=== PATIENT | female | born 1930 | race Caucasian/White ===

== ENCOUNTER → 2016-05-30 | Outpatient (CLI) | payer OTHER, BC ==
[~2016-05-30] MED LIST: ACET325T96 PO; ASCO250C17 PO; B-CO-25 PO; CALC-20 PO; CLOP1TAB5 PO; CZR50 PO; DOCU-94 PO; DONE1TAB11 PO; DONE1TAB26 PO; ENAL5TAB PO; EZET10TA47 PO; FINA1TAB36 PO; FLUT1INH7 INH; FRS/40 PO; FURO-85 PO; HYZ/50125 PO; IPRASOL4 INH; LOSA50TA6 PO; LVQ750 PO; METO25TA3 PO; MRLP17 PO; NIAC750T2 PO; OXGN; PLMINSR5 INH; POLY335019 PO; PRED10TA PO; RIVA4.6D TD; RMNER16 PO; SERT25TA PO; TPRSR25 PO; VITACAP37 PO; [UNRECOGNIZED DRUG - OTHER] PO
[2016-05-30 10:28] LABS: URINE APPEARANCE CLOUDY (CLEAR); URINE BILIRUBIN NEG (NEG); URINE COLOR YELLOW; URINE EPITHELIAL CELL AUTO >30 /lpf (0-5); URINE NITRITE NEG (NEG); URINE SPECIFIC GRAVITY 1.025 (1.000-1.030); UROBILINOGEN NEG (NEG)
[2016-05-30 10:30] LABS: MANUAL MICROSCOPIC REQUIRED? NO; REVIEW REQ? NO
== END ==
LOC: C.LABOUTLO 09:39
PROVIDERS: ATTEND Hospitalist
DX: N39.0 Urinary tract infection, site not specified (principal)

== ENCOUNTER 2016-07-13 09:38 | Inpatient (IN) | payer OTHER, BC ==
[~2016-07-13] VITALS: Ht 157.5 cm; Wt 109.9 kg
[~2016-07-13 09:38] MED LIST changes: -ACET325T96 PO; -CZR50 PO; -DOCU-94 PO; -DONE1TAB11 PO; -FLUT1INH7 INH; -FRS/40 PO; -FURO-85 PO; -HYZ/50125 PO; -IPRASOL4 INH; -LOSA50TA6 PO; -LVQ750 PO; -METO25TA3 PO; -MRLP17 PO; -OXGN; -PLMINSR5 INH; -POLY335019 PO; -PRED10TA PO; -SERT25TA PO; -TPRSR25 PO
--- NOTE | 2016-07-13 10:04 | EMERGENCY ROOM VISIT NOTE ---
History Report prepared by Radha: Kylie Wilson Under the Supervision of: Dr. Nabor العراقي D.O. First contact with patient: 09:49 Chief Complaint: SHORTNESS OF BREATH Stated Complaint: SOB, FEVER, HAS HISTORY OF CHF Nursing Triage Summary: Patient's daughter states [facility] called her to bring pt to ED for fever, cough, SOB for a few days, Tylenol not helping. Pt c/o cough, congestion, SOB. Tylenol 0830 History of Present Illness The patient is a 86 year old female who presents to the Emergency Room from [facility] to be evaluated for a persistent fever that began a couple days ago. Per patient's daughter, her temperature has been around 100. She was given Tylenol or Motrin about 1.5 hours ago although she cannot remember which. The patient also complains of shortness of breath and a nonproductive cough. Her daughter notes that she has some confusion at baseline. She wears oxygen at night. Past medical history includes congestive heart failure. Denies headaches , runny nose, chest pain, urinary symptoms, or other complaints. She had a flu shot in December 2015. Source of History: patient, family (daughter) Onset: a couple days ago Position: other (global) Symptom Intensity: temp of 100 Timing: other (persistent) Associated Symptoms: + SOB, + cough (nonproductive), No chest pain, No headache, No urinary symptoms Review of Systems See HPI for pertinent positives & negatives. A total of 10 systems reviewed and were otherwise negative. Past Medical & Surgical Medical Problems: (1) Alzheimers disease (2) High cholesterol (3) Hypertension (4) PNA (pneumonia) Family History Noncontributory secondary to age. Social History Smoking Status: Never Smoker Alcohol Use: none Drug Use: none Housing Status: lives alone Occupation Status: retired Current/Historical Medications Scheduled Budesonide (Pulmicort Respules 0.5MG/2ML), 2 ML INH BID Fluticasone Furoate-Vilanterol (Breo Ellipta 200-25 Mcg/INH), 1 PUFF INH DAILY Hctz/Losartan (Hyzaar 12.5MG/50MG), 1 TAB PO DAILY Scheduled PRN Acetaminophen Tab (Tylenol), 650 MG PO Q4 PRN for Mild Pain Docusate Sodium (Colace), 1 CAP PO BID PRN for Constipation Ipratropium-Albuterol (Duoneb), 1 TREATMENT INH Q6 PRN for SOB/Wheezing Oxygen (Oxygen), 2 LITERS NA HS PRN for Shortness of Breath Allergies Coded Allergies: No Known Allergies (Unverified , 02/19/13) Physical Exam Vital Signs Date Time Temp Pulse Resp B/P Pulse Ox O2 Delivery O2 Flow Rate FiO2 07/13/16 11:39 74 19 141/71 91 Room Air 07/13/16 11:34 Room Air 07/13/16 10:03 79 07/13/16 09:43 37.6 82 19 124/72 92 Room Air 07/13/16 09:43 92 Room Air Physical Exam GENERAL: Patient is awake, alert, and in no acute distress. Patient is mildly anxious but comfortable appearing. EYES: The conjunctivae are clear. The pupils are round and reactive. EARS, NOSE, MOUTH AND THROAT: The nose is without any evidence of any deformity. Mucous membranes are moist tongue is midline NECK: The neck is nontender and supple. RESPIRATORY: Normal respiratory effort is noted there is no evidence of wheezing rhonchi or rales CARDIOVASCULAR: Lung sounds are diminished throughout. Breath sounds were absent in the right base. Mild tachypnea with mild conversational dyspnea was appreciated. GASTROINTESTINAL: The abdomen is soft. Bowel sounds are present in all quadrants. Abdomen is nontender MUSCULOSKELETAL/EXTREMITIES: There is no evidence of gross deformity full range of motion is noted in the hips and shoulders SKIN: There was trace pedal edema bilaterally. NEUROLOGIC: Patient is awake alert and oriented x3 Medical Decision & Procedures ER Provider Diagnostic Interpretation: Radiology results as stated below per my review and radiologist interpretation: CHEST ONE VIEW PORTABLE CLINICAL HISTORY: Sepsis dyspnea COMPARISON STUDY: 08/09/2015 FINDINGS: Moderate stable cardiomegaly. Mild bibasilar infiltrative change. IMPRESSION: Mild bibasilar infiltrative change. Stable cardia megaly. Electronically signed by: Tommy Heart M.D. 07/13/2016 10:24 AM Dictated Date/Time: 07/13/2016 10:22 AM Laboratory Results 07/13/16 10:05 Red Blood Count 3.95, Mean Corpuscular Volume 96.7, Mean Corpuscular Hemoglobin 31.6, Mean Corpuscular Hemoglobin Concent 32.7, Mean Platelet Volume 10.2, Neutrophils (%) (Auto) 68.9, Lymphocytes (%) (Auto) 19.0, Monocytes (%) (Auto) 9.5, Eosinophils (%) (Auto) 1.2, Basophils (%) (Auto) 0.9, Neutrophils # (Auto) 4.05, Lymphocytes # (Auto) 1.12, Monocytes # (Auto) 0.56, Eosinophils # (Auto) 0.07, Basophils # (Auto) 0.05 07/13/16 10:05 Test 07/13/16 00:00 07/13/16 10:05 07/13/16 10:14 07/13/16 10:45 Influenza Type A Antigen Neg for Influ A (NEG) Influenza Type B Antigen Neg for Influ B (NEG) White Blood Count 5.88 K/uL (4.8-10.8) Red Blood Count 3.95 M/uL (4.2-5.4) Hemoglobin 12.5 g/dL (12.0-16.0) Hematocrit 38.2 % (37-47) Mean Corpuscular Volume 96.7 fL (80-100) Mean Corpuscular Hemoglobin 31.6 pg (25-34) Mean Corpuscular Hemoglobin Concent 32.7 g/dl (32-36) Platelet Count 152 K/uL (130-400) Mean Platelet Volume 10.2 fL (7.4-10.4) Neutrophils (%) (Auto) 68.9 % Lymphocytes (%) (Auto) 19.0 % Monocytes (%) (Auto) 9.5 % Eosinophils (%) (Auto) 1.2 % Basophils (%) (Auto) 0.9 % Neutrophils # (Auto) 4.05 K/uL (1.4-6.5) Lymphocytes # (Auto) 1.12 K/uL (1.2-3.4) Monocytes # (Auto) 0.56 K/uL (0.11-0.59) Eosinophils # (Auto) 0.07 K/uL (0-0.5) Basophils # (Auto) 0.05 K/uL (0-0.2) RDW Standard Deviation 52.1 fL (36.4-46.3) RDW Coefficient of Variation 14.6 % (11.5-14.5) Immature Granulocyte % (Auto) 0.5 % Immature Granulocyte # (Auto) 0.03 K/uL (0.00-0.02) Erythrocyte Sedimentation Rate 32 mm/hr (0-21) Prothrombin Time 11.4 SECONDS (9.0-12.0) Prothromb Time International Ratio 1.1 (0.9-1.1) Activated Partial Thromboplast Time 26.6 SECONDS (21.0-31.0) Partial Thromboplastin Ratio 1.0 Anion Gap 5.0 mmol/L (3-11) Estimated GFR () 92.2 Estimated GFR (Non- 79.6 BUN/Creatinine Ratio 28.6 (10-20) Calcium Level 8.6 mg/dl (8.5-10.1) Phosphorus Level 2.7 mg/dl (2.5-4.9) Magnesium Level 2.1 mg/dl (1.8-2.4) Total Bilirubin 0.6 mg/dl (0.2-1) Aspartate Amino Transf (AST/SGOT) 26 U/L (15-37) Alanine Aminotransferase (ALT/SGPT) 22 U/L (12-78) Alkaline Phosphatase 46 U/L (45-117) Total Creatine Kinase 250 U/L (26-192) Creatine Kinase MB 1.3 ng/ml (0.5-3.6) Creatine Kinase MB Ratio 0.5 (0-3.0) Troponin I < 0.015 ng/ml (0-0.045) C-Reactive Protein 2.42 mg/dl (0-0.29) Pro-B-Type Natriuretic Peptide 515 pg/ml (0-1800) Total Protein 6.4 gm/dl (6.4-8.2) Albumin 3.1 gm/dl (3.4-5.0) Globulin 3.3 gm/dl (2.5-4.0) Albumin/Globulin Ratio 0.9 (0.9-2) Bedside Lactic Acid Venous 1.63 mmol/L (0.90-1.70) Venous Blood pH 7.47 (7.36-7.41) Venous Blood Partial Pressure CO2 45 mmHg (38.0-50.0) Venous Blood Partial Pressure O2 55 mmHg Venous Blood HCO3 32 mmol/L Venous Blood Oxygen Saturation 88.7 % Venous Blood Base Excess 7.2 mmol/L Laboratory results per my review. Medications Administered Medications (Trade) Dose Ordered Sig/Bryon Route Start Time Stop Time Status Last Admin Dose Admin Levofloxacin 750 mg 750 mg NOW STAT IV 07/13/16 10:34 07/13/16 10:35 DC 07/13/16 11:40 750 MG Sodium Chloride (Nss 1000ml) 1,000 ml @ 999 mls/hr Q1H1M STAT IV 07/13/16 11:18 07/13/16 12:18 DC 07/13/16 11:40 999 MLS/HR ECG Indication: SOB/dyspnea Rate (beats per minute): 77 Rhythm: normal sinus Findings: no ectopy, other (no acute ST segment abnormality) ED Course 0957: The patient was evaluated in room B4. A complete history and physical examination were performed. 1034: Ordered Levofloxacin 750 mg IV, NSS 1000 ml @ 999 mls/hr IV. 1036: I reassessed the patient. 1120: Upon reevaluation, the patient is resting comfortably. I discussed results and treatment plan with the patient and her daughter. They verbalized agreement and understanding. 1127: I discussed the case with Dr. Lizbeth HARVEY Hospitalist. The patient will be evaluated for further management. Medical Decision Prior records/ancillary studies reviewed. Triage Nursing notes reviewed. Additional history obtained from the family. The patient's history was concerning for respiratory difficulties. Differential diagnosis: Etiologies such as infections, reactive airway disease, pneumonia, pneumothorax , COPD, CHF, cardiac ischemia, pulmonary embolism, musculoskeletal, gastrointestinal, as well as others were entertained. The patient is an 86-year-old female who presented to the emergency department for an evaluation of difficulty breathing. The patient had a low-grade fever noted at the custodial. The patient and a chest x-ray which did reveal signs of bilateral pneumonia. She was treated with IV fluids and IV antibiotics in emergency department. She was found have some degree of tachypnea. Given the patient's age and comorbidities as well as the findings on chest x-ray I felt she may be a candidate for inpatient management of this pneumonia. I discussed her case with the on-call [facility] hospitalist group. They've agreed to evaluate the patient in the emergency department for further management and disposition. Consults Time Called: [phone] Consulting Physician: Dr. Lizbeth HARVEY Hospitalist Returned Call: [phone] I discussed the case with him. The patient will be evaluated for further management. Impression Primary Impression: Bilateral pneumonia Scribe Attestation The scribe's documentation has been prepared under my direction and personally reviewed by me in its entirety. I confirm that the note above accurately reflects all work, treatment, procedures, and medical decision making performed by me. Departure Information Dispostion Being Evaluated By Hospitalist Referrals No Doctor, Assigned (PCP) Patient Instructions [facility] Problem Qualifiers Primary Impression: Bilateral pneumonia Pneumonia type: due to unspecified organism Lung location: lower lobe of lung Qualified Codes: J18.9 - Pneumonia, unspecified organism
[2016-07-13 10:22] LABS: BASO % 0.9 %; BASO ABS # 0.05 K/uL (0-0.2); COMPLETE YES; EOS % 1.2 %; HEMATOCRIT 38.2 % (37-47); IG% 0.5 %; LYMPH ABS # 1.12 K/uL (1.2-3.4); MEAN CELL VOLUME 96.7 fL (80-100); MEAN CORPUSCULAR HEMOGLOBIN 31.6 pg (25-34); MEAN CORPUSCULAR HGB CONC 32.7 g/dl (32-36); MEAN PLATELET VOLUME 10.2 fL (7.4-10.4); MONO % 9.5 %; NEUT % 68.9 %; PLATELET COUNT 152 K/uL (130-400); RED BLOOD COUNT 3.95 M/uL (4.2-5.4); WHITE BLOOD COUNT 5.88 K/uL (4.8-10.8)
--- NOTE | 2016-07-13 10:26 | DIAGNOSTIC IMAGING REPORT ---
CHEST ONE VIEW PORTABLE CLINICAL HISTORY: Sepsis dyspnea COMPARISON STUDY: 08/09/2015 FINDINGS: Moderate stable cardiomegaly. Mild bibasilar infiltrative change. IMPRESSION: Mild bibasilar infiltrative change. Stable cardia megaly. Electronically signed by: Tommy Heart M.D. 07/13/2016 10:24 AM Dictated Date/Time: 07/13/2016 10:22 AM
[2016-07-13] MEDS ORDERED: LEVAQUIN 750MG / 150ML D5W IV STA (10:34)
[2016-07-13] MEDS ORDERED: FLUT1INH7 INH (10:36)
[2016-07-13 10:42] LABS: ALT/SGPT 22 U/L (12-78); BLOOD UREA NITROGEN 20 mg/dl (7-18); BUN/CREATININE RATIO 28.6 (10-20); C-REACTIVE PROTEIN 2.42 mg/dl (0-0.29); CALCIUM 8.6 mg/dl (8.5-10.1); CARBON DIOXIDE 31 mmol/L (21-32); CHLORIDE 103 mmol/L (98-107); GLUCOSE 103 mg/dl (70-99); MAGNESIUM 2.1 mg/dl (1.8-2.4); POTASSIUM 3.4 mmol/L (3.5-5.1); SODIUM 139 mmol/L (136-145)
[2016-07-13] MEDS ORDERED: DOCU-94 PO (10:42)
[2016-07-13] MEDS ORDERED: ACET325T96 PO (10:42)
[2016-07-13] MEDS ORDERED: HYZ/50125 PO (10:42)
[2016-07-13] MEDS ORDERED: OXGN (10:42)
[2016-07-13] MEDS ORDERED: IPRASOL4 INH (10:42)
[2016-07-13] MEDS ORDERED: PLMINSR5 INH (10:42)
[2016-07-13 10:45] LABS: ALB/GLOB RATIO 0.9 (0.9-2); ALKALINE PHOSPHATASE 46 U/L (45-117); AST/SGOT 26 U/L (15-37); CKMB/CK RATIO 0.5 (0-3.0); PHOSPHORUS 2.7 mg/dl (2.5-4.9)
[2016-07-13 10:46] LABS: INR 1.1 (0.9-1.1); PROTHROMBIN TIME (PATIENT) 11.4 SECONDS (9.0-12.0)
[2016-07-13 10:59] LABS: VEN BLD GAS O2 SATURATION 88.7 %; VEN BLOOD GAS BASE EXCESS 7.2 mmol/L
[2016-07-13] MEDS ORDERED: SODIUM CHLORIDE 0.9% 1000ML 1,000 ML IV STA (11:18)
--- NOTE | 2016-07-13 12:43 | History and Physical ---
History & Physical Date & Time of Service: Jul 13, 2016 at 12:40 Chief Complaint: Sob, Fever, Has History Of Chf Primary Care Physician: Christina Lemos DO History of Present Illness Source: patient, family Attending: Dr. Major This is an 86-year-old female this admitted for shortness of breath and fever over last 3-4 days. She currently resides at [facility] and has been there since 2012 when she had a humeral fracture. She has a daughter, Debbi, that works in our GI lab. Debbi is available for my interview and physical examination and substantiates the history as given by her mother. The patient apparently had fever over last 3-4 days with productive sputum of yellow to wen color and thickening inconsistency of last two days. Patient did have increased shortness of breath last night and required multiple bronchodilator treatments with little effect. Patient is not hypoxic and currently has an SaO2 of 93% on room air. Chest x-ray was completed and shows probable left lower lobe infiltrate with some blunting of the right costophrenic angle. Patient is rhonchorous as well as with Rales bilaterally in the bases on exam. Patient is hemodynamically stable and denies any chest pain or tightness. She has no back pain or flank pain. She denies reproducible pain or pain with cough. She has no pleuritic pain or hemoptysis. Patient has no history of tobacco abuse or ethanol abuse and no vocational or environmental exposure concerning for pulmonary disease. She is on Breo-Ellipta and albuterol as an outpatient. She denies history of COPD or follow-up with pulmonology. Otherwise, past medical history is significant for dementia, hypertension, and CHF. Most recent documented echocardiogram is from 2011 and was a dobutamine stress echocardiogram. Patient had no myocardial ischemia at 85% of maximum predicted heart rate. There was no dobutamine-induced chest pain. No EKG changes. Baseline echocardiogram noted to have normal left ventricular systolic function and mild left ventricular hypertrophy. LVEF was estimated at 60%. The right ventricle demonstrated normal systolic function. While the patient is listed have dementia with questionable Alzheimer's, she is alert and oriented and able to give name, date of , place, and general history but looks to her daughter for confirmation on history and all questions. She has no other acute complaints. 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 Prior to that worked for the [employer] in [place]) Immunizations History of Influenza Vaccine: Yes Influenza Vaccine Date: Feb 21, 2013 History of Tetanus Vaccine?: Unknown History of Pneumococcal: Yes History of Hepatitis B Vaccine: Unknown Multi-Drug Resistant Organisms History of MDRO: No Allergies Coded Allergies: No Known Allergies (Unverified , 02/19/13) Home Medications Scheduled Budesonide (Pulmicort Respules 0.5MG/2ML), 2 ML INH BID Fluticasone Furoate-Vilanterol (Breo Ellipta 200-25 Mcg/INH), 1 PUFF INH DAILY Hctz/Losartan (Hyzaar 12.5MG/50MG), 1 TAB PO DAILY Scheduled PRN Acetaminophen Tab (Tylenol), 650 MG PO Q4 PRN for Mild Pain Docusate Sodium (Colace), 1 CAP PO BID PRN for Constipation Ipratropium-Albuterol (Duoneb), 1 TREATMENT INH Q6 PRN for SOB/Wheezing Oxygen (Oxygen), 2 LITERS NA HS PRN for Shortness of Breath Review of Systems A total of 12 systems was reviewed and is negative other than as listed above in the HPI Physical Exam Vital Signs Date Time Temp Pulse Resp B/P Pulse Ox O2 Delivery O2 Flow Rate FiO2 07/13/16 11:39 74 19 141/71 91 Room Air 07/13/16 11:34 Room Air 07/13/16 10:03 79 07/13/16 09:43 37.6 82 19 124/72 92 Room Air 07/13/16 09:43 92 Room Air GENERAL : No acute distress. Pleasant EYES: No icterus, gaze conjugate. Pupils equal and reactive to light area to nystagmus NOSE: No evidence of epistaxis. No septal breech MOUTH: No lesions or candidiasis. No significant dental caries. No dentures NECK: Supple. No appreciation of carotid bruits. No lymphadenopathy. LUNGS: Bilateral upper field rhonchi and bibasilar rales. No appreciation of bronchospasm HEART: Regular, rate controlled area no appreciation of ectopy ABDOMEN: Soft, NT, ND, BS Present. No guarding or tenderness to deep palpation EXTREMITIES: Bilateral +1 pitting of the lower extremities, pedal pulses intact and equal. NEURO: A&OX3. Needs redirected at times. Demonstrates good sense of humor that is appropriate. Deep tendon reflexes of brachioradialis, patellar tendons 2/4 bilaterally. No pronator drift. Cervical or function intact with finger to nose and rapid alternating movements. Gait and Romberg deferred. Toes unequivocal bilaterally Diagnostics Laboratory Results Results Past 24 Hours Test 07/13/16 10:05 07/13/16 10:14 07/13/16 10:45 Range/Units White Blood Count 5.88 4.8-10.8 K/uL Red Blood Count 3.95 4.2-5.4 M/uL Hemoglobin 12.5 12.0-16.0 g/dL Hematocrit 38.2 37-47 % Mean Corpuscular Volume 96.7 80-100 fL Mean Corpuscular Hemoglobin 31.6 25-34 pg Mean Corpuscular Hemoglobin Concent 32.7 32-36 g/dl Platelet Count 152 130-400 K/uL Mean Platelet Volume 10.2 7.4-10.4 fL Neutrophils (%) (Auto) 68.9 % Lymphocytes (%) (Auto) 19.0 % Monocytes (%) (Auto) 9.5 % Eosinophils (%) (Auto) 1.2 % Basophils (%) (Auto) 0.9 % Neutrophils # (Auto) 4.05 1.4-6.5 K/uL Lymphocytes # (Auto) 1.12 1.2-3.4 K/uL Monocytes # (Auto) 0.56 0.11-0.59 K/uL Eosinophils # (Auto) 0.07 0-0.5 K/uL Basophils # (Auto) 0.05 0-0.2 K/uL RDW Standard Deviation 52.1 36.4-46.3 fL RDW Coefficient of Variation 14.6 11.5-14.5 % Immature Granulocyte % (Auto) 0.5 % Immature Granulocyte # (Auto) 0.03 0.00-0.02 K/uL Erythrocyte Sedimentation Rate 32 0-21 mm/hr Prothrombin Time 11.4 9.0-12.0 SECONDS Prothromb Time International Ratio 1.1 0.9-1.1 Activated Partial Thromboplast Time 26.6 21.0-31.0 SECONDS Partial Thromboplastin Ratio 1.0 Sodium Level 139 136-145 mmol/L Potassium Level 3.4 3.5-5.1 mmol/L Chloride Level 103 98-107 mmol/L Carbon Dioxide Level 31 21-32 mmol/L Anion Gap 5.0 3-11 mmol/L Blood Urea Nitrogen 20 7-18 mg/dl Creatinine 0.70 0.60-1.20 mg/dl Estimated GFR () 92.2 Estimated GFR (Non- 79.6 BUN/Creatinine Ratio 28.6 10-20 Random Glucose 103 70-99 mg/dl Calcium Level 8.6 8.5-10.1 mg/dl Phosphorus Level 2.7 2.5-4.9 mg/dl Magnesium Level 2.1 1.8-2.4 mg/dl Total Bilirubin 0.6 0.2-1 mg/dl Aspartate Amino Transf (AST/SGOT) 26 15-37 U/L Alanine Aminotransferase (ALT/SGPT) 22 12-78 U/L Alkaline Phosphatase 46 45-117 U/L Total Creatine Kinase 250 26-192 U/L Creatine Kinase MB 1.3 0.5-3.6 ng/ml Creatine Kinase MB Ratio 0.5 0-3.0 Troponin I < 0.015 0-0.045 ng/ml C-Reactive Protein 2.42 0-0.29 mg/dl Pro-B-Type Natriuretic Peptide 515 0-1800 pg/ml Total Protein 6.4 6.4-8.2 gm/dl Albumin 3.1 3.4-5.0 gm/dl Globulin 3.3 2.5-4.0 gm/dl Albumin/Globulin Ratio 0.9 0.9-2 Bedside Lactic Acid Venous 1.63 0.90-1.70 mmol/L Venous Blood pH 7.47 7.36-7.41 Venous Blood Partial Pressure CO2 45 38.0-50.0 mmHg Venous Blood Partial Pressure O2 55 mmHg Venous Blood HCO3 32 mmol/L Venous Blood Oxygen Saturation 88.7 % Venous Blood Base Excess 7.2 mmol/L Microbiology Results 07/13/16 Blood Culture, Received Pending 07/13/16 Blood Culture, Received Pending Diagnostic Radiology CHEST ONE VIEW PORTABLE CLINICAL HISTORY: Sepsis dyspnea COMPARISON STUDY: 08/09/2015 FINDINGS: Moderate stable cardiomegaly. Mild bibasilar infiltrative change. IMPRESSION: Mild bibasilar infiltrative change. Stable cardia megaly. Electronically signed by: Tommy Heart M.D. 07/13/2016 10:24 AM Impression Assessment and Plan PNEUMONIA Patient with increased sputum over last 2-3 days with a MAXIMUM TEMPERATURE of 37.6 Celsius Sputum consistency been dark wen and thick No hemoptysis or chest pain. No pleuritic pain. Chest x-ray reveals bilateral development of infiltrate Start Levofloxacin 750 mg IV daily. First dose received in the emergency department. Pharmacy consultation for dosing secondary to age Check sputum culture Check blood cultures 2 No leukocytosis - WBC 5.88 Oxygenation adequate on room air Incentive spirometry Will admit to medical floor HISTORY OF ASTHMA No evidence of PFTs Currently on Breo-Ellipta and albuterol as an outpatient Continue bronchodilators No bronchospasm on examination Oxygenation adequate on room air Follow clinically HISTORY OF HYPERTENSION Systolic blood pressure 135 at the time of my exam Continue home medications Vital signs per protocol HISTORY OF CHF No evidence of fluid overload on chest x-ray Most recent echocardiogram with no mention of systolic or diastolic heart dysfunction If no improvement to shortness of breath consider repeat echocardiogram At this time patient will be AHA diet Received 1 L of fluid in the emergency department Saline lock but no maintenance fluids at this time Monitor clinically HYPERLIPIDEMIA Continue usual home meds GI No history of GERD No indication for GI prophylaxis at this time Continue to monitor clinically DVT PROPHYLAXIS No history of thromboembolic disease Teds/SCDs Subcutaneous heparin every 12 hours Thank you for including us in the care of this patient. Case and presentation discussed with Dr. Major prior to decision for admission. Please refer to Dr. Major's addendum for further recommendations Level of Care Med/Surg Advanced Directives Existing Advance Directive: No Existing Living Will: No Existing Power of Industrial Engineering Analyst: No Existing Health Care Proxy: No Resuscitation Status DO NOT RESUSCITATE (discussion with patient with daughter in room. No heroic measures should patient have cardiopulmonary arrest. However, if pneumonia worsens and patient would benefit from one or two days of mechanical ventilation for treatment of pneumonia this will be agreeable to the patient and the family.) VTE Prophylaxis VTE Risk Assessment Done? Y/N: Yes Risk Level: Moderate Given or contraindicated: Unfractionated heparin SQ, T.E.D. Stockings, SCD's Social Service Consult Lives in [facility] Note Attending Admission Note & Attestation: Pt seen/examined, chart reviewed, care plan d/w NURIA Anaya. I agree w/ the orozco components of his admission documentation. 86yo female with h/o Alzheimer's dementia & HTN presenting with several days of cough, sputum production and fever. Daughter also has noted worsening LE edema. She does not carry a formal dx of COPD or asthma, but apparently has been using inhalers for about 6 months due to respiratory issues. Daughter has not noted any dysphagia/swallowing difficulty. PMH, PSH, allergies, meds, sochx, famhx, ros - reviewed VSS afebrile gen - gets dyspneic with laying in the bed, o/w NAD neck - JVD present heart - RRR, s1, s2 lungs - decreased BS bases, scant rales bases, no increased WOB abd - soft, NT, ND, no HSM ext - left knee effusion vs bursal fluid but no pain; 1+ edema ankles b/l cxr - bibasilar infiltrates A/P: 1. suspected b/l community-aquired pneumonia 2. ?chronic lung disease with use of inhalers 3. ?acute/chronic diastolic CHF agree with IV abx lasix 20mg IV x 1 labs in AM pulmonary toilet no Rx on left knee given no symptoms Jorden Major MD
[2016-07-13] MEDS ORDERED: DOCUSATE SODIUM 100 MG CAP PO PRN (13:00)
[2016-07-13] MEDS ORDERED: ALBUT/IPRATROP 3MG/0.5MG NEB 3 ML VIAL INH PRN (13:00)
[2016-07-13] MEDS ORDERED: ACETAMINOPHEN 325 MG TAB PO PRN (13:00)
[2016-07-13] MEDS ORDERED: LEVOFLOXACIN CONSULT ACTIVE PRN (13:13)
[2016-07-13 13:52] LABS: URINE APPEARANCE CLEAR (CLEAR); URINE BILIRUBIN NEG (NEG); URINE COLOR YELLOW; URINE EPITHELIAL CELL AUTO 20-30 /lpf (0-5); URINE NITRITE NEG (NEG); URINE SPECIFIC GRAVITY 1.016 (1.000-1.030); UROBILINOGEN NEG (NEG); ZZUR CULT IF INDIC CLEAN CATCH NO
[2016-07-13] MEDS ORDERED: PATIENT'S HEIGHT AND/OR WEIGHT NEEDED SCH (14:00)
[2016-07-13 14:05] LABS: MANUAL MICROSCOPIC REQUIRED? NO; REVIEW REQ? NO
[2016-07-13 15:30] VITALS: BP 159/84; PULSE 75; TEMP 36.7; O2SAT 93
[2016-07-13 15:40] LABS: INFLUENZA A PCR Neg for Influ A (NEG); INFLUENZA B PCR Neg for Influ B (NEG)
[2016-07-13] MEDS ORDERED: POTASSIUM CHLORIDE 10 MEQ TABCR PO STA (15:50)
[2016-07-13] MEDS ORDERED: FUROSEMIDE INJ 20 MG in SYRINGE 0 ML IV SCH (16:00)
[2016-07-13 17:12] VITALS: BP 159/84; PULSE 75; TEMP 36.7; O2SAT 93; Ht 157.5 cm; Wt 109.9 kg
[2016-07-13 19:32] VITALS: PULSE 68; O2SAT 93
[2016-07-13] MEDS: BUDESONIDE 0.5 MG/2 ML VIAL (PULMICORT) INH SCH (19:32)
[2016-07-13] MEDS: HEPARIN SOD 5000 UNIT/0.5 ML CARP SQ SCH (21:30)
[2016-07-14] VITALS (9 sets, daily range): BP systolic 130–164; BP diastolic 80–83; PULSE 70–86; TEMP 36.5–37.2; O2SAT 91–96
[2016-07-14] MEDS ORDERED: NURSING DECISION MEDICATION ORDER SCH (01:30)
[2016-07-14] MEDS ORDERED: MICONAZOLE NITRATE POWDER 43 GM EXT PRN (02:00)
[2016-07-14] MEDS: BUDESONIDE 0.5 MG/2 ML VIAL (PULMICORT) INH SCH ×2 (07:22→19:37)
--- NOTE | 2016-07-14 08:14 | Clinical Documentation Query ---
QUERY 1 OF [address] ELLIS, In your clinical opinion does this patient have: ( ) Chronic kidney disease, stage 2 ( ) Other explanation of clinical findings (Please Explain) ( ) Unable to determine (Please Define) ( ) Need to Discuss ( x ) Not Agree - no CKD; CrCl >60 The medical record reflects the following clinical findings, treatment, and risk factors. Clinical Indicators: 86 yo female presenting with pneumonia and suspected acute on chronic diastolic CHF. Review of historical GFR showed range of 64.3-84.3 over the past 2 years Treatment: monitor PRP's/GFR Risk Factors: age, HTN, chronic diastolic CHF QUERY 2 OF 2 In your clinical opinion does this patient have: (x ) morbid obesity with BMI 45.1 ( ) Other explanation of clinical findings (Please Explain) ( ) Unable to determine (Please Define) ( ) Need to Discuss ( ) Not Agree A significantly high ( > 40) or low ( < 19) BMI will impact the severity of illness and risk of mortality of your patient. However, the physician must document a correlating diagnosis in the medical record. Please clarify and document your clinical opinion in the progress notes and discharge summary. Terms such as "probable", "suspected", "likely", "questionable", "possible", or "still to be ruled out" are acceptable. IF IN AGREEMENT, YOU MUST DOCUMENT ABOVE DIAGNOSTIC STATEMENT IN DAILY PROGRESS NOTES AND DISCHARGE SUMMARY. This document is not part of the patient's record. Thank You, Amber Hodges, RN [phone]
[2016-07-14] MEDS: LOSARTAN/HCTZ 50-12.5 EA TAB PO SCH (08:18)
[2016-07-14] MEDS: HEPARIN SOD 5000 UNIT/0.5 ML CARP SQ SCH ×2 (08:21→21:03)
[2016-07-14 08:34] LABS: BASO % 0.9 %; BASO ABS # 0.05 K/uL (0-0.2); COMPLETE YES; EOS % 1.6 %; HEMATOCRIT 37.2 % (37-47); IG% 0.4 %; LYMPH % 33.2 %; LYMPH ABS # 1.83 K/uL (1.2-3.4); MEAN CELL VOLUME 94.7 fL (80-100); MEAN CORPUSCULAR HEMOGLOBIN 31.6 pg (25-34); MEAN CORPUSCULAR HGB CONC 33.3 g/dl (32-36); NEUT % 53.9 %; PLATELET COUNT 144 K/uL (130-400); RED BLOOD COUNT 3.93 M/uL (4.2-5.4); WHITE BLOOD COUNT 5.51 K/uL (4.8-10.8)
[2016-07-14 09:04] LABS: BUN/CREATININE RATIO 24.9 (10-20); CALCIUM 8.1 mg/dl (8.5-10.1); CREATININE 0.61 mg/dl (0.60-1.20); POTASSIUM 3.7 mmol/L (3.5-5.1)
[2016-07-14] MEDS ORDERED: ALBUT/IPRATROP 3MG/0.5MG NEB 3 ML VIAL INH PRN (10:15)
[2016-07-14] MEDS: ALBUT/IPRATROP 3MG/0.5MG NEB 3 ML VIAL INH SCH ×3 (10:15→19:36)
[2016-07-14] MEDS ORDERED: POTASSIUM CHLORIDE 10 MEQ TABCR PO ONE ×2 (11:00→17:30)
[2016-07-14] MEDS ORDERED: FUROSEMIDE INJ 40 MG in SYRINGE 0 ML IV ONE (11:00)
--- NOTE | 2016-07-14 11:06 | DIAGNOSTIC IMAGING REPORT ---
CHEST 2 VIEWS ROUTINE CLINICAL HISTORY: Pneumonia. COMPARISON STUDY: Chest radiograph July 13, 2016. FINDINGS: Lung volumes are normal. There is no pneumothorax or pleural effusion. Moderate cardiomegaly is noted. There is no evidence of pulmonary edema. Bibasilar opacities persist. There is also mild right upper lung interstitial thickening with opacity. IMPRESSION: 1. Persistent bibasilar and right upper lung opacities suggestive of pneumonia. Radiographic follow-up to ensure resolution is recommended. 2. Stable cardiomegaly without evidence of pulmonary edema. Electronically signed by: Marco Ribeiro M.D. 07/14/2016 11:05 AM Dictated Date/Time: 07/14/2016 11:03 AM
[2016-07-14] MEDS ORDERED: LEVOFLOXACIN / D5W 750 MG in PREMIXED IN D5W 150 ML IV SCH (12:00)
[2016-07-14] MEDS ORDERED: FUROSEMIDE INJ 20 MG in SYRINGE 0 ML IV ONE (17:30)
[2016-07-15] VITALS (10 sets, daily range): BP systolic 137–188; BP diastolic 72–78; PULSE 75–84; TEMP 36.4–36.6; O2SAT 91–97
--- NOTE | 2016-07-15 06:08 | Progress Note ---
Subjective Date of Service: late entry for visit July 14, 2016. Subjective Pt evaluation today including: conversation w/ patient, physical exam, chart review, lab review, review of studies (cxr), review of inpatient medication list Pain: none voiced by patient PO Intake: good per staff I received a call this AM from staff that she was having hard time breathing and that lung sound revealed significant crackles She apparently was visibly dyspneic order for lasix 40mg IV x 1 given had 2 liter diuresis by the time of my assessment her lung exam and overall status were much improved staff report confusion throughout the day Problem List Medical Problems: (1) Bilateral pneumonia Status: Acute Review of Systems unable to obtain 2nd to altered MS Objective Vital Signs Date Time Temp Pulse Resp B/P Pulse Ox O2 Delivery O2 Flow Rate FiO2 07/15/16 00:00 Nasal Cannula 2.0 07/14/16 23:17 36.8 86 17 164/83 91 Nasal Cannula 2.0 07/14/16 19:37 78 16 93 Room Air 07/14/16 15:45 Nasal Cannula 2.0 07/14/16 15:27 36.5 78 18 130/80 96 Room Air 07/14/16 15:19 75 16 96 Nasal Cannula 2.0 07/14/16 10:16 70 16 96 Nasal Cannula 2.0 07/14/16 08:58 37.2 70 16 148/83 93 Nasal Cannula 2.0 07/14/16 08:00 Nasal Cannula 2.0 07/14/16 07:22 72 16 95 Nasal Cannula 5.0 Physical Exam General Appearance: no apparent distress ENT: pharynx normal Neck: + JVD Respiratory/Chest: no respiratory distress, no accessory muscle use, + crackles (both bases), + wheezing (b/l) Cardiovascular: regular rate, rhythm, no gallop Abdomen: normal bowel sounds, non tender, soft, no organomegaly Extremities: + pedal edema, + swelling Neurologic/Psychiatric: alert, + disoriented Laboratory Results Last 24 Hours Test 07/14/16 08:10 07/15/16 04:44 White Blood Count 5.51 K/uL Red Blood Count 3.93 M/uL Hemoglobin 12.4 g/dL Hematocrit 37.2 % Mean Corpuscular Volume 94.7 fL Mean Corpuscular Hemoglobin 31.6 pg Mean Corpuscular Hemoglobin Concent 33.3 g/dl Platelet Count 144 K/uL Mean Platelet Volume 10.0 fL Neutrophils (%) (Auto) 53.9 % Lymphocytes (%) (Auto) 33.2 % Monocytes (%) (Auto) 10.0 % Eosinophils (%) (Auto) 1.6 % Basophils (%) (Auto) 0.9 % Neutrophils # (Auto) 2.97 K/uL Lymphocytes # (Auto) 1.83 K/uL Monocytes # (Auto) 0.55 K/uL Eosinophils # (Auto) 0.09 K/uL Basophils # (Auto) 0.05 K/uL RDW Standard Deviation 50.2 fL RDW Coefficient of Variation 14.4 % Immature Granulocyte % (Auto) 0.4 % Immature Granulocyte # (Auto) 0.02 K/uL Sodium Level 141 mmol/L Potassium Level 3.7 mmol/L Chloride Level 105 mmol/L Carbon Dioxide Level 28 mmol/L Anion Gap 8.0 mmol/L Blood Urea Nitrogen 15 mg/dl Creatinine 0.61 mg/dl Est Creatinine Clear Calc Drug Dose 81.1 ml/min Estimated GFR () 96.5 Estimated GFR (Non- 83.2 BUN/Creatinine Ratio 24.9 Random Glucose 97 mg/dl Calcium Level 8.1 mg/dl Assessment and Plan 86yo female with: 1. acute respiratory distress 2nd to acute/chronic diastolic CHF - improved s/ p lasix. 2. community-acquired pneumonia, multi-lobar - day #2 of levaquin; change to PO tomorrow; complete 7 day course. 3. acute/chronic diastolic CHF - gave 40mg lasix this AM; give additional 20mg IV this evening. Follow UOP and daily BMP. 4. 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 Metabolic causes also could be contributing. Supportive care. 5. hypokalemia - resolved. 6. ? of chronic lung disease / reactive airway disease - defer on steroids but add scheduled nebs. 7. DVT proph - heparin. obtain PT, OT consults Continued [facility] stay due to: multiple IV medications needed Discharge planning: uncertain
[2016-07-15] MEDS: LOSARTAN/HCTZ 50-12.5 EA TAB PO SCH (07:44)
[2016-07-15] MEDS: HEPARIN SOD 5000 UNIT/0.5 ML CARP SQ SCH ×2 (07:45→19:28)
[2016-07-15] MEDS: BUDESONIDE 0.5 MG/2 ML VIAL (PULMICORT) INH SCH ×2 (07:45→18:52)
[2016-07-15] MEDS: ALBUT/IPRATROP 3MG/0.5MG NEB 3 ML VIAL INH SCH ×4 (07:45→18:52)
[2016-07-15 08:07] LABS: BASO % 0.7 %; BASO ABS # 0.04 K/uL (0-0.2); COMPLETE YES; EOS % 1.7 %; HEMATOCRIT 39.5 % (37-47); IG% 0.5 %; LYMPH % 31.9 %; MEAN CELL VOLUME 94.3 fL (80-100); MEAN CORPUSCULAR HEMOGLOBIN 30.8 pg (25-34); MEAN CORPUSCULAR HGB CONC 32.7 g/dl (32-36); MEAN PLATELET VOLUME 9.8 fL (7.4-10.4); MONO % 11.8 %; NEUT % 53.4 %; PLATELET COUNT 147 K/uL (130-400); RED BLOOD COUNT 4.19 M/uL (4.2-5.4); WHITE BLOOD COUNT 5.95 K/uL (4.8-10.8)
[2016-07-15 08:41] LABS: BUN/CREATININE RATIO 26.4 (10-20); CALCIUM 8.7 mg/dl (8.5-10.1); CREATININE 0.66 mg/dl (0.60-1.20); POTASSIUM 4.1 mmol/L (3.5-5.1)
[2016-07-15] MEDS: LEVOFLOXACIN 750 MG TAB PO SCH (12:41)
[2016-07-15] MEDS ORDERED: POTASSIUM CHLORIDE 10 MEQ TABCR PO ONE (15:15)
[2016-07-15] MEDS ORDERED: FUROSEMIDE INJ 40 MG in SYRINGE 0 ML IV ONE (15:15)
[2016-07-15] MEDS: METHYLPREDNISOLONE IV 40 MG in SYRINGE 0 ML IV SCH (20:56)
[2016-07-16] VITALS (11 sets, daily range): BP systolic 140–170; BP diastolic 81–95; PULSE 78–87; TEMP 36.3–36.6; O2SAT 91–95
[2016-07-16] MEDS: HEPARIN SOD 5000 UNIT/0.5 ML CARP SQ SCH ×4 (00:07→21:45)
--- NOTE | 2016-07-16 00:10 | Progress Note ---
Subjective Date of Service: Jul 15, 2016. Subjective Pt evaluation today including: conversation w/ patient, conversation w/ family (daughter by phone), physical exam, chart review, lab review Pain: denies PO Intake: good per staff no issues overnight mild confusion persists still coughing/wheezing worked with PT and walked 150 feet Problem List Medical Problems: (1) Bilateral pneumonia Status: Acute Review of Systems Constitutional: No fever Respiratory: + cough, + wheezing, No sputum Cardiac: No chest pain Abdomen: No pain Objective Vital Signs Date Time Temp Pulse Resp B/P Pulse Ox O2 Delivery O2 Flow Rate FiO2 07/15/16 20:00 92 Room Air 2.0 Nasal Cannula 07/15/16 18:52 84 16 92 Room Air 07/15/16 16:38 36.6 78 16 137/78 91 Room Air 07/15/16 16:00 96 Room Air 07/15/16 15:37 78 16 92 Room Air 07/15/16 11:10 77 16 96 Nasal Cannula 2.0 07/15/16 10:50 91 07/15/16 08:23 36.4 79 18 188/75 91 Nasal Cannula 2.0 07/15/16 08:00 97 Room Air 07/15/16 07:45 75 16 97 Nasal Cannula 2.0 07/15/16 00:00 Nasal Cannula 2.0 Physical Exam General Appearance: no apparent distress ENT: pharynx normal Neck: + JVD Respiratory/Chest: no respiratory distress, no accessory muscle use, + wheezing Cardiovascular: regular rate, rhythm, no gallop, no murmur Abdomen: normal bowel sounds, non tender, soft, no organomegaly Extremities: + pedal edema (1+ b/l ) Neurologic/Psychiatric: alert, + disoriented Laboratory Results Last 24 Hours Test 07/15/16 08:00 White Blood Count 5.95 K/uL Red Blood Count 4.19 M/uL Hemoglobin 12.9 g/dL Hematocrit 39.5 % Mean Corpuscular Volume 94.3 fL Mean Corpuscular Hemoglobin 30.8 pg Mean Corpuscular Hemoglobin Concent 32.7 g/dl Platelet Count 147 K/uL Mean Platelet Volume 9.8 fL Neutrophils (%) (Auto) 53.4 % Lymphocytes (%) (Auto) 31.9 % Monocytes (%) (Auto) 11.8 % Eosinophils (%) (Auto) 1.7 % Basophils (%) (Auto) 0.7 % Neutrophils # (Auto) 3.18 K/uL Lymphocytes # (Auto) 1.90 K/uL Monocytes # (Auto) 0.70 K/uL Eosinophils # (Auto) 0.10 K/uL Basophils # (Auto) 0.04 K/uL RDW Standard Deviation 50.2 fL RDW Coefficient of Variation 14.6 % Immature Granulocyte % (Auto) 0.5 % Immature Granulocyte # (Auto) 0.03 K/uL Sodium Level 139 mmol/L Potassium Level 4.1 mmol/L Chloride Level 103 mmol/L Carbon Dioxide Level 28 mmol/L Anion Gap 8.0 mmol/L Blood Urea Nitrogen 17 mg/dl Creatinine 0.66 mg/dl Est Creatinine Clear Calc Drug Dose 75.0 ml/min Estimated GFR () 94.0 Estimated GFR (Non- 81.1 BUN/Creatinine Ratio 26.4 Random Glucose 101 mg/dl Calcium Level 8.7 mg/dl Assessment and Plan 86yo female with: 1. acute respiratory distress 2nd to acute/chronic diastolic CHF - resolved. 2. community-acquired pneumonia, multi-lobar - day #3 of levaquin; change to PO today and complete 7 day course. 3. acute/chronic diastolic CHF - improving slowly. Give additional lasix 40mg IV x 1. 4. 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 5. hypokalemia - resolved. 6. wheezing with ? of chronic lung disease / reactive airway disease - add solumedrol 40mg IV q12h. Cont nebs. 7. DVT proph - heparin. PT, OT consults appreciated daughter updated by phone Continued [facility] stay due to: multiple IV medications needed Discharge planning: other (Kelsy Ramirez)
[2016-07-16] MEDS: ALBUT/IPRATROP 3MG/0.5MG NEB 3 ML VIAL INH SCH ×4 (07:30→18:58)
[2016-07-16] MEDS: BUDESONIDE 0.5 MG/2 ML VIAL (PULMICORT) INH SCH ×2 (07:31→18:58)
[2016-07-16 07:32] LABS: BASO % 0.4 %; BASO ABS # 0.02 K/uL (0-0.2); COMPLETE YES; HEMATOCRIT 39.6 % (37-47); IG% 0.7 %; LYMPH % 23.4 %; LYMPH ABS # 1.32 K/uL (1.2-3.4); MEAN CELL VOLUME 93.4 fL (80-100); MEAN CORPUSCULAR HEMOGLOBIN 31.4 pg (25-34); MEAN CORPUSCULAR HGB CONC 33.6 g/dl (32-36); MEAN PLATELET VOLUME 9.9 fL (7.4-10.4); MONO % 1.6 %; NEUT % 73.9 %; PLATELET COUNT 176 K/uL (130-400); RED BLOOD COUNT 4.24 M/uL (4.2-5.4); WHITE BLOOD COUNT 5.65 K/uL (4.8-10.8)
[2016-07-16 08:06] LABS: BUN/CREATININE RATIO 32.7 (10-20); CREATININE 0.66 mg/dl (0.60-1.20); POTASSIUM 4.3 mmol/L (3.5-5.1)
[2016-07-16] MEDS: LOSARTAN/HCTZ 50-12.5 EA TAB PO SCH (09:17)
[2016-07-16] MEDS: METHYLPREDNISOLONE IV 40 MG in SYRINGE 0 ML IV SCH ×2 (09:17→21:44)
[2016-07-16] MEDS: LEVOFLOXACIN 750 MG TAB PO SCH (09:17)
[2016-07-16] MEDS: DOCUSATE SODIUM 100 MG CAP PO SCH ×2 (11:29→20:18)
[2016-07-16] MEDS: POLYETHYLENE (MIRALAX) 17 GM PACK PO SCH (11:29)
[2016-07-16] MEDS: METOPROLOL SUCC 25MG EXT REL TAB PO SCH (11:29)
[2016-07-16] MEDS ORDERED: FUROSEMIDE INJ 40 MG in SYRINGE 0 ML IV ONE (12:00)
[2016-07-16] MEDS ORDERED: POTASSIUM CHLORIDE 10 MEQ TABCR PO ONE (12:00)
[2016-07-16] MEDS: GUAIFENESIN 600 MG TABCR PO SCH ×2 (14:31→20:35)
--- NOTE | 2016-07-16 20:26 | Progress Note ---
Subjective Date of Service: Jul 16, 2016. Subjective Pt evaluation today including: conversation w/ patient, physical exam, chart review, lab review Pain: none voiced PO Intake: good per staff Voiding: incontinence no events overnight confusion is improved; 1:1 observation was discontinued and she did fine without such still mild dyspnea and wheezing along with cough but overall improved Problem List Medical Problems: (1) Bilateral pneumonia Status: Acute Review of Systems Constitutional: No fever Respiratory: + cough, + wheezing Cardiac: No chest pain Abdomen: No pain Objective Vital Signs Date Time Temp Pulse Resp B/P Pulse Ox O2 Delivery O2 Flow Rate FiO2 07/16/16 18:58 82 16 94 Room Air 07/16/16 16:31 36.3 87 16 140/82 91 07/16/16 16:00 93 Room Air 07/16/16 15:33 78 16 94 Room Air 07/16/16 11:35 86 16 94 Room Air 07/16/16 08:08 36.4 86 20 170/95 95 Nasal Cannula 2.0 07/16/16 08:00 95 Room Air 07/16/16 07:31 81 16 95 Nasal Cannula 1.0 07/16/16 00:18 36.6 84 18 151/81 95 2.0 07/16/16 00:00 92 Room Air 2.0 Nasal Cannula Physical Exam General Appearance: no apparent distress, + obese ENT: pharynx normal Neck: + JVD (but improved) Respiratory/Chest: no respiratory distress, no accessory muscle use, + rales ( mild, bases), + wheezing Cardiovascular: regular rate, rhythm, no gallop Abdomen: normal bowel sounds, non tender, soft, no organomegaly Extremities: no pedal edema Neurologic/Psychiatric: alert Laboratory Results Last 24 Hours Test 07/16/16 07:08 White Blood Count 5.65 K/uL Red Blood Count 4.24 M/uL Hemoglobin 13.3 g/dL Hematocrit 39.6 % Mean Corpuscular Volume 93.4 fL Mean Corpuscular Hemoglobin 31.4 pg Mean Corpuscular Hemoglobin Concent 33.6 g/dl Platelet Count 176 K/uL Mean Platelet Volume 9.9 fL Neutrophils (%) (Auto) 73.9 % Lymphocytes (%) (Auto) 23.4 % Monocytes (%) (Auto) 1.6 % Eosinophils (%) (Auto) 0.0 % Basophils (%) (Auto) 0.4 % Neutrophils # (Auto) 4.18 K/uL Lymphocytes # (Auto) 1.32 K/uL Monocytes # (Auto) 0.09 K/uL Eosinophils # (Auto) 0.00 K/uL Basophils # (Auto) 0.02 K/uL RDW Standard Deviation 49.6 fL RDW Coefficient of Variation 14.5 % Immature Granulocyte % (Auto) 0.7 % Immature Granulocyte # (Auto) 0.04 K/uL Sodium Level 138 mmol/L Potassium Level 4.3 mmol/L Chloride Level 102 mmol/L Carbon Dioxide Level 27 mmol/L Anion Gap 9.0 mmol/L Blood Urea Nitrogen 22 mg/dl Creatinine 0.66 mg/dl Est Creatinine Clear Calc Drug Dose 73.7 ml/min Estimated GFR () 94.0 Estimated GFR (Non- 81.1 BUN/Creatinine Ratio 32.7 Random Glucose 146 mg/dl Calcium Level 9.0 mg/dl Assessment and Plan 86yo female with: 1. acute respiratory distress 2nd to acute/chronic diastolic CHF - resolved. 2. community-acquired pneumonia, multi-lobar - day #4 of levaquin; complete 7 day course. 3. acute/chronic diastolic CHF - improved. Give additional lasix 40mg IV x 1. Monitor output as best as possible. BMP am. last echo per outpatient records - 03/2015 - EF 50-55%, grade 2 diastolic dysfunction. Add beta marquise. d/c the HCTZ for now. continue ARB. consider repeat echo to reassess EF. 4. 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 5. hypokalemia - resolved. 6. wheezing with ? of chronic lung disease / reactive airway disease - continue solumedrol 40mg IV q12h. Cont nebs. Improved today. Continue outpatient inhalers. Add mucinex. (of note - daughter reports 6-12 months of respiratory issues and institution of multiple inhalers but no prior dx of asthma, COPD, etc) 7. DVT proph - heparin 5000 TID. 8. constipation - bowel regimen. 9. HTN - add beta marquise especially in light of diastolic dysfunction. Cont ARB. Hold HCTZ due to concomitant IV lasix use. 10. morbid obesity BMI 44 - noted PT, OT consults appreciated; likely can return to [place] at d/c daughter updated by phone 07/15/16 Continued [facility] stay due to: multiple IV medications needed Discharge planning: other (Kelsy Ramirez)
[2016-07-17] VITALS (9 sets, daily range): BP systolic 151–187; BP diastolic 83–96; PULSE 76–91; TEMP 36.4–36.6; O2SAT 91–96
[2016-07-17] MEDS: HEPARIN SOD 5000 UNIT/0.5 ML CARP SQ SCH ×3 (06:04→22:20)
[2016-07-17] MEDS: BUDESONIDE 0.5 MG/2 ML VIAL (PULMICORT) INH SCH ×2 (07:52→19:17)
[2016-07-17] MEDS: ALBUT/IPRATROP 3MG/0.5MG NEB 3 ML VIAL INH SCH ×4 (07:52→19:17)
[2016-07-17 07:55] LABS: BUN/CREATININE RATIO 39.5 (10-20); CREATININE 0.76 mg/dl (0.60-1.20); MAGNESIUM 2.6 mg/dl (1.8-2.4); POTASSIUM 4.8 mmol/L (3.5-5.1)
[2016-07-17] MEDS: METHYLPREDNISOLONE IV 40 MG in SYRINGE 0 ML IV SCH (08:04)
[2016-07-17] MEDS: DOCUSATE SODIUM 100 MG CAP PO SCH ×2 (08:04→20:07)
[2016-07-17] MEDS: METOPROLOL SUCC 25MG EXT REL TAB PO SCH (08:05)
[2016-07-17] MEDS: GUAIFENESIN 600 MG TABCR PO SCH ×2 (08:05→20:07)
[2016-07-17] MEDS: LOSARTAN POTASSIUM 50 MG TAB PO SCH (08:05)
[2016-07-17] MEDS: POLYETHYLENE (MIRALAX) 17 GM PACK PO SCH (08:05)
[2016-07-17] MEDS: LEVOFLOXACIN 750 MG TAB PO SCH (16:44)
--- NOTE | 2016-07-17 18:32 | Progress Note ---
Subjective Date of Service: Jul 17, 2016. Subjective Pt evaluation today including: conversation w/ patient, physical exam, chart review, lab review appears to be feeling better breathign room air coughing but not really brning much up no f/c/s dtr present, updated her as well Problem List Medical Problems: (1) Bilateral pneumonia Status: Acute Review of Systems ros otherwise negative except for as above Objective Vital Signs Date Time Temp Pulse Resp B/P Pulse Ox O2 Delivery O2 Flow Rate FiO2 07/17/16 16:35 36.4 91 18 187/96 91 Room Air 07/17/16 16:00 96 Room Air 07/17/16 15:36 85 16 96 Room Air 07/17/16 11:30 76 16 95 Room Air 07/17/16 08:00 93 Room Air 07/17/16 07:56 84 16 93 Room Air 07/17/16 07:49 36.6 82 20 151/83 93 Nasal Cannula 2.0 07/17/16 00:00 Room Air 2.0 Nasal Cannula 07/16/16 23:54 36.6 84 20 142/82 93 Room Air 07/16/16 20:00 Room Air 2.0 Nasal Cannula 07/16/16 18:58 82 16 94 Room Air Physical Exam General Appearance: no apparent distress Eyes: EOMI ENT: hearing grossly normal Neck: trachea midline Respiratory/Chest: lungs clear, normal breath sounds (faint rhonchi), no respiratory distress, no accessory muscle use Cardiovascular: regular rate, rhythm 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 acute respiratory distress 2nd to acute/chronic diastolic CHFand CAP - improved 2. community-acquired pneumonia, multi-lobar - day #5 of levaquin; complete 7 day course. 3. acute/chronic diastolic CHF - improved. -continue current meds, ongoing close f/u after discharge 4. 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 hopefully return to [facility] in 1-2 days 5. hypokalemia - resolved. 6. wheezing -appearing to be due to pneumonia -abx, nebs, steroids 7. DVT proph - heparin 5000 TID. 8. constipation - bowel regimen. 9. HTN - added beta marquise especially in light of diastolic dysfunction. Cont ARB. Holding HCTZ due to concomitant IV lasix use. will discharge on low dose of lasix instead 10. morbid obesity BMI 44 - noted PT, OT consults appreciated; likely can return to [facility] at d/c (hoepfully 1- 2 days) Continued [facility] stay due to: multiple IV medications needed Discharge planning: other (Kelsy Ramirez)
[2016-07-18 01:00] VITALS: BP 140/82; PULSE 86; TEMP 36.4; O2SAT 92
[2016-07-18 01:33] VITALS: O2SAT 94
[2016-07-18] MEDS: HEPARIN SOD 5000 UNIT/0.5 ML CARP SQ SCH ×2 (06:15→13:21)
[2016-07-18 06:56] VITALS: BP 143/81; PULSE 72; TEMP 36.5; O2SAT 95
[2016-07-18 07:08] VITALS: PULSE 75; O2SAT 97
[2016-07-18] MEDS: BUDESONIDE 0.5 MG/2 ML VIAL (PULMICORT) INH SCH (07:08)
[2016-07-18] MEDS: ALBUT/IPRATROP 3MG/0.5MG NEB 3 ML VIAL INH SCH ×2 (07:08→11:46)
[2016-07-18] MEDS: POLYETHYLENE (MIRALAX) 17 GM PACK PO SCH (07:32)
[2016-07-18] MEDS: GUAIFENESIN 600 MG TABCR PO SCH (07:33)
[2016-07-18] MEDS: LOSARTAN POTASSIUM 50 MG TAB PO SCH (07:33)
[2016-07-18] MEDS: DOCUSATE SODIUM 100 MG CAP PO SCH (07:33)
[2016-07-18] MEDS: METOPROLOL SUCC 25MG EXT REL TAB PO SCH (07:35)
[2016-07-18] MEDS ORDERED: CZR50 PO (10:18)
[2016-07-18] MEDS ORDERED: PRED10TA PO (10:18)
[2016-07-18] MEDS ORDERED: LVQ750 PO (10:18)
[2016-07-18] MEDS ORDERED: MRLP17 PO (10:18)
[2016-07-18] MEDS ORDERED: FURO-85 PO (10:18)
[2016-07-18] MEDS ORDERED: TPRSR25 PO (10:18)
--- NOTE | 2016-07-18 10:24 | Discharge Instructions ---
Discharge Instructions Date of Service Jul 18, 2016. Admission Reason for Admission: PNA Discharge Discharge Diagnosis / Problem: hypoxia from pneumonia and CHF Discharge Goals Goal(s): Diagnostic testing, Therapeutic intervention Activity Recommendations Activity Limitations: resume your previous activity . Instructions / Follow-Up Instructions / Follow-Up a) pneumonia -finish out a course of antibiotics with one more dose of levaquin tomorrow (to make for 7 days) -finish out the steroids with the prednisone taper as prescribed -resume your inhalers as you previously took them - HOWEVER - expect to use the duonebs four times a day every day for the next several days, then start to slowly back down to just as needed -have a repeat chest xray done in about a month b) congestive heart failure -an old echocardiogram (ultrasound of your heart) showed that your heart is a little stiff - this happens commonly as we age, but can allow for fluid overload to occur when we're sick with other things - it appears most likely that this is the set of circumstances that led to you having a "flare of congestive heart failure" -things are improving - but it appears that you'll probably do better with a little stronger diuretic -- we've switched from your hydrochlorothiazide to lasix (furosemide). this will require follow up, however, because everyone's body is a little different on how much diuretic is required - we'll want your family doc listening to your lungs a good deal in the near future (a follow up appointment in about a week, then a few weeks after that) to make sure your lungs continue to clear, and we'll want to get follow up labwork (BMP) by the end of the week, and then weekly for a few weeks, to make sure you're not getting "too dry," and to follow your potassium level (at a low dose of lasix like we have you on, not everyone needs a potassium supplement, but frequently people will - we'll want the labs followed to tell for sure with you) -follow as well as you can a low sodium diet - try to be less than 2000mg in a day, and less than about 400mg in any given meal. usually sodium will make your kidneys hold on to fluid which can then lead to fluid getting backed up into your lungs. Current Hospital Diet Patient's current hospital diet: AHA Diet (Heart Healthy) Discharge Diet Recommended Diet: Low Sodium Diet (2gm Na) Pending Studies Studies pending at discharge: no Medical Emergencies . Who to Call and When: Medical Emergencies: If at any time you feel your situation is an emergency, please call 911 immediately. . Non-Emergent Contact Non-Emergency issues call your: Primary Care Provider . . "Provider Documentation" section prepared by Jefferson Castro. VTE Core Measure Inpt VTE Proph given/why not?: Unfractionated heparin SQ, [place], SCD 's
[2016-07-18] MEDS: LEVOFLOXACIN 750 MG TAB PO SCH (10:29)
[2016-07-18 10:50] VITALS: BP 143/81; PULSE 75; TEMP 36.5; O2SAT 97
[2016-07-18 11:46] VITALS: PULSE 74; O2SAT 95
--- NOTE | 2016-07-18 18:43 | Discharge Summary ---
Discharge Summary Date of Service Jul 18, 2016. Discharge Summary Admission Date: Jul 13, 2016 at 12:58 Discharge Date: Jul 18, 2016 Discharge Disposition: Personal care Principal Diagnosis: hypoxia/respiratory distress due to CAP and acute diastolic CHF Immunizations: Have You Had Influenza Vaccine: Yes Influenza Vaccine Date: Feb 21, 2013 History of Tetanus Vaccine?: Unknown History of Pneumococcal: Yes History of Hepatitis B Vaccine: Unknown Procedures: CHEST ONE VIEW PORTABLE CLINICAL HISTORY: Sepsis dyspnea COMPARISON STUDY: 08/09/2015 FINDINGS: Moderate stable cardiomegaly. Mild bibasilar infiltrative change. IMPRESSION: Mild bibasilar infiltrative change. Stable cardia megaly. Electronically signed by: Tommy Heart M.D. 07/13/2016 10:24 AM Dictated Date/Time: 07/13/2016 10:22 AM CHEST 2 VIEWS ROUTINE CLINICAL HISTORY: Pneumonia. COMPARISON STUDY: Chest radiograph July 13, 2016. FINDINGS: Lung volumes are normal. There is no pneumothorax or pleural effusion. Moderate cardiomegaly is noted. There is no evidence of pulmonary edema. Bibasilar opacities persist. There is also mild right upper lung interstitial thickening with opacity. IMPRESSION: 1. Persistent bibasilar and right upper lung opacities suggestive of pneumonia. Radiographic follow-up to ensure resolution is recommended. 2. Stable cardiomegaly without evidence of pulmonary edema. Electronically signed by: Marco Ribeiro M.D. 07/14/2016 11:05 AM Dictated Date/Time: 07/14/2016 11:03 AM Last Resulted CBC 07/16/16 07:08 Red Blood Count 4.24, Mean Corpuscular Volume 93.4, Mean Corpuscular Hemoglobin 31.4, Mean Corpuscular Hemoglobin Concent 33.6, Mean Platelet Volume 9.9, Neutrophils (%) (Auto) 73.9, Lymphocytes (%) (Auto) 23.4, Monocytes (%) (Auto) 1.6, Eosinophils (%) (Auto) 0.0, Basophils (%) (Auto) 0.4, Neutrophils # (Auto) 4.18, Lymphocytes # (Auto) 1.32, Monocytes # (Auto) 0.09, Eosinophils # (Auto) 0.00, Basophils # (Auto) 0.02 Last Resulted BMP 07/17/16 06:59 Medication Reconciliation New Medications: Furosemide (Lasix) 20 Mg Tab 20 MG PO DAILY, #30 TAB Prednisone Tab (Prednisone) 10 Mg Tab 10 MG PO UD, #30 TAB 4 po x 2 days then 3 po x 2 days then 2 po x 2 days then 1 po x 2 days then stop Levofloxacin (Levofloxacin) 750 Mg Tab 750 MG PO DAILY@11, #1 TAB Losartan Potassium (Losartan Potassium) 50 Mg Tab 50 MG PO QAM, #30 TAB Metoprolol Succinate (Metoprolol Succinate ER) 25 Mg Tabcr 25 MG PO QAM, #30 TAB Polyethylene (Miralax) 17 Gm Pow 17 GM PO DAILY, #30 DOSE Continued Medications: Acetaminophen Tab (Tylenol) 325 Mg Tab 650 MG PO Q4 PRN for Mild Pain Budesonide (Pulmicort Respules 0.5MG/2ML) 0.5 Mg/2 Ml Nebu 2 ML INH BID Docusate Sodium (Colace) 100 Mg Cap 1 CAP PO BID PRN for Constipation Fluticasone Furoate-Vilanterol (Breo Ellipta 200-25 Mcg/INH) 1 Inh Inh 1 PUFF INH DAILY Ipratropium-Albuterol (Duoneb) 3 Ml Nebu 1 TREATMENT INH Q6 PRN for SOB/Wheezing Oxygen (Oxygen) Gas 2 LITERS NA HS PRN for Shortness of Breath Discontinued Medications: Hctz/Losartan (Hyzaar 12.5MG/50MG) 1 Ea Tab 1 TAB PO DAILY Discharge Exam Physical Exam: General Appearance: no apparent distress Eyes: EOMI ENT: hearing grossly normal Neck: trachea midline Respiratory/Chest: no respiratory distress, no accessory muscle use, + rales (faint scattered rales, probably R > L but difficult to totally tell) Cardiovascular: regular rate, rhythm Extremities: normal inspection Neurologic/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 acute respiratory distress 2nd to acute/chronic diastolic CHFand CAP - improved 2. community-acquired pneumonia, multi-lobar - day #6 of levaquin; complete 7 day course. 3. acute/chronic diastolic CHF - improved. -changed diuretic from HCTZ to lasix, meds otherwise as above. ongoing close follow up (clinically w breathing assessment and lung exams to r/o "wet" and periodic BMP to protect against "dry") 4. 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 stable for return to [facility] 5. hypokalemia - resolved. 6. wheezing -appearing to be due to pneumonia -improving. steroid taper, inhalers as above, finish abx 7. DVT proph - heparin 5000 TID. 8. constipation - bowel regimen. 9. HTN - added beta marquise especially in light of diastolic dysfunction. Cont ARB. Holding HCTZ due to concomitant lasix use. will discharge on low dose of lasix instead 10. morbid obesity BMI 44 - noted PT, OT consults appreciated; can return to [facility] Total Time Spent: Less than 30 minutes This includes examination of the patient, discharge planning, medication reconciliation, and communication with other providers. Discharge Instructions Please refer to the electronic Patient Visit Report (Discharge Instructions) for additional information.
== END 2016-07-18 14:34 | disposition home or self-care (01) | DRG 291 ==
LOC: ENRESERVDT → ENRESERVTM → C.EDB 09:41 → C.MS4W 12:58
PROVIDERS: ADMIT Internal Medicine; ATTEND Family Medicine
DX: I11.0 Hypertensive heart disease with heart failure (principal); J18.9 Pneumonia, unspecified organism; G93.40 Encephalopathy, unspecified; Z68.41 Body mass index [BMI] 40.0-44.9, adult; I50.32 Chronic diastolic (congestive) heart failure; J45.909 Unspecified asthma, uncomplicated; E78.00 Pure hypercholesterolemia, unspecified; G30.9 Alzheimer's disease, unspecified; E87.6 Hypokalemia; E66.01 Morbid (severe) obesity due to excess calories; F02.80 Dementia in other diseases classified elsewhere, unspecified severity, without behavioral disturbance, psychotic disturbance, mood disturbance, and anxiety; K59.00 Constipation, unspecified

== ENCOUNTER → 2016-08-03 | Outpatient (CLI) | payer OTHER, BC ==
[~2016-08-03] MED LIST changes: +ACET325T96 PO; -ASCO250C17 PO; -B-CO-25 PO; -CALC-20 PO; -CLOP1TAB5 PO; +CZR50 PO; +DOCU-94 PO; +DONE1TAB11 PO; -DONE1TAB26 PO; -ENAL5TAB PO; -EZET10TA47 PO; -FINA1TAB36 PO; +FLUT1INH7 INH; +FRS/40 PO; +FURO-85 PO; +IPRASOL4 INH; +LOSA50TA6 PO; +LVQ750 PO; +METO25TA3 PO; +MRLP17 PO; -NIAC750T2 PO; +OXGN; +PLMINSR5 INH; +POLY335019 PO; +PRED10TA PO; -RIVA4.6D TD; -RMNER16 PO; +SERT25TA PO; +TPRSR25 PO; -VITACAP37 PO; -[UNRECOGNIZED DRUG - OTHER] PO
--- NOTE | 2016-08-03 12:23 | DIAGNOSTIC IMAGING REPORT ---
CHEST 2 VIEWS ROUTINE CLINICAL HISTORY: SHORTNESS OF BREATH COMPARISON STUDY: 07/14/2016 FINDINGS: The heart remains mildly enlarged. There is a subtle nodular airspace opacity within the right upper lung zone. Increased interstitial markings are present the left lung base, similar to the prior study. There is been improvement of the right basilar opacities.. The findings are minimally improved when compared the preceding study.[ There are no pleural effusions IMPRESSION: Minimal improvement in the bilateral pulmonary airspace opacities. The findings could represent either a persistent inflammatory/infectious process, or persistent edema. Clinical and radiographic follow-up is recommended Electronically signed by: Shon Peres M.D. 08/03/2016 12:21 PM Dictated Date/Time: 08/03/2016 12:18 PM
[2016-08-03 14:15] LABS: CALCIUM 9.4 mg/dl (8.5-10.1)
[2016-08-03 14:18] LABS: ALT/SGPT 19 U/L (12-78); BLOOD UREA NITROGEN 14 mg/dl (7-18); BUN/CREATININE RATIO 22.5 (10-20); CARBON DIOXIDE 28 mmol/L (21-32); CHLORIDE 103 mmol/L (98-107); CHOLESTEROL 248 mg/dl (0-200); CREATININE 0.64 mg/dl (0.60-1.20); GLUCOSE 94 mg/dl (70-99); POTASSIUM 4.2 mmol/L (3.5-5.1); SODIUM 138 mmol/L (136-145); TRIGLYCERIDES 123 mg/dl (0-150); VERY LOW DENSITY LIPOPROT CALC 25 mg/dl
[2016-08-03 14:22] LABS: ALB/GLOB RATIO 0.9 (0.9-2); ALKALINE PHOSPHATASE 50 U/L (45-117); AST/SGOT 18 U/L (15-37); CHOLESTEROL/HDL RATIO 3.2; HDL CHOLESTEROL 78 mg/dl; LDL CHOLESTEROL CALCULATED 145 mg/dl
== END | disposition home or self-care (01) ==
LOC: C.RADBC 11:37
PROVIDERS: ATTEND Family Medicine
DX: I10 Essential (primary) hypertension (principal); E78.00 Pure hypercholesterolemia, unspecified; F03.90 Unspecified dementia, unspecified severity, without behavioral disturbance, psychotic disturbance, mood disturbance, and anxiety; J43.9 Emphysema, unspecified; R06.02 Shortness of breath

== ENCOUNTER → 2016-08-25 | Outpatient (CLI) | payer OTHER, BC ==
[2016-08-25 09:06] LABS: BLOOD UREA NITROGEN 16 mg/dl (7-18); BUN/CREATININE RATIO 31.4 (10-20); CARBON DIOXIDE 27 mmol/L (21-32); CHLORIDE 104 mmol/L (98-107); GLUCOSE 92 mg/dl (70-99); POTASSIUM 3.8 mmol/L (3.5-5.1); SODIUM 138 mmol/L (136-145)
[2016-08-25 10:05] LABS: CALCIUM 8.6 mg/dl (8.5-10.1)
== END | disposition home or self-care (01) ==
LOC: C.LABOUTLO 08:22
PROVIDERS: ATTEND Family Medicine
DX: R60.9 Edema, unspecified (principal)

== ENCOUNTER → 2016-09-07 | Outpatient (CLI) | payer OTHER, BC ==
--- NOTE | 2016-09-12 16:56 | PULMONARY FUNCTION TEST ---
CLINICAL DATA: An 86-year-old female with a height of 62 inches and a weight of [address] Mike for evaluation of congestive heart failure and dyspnea. Spirometry pre- and post-bronchodilator, lung volumes, and DLCO were performed. FINDINGS: Pre-bronchodilator spirometry demonstrates mild obstructive airways disease. FVC was 65% of predicted. FEV1 was 66% of predicted. [id number] was 44% of predicted. There was significant improvement after inhaled bronchodilator. FVC improved 14% to 74% of predicted. FEV1 improved 14% to 75% of predicted. [id number] improved 34% to 59% of predicted. Lung volumes showed reduction in expiratory reserve volume to 26% of predicted due to her weight. DLCO was mildly reduced at 67% of predicted with a normal DLCO/VA at 132% of predicted. IMPRESSION: Mild obstructive airways disease with improvement after inhaled bronchodilator. Reduction in expiratory reserve volume due to obesity. Mild reduction in diffusion capacity. There was significant improvement after inhaled bronchodilator. MTDD
== END | disposition home or self-care (01) ==
LOC: C.RC 13:19
PROVIDERS: ATTEND Internal Medicine Pulmonary Disease
DX: R06.00 Dyspnea, unspecified (principal)

== ENCOUNTER 2016-09-24 10:29 | Emergency (ER) | payer OTHER, BC ==
[~2016-09-24 10:29] MED LIST changes: -DONE1TAB11 PO; -FRS/40 PO; -LOSA50TA6 PO; -METO25TA3 PO; -POLY335019 PO; -SERT25TA PO
[2016-09-24 10:32] VITALS: TEMP 36.4; Ht 157.5 cm
--- NOTE | 2016-09-24 10:48 | EMERGENCY ROOM VISIT NOTE ---
History Report prepared by Radha: Jane Hansen Under the Supervision of: Dr. Angel Delatorre M.D. First contact with patient: 10:34 Chief Complaint: SHORTNESS OF BREATH Stated Complaint: SOB History of Present Illness The patient is an 86 year old female who presents to the Emergency Room with complaints of persistent shortness of breath for the past several months, but worsened today. The patient's daughter reports that the patient has a history of Alzheimer's and resides at [facility]. She reports that the patient has been short of breath, but notes that it has worsened today. The patient's daughter reports that the patient has had a cough. She states that the patient was evaluated in the hospital for pneumonia in June. The patient's daughter denies any documented fever or chills. She reports an increase in the patient' s swelling to her lower extremities. The patient's daughter states that the patient does take a diuretic at home. Source of History: patient, family (daughter) Onset: past several months Position: other (global) Quality: other (shortness of breath) Timing: worsening, other (persistent) Associated Symptoms: + cough, No fevers, No chills Note: Associated Symptoms: increased swelling to her lower extremities Review of Systems All systems have been listed, reviewed, and are negative other than those previously mentioned. Please see Additional Medical History Sheet. Past Medical & Surgical Medical Problems: (1) Alzheimers disease (2) Asthma (3) CHF (congestive heart failure) (4) Heart disease (5) High cholesterol (6) Hypertension (7) PNA (pneumonia) Surgical Problems: (1) H/O hernia repair Family History Heart disease Hypertension Social History Smoking Status: Never Smoker Alcohol Use: none Drug Use: none Marital Status: Housing Status: [facility] Occupation Status: retired Current/Historical Medications Scheduled Budesonide (Pulmicort Respules 0.5MG/2ML), 2 ML INH BID Donepezil Hydrochloride (Donepezil Hcl), 1 TAB PO HS Fluticasone Furoate-Vilanterol (Breo Ellipta 200-25 Mcg/INH), 1 PUFF INH DAILY Furosemide (Lasix), 40 MG PO DAILY Losartan Potassium (Losartan Potassium), 50 MG PO QAM Metoprolol Succinate (Metoprolol Succinate ER), 25 MG PO QAM Polyethylene (Miralax), 17 GM PO DAILY Sertraline (Zoloft), 25 MG PO DAILY Scheduled PRN Acetaminophen Tab (Tylenol), 650 MG PO Q4 PRN for Mild Pain Docusate Sodium (Colace), 1 CAP PO BID PRN for Constipation Ipratropium-Albuterol (Duoneb), 1 TREATMENT INH Q6 PRN for SOB/Wheezing Allergies Coded Allergies: No Known Allergies (Unverified , 02/19/13) Physical Exam Vital Signs Date Time Temp Pulse Resp B/P (MAP) Pulse Ox O2 Delivery O2 Flow Rate FiO2 09/24/16 13:28 75 20 175/86 95 09/24/16 12:35 73 20 198/84 94 Room Air 09/24/16 11:04 63 09/24/16 11:03 94 Room Air 09/24/16 10:57 94 Room Air 09/24/16 10:32 36.4 67 22 179/80 91 Room Air Physical Exam GENERAL: Patient appears slightly confused, consistent with her history of dementia. Patient does not appear toxic. Patient is adequately hydrated and well-nourished. SKIN: No erythema, pallor, cyanosis or rash HEENT: Normal head, pupils equal, reactive to light and accommodation. Oral cavity and posterior pharynx appear normal. Neck: Without adenopathy, no neck vein distention. LUNGS: Few inspiratory and expiratory wheezes. No rales, no rhonchi. HEART: No murmurs. No gallops. No rubs ABDOMEN: Obese, soft, nontender. EXTREMITIES: 3+ nonpitting pretibial edema, right greater than left. No signs of trauma. No calf or thigh tenderness. NEUROLOGIC: Cranial nerves II-XII within normal limits. No gross motor sensory function deficits. Medical Decision & Procedures ER Provider Diagnostic Interpretation: X ray results are stated below per my interpretation and the radiologist's interpretation. CHEST 2 VIEWS ROUTINE CLINICAL HISTORY: Shortness of breath COMPARISON STUDY: 08/03/2016 FINDINGS: The heart remains enlarged. There is no lobar consolidation. There is mild chronic interstitial thickening. There are no pleural effusions. There is no overt failure.[ IMPRESSION: Cardiomegaly and mild chronic interstitial thickening. No acute findings.. Electronically signed by: Shon Peres M.D. 09/24/2016 11:34 AM Dictated Date/Time: 09/24/2016 11:33 AM Laboratory Results 09/24/16 11:37 Red Blood Count 4.01, Mean Corpuscular Volume 95.5, Mean Corpuscular Hemoglobin 31.4, Mean Corpuscular Hemoglobin Concent 32.9, Mean Platelet Volume 10.0, Neutrophils (%) (Auto) 62.4, Lymphocytes (%) (Auto) 23.7, Monocytes (%) (Auto) 10.5, Eosinophils (%) (Auto) 2.3, Basophils (%) (Auto) 0.6, Neutrophils # (Auto ) 5.12, Lymphocytes # (Auto) 1.94, Monocytes # (Auto) 0.86, Eosinophils # (Auto ) 0.19, Basophils # (Auto) 0.05 09/24/16 11:37 Test 09/24/16 11:37 White Blood Count 8.20 K/uL (4.8-10.8) Red Blood Count 4.01 M/uL (4.2-5.4) Hemoglobin 12.6 g/dL (12.0-16.0) Hematocrit 38.3 % (37-47) Mean Corpuscular Volume 95.5 fL (80-100) Mean Corpuscular Hemoglobin 31.4 pg (25-34) Mean Corpuscular Hemoglobin Concent 32.9 g/dl (32-36) Platelet Count 197 K/uL (130-400) Mean Platelet Volume 10.0 fL (7.4-10.4) Neutrophils (%) (Auto) 62.4 % Lymphocytes (%) (Auto) 23.7 % Monocytes (%) (Auto) 10.5 % Eosinophils (%) (Auto) 2.3 % Basophils (%) (Auto) 0.6 % Neutrophils # (Auto) 5.12 K/uL (1.4-6.5) Lymphocytes # (Auto) 1.94 K/uL (1.2-3.4) Monocytes # (Auto) 0.86 K/uL (0.11-0.59) Eosinophils # (Auto) 0.19 K/uL (0-0.5) Basophils # (Auto) 0.05 K/uL (0-0.2) RDW Standard Deviation 48.5 fL (36.4-46.3) RDW Coefficient of Variation 13.7 % (11.5-14.5) Immature Granulocyte % (Auto) 0.5 % Immature Granulocyte # (Auto) 0.04 K/uL (0.00-0.02) Arterial Blood pH 7.46 (7.35-7.45) Arterial Blood Partial Pressure CO2 39 mmHg (35-46) Arterial Blood Partial Pressure O2 67 mm/Hg (80-95) Arterial Blood HCO3 27 mmol/L (19-24) Arterial Blood Oxygen Saturation 93.8 % (90-95) Arterial Blood Base Excess 3.0 mEq/L (-9-1.8) Arterial Blood Gas Delivery RA Tacho Test POS (POS) Anion Gap 9.0 mmol/L (3-11) Estimated GFR () 101.1 Estimated GFR (Non- 87.2 BUN/Creatinine Ratio 28.0 (10-20) Calcium Level 8.4 mg/dl (8.5-10.1) Total Bilirubin 0.5 mg/dl (0.2-1) Aspartate Amino Transf (AST/SGOT) 16 U/L (15-37) Alanine Aminotransferase (ALT/SGPT) 18 U/L (12-78) Alkaline Phosphatase 48 U/L (45-117) Troponin I < 0.015 ng/ml (0-0.045) Total Protein 6.6 gm/dl (6.4-8.2) Albumin 3.4 gm/dl (3.4-5.0) Globulin 3.2 gm/dl (2.5-4.0) Albumin/Globulin Ratio 1.1 (0.9-2) Laboratory results as stated above per my review. Medications Administered Medications (Trade) Dose Ordered Sig/Bryon Route Start Time Stop Time Status Last Admin Dose Admin Furosemide (Lasix Inj) 40 mg NOW STAT IV 09/24/16 12:24 09/24/16 12:26 DC 09/24/16 12:52 40 MG ECG Indication: SOB/dyspnea Rate (beats per minute): 67 Rhythm: sinus rhythm Findings: PAC, no acute ischemic change, other (normal axis) ED Course 1035: Past medical records reviewed. The patient was evaluated in room C4. A complete history and physical examination was performed. 1224: I reevaluated the patient and she is doing well with a pulse ox of 94% on room air. She had an echocardiogram 2 days ago, we are going to obtain the results for this test. Ordered Lasix Inj 40 mg IV. 1310: I reevaluated the patient and she continues to rest comfortably. I discussed all the exam findings with her and I discussed the treatment plan. She verbalized complete understanding and agreement. She is ready to go home. Medical Decision Nurses notes reviewed. Medical history sheet reviewed. Differential diagnosis includes but is not limited to: congestive heart failure, pneumonia, metabolic disorder, arrhythmia. Medication Reconciliation: I attest that I have personally reviewed the patient' s current medication list. 86-year-old female was some reported shortness of breath by daughter. Patient denies any complaints but she does have dementia. Multiple labs, EKG and imaging were obtained. Patient appears to have mild failure on x-ray and clinically. The patient was given IV Lasix. The patient does not appear to have pneumonia or active infection. She is not anemic. I believe that she can safely return home. The patient will require follow-up by her family physician/ crop and soil technician to determine whether she needs higher doses of diuretics. Blood Pressure Screening: Patient was found to have an elevated blood pressure and was referred to their primary doctor for recheck and further treatment. Impression Primary Impression: Congestive heart failure Scribe Attestation The scribe's documentation has been prepared under my direction and personally reviewed by me in its entirety. I confirm that the note above accurately reflects all work, treatment, procedures, and medical decision making performed by me. Departure Information Dispostion Home / Self-Care Referrals [facility] (PCP) Christina Lemos, DO Forms HOME CARE DOCUMENTATION FORM, IMPORTANT VISIT INFORMATION Patient Instructions My [facility] Additional Instructions Continue all of your current medications as prescribed. Follow-up with your family physician or crop and soil technician within the next 7-10 days.
[2016-09-24 10:57] VITALS: O2SAT 94
[2016-09-24] MEDS ORDERED: SERT25TA PO (11:03)
[2016-09-24] MEDS ORDERED: DONE1TAB11 PO (11:03)
[2016-09-24] MEDS ORDERED: FRS/40 PO (11:03)
--- NOTE | 2016-09-24 11:35 | DIAGNOSTIC IMAGING REPORT ---
CHEST 2 VIEWS ROUTINE CLINICAL HISTORY: Shortness of breath COMPARISON STUDY: 08/03/2016 FINDINGS: The heart remains enlarged. There is no lobar consolidation. There is mild chronic interstitial thickening. There are no pleural effusions. There is no overt failure.[ IMPRESSION: Cardiomegaly and mild chronic interstitial thickening. No acute findings.. Electronically signed by: Shon Peres M.D. 09/24/2016 11:34 AM Dictated Date/Time: 09/24/2016 11:33 AM
[2016-09-24 11:58] LABS: ARTERIAL BLD GAS O2 SATURATION 93.8 % (90-95); ARTERIAL BLOOD GAS HCO3 27 mmol/L (19-24); ARTERIAL BLOOD GAS PO2 67 mm/Hg (80-95); ARTERIAL BLOOD GAS pH 7.46 (7.35-7.45)
[2016-09-24 12:01] LABS: ALLEN TEST POS (POS); O2 ADMINISTRATION RA
[2016-09-24 12:06] LABS: BASO % 0.6 %; BASO ABS # 0.05 K/uL (0-0.2); COMPLETE YES; EOS % 2.3 %; HEMATOCRIT 38.3 % (37-47); IG% 0.5 %; LYMPH % 23.7 %; LYMPH ABS # 1.94 K/uL (1.2-3.4); MEAN CELL VOLUME 95.5 fL (80-100); MEAN CORPUSCULAR HEMOGLOBIN 31.4 pg (25-34); MEAN CORPUSCULAR HGB CONC 32.9 g/dl (32-36); MONO % 10.5 %; NEUT % 62.4 %; PLATELET COUNT 197 K/uL (130-400); RED BLOOD COUNT 4.01 M/uL (4.2-5.4)
[2016-09-24 12:21] LABS: ALT/SGPT 18 U/L (12-78); AST/SGOT 16 U/L (15-37); BLOOD UREA NITROGEN 15 mg/dl (7-18); CALCIUM 8.4 mg/dl (8.5-10.1); CARBON DIOXIDE 27 mmol/L (21-32); CHLORIDE 100 mmol/L (98-107); CREATININE 0.53 mg/dl (0.60-1.20); GLUCOSE 87 mg/dl (70-99); POTASSIUM 4.1 mmol/L (3.5-5.1); SODIUM 136 mmol/L (136-145)
[2016-09-24] MEDS ORDERED: FUROSEMIDE 40 MG/4 ML VIAL IV STA (12:24)
[2016-09-24 12:26] LABS: ALB/GLOB RATIO 1.1 (0.9-2); ALKALINE PHOSPHATASE 48 U/L (45-117)
[2016-09-24 13:28] VITALS: BP 175/86; PULSE 75; O2SAT 95
== END 2016-09-24 13:36 | disposition home or self-care (01) ==
LOC: C.EDB 10:32 → C.EDC 13:36
DX: I50.9 Heart failure, unspecified (principal); G30.9 Alzheimer's disease, unspecified; F02.80 Dementia in other diseases classified elsewhere, unspecified severity, without behavioral disturbance, psychotic disturbance, mood disturbance, and anxiety; J45.909 Unspecified asthma, uncomplicated; I51.9 Heart disease, unspecified; E78.00 Pure hypercholesterolemia, unspecified; I10 Essential (primary) hypertension; Z87.01 Personal history of pneumonia (recurrent); Z82.49 Family history of ischemic heart disease and other diseases of the circulatory system; Z79.899 Other long term (current) drug therapy

== ENCOUNTER → 2016-10-09 | Outpatient (CLI) | payer OTHER, BC ==
[~2016-10-09] MED LIST changes: +DONE1TAB11 PO; +FRS/40 PO; -FURO-85 PO; +LOSA50TA6 PO; -LVQ750 PO; +METO25TA3 PO; -OXGN; +POLY335019 PO; -PRED10TA PO; +SERT25TA PO
[2016-10-09 11:03] LABS: BLOOD UREA NITROGEN 20 mg/dl (7-18); CALCIUM 8.9 mg/dl (8.5-10.1); CARBON DIOXIDE 28 mmol/L (21-32); CHLORIDE 103 mmol/L (98-107); CREATININE 0.75 mg/dl (0.60-1.20); GLUCOSE 88 mg/dl (70-99); SODIUM 138 mmol/L (136-145)
--- NOTE | 2016-10-11 13:17 | CODING QUERY NO DIAGNOSIS ---
TREATMENT RENDERED WITHOUT A DIAGNOSIS To promote full compliance with coding requirements relating to patient care, physician participation is requested in all cases of vest front presser uncertainty. Please assist us with providing a diagnosis/symptom for the test(s) below: A diagnosis/symptom was not documented on your Order. A valid diagnosis/symptom is required to bill all insurances. Please remember that we are unable to code a diagnosis of rule out, probable, possible, questionable, or suspected. Tests that require a diagnosis: DOS 10/09 * PRP DIAGNOSIS: Provider Signature: Date: Thank you Marely Stover Health Information Management Once completed, please kindly fax back to [phone] For questions please call [phone]
== END | disposition home or self-care (01) ==
LOC: C.LABOUTLO 07:55
PROVIDERS: ATTEND Physician Assistant
DX: Z01.89 Encounter for other specified special examinations (principal)

== ENCOUNTER → 2016-10-26 | Outpatient (CLI) | payer OTHER, BC ==
--- NOTE | 2016-10-26 15:23 | MAMMOGRAPHY REPORT ---
BILATERAL DIGITAL SCREENING MAMMOGRAM WITH CAD: 10/26/2016 CLINICAL HISTORY: Routine screening. Patient has no complaints. TECHNIQUE: Current study was also evaluated with a Computer Aided Detection (CAD) system. Bilateral CC and MLO views were obtained. COMPARISON: Comparison is made to exams dated: 03/17/2015 mammogram, 08/25/2014 mammogram, 08/12/2014 m ammogram, and 07/23/2014 mammogram - [facility]. BREAST COMPOSITION: There are scattered areas of fibroglandular density in both breasts. FINDINGS: No suspicious masses, calcifications, or areas of architectural distortion are noted in ei ther breast. There has been no significant interval change compared to prior exams. Scattered bilate ral benign-appearing calcifications are not significantly changed. A biopsy marker clip is noted in the right breast. IMPRESSION: ACR BI-RADS CATEGORY 2: BENIGN There is no mammographic evidence of malignancy. A 1 year screening mammogram is recommended. The pa tient will receive written notification of the results. Approximately 10% of breast cancers are not detected with mammography. A negative mammographic report should not delay biopsy if a clinically suggestive mass is present. Quita Flores M.D. /:10/26/2016 14:47:55 Master Hearth Technician: Kate ZAPATA(Dieudonne)(Nereida)(BD), [facility] letter sent: Normal 1/2 BI-RADS Code: ACR BI-RADS Category 2: Benign
== END | disposition home or self-care (01) ==
LOC: C.MAMM 13:30
PROVIDERS: ATTEND Family Medicine
DX: Z12.31 Encounter for screening mammogram for malignant neoplasm of breast (principal)

== ENCOUNTER 2017-01-16 07:09 | Emergency (ER) | payer OTHER, BC ==
[~2017-01-16] VITALS: Ht 162.6 cm; Wt 118.1 kg
[~2017-01-16 07:09] MED LIST changes: -LOSA50TA6 PO; -METO25TA3 PO; -POLY335019 PO
[2017-01-16 07:19] VITALS: Ht 162.6 cm; Wt 118.1 kg
[2017-01-16] MEDS ORDERED: FLUT1INH7 INH (07:26)
[2017-01-16] MEDS ORDERED: POLY335019 PO (07:29)
[2017-01-16] MEDS ORDERED: LOSA50TA6 PO (07:29)
[2017-01-16] MEDS ORDERED: METO25TA3 PO (07:29)
[2017-01-16] MEDS ORDERED: FENTANYL CITRATE INJ 50 MCG/1 ML 2 ML VIAL IV STA (07:38)
--- NOTE | 2017-01-16 08:03 | EMERGENCY ROOM VISIT NOTE ---
History First contact with patient: 07:29 Chief Complaint: FALL Stated Complaint: FALL History of Present Illness The patient is a 86 year old female who presents to the Emergency Room with complaints of right facial swelling/bruising and right shoulder pain after a fall this morning at 6 AM. Patient was being assisted to get out of the shower when she slipped, falling onto her right side. Patient struck her right forehead and her right shoulder, she denies any other injuries. She denies loss of consciousness. Her daughter is here with her, who states she has mild dementia at baseline, but states she has been acting her normal self. She did not have any medication after the fall including her a.m. medications. She denies any headache, vision changes, neck pain, back pain, chest pain, shortness of breath, abdominal pain, nausea or vomiting, dysuria or hematuria. Review of Systems A complete 10 point review of systems was reviewed with the patient with pertinent positives and negatives as per history of present illness. All else were negative. Past Medical/Surgical History Medical Problems: (1) Alzheimers disease (2) Asthma (3) CHF (congestive heart failure) (4) Heart disease (5) High cholesterol (6) Hypertension (7) PNA (pneumonia) Surgical Problems: (1) H/O hernia repair Family History Heart disease Hypertension Social History Smoking Status: Never Smoker Alcohol Use: none Drug Use: none Marital Status: Housing Status: senior living Occupation Status: retired Current/Historical Medications Scheduled Budesonide (Pulmicort Respules 0.5MG/2ML), 2 ML INH BID Donepezil Hydrochloride (Donepezil Hcl), 5 MG PO HS Fluticasone Furoate-Vilanterol (Breo Ellipta 200-25 Mcg/INH), 1 PUFF INH DAILY Furosemide (Lasix), 40 MG PO BID Losartan Potassium (Cozaar), 50 MG PO QAM Metoprolol Succinate (Toprol Xl), 25 MG PO QAM Polyethylene Glycol 3350 (Miralax), 17 GM PO QAM Sertraline (Zoloft), 25 MG PO DAILY Scheduled PRN Acetaminophen Tab (Tylenol), 650 MG PO Q4 PRN for Mild Pain Docusate Sodium (Colace), 100 MG PO BID PRN for Constipation Ipratropium-Albuterol (Duoneb), 1 TREATMENT INH Q6 PRN for SOB/Wheezing Physical Exam Vital Signs Date Time Temp Pulse Resp B/P (MAP) Pulse Ox O2 Delivery O2 Flow Rate FiO2 01/16/17 10:58 64 18 144/77 96 Room Air 01/16/17 09:45 63 20 97 01/16/17 09:15 67 20 96 01/16/17 09:11 63 18 182/75 97 Room Air 01/16/17 09:09 Nasal Cannula 2.0 01/16/17 08:01 66 01/16/17 07:19 65 18 154/94 96 Room Air Physical Exam CONSTITUTIONAL: No acute distress. Well appearing and well nourished. Alert and oriented X 4 with pleasant affect. HEENT: Normocephalic. Moderate swelling and ecchymosis of the right forehead and periorbital area, mildly tender to palpation, no crepitus. There is also mild subconjunctival hemorrhage to the right sclera noted. Pupils equal, round and reactive to light, EOMI. TMs normal, no hemotympanum. Pharynx normal. NECK: Supple, full active range of motion without discomfort. No midline tenderness. RESPIRATORY: Clear to auscultation bilaterally with no wheezing, crackles, rhonchi or stridor. Equal expansion bilaterally. CARDIOVASCULAR: Regular rate and rhythm with no murmurs, rubs or gallops. Normal peripheral perfusion. No edema. GASTROINTESTINAL: Soft, nontender, nondistended, obese. Bowel sounds present in all quadrants. MUSCULOSKELETAL: Tenderness to the right upper arm, no abrasion, ecchymosis, or swelling noted. Decreased range of motion of the shoulder due to pain. Full range of motion of all other joints without discomfort. INTEGUMENTARY: No rash or other significant dermatologic conditions noted. NEUROLOGIC: Cranial nerves II-XII grossly intact. No focal neurologic deficits noted. Normal strength, normal sensation, normal speech. No pronator drift, no facial droop. Normal gait and balance. Medical Decision & Procedures ER Provider Diagnostic Interpretation: HEAD WITHOUT CONTRAST (CT) CLINICAL HISTORY: 86 years-old Female presenting with EVALUATE FOR TRAUMA/INJURY, fall, right-sided pain, swelling of the right orbit, history of dementia. TECHNIQUE: Multidetector CT imaging of the head was performed without the use of intravenous contrast. IV contrast: None. A dose lowering technique was used consistent with the principles of ALARA (as low as reasonably achievable). COMPARISON: 02/19/2013. CT DOSE (mGy.cm): The estimated cumulative dose is 1038.[address] cervical spine. FINDINGS: Care Coordinator topogram: Unremarkable. Proportional ventricular and sulcal prominence, likely age-related parenchymal volume loss. Periventricular and subcortical white matter hypoattenuation, nonspecific but likely indicative of chronic small vessel ischemic change. No mass effect or midline shift. No hemorrhage or acute territorial infarct. No extra-axial fluid collection. Paranasal sinuses and mastoid air cells clear. Calvarium intact. Right periorbital infiltration of the subcutaneous tissue with swelling. IMPRESSION: 1. No acute intracranial pathology. 2. Right periorbital subcutaneous contusion. ----- CERVICAL SPINE CT CT DOSE: 1038.81 mGy.cm HISTORY: EVALUATE FOR TRAUMA/INJURY TECHNIQUE: Multiaxial CT images of the cervical spine were performed and reformatted in the sagittal and coronal plane without the use of contrast. A dose lowering technique was utilized adhering to the principles of ALARA. COMPARISON: None. FINDINGS: There is 2 mm of anterolisthesis of C4 on C5 and C5 on C6. Mild to moderate disc space narrowing at C5-C6 and C6-C7. Prevertebral soft tissues and the C1-C2 interval are intact. No fractures identified within the cervical spine. Fusion of the bilateral C2-C3 facets. Moderate facet degenerative changes throughout the majority of the cervical spine. Mild interlobular septal thickening within the lung apices. IMPRESSION: No fractures within the cervical spine. Mild interlobular septal thickening within the lung apices. This could represent mild pulmonary edema or chronic change. ----- CHEST ONE VIEW PORTABLE CLINICAL HISTORY: 86 years-old Female presenting with EVALUATE FOR TRAUMA/INJURY. TECHNIQUE: Portable upright AP view of the chest was obtained. COMPARISON: 09/24/2016. FINDINGS: Atherosclerosis of aortic arch. Mild tortuosity of the descending thoracic aorta. Cardiac silhouette remains enlarged. Lungs and pleural spaces clear. Chronic deformity of the left humeral neck. Upper abdomen normal. IMPRESSION: 1. Cardiomegaly. No other evidence of acute cardiopulmonary disease. ----- R SHOULDER MIN 2 VIEWS ROUTINE, R HUMERUS MIN 2 VIEWS ROUTINE, R ELBOW MIN 3 VIEWS ROUTINE CLINICAL HISTORY: fall onto right side, right upper arm pain, eval fx COMPARISON STUDY: None. FINDINGS: No fracture or dislocation. Soft tissues are unremarkable. No radiopaque foreign bodies. No significant elbow effusion. IMPRESSION: No acute fracture or dislocation within the right shoulder, right humerus, or right elbow. Laboratory Results 01/16/17 10:11 Red Blood Count 3.98, Mean Corpuscular Volume 95.0, Mean Corpuscular Hemoglobin 31.2, Mean Corpuscular Hemoglobin Concent 32.8, Mean Platelet Volume 10.4, Neutrophils (%) (Auto) 67.0, Lymphocytes (%) (Auto) 21.3, Monocytes (%) (Auto) 9.0, Eosinophils (%) (Auto) 1.7, Basophils (%) (Auto) 0.5, Neutrophils # (Auto) 5.61, Lymphocytes # (Auto) 1.78, Monocytes # (Auto) 0.75, Eosinophils # (Auto) 0.14, Basophils # (Auto) 0.04 01/16/17 10:11 Test 01/16/17 00:00 01/16/17 08:03 01/16/17 10:11 Urine Color DK YELLOW Urine Appearance CLEAR (CLEAR) Urine pH 6.5 (4.5-7.5) Urine Specific [place] 1.023 (1.000-1.030) Urine Protein NEG (NEG) Urine Glucose (UA) NEG (NEG) Urine Ketones NEG (NEG) Urine Occult Blood NEG (NEG) Urine Nitrite NEG (NEG) Urine Bilirubin NEG (NEG) Urine Urobilinogen NEG (NEG) Urine Leukocyte Esterase NEG (NEG) Bedside Glucose 92 mg/dl (70-90) White Blood Count 8.36 K/uL (4.8-10.8) Red Blood Count 3.98 M/uL (4.2-5.4) Hemoglobin 12.4 g/dL (12.0-16.0) Hematocrit 37.8 % (37-47) Mean Corpuscular Volume 95.0 fL (80-100) Mean Corpuscular Hemoglobin 31.2 pg (25-34) Mean Corpuscular Hemoglobin Concent 32.8 g/dl (32-36) Platelet Count 169 K/uL (130-400) Mean Platelet Volume 10.4 fL (7.4-10.4) Neutrophils (%) (Auto) 67.0 % Lymphocytes (%) (Auto) 21.3 % Monocytes (%) (Auto) 9.0 % Eosinophils (%) (Auto) 1.7 % Basophils (%) (Auto) 0.5 % Neutrophils # (Auto) 5.61 K/uL (1.4-6.5) Lymphocytes # (Auto) 1.78 K/uL (1.2-3.4) Monocytes # (Auto) 0.75 K/uL (0.11-0.59) Eosinophils # (Auto) 0.14 K/uL (0-0.5) Basophils # (Auto) 0.04 K/uL (0-0.2) RDW Standard Deviation 51.7 fL (36.4-46.3) RDW Coefficient of Variation 14.9 % (11.5-14.5) Immature Granulocyte % (Auto) 0.5 % Immature Granulocyte # (Auto) 0.04 K/uL (0.00-0.02) Anion Gap 7.0 mmol/L (3-11) Est Creatinine Clear Calc Drug Dose 77.9 ml/min Estimated GFR () 93.1 Estimated GFR (Non- 80.3 BUN/Creatinine Ratio 21.5 (10-20) Calcium Level 9.0 mg/dl (8.5-10.1) Medications Administered Medications (Trade) Dose Ordered Sig/Bryon Route Start Time Stop Time Status Last Admin Dose Admin Fentanyl Citrate (Fentanyl Inj) 25 mcg NOW STAT IV 01/16/17 07:38 01/16/17 07:45 DC 01/16/17 07:38 25 MCG ECG Indication: other (fall) Rate (beats per minute): 64 Rhythm: normal sinus Findings: no acute ischemic change, no ectopy Change: no significant change (09/24/2016) Medical Decision CC: Patient presenting with complaint of fall Interpretation of Labs: No leukocytosis, no anemia, no significant electrolyte abnormalities, normal renal function, normal liver enzymes, UA negative. Differential Diagnosis: Includes, but not limited to facial contusion, abrasion , hematoma, skull fracture, orbital fracture, intracranial hemorrhage, other traumatic injury. Medication Reconciliation: I attest that I have personally reviewed the patient' s current medication list. Vital signs review: I reviewed the patient's vital signs and interpret them as follows: T: Afebrile; BP: Hypertensive; HR: Within normal limits; RR: Within normal limits; Pulse Ox: Within normal limits on room air. Blood pressure screening: The patient was found to have an elevated blood pressure and was referred to their primary doctor for recheck and further treatment. Summary: Patient was evaluated at bedside, history of physical exam performed. Patient is alert and in no acute distress, mental status at baseline per patient 's daughter, she is resting comfortably in the stretcher. Neurologic exam is completely intact with no focal deficits. Right facial contusion about the eye and right shoulder/upper arm tenderness with no obvious deformity. Orders were placed at bedside for labs, UA, EKG, CT imaging and x-rays to evaluate for traumatic injuries. Patient discussed with Dr. Bach, who agrees with my assessment and plan. Labs reviewed as above, no acute abnormalities. EKG shows NSR. Imaging reviewed, no acute injuries noted. Patient reassessed multiple times throughout ED stay, patient reports improved pain after small dose of fentanyl, she declines any more pain medication. She has been up at the bedside and ambulating with nursing staff, who reports she has a good balance and gait. I discussed all results with patient and her daughter and plan for discharge, daughter is comfortable with this plan. Patient is to follow closely with her PCP, and was given return precautions should her symptoms worsen, her daughter verbalized understanding. Patient discharged home in stable condition and ambulatory. Impression Primary Impression: Facial contusion Additional Impressions: Contusion of right shoulder Fall Departure Information Dispostion Home / Self-Care Condition GOOD Referrals [facility] (PCP) Patient Instructions ED Contusion Face, Falls Prevent Home, [facility] Additional Instructions You have been evaluated in the emergency department after fall. Lab results and imaging studies today are negative for any serious problems or injuries that would require hospital admission or surgery at this time. You may take Tylenol one extra strength tablet every 4-6 hours as needed for pain. Apply ice to the swollen area around her eye in your right shoulder to help reduce pain and swelling. Use caution when getting in and out of the shower to avoid future falls. Follow-up with your PCP in the next 2-3 days for recheck. Please return to the emergency department for any worsening symptoms including severe headache, severe dizziness or passing out, persistent nausea or vomiting , confusion or changes in mental status, or any other concerns. Problem Qualifiers Primary Impression: Facial contusion Encounter type: initial encounter Qualified Codes: S00.83XA - Contusion of other part of head, initial encounter Additional Impressions: Contusion of right shoulder Encounter type: initial encounter Qualified Codes: S40.011A - Contusion of right shoulder, initial encounter Fall Encounter type: initial encounter Qualified Codes: W19.XXXA - Unspecified fall, initial encounter
--- NOTE | 2017-01-16 08:42 | DIAGNOSTIC IMAGING REPORT ---
CHEST ONE VIEW PORTABLE CLINICAL HISTORY: 86 years-old Female presenting with EVALUATE FOR TRAUMA/INJURY. TECHNIQUE: Portable upright AP view of the chest was obtained. COMPARISON: 09/24/2016. FINDINGS: Atherosclerosis of aortic arch. Mild tortuosity of the descending thoracic aorta. Cardiac silhouette remains enlarged. Lungs and pleural spaces clear. Chronic deformity of the left humeral neck. Upper abdomen normal. IMPRESSION: 1. Cardiomegaly. No other evidence of acute cardiopulmonary disease. Electronically signed by: Eugene Peralta M.D. 01/16/2017 8:41 AM Dictated Date/Time: 01/16/2017 8:40 AM
--- NOTE | 2017-01-16 08:56 | DIAGNOSTIC IMAGING REPORT ---
HEAD WITHOUT CONTRAST (CT) CLINICAL HISTORY: 86 years-old Female presenting with EVALUATE FOR TRAUMA/INJURY, fall, right-sided pain, swelling of the right orbit, history of dementia. TECHNIQUE: Multidetector CT imaging of the head was performed without the use of intravenous contrast. IV contrast: None. A dose lowering technique was used consistent with the principles of ALARA (as low as reasonably achievable). COMPARISON: 02/19/2013. CT DOSE (mGy.cm): The estimated cumulative dose is 1038.[address] cervical spine. FINDINGS: Bar Useful Or Busser topogram: Unremarkable. Proportional ventricular and sulcal prominence, likely age-related parenchymal volume loss. Periventricular and subcortical white matter hypoattenuation, nonspecific but likely indicative of chronic small vessel ischemic change. No mass effect or midline shift. No hemorrhage or acute territorial infarct. No extra-axial fluid collection. Paranasal sinuses and mastoid air cells clear. Calvarium intact. Right periorbital infiltration of the subcutaneous tissue with swelling. IMPRESSION: 1. No acute intracranial pathology. 2. Right periorbital subcutaneous contusion. Electronically signed by: Eugene Peralta M.D. 01/16/2017 8:54 AM Dictated Date/Time: 01/16/2017 8:52 AM
--- NOTE | 2017-01-16 09:10 | DIAGNOSTIC IMAGING REPORT ---
CERVICAL SPINE CT CT DOSE: 1038.81 mGy.cm HISTORY: EVALUATE FOR TRAUMA/INJURY TECHNIQUE: Multiaxial CT images of the cervical spine were performed and reformatted in the sagittal and coronal plane without the use of contrast. A dose lowering technique was utilized adhering to the principles of ALARA. COMPARISON: None. FINDINGS: There is 2 mm of anterolisthesis of C4 on C5 and C5 on C6. Mild to moderate disc space narrowing at C5-C6 and C6-C7. Prevertebral soft tissues and the C1-C2 interval are intact. No fractures identified within the cervical spine. Fusion of the bilateral C2-C3 facets. Moderate facet degenerative changes throughout the majority of the cervical spine. Mild interlobular septal thickening within the lung apices. IMPRESSION: No fractures within the cervical spine. Mild interlobular septal thickening within the lung apices. This could represent mild pulmonary edema or chronic change. Electronically signed by: Jordon Espinal M.D. 01/16/2017 9:08 AM Dictated Date/Time: 01/16/2017 9:02 AM
--- NOTE | 2017-01-16 09:21 | DIAGNOSTIC IMAGING REPORT ---
R SHOULDER MIN 2 VIEWS ROUTINE, R HUMERUS MIN 2 VIEWS ROUTINE, R ELBOW MIN 3 VIEWS ROUTINE CLINICAL HISTORY: fall onto right side, right upper arm pain, eval fx COMPARISON STUDY: None. FINDINGS: No fracture or dislocation. Soft tissues are unremarkable. No radiopaque foreign bodies. No significant elbow effusion. IMPRESSION: No acute fracture or dislocation within the right shoulder, right humerus, or right elbow. Electronically signed by: Jordon Espinal M.D. 01/16/2017 9:19 AM Dictated Date/Time: 01/16/2017 9:15 AM
[2017-01-16 09:40] LABS: URINE APPEARANCE CLEAR (CLEAR); URINE BILIRUBIN NEG (NEG); URINE COLOR DK YELLOW; URINE NITRITE NEG (NEG); URINE PH 6.5 (4.5-7.5); URINE SPECIFIC GRAVITY 1.023 (1.000-1.030); UROBILINOGEN NEG (NEG)
[2017-01-16 09:49] LABS: MANUAL MICROSCOPIC REQUIRED? NO; REVIEW REQ? NO
[2017-01-16 10:26] LABS: BASO % 0.5 %; BASO ABS # 0.04 K/uL (0-0.2); COMPLETE YES; EOS % 1.7 %; HEMATOCRIT 37.8 % (37-47); IG% 0.5 %; LYMPH % 21.3 %; LYMPH ABS # 1.78 K/uL (1.2-3.4); MEAN CORPUSCULAR HEMOGLOBIN 31.2 pg (25-34); MEAN CORPUSCULAR HGB CONC 32.8 g/dl (32-36); MEAN PLATELET VOLUME 10.4 fL (7.4-10.4); PLATELET COUNT 169 K/uL (130-400); RED BLOOD COUNT 3.98 M/uL (4.2-5.4); WHITE BLOOD COUNT 8.36 K/uL (4.8-10.8)
[2017-01-16 10:43] LABS: BUN/CREATININE RATIO 21.5 (10-20); CREATININE 0.68 mg/dl (0.60-1.20); POTASSIUM 3.7 mmol/L (3.5-5.1)
[2017-01-16 10:58] VITALS: BP 144/77; PULSE 64; O2SAT 96
--- NOTE | 2017-01-16 11:13 | EMERGENCY ROOM VISIT NOTE ---
ED Visit Note First contact with patient: 07:29 Patient was seen by our PA/SERVER DEVELOPER. I was involved in the patient's care and did evaluate the patient myself. I was involved in the care throughout the ER stay. The patient presents for evaluation after a fall. Imaging and laboratory testing is basically unrevealing. She appears to have suffered some contusions from the fall. If she is able to ambulate in the ED, she can be discharged.
== END 2017-01-16 11:44 | disposition home or self-care (01) ==
LOC: EDBD 07:09 → C.EDA 07:10
DX: S00.83XA Contusion of other part of head, initial encounter (principal); W01.198A Fall on same level from slipping, tripping and stumbling with subsequent striking against other object, initial encounter; Y92.091 Bathroom in other non-institutional residence as the place of occurrence of the external cause; G30.9 Alzheimer's disease, unspecified; F02.80 Dementia in other diseases classified elsewhere, unspecified severity, without behavioral disturbance, psychotic disturbance, mood disturbance, and anxiety; J45.909 Unspecified asthma, uncomplicated; I51.9 Heart disease, unspecified; I10 Essential (primary) hypertension; Z79.899 Other long term (current) drug therapy

== ENCOUNTER 2017-05-28 19:37 | Inpatient (IN) | payer OTHER, BC ==
[~2017-05-28] VITALS: Ht 157.5 cm; Wt 118.2 kg
[~2017-05-28 19:37] MED LIST changes: +ACET-1693 PO; -ACET325T96 PO; -CZR50 PO; -DONE1TAB11 PO; +DONE5TAB26 PO; +LOSA50TA6 PO; +METO25TA4 PO; -MRLP17 PO; +POLY335019 PO; -TPRSR25 PO
[2017-05-28] MEDS ORDERED: ALBUTEROL 0.083% NEBU SOLN 3 ML VIAL INH STA (19:55)
--- NOTE | 2017-05-28 20:20 | DIAGNOSTIC IMAGING REPORT ---
CHEST ONE VIEW PORTABLE HISTORY: 87 years-old Female fever acute fever COMPARISON: Chest radiograph 01/16/2017 TECHNIQUE: Portable AP view of the chest FINDINGS: Cardiac silhouette is mildly enlarged. There is mild pulmonary vascular congestion without overt pulmonary edema. Atherosclerosis of the aorta. Patchy subsegmental left basilar opacities are again seen. No lobar airspace consolidation. Bones of the chest appear grossly intact. Remote healed fracture deformity of the left proximal humerus. IMPRESSION: 1. Cardiomegaly and mild pulmonary vascular congestion. 2. Unchanged patchy subsegmental left basilar opacities suggest atelectasis or scarring. The above report was generated using voice recognition software. It may contain grammatical, syntax or spelling errors. Electronically signed by: Kris Hahn M.D. 05/28/2017 8:18 PM Dictated Date/Time: 05/28/2017 8:17 PM
[2017-05-28 20:29] LABS: INFLUENZA B ANTIGEN Neg for Influ B (NEG)
[2017-05-28] MEDS ORDERED: LEVAQUIN 750MG / 150ML D5W IV STA (20:58)
[2017-05-28] MEDS ORDERED: METHYLPREDNISOLONE 125 MG VIAL IV STA (21:09)
[2017-05-28 21:24] LABS: ALBUMIN 3.3 gm/dl (3.4-5.0); BLOOD UREA NITROGEN 25 mg/dl (7-18); CALCIUM 8.5 mg/dl (8.5-10.1); CARBON DIOXIDE 24 mmol/L (21-32); GLUCOSE 149 mg/dl (70-99); POTASSIUM 3.4 mmol/L (3.5-5.1); SODIUM 132 mmol/L (136-145)
[2017-05-28 21:26] LABS: ALT/SGPT 18 U/L (12-78); AST/SGOT 22 U/L (15-37); CREATININE 0.98 mg/dl (0.60-1.20)
[2017-05-28 21:35] LABS: ALKALINE PHOSPHATASE 56 U/L (45-117); CKMB 0.8 ng/ml (0.5-3.6); TOTAL PROTEIN 7.2 gm/dl (6.4-8.2)
[2017-05-28 21:40] LABS: ISTAT CREATININE 0.8 mg/dl (0.6-1.3); ISTAT IONIZED CALCIUM 1.11 mmol/l (1.12-1.32); ISTAT POTASSIUM 3.7 mEq/L (3.3-5.0)
[2017-05-28] MEDS ORDERED: POLYETHYLENE (MIRALAX) 17 GM PACK PO PRN ×2 (22:00→22:45)
[2017-05-28] MEDS ORDERED: DOCUSATE SODIUM 100 MG CAP PO PRN (22:00)
[2017-05-28] MEDS ORDERED: FUROSEMIDE 40 MG/4 ML VIAL IV STA (22:02)
[2017-05-28 22:05] LABS: BASO % 0.6 %; BASO ABS # 0.05 K/uL (0-0.2); EOS % 0.3 %; EOS ABS # 0.03 K/uL (0-0.5); HEMATOCRIT 38.5 % (37-47); HEMOGLOBIN 12.9 g/dL (12.0-16.0); IG# 0.06 K/uL (0.00-0.02); LYMPH % 21.1 %; LYMPH ABS # 1.83 K/uL (1.2-3.4); MEAN CELL VOLUME 95.1 fL (80-100); MEAN CORPUSCULAR HEMOGLOBIN 31.9 pg (25-34); MEAN CORPUSCULAR HGB CONC 33.5 g/dl (32-36); MEAN PLATELET VOLUME 10.2 fL (7.4-10.4); MONO % 12.8 %; MONO ABS # 1.11 K/uL (0.11-0.59); NEUT % 64.5 %; PLATELET COUNT 148 K/uL (130-400); RED CELL DISTRIBUTION WIDTH CV 14.3 % (11.5-14.5); RED CELL DISTRIBUTION WIDTH SD 50.3 fL (36.4-46.3); WHITE BLOOD COUNT 8.68 K/uL (4.8-10.8)
--- NOTE | 2017-05-28 22:12 | History and Physical ---
History & Physical Date & Time of Service: May 28, 2017 at 22:09 Chief Complaint: SOB Primary Care Physician: No Doctor, Assigned History of Present Illness Source: patient, family, hospital records 87 y/o F Hx HTN, HPL, dementia, chronic diastolic CHF, COPD, morbid obesity. Pt presents with progressive SOB. She had a reported fever of 101 this AM. Her daughter also reports that she has gained 10lbs over the past few weeks. There was no reported CP, N/V, diarrhea or dysuria. She is maintaining an adequate oxygen saturation at the time of admission and was afebrile on arrival to the ER. Initial labs are notable for an elevated Lactic acid. A CT chest was obtained and is suggestive of both acute bronchitis and volume overload. The pt herself was not able to contribute reliably to the HPI due to dementia. Her daughter is present at bedside to provide the preceding information. Past Medical/Surgical History 1) Chronic diastolic CHF 2) COPD or asthma 3) Morbid obesity 4) Moderate dementia 5) HTN 6) Hyperlipidemia Surgical: 1) ACL repair 2) Hernia repair Family History Heart disease Hypertension Social History Smoking Status: Never Smoker Drug Use: none Marital Status: Housing status: assisted living Occupational Status: retired Immunizations History of Influenza Vaccine: Yes Influenza Vaccine Date: Feb 21, 2013 History of Tetanus Vaccine?: Unknown History of Pneumococcal: Yes History of Hepatitis B Vaccine: Unknown Multi-Drug Resistant Organisms History of MDRO: No Allergies Coded Allergies: No Known Allergies (Unverified , 02/19/13) Home Medications Scheduled Budesonide (Pulmicort Respules 0.5MG/2ML), 2 ML INH BID Donepezil Hydrochloride (Donepezil Hcl), 5 MG PO HS Fluticasone Furoate-Vilanterol (Breo Ellipta 200-25 Mcg/INH), 1 PUFF INH DAILY Furosemide (Lasix), 40 MG PO BID Losartan Potassium (Cozaar), 50 MG PO QAM Metoprolol Succinate (Toprol Xl), 25 MG PO QAM Sertraline (Zoloft), 25 MG PO DAILY Scheduled PRN Acetaminophen Tab (Tylenol), 650 MG PO Q4 PRN for Mild Pain Docusate Sodium (Colace), 100 MG PO BID PRN for Constipation Ipratropium-Albuterol (Duoneb), 1 TREATMENT INH Q6 PRN for SOB/Wheezing Polyethylene Glycol 3350 (Miralax), 17 GM PO QAM PRN for Constipation Review of Systems Constitutional: + fever (temp of 101 reported in AM), No chills, No sweats Eyes: No worsening of vision ENT: No hearing loss, No nasal symptoms Respiratory: + shortness of breath, No cough, No sputum, No wheezing Cardiovascular: No chest pain, No orthopnea, No PND Abdomen: No pain, No nausea Musculoskeletal: No joint pain Genitourinary - Female: No dysuria Neurologic: + memory loss (Chronic), No paralysis Psychiatric: + depression symptoms (Can exhibit agitation/sundowning) Endocrine: No fatigue Hematologic / Lymphatic: No abnormal bleeding/bruising Integumentary: No rash Allergic / Immunologic: No environmental allergies Physical Exam Vital Signs Date Time Temp Pulse Resp B/P (MAP) Pulse Ox O2 Delivery O2 Flow Rate FiO2 05/28/17 21:22 89 34 163/83 94 Room Air 05/28/17 20:54 91 05/28/17 19:54 99 Room Air 05/28/17 19:47 36.9 90 24 166/71 98 General Appearance: WD/WN, + pertinent finding (Obese, elderly female, appears slightly agitated and was laughing continuously during exam. ) Eyes: normal inspection, EOMI ENT: normal ENT inspection, pharynx normal Neck: supple, + pertinent finding (Exam limited by habitus) Respiratory/Chest: chest non-tender, + pertinent finding (Reduced air at bases - exam is limited by poor effort and habitus) Cardiovascular: regular rate, rhythm, no gallop Abdomen/GI: normal bowel sounds, non tender, soft Back: normal inspection, no CVA tenderness Extremities/Musculoskelatal: + pedal edema, + pertinent finding (BL LE edema - LLE exhibits mild warmth/erythema) Neurologic/Psych: team supervisor II-XII nml as tested, + pertinent finding (She is oriented x 2 - did not know month/year ) Skin: + pertinent finding (Mild erythema of LLE) Diagnostics Laboratory Results Results Past 24 Hours Test 05/28/17 20:00 05/28/17 20:54 05/28/17 21:19 05/28/17 21:24 Range/Units Influenza Type A Antigen Neg for Influ A NEG Influenza Type B Antigen Neg for Influ B NEG Sodium Level 132 136-145 mmol/L Potassium Level 3.4 3.5-5.1 mmol/L Chloride Level 97 98-107 mmol/L Carbon Dioxide Level 24 21-32 mmol/L Anion Gap 11.0 3-11 mmol/L Blood Urea Nitrogen 25 7-18 mg/dl Creatinine 0.98 0.60-1.20 mg/dl Est Creatinine Clear Calc Drug Dose 49.9 ml/min Estimated GFR () 61.0 Estimated GFR (Non- 52.6 BUN/Creatinine Ratio 25.8 10-20 Random Glucose 149 70-99 mg/dl Calcium Level 8.5 8.5-10.1 mg/dl Magnesium Level 2.2 1.8-2.4 mg/dl Total Bilirubin 0.4 0.2-1 mg/dl Direct Bilirubin 0.1 0-0.2 mg/dl Aspartate Amino Transf (AST/SGOT) 22 15-37 U/L Alanine Aminotransferase (ALT/SGPT) 18 12-78 U/L Alkaline Phosphatase 56 45-117 U/L Total Creatine Kinase 94 26-192 U/L Creatine Kinase MB 0.8 0.5-3.6 ng/ml Creatine Kinase MB Ratio 0.9 0-3.0 Troponin I < 0.015 0-0.045 ng/ml Pro-B-Type Natriuretic Peptide 997 0-1800 pg/ml Total Protein 7.2 6.4-8.2 gm/dl Albumin 3.3 3.4-5.0 gm/dl White Blood Count 8.68 4.8-10.8 K/uL Red Blood Count 4.05 4.2-5.4 M/uL Hemoglobin 12.9 12.0-16.0 g/dL Hematocrit 38.5 37-47 % Mean Corpuscular Volume 95.1 80-100 fL Mean Corpuscular Hemoglobin 31.9 25-34 pg Mean Corpuscular Hemoglobin Concent 33.5 32-36 g/dl Platelet Count 148 130-400 K/uL Mean Platelet Volume 10.2 7.4-10.4 fL Neutrophils (%) (Auto) 64.5 % Lymphocytes (%) (Auto) 21.1 % Monocytes (%) (Auto) 12.8 % Eosinophils (%) (Auto) 0.3 % Basophils (%) (Auto) 0.6 % Neutrophils # (Auto) 5.60 1.4-6.5 K/uL Lymphocytes # (Auto) 1.83 1.2-3.4 K/uL Monocytes # (Auto) 1.11 0.11-0.59 K/uL Eosinophils # (Auto) 0.03 0-0.5 K/uL Basophils # (Auto) 0.05 0-0.2 K/uL RDW Standard Deviation 50.3 36.4-46.3 fL RDW Coefficient of Variation 14.3 11.5-14.5 % Immature Granulocyte % (Auto) 0.7 % Immature Granulocyte # (Auto) 0.06 0.00-0.02 K/uL Bedside Lactic Acid Arterial 2.62 0.36-1.25 mmol/L Test 05/28/17 21:28 Range/Units Bedside Hemoglobin 13.3 12.0-16.0 g/dl Bedside Hematocrit 39 37-47 % Bedside Sodium 135 135-144 mEq/L Bedside Potassium 3.7 3.3-5.0 mEq/L Bedside Chloride 97 101-112 mEq/L Bedside Total CO2 26 24-31 mEq/l Anion Gap 17.0 16-25 mmol/L Bedside Blood Urea Nitrogen 30 7-18 mg/dl Bedside Creatinine 0.8 0.6-1.3 mg/dl Bedside Glucose (other) 170 70-99 mg/dl Bedside Ionized Calcium (Brianna) 1.11 1.12-1.32 mmol/l Microbiology Results 05/28/17 Blood Culture, Received Pending 05/28/17 Blood Culture, Received Pending Diagnostic Radiology CXR: 1. Cardiomegaly and mild pulmonary vascular congestion. 2. Unchanged patchy subsegmental left basilar opacities suggest atelectasis or scarring. CT chest: 1. Motion degraded exam with mild subsegmental bibasilar atelectasis. No lobar airspace consolidations to suggest pneumonia. 2. Cardiomegaly and pulmonary vascular congestion without overt pulmonary edema. 3. Bilateral bronchial wall thickening compatible with bronchitis with areas of mild mucous plugging within the lung bases. 4. Indeterminate lobulated circumscribed homogeneous soft tissue attenuating lesion of the anterior mediastinum measuring up to 2.4 cm suggests pathologically enlarged lymph node or possibly a thymic epithelial neoplasm. 5. Dilation of the main pulmonary artery suggests pulmonary arterial hypertension within the appropriate clinical setting. 6. Additional findings as above including cholelithiasis. EKG Irreg sinus rhythm - QTc 500 - No evidence of acute ischemia Impression Assessment and Plan 87 y/o F Hx HTN, HPL, dementia, chronic diastolic CHF, COPD, morbid obesity. Pt presents with progressive SOB. She had a reported fever of 101 this AM. Her daughter also reports that she has gained 10lbs over the past few weeks. There was no reported CP, N/V, diarrhea or dysuria. She is maintaining an adequate oxygen saturation at the time of admission and was afebrile on arrival to the ER. Initial labs are notable for an elevated Lactic acid. The pt herself was not able to contribute reliably to the HPI due to dementia. Her daughter is present at bedside to provide the preceding information. 1) SOB - reported temp AM, 10lb weight gain also reported. She has a history of both CHF and COPD or asthma. We cannot assess her volume status clinically and her CXR is equivocal. A CT chest was suggestive both of bronchitis and volume overload. While in the ER she has been treated for both COPD exacerbation and CHF. We will place her on antibiotics considering both bronchitis on CT and he COPD history. Initial rapid flu is negative. 2) COPD - Pt placed on Duonebs and PRN Albuterol. We will hold steroids at present - consider use if she does not improve with diuresis. 3) Diastolic CHF - cont BID Lasix. Cont Metoprolol. May need additional IV Lasix AM. 4) Dementia - she has a tendency to sundown and has required 1 to 1 obs in hospital per daughter. We can provide a mild sedative and low-dose antipsychotic if needed. Cont Donepezil. 5) QT prolongation on EKG - will repeat AM - She received Levaquin in the ER which we have changed to Doxy. She may require an antipsychotic due to sundowning - we will provide a low-dose if necessary and repeat an EKG AM. She is assigned to telemetry for monitoring. 6) HTN, HPL - cont ARB, Lasix, B marquise 7) A mediastinal mass is seen on CT. This can be followed up in the outpt setting. 8) Her LLE may be developing cellulitis - would reassess daily - she is receiving Doxycycline regardless which should provide adequate coverage. Full code - Heparin prophylaxis Total time for this admit including review of labs, meds, imaging, records, EKG - discussion with pt,daughter, ER attending - 35 min Level of Care Telemetry Resuscitation Status DO NOT RESUSCITATE VTE Prophylaxis Given or contraindicated: Unfractionated heparin SQ
--- NOTE | 2017-05-28 22:40 | EMERGENCY ROOM VISIT NOTE ---
History Report prepared by Radha: García Villatoro Under the Supervision of: Dr. Jefferson Lopez D.O. First contact with patient: 19:45 Stated Complaint: SOB History of Present Illness The patient is a 87 year old female who presents to the Emergency Room with complaints of persistent shortness of breath starting this morning. The patient' s daughter states that the patient was having a fever of 101 this morning, and she was wheezing. She has a history of asthma, CHF, HTN, COPD, and dementia. The daughter states that the patient has not had a new cough recently, and the patient has gained 10 pounds over the past couple of months. The patient is currently on Lasix. She has never been a smoker. Patient is mentally at her baseline per daughter. Source of History: patient, family Onset: this morning Position: other (global) Quality: other (shortness of breath) Timing: other (persistent) Associated Symptoms: + fevers, No cough Review of Systems See HPI for pertinent positives & negatives. A total of 10 systems reviewed and were otherwise negative. Past Medical & Surgical Medical Problems: (1) Alzheimers disease (2) Asthma (3) CHF (congestive heart failure) (4) Heart disease (5) High cholesterol (6) Hypertension (7) PNA (pneumonia) Surgical Problems: (1) H/O hernia repair Family History Heart disease Hypertension Social History Smoking Status: Unknown if Ever Smoked Alcohol Use: none Drug Use: none Marital Status: Housing Status: [facility] Occupation Status: retired Current/Historical Medications Scheduled Budesonide (Pulmicort Respules 0.5MG/2ML), 2 ML INH BID Donepezil Hydrochloride (Donepezil Hcl), 5 MG PO HS Fluticasone Furoate-Vilanterol (Breo Ellipta 200-25 Mcg/INH), 1 PUFF INH DAILY Furosemide (Lasix), 40 MG PO BID Losartan Potassium (Cozaar), 50 MG PO QAM Metoprolol Succinate (Toprol Xl), 25 MG PO QAM Sertraline (Zoloft), 25 MG PO DAILY Scheduled PRN Acetaminophen Tab (Tylenol), 650 MG PO Q4 PRN for Mild Pain Docusate Sodium (Colace), 100 MG PO BID PRN for Constipation Ipratropium-Albuterol (Duoneb), 1 TREATMENT INH Q6 PRN for SOB/Wheezing Polyethylene Glycol 3350 (Miralax), 17 GM PO QAM PRN for Constipation Allergies Coded Allergies: No Known Allergies (Unverified , 02/19/13) Physical Exam Vital Signs Date Time Temp Pulse Resp B/P (MAP) Pulse Ox O2 Delivery O2 Flow Rate FiO2 05/28/17 21:22 89 34 163/83 94 Room Air 05/28/17 20:54 91 05/28/17 19:54 99 Room Air 05/28/17 19:47 36.9 90 24 166/71 98 Physical Exam GENERAL: Sitting up in bed, anxious, dyspneic with conversation, moderate distress. EYE EXAM: normal conjunctiva. PERRL and EOM's grossly intact. OROPHARYNX: no exudate, no erythema, lips, buccal mucosa, and tongue normal and mucous membranes are moist NECK: supple, no nuchal rigidity, no adenopathy, non-tender, positive JVD LUNGS: Wheezing throughout bilateral lung byrd along with coarse sounds at the bases. Normal chest wall mechanics HEART: tachycardic, S1 normal and S2 normal ABDOMEN: abdomen soft, non-tender, normo-active bowel sounds, no masses, no rebound or guarding. BACK: Back is symmetrical on inspection and there is no deformity, no midline tenderness, no CVA tenderness. SKIN: no rashes and no bruising UPPER EXTREMITIES: upper extremities are grossly normal. LOWER EXTREMITIES: Pitting edema bilaterally. NEURO EXAM: Awake, alert, not oriented to year. Moving all extremities. Nonfocal exam. Medical Decision & Procedures ER Provider Diagnostic Interpretation: Radiology results as stated below per my review and the radiologist's interpretation: CHEST ONE VIEW PORTABLE HISTORY: 87 years-old Female fever acute fever COMPARISON: Chest radiograph 01/16/2017 TECHNIQUE: Portable AP view of the chest FINDINGS: Cardiac silhouette is mildly enlarged. There is mild pulmonary vascular congestion without overt pulmonary edema. Atherosclerosis of the aorta. Patchy subsegmental left basilar opacities are again seen. No lobar airspace consolidation. Bones of the chest appear grossly intact. Remote healed fracture deformity of the left proximal humerus. IMPRESSION: 1. Cardiomegaly and mild pulmonary vascular congestion. 2. Unchanged patchy subsegmental left basilar opacities suggest atelectasis or scarring. The above report was generated using voice recognition software. It may contain grammatical, syntax or spelling errors. Electronically signed by: Kris Hahn M.D. 05/28/2017 8:18 PM Dictated Date/Time: 05/28/2017 8:17 PM Laboratory Results 05/28/17 21:19 Red Blood Count 4.05, Mean Corpuscular Volume 95.1, Mean Corpuscular Hemoglobin 31.9, Mean Corpuscular Hemoglobin Concent 33.5, Mean Platelet Volume 10.2, Neutrophils (%) (Auto) 64.5, Lymphocytes (%) (Auto) 21.1, Monocytes (%) (Auto) 12.8, Eosinophils (%) (Auto) 0.3, Basophils (%) (Auto) 0.6, Neutrophils # (Auto ) 5.60, Lymphocytes # (Auto) 1.83, Monocytes # (Auto) 1.11, Eosinophils # (Auto ) 0.03, Basophils # (Auto) 0.05 05/28/17 20:54 Test 05/28/17 20:00 05/28/17 20:54 05/28/17 21:19 05/28/17 21:24 Influenza Type A Antigen Neg for Influ A (NEG) Influenza Type B Antigen Neg for Influ B (NEG) Est Creatinine Clear Calc Drug Dose 49.9 ml/min Estimated GFR () 61.0 Estimated GFR (Non- 52.6 BUN/Creatinine Ratio 25.8 (10-20) Calcium Level 8.5 mg/dl (8.5-10.1) Magnesium Level 2.2 mg/dl (1.8-2.4) Total Bilirubin 0.4 mg/dl (0.2-1) Direct Bilirubin 0.1 mg/dl (0-0.2) Aspartate Amino Transf (AST/SGOT) 22 U/L (15-37) Alanine Aminotransferase (ALT/SGPT) 18 U/L (12-78) Alkaline Phosphatase 56 U/L (45-117) Total Creatine Kinase 94 U/L (26-192) Creatine Kinase MB 0.8 ng/ml (0.5-3.6) Creatine Kinase MB Ratio 0.9 (0-3.0) Troponin I < 0.015 ng/ml (0-0.045) Pro-B-Type Natriuretic Peptide 997 pg/ml (0-1800) Total Protein 7.2 gm/dl (6.4-8.2) Albumin 3.3 gm/dl (3.4-5.0) White Blood Count 8.68 K/uL (4.8-10.8) Red Blood Count 4.05 M/uL (4.2-5.4) Hemoglobin 12.9 g/dL (12.0-16.0) Hematocrit 38.5 % (37-47) Mean Corpuscular Volume 95.1 fL (80-100) Mean Corpuscular Hemoglobin 31.9 pg (25-34) Mean Corpuscular Hemoglobin Concent 33.5 g/dl (32-36) Platelet Count 148 K/uL (130-400) Mean Platelet Volume 10.2 fL (7.4-10.4) Neutrophils (%) (Auto) 64.5 % Lymphocytes (%) (Auto) 21.1 % Monocytes (%) (Auto) 12.8 % Eosinophils (%) (Auto) 0.3 % Basophils (%) (Auto) 0.6 % Neutrophils # (Auto) 5.60 K/uL (1.4-6.5) Lymphocytes # (Auto) 1.83 K/uL (1.2-3.4) Monocytes # (Auto) 1.11 K/uL (0.11-0.59) Eosinophils # (Auto) 0.03 K/uL (0-0.5) Basophils # (Auto) 0.05 K/uL (0-0.2) RDW Standard Deviation 50.3 fL (36.4-46.3) RDW Coefficient of Variation 14.3 % (11.5-14.5) Immature Granulocyte % (Auto) 0.7 % Immature Granulocyte # (Auto) 0.06 K/uL (0.00-0.02) Bedside Lactic Acid Arterial 2.62 mmol/L (0.36-1.25) Test 05/28/17 21:28 Bedside Hemoglobin 13.3 g/dl (12.0-16.0) Bedside Hematocrit 39 % (37-47) Bedside Sodium 135 mEq/L (135-144) Bedside Potassium 3.7 mEq/L (3.3-5.0) Bedside Chloride 97 mEq/L (101-112) Bedside Total CO2 26 mEq/l (24-31) Anion Gap 17.0 mmol/L (16-25) Bedside Blood Urea Nitrogen 30 mg/dl (7-18) Bedside Creatinine 0.8 mg/dl (0.6-1.3) Bedside Glucose (other) 170 mg/dl (70-99) Bedside Ionized Calcium (Brianna) 1.11 mmol/l (1.12-1.32) Laboratory results per my review. Medications Administered Medications (Trade) Dose Ordered Sig/Bryon Route Start Time Stop Time Status Last Admin Dose Admin Albuterol Sulfate (Ventolin 0.083% 2.5MG/3ML Neb) 2.5 mg NOW STAT INH 05/28/17 19:55 05/28/17 19:56 DC 05/28/17 19:59 2.5 MG Levofloxacin (Levaquin / D5W) 750 mg NOW STAT IV 05/28/17 20:58 05/28/17 20:59 DC 05/28/17 21:09 750 MG Methylprednisolone Sodium Succinate (Solu-Medrol IV) 40 mg NOW STAT IV 05/28/17 21:09 05/28/17 21:11 DC 05/28/17 21:22 40 MG Furosemide (Lasix Inj) 40 mg NOW STAT IV 05/28/17 22:02 05/28/17 22:03 DC 05/28/17 22:15 40 MG ECG Indication: SOB/dyspnea Rate (beats per minute): 88 Rhythm: atrial fibrillation Findings: nonspecific-ST abn (Lateral), other (Normal axis) Change: Patient's electrocardiogram interpreted by me. ED Course ED COURSE: Vital signs were reviewed and showed tachycardia and hypertension The patients medical record was reviewed The above diagnostic studies were performed and reviewed. ED treatments and interventions as stated above. 1944: The patient was evaluated in room B4. A complete history and physical examination was performed. 1954: Albuterol Sulfate 2.5mg INH 2019: They were able to get an IV in the patient but no blood work. 2056: Upon reevaluation, the patient is stable.I discussed my findings with the patient and her family, and they understand and agree with the treatment plan. Based on the patients age, coexisting illnesses, exam and lab findings the decision to treat as an inpatient was made. The patient remained stable while under my care. The patient will be evaluated for further management. 2057: Levofloxacin 750mg IV 2108: Solu-Medrol 40mg IV 2147: I reviewed the patient's case with Dr. Ade HARVEY Hospitalist. He will evaluate the patient for further management. Medical Decision Differential diagnoses includes but is not limited to pneumonia, bronchitis, COPD/Asthma exacerbation, pneumothorax, pulmonary embolism, congestive heart failure, acute coronary syndrome. Patient is an 87-year-old female who presents to ER referred in by [facility] for shortness of breath. She is brought in by medics. On exam she is extremely dyspneic. She does have a history of asthma, COPD and CHF. Patient was given several neb treatments prior to arrival. I gave her several distal neb treatments with the wheezing. She did have some improvement of her symptoms. She had pitting edema as well. Chest x-ray shows no focal infiltrate. She was febrile. She was covered with IV Levaquin. CBC all BMP, LFTs, and troponin was unremarkable. EKG was not significant change from previous. Influenza was negative. Patient was also given some steroids as well. With her elevated lactate initially elect to give her Lasix but will hold at this point. Patient family were updated bedside. She'll be evaluated by internal medicine for asthma exacerbation in combination with CHF. Medication Reconcilliation Current Medication List: was personally reviewed by me Blood Pressure Screening Patient's blood pressure: Elevated blood pressure Monitored by the hospitalist. Consults Time Called: 2108 Consulting Physician: Dr. Ade HARVEY Hospitalist Returned Call: [phone] I reviewed the patient's case with Dr. Ade HARVEY Hospitalist. He will evaluate the patient for further management. Impression Primary Impression: Asthma exacerbation Additional Impression: CHF (congestive heart failure) Scribe Attestation The scribe's documentation has been prepared under my direction and personally reviewed by me in its entirety. I confirm that the note above accurately reflects all work, treatment, procedures, and medical decision making performed by me. Departure Information Dispostion Being Evaluated By Hospitalist Referrals No Doctor, Assigned (PCP) Problem Qualifiers Primary Impression: Asthma exacerbation Asthma severity: unspecified severity Asthma persistence: unspecified Qualified Codes: J45.901 - Unspecified asthma with (acute) exacerbation Additional Impression: CHF (congestive heart failure) Heart failure type: unspecified Heart failure chronicity: unspecified Qualified Codes: I50.9 - Heart failure, unspecified
[2017-05-28] MEDS ORDERED: MoRPHine SULFATE 2 MG/ML CARP IV PRN (22:45)
[2017-05-28] MEDS ORDERED: NITROGLYCERIN 0.4 MG SL PER TAB CHARGE SL PRN (22:45)
[2017-05-28] MEDS ORDERED: ALUMINUM/MAGNESIUM/SIMETH (MAALOX MAX) 30 ML UDC PO PRN (22:45)
[2017-05-28] MEDS ORDERED: ONDANSETRON INJ 2 MG/ML 2 ML VIAL IV PRN (22:45)
[2017-05-28] MEDS ORDERED: ACETAMINOPHEN 325 MG TAB PO PRN (22:45)
[2017-05-28] MEDS ORDERED: MAGNESIUM HYDROXIDE SUSP 30 ML UDC PO PRN (22:45)
[2017-05-28 23:20] VITALS: BP 137/80; PULSE 83; TEMP 37; O2SAT 92; Ht 157.5 cm; Wt 118.2 kg
[2017-05-28] MEDS ORDERED: LORAZEPAM 2 MG/ML 1 ML VIAL IV PRN (23:30)
[2017-05-28] MEDS ORDERED: OLANZAPINE ZYDIS 5 MG ORALLY DIS. TAB PO PRN (23:30)
--- NOTE | 2017-05-28 23:38 | DIAGNOSTIC IMAGING REPORT ---
(CHEST) THORAX WITHOUT CT DOSE: 950.26 mGy.cm CLINICAL HISTORY: 87 years-old Female with CHF vs PNM. Acute fever with left basilar opacities and cardiomegaly TECHNIQUE: Multiaxial CT images of the chest were performed without contrast. A dose lowering technique was utilized adhering to the principles of ALARA. COMPARISON: Chest radiograph of same day. FINDINGS: No dominant thyroid nodule identified. There is a lobulated circumscribed soft tissue attenuating lesion of the anterior mediastinum nicely seen on image 93 series 4 which measures 1.5 x 2.0 x 2.4 cm without invasion into adjacent mediastinal structures contain nicely within the anterior mediastinal fat. No calcifications or macroscopic fat components. No additional focal soft tissue abnormalities or adenopathy of the chest identified. Mildly prominent left paratracheal and subcarinal lymph nodes are seen measuring up to 8 mm in short axis. Mural fibrofatty changes involving the left ventricular apex compatible with prior myocardial infarction. Moderate multichamber cardiac enlargement. Coronary arterial disease is noted with moderate atherosclerosis of the thoracic aortic arch. Mitral annular calcifications noted. Dilation of the pulmonary artery, 3.3 cm suggests pulmonary arterial hypertension. There is no pneumothorax, or pleural effusion. Evaluation of the lungs is limited secondary to respiratory motion. There is mild pulmonary vascular congestion with bilateral bronchial wall thickening with mild mucous plugging. Bibasilar subsegmental reticular opacities suggest areas of atelectasis/scarring. No suspicious pulmonary nodules or masses identified within the lungs. No acute abnormality of the imaged upper abdomen. Cholelithiasis. Small sliding-type hiatal hernia. Soft tissues are unremarkable. Appear intact. IMPRESSION: 1. Motion degraded exam with mild subsegmental bibasilar atelectasis. No lobar airspace consolidations to suggest pneumonia. 2. Cardiomegaly and pulmonary vascular congestion without overt pulmonary edema. 3. Bilateral bronchial wall thickening compatible with bronchitis with areas of mild mucous plugging within the lung bases. 4. Indeterminate lobulated circumscribed homogeneous soft tissue attenuating lesion of the anterior mediastinum measuring up to 2.4 cm suggests pathologically enlarged lymph node or possibly a thymic epithelial neoplasm. Correlate with any prior CT imaging of the chest to determine stability. 5. Dilation of the main pulmonary artery suggests pulmonary arterial hypertension within the appropriate clinical setting. 6. Additional findings as above including cholelithiasis. Electronically signed by: Kris Hahn M.D. 05/28/2017 11:36 PM Dictated Date/Time: 05/28/2017 11:24 PM
[2017-05-28 23:46] LABS: INR 1.1 (0.9-1.1)
[2017-05-29] VITALS (9 sets, daily range): BP systolic 110–187; BP diastolic 61–98; PULSE 66–78; TEMP 36.5–37; O2SAT 93–98
[2017-05-29] MEDS ORDERED: POTASSIUM CHLORIDE PWD 20 MEQ PACK PO ONE (01:00)
[2017-05-29] MEDS: DOXYCYCLINE IV 100 MG in DEXTROSE 5% 100ML 100 ML IV SCH ×2 (01:11→13:39)
[2017-05-29] MEDS: NITROGLYCERIN 2% OINTMENT 30GM TUBE EXT SCH ×4 (01:13→18:00)
[2017-05-29 05:37] LABS: HEMATOCRIT 36.6 % (37-47); HEMOGLOBIN 12.2 g/dL (12.0-16.0); MEAN CELL VOLUME 96.1 fL (80-100); MEAN CORPUSCULAR HGB CONC 33.3 g/dl (32-36); MEAN PLATELET VOLUME 10.5 fL (7.4-10.4); PLATELET COUNT 149 K/uL (130-400); RED CELL DISTRIBUTION WIDTH CV 14.1 % (11.5-14.5); RED CELL DISTRIBUTION WIDTH SD 49.8 fL (36.4-46.3); WHITE BLOOD COUNT 6.32 K/uL (4.8-10.8)
[2017-05-29 06:05] LABS: CREATININE 0.97 mg/dl (0.60-1.20)
[2017-05-29 06:06] LABS: CALCIUM 8.3 mg/dl (8.5-10.1); POTASSIUM 4.1 mmol/L (3.5-5.1)
[2017-05-29] MEDS: HEPARIN SOD 5000 UNIT/0.5 ML CARP SQ SCH ×3 (06:25→21:27)
[2017-05-29] MEDS: BUDESONIDE 0.5 MG/2 ML VIAL (PULMICORT) INH SCH ×2 (07:37→20:08)
[2017-05-29] MEDS: POTASSIUM CHLORIDE 10 MEQ TABCR PO SCH ×2 (08:18→17:00)
[2017-05-29] MEDS: METOPROLOL SUCC 25MG EXT REL TAB PO SCH (08:19)
[2017-05-29] MEDS: LOSARTAN POTASSIUM 50 MG TAB PO SCH (08:19)
[2017-05-29] MEDS: SERTRALINE HCL 50 MG TAB PO SCH (08:19)
[2017-05-29] MEDS: FUROSEMIDE 40 MG TAB PO SCH ×2 (08:19→17:00)
--- NOTE | 2017-05-29 08:40 | Clinical Documentation Query ---
CLINICAL DOCUMENTATION QUERY 87 year old female who presents to the Emergency Room with complaints of persistent shortness of breath. H&P state CHF, unspecified. It is also important to note that new changes in requirements for documentation of patient clinical severity include the diagnosis of heart failure. The medical record documentation is now expected to include definitive and explicit description of the patient's heart failure; vague terms such as "heart failure," ventricular dysfunction," and "CHF" may not fully capture the physician's intended level of severity. In your clinical opinion is this patient being managed for: ( x) Acute on chronic diastolic CHF treated with IV Lasix ( ) Not Agree ( ) Other explanation of clinical findings (Please Explain) ( ) Unable to determine (Please Define) ( ) Need to Discuss The medical record reflects the following clinical findings, treatment, and risk factors. Clinical Indicators: SOB, A CT chest was obtained and is suggestive of both acute bronchitis and volume overload. Reported 10lb weight gain. ED exam noted patient sitting up in bed, anxious, dyspneic with conversation, moderate distress. Wheezing throughout bilateral lung byrd along with coarse sounds at the bases. Treatment: IV Lasix, telemetry, I/O's, daily weights, Risk Factors: Age, Hx of diastolic CHF, HTN, morbid obesity, Please clarify and document your clinical opinion in the progress notes and discharge summary. Terms such as "probable", "suspected", "likely", "questionable", "possible", or "still to be ruled out" are acceptable. IF IN AGREEMENT, YOU MUST DOCUMENT ABOVE DIAGNOSTIC STATEMENT IN DAILY PROGRESS NOTES AND DISCHARGE SUMMARY. This document is not part of the patient's record. Thank You, Clem Gan, RN [phone]
[2017-05-29] MEDS ORDERED: FUROSEMIDE 40 MG TAB PO SCH (09:00)
[2017-05-29] MEDS ORDERED: FUROSEMIDE INJ 40 MG in SYRINGE 0 ML IV ONE (11:30)
--- NOTE | 2017-05-29 14:08 | Cardiology Consultation ---
Cardiology Consultation Date of Consultation: May 29, 2017. Requesting Physician: Molly Reason for Consultation: CHF Pt evaluation today including: conversation w/ patient, physical exam, chart review, lab review, review of studies, review of inpatient medication list, conversation w/ attending History of Present Illness The patient is an 87-year-old woman with a history of dementia and presumed diastolic heart failure who presented to [facility] with worsening dyspnea. The patient is a resident at a local nursing facility. It seems that she had been complaining of more breathing difficulty was brought to the emergency room [facility]. On examination she is felt to have an element of both bronchitis and pulmonary vascular congestion. She was placed on antibiotic therapy and admitted to the hospital for diuresis. At the time of this interview the patient claims to be feeling well. She suffers from moderate dementia and her history may be unreliable. She states that her breathing is currently fine. She denies any current symptoms of pain. She cannot recall any palpitations. She did not have good insight into why she was in the hospital. She did not have a good understanding where she currently lives. Past Medical/Surgical History Dementia Hypertension COPD Asthma Past surgical history Eye surgery Family History Heart disease Hypertension Noncontributory given her advanced age Social History Smoking Status: Never Smoker History of Alcohol Use: No Currently a resident at [facility] Review of Systems Respiratory: + cough, + wheezing Review systems was obtained but may be unreliable given the patient's notable dementia All Other Systems: Reviewed and Negative Allergies Coded Allergies: No Known Allergies (Unverified , 02/19/13) Medications Current Inpatient Medications Medications (Trade) Dose Ordered Sig/Bryon Route Start Time Stop Time Status Last Admin Dose Admin Budesonide (Pulmicort Respules 0.5MG/ 2ML Neb Soln) 0.5 mg BIDR INH 05/29/17 08:00 06/28/17 07:59 05/29/17 07:37 0.5 MG Docusate Sodium (coLACE CAP) 100 mg BID PRN PO 05/28/17 22:00 06/27/17 21:59 Donepezil HCl (Aricept Tab) 5 mg HS PO 05/29/17 21:00 06/28/17 20:59 Albuterol/ Ipratropium (Duoneb) 1 ml Q6R PRN INH 05/28/17 22:00 06/27/17 21:59 Losartan Potassium (coZAAR TAB) 50 mg QAM PO 05/29/17 09:00 06/28/17 08:59 05/29/17 08:19 50 MG Metoprolol Succinate (Toprol Xl Tab) 25 mg QAM PO 05/29/17 09:00 06/28/17 08:59 05/29/17 08:19 25 MG Sertraline HCl (Zoloft Tab) 25 mg DAILY PO 05/29/17 09:00 06/28/17 08:59 05/29/17 08:19 25 MG Miscellaneous Information (Order Awaiting Action) 1 ea QS N/A 05/29/17 00:00 06/28/17 00:00 Heparin Sodium (Porcine) (Heparin Sq 5000 Unit/0.5ml) 5,000 unit Q8 SQ 05/29/17 06:00 06/28/17 05:59 05/29/17 06:25 5,000 UNIT Acetaminophen (Tylenol Tab) 650 mg Q4H PRN PO 05/28/17 22:45 06/27/17 22:44 Al Hydrox/Mg Hydrox/Simethicone (Maalox Max Susp) 15 ml Q4H PRN PO 05/28/17 22:45 06/27/17 22:44 Magnesium Hydroxide (Milk Of Magnesia Susp) 30 ml Q12H PRN PO 05/28/17 22:45 06/27/17 22:44 Ondansetron HCl (Zofran Inj) 4 mg Q6H PRN IV 05/28/17 22:45 06/27/17 22:44 Nitroglycerin (Nitrostat Tab) 0.4 mg UD PRN SL 05/28/17 22:45 06/27/17 22:44 Nitroglycerin (Nitroglycerin 2% Oint) 1 inch Q6 EXT 05/29/17 00:00 06/28/17 00:00 05/29/17 06:29 1 INCH Morphine Sulfate (MoRPHine SULFATE INJ) 2 mg Q30M PRN IV 05/28/17 22:45 06/11/17 22:44 05/29/17 00:31 2 MG Polyethylene (Miralax Powder Packet) 17 gm DAILY PRN PO 05/28/17 22:45 06/27/17 22:44 Lorazepam (Ativan Inj) 0.5 mg Q12H PRN IV 05/28/17 23:30 06/27/17 23:29 05/29/17 00:28 0.5 MG Olanzapine (Zyprexa Zydis Od Tab) 1.25 mg HS PRN PO 05/28/17 23:30 06/27/17 23:29 Doxycycline Hyclate 100 mg/ Dextrose 110 ml @ 50 mls/hr Q12H IV 05/29/17 01:00 06/05/17 00:59 05/29/17 01:11 50 MLS/HR Furosemide (Lasix Tab) 40 mg BID17 PO 05/29/17 09:00 06/28/17 08:59 05/29/17 08:19 40 MG Potassium Chloride (Klor-Con M10) 10 meq BID17 PO 05/29/17 09:00 06/28/17 08:59 05/29/17 08:18 10 MEQ Physical Exam Vital Signs Past 12 Hours Date Time Temp Pulse Resp B/P (MAP) Pulse Ox O2 Delivery O2 Flow Rate FiO2 05/29/17 12:00 Nasal Cannula 2.0 05/29/17 10:52 36.8 73 22 157/76 (103) 95 Nasal Cannula 2.0 05/29/17 08:00 Nasal Cannula 2.0 05/29/17 07:38 67 18 93 Nasal Cannula 2.0 05/29/17 07:31 36.5 68 24 187/68 (107) 98 Nasal Cannula 2.0 05/29/17 04:00 36.7 78 22 112/61 (78) 95 Nasal Cannula 2.0 05/29/17 04:00 95 Nasal Cannula 2.0 She is alert and oriented to person and place. Mood affect appear normal. She answered all questions but some of her answers are clearly incorrect. HEENT: Sclerae are anicteric. Pupils are equal and reactive to light and accommodation. Extraocular movements were intact. Neuro: Cranial nerves intact Neck: Examination of the submandibular region did not reveal any significant lymphadenopathy. Carotids are palpable bilaterally and free of bruits on auscultation. There was no evidence of jugular venous distention. The thyroid was not enlarged. Lungs: Lungs are clear to auscultation bilaterally. There are no rales or rhonchi. She has some expiratory wheezing. She has normal respiratory effort without use of accessory muscles. There is normal pulmonary excursion. Cardiac: The rhythm was regular. S1 and S2 were normal. There are no murmurs on examination. The PMI was not markedly displaced on palpation. Abdomen: The abdomen was soft and nontender. Extremities: Patient has bilateral radial pulses that are equal in intensity. There is no evidence cyanosis or clubbing. There was no evidence of significant peripheral edema bilaterally. Skin: There are no rashes noted on examination today. Data Laboratory Results: Last 24 Hours Test 05/28/17 20:00 05/28/17 20:54 05/28/17 21:19 05/28/17 21:24 Influenza Type A Antigen Neg for Influ A Influenza Type B Antigen Neg for Influ B Sodium Level 132 mmol/L Potassium Level 3.4 mmol/L Chloride Level 97 mmol/L Carbon Dioxide Level 24 mmol/L Anion Gap 11.0 mmol/L Blood Urea Nitrogen 25 mg/dl Creatinine 0.98 mg/dl Est Creatinine Clear Calc Drug Dose 49.9 ml/min Estimated GFR () 61.0 Estimated GFR (Non- 52.6 BUN/Creatinine Ratio 25.8 Random Glucose 149 mg/dl Calcium Level 8.5 mg/dl Magnesium Level 2.2 mg/dl Total Bilirubin 0.4 mg/dl Direct Bilirubin 0.1 mg/dl Aspartate Amino Transf (AST/SGOT) 22 U/L Alanine Aminotransferase (ALT/SGPT) 18 U/L Alkaline Phosphatase 56 U/L Total Creatine Kinase 94 U/L Creatine Kinase MB 0.8 ng/ml Creatine Kinase MB Ratio 0.9 Troponin I < 0.015 ng/ml Pro-B-Type Natriuretic Peptide 997 pg/ml Total Protein 7.2 gm/dl Albumin 3.3 gm/dl White Blood Count 8.68 K/uL Red Blood Count 4.05 M/uL Hemoglobin 12.9 g/dL Hematocrit 38.5 % Mean Corpuscular Volume 95.1 fL Mean Corpuscular Hemoglobin 31.9 pg Mean Corpuscular Hemoglobin Concent 33.5 g/dl Platelet Count 148 K/uL Mean Platelet Volume 10.2 fL Neutrophils (%) (Auto) 64.5 % Lymphocytes (%) (Auto) 21.1 % Monocytes (%) (Auto) 12.8 % Eosinophils (%) (Auto) 0.3 % Basophils (%) (Auto) 0.6 % Neutrophils # (Auto) 5.60 K/uL Lymphocytes # (Auto) 1.83 K/uL Monocytes # (Auto) 1.11 K/uL Eosinophils # (Auto) 0.03 K/uL Basophils # (Auto) 0.05 K/uL RDW Standard Deviation 50.3 fL RDW Coefficient of Variation 14.3 % Immature Granulocyte % (Auto) 0.7 % Immature Granulocyte # (Auto) 0.06 K/uL Prothrombin Time 11.1 SECONDS Prothromb Time International Ratio 1.1 Bedside Lactic Acid Arterial 2.62 mmol/L Test 05/28/17 21:28 05/29/17 02:00 05/29/17 05:28 Bedside Hemoglobin 13.3 g/dl Bedside Hematocrit 39 % Bedside Sodium 135 mEq/L Bedside Potassium 3.7 mEq/L Bedside Chloride 97 mEq/L Bedside Total CO2 26 mEq/l Anion Gap 17.0 mmol/L 9.0 mmol/L Bedside Blood Urea Nitrogen 30 mg/dl Bedside Creatinine 0.8 mg/dl Bedside Glucose (other) 170 mg/dl Bedside Ionized Calcium (Brianna) 1.11 mmol/l Urine Color YELLOW Urine Appearance CLEAR Urine pH 5.0 Urine Specific [place] 1.013 Urine Protein NEG Urine Glucose (UA) NEG Urine Ketones NEG Urine Occult Blood TRACE Urine Nitrite NEG Urine Bilirubin NEG Urine Urobilinogen NEG Urine Leukocyte Esterase NEG Urine WBC (Auto) 0 /hpf Urine RBC (Auto) 0-4 /hpf Urine Hyaline Casts (Auto) 1-5 /lpf Urine Epithelial Cells (Auto) 0-5 /lpf Urine Bacteria (Auto) NEG White Blood Count 6.32 K/uL Red Blood Count 3.81 M/uL Hemoglobin 12.2 g/dL Hematocrit 36.6 % Mean Corpuscular Volume 96.1 fL Mean Corpuscular Hemoglobin 32.0 pg Mean Corpuscular Hemoglobin Concent 33.3 g/dl RDW Standard Deviation 49.8 fL RDW Coefficient of Variation 14.1 % Platelet Count 149 K/uL Mean Platelet Volume 10.5 fL Sodium Level 133 mmol/L Potassium Level 4.1 mmol/L Chloride Level 100 mmol/L Carbon Dioxide Level 24 mmol/L Blood Urea Nitrogen 22 mg/dl Creatinine 0.97 mg/dl Est Creatinine Clear Calc Drug Dose 51.9 ml/min Estimated GFR () 61.7 Estimated GFR (Non- 53.3 BUN/Creatinine Ratio 22.9 Random Glucose 206 mg/dl Lactic Acid Level 3.4 mmol/L Calcium Level 8.3 mg/dl Magnesium Level 2.0 mg/dl Imaging: Chest x-ray and chest CT suggests an element of bronchitis and pulmonary vascular congestion. EKG: Normal sinus rhythm with frequent atrial ectopy. Telemetry reviewed: No significant arrhythmia, just frequent atrial ectopy Echocardiograms performed as an outpatient on September 22, 2016. Preserved LV systolic function with some mild LVH. No significant valvular disease. Assessment & Plan 1. Shortness of breath: Patient may have an element of bronchitis as well as broncho spasm. Her imaging studies would suggest an element of pulmonary vascular congestion. She has been maintained on a dose of diuretic as an outpatient. While she is reported to have had a 10 lb weight gain her weight today is only mildly up from that measured in the outpatient setting in February of the 2016. She did receive 1 dose of intravenous furosemide. I think restarting her outpatient regimen is also appropriate. She is being treated for bronchitis as well. I think these measures would likely result in improvement in her symptoms. We can see how well the furosemide has work and determine if she requires any additional intravenous therapy. I do not think she requires any additional cardiac evaluation the absence of decompensation or lack of improvement.
[2017-05-29] MEDS: ALBUT/IPRATROP 3MG/0.5MG NEB 3 ML VIAL INH PRN (20:54)
[2017-05-29] MEDS: DONEPEZIL HCL 5 MG TAB PO SCH (21:24)
[2017-05-30] VITALS (12 sets, daily range): BP systolic 102–165; BP diastolic 43–81; PULSE 61–130; TEMP 36.5–37; O2SAT 92–97
[2017-05-30] MEDS: NITROGLYCERIN 2% OINTMENT 30GM TUBE EXT SCH ×5 (00:13→23:58)
[2017-05-30] MEDS: DOXYCYCLINE IV 100 MG in DEXTROSE 5% 100ML 100 ML IV SCH ×3 (00:13→23:41)
[2017-05-30] MEDS: HEPARIN SOD 5000 UNIT/0.5 ML CARP SQ SCH ×3 (05:57→20:50)
[2017-05-30] MEDS: BUDESONIDE 0.5 MG/2 ML VIAL (PULMICORT) INH SCH ×2 (06:52→19:23)
[2017-05-30] MEDS: POTASSIUM CHLORIDE 10 MEQ TABCR PO SCH ×2 (07:34→17:03)
[2017-05-30] MEDS: FUROSEMIDE 40 MG TAB PO SCH ×2 (07:35→17:03)
[2017-05-30] MEDS: LOSARTAN POTASSIUM 50 MG TAB PO SCH (07:35)
[2017-05-30] MEDS: METOPROLOL SUCC 25MG EXT REL TAB PO SCH (07:36)
[2017-05-30] MEDS: SERTRALINE HCL 50 MG TAB PO SCH (07:36)
--- NOTE | 2017-05-30 08:39 | Progress Note ---
Subjective Date of Service: May 29, 2017. Subjective Pt evaluation today including: conversation w/ patient Desire is a pleasant 87 yo female who has moderate to severe dementia. She understands she is in the hospital, but thinks it is 2014 and the president is Marcelo. Patient does not provide adequate history and states she feels fine. Reviewing HPI, patient was short of breath at admission Problem List Medical Problems: (1) Asthma exacerbation Status: Acute (2) Bilateral pneumonia Status: Acute (3) CHF (congestive heart failure) Status: Acute (4) Congestive heart failure Status: Acute (5) Contusion of right shoulder Status: Acute (6) Facial contusion Status: Acute (7) Fall Status: Acute Review of Systems All Other Systems: Reviewed and Negative Medications Current Inpatient Medications Medications (Trade) Dose Ordered Sig/Bryon Route Start Time Stop Time Status Last Admin Dose Admin Budesonide (Pulmicort Respules 0.5MG/ 2ML Neb Soln) 0.5 mg BIDR INH 05/29/17 08:00 06/28/17 07:59 05/30/17 06:52 0.5 MG Docusate Sodium (coLACE CAP) 100 mg BID PRN PO 05/28/17 22:00 06/27/17 21:59 Donepezil HCl (Aricept Tab) 5 mg HS PO 05/29/17 21:00 06/28/17 20:59 05/29/17 21:24 5 MG Albuterol/ Ipratropium (Duoneb) 1 ml Q6R PRN INH 05/28/17 22:00 06/27/17 21:59 05/29/17 20:54 1 ML Losartan Potassium (coZAAR TAB) 50 mg QAM PO 05/29/17 09:00 06/28/17 08:59 05/30/17 07:35 50 MG Metoprolol Succinate (Toprol Xl Tab) 25 mg QAM PO 05/29/17 09:00 06/28/17 08:59 05/30/17 07:36 25 MG Sertraline HCl (Zoloft Tab) 25 mg DAILY PO 05/29/17 09:00 06/28/17 08:59 05/30/17 07:36 25 MG Miscellaneous Information (Order Awaiting Action) 1 ea QS N/A 05/29/17 00:00 06/28/17 00:00 Heparin Sodium (Porcine) (Heparin Sq 5000 Unit/0.5ml) 5,000 unit Q8 SQ 05/29/17 06:00 06/28/17 05:59 05/30/17 05:57 5,000 UNIT Acetaminophen (Tylenol Tab) 650 mg Q4H PRN PO 05/28/17 22:45 06/27/17 22:44 Al Hydrox/Mg Hydrox/Simethicone (Maalox Max Susp) 15 ml Q4H PRN PO 05/28/17 22:45 06/27/17 22:44 Magnesium Hydroxide (Milk Of Magnesia Susp) 30 ml Q12H PRN PO 05/28/17 22:45 06/27/17 22:44 Ondansetron HCl (Zofran Inj) 4 mg Q6H PRN IV 05/28/17 22:45 06/27/17 22:44 Nitroglycerin (Nitrostat Tab) 0.4 mg UD PRN SL 05/28/17 22:45 06/27/17 22:44 Nitroglycerin (Nitroglycerin 2% Oint) 1 inch Q6 EXT 05/29/17 00:00 06/28/17 00:00 05/30/17 05:56 1 INCH Morphine Sulfate (MoRPHine SULFATE INJ) 2 mg Q30M PRN IV 05/28/17 22:45 06/11/17 22:44 05/29/17 00:31 2 MG Polyethylene (Miralax Powder Packet) 17 gm DAILY PRN PO 05/28/17 22:45 06/27/17 22:44 Lorazepam (Ativan Inj) 0.5 mg Q12H PRN IV 05/28/17 23:30 06/27/17 23:29 05/29/17 00:28 0.5 MG Olanzapine (Zyprexa Zydis Od Tab) 1.25 mg HS PRN PO 05/28/17 23:30 06/27/17 23:29 Doxycycline Hyclate 100 mg/ Dextrose 110 ml @ 50 mls/hr Q12H IV 05/29/17 01:00 06/05/17 00:59 05/30/17 00:13 50 MLS/HR Furosemide (Lasix Tab) 40 mg BID17 PO 05/29/17 09:00 3/15/18 08:59 05/30/17 07:35 40 MG Potassium Chloride (Klor-Con M10) 10 meq BID17 PO 05/29/17 09:00 06/28/17 08:59 05/30/17 07:34 10 MEQ Objective Vital Signs Date Time Temp Pulse Resp B/P (MAP) Pulse Ox O2 Delivery O2 Flow Rate FiO2 05/30/17 07:18 36.9 66 20 165/75 (105) 94 Nasal Cannula 2.0 05/30/17 06:52 71 22 95 Nasal Cannula 2.0 05/30/17 04:30 Nasal Cannula 2.0 05/30/17 03:30 36.8 73 21 130/43 (72) 96 Nasal Cannula 2.0 05/30/17 00:13 37.0 66 21 136/75 (95) 96 Nasal Cannula 2.0 05/30/17 00:13 Nasal Cannula 2.0 05/29/17 23:41 37.0 66 21 136/75 (95) 96 Nasal Cannula 2.0 05/29/17 21:27 Nasal Cannula 2.0 05/29/17 20:56 72 24 95 Nasal Cannula 2.0 05/29/17 20:10 76 22 94 Nasal Cannula 2.0 05/29/17 19:14 36.9 72 18 110/66 (81) 95 Nasal Cannula 2.0 05/29/17 16:00 Nasal Cannula 2.0 05/29/17 14:59 36.8 68 24 174/98 (123) 95 Nasal Cannula 2.0 05/29/17 12:00 Nasal Cannula 2.0 05/29/17 10:52 36.8 73 22 157/76 (103) 95 Nasal Cannula 2.0 Physical Exam General Appearance: WD/WN, no apparent distress Eyes: normal inspection ENT: normal ENT inspection Neck: supple, no adenopathy Respiratory/Chest: chest non-tender, lungs clear (with some expiratory wheeze) Cardiovascular: regular rate, rhythm, no edema Abdomen: normal bowel sounds, non tender, soft Extremities: normal range of motion Neurologic/Psychiatric: alert (oriented x2 to person and place) Skin: normal color Lymphatic: no adenopathy Assessment and Plan 87 y/o F Hx HTN, HPL, dementia, chronic diastolic CHF, COPD, morbid obesity. Pt presents with progressive SOB. She had a reported fever of 101 this AM. Her daughter also reports that she has gained 10lbs over the past few weeks. There was no reported CP, N/V, diarrhea or dysuria. She is maintaining an adequate oxygen saturation at the time of admission and was afebrile on arrival to the ER. Initial labs are notable for an elevated Lactic acid. The pt herself was not able to contribute reliably to the HPI due to dementia. Her daughter is present at bedside to provide the preceding information. 1) SOB likely from Bronchitis with some possible component of Diastolic HF - patient has been afebrile during hospital stay -C-x-ray shows some vascular congestion -Ct scan did show some evidenct of bronchitis and congestion -Patient is on antibiotics and diuresis. -Cardio has been consulted as well 2) COPD - Pt placed on Duonebs and PRN Albuterol. We will continue to hold steroids for now.. 3) Diastolic CHF - cont BID Lasix. Cont Metoprolol. May need additional IV Lasix AM. 4) Dementia -Thankfully, she has not required a 1 to 1. - she does has a tendency to sundown and has required 1 to 1 obs in hospital per daughter. -We can provide a mild sedative and low-dose antipsychotic if needed. Cont Donepezil. 5) QT prolongation on EKG - QT was prolonged. -will monitor - She received Levaquin in the ER which we have changed to Doxy. 6) HTN, HPL - cont ARB, Lasix, B marquise 7) A mediastinal mass is seen on CT. This can be followed up in the outpt setting. 8) Her LLE may be developing cellulitis - would reassess daily - she is receiving Doxycycline regardless which should provide adequate coverage.
[2017-05-30 10:10] LABS: CALCIUM 8.2 mg/dl (8.5-10.1); CREATININE 0.67 mg/dl (0.60-1.20); POTASSIUM 3.8 mmol/L (3.5-5.1)
[2017-05-30] MEDS ORDERED: FUROSEMIDE INJ 20 MG in SYRINGE 0 ML IV ONE (16:30)
[2017-05-30] MEDS ORDERED: DILTIAZEM BOLUS / DRIP IV STA (20:19)
[2017-05-30] MEDS ORDERED: DILTIAZEM BOLUS FROM BAG IV ONE (20:30)
[2017-05-30] MEDS: DILTIAZEM HCL INJ 125 MG in DEXTROSE 5% 100ML IV PRN (20:49)
[2017-05-30] MEDS: DONEPEZIL HCL 5 MG TAB PO SCH (20:50)
[2017-05-31] VITALS (11 sets, daily range): BP systolic 95–129; BP diastolic 59–72; PULSE 55–101; TEMP 36.4–36.9; O2SAT 92–99
[2017-05-31] MEDS: DILTIAZEM HCL INJ 125 MG in DEXTROSE 5% 100ML IV PRN (03:17)
[2017-05-31] MEDS: HEPARIN SOD 5000 UNIT/0.5 ML CARP SQ SCH ×3 (05:34→22:04)
[2017-05-31] MEDS: NITROGLYCERIN 2% OINTMENT 30GM TUBE EXT SCH ×3 (05:34→18:00)
[2017-05-31] MEDS: POTASSIUM CHLORIDE 10 MEQ TABCR PO SCH ×2 (07:40→16:26)
[2017-05-31] MEDS: FUROSEMIDE 40 MG TAB PO SCH ×2 (07:41→16:28)
[2017-05-31] MEDS: LOSARTAN POTASSIUM 50 MG TAB PO SCH (07:41)
[2017-05-31] MEDS: METOPROLOL SUCC 25MG EXT REL TAB PO SCH (07:41)
[2017-05-31] MEDS: SERTRALINE HCL 50 MG TAB PO SCH (07:41)
[2017-05-31] MEDS: BUDESONIDE 0.5 MG/2 ML VIAL (PULMICORT) INH SCH (08:00)
--- NOTE | 2017-05-31 09:03 | Progress Note ---
Subjective Date of Service: May 30, 2017. Subjective Pt evaluation today including: conversation w/ patient, physical exam Patient seen on May 30, Patient has severe dementia, and she is unable to provide significant history. Patient reports feeling well and would like to be discharged. As noted above, patient is a poor historian. Problem List Medical Problems: (1) Asthma exacerbation Status: Acute (2) Bilateral pneumonia Status: Acute (3) CHF (congestive heart failure) Status: Acute (4) Congestive heart failure Status: Acute (5) Contusion of right shoulder Status: Acute (6) Facial contusion Status: Acute (7) Fall Status: Acute Review of Systems All Other Systems: Reviewed and Negative Medications Current Inpatient Medications Medications (Trade) Dose Ordered Sig/Bryon Route Start Time Stop Time Status Last Admin Dose Admin Budesonide (Pulmicort Respules 0.5MG/ 2ML Neb Soln) 0.5 mg BIDR INH 05/29/17 08:00 06/28/17 07:59 05/30/17 19:23 0.5 MG Docusate Sodium (coLACE CAP) 100 mg BID PRN PO 05/28/17 22:00 06/27/17 21:59 Donepezil HCl (Aricept Tab) 5 mg HS PO 05/29/17 21:00 06/28/17 20:59 05/30/17 20:50 5 MG Albuterol/ Ipratropium (Duoneb) 1 ml Q6R PRN INH 05/28/17 22:00 06/27/17 21:59 05/29/17 20:54 1 ML Losartan Potassium (coZAAR TAB) 50 mg QAM PO 05/29/17 09:00 06/28/17 08:59 05/31/17 07:41 50 MG Metoprolol Succinate (Toprol Xl Tab) 25 mg QAM PO 05/29/17 09:00 06/28/17 08:59 05/31/17 07:41 25 MG Sertraline HCl (Zoloft Tab) 25 mg DAILY PO 05/29/17 09:00 06/28/17 08:59 05/31/17 07:41 25 MG Miscellaneous Information (Order Awaiting Action) 1 ea QS N/A 05/29/17 00:00 06/28/17 00:00 Heparin Sodium (Porcine) (Heparin Sq 5000 Unit/0.5ml) 5,000 unit Q8 SQ 05/29/17 06:00 06/28/17 05:59 05/31/17 05:34 5,000 UNIT Acetaminophen (Tylenol Tab) 650 mg Q4H PRN PO 05/28/17 22:45 06/27/17 22:44 Al Hydrox/Mg Hydrox/Simethicone (Maalox Max Susp) 15 ml Q4H PRN PO 05/28/17 22:45 06/27/17 22:44 Magnesium Hydroxide (Milk Of Magnesia Susp) 30 ml Q12H PRN PO 05/28/17 22:45 06/27/17 22:44 Ondansetron HCl (Zofran Inj) 4 mg Q6H PRN IV 05/28/17 22:45 06/27/17 22:44 Nitroglycerin (Nitrostat Tab) 0.4 mg UD PRN SL 05/28/17 22:45 06/27/17 22:44 Nitroglycerin (Nitroglycerin 2% Oint) 1 inch Q6 EXT 05/29/17 00:00 06/28/17 00:00 05/31/17 05:34 1 INCH Morphine Sulfate (MoRPHine SULFATE INJ) 2 mg Q30M PRN IV 05/28/17 22:45 06/11/17 22:44 05/29/17 00:31 2 MG Polyethylene (Miralax Powder Packet) 17 gm DAILY PRN PO 05/28/17 22:45 06/27/17 22:44 Lorazepam (Ativan Inj) 0.5 mg Q12H PRN IV 05/28/17 23:30 06/27/17 23:29 05/29/17 00:28 0.5 MG Olanzapine (Zyprexa Zydis Od Tab) 1.25 mg HS PRN PO 05/28/17 23:30 06/27/17 23:29 Doxycycline Hyclate 100 mg/ Dextrose 110 ml @ 50 mls/hr Q12H IV 05/29/17 01:00 06/05/17 00:59 05/30/17 23:41 50 MLS/HR Furosemide (Lasix Tab) 40 mg BID17 PO 05/29/17 09:00 06/28/17 08:59 05/31/17 07:41 40 MG Potassium Chloride (Klor-Con M10) 10 meq BID17 PO 05/29/17 09:00 06/28/17 08:59 05/31/17 07:40 10 MEQ Diltiazem HCl 125 mg/Dextrose 125 ml @ 0 mls/hr Q0M PRN IV 05/30/17 20:30 06/29/17 20:29 05/31/17 03:17 15 MLS/HR Budesonide (Pulmicort Inhaler) 2 puffs BID INH 05/31/17 09:00 06/30/17 08:59 Objective Vital Signs Date Time Temp Pulse Resp B/P (MAP) Pulse Ox O2 Delivery O2 Flow Rate FiO2 05/31/17 07:17 36.9 93 18 115/67 (83) 95 2.0 05/31/17 04:15 Nasal Cannula 3.0 05/31/17 04:07 36.5 101 20 129/72 (91) 92 Nasal Cannula 2.0 05/31/17 00:01 Nasal Cannula 3.0 05/30/17 22:51 36.5 99 19 102/70 (81) 94 Nasal Cannula 2.0 05/30/17 20:50 130 121/80 (94) 05/30/17 20:10 Room Air 05/30/17 19:24 74 20 94 Nasal Cannula 2.0 05/30/17 19:00 36.8 125 24 141/69 (93) 94 Nasal Cannula 3.0 05/30/17 16:15 Room Air 05/30/17 14:54 36.7 64 20 137/81 (99) 97 Nasal Cannula 3.0 05/30/17 12:00 Nasal Cannula 2.0 05/30/17 10:53 36.6 61 20 137/76 (96) 95 Nasal Cannula 3.0 05/30/17 10:23 69 94 05/30/17 09:02 36.7 65 18 127/61 (83) 92 05/30/17 08:53 Nasal Cannula 2.0 Physical Exam Comments: General Appearance: WD/WN, no apparent distress Eyes: normal inspection ENT: normal ENT inspection Neck: supple, no adenopathy Respiratory/Chest: chest non-tender, Expiratory wheeze. Cardiovascular: regular rate, rhythm, no edema Abdomen: normal bowel sounds, non tender, soft Extremities: normal range of motion Neurologic/Psychiatric: alert (oriented x2 to person and place) Skin: normal color Lymphatic: no adenopathy Laboratory Results Last 24 Hours Test 05/30/17 09:17 Sodium Level 135 mmol/L Potassium Level 3.8 mmol/L Chloride Level 100 mmol/L Carbon Dioxide Level 29 mmol/L Anion Gap 6.0 mmol/L Blood Urea Nitrogen 22 mg/dl Creatinine 0.67 mg/dl Est Creatinine Clear Calc Drug Dose 75.2 ml/min Estimated GFR () 92.9 Estimated GFR (Non- 80.2 BUN/Creatinine Ratio 33.0 Random Glucose 91 mg/dl Lactic Acid Level 1.5 mmol/L Calcium Level 8.2 mg/dl Assessment and Plan 87 y/o F Hx HTN, HPL, dementia, chronic diastolic CHF, COPD, morbid obesity. Pt presents with progressive SOB. She had a reported fever of 101 this AM. Her daughter also reports that she has gained 10lbs over the past few weeks. There was no reported CP, N/V, diarrhea or dysuria. She is maintaining an adequate oxygen saturation at the time of admission and was afebrile on arrival to the ER. Initial labs are notable for an elevated Lactic acid. The pt herself was not able to contribute reliably to the HPI due to dementia. Her daughter is present at bedside to provide the preceding information. 1) SOB likely from Bronchitis with some possible component of Diastolic HF Possible Acute on chronic diastolic CHF treated with lasix. - patient has been afebrile during hospital stay -C-x-ray shows some vascular congestion -Ct scan did show some evidence of bronchitis and congestion -Patient is on antibiotics and diuresis. will continue with doxycycline. -Cardio has been consulted as well, agree with above treatment 2) COPD - Pt placed on Duonebs and PRN Albuterol. We will continue to hold steroids for now.. 3) Diastolic CHF - cont BID Lasix. Cont Metoprolol. May need additional IV Lasix AM. 4) Dementia Has requiredd a 1 to 1 as she has become more agitated since last evening. As noted in previous notes, she does have a tendency to sundown. -We can provide a mild sedative and low-dose antipsychotic if needed. Cont Donepezil. 5) QT prolongation on EKG - QT was prolonged. -will monitor - She received Levaquin in the ER which we have changed to Doxy. 6) HTN, HPL - cont ARB, Lasix, B marquise 7) A mediastinal mass is seen on CT. This can be followed up in the outpt setting. 8) Her LLE may be developing cellulitis - would reassess daily - she is receiving Doxycycline regardless which should provide adequate coverage. If patient continues to improve, may consider a discharge tomorrow. Tried contacting daughter with no avail.
[2017-05-31] MEDS: BUDESONIDE 90 MCG INH INH SCH ×2 (11:11→21:59)
--- NOTE | 2017-05-31 11:29 | Cardiology Follow-Up ---
Subjective Date of Service: May 31, 2017. Pt evaluation today including: conversation w/ patient, physical exam, chart review, lab review, review of studies, review of inpatient medication list, conversation w/ attending History of Present Illness this morning the patient was quite confused. She was pleasant but could not answer questions accurately. She was quite forgetful. She cannot remember which she had for breakfast. She cannot recall why she is in the hospital. She often look to the NANOSCIENCE TECHNICIAN for answers. She denied pain. She denies any breathing difficulty. Social History Smoking Status: Never Smoker History of Alcohol Use: No Review of Systems Respiratory: + cough, + wheezing Review systems was obtained but may be unreliable given the patient's notable dementia Objective Vital Signs Past 12 Hours Date Time Temp Pulse Resp B/P (MAP) Pulse Ox O2 Delivery O2 Flow Rate FiO2 05/31/17 10:40 36.4 89 18 96/62 (73) 93 Room Air 05/31/17 08:00 Nasal Cannula 3.0 05/31/17 07:17 36.9 93 18 115/67 (83) 95 2.0 05/31/17 04:15 Nasal Cannula 3.0 05/31/17 04:07 36.5 101 20 129/72 (91) 92 Nasal Cannula 2.0 05/31/17 00:01 Nasal Cannula 3.0 Last Recorded Weight-Kilograms: 118.700 Physical Exam She is alert and oriented to person and place. Mood affect appear normal. She answered all questions but some of her answers are clearly incorrect and she is quite forgetful. HEENT: Sclerae are anicteric. Pupils are equal and reactive to light and accommodation. Extraocular movements were intact. Neuro: Cranial nerves intact Neck: Examination of the submandibular region did not reveal any significant lymphadenopathy. Carotids are palpable bilaterally and free of bruits on auscultation. There was no evidence of jugular venous distention. The thyroid was not enlarged. Lungs: She has upper airway congestion. She has some expiratory wheezing. She has normal respiratory effort without use of accessory muscles. There is normal pulmonary excursion. Cardiac: The rhythm was irregular. S1 and S2 were normal. There are no murmurs on examination. The PMI was not markedly displaced on palpation. Abdomen: The abdomen was soft and nontender. Extremities: Patient has bilateral radial pulses that are equal in intensity. There is no evidence cyanosis or clubbing. There was no evidence of significant peripheral edema bilaterally. Skin: There are no rashes noted on examination today. Data Telemetry reviewed: Atrial fibrillation currently with controlled rate Assessment and Plan 1. Shortness of breath: She has no complaints today but clearly has an element of upper airway congestion. I think most her symptoms are likely related more to bronchitis and pulmonary edema. Her renal function appears to be stable. It would seem reasonable continue on her current dose of oral diuretics. 2. Atrial fibrillation: Patient did develop atrial fibrillation yesterday evening. She does not have any overt symptoms. Her rates appear to be well controlled on a diltiazem infusion. She is on daily metoprolol. It would seem reasonable to add diltiazem to her oral regimen and see if we can obtain adequate control. It is very possible she will cycle between atrial fibrillation and sinus rhythm. Based on her risk factors for stroke, she would be advised to start systemic anticoagulation. I think this can be accomplished with an oral regimen of Xarelto 20 milligrams daily. Alternatively Eliquis 5 milligrams twice daily. Her renal function appears to be normal.
[2017-05-31] MEDS: DILTIAZEM HCL 30 MG TAB PO SCH ×2 (12:44→18:23)
[2017-05-31] MEDS: DOXYCYCLINE HYCLATE 100 MG CAP PO SCH ×2 (13:05→22:00)
[2017-05-31] MEDS: ALBUT/IPRATROP 3MG/0.5MG NEB 3 ML VIAL INH PRN (15:50)
[2017-05-31] MEDS ORDERED: NURSING VERBAL MED ORDER ONE (18:15)
[2017-05-31] MEDS ORDERED: BUDESONIDE 90 MCG INH INH SCH (21:00)
[2017-05-31] MEDS: DONEPEZIL HCL 5 MG TAB PO SCH (22:00)
[2017-06-01] VITALS (8 sets, daily range): BP systolic 118–144; BP diastolic 57–75; PULSE 63–67; TEMP 36.4–36.8; O2SAT 92–99
[2017-06-01] MEDS: DILTIAZEM HCL 30 MG TAB PO SCH ×4 (00:07→17:30)
[2017-06-01] MEDS: HEPARIN SOD 5000 UNIT/0.5 ML CARP SQ SCH (05:45)
--- NOTE | 2017-06-01 07:11 | Progress Note ---
Subjective Date of Service: May 31, 2017. Subjective Pt evaluation today including: conversation w/ patient Patient seen on 05-31-17 Patient reports feeling well. She denies any palpitations, nausea, vomiting, diarrhea. Patient overnight went into atrial fibrillation and was placed on cardizem drip. Problem List Medical Problems: (1) Asthma exacerbation Status: Acute (2) Bilateral pneumonia Status: Acute (3) CHF (congestive heart failure) Status: Acute (4) Congestive heart failure Status: Acute (5) Contusion of right shoulder Status: Acute (6) Facial contusion Status: Acute (7) Fall Status: Acute Review of Systems Constitutional: No fever, No chills ENT: No hearing loss Cardiac: No chest pain Abdomen: No pain Musculoskeletal: No joint pain Neurologic: No memory loss Psychiatric: No depression symptoms Heme: No abnormal bleeding/bruising Endo: No fatigue Skin: No rash All Other Systems: Reviewed and Negative Medications Current Inpatient Medications Medications (Trade) Dose Ordered Sig/Bryon Route Start Time Stop Time Status Last Admin Dose Admin Docusate Sodium (coLACE CAP) 100 mg BID PRN PO 05/28/17 22:00 06/27/17 21:59 Donepezil HCl (Aricept Tab) 5 mg HS PO 05/29/17 21:00 06/28/17 20:59 05/31/17 22:00 5 MG Albuterol/ Ipratropium (Duoneb) 1 ml Q6R PRN INH 05/28/17 22:00 06/27/17 21:59 05/31/17 15:50 1 ML Losartan Potassium (coZAAR TAB) 50 mg QAM PO 05/29/17 09:00 06/28/17 08:59 06/01/17 08:07 50 MG Metoprolol Succinate (Toprol Xl Tab) 25 mg QAM PO 05/29/17 09:00 06/28/17 08:59 06/01/17 08:08 25 MG Sertraline HCl (Zoloft Tab) 25 mg DAILY PO 05/29/17 09:00 06/28/17 08:59 06/01/17 08:07 25 MG Miscellaneous Information (Order Awaiting Action) 1 ea QS N/A 05/29/17 00:00 06/28/17 00:00 Acetaminophen (Tylenol Tab) 650 mg Q4H PRN PO 05/28/17 22:45 06/27/17 22:44 Al Hydrox/Mg Hydrox/Simethicone (Maalox Max Susp) 15 ml Q4H PRN PO 05/28/17 22:45 06/27/17 22:44 Magnesium Hydroxide (Milk Of Magnesia Susp) 30 ml Q12H PRN PO 05/28/17 22:45 06/27/17 22:44 Ondansetron HCl (Zofran Inj) 4 mg Q6H PRN IV 05/28/17 22:45 06/27/17 22:44 Nitroglycerin (Nitrostat Tab) 0.4 mg UD PRN SL 05/28/17 22:45 06/27/17 22:44 Morphine Sulfate (MoRPHine SULFATE INJ) 2 mg Q30M PRN IV 05/28/17 22:45 06/11/17 22:44 05/29/17 00:31 2 MG Polyethylene (Miralax Powder Packet) 17 gm DAILY PRN PO 05/28/17 22:45 06/27/17 22:44 Lorazepam (Ativan Inj) 0.5 mg Q12H PRN IV 05/28/17 23:30 06/27/17 23:29 05/29/17 00:28 0.5 MG Olanzapine (Zyprexa Zydis Od Tab) 1.25 mg HS PRN PO 05/28/17 23:30 06/27/17 23:29 Furosemide (Lasix Tab) 40 mg BID17 PO 05/29/17 09:00 06/28/17 08:59 06/01/17 08:08 40 MG Potassium Chloride (Klor-Con M10) 10 meq BID17 PO 05/29/17 09:00 06/28/17 08:59 06/01/17 08:08 10 MEQ Budesonide (Pulmicort Inhaler) 2 puffs BID INH 05/31/17 09:00 06/30/17 08:59 06/01/17 08:08 2 PUFFS Diltiazem HCl (Cardizem Tab) 30 mg Q6 PO 05/31/17 12:00 06/30/17 11:59 06/01/17 12:28 30 MG Doxycycline Hyclate (Vibramycin Cap) 100 mg BID PO 05/31/17 12:40 06/05/17 12:39 06/01/17 08:07 100 MG Rivaroxaban (Xarelto Tab) 20 mg QDD PO 06/01/17 17:00 07/01/17 16:59 Objective Vital Signs Date Time Temp Pulse Resp B/P (MAP) Pulse Ox O2 Delivery O2 Flow Rate FiO2 06/01/17 05:16 36.4 63 20 144/75 (98) 92 Nasal Cannula 2.0 135/72 (93) 06/01/17 04:00 Nasal Cannula 2.0 06/01/17 00:06 67 118/73 (88) 06/01/17 00:00 Nasal Cannula 2.0 05/31/17 22:59 36.9 63 20 98/64 (75) 95 Nasal Cannula 2.0 05/31/17 20:39 36.8 56 20 99 2.0 05/31/17 19:51 36.8 56 20 100/59 (73) 99 Nasal Cannula 2.0 05/31/17 18:17 60 107/69 (82) 96 Nasal Cannula 2.0 05/31/17 16:15 Nasal Cannula 2.0 05/31/17 16:00 94 Nasal Cannula 2.0 05/31/17 15:52 78 20 94 Nasal Cannula 2.0 05/31/17 15:27 36.8 55 20 95/61 (72) 95 Nasal Cannula 2.0 05/31/17 13:50 Nasal Cannula 3.0 05/31/17 12:00 Nasal Cannula 3.0 05/31/17 11:53 36.7 95 20 110/63 (79) 94 Room Air 05/31/17 10:40 36.4 89 18 96/62 (73) 93 Room Air 05/31/17 08:00 Nasal Cannula 3.0 05/31/17 07:17 36.9 93 18 115/67 (83) 95 2.0 Physical Exam Comments: General Appearance: WD/WN, no apparent distress Eyes: normal inspection ENT: normal ENT inspection Neck: supple, no adenopathy Respiratory/Chest: chest non-tender, clear. Cardiovascular: irregulalary irregular, rhythm, no edema Abdomen: normal bowel sounds, non tender, soft Extremities: normal range of motion Neurologic/Psychiatric: alert (oriented x2 to person and place) Skin: normal color Lymphatic: no adenopathy Assessment and Plan 87 y/o F Hx HTN, HPL, dementia, chronic diastolic CHF, COPD, morbid obesity. Pt presents with progressive SOB. She had a reported fever of 101 this AM. Her daughter also reports that she has gained 10lbs over the past few weeks. There was no reported CP, N/V, diarrhea or dysuria. She is maintaining an adequate oxygen saturation at the time of admission and was afebrile on arrival to the ER. Initial labs are notable for an elevated Lactic acid. The pt herself was not able to contribute reliably to the HPI due to dementia. Her daughter is present at bedside to provide the preceding information. 1) SOB likely from Bronchitis with some possible component of Diastolic HF Possible Acute on chronic diastolic CHF treated with lasix. - patient has been afebrile during hospital stay -C-x-ray shows some vascular congestion -Ct scan did show some evidence of bronchitis and congestion -Patient is on antibiotics and diuresis. will continue with doxycycline. -Cardio has been consulted as well, agree with above treatment 2) New onset a. fib Likely paroxysmal. Patient was placed on cardizem, and will be converted to PO cardizem 30mg PO Q6H 3) COPD - Pt placed on Duonebs and PRN Albuterol. We will continue to hold steroids for now.. 4) Diastolic CHF - cont BID Lasix. Cont Metoprolol. May need additional IV Lasix AM. 5) Dementia Has intermittently required a 1 to 1. As noted in previous notes, she does have a tendency to sundown. -We can provide a mild sedative and low-dose antipsychotic if needed. Cont Donepezil. 6) QT prolongation on EKG - QT was prolonged. -will monitor - She received Levaquin in the ER which we have changed to Doxy. 7) HTN, HPL - cont ARB, Lasix, B marquise 8) A mediastinal mass is seen on CT. This can be followed up in the outpt setting. 9) Her LLE may be developing cellulitis - appears to be improving. will monitor . Continued [facility] stay due to: other (minotor response to diltiazem before discharging)
[2017-06-01] MEDS: SERTRALINE HCL 50 MG TAB PO SCH (08:07)
[2017-06-01] MEDS: DOXYCYCLINE HYCLATE 100 MG CAP PO SCH (08:07)
[2017-06-01] MEDS: LOSARTAN POTASSIUM 50 MG TAB PO SCH (08:07)
[2017-06-01] MEDS: FUROSEMIDE 40 MG TAB PO SCH ×2 (08:08→17:31)
[2017-06-01] MEDS: METOPROLOL SUCC 25MG EXT REL TAB PO SCH (08:08)
[2017-06-01] MEDS: BUDESONIDE 90 MCG INH INH SCH (08:08)
[2017-06-01] MEDS: POTASSIUM CHLORIDE 10 MEQ TABCR PO SCH ×2 (08:08→17:31)
[2017-06-01] MEDS ORDERED: XRL20 PO (15:43)
[2017-06-01] MEDS ORDERED: CRD30 PO (15:43)
[2017-06-01] MEDS ORDERED: POTA10CA28 PO (15:43)
[2017-06-01] MEDS ORDERED: DXY100 PO (15:43)
--- NOTE | 2017-06-01 15:47 | Discharge Instructions ---
Discharge Instructions Date of Service Jun 01, 2017. Admission Reason for Admission: Chf Exacerbation, Fever Discharge Discharge Diagnosis / Problem: Congestive heart failure exacerbation with atrial fibrillation Discharge Goals Goal(s): Decrease discomfort, Improve function Activity Recommendations Activity Limitations: as noted below Lifting Limitations: gradually increase as tolerated . Instructions / Follow-Up Instructions / Follow-Up Followup with PCP in 1-2 weeks Current Hospital Diet Patient's current hospital diet: AHA Diet (Heart Healthy) Discharge Diet Recommended Diet: AHA Diet (Heart Healthy) Pending Studies Studies pending at discharge: no Medical Emergencies . Who to Call and When: Medical Emergencies: If at any time you feel your situation is an emergency, please call 911 immediately. . Non-Emergent Contact Non-Emergency issues call your: Primary Care Provider Call Non-Emergent contact if: you have any medication questions . . "Provider Documentation" section prepared by Jason Barnes. . VTE Core Measure Inpt VTE Proph given/why not?: Unfractionated heparin SQ
[2017-06-01] MEDS ORDERED: RIVAROXABAN 20 MG TAB PO SCH (17:00)
--- NOTE | 2017-06-10 23:02 | Discharge Summary ---
Discharge Summary Date of Service Jun 01, 2017. Discharge Summary Admission Date: May 28, 2017 at 22:49 Discharge Date: Jun 01, 2017 Discharge Disposition: Personal care Principal Diagnosis: SOB secondary to bronchitis and CHF. Problems/Secondary Diagnoses: as noted in hospital course Immunizations: Have You Had Influenza Vaccine: Yes Influenza Vaccine Date: Feb 21, 2013 History of Tetanus Vaccine?: Unknown History of Pneumococcal: Yes History of Hepatitis B Vaccine: Unknown Consultations: Cardio Medication Reconciliation New Medications: Diltiazem HCl (Diltiazem HCl) 30 Mg Tab 30 MG PO Q6 for 30 Days, #120 TAB Doxycycline Hyclate (Doxycycline Hyclate) 100 Mg Cap 100 MG PO BID for 5 Days, #10 CAP 0 Refills Take 1 capsule PO BID Potassium Chloride (Micro-K Ext Rel) 10 Meq Capcr 10 MEQ PO DAILY for 30 Days, #60 TAB 1 Refill Rivaroxaban (Xarelto) 20 Mg Tab 20 MG PO QDD for 30 Days, #30 TAB 1 Refill Continued Medications: Acetaminophen Tab (Tylenol) 325 Mg Tab 650 MG PO Q4 PRN for Mild Pain MAX 3GM APAP/24HR Budesonide (Pulmicort Respules 0.5MG/2ML) 0.5 Mg/2 Ml Nebu 2 ML INH BID Docusate Sodium (Colace) 100 Mg Cap 100 MG PO BID PRN for Constipation Donepezil Hydrochloride (Donepezil Hcl) 5 Mg Tab 5 MG PO HS, TAB Fluticasone Furoate-Vilanterol (Breo Ellipta 200-25 Mcg/INH) 1 Inh Inh 1 PUFF INH DAILY Furosemide (Lasix) 40 Mg Tab 40 MG PO BID for EDEMA, TAB Ipratropium-Albuterol (Duoneb) 3 Ml Nebu 1 TREATMENT INH Q6 PRN for SOB/Wheezing Losartan Potassium (Cozaar) 50 Mg Tab 50 MG PO QAM, TAB Metoprolol Succinate (Toprol Xl) 25 Mg Tabcr 25 MG PO QAM, TAB Polyethylene Glycol 3350 (Miralax) 1 Pow Pow 17 GM PO QAM PRN for Constipation, GM Sertraline (Zoloft) 25 Mg Tab 25 MG PO DAILY, TAB Discharge Exam Review of Systems Constitutional: No fever, No chills ENT: No hearing loss Cardiac: No chest pain Abdomen: No pain Musculoskeletal: No joint pain Neurologic: No memory loss Psychiatric: No depression symptoms Heme: No abnormal bleeding/bruising Endo: No fatigue Skin: No rash All Other Systems: Reviewed and Negative Physical Exam Comments: General Appearance: WD/WN, no apparent distress Eyes: normal inspection ENT: normal ENT inspection Neck: supple, no adenopathy Respiratory/Chest: chest non-tender, clear. Cardiovascular: irregulalary irregular, rhythm, no edema Abdomen: normal bowel sounds, non tender, soft Extremities: normal range of motion Neurologic/Psychiatric: alert (oriented x2 to person and place) Skin: normal color Lymphatic: no adenopathy Hospital Course 87 y/o F Hx HTN, HPL, dementia, chronic diastolic CHF, COPD, morbid obesity. Pt presents with progressive SOB. She had a reported fever of 101 this AM. Her daughter also reports that she has gained 10lbs over the past few weeks. There was no reported CP, N/V, diarrhea or dysuria. She is maintaining an adequate oxygen saturation at the time of admission and was afebrile on arrival to the ER. Initial labs are notable for an elevated Lactic acid. The pt herself was not able to contribute reliably to the HPI due to dementia. Her daughter is present at bedside to provide the preceding information. 1) SOB likely from Bronchitis with some possible component of Diastolic HF Possible Acute on chronic diastolic CHF treated with lasix. - patient has been afebrile during hospital stay -C-x-ray shows some vascular congestion -Ct scan did show some evidence of bronchitis and congestion -Patient is on antibiotics and diuresis. will continue with doxycycline. -Cardio has been consulted as well, agree with above treatment 2) New onset a. fib Likely paroxysmal. Patient was placed on cardizem, and will be converted to PO cardizem 30mg PO Q6H. due to elevated risk of stroke, will be placed on xarelto Patient's daughter was updated. 3) COPD - Pt placed on Duonebs and PRN Albuterol. We will continue to hold steroids for now.. 4) Diastolic CHF - cont BID Lasix. Cont Metoprolol. M 5) Dementia Has intermittently required a 1 to 1. As noted in previous notes, she does have a tendency to sundown. -We can provide a mild sedative and low-dose antipsychotic if needed. Cont Donepezil. 6) QT prolongation on EKG - QT was prolonged. -will monitor - She received Levaquin in the ER which we have changed to Doxy. 7) HTN, HPL - cont ARB, Lasix, B marquise 8) A mediastinal mass is seen on CT. This can be followed up in the outpt setting. 9) Her LLE may be developing cellulitis - appears to be improving. will monitor . Total Time Spent: Greater than 30 minutes This includes examination of the patient, discharge planning, medication reconciliation, and communication with other providers. Discharge Instructions Please refer to the electronic Patient Visit Report (Discharge Instructions) for additional information. Follow-Up as noted in discharge instructions
== END 2017-06-01 19:43 | disposition home or self-care (01) | DRG 292 ==
LOC: EDBD 19:37 → C.EDB 19:39 → C.2T 22:49 → ENRESERV 22:59 → C.MED 05-31 21:42
PROVIDERS: ADMIT Internal Medicine; ATTEND Internal Medicine Sports Medicine
DX: I50.33 Acute on chronic diastolic (congestive) heart failure (principal); J45.901 Unspecified asthma with (acute) exacerbation; Z68.42 Body mass index [BMI] 45.0-49.9, adult; G30.9 Alzheimer's disease, unspecified; J44.9 Chronic obstructive pulmonary disease, unspecified; I11.0 Hypertensive heart disease with heart failure; F02.80 Dementia in other diseases classified elsewhere, unspecified severity, without behavioral disturbance, psychotic disturbance, mood disturbance, and anxiety; E66.01 Morbid (severe) obesity due to excess calories; I45.81 Long QT syndrome; Z66 Do not resuscitate; I48.0 Paroxysmal atrial fibrillation; Z87.01 Personal history of pneumonia (recurrent)

== ENCOUNTER → 2017-06-19 | Outpatient (CLI) | payer OTHER, BC ==
[~2017-06-19] MED LIST changes: +AMOX875T PO; +CRD30 PO; +DXY100 PO; +FURO80TA63 PO; +POTA10CA28 PO; +PRED20TA PO; +TRAM-10 PO; +XRL20 PO
--- NOTE | 2017-06-19 13:22 | DIAGNOSTIC IMAGING REPORT ---
TWO VIEW CHEST CLINICAL HISTORY: Congestive heart failure. FINDINGS: PA and lateral chest radiographs are compared to chest x-ray and chest CT dated 05/28/2017. The PA view is degraded by patient rotation. The cardiomediastinal heart is enlarged and there is atherosclerotic calcification of the thoracic aorta. There is pulmonary vascular congestion. Chronic interstitial thickening is similar to previous. There is no airspace consolidation or large pleural effusion. There is no pneumothorax. The skeletal structures are osteopenic. A moderate compression deformity is noted in the upper lumbar spine. Degenerative change and hyperkyphosis are seen in the thoracic spine. IMPRESSION: 1. Cardiomegaly with evidence of mild congestive failure. 2. No airspace consolidation or pleural effusion is identified. Electronically signed by: Arie Greenberg M.D. 06/19/2017 1:20 PM Dictated Date/Time: 06/19/2017 1:19 PM
[2017-06-19 14:54] LABS: BASO % 0.5 %; BASO ABS # 0.04 K/uL (0-0.2); EOS % 2.2 %; EOS ABS # 0.18 K/uL (0-0.5); HEMOGLOBIN 13.5 g/dL (12.0-16.0); IG# 0.05 K/uL (0.00-0.02); LYMPH % 20.5 %; LYMPH ABS # 1.69 K/uL (1.2-3.4); MEAN CELL VOLUME 98.4 fL (80-100); MEAN CORPUSCULAR HEMOGLOBIN 31.6 pg (25-34); MEAN CORPUSCULAR HGB CONC 32.1 g/dl (32-36); MEAN PLATELET VOLUME 10.6 fL (7.4-10.4); MONO % 10.9 %; NEUT % 65.3 %; NEUT ABS # 5.39 K/uL (1.4-6.5); PLATELET COUNT 193 K/uL (130-400); RED CELL DISTRIBUTION WIDTH CV 14.4 % (11.5-14.5); RED CELL DISTRIBUTION WIDTH SD 51.4 fL (36.4-46.3); WHITE BLOOD COUNT 8.25 K/uL (4.8-10.8)
[2017-06-19 15:11] LABS: BLOOD UREA NITROGEN 11 mg/dl (7-18); CALCIUM 9.1 mg/dl (8.5-10.1); CARBON DIOXIDE 27 mmol/L (21-32); CREATININE 0.74 mg/dl (0.60-1.20); GLUCOSE 81 mg/dl (70-99); POTASSIUM 4.1 mmol/L (3.5-5.1); SODIUM 135 mmol/L (136-145)
== END | disposition home or self-care (01) ==
LOC: C.RAD 12:00
PROVIDERS: ATTEND Family Medicine
DX: I50.30 Unspecified diastolic (congestive) heart failure (principal)

== ENCOUNTER 2017-06-21 07:45 | Emergency (ER) | payer OTHER, BC ==
[~2017-06-21] VITALS: Ht 167.6 cm; Wt 129.4 kg
[~2017-06-21 07:45] MED LIST changes: -AMOX875T PO; -FURO80TA63 PO; -PRED20TA PO; -TRAM-10 PO
[2017-06-21 07:52] VITALS: TEMP 37; Ht 167.6 cm; Wt 129.4 kg
[2017-06-21] MEDS ORDERED: XYLOCAINE 1%/SOD BICARB 20 ML VIAL INFIL STA (07:54)
--- NOTE | 2017-06-21 07:57 | EMERGENCY ROOM VISIT NOTE ---
History Report prepared by Radha: Jordy Rayo Under the Supervision of: Dr. Travis Bruno M.D. First contact with patient: 07:51 Chief Complaint: FACIAL PAIN/INJURY Stated Complaint: FALL/ FACIAL INJURY, LAC History of Present Illness The patient is an 87 year old female with a history of dementia who presents to the Emergency Room via EMS from [facility] with complaints of a sudden mechanical fall that occurred prior to arrival this morning. Per EMS, the patient was found on the floor by the staff at [facility], and the patient has a resulting forehead laceration and laceration on her nose. The patient also cut her left lip, and she has been complaining of left knee pain. The patient does know where she is currently. She states that she fell coming out of the shower. History limited secondary to patient's dementia. Source of History: patient History Limited By: dementia Onset: [employer] this morning Position: other (global) Symptom Intensity: found on ground by skilled nursing staff Quality: other (mechanical fall) Timing: other (sudden) Note: Associated symptoms: Left knee pain. Laceration to forehead and nose. Review of Systems ROS limited secondary to patient's dementia. Past Medical & Surgical Medical Problems: (1) Alzheimers disease (2) Asthma (3) CHF (congestive heart failure) (4) CHF exacerbation (5) Fever (6) Heart disease (7) High cholesterol (8) Hypertension (9) PNA (pneumonia) Surgical Problems: (1) H/O hernia repair Family History Heart disease Hypertension Social History Smoking Status: Never Smoker Alcohol Use: none Drug Use: none Marital Status: Housing Status: skilled nursing Occupation Status: retired Current/Historical Medications Scheduled Amoxicillin & Pot Clavulanate (Augmentin 875-125 mg), 1 TAB PO BID Budesonide (Pulmicort Respules 0.5MG/2ML), 2 ML INH BID Diltiazem HCl (Diltiazem HCl), 30 MG PO Q6 Donepezil Hydrochloride (Donepezil Hcl), 5 MG PO HS Fluticasone Furoate-Vilanterol (Breo Ellipta 200-25 Mcg/INH), 1 PUFF INH DAILY Furosemide (Lasix), 40 MG PO QPM Furosemide (Lasix), 80 MG PO QAM Losartan Potassium (Cozaar), 50 MG PO QAM Metoprolol Succinate (Toprol Xl), 25 MG PO QAM Potassium Chloride (Micro-K Ext Rel), 10 MEQ PO DAILY Prednisone (Prednisone), 40 MG PO DIRECTED Rivaroxaban (Xarelto), 20 MG PO QDD Sertraline (Zoloft), 25 MG PO DAILY Scheduled PRN Acetaminophen Tab (Tylenol), 650 MG PO Q4 PRN for Mild Pain Docusate Sodium (Colace), 100 MG PO BID PRN for Constipation Ipratropium-Albuterol (Duoneb), 1 TREATMENT INH Q6 PRN for SOB/Wheezing Polyethylene Glycol 3350 (Miralax), 17 GM PO QAM PRN for Constipation Tramadol (Ultram), 1-2 TABS PO Q6 PRN for Pain Allergies Coded Allergies: No Known Allergies (Unverified , 06/21/17) Physical Exam Vital Signs Date Time Temp Pulse Resp B/P (MAP) Pulse Ox O2 Delivery O2 Flow Rate FiO2 06/21/17 10:22 90 20 96/70 98 06/21/17 09:42 78 20 96/70 94 Room Air 06/21/17 07:52 37.0 22 107/65 96 Room Air Physical Exam GENERAL: Awake, alert, well-appearing, in no acute distress HENT: 2, 2.6 cm lacerations to the forehead and bridge of nose. Oropharynx unremarkable. EYES: Normal conjunctiva. Sclera non-icteric. NECK: Supple. No nuchal rigidity. FROM. No JVD. RESPIRATORY: Clear to auscultation. CARDIAC: Regular rate, normal rhythm. Extremities warm and well perfused. Pulses equal. ABDOMEN: Soft, non-distended. No tenderness to palpation. No rebound or guarding. No masses. RECTAL: Deferred. MUSCULOSKELETAL: Chest examination reveals no tenderness. The back is symmetrical on inspection without obvious abnormality. There is no CVA tenderness to palpation. No joint edema. LOWER EXTREMITIES: Calves are equal size bilaterally and non-tender. No edema. No discoloration. NEURO: Normal sensorium. No sensory or motor deficits noted. SKIN: No rash or jaundice noted. Medical Decision & Procedures ER Provider Diagnostic Interpretation: Radiology results as stated below per my review and radiologist interpretation: FACIAL BONES-MXILLOFAC WITHOUT CT DOSE: HISTORY: Trauma. Pain. Pt c/o fall TECHNIQUE: Multiaxial CT images of the maxillofacial region were performed and reformatted in the coronal plane without the use of contrast. A dose lowering technique was utilized adhering to the principles of ALARA. COMPARISON: None. FINDINGS: Fracture nasal bones. All remaining osseous structures appear intact. Maxillary spine is intact. Major sinuses are grossly clear. There is moderate hypertrophic change of the nasal turbinates. Orbital margins are intact. Globes are symmetric. IMPRESSION: Fracture nasal bones. Edematous change in nasal turbinates. The above report was generated using voice recognition software. It may contain grammatical, syntax or spelling errors. Electronically signed by: Tommy Heart M.D. 06/21/2017 8:53 AM Dictated Date/Time: 06/21/2017 8:[address] CT DOSE: 855.20 mGy.cm HISTORY: Head injury. Pt c/o fall TECHNIQUE: Multiaxial CT images of the head were performed without the use of intravenous contrast. Automated exposure control was utilized for this study. A dose lowering technique was utilized adhering to the principles of ALARA. Comparison: Head CT 01/16/2017. Findings: Displaced nasal bone fractures. The paranasal sinuses and mastoid air cells are clear. Nasal soft tissue swelling. The calvarium and skull base are intact. There is no mass, hematoma, midline shift, acute infarct. White matter hypodensity is nonspecific but suggestive of microvascular ischemic change. The ventricles and sulci demonstrate mild age-related involutional changes. Impression: No acute intracranial abnormality. Atrophy and microvascular ischemic changes. Displaced nasal bone fractures. Electronically signed by: Jordon Espinal M.D. 06/21/2017 8:50 AM Dictated Date/Time: 06/21/2017 8:44 AM PELVIS 1 OR 2 VIEW ROUTINE CLINICAL HISTORY: Pt c/o left knee pain. Pelvic pain status post fall. COMPARISON STUDY: None. FINDINGS: No fracture or dislocation within the pelvis or hips. The sacrum appears intact. Chronic calcifications adjacent to the greater trochanters. IMPRESSION: No fracture or dislocation within the pelvis or hips. Electronically signed by: Jordon Espinal M.D. 06/21/2017 9:33 AM Dictated Date/Time: 06/21/2017 9:16 AM L KNEE 1 OR 2 VIEWS ROUTINE CLINICAL HISTORY: Pt c/o left knee pain pain COMPARISON: None. DISCUSSION: Moderate degenerative change medial joint compartment. No significant joint effusion. No evidence for fracture. Prepatellar soft tissue edema. IMPRESSION: Prepatellar soft tissue edema. Degenerative change. No acute bony abnormality. The above report was generated using voice recognition software. It may contain grammatical, syntax or spelling errors. Electronically signed by: Tommy Heart M.D. 06/21/2017 9:16 AM Dictated Date/Time: 06/21/2017 9:16 AM L FEMUR 2 VIEWS ROUTINE CLINICAL HISTORY: Pt c/o left knee pain pain COMPARISON: None. DISCUSSION: The bones and joint spaces appear intact. There is no evidence of fracture, dislocation or bony disease. There is no evidence for soft tissue swelling. IMPRESSION: Negative study. The above report was generated using voice recognition software. It may contain grammatical, syntax or spelling errors. Electronically signed by: Tommy Heart M.D. 06/21/2017 9:15 AM Dictated Date/Time: 06/21/2017 9:14 AM Medications Administered Medications (Trade) Dose Ordered Sig/Bryon Route Start Time Stop Time Status Last Admin Dose Admin Lidocaine HCl (Buffered Lidocaine 1% Inj) 20 ml ONE STAT INFIL 06/21/17 07:54 06/21/17 07:56 DC 06/21/17 08:07 20 ML Amoxicillin/ Clavulanate Potassium (Augmentin Tab) 875 mg ONE ONCE PO 06/21/17 09:00 06/21/17 09:01 DC 06/21/17 09:40 875 MG Ondansetron HCl (Zofran Odt) 4 mg ONE STAT PO 06/21/17 08:59 06/21/17 09:00 DC 06/21/17 09:40 4 MG Tramadol HCl (Ultram Tab) 50 mg NOW STAT PO 06/21/17 10:04 06/21/17 10:05 DC 06/21/17 10:14 50 MG Procedure Location: Forehead. Total length: 2.6 cm Complexity: Simple Verbal consent was obtained after the risks and benefits were explained, including but not limited to bleeding, scarring, infection, pain, and bone/joint /nerve damage. At this time, the risks of the procedure are less than the risks of NOT performing the procedure. A time out was taken and the correct patient and site identified. The skin was prepped with betadine. The target area was anesthetized with 500 cc's normal saline. Copious irrigation was performed using normal saline. The skin was re-prepped with betadine and a sterile field set. The wound was explored for foreign bodies and none found. Examination revealed no injury to deep structures such as tendons, bone, or significant blood vessels. Debridement was not performed. The wound edges were approximated using 5, 5-0 simple interrupted nylon sutures. Hemostasis and excellent approximation was achieved. Antibacterial ointment and a sterile dressing applied. Detailed wound care instructions and signs and symptoms of infection reviewed with the patient and daughter. No complications and the patient tolerated the procedure well. Location: Bridge of nose. Total length: 2.6 cm Complexity: Simple Verbal consent was obtained after the risks and benefits were explained, including but not limited to bleeding, scarring, infection, pain, and bone/joint /nerve damage. At this time, the risks of the procedure are less than the risks of NOT performing the procedure. A time out was taken and the correct patient and site identified. The skin was prepped with betadine. The target area was anesthetized with 500 cc's normal saline. Copious irrigation was performed using normal saline. The skin was re-prepped with betadine and a sterile field set. The wound was explored for foreign bodies and none found. Examination revealed no injury to deep structures such as tendons, bone, or significant blood vessels. Debridement was not performed. The wound edges were approximated using 5, 5-0 simple interrupted nylon sutures. Hemostasis and excellent approximation was achieved. Antibacterial ointment and a sterile dressing applied. Detailed wound care instructions and signs and symptoms of infection reviewed with the patient and daughter. No complications and the patient tolerated the procedure well. ED Course 0753: Past medical records reviewed. The patient was evaluated in room B11B. A limited history and physical examination was performed. 0754: Buffered Lidocaine 1% Inj 20 ml INFIL. 0859: Zofran Odt 4 mg PO. 0900: Augmentin Tab 875 mg PO. 0903: I reevaluated the patient and updated her daughter. 1000: Upon reexamination the patient is feeling better. I discussed results and treatment plan with the patient and her daughter. They verbalize agreement and understanding. The patient is ready for discharge. 1004: Ultram Tab 50 mg PO. Medical Decision Differential diagnosis: Etiologies such as fracture, dislocation, intra-abdominal, pneumothorax, intrathoracic , intracranial, neurologic, as well as other traumatic pathologies were entertained. This is an 87-year-old female who presents emergency department complaining of 2 lacerations to her face. These were repaired as above. Patient was sent for a CAT scan of her head and face. I will note that she has 2 nasal bone fractures and for this reason will be placed on Augmentin. I recommended that the patient follow-up with orthopedics as she has no bone fractures. Sutures were removed in 7-10 days. In addition I also recommend the patient follow-up with ear nose and throat. Patient was in agreement with the treatment plan. Medication Reconcilliation Current Medication List: was personally reviewed by me Blood Pressure Screening Patient's blood pressure: Normal blood pressure Impression Primary Impression: Facial laceration Additional Impressions: Knee pain, left Fall Scribe Attestation The scribe's documentation has been prepared under my direction and personally reviewed by me in its entirety. I confirm that the note above accurately reflects all work, treatment, procedures, and medical decision making performed by me. Departure Information Dispostion Home / Self-Care Prescriptions Amoxicillin & Pot Clavulanate (Augmentin 875-125 mg) 1 Tab Tab 1 TAB PO BID for 10 Days, #20 TAB Prov: Travis Bruno MD 06/21/17 Tramadol (Ultram) 50 Mg Tab 1-2 TABS PO Q6 Y for Pain, #14 TAB Prov: Travis Bruno MD 06/21/17 Referrals Kiara Lewis MD (PCP) Geoffrey Alcantara M.D. Martin, James S., M.D. Patient Instructions ED Fx Nasal Conf W X Ray, ED Laceration Facial Sutr Tape, Knee Pain, My [facility] Additional Instructions Follow up with Dr Alcantara's office for nose Sutures out in 7-10 days Follow up with DR Ramos's office for knee You have been examined and treated today on an emergency basis only. This is not a substitute for, or an effort to provide, complete comprehensive medical care. It is impossible to recognize and treat all injuries or illnesses in a single emergency department visit. It is therefore important that you follow up closely with Dr Lewis. Call as soon as possible for an appointment. Thank you for your time and consideration. I look forward to speaking with you again soon. Please don't hesitate to call us if you have any questions. Problem Qualifiers Primary Impression: Facial laceration Encounter type: initial encounter Qualified Codes: S01.81XA - Laceration without foreign body of other part of head, initial encounter Additional Impressions: Knee pain, left Chronicity: acute Qualified Codes: M25.562 - Pain in left knee Fall Encounter type: initial encounter Qualified Codes: W19.XXXA - Unspecified fall, initial encounter
[2017-06-21] MEDS ORDERED: FURO80TA63 PO (08:44)
[2017-06-21] MEDS ORDERED: PRED20TA PO (08:50)
--- NOTE | 2017-06-21 08:52 | DIAGNOSTIC IMAGING REPORT ---
HEAD CT NONCONTRAST CT DOSE: 855.20 mGy.cm HISTORY: Head injury. Pt c/o fall TECHNIQUE: Multiaxial CT images of the head were performed without the use of intravenous contrast. Automated exposure control was utilized for this study. A dose lowering technique was utilized adhering to the principles of ALARA. Comparison: Head CT 01/16/2017. Findings: Displaced nasal bone fractures. The paranasal sinuses and mastoid air cells are clear. Nasal soft tissue swelling. The calvarium and skull base are intact. There is no mass, hematoma, midline shift, acute infarct. White matter hypodensity is nonspecific but suggestive of microvascular ischemic change. The ventricles and sulci demonstrate mild age-related involutional changes. Impression: No acute intracranial abnormality. Atrophy and microvascular ischemic changes. Displaced nasal bone fractures. Electronically signed by: Jordon Espinal M.D. 06/21/2017 8:50 AM Dictated Date/Time: 06/21/2017 8:44 AM
--- NOTE | 2017-06-21 08:54 | DIAGNOSTIC IMAGING REPORT ---
FACIAL BONES-MXILLOFAC WITHOUT CT DOSE: HISTORY: Trauma. Pain. Pt c/o fall TECHNIQUE: Multiaxial CT images of the maxillofacial region were performed and reformatted in the coronal plane without the use of contrast. A dose lowering technique was utilized adhering to the principles of ALARA. COMPARISON: None. FINDINGS: Fracture nasal bones. All remaining osseous structures appear intact. Maxillary spine is intact. Major sinuses are grossly clear. There is moderate hypertrophic change of the nasal turbinates. Orbital margins are intact. Globes are symmetric. IMPRESSION: Fracture nasal bones. Edematous change in nasal turbinates. The above report was generated using voice recognition software. It may contain grammatical, syntax or spelling errors. Electronically signed by: Tommy Heart M.D. 06/21/2017 8:53 AM Dictated Date/Time: 06/21/2017 8:47 AM
[2017-06-21] MEDS ORDERED: ONDANSETRON 4MG OD TAB PO STA (08:59)
[2017-06-21] MEDS ORDERED: AMOXICILLIN/CLAVULANATE TAB 875 MG TAB PO ONE (09:00)
--- NOTE | 2017-06-21 09:16 | DIAGNOSTIC IMAGING REPORT ---
L FEMUR 2 VIEWS ROUTINE CLINICAL HISTORY: Pt c/o left knee pain pain COMPARISON: None. DISCUSSION: The bones and joint spaces appear intact. There is no evidence of fracture, dislocation or bony disease. There is no evidence for soft tissue swelling. IMPRESSION: Negative study. The above report was generated using voice recognition software. It may contain grammatical, syntax or spelling errors. Electronically signed by: Tommy Heart M.D. 06/21/2017 9:15 AM Dictated Date/Time: 06/21/2017 9:14 AM
--- NOTE | 2017-06-21 09:18 | DIAGNOSTIC IMAGING REPORT ---
L KNEE 1 OR 2 VIEWS ROUTINE CLINICAL HISTORY: Pt c/o left knee pain pain COMPARISON: None. DISCUSSION: Moderate degenerative change medial joint compartment. No significant joint effusion. No evidence for fracture. Prepatellar soft tissue edema. IMPRESSION: Prepatellar soft tissue edema. Degenerative change. No acute bony abnormality. The above report was generated using voice recognition software. It may contain grammatical, syntax or spelling errors. Electronically signed by: Tommy Heart M.D. 06/21/2017 9:16 AM Dictated Date/Time: 06/21/2017 9:16 AM
--- NOTE | 2017-06-21 09:34 | DIAGNOSTIC IMAGING REPORT ---
PELVIS 1 OR 2 VIEW ROUTINE CLINICAL HISTORY: Pt c/o left knee pain. Pelvic pain status post fall. COMPARISON STUDY: None. FINDINGS: No fracture or dislocation within the pelvis or hips. The sacrum appears intact. Chronic calcifications adjacent to the greater trochanters. IMPRESSION: No fracture or dislocation within the pelvis or hips. Electronically signed by: Jordon Espinal M.D. 06/21/2017 9:33 AM Dictated Date/Time: 06/21/2017 9:16 AM
[2017-06-21] MEDS ORDERED: TRAMADOL HCL 50 MG TAB PO STA (10:04)
[2017-06-21] MEDS ORDERED: TRAM-10 PO (10:09)
[2017-06-21] MEDS ORDERED: AMOX875T PO (10:11)
[2017-06-21 10:22] VITALS: BP 96/70; PULSE 90; O2SAT 98
== END 2017-06-21 10:23 | disposition home or self-care (01) ==
LOC: EDBD 07:45 → C.EDB 07:47
DX: S01.81XA Laceration without foreign body of other part of head, initial encounter (principal); S01.21XA Laceration without foreign body of nose, initial encounter; M25.562 Pain in left knee; W19.XXXA Unspecified fall, initial encounter; G30.9 Alzheimer's disease, unspecified; F02.80 Dementia in other diseases classified elsewhere, unspecified severity, without behavioral disturbance, psychotic disturbance, mood disturbance, and anxiety; J45.909 Unspecified asthma, uncomplicated; I11.0 Hypertensive heart disease with heart failure; I50.9 Heart failure, unspecified; E78.00 Pure hypercholesterolemia, unspecified; Z79.01 Long term (current) use of anticoagulants; Z82.49 Family history of ischemic heart disease and other diseases of the circulatory system

== ENCOUNTER → 2017-06-26 | Outpatient (CLI) | payer OTHER, BC ==
[~2017-06-26] MED LIST changes: +AMOX875T PO; -DXY100 PO; +FURO80TA63 PO; +PRED20TA PO; +TRAM-10 PO
[2017-06-26 08:12] LABS: BLOOD UREA NITROGEN 20 mg/dl (7-18); CALCIUM 8.3 mg/dl (8.5-10.1); CARBON DIOXIDE 31 mmol/L (21-32); GLUCOSE 89 mg/dl (70-99); POTASSIUM 3.2 mmol/L (3.5-5.1); SODIUM 136 mmol/L (136-145)
== END | disposition home or self-care (01) ==
LOC: C.LABOUTLO 07:54
PROVIDERS: ATTEND Physician Assistant
DX: I10 Essential (primary) hypertension (principal)

== ENCOUNTER → 2017-06-28 | Outpatient (CLI) | payer OTHER, BC ==
--- NOTE | 2017-06-28 13:54 | DIAGNOSTIC IMAGING REPORT ---
L VENOUS DOPP LOWER EXT UNILAT CLINICAL HISTORY: 87 years-old Female presenting with R60.0,S80.12XA. TECHNIQUE: Real-time grayscale and color and spectral Doppler ultrasound imaging of the veins of the left lower extremity was performed. Compression and augmentation were also utilized. COMPARISON: None. FINDINGS: Left: Common femoral vein: Patent. Greater saphenous vein: Patent. Deep femoral vein: Patent. Femoral vein: Patent. Popliteal vein: Patent. Calf veins: Limited visualization. Other: Hypoechoic 8.6 x 2.7 x 6.8 cm avascular collection immediately deep to the subcutaneous fat. No peripheral hyperemia. This collection is at the level of the left knee. IMPRESSION: 1. No evidence of deep venous thrombosis. 2. 8.6 cm collection at the level of the left knee most consistent with hematoma. Electronically signed by: Eugene Peralta M.D. 06/28/2017 1:53 PM Dictated Date/Time: 06/28/2017 1:51 PM
== END | disposition home or self-care (01) ==
LOC: C.ULTRBC 12:59
PROVIDERS: ATTEND Nurse Practitioner Family
DX: S80.12XA Contusion of left lower leg, initial encounter (principal); X58.XXXA Exposure to other specified factors, initial encounter

== ENCOUNTER → 2017-07-03 | Outpatient (CLI) | payer OTHER, BC ==
[~2017-07-03] MED LIST changes: +BUME2TAB3 PO; +DILT120C68 PO; +DOXY1TAB6 PO; +POTA20TA16 PO; +RIVA1TAB4 PO; +SULF800T23 PO; +ULT/50 PO
[2017-07-03 09:20] LABS: BLOOD UREA NITROGEN 19 mg/dl (7-18); CALCIUM 8.4 mg/dl (8.5-10.1); CARBON DIOXIDE 29 mmol/L (21-32); CREATININE 0.65 mg/dl (0.60-1.20); GLUCOSE 95 mg/dl (70-99); POTASSIUM 3.3 mmol/L (3.5-5.1); SODIUM 138 mmol/L (136-145)
== END ==
LOC: C.LABOUTLO 08:56
PROVIDERS: ATTEND Family Medicine
DX: I10 Essential (primary) hypertension (principal)

== ENCOUNTER → 2017-07-05 | Outpatient (CLI) | payer OTHER, BC ==
[~2017-07-05] MED LIST changes: -DOXY1TAB6 PO
[2017-07-05 09:55] LABS: BLOOD UREA NITROGEN 16 mg/dl (7-18); CALCIUM 8.2 mg/dl (8.5-10.1); CARBON DIOXIDE 29 mmol/L (21-32); CREATININE 0.62 mg/dl (0.60-1.20); GLUCOSE 98 mg/dl (70-99); POTASSIUM 3.5 mmol/L (3.5-5.1); SODIUM 137 mmol/L (136-145)
== END | disposition home or self-care (01) ==
LOC: C.LABOUTLO 09:08
PROVIDERS: ATTEND Physician Assistant
DX: I50.9 Heart failure, unspecified (principal)

== ENCOUNTER → 2017-07-10 | Outpatient (CLI) | payer OTHER, BC ==
[~2017-07-10] MED LIST changes: +DOXY1TAB6 PO
[2017-07-10 08:59] LABS: ALBUMIN 2.9 gm/dl (3.4-5.0); ALT/SGPT 17 U/L (12-78); AST/SGOT 20 U/L (15-37); BLOOD UREA NITROGEN 22 mg/dl (7-18); CALCIUM 8.5 mg/dl (8.5-10.1); CARBON DIOXIDE 27 mmol/L (21-32); CREATININE 0.81 mg/dl (0.60-1.20); GLUCOSE 99 mg/dl (70-99); POTASSIUM 3.7 mmol/L (3.5-5.1); SODIUM 143 mmol/L (136-145)
[2017-07-10 09:01] LABS: ALKALINE PHOSPHATASE 49 U/L (45-117); TOTAL PROTEIN 6.5 gm/dl (6.4-8.2)
== END | disposition home or self-care (01) ==
LOC: C.LABOUTLO 08:19
PROVIDERS: ATTEND Nurse Practitioner Family
DX: L03.116 Cellulitis of left lower limb (principal)

== ENCOUNTER 2017-07-12 14:58 | Inpatient (IN) | payer OTHER, BC ==
[~2017-07-12] VITALS: Ht 154.9 cm; Wt 120.6 kg
[~2017-07-12 14:58] MED LIST changes: -AMOX875T PO; -BUME2TAB3 PO; -DILT120C68 PO; -DOXY1TAB6 PO; -POTA20TA16 PO; -RIVA1TAB4 PO; -SULF800T23 PO; -ULT/50 PO
--- NOTE | 2017-07-12 15:26 | EMERGENCY ROOM VISIT NOTE ---
History First contact with patient: 15:06 Chief Complaint: CARDIAC ASSESSMENT Stated Complaint: AFIB, CELLULITIS OF LEGS, REFERRED Nursing Triage Summary: triage note: pt daughter reports pt had appt with pcp and sent to ed for further eval of a-fib. pt also has bilat leg cellulitis per daughter. History of Present Illness The patient is a 87 year old female who presents to the Emergency Room sent from her PCP for atrial fibrillation with RVR and worsening cellulitis. History primarily obtained from the patient's daughter who is an RN in the Endoscopy suite. She was diagnosed with atrial fibrillation with RVR in May and has been anticoagulated with Xarelto and rate controlled with Lopressor. She recently was in the ED within the last month after a fall causing facial injuries and was placed on Augmentin. She also started to develop cellulitis in the left leg at that time. She completed a course of Augmentin then a course of Keflex x 10 days, and was started on Bactrim 6 days ago. The cellulitis in the left leg continued to remain and now has spread to the Right leg over the last 4 days. She does not have any discharge from the legs. She denies any fevers or chills. She lives at [facility]. She reports she usually ambulates with a walker. Her code status is DNR per her daughter. Review of Systems See HPI for pertinent positives & negatives. A total of 10 systems reviewed and were otherwise negative. Past Medical/Surgical History Medical Problems: (1) A-fib (2) Alzheimers disease (3) Asthma (4) Cellulitis (5) CHF (congestive heart failure) (6) CHF exacerbation (7) Fever (8) Heart disease (9) High cholesterol (10) Hypertension (11) PNA (pneumonia) Surgical Problems: (1) H/O hernia repair Family History Heart disease Hypertension Social History Smoking Status: Never Smoker Alcohol Use: none Drug Use: none Marital Status: Housing Status: [facility] Occupation Status: retired Current/Historical Medications Scheduled Amoxicillin & Pot Clavulanate (Augmentin 875-125 mg), 1 TAB PO BID Budesonide (Pulmicort Respules 0.5MG/2ML), 2 ML INH BID Bumetanide (Bumex), 2 MG PO DAILY Diltiazem Hcl Ext Rel (Tiazac), 120 MG PO DAILY Donepezil Hydrochloride (Donepezil Hcl), 5 MG PO HS Fluticasone Furoate-Vilanterol (Breo Ellipta 200-25 Mcg/INH), 1 PUFF INH DAILY Furosemide (Lasix), 80 MG PO BID Losartan Potassium (Cozaar), 50 MG PO QAM Metoprolol Succinate (Toprol Xl), 25 MG PO QAM Potassium Ext Rel (Klor-Con), 20 MEQ PO TID Prednisone (Prednisone), 40 MG PO DIRECTED Rivaroxaban (Xarelto), 20 MG PO QDD Sertraline (Zoloft), 25 MG PO DAILY Sulfa/Trimethoprim (Bactrim Ds 800MG/160MG), 1 TAB PO BID Scheduled PRN Acetaminophen Tab (Tylenol), 650 MG PO Q4 PRN for Mild Pain Docusate Sodium (Colace), 100 MG PO BID PRN for Constipation Ipratropium-Albuterol (Duoneb), 1 TREATMENT INH Q6 PRN for SOB/Wheezing Polyethylene Glycol 3350 (Miralax), 17 GM PO QAM PRN for Constipation Tramadol Hcl (Ultram), 1-2 TABS PO Q6H PRN for Pain Allergies NKDA Physical Exam Vital Signs Date Time Temp Pulse Resp B/P (MAP) Pulse Ox O2 Delivery O2 Flow Rate FiO2 07/12/17 16:53 68 15 155/124 97 Room Air 07/12/17 15:47 96 Room Air 07/12/17 15:15 66 07/12/17 15:02 36.9 63 22 120/56 98 Physical Exam GENERAL: Awake, alert, well-appearing, in no acute distress HENT: Normocephalic, atraumatic. Oropharynx unremarkable. EYES: Normal conjunctiva. Sclera non-icteric. NECK: Supple. No nuchal rigidity. FROM. No JVD. RESPIRATORY: Clear to auscultation. CARDIAC: Regular rate, normal rhythm. Extremities warm and well perfused. Pulses equal. ABDOMEN: Soft, non-distended. No tenderness to palpation. No rebound or guarding. No masses. RECTAL: Deferred. MUSCULOSKELETAL: Chest examination reveals no tenderness. The back is symmetrical on inspection without obvious abnormality. There is no CVA tenderness to palpation. No joint edema. LOWER EXTREMITIES: Calves are bilaterally edematous. On left leg, there is erythema from knee to ankle with an eschar on lateral leg. No discharge or induration. Nontender. On right leg, mild erythema over R calf circumferentially. Dorsalis pedis intact. NEURO: Normal sensorium. No sensory or motor deficits noted. SKIN: No rash or jaundice noted. Medical Decision & Procedures ER Provider Diagnostic Interpretation: CXR IMPRESSION: 1. Cardiomegaly with volume overload. No branden pulmonary edema. 2. Bibasilar atelectasis may be present. Laboratory Results Test 07/12/17 16:10 07/12/17 16:16 Pro-B-Type Natriuretic Peptide 863 pg/ml (0-1800) Procalcitonin < 0.05 ng/ml (0-0.5) Prothrombin Time 14.7 SECONDS (9.0-12.0) Prothromb Time International Ratio 1.4 (0.9-1.1) Activated Partial Thromboplast Time 34.5 SECONDS (21.0-31.0) Partial Thromboplastin Ratio 1.3 Total Bilirubin 0.4 mg/dl (0.2-1) Aspartate Amino Transf (AST/SGOT) 19 U/L (15-37) Alanine Aminotransferase (ALT/SGPT) 16 U/L (12-78) Alkaline Phosphatase 56 U/L (45-117) Troponin I < 0.015 ng/ml (0-0.045) Total Protein 6.6 gm/dl (6.4-8.2) Albumin 3.0 gm/dl (3.4-5.0) Globulin 3.6 gm/dl (2.5-4.0) Albumin/Globulin Ratio 0.8 (0.9-2) Thyroid Stimulating Hormone (TSH) 2.710 uIu/ml (0.300-4.500) Medications Administered Medications (Trade) Dose Ordered Sig/Bryon Route Start Time Stop Time Status Last Admin Dose Admin Cefepime HCl 1000 mg/Dextrose 111 ml @ 200 mls/hr ONE STAT IV 07/12/17 15:31 07/12/17 16:04 DC 07/12/17 16:53 200 MLS/HR Vancomycin HCl 1500 mg/Sodium Chloride 530 ml @ 200 mls/hr TODAY@1545 ONCE IV 07/12/17 15:45 07/12/17 18:23 DC 07/12/17 17:14 200 MLS/HR ED Course 1510: The patient was evaluated in room B2. A complete history and physical exam was performed. 1531: Ordered Cefepime HCl 1000 mg/Dextrose 111 mL @ 200 mL/hr IV. 1533: Ordered Vancomycin HCl 1500 mg/Sodium Chloride 280 ml @ 125 mls/hr IV. 1630: [facility] Medical Decision 87 yo F who presents with persistent cellulitis - differential includes: sepsis , infection, diabetic foot, atrial fibrillation, abscess, necrotic foot. She was also recently here for a fall resulting in a facial laceration on 06/21/17. The patient had an IV placed and labs drawn. She was apparently in A fib in her PCP's office but was in NSR upon arrival. Her daughter reports the cellulitis has been persistent despite multiple courses of oral antibiotics. We provided IV antibiotics, including Cefepime and Vancomycin, after discussing w/the ED Pharmacist. She will be admitted for continuation of the antibiotics [facility]. Impression Primary Impression: Atrial fibrillation Additional Impression: Bilateral lower leg cellulitis Departure Information Dispostion Being Evaluated By Hospitalist Referrals Eljest (PCP) Patient Instructions My [facility] Problem Qualifiers
[2017-07-12] MEDS ORDERED: CEFEPIME IV 1,000 MG in DEXTROSE 5% 100ML 100 ML IV STA (15:31)
[2017-07-12] MEDS ORDERED: VANCOMYCIN IV 1,500 MG in SODIUM CHLORIDE 0.9% 250ML 250 ML IV STA (15:33)
[2017-07-12] MEDS ORDERED: VANCOMYCIN CONSULT ACTIVE PRN ×2 (15:45→18:15)
[2017-07-12] MEDS ORDERED: VANCOMYCIN IV 1,500 MG in SODIUM CHLORIDE 0.9% 500ML 500 ML IV ONE (15:45)
--- NOTE | 2017-07-12 15:56 | DIAGNOSTIC IMAGING REPORT ---
CHEST ONE VIEW PORTABLE CLINICAL HISTORY: 87 years-old Female presenting with a fib w/rvr . TECHNIQUE: Portable upright AP view of the chest was obtained. COMPARISON: 06/19/2017 and 05/28/2017. FINDINGS: Atherosclerosis of aortic arch. Cardiac silhouette enlarged. Pulmonary vascular prominence. Mildly decreased aeration of the lung bases. Trace left effusion not excluded. No large pneumothorax. Chronic deformity of the left humerus. Upper abdomen normal. IMPRESSION: 1. Cardiomegaly with volume overload. No branden pulmonary edema. 2. Bibasilar atelectasis may be present. Electronically signed by: Eugene Peralta M.D. 07/12/2017 3:54 PM Dictated Date/Time: 07/12/2017 3:52 PM
[2017-07-12 16:27] LABS: BASO % 0.6 %; BASO ABS # 0.05 K/uL (0-0.2); EOS ABS # 0.55 K/uL (0-0.5); HEMATOCRIT 32.7 % (37-47); HEMOGLOBIN 10.4 g/dL (12.0-16.0); IG# 0.03 K/uL (0.00-0.02); LYMPH % 17.8 %; MEAN CELL VOLUME 98.2 fL (80-100); MEAN CORPUSCULAR HEMOGLOBIN 31.2 pg (25-34); MEAN CORPUSCULAR HGB CONC 31.8 g/dl (32-36); MEAN PLATELET VOLUME 9.5 fL (7.4-10.4); MONO ABS # 0.71 K/uL (0.11-0.59); NEUT % 65.2 %; NEUT ABS # 5.13 K/uL (1.4-6.5); PLATELET COUNT 247 K/uL (130-400); RED CELL DISTRIBUTION WIDTH CV 14.9 % (11.5-14.5); RED CELL DISTRIBUTION WIDTH SD 53.6 fL (36.4-46.3); WHITE BLOOD COUNT 7.87 K/uL (4.8-10.8)
[2017-07-12 16:39] LABS: INR 1.4 (0.9-1.1); PTT PATIENT 34.5 SECONDS (21.0-31.0)
[2017-07-12 16:57] LABS: ALT/SGPT 16 U/L (12-78); BLOOD UREA NITROGEN 25 mg/dl (7-18); CALCIUM 8.5 mg/dl (8.5-10.1); CARBON DIOXIDE 29 mmol/L (21-32); CREATININE 1.01 mg/dl (0.60-1.20); GLUCOSE 101 mg/dl (70-99); POTASSIUM 4.5 mmol/L (3.5-5.1); SODIUM 140 mmol/L (136-145)
[2017-07-12 17:08] LABS: ALKALINE PHOSPHATASE 56 U/L (45-117); AST/SGOT 19 U/L (15-37); TOTAL PROTEIN 6.6 gm/dl (6.4-8.2)
[2017-07-12] MEDS ORDERED: DILT120C68 PO (17:26)
[2017-07-12] MEDS ORDERED: RIVA1TAB4 PO (17:26)
[2017-07-12] MEDS ORDERED: FURO80TA63 PO (17:26)
[2017-07-12] MEDS ORDERED: BUME2TAB3 PO (17:26)
[2017-07-12] MEDS ORDERED: SULF800T23 PO (17:26)
[2017-07-12] MEDS ORDERED: ULT/50 PO (17:26)
[2017-07-12] MEDS ORDERED: POTA20TA16 PO (17:26)
[2017-07-12] MEDS ORDERED: AMOX875T PO (17:28)
--- NOTE | 2017-07-12 17:41 | EMERGENCY ROOM VISIT NOTE ---
History Report prepared by Radha: Ceferino Mcdermott Under the Supervision of: Dr. Diogo Davalos M.D. First contact with patient: 15:05 Chief Complaint: CARDIAC ASSESSMENT Stated Complaint: AFIB, CELLULITIS OF LEGS, REFERRED Nursing Triage Summary: triage note: pt daughter reports pt had appt with pcp and sent to ed for further eval of a-fib. pt also has bilat leg cellulitis per daughter. History of Present Illness The patient is a 87 year old female who presents to the Emergency Room with complaints of worsening bilateral leg infections beginning about a month ago. She is a resident at [facility]. Her infection began on the left side, but moved to the right three days ago. The patient has been on Augmentin, followed by Keflex, and finally Bactrim for her infections, but nothing has improved her symptoms. She denies chest pain, SOB, vomiting,or fevers. She was seen at her PCP's office for her symptoms and was found to be in A-fib with RVR. The patient was diagnosed with A-fib about a month ago, and was started on Xarelto. The A-fib has been intermittent and rate controlled since it was first diagnosed. Source of History: patient Onset: About a month ago Position: leg (bilateral) Quality: other (infections) Timing: worsening Modifying Factors (Relieving): other (none) Associated Symptoms: No fevers, No chest pain, No SOB, No vomiting Review of Systems See HPI for pertinent positives & negatives. A total of 10 systems reviewed and were otherwise negative. Past Medical & Surgical Medical Problems: (1) A-fib (2) Alzheimers disease (3) Asthma (4) CHF (congestive heart failure) (5) CHF exacerbation (6) Fever (7) Heart disease (8) High cholesterol (9) Hypertension (10) PNA (pneumonia) Surgical Problems: (1) H/O hernia repair Family History Heart disease Hypertension Social History Smoking Status: Never Smoker Alcohol Use: none Drug Use: none Marital Status: Housing Status: care home Occupation Status: retired Current/Historical Medications Scheduled Amoxicillin & Pot Clavulanate (Augmentin 875-125 mg), 1 TAB PO BID Budesonide (Pulmicort Respules 0.5MG/2ML), 2 ML INH BID Bumetanide (Bumex), 2 MG PO DAILY Diltiazem Hcl Ext Rel (Tiazac), 120 MG PO DAILY Donepezil Hydrochloride (Donepezil Hcl), 5 MG PO HS Fluticasone Furoate-Vilanterol (Breo Ellipta 200-25 Mcg/INH), 1 PUFF INH DAILY Furosemide (Lasix), 80 MG PO QAM Furosemide (Lasix), 80 MG PO BID Losartan Potassium (Cozaar), 50 MG PO QAM Metoprolol Succinate (Toprol Xl), 25 MG PO QAM Potassium Chloride (Micro-K Ext Rel), 10 MEQ PO DAILY Potassium Ext Rel (Klor-Con), 20 MEQ PO BID Prednisone (Prednisone), 40 MG PO DIRECTED Rivaroxaban (Xarelto), 20 MG PO QDD Sertraline (Zoloft), 25 MG PO DAILY Sulfa/Trimethoprim (Bactrim Ds 800MG/160MG), 1 TAB PO BID Scheduled PRN Acetaminophen Tab (Tylenol), 650 MG PO Q4 PRN for Mild Pain Docusate Sodium (Colace), 100 MG PO BID PRN for Constipation Ipratropium-Albuterol (Duoneb), 1 TREATMENT INH Q6 PRN for SOB/Wheezing Polyethylene Glycol 3350 (Miralax), 17 GM PO QAM PRN for Constipation Tramadol Hcl (Ultram), 1-2 TABS PO Q6H PRN for Pain Allergies Coded Allergies: No Known Allergies (Unverified , 07/12/17) Physical Exam Vital Signs Date Time Temp Pulse Resp B/P (MAP) Pulse Ox O2 Delivery O2 Flow Rate FiO2 07/12/17 16:53 68 15 155/124 97 Room Air 07/12/17 15:47 96 Room Air 07/12/17 15:15 66 07/12/17 15:02 36.9 63 22 120/56 98 Physical Exam Constitutional: Vital signs reviewed. Eyes: Pupils are equal round reactive to light. Conjunctiva are noninjected. ENT: Pharynx is clear without erythema or exudate. Mucous membranes are moist. Neck supple without meningeal signs. Respiratory: Clear to auscultation bilaterally. Breath sounds are equal bilaterally. Cardiovascular: Regular rate and rhythm. No rubs or gallops. GI: Soft, nondistended and nontender. Bowel sounds are present. Musculoskeletal: Left knee with 2 cm black eschar with cellulitis extending down to the ankle. Increased warmth and tenderness. Right leg has lower leg erythema without significant increase in warmth or tenderness. Integumentary: No cyanosis. Neurological: The patient is awake and alert. No focal deficits. Psychiatric: Normal affect. Medical Decision & Procedures ER Provider Diagnostic Interpretation: Radiology results as stated below per my review and the radiologist's interpretation: CHEST ONE VIEW PORTABLE FINDINGS: Atherosclerosis of aortic arch. Cardiac silhouette enlarged. Pulmonary vascular prominence. Mildly decreased aeration of the lung bases. Trace left effusion not excluded. No large pneumothorax. Chronic deformity of the left humerus. Upper abdomen normal. IMPRESSION: 1. Cardiomegaly with volume overload. No branden pulmonary edema. 2. Bibasilar atelectasis may be present. Electronically signed by: Eugene Peralta M.D. 07/12/2017 3:54 PM Laboratory Results 07/12/17 16:16 Red Blood Count 3.33, Mean Corpuscular Volume 98.2, Mean Corpuscular Hemoglobin 31.2, Mean Corpuscular Hemoglobin Concent 31.8, Mean Platelet Volume 9.5, Neutrophils (%) (Auto) 65.2, Lymphocytes (%) (Auto) 17.8, Monocytes (%) (Auto) 9.0, Eosinophils (%) (Auto) 7.0, Basophils (%) (Auto) 0.6, Neutrophils # (Auto) 5.13, Lymphocytes # (Auto) 1.40, Monocytes # (Auto) 0.71, Eosinophils # (Auto) 0.55, Basophils # (Auto) 0.05 07/12/17 16:16 Test 07/12/17 16:16 White Blood Count 7.87 K/uL (4.8-10.8) Red Blood Count 3.33 M/uL (4.2-5.4) Hemoglobin 10.4 g/dL (12.0-16.0) Hematocrit 32.7 % (37-47) Mean Corpuscular Volume 98.2 fL (80-100) Mean Corpuscular Hemoglobin 31.2 pg (25-34) Mean Corpuscular Hemoglobin Concent 31.8 g/dl (32-36) Platelet Count 247 K/uL (130-400) Mean Platelet Volume 9.5 fL (7.4-10.4) Neutrophils (%) (Auto) 65.2 % Lymphocytes (%) (Auto) 17.8 % Monocytes (%) (Auto) 9.0 % Eosinophils (%) (Auto) 7.0 % Basophils (%) (Auto) 0.6 % Neutrophils # (Auto) 5.13 K/uL (1.4-6.5) Lymphocytes # (Auto) 1.40 K/uL (1.2-3.4) Monocytes # (Auto) 0.71 K/uL (0.11-0.59) Eosinophils # (Auto) 0.55 K/uL (0-0.5) Basophils # (Auto) 0.05 K/uL (0-0.2) RDW Standard Deviation 53.6 fL (36.4-46.3) RDW Coefficient of Variation 14.9 % (11.5-14.5) Immature Granulocyte % (Auto) 0.4 % Immature Granulocyte # (Auto) 0.03 K/uL (0.00-0.02) Prothrombin Time 14.7 SECONDS (9.0-12.0) Prothromb Time International Ratio 1.4 (0.9-1.1) Activated Partial Thromboplast Time 34.5 SECONDS (21.0-31.0) Partial Thromboplastin Ratio 1.3 Anion Gap 4.0 mmol/L (3-11) Est Creatinine Clear Calc Drug Dose 52.3 ml/min Estimated GFR () 58.8 Estimated GFR (Non- 50.7 BUN/Creatinine Ratio 24.6 (10-20) Calcium Level 8.5 mg/dl (8.5-10.1) Total Bilirubin 0.4 mg/dl (0.2-1) Aspartate Amino Transf (AST/SGOT) 19 U/L (15-37) Alanine Aminotransferase (ALT/SGPT) 16 U/L (12-78) Alkaline Phosphatase 56 U/L (45-117) Troponin I < 0.015 ng/ml (0-0.045) Total Protein 6.6 gm/dl (6.4-8.2) Albumin 3.0 gm/dl (3.4-5.0) Globulin 3.6 gm/dl (2.5-4.0) Albumin/Globulin Ratio 0.8 (0.9-2) Thyroid Stimulating Hormone (TSH) 2.710 uIu/ml (0.300-4.500) Laboratory results as reviewed by me. Medications Administered Medications (Trade) Dose Ordered Sig/Bryon Route Start Time Stop Time Status Last Admin Dose Admin Cefepime HCl 1000 mg/Dextrose 111 ml @ 200 mls/hr ONE STAT IV 07/12/17 15:31 07/12/17 16:04 DC 07/12/17 16:53 200 MLS/HR Vancomycin HCl 1500 mg/Sodium Chloride 530 ml @ 200 mls/hr TODAY@1545 ONCE IV 07/12/17 15:45 07/12/17 18:23 07/12/17 17:14 200 MLS/HR ECG Per My Interpretation Indication: tachycardia Rate (beats per minute): 67 Rhythm: normal sinus Findings: other (No PVCs. No ST elevations. ) ED Course 1510: The patient was evaluated in room B2. A complete history and physical exam was performed. 1531: Ordered Cefepime HCl 1000 mg/Dextrose 111 mL @ 200 mL/hr IV. 1533: Ordered Vancomycin HCl 1500 mg/Sodium Chloride 280 ml @ 125 mls/hr IV. Medical Decision Resident Physician Supervision Note: I did evaluate and examine this patient myself. I did guide management for the patient. I agree with the resident's Dr. Pamela Law assessment as discussed. Please see the resident's dictation for further details. This is an 87-year-old female presents with tachycardia and leg swelling and redness. Differential diagnosis includes cellulitis, abscess, MRSA, dysrhythmia , atrial fibrillation. I did perform a limited focused review of portions of the patient's old chart on the electronic medical record. The patient was seen here for facial laceration and fall on June 21. I did evaluate the patient as noted above. The patient apparently had A. fib with RVR at her doctor's office. Currently she has sinus rhythm. She does not feel palpitations when her heart rate goes up. She has no chest pain or shortness of breath. She does have cellulitis to her left leg as well as on the right leg. She has had it for months and failed outpatient treatment with Keflex, Augmentin and Bactrim. We did recommend hospitalization for IV antibiotics. IV access was established. We did treat her with IV cefepime and vancomycin. The patient was placed on a continuous bus monitor. I did order and personally review the patient's 12-lead EKG and chest x-ray as described above. I did order and review the patient's blood work as noted in the electronic medical record. I did discuss the case with the hospitalist service and senior case manager. She was admitted for further evaluation. Medication Reconcilliation Current Medication List: was personally reviewed by me Blood Pressure Screening Patient's blood pressure: Normal blood pressure Blood pressure disposition: Did not require urgent referral Consults Time Called: 1610 Consulting Physician: [facility] Returned Call: 1615 I spoke with Arie Anaya PA-C of [facility]. We discussed the patient and her results. The patient will be further evaluated by [facility]. Impression Primary Impression: Left leg cellulitis Additional Impressions: Cellulitis of right leg Paroxysmal A-fib Failure of outpatient treatment Scribe Attestation The scribe's documentation has been prepared under my direct and personally reviewed by me in its entirety. I confirm that the note above accurately reflects all work, treatment, procedures, and medical decision making performed by me. Departure Information Dispostion Being Evaluated By Hospitalist Referrals [place] (PCP) Patient Instructions My [facility] Problem Qualifiers
[2017-07-12] MEDS ORDERED: ACETAMINOPHEN 325 MG TAB PO PRN (18:30)
[2017-07-12] MEDS ORDERED: TRAMADOL HCL 50 MG TAB PO PRN (18:30)
[2017-07-12] MEDS ORDERED: ALBUT/IPRATROP 3MG/0.5MG NEB 3 ML VIAL INH PRN (18:30)
[2017-07-12] MEDS ORDERED: POLYETHYLENE (MIRALAX) 17 GM PACK PO PRN (18:30)
[2017-07-12] MEDS ORDERED: DOCUSATE SODIUM 100 MG CAP PO PRN (18:30)
--- NOTE | 2017-07-12 18:33 | HISTORY & PHYSICAL EXAMINATION ---
DATE OF ADMISSION: 07/12/2017 HOSPITALIST ADMISSION HISTORY AND PHYSICAL ADMITTING DIAGNOSES: 1. Bilateral leg dermatitis/cellulitis. 2. Paroxysmal atrial fibrillation. HISTORY OF PRESENT ILLNESS: Mrs. Stover is a very pleasant 87-year-old white female with a history of chronic diastolic CHF, LV diastolic dysfunction, longstanding hypertension, chronic leg edema, asthma/emphysema, cerebrovascular disease, dementia, dyslipidemia, and a prior history of pneumonia who presented to her primary care physician's office today for followup of lower extremity cellulitis. The patient had fallen a few weeks ago sustaining an abrasion and a collection of fluid on her left knee. She then developed progressive erythema and warmth of left lower extremity, and had increasing edema. She was placed on Augmentin as an outpatient, followed by a course of Keflex, and last Lenny she was started on Bactrim. Her leg edema and erythema has progressively worsened, now she has erythema of her right lower extremity. The patient denies any fevers, chills, night sweats. Apparently while at her PCP's office, she went into a symptomatic atrial fibrillation. She has been back in a normal sinus rhythm since being in the Emergency Room. The patient is completely asymptomatic with her atrial fibrillation and she is chronically anticoagulated. The patient is currently a resident at [facility]. She does not weigh herself daily, but is supposedly on a low sodium diet. The patient denies any shortness of breath, unusual dyspnea on exertion, orthopnea or PND. She denies any chest pain, heaviness, tightness, pressure, or discomfort. No palpitations or tachypalpitations, syncope, or near syncope. MEDICATIONS: 1. Pulmicort Respules 2 mL inhaled b.i.d. 2. Bumex 2 mg daily. 3. Diltiazem CD 120 mg daily. 4. Augmentin 875 b.i.d. 5. Donepezil hydrochloride 5 mg p.o. at bedtime. 6. Breo Ellipta 200/25 mcg per inhalation 1 puff daily. 7. Losartan 50 mg daily. 8. Toprol-XL 25 mg daily. 9. KCl 20 mEq b.i.d. 10. Xarelto 20 mg daily. 11. Sertraline 25 mg daily. 12. Bactrim-DS 1 tablet p.o. b.i.d. 13. Tylenol p.r.n. 14. Colace p.r.n. 15. DuoNeb nebulizers q. 6 hours p.r.n. 16. MiraLax p.r.n. 17. Tramadol 1-2 tablets every 6 hours as needed for pain. ALLERGIES: NKDA. PAST MEDICAL HISTORY: 1. History of chronic diastolic CHF. 2. Hypertension. 3. Chronic lower extremity edema. 4. LV diastolic dysfunction. 5. Asthma/emphysema. 6. History of cerebral vascular disease. 7. Paroxysmal atrial fibrillation (asymptomatic and chronically anticoagulated). 8. Alzheimer dementia. 9. Hypercholesterolemia. 10. History of pneumonia. 11. History of hernia repair. SOCIAL HISTORY: The patient is a resident at [facility]. She does not use tobacco or tobacco products. FAMILY HISTORY: Noncontributory. PHYSICAL EXAMINATION: VITAL SIGNS: Temperature is 36.9 degrees Celsius, pulse 60 and regular, respiratory rate is 14 and unlabored, blood pressure is 120/60. SPO2 is 97% on room air. GENERAL: The patient is in no acute distress. Lying comfortably flat in the hospital litter. HEENT: Facies symmetric. Some periorbital resolving ecchymosis noted. Otherwise, symmetric. No perioral cyanosis. Mucous membranes moist. NECK: Without thyromegaly, adenopathy or obvious JVD. Jugular venous pressure is difficult to assess due to body habitus. CHEST AND LUNGS: Clear to auscultation throughout all lung byrd, no wheezes, rales or rhonchi. CARDIOVASCULAR: S1 and S2 are regular without obvious murmur, gallop or rub. PMI is nonpalpable. No lifts, heaves, or thrills. No abdominal, aortic or renal bruits. ABDOMEN: Bowel sounds present. No masses, organomegaly or tenderness. EXTREMITIES: Marked erythema of the left lower extremity to the distal thigh. There is a fluctuant collection of the fluid in the anterior knee as well as an abrasion over patella. Legs are nontender, +2 to +3 pitting edema. Right lower extremity is erythematous with +2 pitting edema to the mid tibia. No other open areas noted. Intact radial and dorsalis pedis pulses bilaterally. NEUROLOGIC: The patient is awake, alert, and interactive. Talkative. Speech is clear. Follows commands. Normal movement, bilateral upper and lower extremities. Gait pattern not assessed. DATA: Telemetry monitoring since being in the ER shows a normal sinus rhythm to sinus bradycardia. LABORATORIES: White blood cell count 7.87, hemoglobin 10.4 g/dl, hematocrit 32.7%, and platelet count 247,000. 0.03 immature granulocyte. INR 1.4. Sodium is 140, potassium is 4.5 mmol/L, potassium 25 mg/dL, creatinine 1.01 mg/dL. Random glucose 101 mg/dL. Troponin I is less than 0.015 ng/mL. TSH is normal at 2.710 uiu/mL Blood cultures pending. IMAGING DATA: Chest x-ray shows cardiomegaly with mild pulmonary vascular prominence, no obvious pulmonary edema. Bibasilar atelectasis may be present. ASSESSMENT: 1. Chronic leg edema now with cellulitis/stasis dermatitis. 2. Recent fall with a left anterior knee contusion is likely a prepatellar hematoma. 3. Paroxysmal atrial fibrillation status post conversion to normal sinus rhythm. On chronic anticoagulation. 4. Left ventricular diastolic dysfunction with chronic diastolic congestive heart failure. 5. No overt signs or symptoms of sepsis at this time. PLAN: 1. We will admit this patient to medical floor for more intensive IV antibiotic therapy for cellulitis. IV Ancef and IV Vancomycin ordered. 2. Convert temporarily to IV diuretics in an effort to minimize her edema. 3. Would recommend compression wraps for her legs. 4. Aspiration and culture of fluid collection at the front of the left knee. 5. Continue usual outpatient cardiac regimen. 6. Monitor daily her I&O's, body weights. 7. Check proBNP. Monitor daily labs. 8. Check procalcitonin level. 9. The patient will be admitted to Dr. Rodriguez's service. [facility]
[2017-07-12 19:00] VITALS: Ht 154.9 cm; Wt 120.6 kg
--- NOTE | 2017-07-12 19:12 | Hospitalist Progress Note ---
Hospitalist Progress Note Date of Service Jul 12, 2017. Objective Vital Signs Date Time Temp Pulse Resp B/P (MAP) Pulse Ox O2 Delivery O2 Flow Rate FiO2 07/12/17 18:37 76 24 140/51 95 Room Air 07/12/17 16:53 68 15 155/124 97 Room Air 07/12/17 15:47 96 Room Air 07/12/17 15:15 66 07/12/17 15:02 36.9 63 22 120/56 98 Laboratory Results Last 24 Hours Test 07/12/17 16:16 07/12/17 18:46 White Blood Count 7.87 K/uL Red Blood Count 3.33 M/uL Hemoglobin 10.4 g/dL Hematocrit 32.7 % Mean Corpuscular Volume 98.2 fL Mean Corpuscular Hemoglobin 31.2 pg Mean Corpuscular Hemoglobin Concent 31.8 g/dl Platelet Count 247 K/uL Mean Platelet Volume 9.5 fL Neutrophils (%) (Auto) 65.2 % Lymphocytes (%) (Auto) 17.8 % Monocytes (%) (Auto) 9.0 % Eosinophils (%) (Auto) 7.0 % Basophils (%) (Auto) 0.6 % Neutrophils # (Auto) 5.13 K/uL Lymphocytes # (Auto) 1.40 K/uL Monocytes # (Auto) 0.71 K/uL Eosinophils # (Auto) 0.55 K/uL Basophils # (Auto) 0.05 K/uL RDW Standard Deviation 53.6 fL RDW Coefficient of Variation 14.9 % Immature Granulocyte % (Auto) 0.4 % Immature Granulocyte # (Auto) 0.03 K/uL Prothrombin Time 14.7 SECONDS Prothromb Time International Ratio 1.4 Activated Partial Thromboplast Time 34.5 SECONDS Partial Thromboplastin Ratio 1.3 Sodium Level 140 mmol/L Potassium Level 4.5 mmol/L Chloride Level 108 mmol/L Carbon Dioxide Level 29 mmol/L Anion Gap 4.0 mmol/L Blood Urea Nitrogen 25 mg/dl Creatinine 1.01 mg/dl Est Creatinine Clear Calc Drug Dose 52.3 ml/min Estimated GFR () 58.8 Estimated GFR (Non- 50.7 BUN/Creatinine Ratio 24.6 Random Glucose 101 mg/dl Calcium Level 8.5 mg/dl Total Bilirubin 0.4 mg/dl Aspartate Amino Transf (AST/SGOT) 19 U/L Alanine Aminotransferase (ALT/SGPT) 16 U/L Alkaline Phosphatase 56 U/L Troponin I < 0.015 ng/ml Total Protein 6.6 gm/dl Albumin 3.0 gm/dl Globulin 3.6 gm/dl Albumin/Globulin Ratio 0.8 Thyroid Stimulating Hormone (TSH) 2.710 uIu/ml Assessment and Plan ATTENDING PHYSICIAN ATTESTATION Addendum to H&P authored by Flako Negron PA-C on [place]illo 87/F admitted for observation for cellulitis. In the past she rec'd a course of Augmentin followed by Keflex and finally Bactrim. She will continue IV Abx therapy with Ancef and vancomycin. and continue her diuresis. She is VS are wnl,hemodynamically stable and afebrile. Upon further questioning, she did sustain a mechanical fall several weeks ago. On physical examination, there is a very large hematoma on left knee. - IV ABx - IV diuresis - PT/OT
[2017-07-12 19:31] VITALS: BP 112/70; PULSE 67; TEMP 36.4; O2SAT 94
[2017-07-12] MEDS: FUROSEMIDE INJ 80 MG in SYRINGE 0 ML IV SCH (21:14)
[2017-07-12] MEDS: POTASSIUM CHLORIDE 20 MEQ TABCR PO SCH (21:20)
[2017-07-12] MEDS: DONEPEZIL HCL 5 MG TAB PO SCH (21:20)
[2017-07-12] MEDS: BUDESONIDE 90 MCG INH INH SCH (22:56)
[2017-07-12] MEDS: FLUTICASONE/SALMETEROL 250/50 (ADVAIR) 14 PUFF/1 INHALER INH SCH (22:56)
[2017-07-12 23:05] VITALS: BP 119/78; PULSE 64; TEMP 36.4; O2SAT 98
[2017-07-12] MEDS: VANCOMYCIN IV 1,500 MG in SODIUM CHLORIDE 0.9% 500ML 500 ML IV SCH (23:40)
[2017-07-12] MEDS: CEFAZOLIN IV 1,000 MG in SYRINGE 0 ML IV SCH (23:40)
[2017-07-13 07:33] VITALS: BP 122/67; PULSE 67; TEMP 36.8; O2SAT 95
[2017-07-13] MEDS: CEFAZOLIN IV 1,000 MG in SYRINGE 0 ML IV SCH ×3 (08:00→23:37)
[2017-07-13 08:18] LABS: BASO % 0.6 %; BASO ABS # 0.04 K/uL (0-0.2); EOS % 7.3 %; EOS ABS # 0.47 K/uL (0-0.5); HEMOGLOBIN 10.5 g/dL (12.0-16.0); IG# 0.02 K/uL (0.00-0.02); LYMPH % 19.7 %; LYMPH ABS # 1.26 K/uL (1.2-3.4); MEAN CELL VOLUME 98.3 fL (80-100); MEAN CORPUSCULAR HEMOGLOBIN 30.3 pg (25-34); MEAN CORPUSCULAR HGB CONC 30.9 g/dl (32-36); MONO % 8.9 %; MONO ABS # 0.57 K/uL (0.11-0.59); NEUT % 63.2 %; NEUT ABS # 4.05 K/uL (1.4-6.5); PLATELET COUNT 251 K/uL (130-400); RED CELL DISTRIBUTION WIDTH CV 14.9 % (11.5-14.5); RED CELL DISTRIBUTION WIDTH SD 52.9 fL (36.4-46.3); WHITE BLOOD COUNT 6.41 K/uL (4.8-10.8)
--- NOTE | 2017-07-13 08:20 | Pharmacy Progress Note ---
Pharmacy Abx Initial Consult Date of Service Jul 13, 2017. Pharmacy Dosing Scope Date of Consult: 07/12/17 Consultation requested by: Flako Negron (MAX) Pharmacy is consulted to initiate Vancomycin IV dosing therapy, order appropriate labs and adjust drug dose/frequency. Subjective The patient is a 87 year old female admitted on Jul 12, 2017 at 18:21. Objective Height (Feet): 5 Height (Inches): 1.00 Weight (Kilograms): 123.700 Vital Signs (Past 12Hrs) Vital Signs Past 12 Hours Date Time Temp Pulse Resp B/P (MAP) Pulse Ox O2 Delivery O2 Flow Rate FiO2 07/13/17 07:33 36.8 67 20 122/67 (85) 95 2.0 07/13/17 00:00 Nasal Cannula 2.0 07/12/17 23:05 36.4 64 18 119/78 (92) 98 Nasal Cannula 2.0 Lab Results (24Hrs) Laboratory Tests (24 Hours) Test 07/12/17 16:10 07/12/17 16:16 07/13/17 07:21 Procalcitonin < 0.05 ng/ml (0-0.5) White Blood Count 7.87 K/uL (4.8-10.8) Red Blood Count 3.33 M/uL (4.2-5.4) L Hemoglobin 10.4 g/dL (12.0-16.0) L Hematocrit 32.7 % (37-47) L Mean Corpuscular Volume 98.2 fL (80-100) Mean Corpuscular Hemoglobin 31.2 pg (25-34) Mean Corpuscular Hemoglobin Concent 31.8 g/dl (32-36) L Platelet Count 247 K/uL (130-400) Mean Platelet Volume 9.5 fL (7.4-10.4) Neutrophils (%) (Auto) 65.2 % Lymphocytes (%) (Auto) 17.8 % Monocytes (%) (Auto) 9.0 % Eosinophils (%) (Auto) 7.0 % Basophils (%) (Auto) 0.6 % Neutrophils # (Auto) 5.13 K/uL (1.4-6.5) Lymphocytes # (Auto) 1.40 K/uL (1.2-3.4) Monocytes # (Auto) 0.71 K/uL (0.11-0.59) H Eosinophils # (Auto) 0.55 K/uL (0-0.5) H Basophils # (Auto) 0.05 K/uL (0-0.2) Micro Results Date/Time Source Procedure Growth Status 07/12/17 16:11 Blood Blood Culture Pending Received 07/12/17 16:10 Blood Blood Culture Pending Received 07/12/17 18:30 Joint Fluid/Space (Synovial) Knee Left Gram Stain Pending Ordered 07/12/17 18:30 Joint Fluid/Space (Synovial) Knee Left Bacterial Culture Pending Ordered Risk Factors for Resistance * Resident in a [facility] or extended-care facility - [facility] * Hospitalization for 48 hours or more within the past 90 days - 05/28-06/01 ( asthma exacerbation) * Antimicrobial use within the last 90 days - outpatient Augmentin, Keflex, Bactrim Assessment & Plan Assessment 87 year old female on IV Vancomycin and Ancef (not a consult) for BL dermatitis/ cellulitis. Multiple recent courses of antibiotics * Renal function appears at baseline. Most recent sCr = 0.87 mg/dL with estimated CrCl ~58 mL/min. Estimated pharmacokinetic parameters: * Ke ~0.05/hr, T1/2 ~14 hrs * Patient received Vancomycin 1500mg (~12mg/kg) IV x 1 in the ED as a loading dose on 07/12/17... this is lower than usual recommended loading dose. Therefore , maintenance regimen was started ~7 hours after loading dose to account for this. Please note that the plan below was devised last evening, but [employer] Worker is in agreement with plan. Plan Vancomycin IV * Maintenance dose: 1500 mg IV (12 mg/kg) every 18 hours * Goal trough level for cellulitis : 10 to 15 mcg/mL * Trough level ordered for 07/14 @ 1130 (only prior to 3rd dose and therefore not reflective of steady state, but would like to assess dosing regimen earlier due to patient's age and obesity) * A less than traditional dose and/or extended dosing interval has/have been selected due to likelihood of drug accumulation in obese patient/patient with h/ o CKD. Pharmacy will continue to follow and will adjust dose/frequency as necessary. Thank you.
[2017-07-13] MEDS: FLUTICASONE/SALMETEROL 250/50 (ADVAIR) 14 PUFF/1 INHALER INH SCH ×2 (08:29→20:19)
[2017-07-13] MEDS: DILTIAZEM HCL 120 MG CAPCR PO SCH (08:30)
[2017-07-13] MEDS: SERTRALINE HCL 50 MG TAB PO SCH (08:30)
[2017-07-13] MEDS: LOSARTAN POTASSIUM 50 MG TAB PO SCH (08:30)
[2017-07-13] MEDS: POTASSIUM CHLORIDE 20 MEQ TABCR PO SCH ×2 (08:30→20:21)
[2017-07-13] MEDS: METOPROLOL SUCC 25MG EXT REL TAB PO SCH (08:30)
[2017-07-13] MEDS: FUROSEMIDE INJ 80 MG in SYRINGE 0 ML IV SCH ×2 (08:31→20:20)
[2017-07-13] MEDS: BUDESONIDE 90 MCG INH INH SCH ×2 (08:31→20:20)
[2017-07-13] MEDS: RIVAROXABAN 20 MG TAB PO SCH (08:32)
[2017-07-13 08:57] LABS: CALCIUM 8.3 mg/dl (8.5-10.1); CREATININE 0.87 mg/dl (0.60-1.20)
[2017-07-13 08:58] LABS: POTASSIUM 3.7 mmol/L (3.5-5.1)
--- NOTE | 2017-07-13 11:28 | Progress Note ---
Progress Note Date of Service Jul 13, 2017. Progress Note ID Consult Dictated #[id number] A/P: 1. LLE Cellulitis -Continue emperic abx, follow cultures -Thank you
--- NOTE | 2017-07-13 11:41 | INFECT. DISEASE CONSULTATION ---
DATE OF CONSULTATION: 07/13/2017 HISTORY OF PRESENT ILLNESS: This is an 87-year-old female who was admitted to the hospital from her primary care office for lower extremity cellulitis. She did have a fall and suffered a wound on her left knee. She did have some drainage from that, but she states that has resolved. She was placed on Augmentin and then Keflex and most recently Bactrim, which she has been on for the past week. She did not have significant improvement. She has had worsening erythema and edema and subsequently was sent to the hospital for admission and IV antibiotics. She was placed on Ancef and vancomycin in the ER and she is tolerating these well. A wound culture was obtained and is pending, blood cultures are also pending. She has been afebrile since admission. Her white blood cell count is normal. Her creatinine is normal as well. She denies any pain in the left knee. Overall, she states she feels it is improving. She denies any cough, shortness of breath, chest pain, nausea, vomiting, diarrhea or abdominal pain. She did tolerate her outpatient antibiotics without difficulty. Her remaining review of systems is unremarkable. PAST MEDICAL HISTORY: Significant for congestive heart failure, hypertension, chronic lower extremity edema, asthma, COPD, history of CVA, aFib, dementia, and high cholesterol. PAST SURGICAL HISTORY: Significant for hernia repair. ALLERGIES: She has no known drug allergies. FAMILY HISTORY: Noncontributory. SOCIAL HISTORY: Negative for tobacco use, alcohol use or drug use. CURRENT MEDICATIONS: Include Cardizem, Toprol-XL, Cozaar, Xarelto, Zoloft, Ancef, vancomycin, Aricept, Lasix, potassium, Pulmicort, Advair, DuoNeb, Tylenol, MiraLax, Colace, and Ultram. PHYSICAL EXAMINATION: VITAL SIGNS: She is afebrile, pulse 67, respiratory rate is 20, blood pressure is 122/67, and oxygen saturation is 95% on 2 liters. GENERAL: She is awake, alert and oriented x3. She is out of bed to chair on my examination. HEENT: Mucous membranes are dry. Extraocular muscles are intact. LUNGS: I do not auscultate a murmur. Lungs are clear bilaterally with decreased breath sounds at the bases. ABDOMEN: Soft and nondistended. LOWER EXTREMITIES: There is significant lower extremity edema bilaterally. She does have a gauze pad over her left knee but there is no open wound. There is an old scab on the lateral aspect of her left knee, this is not tender or warm to palpation. LABORATORY STUDIES: CBC today reveals a white blood cell count of 6.4, hemoglobin 10.5, platelets are 251. Chemistry panel reveals a sodium of 141, potassium 3.7, chloride 107, bicarbonate 30, BUN 20, creatinine 0.8, and glucose is 105. LFTs are within normal limits. Wound culture is pending. Blood cultures are pending. IMAGING DATA: A chest x-ray done in the Emergency Room on the shows volume overload. IMPRESSION AND PLAN: Lower extremity cellulitis: She will be continued on empiric antibiotics pending the results of her blood and wound culture. We will follow along with you. Thank you for this consultation.
[2017-07-13] MEDS: VANCOMYCIN IV 1,500 MG in SODIUM CHLORIDE 0.9% 500ML 500 ML IV SCH (18:27)
[2017-07-13 19:05] VITALS: BP 122/80; PULSE 102; TEMP 36.6; O2SAT 92
[2017-07-13] MEDS: DONEPEZIL HCL 5 MG TAB PO SCH (20:21)
--- NOTE | 2017-07-13 22:17 | Progress Note ---
Subjective Date of Service: Jul 13, 2017. Subjective Pt evaluation today including: conversation w/ patient Pleasant 32 yo female who presents to the hospital with cellulitis of her lower extremities. Patient reports feeling better this AM. Patient reports less pain in her lower extremities. Patient denies fever, chills, cough. Problem List Medical Problems: (1) Asthma exacerbation Status: Acute (2) Atrial fibrillation Status: Acute (3) Bilateral lower leg cellulitis Status: Acute (4) Bilateral pneumonia Status: Acute (5) Cellulitis of right leg Status: Acute (6) CHF (congestive heart failure) Status: Acute (7) Congestive heart failure Status: Acute (8) Contusion of right shoulder Status: Acute (9) Facial contusion Status: Acute (10) Facial laceration Status: Acute (11) Failure of outpatient treatment Status: Acute (12) Fall Status: Acute (13) Fall Status: Acute (14) Knee pain, left Status: Acute (15) Left leg cellulitis Status: Acute (16) Paroxysmal A-fib Status: Acute Objective Vital Signs Date Time Temp Pulse Resp B/P (MAP) Pulse Ox O2 Delivery O2 Flow Rate FiO2 07/13/17 19:05 36.6 102 16 122/80 (94) 92 Nasal Cannula 2.0 07/13/17 16:00 Nasal Cannula 2.0 07/13/17 08:00 Nasal Cannula 2.0 07/13/17 07:33 36.8 67 20 122/67 (85) 95 2.0 07/13/17 00:00 Nasal Cannula 2.0 07/12/17 23:05 36.4 64 18 119/78 (92) 98 Nasal Cannula 2.0 Physical Exam Comments: GENERAL: The patient is in no acute distress. Siting comfortably in chair HEENT: Facies symmetric. Mucous membranes moist. NECK: Without thyromegaly, adenopathy or obvious JVD. Jugular venous pressure is difficult to assess due to body habitus. CHEST AND LUNGS: Clear to auscultation throughout all lung byrd, no wheezes, rales or rhonchi. CARDIOVASCULAR: S1 and S2 are regular without obvious murmur, gallop or rub. PMI is nonpalpable. No lifts, heaves, or thrills. No abdominal, aortic or renal bruits. ABDOMEN: Bowel sounds present. No masses, organomegaly or tenderness. EXTREMITIES: Decreased erythema on left lower extremity. No fluctuant collection noted on anterior knee. Scab is noted lateral to the patella. Legs are nontender, +2 to +3 pitting edema. Right lower extremity is erythematous with +2 pitting edema to the mid tibia. No other open areas noted. Intact radial and dorsalis pedis pulses bilaterally. NEUROLOGIC: The patient is awake, alert, and interactive. Talkative. Speech is clear. Follows commands. Normal movement, bilateral upper and lower extremities. Gait pattern not assessed Laboratory Results Last 24 Hours Test 07/13/17 07:21 White Blood Count 6.41 K/uL Red Blood Count 3.46 M/uL Hemoglobin 10.5 g/dL Hematocrit 34.0 % Mean Corpuscular Volume 98.3 fL Mean Corpuscular Hemoglobin 30.3 pg Mean Corpuscular Hemoglobin Concent 30.9 g/dl Platelet Count 251 K/uL Mean Platelet Volume 10.0 fL Neutrophils (%) (Auto) 63.2 % Lymphocytes (%) (Auto) 19.7 % Monocytes (%) (Auto) 8.9 % Eosinophils (%) (Auto) 7.3 % Basophils (%) (Auto) 0.6 % Neutrophils # (Auto) 4.05 K/uL Lymphocytes # (Auto) 1.26 K/uL Monocytes # (Auto) 0.57 K/uL Eosinophils # (Auto) 0.47 K/uL Basophils # (Auto) 0.04 K/uL RDW Standard Deviation 52.9 fL RDW Coefficient of Variation 14.9 % Immature Granulocyte % (Auto) 0.3 % Immature Granulocyte # (Auto) 0.02 K/uL Sodium Level 141 mmol/L Potassium Level 3.7 mmol/L Chloride Level 107 mmol/L Carbon Dioxide Level 30 mmol/L Anion Gap 4.0 mmol/L Blood Urea Nitrogen 20 mg/dl Creatinine 0.87 mg/dl Est Creatinine Clear Calc Drug Dose 58.3 ml/min Estimated GFR () 70.4 Estimated GFR (Non- 60.7 BUN/Creatinine Ratio 22.9 Random Glucose 105 mg/dl Calcium Level 8.3 mg/dl Magnesium Level 2.6 mg/dl Chemistry Specimen Hemolysis Assessment and Plan Cellulitis of lower extremity (left) 1. Admitted patient to medical floor for more intensive IV antibiotic therapy for cellulitis. will continue Vanco and ancef Appreciate ID recommendation Patient cellulitis appears to be resolving. Continue diuretics to decrease swelling will hold off compression stocking today 2. Recent fall with a left anterior knee contusion is likely a prepatellar hematoma. Appears to be resolving. will monitor Awaiting fluid culture 3. Paroxysmal atrial fibrillation status post conversion to normal sinus rhythm. On chronic anticoagulation. will continue 4. Left ventricular diastolic dysfunction with chronic diastolic congestive heart failure. cont. diltiazem and metoprolol cont. losartan 5. Continue usual outpatient cardiac regimen. 6. Monitor daily her I&O's, body weights. 7. Check proBNP. Monitor daily labs. 8. Check procalcitonin level. Continued [facility] stay due to: other Discharge planning: uncertain
[2017-07-13 23:22] VITALS: BP 104/70; PULSE 117; TEMP 36.8; O2SAT 95
[2017-07-14 06:35] LABS: BASO % 0.6 %; BASO ABS # 0.04 K/uL (0-0.2); EOS % 7.9 %; HEMATOCRIT 32.8 % (37-47); HEMOGLOBIN 10.5 g/dL (12.0-16.0); IG# 0.02 K/uL (0.00-0.02); LYMPH % 23.3 %; LYMPH ABS # 1.48 K/uL (1.2-3.4); MEAN CORPUSCULAR HEMOGLOBIN 31.1 pg (25-34); MEAN PLATELET VOLUME 9.7 fL (7.4-10.4); MONO % 10.2 %; MONO ABS # 0.65 K/uL (0.11-0.59); NEUT % 57.7 %; NEUT ABS # 3.67 K/uL (1.4-6.5); PLATELET COUNT 235 K/uL (130-400); RED CELL DISTRIBUTION WIDTH CV 14.6 % (11.5-14.5); RED CELL DISTRIBUTION WIDTH SD 51.9 fL (36.4-46.3); WHITE BLOOD COUNT 6.36 K/uL (4.8-10.8)
[2017-07-14 07:03] VITALS: BP 99/64; PULSE 70; TEMP 36.5; O2SAT 99
[2017-07-14 07:13] LABS: CREATININE 0.71 mg/dl (0.60-1.20); POTASSIUM 3.7 mmol/L (3.5-5.1)
[2017-07-14] MEDS: LOSARTAN POTASSIUM 50 MG TAB PO SCH (07:54)
[2017-07-14] MEDS: METOPROLOL SUCC 25MG EXT REL TAB PO SCH (07:54)
[2017-07-14] MEDS: SERTRALINE HCL 50 MG TAB PO SCH (07:54)
[2017-07-14] MEDS: FLUTICASONE/SALMETEROL 250/50 (ADVAIR) 14 PUFF/1 INHALER INH SCH ×2 (07:55→19:29)
[2017-07-14] MEDS: POTASSIUM CHLORIDE 20 MEQ TABCR PO SCH ×2 (07:55→19:30)
[2017-07-14] MEDS: FUROSEMIDE INJ 80 MG in SYRINGE 0 ML IV SCH ×2 (07:55→19:28)
[2017-07-14] MEDS: RIVAROXABAN 20 MG TAB PO SCH (07:55)
[2017-07-14] MEDS: DILTIAZEM HCL 120 MG CAPCR PO SCH (07:55)
[2017-07-14] MEDS: BUDESONIDE 90 MCG INH INH SCH ×2 (07:56→19:30)
[2017-07-14] MEDS: CEFAZOLIN IV 1,000 MG in SYRINGE 0 ML IV SCH ×3 (07:58→23:48)
[2017-07-14] MEDS ORDERED: VANCOMYCIN TROUGH ONE (11:30)
[2017-07-14] MEDS: VANCOMYCIN IV 1,500 MG in SODIUM CHLORIDE 0.9% 500ML 500 ML IV SCH (11:31)
[2017-07-14 12:07] VITALS: BP 112/73; PULSE 69; TEMP 36.7; O2SAT 97
--- NOTE | 2017-07-14 13:15 | Pharmacy Progress Note ---
Pharmacy Antibiotic Prog Note Date of Service Jul 14, 2017. Subjective The patient is currently receiving VANCOMYCIN 1500mg IV every 18 hours. The patient is currently on day # 3 of VANCOMYCIN/ANCEF IV therapy. Objective Height (Feet): 5 Height (Inches): 1.00 Weight (Kilograms): 120.500 Levels: Item Value Date Time Vancomycin Level Trough 11.2 mcg/ml 07/14/17 1119 Lab Results (24hrs): Test 07/14/17 05:44 07/14/17 11:19 White Blood Count 6.36 K/uL (4.8-10.8) Red Blood Count 3.38 M/uL (4.2-5.4) Hemoglobin 10.5 g/dL (12.0-16.0) Hematocrit 32.8 % (37-47) Mean Corpuscular Volume 97.0 fL (80-100) Mean Corpuscular Hemoglobin 31.1 pg (25-34) Mean Corpuscular Hemoglobin Concent 32.0 g/dl (32-36) Platelet Count 235 K/uL (130-400) Mean Platelet Volume 9.7 fL (7.4-10.4) Neutrophils (%) (Auto) 57.7 % Lymphocytes (%) (Auto) 23.3 % Monocytes (%) (Auto) 10.2 % Eosinophils (%) (Auto) 7.9 % Basophils (%) (Auto) 0.6 % Neutrophils # (Auto) 3.67 K/uL (1.4-6.5) Lymphocytes # (Auto) 1.48 K/uL (1.2-3.4) Monocytes # (Auto) 0.65 K/uL (0.11-0.59) Eosinophils # (Auto) 0.50 K/uL (0-0.5) Basophils # (Auto) 0.04 K/uL (0-0.2) RDW Standard Deviation 51.9 fL (36.4-46.3) RDW Coefficient of Variation 14.6 % (11.5-14.5) Immature Granulocyte % (Auto) 0.3 % Immature Granulocyte # (Auto) 0.02 K/uL (0.00-0.02) Sodium Level 139 mmol/L (136-145) Potassium Level 3.7 mmol/L (3.5-5.1) Chloride Level 104 mmol/L (98-107) Carbon Dioxide Level 30 mmol/L (21-32) Anion Gap 5.0 mmol/L (3-11) Blood Urea Nitrogen 17 mg/dl (7-18) Creatinine 0.71 mg/dl (0.60-1.20) Est Creatinine Clear Calc Drug Dose 70.3 ml/min Estimated GFR () 90.0 Estimated GFR (Non- 77.7 BUN/Creatinine Ratio 23.4 (10-20) Random Glucose 95 mg/dl (70-99) Calcium Level 8.0 mg/dl (8.5-10.1) Magnesium Level 2.5 mg/dl (1.8-2.4) Vancomycin Level Trough 11.2 mcg/ml (SEE COMMENT) Micro Results: * 07/12/17 - Blood Cx x 2 -- NGTD Recent Pertinent Medications * Ancef 1gm IV q8h Assessment & Plan 87yo female receiving VANCOMYCIN and ANCEF for LE cellulitis. Blood cultures currently with no growth. Renal function has improved since admission (SCr 1.0 --> 0.71). VANCOMYCIN: * Patient has been receiving VANCOMYCIN 1500mg (~12.5mg/kg) IV q18h. * Trough level drawn prior to 1200 dose today = 11.2 mcg/mL. * This drug level is Subtherapeutic. * Will change dose to VANCOMYCIN 1750mg (14.5mg/kg) IV every 16 hours. * Goal trough level estimate: between 15 - 20 mcg/mL. * Will recheck another trough level prior to the 1200 dose on 07/16/17. Pharmacy will continue to follow and will adjust dose/frequency as necessary. Thank you
[2017-07-14 14:48] VITALS: O2SAT 98
[2017-07-14 15:16] VITALS: BP 107/68; PULSE 66; TEMP 36.6; O2SAT 96
--- NOTE | 2017-07-14 16:21 | Progress Note ---
Subjective Date of Service: Jul 14, 2017. Subjective Pt evaluation today including: conversation w/ patient, physical exam, chart review, lab review, review of inpatient medication list Voiding: no voiding problems, no incontinence Patient is seen and examined by me. Patient denies chest pain, shortness of breath, dizziness, palpitation or loss of consciousness. Patient does have a left knee pain swelling, erythema and tenderness. Patient denies fever, chills , rigors and sweats. Patient denies abdominal pain, nausea, vomiting and diarrhea. Patient is tolerating antibiotics very well. No acute events were reported by the nurse. Problem List Medical Problems: (1) Asthma exacerbation Status: Acute (2) Atrial fibrillation Status: Acute (3) Bilateral lower leg cellulitis Status: Acute (4) Bilateral pneumonia Status: Acute (5) Cellulitis of right leg Status: Acute (6) CHF (congestive heart failure) Status: Acute (7) Congestive heart failure Status: Acute (8) Contusion of right shoulder Status: Acute (9) Facial contusion Status: Acute (10) Facial laceration Status: Acute (11) Failure of outpatient treatment Status: Acute (12) Fall Status: Acute (13) Fall Status: Acute (14) Knee pain, left Status: Acute (15) Left leg cellulitis Status: Acute (16) Paroxysmal A-fib Status: Acute Review of Systems Musculoskeletal: + joint pain, + swelling (Left knee pain) All Other Systems: Reviewed and Negative Objective Vital Signs Date Time Temp Pulse Resp B/P (MAP) Pulse Ox O2 Delivery O2 Flow Rate FiO2 07/14/17 15:16 36.6 66 20 107/68 (81) 96 Room Air 07/14/17 14:48 98 07/14/17 12:07 36.7 69 18 112/73 (86) 97 Room Air 07/14/17 08:00 Nasal Cannula 2.0 07/14/17 07:03 36.5 70 18 99/64 (76) 99 Nasal Cannula 2.0 07/14/17 00:00 Nasal Cannula 2.0 07/13/17 23:22 36.8 117 20 104/70 (81) 95 Nasal Cannula 2.0 07/13/17 19:05 36.6 102 16 122/80 (94) 92 Nasal Cannula 2.0 Laboratory Results Last 24 Hours Test 07/14/17 05:44 07/14/17 11:19 White Blood Count 6.36 K/uL Red Blood Count 3.38 M/uL Hemoglobin 10.5 g/dL Hematocrit 32.8 % Mean Corpuscular Volume 97.0 fL Mean Corpuscular Hemoglobin 31.1 pg Mean Corpuscular Hemoglobin Concent 32.0 g/dl Platelet Count 235 K/uL Mean Platelet Volume 9.7 fL Neutrophils (%) (Auto) 57.7 % Lymphocytes (%) (Auto) 23.3 % Monocytes (%) (Auto) 10.2 % Eosinophils (%) (Auto) 7.9 % Basophils (%) (Auto) 0.6 % Neutrophils # (Auto) 3.67 K/uL Lymphocytes # (Auto) 1.48 K/uL Monocytes # (Auto) 0.65 K/uL Eosinophils # (Auto) 0.50 K/uL Basophils # (Auto) 0.04 K/uL RDW Standard Deviation 51.9 fL RDW Coefficient of Variation 14.6 % Immature Granulocyte % (Auto) 0.3 % Immature Granulocyte # (Auto) 0.02 K/uL Sodium Level 139 mmol/L Potassium Level 3.7 mmol/L Chloride Level 104 mmol/L Carbon Dioxide Level 30 mmol/L Anion Gap 5.0 mmol/L Blood Urea Nitrogen 17 mg/dl Creatinine 0.71 mg/dl Est Creatinine Clear Calc Drug Dose 70.3 ml/min Estimated GFR () 90.0 Estimated GFR (Non- 77.7 BUN/Creatinine Ratio 23.4 Random Glucose 95 mg/dl Calcium Level 8.0 mg/dl Magnesium Level 2.5 mg/dl Vancomycin Level Trough 11.2 mcg/ml Assessment and Plan Cellulitis of lower extremity (left) improving -- continue Vanco and ancef -- Appreciate ID recommendation --Continue diuretics to decrease swelling Recent fall with a left anterior knee contusion is likely a prepatellar hematoma. -Patient left knee tend to be more swollen, and tender, somehow patient joint aspiration did not make it to the laboratory. -At this time we will get left knee 4 view x-ray. -We will also consult orthopedic for formal evaluation. History of paroxysmal atrial fibrillation -Status post cardioversion -Continue anticoagulation Left ventricular diastolic dysfunction with chronic diastolic congestive heart failure. -Continue diltiazem, Lopressor and losartan. Continued [facility] stay due to: Left knee pain Discharge planning: uncertain Continued [facility] stay due to: multiple IV medications needed, other Discharge planning: uncertain
--- NOTE | 2017-07-14 18:23 | DIAGNOSTIC IMAGING REPORT ---
LEFT KNEE 4 VIEWS CLINICAL HISTORY: Left knee swelling and erythema. FINDINGS: AP, crosstable lateral, internal rotated, and externally rotated views of the left knee are compared to study dated 06/21/2017. The skeletal structures are osteopenic. No fracture is identified. There is mild to moderate tricompartmental degenerative joint space narrowing. Patellar enthesophytes and tiny medial marginal osteophytes are observed. There is no significant joint effusion. Marked prepatellar soft tissue edema is identified. IMPRESSION: 1. Soft tissue edema with no radiographic evidence of left knee fracture. 2. Osteopenia and degenerative change as above. Electronically signed by: Arie Greenberg M.D. 07/14/2017 6:21 PM Dictated Date/Time: 07/14/2017 6:19 PM
[2017-07-14 18:44] VITALS: BP 135/69; PULSE 74; TEMP 36.4; O2SAT 99
[2017-07-14] MEDS: DONEPEZIL HCL 5 MG TAB PO SCH (19:28)
[2017-07-15 00:11] VITALS: BP 110/73; PULSE 109; TEMP 36.6; O2SAT 95
[2017-07-15] MEDS: VANCOMYCIN IV 1,750 MG in SODIUM CHLORIDE 0.9% 500ML 500 ML IV SCH ×2 (04:13→20:39)
[2017-07-15 07:47] VITALS: BP 111/70; PULSE 84; TEMP 36.4; O2SAT 94
[2017-07-15 08:00] VITALS: O2SAT 94
[2017-07-15] MEDS: METOPROLOL SUCC 25MG EXT REL TAB PO SCH (09:36)
[2017-07-15] MEDS: FLUTICASONE/SALMETEROL 250/50 (ADVAIR) 14 PUFF/1 INHALER INH SCH ×2 (09:36→20:37)
[2017-07-15] MEDS: LOSARTAN POTASSIUM 50 MG TAB PO SCH (09:36)
[2017-07-15] MEDS: SERTRALINE HCL 50 MG TAB PO SCH (09:36)
[2017-07-15] MEDS: POTASSIUM CHLORIDE 20 MEQ TABCR PO SCH ×2 (09:37→20:39)
[2017-07-15] MEDS: BUDESONIDE 90 MCG INH INH SCH ×2 (09:37→20:38)
[2017-07-15] MEDS: RIVAROXABAN 20 MG TAB PO SCH (09:37)
[2017-07-15] MEDS: DILTIAZEM HCL 120 MG CAPCR PO SCH (09:38)
[2017-07-15] MEDS: FUROSEMIDE INJ 80 MG in SYRINGE 0 ML IV SCH ×2 (09:38→20:39)
[2017-07-15] MEDS: CEFAZOLIN IV 1,000 MG in SYRINGE 0 ML IV SCH ×2 (09:53→16:24)
[2017-07-15 11:14] VITALS: BP 94/61; PULSE 73; TEMP 36.4; O2SAT 96
--- NOTE | 2017-07-15 11:53 | Progress Note ---
Subjective Date of Service: Jul 15, 2017. Subjective Pt evaluation today including: conversation w/ patient, conversation w/ family , physical exam, chart review, lab review, review of studies Pain: no pain Voiding: no voiding problems, no incontinence Patient still has left knee erythema and swelling, not tender to touch. Pt denies fever, chills, rigors and sweat. x-ray knee shows tissue edema and swelling, ortho was consulted.Pt denies cp,sob, dizziness, palpitation and loss of consciousness. Problem List Medical Problems: (1) Asthma exacerbation Status: Acute (2) Atrial fibrillation Status: Acute (3) Bilateral lower leg cellulitis Status: Acute (4) Bilateral pneumonia Status: Acute (5) Cellulitis of right leg Status: Acute (6) CHF (congestive heart failure) Status: Acute (7) Congestive heart failure Status: Acute (8) Contusion of right shoulder Status: Acute (9) Facial contusion Status: Acute (10) Facial laceration Status: Acute (11) Failure of outpatient treatment Status: Acute (12) Fall Status: Acute (13) Fall Status: Acute (14) Knee pain, left Status: Acute (15) Left leg cellulitis Status: Acute (16) Paroxysmal A-fib Status: Acute Review of Systems All Other Systems: Reviewed and Negative Medications Medications (Trade) Dose Ordered Sig/Bryon Route Start Time Stop Time Status Last Admin Dose Admin Vancomycin HCl 1750 mg/Sodium Chloride 535 ml @ 200 mls/hr Q16H IV 07/15/17 04:00 07/25/17 03:59 07/15/17 04:13 200 MLS/HR Objective Vital Signs Date Time Temp Pulse Resp B/P (MAP) Pulse Ox O2 Delivery O2 Flow Rate FiO2 07/15/17 11:14 36.4 73 20 94/61 (72) 96 Room Air 07/15/17 07:47 36.4 84 20 111/70 (84) 94 Room Air 07/15/17 00:11 36.6 109 20 110/73 (85) 95 2.0 07/15/17 00:00 Nasal Cannula 2.0 07/14/17 20:00 Nasal Cannula 2.0 07/14/17 18:44 36.4 74 20 135/69 (91) 99 Room Air 07/14/17 16:00 Nasal Cannula 2.0 07/14/17 15:16 36.6 66 20 107/68 (81) 96 Room Air 07/14/17 14:48 98 07/14/17 12:07 36.7 69 18 112/73 (86) 97 Room Air Physical Exam General Appearance: no apparent distress, + obese Eyes: EOMI Neck: supple Respiratory/Chest: lungs clear, normal breath sounds, no respiratory distress Cardiovascular: regular rate, rhythm, no murmur, + pertinent finding (erythema on left lower extremity. No fluctuant collection noted on anterior knee.) Extremities: non-tender, no calf tenderness, + pedal edema, + pertinent finding Neurologic/Psychiatric: alert, normal mood/affect Skin: no rash Assessment and Plan Cellulitis of lower extremity (left) improving -- continue Vanco and ancef -- Appreciate ID recommendation --Continue diuretics to decrease swelling Recent fall with a left anterior knee contusion is likely a prepatellar hematoma. -Patient left knee tend to be more swollen, and tender, somehow patient joint aspiration did not make it to the laboratory. -left knee 4 view x-ray. Soft tissue edema with no radiographic evidence of left knee fracture. Osteopenia and degenerative change as above. -orthopedic consult pending History of paroxysmal atrial fibrillation -Status post cardioversion -Continue anticoagulation Left ventricular diastolic dysfunction with chronic diastolic congestive heart failure. -Continue diltiazem, Lopressor and losartan. Continued [facility] stay due to: Left knee pain Discharge planning: uncertain Continued [facility] stay due to: multiple IV medications needed, other Discharge planning: uncertain
--- NOTE | 2017-07-15 12:45 | ORTHOPEDIC CONSULTATION ---
DATE OF CONSULTATION: 07/15/2017 CHIEF COMPLAINT: Bilateral lower extremity cellulitis status post a fall on her left knee. HISTORY OF PRESENT ILLNESS: A 87-year-old white female with multiple medical comorbidities including congestive heart failure, hypertension, chronic lower extremity edema, COPD, cerebrovascular disease, AFib and dementia who was admitted to the hospital with bilateral lower extremity cellulitis. She apparently did have a fall in her left knee a week or so ago. She does not recall that on questioning her today. She was treated for some cellulitis as an outpatient with Augmentin and Keflex and then Bactrim and it did not seem to get better. She was admitted to the hospital for IV antibiotics. We are consulted for evaluation of her left leg, specifically. She denies any leg pain or knee pain. She does not recall the fall. No other complaints. PAST MEDICAL HISTORY: Significant for: 1. Congestive heart failure. 2. Hypertension. 3. Chronic lower extremity edema. 4. Asthma. 5. COPD. 6. History of cerebrovascular disease. 7. AFib on Coumadin. 8. Dementia. 9. Elevated cholesterol. The remainder of the past medical history is per the admission H&P. PHYSICAL EXAMINATION: VITAL SIGNS: Reveal temperature of 36.4. Vital signs stable. GENERAL: Shows a pleasant elderly female. She was sitting up in her bedside chair, looks completely comfortable. EXTREMITIES: Examination of both lower extremities reveals some chronic lower extremity edema and induration, which looks to be chronic. The left side is a bit worse than the right. She does have a scab on the anterior aspect of her left knee. She does appear to have some fluid accumulation or some swelling of the soft tissues anterior to the knee. She moves both knees quite well without any pain. The range of motion is 0-110 limited by her soft tissues. She has no significant knee effusion. Good straight leg raise. X-RAYS: X-rays of the left knee from yesterday were reviewed. It shows that she is a skeletally immature patient. She does have some mild arthritic changes. There looks to be quite a bit of soft tissue swelling in the front of her knee. There is no apparent knee effusion. LABORATORY STUDIES: Her white cell count is normal at 6.38. Her sed rate is elevated at 22 slightly, C-reactive protein elevated 2.23. INR is 1.4. ASSESSMENT: An 87-year-old white female admitted with bilateral lower extremity cellulitis. She did have a fall and has a healing scab on the left knee with some apparent swelling. I did attempt to aspirate this today, but was not able to get any fluid. There are no clinical signs of sepsis in her knee joint or her prepatellar bursa, but she probably has some degree of hematoma and/or prepatellar bursa. It does not look to be actively infected clinically and I could not aspirate any fluid to suggest the need for a surgical debridement. PLAN: I would recommend continued medical management including IV antibiotics and edema control. I do not think she needs any surgical intervention. If she continues to have swelling in the front of the knee, we could attempt to do re-aspiration in a couple days and see if this hematoma liquifies. It is likely just some clotted blood from the fall and the fact that she is on Coumadin. Any orthopedic questions can be directed at [phone]. Just call if she needs reevaluation. There is no surgical indication at this time. Procedure Note; The left knee was cleaned with alcohol and I attempted to aspirate the prepatella bursa with a 16G needle. I was unable to obtain any fluid for analysis. The patient tolerated the procedure well. VALENCIA
[2017-07-15 15:16] VITALS: BP 92/55; PULSE 68; TEMP 36.6; O2SAT 99
[2017-07-15] MEDS: DONEPEZIL HCL 5 MG TAB PO SCH (20:39)
[2017-07-16 00:03] VITALS: BP 138/84; PULSE 74; TEMP 36.4; O2SAT 91
[2017-07-16 07:35] LABS: CREATININE 1.01 mg/dl (0.60-1.20)
[2017-07-16 07:54] VITALS: O2SAT 94
[2017-07-16 08:11] VITALS: BP 135/83; PULSE 71; TEMP 36.3; O2SAT 95
[2017-07-16] MEDS: BUDESONIDE 90 MCG INH INH SCH ×2 (08:20→21:17)
[2017-07-16] MEDS: POTASSIUM CHLORIDE 20 MEQ TABCR PO SCH ×2 (08:20→21:19)
[2017-07-16] MEDS: FLUTICASONE/SALMETEROL 250/50 (ADVAIR) 14 PUFF/1 INHALER INH SCH ×2 (08:20→21:17)
[2017-07-16] MEDS: FUROSEMIDE INJ 80 MG in SYRINGE 0 ML IV SCH ×2 (08:20→21:18)
[2017-07-16] MEDS: METOPROLOL SUCC 25MG EXT REL TAB PO SCH (08:21)
[2017-07-16] MEDS: DILTIAZEM HCL 120 MG CAPCR PO SCH (08:21)
[2017-07-16] MEDS: RIVAROXABAN 20 MG TAB PO SCH (08:21)
[2017-07-16] MEDS: SERTRALINE HCL 50 MG TAB PO SCH (08:21)
[2017-07-16] MEDS: LOSARTAN POTASSIUM 50 MG TAB PO SCH (08:22)
[2017-07-16 09:58] LABS: HEMATOCRIT 32.6 % (37-47); HEMOGLOBIN 10.3 g/dL (12.0-16.0); MEAN CELL VOLUME 98.8 fL (80-100); MEAN CORPUSCULAR HEMOGLOBIN 31.2 pg (25-34); MEAN CORPUSCULAR HGB CONC 31.6 g/dl (32-36); MEAN PLATELET VOLUME 10.1 fL (7.4-10.4); PLATELET COUNT 233 K/uL (130-400)
--- NOTE | 2017-07-16 10:46 | Progress Note ---
Subjective Date of Service: Jul 16, 2017. Subjective oob to chair, resting. still with erythema left leg. ortho eval over weekend, attempted aspiration, unable to obtain fluid. remains on vanco. tolerating well. afebrile. suspected hematoma. no complaints. Problem List Medical Problems: (1) Asthma exacerbation Status: Acute (2) Atrial fibrillation Status: Acute (3) Bilateral lower leg cellulitis Status: Acute (4) Bilateral pneumonia Status: Acute (5) Cellulitis of right leg Status: Acute (6) CHF (congestive heart failure) Status: Acute (7) Congestive heart failure Status: Acute (8) Contusion of right shoulder Status: Acute (9) Facial contusion Status: Acute (10) Facial laceration Status: Acute (11) Failure of outpatient treatment Status: Acute (12) Fall Status: Acute (13) Fall Status: Acute (14) Knee pain, left Status: Acute (15) Left leg cellulitis Status: Acute (16) Paroxysmal A-fib Status: Acute Objective Vital Signs Date Time Temp Pulse Resp B/P (MAP) Pulse Ox O2 Delivery O2 Flow Rate FiO2 07/16/17 08:11 36.3 71 18 135/83 (100) 95 Room Air 07/16/17 07:54 94 Room Air 07/16/17 00:03 36.4 74 18 138/84 (102) 91 Room Air 07/16/17 00:00 Room Air 07/15/17 16:00 Room Air 07/15/17 15:16 36.6 68 20 92/55 (67) 99 Room Air 07/15/17 11:14 36.4 73 20 94/61 (72) 96 Room Air Physical Exam General Appearance: WD/WN Eyes: normal inspection Neck: supple Respiratory/Chest: normal breath sounds Abdomen: soft Extremities: + inflammation, + swelling Neurologic/Psychiatric: alert Skin: normal color Laboratory Results Item Value Date Time Blood Culture - Preliminary Resulted 07/12/17 1611 Blood NO GROWTH TO DATE. Blood Culture - Preliminary Resulted 07/12/17 1610 Blood NO GROWTH TO DATE. Last 24 Hours Test 07/16/17 06:10 07/16/17 06:11 White Blood Count 6.70 K/uL Red Blood Count 3.30 M/uL Hemoglobin 10.3 g/dL Hematocrit 32.6 % Mean Corpuscular Volume 98.8 fL Mean Corpuscular Hemoglobin 31.2 pg Mean Corpuscular Hemoglobin Concent 31.6 g/dl RDW Standard Deviation 54.0 fL RDW Coefficient of Variation 15.0 % Platelet Count 233 K/uL Mean Platelet Volume 10.1 fL Creatinine 1.01 mg/dl Est Creatinine Clear Calc Drug Dose 49.4 ml/min Estimated GFR () 58.8 Estimated GFR (Non- 50.7 Assessment and Plan (1) Cellulitis Assessment & Plan: continue IV abx for now, ? hematoma at knee Continued [facility] stay due to: multiple IV medications needed, other Discharge planning: uncertain
[2017-07-16] MEDS ORDERED: VANCOMYCIN TROUGH ONE (11:30)
[2017-07-16] MEDS: VANCOMYCIN IV 1,750 MG in SODIUM CHLORIDE 0.9% 500ML 500 ML IV SCH (12:08)
--- NOTE | 2017-07-16 13:45 | Pharmacy Progress Note ---
Pharmacy Abx Dose Short Note Date of Service Jul 16, 2017. Assessment & Plan Ms. Stover's trough at [facility] came back supratherapeutic, 24.6 mcg/mL. BC x2 are both NGTD. Will decrease vancomycin dose and increase dosing interval. Pt's habitus strongly indicative of vanco accumulation. Further, renal fxn decreased. Current pt population p'kinetics: t1/2=15hrs, ke=0.0451, Vd=0.6. * Change to Vanco 1500mg (12mg/kg) q18 * Trough ordered for 07/19/17 @1130, this will be at [facility] * Goal trough for cellulitis 12-15mcg/mL Pharmacy will continue to follow and will adjust dose/frequency as necessary. Thank you.
--- NOTE | 2017-07-16 15:53 | Hospitalist Progress Note ---
Hospitalist Progress Note Date of Service Jul 16, 2017. Subjective Pt evaluation today including: conversation w/ patient, physical exam, chart review, lab review, review of inpatient medication list Pain: None PO Intake: Tolerating PO diet Voiding: no voiding problems Patient pleasantly confused, denies any complaints currently. She denies any pain in her legs or left knee and has full range of motion. She is very forgetful and does not remember why she is here. The patient denies fevers, chills, sweats, chest pain, palpitations, claudication, cough, wheezing, shortness of breath, nausea, vomiting, abdominal pain, dysuria, hematuria, urinary retention, paralysis, weakness, numbness and tingling. Additional Comments: See HPI for pertinent positives and negatives. All other systems reviewed and negative. Objective Vital Signs Date Time Temp Pulse Resp B/P (MAP) Pulse Ox O2 Delivery O2 Flow Rate FiO2 07/16/17 08:11 36.3 71 18 135/83 (100) 95 Room Air 07/16/17 07:54 94 Room Air 07/16/17 00:03 36.4 74 18 138/84 (102) 91 Room Air 07/16/17 00:00 Room Air 07/15/17 16:00 Room Air Physical Exam Notes: General appearance: +Morbidly obese. Well-developed, well-nourished, no apparent distress Head: Normocephalic, atraumatic Eyes: Normal inspection, PERRL, EOMI ENT: Normal ENT inspection, hearing grossly normal, pharynx normal Neck: Supple, no JVD, trachea midline Respiratory/Chest: Lungs clear to auscultation, normal breath sounds, no respiratory distress Cardiovascular: Regular rate & rhythm, no gallop, no murmur Abdomen/GI: Normal bowel sounds, non-tender, soft Extremities/Musculoskeletal: +Fluctuance medial aspect of left knee. Small scab over left knee. 1-2+ pitting edema lower extremities bilaterally. Chronic venous stasis changes. No calf tenderness Neurological/Psych: +Pleasantly confused, very forgetful. Disoriented to time. Alert, normal mood/affect, oriented x 2 Skin: Normal color, warm/dry, no rash Laboratory Results Last 24 Hours Test 07/16/17 06:10 07/16/17 06:11 07/16/17 11:32 White Blood Count 6.70 K/uL Red Blood Count 3.30 M/uL Hemoglobin 10.3 g/dL Hematocrit 32.6 % Mean Corpuscular Volume 98.8 fL Mean Corpuscular Hemoglobin 31.2 pg Mean Corpuscular Hemoglobin Concent 31.6 g/dl RDW Standard Deviation 54.0 fL RDW Coefficient of Variation 15.0 % Platelet Count 233 K/uL Mean Platelet Volume 10.1 fL Creatinine 1.01 mg/dl Est Creatinine Clear Calc Drug Dose 49.4 ml/min Estimated GFR () 58.8 Estimated GFR (Non- 50.7 Vancomycin Level Trough 24.6 mcg/ml Assessment and Plan 87 y/o female with a history of HTN, HLD, paroxysmal a-fib, chronic diastolic CHF, asthma/COPD, depression and dementia who presents from [facility] with lower extremity edema/cellulitis with a recent fall. Cellulitis of lower extremities--improving - Ancef d/c'd - Continue vanc - Continue Lasix 80 mg IV BID - Monitor I's & O's - Infectious disease consulted, appreciate recs: Spoke to Dr. Thomas. Can continue vanc for now, then transition to doxy x 14 days. Recent fall, possible left knee hematoma--stable -Left knee x-ray with soft tissue edema, no fracture. -Attempted aspiration 07/14 -Orthopedics consulted, appreciate recs: Continue medical management with IV abx and edema control. No surgical intervention at this time. Could not aspirate fluid. If continues to have swelling, could attempt re-aspiration in a few days to see if hematoma liquifies. HTN, HLD -Continue Toprol XL 25 mg PO qd, diltiazem 120 mg PO qd, losartan 50 mg PO qd PAF--stable -Continue beta marquise, Xarelto Chronic diastolic CHF--stable -Continue beta marquise, losartan, Lasix as above Asthma/emphysema--stable, no acute exacerbation -Continue Pulmicort BID -Breo converted to Advair BID Depression, dementia -Continue Zoloft 25 mg PO qd, donepezil 5 mg PO hs Dispo -From [facility]
[2017-07-16 16:04] VITALS: BP 167/93; PULSE 92; TEMP 36.3; O2SAT 96
[2017-07-16] MEDS: DONEPEZIL HCL 5 MG TAB PO SCH (21:19)
[2017-07-17 00:39] VITALS: BP 115/72; PULSE 139; TEMP 36.4; O2SAT 95
[2017-07-17] MEDS ORDERED: VANCOMYCIN IV 1,500 MG in SODIUM CHLORIDE 0.9% 500ML 500 ML IV SCH (06:00)
[2017-07-17 06:46] LABS: CALCIUM 8.5 mg/dl (8.5-10.1); CREATININE 1.08 mg/dl (0.60-1.20); POTASSIUM 3.9 mmol/L (3.5-5.1)
[2017-07-17 06:47] LABS: HEMATOCRIT 34.4 % (37-47); HEMOGLOBIN 11.2 g/dL (12.0-16.0); MEAN CELL VOLUME 97.5 fL (80-100); MEAN CORPUSCULAR HEMOGLOBIN 31.7 pg (25-34); MEAN CORPUSCULAR HGB CONC 32.6 g/dl (32-36); MEAN PLATELET VOLUME 10.2 fL (7.4-10.4); PLATELET COUNT 287 K/uL (130-400); RED CELL DISTRIBUTION WIDTH CV 15.1 % (11.5-14.5); RED CELL DISTRIBUTION WIDTH SD 53.2 fL (36.4-46.3); WHITE BLOOD COUNT 8.12 K/uL (4.8-10.8)
[2017-07-17 07:25] VITALS: BP 107/78; PULSE 83; TEMP 36.6; O2SAT 96
[2017-07-17] MEDS: FLUTICASONE/SALMETEROL 250/50 (ADVAIR) 14 PUFF/1 INHALER INH SCH (09:30)
[2017-07-17] MEDS: FUROSEMIDE INJ 80 MG in SYRINGE 0 ML IV SCH (09:30)
[2017-07-17] MEDS: BUDESONIDE 90 MCG INH INH SCH (09:30)
[2017-07-17] MEDS: SERTRALINE HCL 50 MG TAB PO SCH (09:31)
[2017-07-17] MEDS: RIVAROXABAN 20 MG TAB PO SCH (09:31)
[2017-07-17] MEDS: METOPROLOL SUCC 25MG EXT REL TAB PO SCH (09:31)
[2017-07-17] MEDS: LOSARTAN POTASSIUM 50 MG TAB PO SCH (09:31)
[2017-07-17] MEDS: POTASSIUM CHLORIDE 20 MEQ TABCR PO SCH (09:31)
[2017-07-17] MEDS: DILTIAZEM HCL 120 MG CAPCR PO SCH (09:32)
[2017-07-17 10:32] VITALS: O2SAT 94
[2017-07-17] MEDS ORDERED: DOXY1TAB6 PO (13:35)
--- NOTE | 2017-07-17 13:50 | Discharge Instructions ---
Discharge Instructions Date of Service Jul 17, 2017. Admission Reason for Admission: Cellulitis Of Right Leg, Left Leg Cellulitis, Discharge Discharge Diagnosis / Problem: Bilateral lower leg cellulitis Discharge Goals Goal(s): Decrease discomfort, Improve function, Diagnostic testing, Therapeutic intervention Activity Recommendations Activity Level: Assistance Required Therapies: Physical Therapy, Occupational Therapy . Additional Information Patient informed of condition: Yes Advance Directives: Yes DNR: Yes Level of Care: Other (personal shelter) Communicable Disease: No Prognosis: Stable Instructions / Follow-Up Instructions / Follow-Up The patient was admitted to the hospital with cellulitis in the right and left lower legs. She was initially treated with IV antibiotics as well as IV diuretics to help reduce swelling. There is what appears to be a hematoma near the left knee. Orthopedics attempted to aspirate this, but no fluid came out. This will need to be monitored. The patient is otherwise medically stable to return to her personal shelter. Medications: *Please take doxycycline 100 mg twice a day for 14 days. *STOP Augmentin and Bactrim. *Continue other home medications as prescribed. Follow up: *Please follow up with primary care provider within 1 week of hospital discharge. *Recommend patient returns to personal shelter with home health physical therapy and occupational therapy services. Please seek medical attention if patient experiences fevers, chills, sweats, dizziness/lightheadedness, loss of consciousness, chest pain, shortness of breath, nausea, vomiting, numbness or tingling. Current Hospital Diet Patient's current hospital diet: Low Sodium Diet (2gm Na) Discharge Diet Recommended Diet: AHA Diet (Heart Healthy), Low Sodium Diet (2gm Na) Pending Studies Studies pending at discharge: no Physician Orders On Transfer Special Precautions: Fall precautions Medical Emergencies . Who to Call and When: Medical Emergencies: If at any time you feel your situation is an emergency, please call 911 immediately. . Non-Emergent Contact Non-Emergency issues call your: Primary Care Provider Call Non-Emergent contact if: you have a fever, wound has increased drainage, wound has increased redness, wound has increased pain, you have any medication questions . Past History Medical & Surgical History: (1) Cellulitis . "Provider Documentation" section prepared by Ariadne Briones. . Core Measure Problem Core Measures: None
--- NOTE | 2017-07-17 13:54 | Discharge Summary ---
Discharge Summary Date of Service Jul 17, 2017. Discharge Summary Admission Date: Jul 12, 2017 at 18:21 Discharge Date: Jul 17, 2017 Discharge Disposition: Personal care Principal Diagnosis: Cellulitis Problems/Secondary Diagnoses: HTN, HLD, paroxysmal a-fib, chronic diastolic CHF, asthma/COPD, depression, dementia Immunizations: Have You Had Influenza Vaccine: Yes Influenza Vaccine Date: Feb 21, 2013 History of Tetanus Vaccine?: Unknown History of Pneumococcal: Yes History of Hepatitis B Vaccine: Unknown Consultations: Infectious disease Orthopedics Medication Reconciliation New Medications: Doxycycline Hyclate (Doxycycline Hyclate) 100 Mg Tab 1 TAB PO BID for 14 Days, #28 TAB Continued Medications: Acetaminophen Tab (Tylenol) 325 Mg Tab 650 MG PO Q4 PRN for Mild Pain MAX 3GM APAP/24HR Budesonide (Pulmicort Respules 0.5MG/2ML) 0.5 Mg/2 Ml Nebu 2 ML INH BID Bumetanide (Bumex) 2 Mg Tab 2 MG PO DAILY Diltiazem Hcl Ext Rel (Tiazac) 120 Mg Capcr 120 MG PO DAILY Docusate Sodium (Colace) 100 Mg Cap 100 MG PO BID PRN for Constipation Donepezil Hydrochloride (Donepezil Hcl) 5 Mg Tab 5 MG PO HS Fluticasone Furoate-Vilanterol (Breo Ellipta 200-25 Mcg/INH) 1 Inh Inh 1 PUFF INH DAILY Furosemide (Lasix) 80 Mg Tab 80 MG PO BID Ipratropium-Albuterol (Duoneb) 3 Ml Nebu 1 TREATMENT INH Q6 PRN for SOB/Wheezing Losartan Potassium (Cozaar) 50 Mg Tab 50 MG PO QAM Metoprolol Succinate (Toprol Xl) 25 Mg Tabcr 25 MG PO QAM Polyethylene Glycol 3350 (Miralax) 1 Pow Pow 17 GM PO QAM PRN for Constipation Potassium Ext Rel (Klor-Con) 20 Meq Tabcr 20 MEQ PO TID Prednisone (Prednisone) 20 Mg Tab 40 MG PO DIRECTED Rivaroxaban (Xarelto) 20 Mg Tab 20 MG PO QDD Sertraline (Zoloft) 25 Mg Tab 25 MG PO DAILY Tramadol Hcl (Ultram) 50 Mg Tab 1-2 TABS PO Q6H PRN for Pain PRN PAIN Discontinued Medications: Amoxicillin & Pot Clavulanate (Augmentin 875-125 mg) 1 Tab Tab 1 TAB PO BID Sulfa/Trimethoprim (Bactrim Ds 800MG/160MG) Tab 1 TAB PO BID Discharge Exam The patient reports feeling well, remains pleasantly confused. She denies any pain in her lower legs or left knee and maintains full ROM. The patient denies fevers, chills, sweats, chest pain, palpitations, claudication, cough, wheezing , shortness of breath, nausea, vomiting, abdominal pain, dysuria, hematuria, urinary retention, paralysis, weakness, numbness and tingling. Constitutional: No fever, No chills, No sweats Eyes: No worsening of vision, No eye pain, No diplopia ENT: No hearing loss, No nasal symptoms, No trouble swallowing Respiratory: No cough, No wheezing, No shortness of breath Cardiovascular: No chest pain, No claudication, No palpitations Abdomen: No pain, No nausea, No vomiting Musculoskeletal: No joint pain, No muscle pain, No swelling Genitourinary - Female: No dysuria, No urinary retention, No hematuria Neurologic: No paralysis, No weakness, No numbness/tingling Integumentary: No rash, No itch, No color change General appearance: +Morbidly obese. Well-developed, well-nourished, no apparent distress Head: Normocephalic, atraumatic Eyes: Normal inspection, PERRL, EOMI ENT: Normal ENT inspection, hearing grossly normal, pharynx normal Neck: Supple, no JVD, trachea midline Respiratory/Chest: Lungs clear to auscultation, normal breath sounds, no respiratory distress Cardiovascular: Regular rate & rhythm, no gallop, no murmur Abdomen/GI: Normal bowel sounds, non-tender, soft Extremities/Musculoskeletal: +Fluctuance medial aspect of left knee. Small scab over left knee. 1-2+ pitting edema lower extremities bilaterally. Chronic venous stasis changes. No calf tenderness Neurological/Psych: +Pleasantly confused, very forgetful. Disoriented to time and place. Alert, normal mood/affect, oriented x1 Skin: Normal color, warm/dry, no rash Hospital Course 87 y/o female with a history of HTN, HLD, paroxysmal a-fib, chronic diastolic CHF, asthma/COPD, depression and dementia who presents from [facility] with lower extremity edema/cellulitis with a recent fall. Cellulitis of lower extremities--improving - Ancef d/c'd - Continue vanc - Continue Lasix 80 mg IV BID, can resume home oral dose at discharge - Monitor I's & O's - Infectious disease consulted, appreciate recs: Doxycycline x 14 days Recent fall, possible left knee hematoma--stable -Left knee x-ray with soft tissue edema, no fracture. -Attempted aspiration 07/14 -Orthopedics consulted, appreciate recs: Continue medical management with IV abx and edema control. No surgical intervention at this time. Could not aspirate fluid. If continues to have swelling, could attempt re-aspiration in a few days to see if hematoma liquifies. HTN, HLD -Continue Toprol XL 25 mg PO qd, diltiazem 120 mg PO qd, losartan 50 mg PO qd PAF--stable -Continue beta marquise, Xarelto Chronic diastolic CHF--stable -Continue beta marquise, losartan, Lasix 80 mg PO BID, Bumex 2 mg PO qd Asthma/emphysema--stable, no acute exacerbation -Continue Pulmicort BID -Breo converted to Advair BID while inpatient Depression, dementia -Continue Zoloft 25 mg PO qd, donepezil 5 mg PO hs Code Status -Level V, DO NOT RESUSCITATE Dispo -From [facility], ri to return as medically stable Total Time Spent: Greater than 30 minutes This includes examination of the patient, discharge planning, medication reconciliation, and communication with other providers. Discharge Instructions Please refer to the electronic Patient Visit Report (Discharge Instructions) for additional information. Additional Copies To [facility]
[2017-07-17 15:09] VITALS: BP 107/58; PULSE 67; TEMP 36.2; O2SAT 96
[2017-07-19] MEDS ORDERED: VANCOMYCIN TROUGH ONE (11:30)
== END 2017-07-17 16:05 | disposition home or self-care (01) | DRG 603 ==
LOC: C.EDB 14:59 → C.MS4W 18:21 → ENRESERV 18:28
PROVIDERS: ADMIT Internal Medicine; ATTEND Internal Medicine
DX: L03.116 Cellulitis of left lower limb (principal); I50.32 Chronic diastolic (congestive) heart failure; Z68.43 Body mass index [BMI] 50.0-59.9, adult; L03.115 Cellulitis of right lower limb; S80.02XA Contusion of left knee, initial encounter; I48.0 Paroxysmal atrial fibrillation; I87.2 Venous insufficiency (chronic) (peripheral); I11.0 Hypertensive heart disease with heart failure; G30.9 Alzheimer's disease, unspecified; F02.80 Dementia in other diseases classified elsewhere, unspecified severity, without behavioral disturbance, psychotic disturbance, mood disturbance, and anxiety; J44.9 Chronic obstructive pulmonary disease, unspecified; J45.909 Unspecified asthma, uncomplicated; F32.9 Major depressive disorder, single episode, unspecified; E66.3 Overweight; Z79.899 Other long term (current) drug therapy; Z79.01 Long term (current) use of anticoagulants; Z87.01 Personal history of pneumonia (recurrent); Z82.49 Family history of ischemic heart disease and other diseases of the circulatory system; W19.XXXA Unspecified fall, initial encounter

== ENCOUNTER 2017-08-03 13:38 | Emergency (ER) | payer OTHER, BC ==
[~2017-08-03 13:38] MED LIST changes: +BUME2TAB3 PO; -CRD30 PO; +DILT120C68 PO; -FRS/40 PO; +POTA-639 PO; -POTA10CA28 PO; +RIVA1TAB4 PO; -TRAM-10 PO; +ULT/50 PO; -XRL20 PO
[2017-08-03 13:47] VITALS: TEMP 36.9
[2017-08-03] MEDS ORDERED: DILT120C51 PO (14:09)
[2017-08-03] MEDS ORDERED: DIPH1TAB87 PO (14:19)
--- NOTE | 2017-08-03 14:29 | EMERGENCY ROOM VISIT NOTE ---
History Report prepared by Radha: García Villatoro Under the Supervision of: Dr. Nabor العراقي D.O. First contact with patient: 14:12 Chief Complaint: SWELLING TO EXTREMITY Stated Complaint: LEG PAIN History of Present Illness The patient is an 87 year old female who presents to the Emergency Room with complaints of worsening left leg swelling for the past couple of days. Per the patient's daughter, the patient was diagnosed with cellulitis a week and a half ago, and she was on antibiotics, though she is no longer on them. She denies any leg pain, chest pain, and fever. The patient was seen yesterday at cardiology, and she was in A-fib which is chronic. She is currently on Xarelto, and she takes it daily. Source of History: patient, family Onset: the past few days Position: leg (left) Quality: other (swelling) Timing: worsening Associated Symptoms: No fevers, No chest pain Review of Systems See HPI for pertinent positives & negatives. A total of 10 systems reviewed and were otherwise negative. Past Medical & Surgical Medical Problems: (1) A-fib (2) Alzheimers disease (3) Asthma (4) Cellulitis (5) CHF (congestive heart failure) (6) CHF exacerbation (7) Fever (8) Heart disease (9) High cholesterol (10) Hypertension (11) PNA (pneumonia) Surgical Problems: (1) H/O hernia repair Family History Heart disease Hypertension Social History Smoking Status: Never Smoker Alcohol Use: none Drug Use: none Marital Status: Housing Status: intermediate Occupation Status: retired Current/Historical Medications Scheduled Budesonide (Pulmicort Respules 0.5MG/2ML), 2 ML INH BID Diltiazem Hcl Coated Beads (Cardizem Cd), 1 CAP PO QAM Donepezil Hydrochloride (Donepezil Hcl), 5 MG PO HS Fluticasone Furoate-Vilanterol (Breo Ellipta 200-25 Mcg/INH), 1 PUFF INH QAM Furosemide (Lasix), 80 MG PO BID Losartan Potassium (Cozaar), 50 MG PO QAM Metoprolol Succinate (Toprol Xl), 25 MG PO QAM Potassium Ext Rel (Klor-Con), 20 MEQ PO TID Rivaroxaban (Xarelto), 20 MG PO QAM Sertraline (Zoloft), 25 MG PO QAM Scheduled PRN Acetaminophen Tab (Tylenol), 650 MG PO Q4 PRN for Mild Pain Diphenhydramine Hcl (Benadryl Allergy), 2 MG PO DAILY PRN for Allergic Reaction Docusate Sodium (Colace), 100 MG PO BID PRN for Constipation Polyethylene Glycol 3350 (Miralax), 17 GM PO QAM PRN for Constipation Tramadol Hcl (Ultram), 1-2 TABS PO Q6H PRN for Pain Allergies Coded Allergies: No Known Allergies (Unverified , 07/12/17) Physical Exam Vital Signs Date Time Temp Pulse Resp B/P (MAP) Pulse Ox O2 Delivery O2 Flow Rate FiO2 08/03/17 16:35 75 123/54 93 08/03/17 16:20 75 123/54 93 Room Air 08/03/17 14:33 146 104/32 96 Room Air 08/03/17 13:47 36.9 72 151/70 97 Physical Exam GENERAL: Patient is awake, alert, pleasant appearing and non-anxious EYES: The conjunctivae are clear. The pupils are round and reactive. EARS, NOSE, MOUTH AND THROAT: The nose is without any evidence of any deformity. Mucous membranes are moist tongue is midline NECK: The neck is nontender and supple. RESPIRATORY: Normal respiratory effort is noted there is no evidence of wheezing rhonchi or rales CARDIOVASCULAR: Regular rate and rhythm noted there no murmurs rubs or gallops normal S1 normal S2 GASTROINTESTINAL: The abdomen is soft. Bowel sounds are present in all quadrants. Abdomen is nontender MUSCULOSKELETAL/EXTREMITIES: There is no evidence of gross deformity full range of motion is noted in the hips and shoulders SKIN: There is pedal edema bilaterally. Venous stasis changes noted left greater than right. NEUROLOGIC: Patient is at baseline according to her daughter. Medical Decision & Procedures ER Provider Diagnostic Interpretation: Radiology results as stated below per my review and radiologist interpretation: VENOUS DOPPLER LWR EXT BILA HISTORY: Pain. Edema. sent by PCP for poss DVT COMPARISON STUDY: None. FINDINGS: There is normal compressibility, flow, and augmentation within the bilateral lower extremity deep venous systems. IMPRESSION: No DVT within the right or left lower extremity. The above report was generated using voice recognition software. It may contain grammatical, syntax or spelling errors. Electronically signed by: Tommy Heart M.D. 08/03/2017 4:09 PM Dictated Date/Time: 08/03/2017 4:09 PM Medications Administered Medications (Trade) Dose Ordered Sig/Bryon Route Start Time Stop Time Status Last Admin Dose Admin Diphenhydramine HCl (Benadryl Cap) 25 mg NOW ONCE PO 08/03/17 16:30 08/03/17 16:31 DC 08/03/17 16:30 25 MG ED Course 1412: The patient was evaluated in room A9. A complete history and physical examination were performed. 1625: Upon reevaluation, the patient is doing well. I discussed the results and treatment plan with her and her family. They verbalized agreement of the treatment plan. She was discharged home. 1630: Benadryl cap 25mg PO Medical Decision Prior records reviewed and summarized above. Triage Nursing notes reviewed. Additional history obtained from the family. The patient's history was concerning for swelling and pain in the leg. Differential diagnosis: Etiologies such as DVT, musculoskeletal, infection, joint effusion, trauma, lymphedema, idiopathic, CHF, as well as others were entertained.. The patient is an 87-year-old female who presented to the emergency department from her personal [facility] for leg swelling. They attempted to obtain an outpatient ultrasound to rule out DVT but were unable to. For this reason the patient was sent to the emergency department. The patient's Doppler was negative. She was recently treated for cellulitis. Her daughter states that the symptoms are not worsened. The patient was on a full course of doxycycline for cellulitis. I discussed patient's radiographic studies with her and her daughter. She was given a prescription for Keflex to start in 48 hours if symptoms do not improve. Otherwise she was encouraged to follow-up with her primary care physician for further evaluation. Medication Reconcilliation Current Medication List: was personally reviewed by me Blood Pressure Screening Patient's blood pressure: Normal blood pressure Impression Primary Impression: Lower extremity edema Scribe Attestation The scribe's documentation has been prepared under my direction and personally reviewed by me in its entirety. I confirm that the note above accurately reflects all work, treatment, procedures, and medical decision making performed by me. Departure Information Dispostion Home / Self-Care Referrals [facility] (PCP) Forms HOME CARE DOCUMENTATION FORM, IMPORTANT VISIT INFORMATION, WORK / SCHOOL INSTRUCTIONS Patient Instructions ED Leg Swelling Bilateral, My [facility] Additional Instructions Follow-up with your family doctor this week for reevaluation. Continue all medications as prescribed.
--- NOTE | 2017-08-03 16:11 | DIAGNOSTIC IMAGING REPORT ---
VENOUS DOPPLER LWR EXT BILA HISTORY: Pain. Edema. sent by PCP for poss DVT COMPARISON STUDY: None. FINDINGS: There is normal compressibility, flow, and augmentation within the bilateral lower extremity deep venous systems. IMPRESSION: No DVT within the right or left lower extremity. The above report was generated using voice recognition software. It may contain grammatical, syntax or spelling errors. Electronically signed by: Tommy Heart M.D. 08/03/2017 4:09 PM Dictated Date/Time: 08/03/2017 4:09 PM
[2017-08-03 16:35] VITALS: BP 123/54; PULSE 75; O2SAT 93
== END 2017-08-03 16:38 | disposition home or self-care (01) ==
LOC: EDBD 13:38 → C.EDA 13:40
DX: R60.0 Localized edema (principal); I48.91 Unspecified atrial fibrillation; G30.9 Alzheimer's disease, unspecified; F02.80 Dementia in other diseases classified elsewhere, unspecified severity, without behavioral disturbance, psychotic disturbance, mood disturbance, and anxiety; J45.909 Unspecified asthma, uncomplicated; I50.9 Heart failure, unspecified; I51.9 Heart disease, unspecified; I10 Essential (primary) hypertension

== ENCOUNTER → 2017-08-20 | Outpatient (CLI) | payer OTHER, BC ==
[~2017-08-20] MED LIST changes: -BUME2TAB3 PO; +DILT120C51 PO; -DILT120C68 PO; +DIPH1TAB87 PO; -IPRASOL4 INH; -PRED20TA PO
== END | disposition home or self-care (01) ==
LOC: C.LAB 18:51
PROVIDERS: ATTEND Family Medicine
DX: R39.9 Unspecified symptoms and signs involving the genitourinary system (principal)

== ENCOUNTER 2017-08-28 21:34 | Inpatient (IN) | payer OTHER, BC ==
[~2017-08-28] VITALS: Ht 157.5 cm; Wt 123.1 kg
--- NOTE | 2017-08-28 22:15 | EMERGENCY ROOM VISIT NOTE ---
History Report prepared by Radha: Timbo Khanna Under the Supervision of: Dr. Miller Lou M.D. First contact with patient: 21:52 Chief Complaint: CONFUSION Stated Complaint: CELLULITIS IN L LEG AND CONFUSION History of Present Illness The patient is a 87 year old female who presents to the Emergency Room with complaints of worsening confusion that began a week ago. The patient is accompanied by her daughter who states that the patient fell 6-8 weeks ago. She reports the patient came to the ED after and had a negative CT scan. Her daughter states the patient has not had any falls since then. The patient's daughter states the patient is typically confused due to dementia. She reports that within the last week the patient has been more confused. She states the patient has been confused as to where she is, which is not normal. Her daughter states the patient has also been repeating things. Her daughter states that [facility], where the patient resides, called her today and reported the patient' s confusion worsened this evening. They told her the patient was saying she was at [employer] and tried to get into a car. They also noted the patient kept trying to leave. She states the patient started to take Bactrim three days ago for a UTI. Her daughter states that the patient's UTI has not decreased in severity. She states the patient also has cellulitis on both legs bilaterally. Her daughter reports the patient's cellulitis looks worse than when she was being treated in the past. She reports the patient also seems more short of breath than usual. The patient's daughter denies any nausea, vomiting, diarrhea, abdominal pain, and gaining weight. She states the patient typically wears oxygen at night. She states that the patient has a history of CHF and atrial fibrillation, which she takes Xarelto for. Source of History: patient, family Onset: a week ago Position: other (global) Quality: other (confusion) Timing: worsening Associated Symptoms: + SOB, No nausea, No vomiting, No abdominal pain, No diarrhea Review of Systems See HPI for pertinent positives and negatives. A total of ten systems were reviewed and were otherwise negative. Past Medical & Surgical Medical Problems: (1) A-fib (2) Alzheimers disease (3) Asthma (4) Cellulitis (5) CHF (congestive heart failure) (6) CHF exacerbation (7) Fever (8) Heart disease (9) High cholesterol (10) Hypertension (11) PNA (pneumonia) Surgical Problems: (1) H/O hernia repair Family History Heart disease Hypertension Social History Smoking Status: Never Smoker Alcohol Use: none Drug Use: none Marital Status: Housing Status: assisted Occupation Status: retired Current/Historical Medications Scheduled Budesonide (Pulmicort Respules 0.5MG/2ML), 2 ML INH BID Calcium Carbonate-Cholecalcife (Oyster Shell Calcium+D 500-200 mg-Unit), 1 TAB PO QAM Diltiazem Hcl Coated Beads (Cardizem Cd), 1 CAP PO QAM Donepezil Hydrochloride (Donepezil Hcl), 5 MG PO HS Fluticasone Furoate-Vilanterol (Breo Ellipta 200-25 Mcg/INH), 1 PUFF INH QAM Furosemide (Lasix), 80 MG PO BID17 Metoprolol Succinate (Toprol Xl), 50 MG PO QAM Potassium Chloride (Klor-Con Sprinkle), 10 MEQ PO TID Rivaroxaban (Xarelto), 20 MG PO QAM Sertraline (Zoloft), 25 MG PO QAM Sulfa/Trimethoprim (Bactrim Ds 800MG/160MG), 1 TAB PO BID Scheduled PRN Acetaminophen Tab (Tylenol), 650 MG PO Q4 PRN for Mild Pain Diphenhydramine Hcl (Benadryl Allergy), 25 MG PO Q6H PRN for ITCHING/RASH Home O2 Therapy (Oxygen), 2 LITERS NA PRN PRN for Shortness of Breath Ipratropium-Albuterol (Duoneb), 1 TREATMENT INH Q6H PRN for SOB/Wheezing Lorazepam (Ativan), 0.5 MG PO DIRECTED PRN for Anxiety/Agitation Nystatin (Topical) (Nystatin), 1 APPLN TD TID PRN for AFFECTED AREAS Polyethylene Glycol 3350 (Miralax), 17 GM PO QAM PRN for Constipation Tramadol Hcl (Ultram), 1-2 TABS PO Q6H PRN for Pain Allergies Coded Allergies: No Known Allergies (Unverified , 08/28/17) Physical Exam Vital Signs Date Time Temp Pulse Resp B/P (MAP) Pulse Ox O2 Delivery O2 Flow Rate FiO2 08/29/17 02:57 62 22 162/62 97 Room Air 08/29/17 02:08 65 08/29/17 01:14 66 23 161/72 97 Nasal Cannula 2.0 08/29/17 00:06 36.7 64 24 161/72 94 Nasal Cannula 2.0 08/28/17 22:54 68 24 142/74 97 Nasal Cannula 2.0 08/28/17 22:53 63 08/28/17 22:00 94 Nasal Cannula 2.0 08/28/17 22:00 94 Nasal Cannula 2.0 08/28/17 21:39 36.7 74 18 150/59 93 Room Air Physical Exam GENERAL: Awake, alert, pleasantly demented, chronically ill appearing, mildly dyspneic in no distress HENT: Normocephalic, atraumatic. Dry mucous membranes. Oropharynx otherwise unremarkable. EYES: Normal conjunctiva. Sclera non-icteric. NECK: Supple. No nuchal rigidity. FROM. No JVD. RESPIRATORY: Diminished breath sounds throughout CARDIAC: Regular rate, normal rhythm. Extremities warm and well perfused. Pulses equal. ABDOMEN: Obese. Soft, non-distended. No tenderness to palpation. No rebound or guarding. No masses. RECTAL: Deferred. MUSCULOSKELETAL: Chest examination reveals no tenderness. The back is symmetrical on inspection without obvious abnormality. There is no CVA tenderness to palpation. No joint edema. LOWER EXTREMITIES: Calves are equal size bilaterally and non-tender. 3+ bilateral edema. Weeping. mild erythema/warmth. NEURO: Normal sensorium. No sensory or motor deficits noted. SKIN: No rash or jaundice noted. Medical Decision & Procedures ER Provider Diagnostic Interpretation: Radiology results as stated below per my review and radiologist interpretation: CT HEAD: No acute intracranial process. Atrophy and small vessel disease. Radiologist: Khris Messer M.D. CHEST ONE VIEW PORTABLE HISTORY: 87 years-old Female Evaluate Fever/Sepsis acute fever COMPARISON: Chest radiograph 07/12/2017 TECHNIQUE: Portable AP view of the chest FINDINGS: Cardiac silhouette is enlarged. There is mild interstitial coarsening and pulmonary vascular congestion. No pneumothorax or pleural effusion. No overt pulmonary edema. Subsegmental bibasilar opacities. Degenerative changes of the shoulders and spine. Cortical thickening about the left proximal femur suggests healed remote fracture. IMPRESSION: 1. Cardiomegaly with suggested mild pulmonary edema. 2. Subsegmental bibasilar opacities favor atelectasis. The above report was generated using voice recognition software. It may contain grammatical, syntax or spelling errors. Electronically signed by: Kris Hahn M.D. 08/28/2017 10:35 PM Dictated Date/Time: 08/28/2017 10:33 PM Laboratory Results Test 08/28/17 22:07 08/28/17 22:16 08/28/17 22:28 08/28/17 22:45 RDW Standard Deviation 50.6 fL (36.4-46.3) RDW Coefficient of Variation 14.7 % (11.5-14.5) White Blood Count 8.58 K/uL (4.8-10.8) Red Blood Count 3.51 M/uL (4.2-5.4) Hemoglobin 10.7 g/dL (12.0-16.0) Hematocrit 32.8 % (37-47) Mean Corpuscular Volume 93.4 fL (80-100) Mean Corpuscular Hemoglobin 30.5 pg (25-34) Mean Corpuscular Hemoglobin Concent 32.6 g/dl (32-36) Platelet Count 198 K/uL (130-400) Mean Platelet Volume 9.8 fL (7.4-10.4) Neutrophils (%) (Auto) 65.2 % Lymphocytes (%) (Auto) 18.2 % Monocytes (%) (Auto) 10.4 % Eosinophils (%) (Auto) 5.1 % Basophils (%) (Auto) 0.6 % Neutrophils # (Auto) 5.60 K/uL (1.4-6.5) Lymphocytes # (Auto) 1.56 K/uL (1.2-3.4) Monocytes # (Auto) 0.89 K/uL (0.11-0.59) Eosinophils # (Auto) 0.44 K/uL (0-0.5) Basophils # (Auto) 0.05 K/uL (0-0.2) Immature Granulocyte % (Auto) 0.5 % Immature Granulocyte # (Auto) 0.04 K/uL (0.00-0.02) Total Bilirubin 0.3 mg/dl (0.2-1) Direct Bilirubin 0.1 mg/dl (0-0.2) Aspartate Amino Transf (AST/SGOT) 22 U/L (15-37) Alanine Aminotransferase (ALT/SGPT) 17 U/L (12-78) Alkaline Phosphatase 55 U/L (45-117) Troponin I < 0.015 ng/ml (0-0.045) Pro-B-Type Natriuretic Peptide 562 pg/ml (0-1800) Total Protein 7.2 gm/dl (6.4-8.2) Albumin 3.2 gm/dl (3.4-5.0) Lipase 149 U/L (73-393) Bedside Lactic Acid Venous 2.28 mmol/L (0.90-1.70) Venous Blood pH 7.43 (7.36-7.41) Venous Blood Partial Pressure CO2 42 mmHg (38.0-50.0) Venous Blood Partial Pressure O2 67 mmHg Venous Blood HCO3 28 mmol/L Venous Blood Oxygen Saturation 90.6 % Venous Blood Base Excess 3.1 mEq/L Urine Color YELLOW Urine Appearance CLEAR (CLEAR) Urine pH 5.0 (4.5-7.5) Urine Specific [place] 1.017 (1.000-1.030) Urine Protein NEG (NEG) Urine Glucose (UA) NEG (NEG) Urine Ketones NEG (NEG) Urine Occult Blood TRACE (NEG) Urine Nitrite NEG (NEG) Urine Bilirubin NEG (NEG) Urine Urobilinogen NEG (NEG) Urine Leukocyte Esterase NEG (NEG) Urine WBC (Auto) 0 /hpf (0-5) Urine RBC (Auto) 0-4 /hpf (0-4) Urine Hyaline Casts (Auto) 1-5 /lpf (0-5) Urine Epithelial Cells (Auto) 0-5 /lpf (0-5) Urine Bacteria (Auto) NEG (NEG) Laboratory results reviewed by me Medications Administered Medications (Trade) Dose Ordered Sig/Bryon Route Start Time Stop Time Status Last Admin Dose Admin Sodium Chloride 500 ml @ 999 mls/hr Q31M STAT IV 08/29/17 00:00 08/29/17 00:30 DC 08/29/17 00:00 999 MLS/HR Furosemide (Lasix Inj) 80 mg NOW STAT IV 08/29/17 01:02 08/29/17 01:05 DC 08/29/17 01:54 80 MG Vancomycin HCl 2000 mg/Sodium Chloride 540 ml @ 200 mls/hr ONE STAT IV 08/29/17 01:02 08/29/17 03:43 DC 08/29/17 01:30 200 MLS/HR ECG Per My Interpretation Indication: altered mental status Rate (beats per minute): 66 Rhythm: normal sinus Findings: no acute ischemic change, other (normal axis) ED Course 2201: The patient was evaluated in room C08. A complete history and physical exam was performed. 0058: I reevaluated the patient and updated her on her results. I discussed the treatment plan, which she agrees to. The patient will be further evaluated. 0126: I discussed the patients case with Dr. Gomez, [facility] Hospitalist. She understands the patients condition and agrees to accept the patient. Medical Decision I reviewed the patient's past medical history, medications, and the nursing notes as described above. Differential Diagnosis: metabolic, infection, hypoglycemia, electrolyte abnormalities, cardiac sources, intracerebral event, toxicologic, neurologic, as well as others were entertained. The patient is an 87-year-old woman with a past medical history of dementia, CHF , afib on Xarelto, prior history of lower extremity cellulitis who presents emergency department with increasing confusion attempting to leave her assisted per hpi. On arrival the patient is pleasantly confused mildly dyspneic but no acute distress, afebrile with stable vital signs. The patient's daughter at the bedside reports that normally she is only short of breath with exertion however she appears short of breath at rest now despite being on nasal cannula while awake which normally she only uses when sleeping. On exam the patient has 3+ bilateral lower extremity edema which the daughter reports his slightly worse than recent and redness and weeping also is new as of the past couple of days. EKG unremarkable. CT head unremarkable. WBC within normal limits. [id number] lactate elevated 2.28 is nonspecific given the patient is afebrile with WBC within normal limits. Chest x-ray demonstrates cardiomegaly with possible mild pulmonary edema. Given the patient's increased lower extremity edema in the setting of her dyspnea but also with lactate elevation likely will require combination of hydration and diuresis. Additionally will treat with vancomycin for the patient's lower extremity cellulitis. Case was discussed with Dr. Gomez, [facility] admitting resident, who will evaluate the patient for admission. Medication Reconcilliation Current Medication List: was personally reviewed by me Blood Pressure Screening Patient's blood pressure: Elevated blood pressure Referred to Hospitalist Consults Time Called: 010 Consulting Physician: Dr. Gomez, [facility] Hospitalist Returned Call: [phone] I discussed the patients case with Dr. Gomez [facility] Hospitalist. She understands the patients condition and agrees to accept the patient. Impression Primary Impression: Cellulitis Additional Impression: Dyspnea due to congestive heart failure Scribe Attestation The scribe's documentation has been prepared under my direction and personally reviewed by me in its entirety. I confirm that the note above accurately reflects all work, treatment, procedures, and medical decision making performed by me. Departure Information Dispostion Being Evaluated By Hospitalist Referrals [facility] (PCP) Patient Instructions My [facility] Problem Qualifiers
[2017-08-28 22:27] LABS: BASO % 0.6 %; BASO ABS # 0.05 K/uL (0-0.2); EOS % 5.1 %; EOS ABS # 0.44 K/uL (0-0.5); HEMATOCRIT 32.8 % (37-47); HEMOGLOBIN 10.7 g/dL (12.0-16.0); IG# 0.04 K/uL (0.00-0.02); LYMPH % 18.2 %; LYMPH ABS # 1.56 K/uL (1.2-3.4); MEAN CELL VOLUME 93.4 fL (80-100); MEAN CORPUSCULAR HEMOGLOBIN 30.5 pg (25-34); MEAN CORPUSCULAR HGB CONC 32.6 g/dl (32-36); MEAN PLATELET VOLUME 9.8 fL (7.4-10.4); MONO % 10.4 %; MONO ABS # 0.89 K/uL (0.11-0.59); NEUT % 65.2 %; PLATELET COUNT 198 K/uL (130-400); RED CELL DISTRIBUTION WIDTH CV 14.7 % (11.5-14.5); RED CELL DISTRIBUTION WIDTH SD 50.6 fL (36.4-46.3); WHITE BLOOD COUNT 8.58 K/uL (4.8-10.8)
--- NOTE | 2017-08-28 22:37 | DIAGNOSTIC IMAGING REPORT ---
CHEST ONE VIEW PORTABLE HISTORY: 87 years-old Female Evaluate Fever/Sepsis acute fever COMPARISON: Chest radiograph 07/12/2017 TECHNIQUE: Portable AP view of the chest FINDINGS: Cardiac silhouette is enlarged. There is mild interstitial coarsening and pulmonary vascular congestion. No pneumothorax or pleural effusion. No overt pulmonary edema. Subsegmental bibasilar opacities. Degenerative changes of the shoulders and spine. Cortical thickening about the left proximal femur suggests healed remote fracture. IMPRESSION: 1. Cardiomegaly with suggested mild pulmonary edema. 2. Subsegmental bibasilar opacities favor atelectasis. The above report was generated using voice recognition software. It may contain grammatical, syntax or spelling errors. Electronically signed by: Kris Hahn M.D. 08/28/2017 10:35 PM Dictated Date/Time: 08/28/2017 10:33 PM
[2017-08-28 22:44] LABS: ALBUMIN 3.2 gm/dl (3.4-5.0); ALT/SGPT 17 U/L (12-78); AST/SGOT 22 U/L (15-37); BLOOD UREA NITROGEN 17 mg/dl (7-18); CALCIUM 8.6 mg/dl (8.5-10.1); CARBON DIOXIDE 27 mmol/L (21-32); GLUCOSE 126 mg/dl (70-99); LIPASE 149 U/L (73-393); POTASSIUM 3.7 mmol/L (3.5-5.1); SODIUM 136 mmol/L (136-145)
[2017-08-28 22:49] LABS: ALKALINE PHOSPHATASE 55 U/L (45-117); TOTAL PROTEIN 7.2 gm/dl (6.4-8.2)
[2017-08-29] VITALS (14 sets, daily range): BP systolic 120–164; BP diastolic 66–84; PULSE 60–120; TEMP 36.6–36.8; O2SAT 92–100; Ht 157.5 cm; Wt 123.1 kg
[2017-08-29] MEDS ORDERED: SODIUM CHLORIDE 0.9% 500ML 500 ML IV STA
[2017-08-29] MEDS ORDERED: LORA-741 PO
[2017-08-29] MEDS ORDERED: SULF800T23 PO
[2017-08-29] MEDS ORDERED: POTA1CAP53 PO
[2017-08-29] MEDS ORDERED: CALC-492 PO
[2017-08-29] MEDS ORDERED: IPRASOL4 INH
[2017-08-29] MEDS ORDERED: NYST100033 TD
[2017-08-29] MEDS ORDERED: OXGN
[2017-08-29] MEDS ORDERED: METO-217 PO
[2017-08-29] MEDS ORDERED: FUROSEMIDE 40 MG/4 ML VIAL IV STA (01:02)
[2017-08-29] MEDS ORDERED: VANCOMYCIN IV 2,000 MG in SODIUM CHLORIDE 0.9% 500ML 500 ML IV STA (01:02)
[2017-08-29] MEDS ORDERED: VANCOMYCIN CONSULT ACTIVE PRN ×2 (01:15→03:00)
--- NOTE | 2017-08-29 02:23 | History and Physical ---
History & Physical Date & Time of Service: August 29, 2017 at 02:20 Chief Complaint: Cellulitis In L Leg And Confusion Primary Care Physician: Carringtonanila History of Present Illness Source: patient, family 87 y/o F with pMHx chronic diastolic CHF, COPD, HTN, HLD, dementia, morbid obesity presents to ED from [facility] with a 1 week history of worsening confusion. Patient is poor historian and history obtained from daughter. For the last week, there has been an acute change in patient's mentation. Along with confusion, she is more agitated and occasionally verbally aggressive. A UA was checked and patient was started on Bactrim for UTI - she has completed 7 of the 10 doses at present. Patient was never symptomatic with urinary symptoms. Despite the antibiotics, patient's confusion has not improved. In addition to this, patient had noted increased dyspnea at rest (patient previously on dyspneic on exertion, and only wears O2 at night) as well as worsening swelling of her lower extremities, including mini bullous formations noted on her left leg. Additionally, there is worsening redness of the right lower leg. Patient has been compliant with medication and low salt diet. The patient ambulates with walker at baseline, and had a fall ~ 2 months ago, but she otherwise denies fevers/chills, headaches, CP, palpitations, abdominal pain. She does have excoriations on her abdomen and left knee and patient says sometimes she is itchy. She is tolerating diet without nausea or vomiting, and voiding and stooling appropriately. ROS is unremarkable except as noted above. Past Medical/Surgical History Medical: 1) Chronic diastolic CHF 2) COPD or asthma 3) Morbid obesity 4) Moderate dementia 5) HTN 6) Hyperlipidemia Surgical: 1) ACL repair 2) Hernia repair Family History Heart disease Hypertension Non contributory Social History Smoking Status: Never Smoker Smokeless Tobacco Use: No Alcohol Use: none Drug Use: none Marital Status: Housing status: assisted living Occupational Status: retired Immunizations History of Influenza Vaccine: Yes Influenza Vaccine Date: Feb 21, 2013 History of Tetanus Vaccine?: Unknown History of Pneumococcal: Yes History of Hepatitis B Vaccine: Unknown Allergies Coded Allergies: No Known Allergies (Unverified , 08/28/17) Home Medications Scheduled Budesonide (Pulmicort Respules 0.5MG/2ML), 2 ML INH BID Calcium Carbonate-Cholecalcife (Oyster Shell Calcium+D 500-200 mg-Unit), 1 TAB PO QAM Diltiazem Hcl Coated Beads (Cardizem Cd), 1 CAP PO QAM Donepezil Hydrochloride (Donepezil Hcl), 5 MG PO HS Fluticasone Furoate-Vilanterol (Breo Ellipta 200-25 Mcg/INH), 1 PUFF INH QAM Furosemide (Lasix), 80 MG PO BID17 Metoprolol Succinate (Toprol Xl), 50 MG PO QAM Potassium Chloride (Klor-Con Sprinkle), 10 MEQ PO TID Rivaroxaban (Xarelto), 20 MG PO QAM Sertraline (Zoloft), 25 MG PO QAM Sulfa/Trimethoprim (Bactrim Ds 800MG/160MG), 1 TAB PO BID Scheduled PRN Acetaminophen Tab (Tylenol), 650 MG PO Q4 PRN for Mild Pain Diphenhydramine Hcl (Benadryl Allergy), 25 MG PO Q6H PRN for ITCHING/RASH Home O2 Therapy (Oxygen), 2 LITERS NA PRN PRN for Shortness of Breath Ipratropium-Albuterol (Duoneb), 1 TREATMENT INH Q6H PRN for SOB/Wheezing Lorazepam (Ativan), 0.5 MG PO DIRECTED PRN for Anxiety/Agitation Nystatin (Topical) (Nystatin), 1 APPLN TD TID PRN for AFFECTED AREAS Polyethylene Glycol 3350 (Miralax), 17 GM PO QAM PRN for Constipation Tramadol Hcl (Ultram), 1-2 TABS PO Q6H PRN for Pain Physical Exam Vital Signs Date Time Temp Pulse Resp B/P (MAP) Pulse Ox O2 Delivery O2 Flow Rate FiO2 08/29/17 02:08 65 08/29/17 01:14 66 23 161/72 97 Nasal Cannula 2.0 08/29/17 00:06 36.7 64 24 161/72 94 Nasal Cannula 2.0 08/28/17 22:54 68 24 142/74 97 Nasal Cannula 2.0 08/28/17 22:53 63 08/28/17 22:00 94 Nasal Cannula 2.0 08/28/17 22:00 94 Nasal Cannula 2.0 08/28/17 21:39 36.7 74 18 150/59 93 Room Air General Appearance: WD/WN, no apparent distress Head: normocephalic, atraumatic Eyes: sclerae normal ENT: hearing grossly normal, pharynx normal, + pertinent finding (moist mucous membranes) Neck: supple, + pertinent finding (unable to assess JVD due to large neck) Respiratory/Chest: no respiratory distress, no accessory muscle use, + decreased breath sounds (bibasilar) Cardiovascular: regular rate, rhythm, normal peripheral pulses Abdomen/GI: normal bowel sounds, non tender, soft Back: normal inspection Extremities/Musculoskelatal: no calf tenderness, + pedal edema, + swelling Neurologic/Psych: alert, normal mood/affect, + disoriented Skin: + pertinent finding (Evidence of chronic venostasis on lower extremities , left leg slightly redder and warmer compared to right. Multiple little bullous present on medial side of left leg) Diagnostics Laboratory Results Results Past 24 Hours Test 08/28/17 22:07 08/28/17 22:16 08/28/17 22:28 08/28/17 22:45 Range/Units White Blood Count 8.58 4.8-10.8 K/uL Red Blood Count 3.51 4.2-5.4 M/uL Hemoglobin 10.7 12.0-16.0 g/dL Hematocrit 32.8 37-47 % Mean Corpuscular Volume 93.4 80-100 fL Mean Corpuscular Hemoglobin 30.5 25-34 pg Mean Corpuscular Hemoglobin Concent 32.6 32-36 g/dl Platelet Count 198 130-400 K/uL Mean Platelet Volume 9.8 7.4-10.4 fL Neutrophils (%) (Auto) 65.2 % Lymphocytes (%) (Auto) 18.2 % Monocytes (%) (Auto) 10.4 % Eosinophils (%) (Auto) 5.1 % Basophils (%) (Auto) 0.6 % Neutrophils # (Auto) 5.60 1.4-6.5 K/uL Lymphocytes # (Auto) 1.56 1.2-3.4 K/uL Monocytes # (Auto) 0.89 0.11-0.59 K/uL Eosinophils # (Auto) 0.44 0-0.5 K/uL Basophils # (Auto) 0.05 0-0.2 K/uL RDW Standard Deviation 50.6 36.4-46.3 fL RDW Coefficient of Variation 14.7 11.5-14.5 % Immature Granulocyte % (Auto) 0.5 % Immature Granulocyte # (Auto) 0.04 0.00-0.02 K/uL Sodium Level 136 136-145 mmol/L Potassium Level 3.7 3.5-5.1 mmol/L Chloride Level 101 98-107 mmol/L Carbon Dioxide Level 27 21-32 mmol/L Anion Gap 8.0 3-11 mmol/L Blood Urea Nitrogen 17 7-18 mg/dl Creatinine 1.10 0.60-1.20 mg/dl Estimated GFR () 53.0 Estimated GFR (Non- 45.7 BUN/Creatinine Ratio 15.8 10-20 Random Glucose 126 70-99 mg/dl Calcium Level 8.6 8.5-10.1 mg/dl Total Bilirubin 0.3 0.2-1 mg/dl Direct Bilirubin 0.1 0-0.2 mg/dl Aspartate Amino Transf (AST/SGOT) 22 15-37 U/L Alanine Aminotransferase (ALT/SGPT) 17 12-78 U/L Alkaline Phosphatase 55 45-117 U/L Troponin I < 0.015 0-0.045 ng/ml Pro-B-Type Natriuretic Peptide 562 0-1800 pg/ml Total Protein 7.2 6.4-8.2 gm/dl Albumin 3.2 3.4-5.0 gm/dl Lipase 149 73-393 U/L Bedside Lactic Acid Venous 2.28 0.90-1.70 mmol/L Venous Blood pH 7.43 7.36-7.41 Venous Blood Partial Pressure CO2 42 38.0-50.0 mmHg Venous Blood Partial Pressure O2 67 mmHg Venous Blood HCO3 28 mmol/L Venous Blood Oxygen Saturation 90.6 % Venous Blood Base Excess 3.1 mEq/L Urine Color YELLOW Urine Appearance CLEAR CLEAR Urine pH 5.0 4.5-7.5 Urine Specific [place] 1.017 1.000-1.030 Urine Protein NEG NEG Urine Glucose (UA) NEG NEG Urine Ketones NEG NEG Urine Occult Blood TRACE NEG Urine Nitrite NEG NEG Urine Bilirubin NEG NEG Urine Urobilinogen NEG NEG Urine Leukocyte Esterase NEG NEG Urine WBC (Auto) 0 0-5 /hpf Urine RBC (Auto) 0-4 0-4 /hpf Urine Hyaline Casts (Auto) 1-5 0-5 /lpf Urine Epithelial Cells (Auto) 0-5 0-5 /lpf Urine Bacteria (Auto) NEG NEG Microbiology Results 08/28/17 Blood Culture, Received Pending 08/28/17 Blood Culture, Received Pending Diagnostic Radiology CHEST ONE VIEW PORTABLE HISTORY: 87 years-old Female Evaluate Fever/Sepsis acute fever COMPARISON: Chest radiograph 07/12/2017 TECHNIQUE: Portable AP view of the chest FINDINGS: Cardiac silhouette is enlarged. There is mild interstitial coarsening and pulmonary vascular congestion. No pneumothorax or pleural effusion. No overt pulmonary edema. Subsegmental bibasilar opacities. Degenerative changes of the shoulders and spine. Cortical thickening about the left proximal femur suggests healed remote fracture. IMPRESSION: 1. Cardiomegaly with suggested mild pulmonary edema. 2. Subsegmental bibasilar opacities favor atelectasis. CT head STAT RAD: No acute intracranial process. Atrophy and small vessel disease. Impression Assessment and Plan 87 y/o F with pMHx chronic diastolic CHF, COPD, HTN, HLD, dementia, morbid obesity presents to ED from [facility] with CHF exacerbation and cellulitis of left leg. Altered mental status - CT head negative. Not likely hypoxic (blood gas ok), metabolic (labs in acceptable range) or infectious (UA negative, BCx pending) - Likely progression in her dementia (see below) Acute exacerbation of diastolic CHF /HTN / HLD / Paroxysmal a.fib - CXR: Cardiomegaly with suggested mild pulmonary edema. - Last echo in 2016: - Started IV furosemide 40mg BID + KCl 20mEq BID - Continue metoprolol, diltiazem, and chronic anticoagulation with Xarelto - Daily weight, strict I/Os, law salt diet, trend BMP Chronic leg edema now with cellulitis/stasis dermatitis - Empiric treatment with doxycycline and vancomycin (from health care setting) - Wound consulted - Recommend Jeannine boots, as patient unable to tolerate KERRI - May benefit from outpatient lymphedema clinic follow up Weakness/fall - OT/PT ordered COPD - stable - Supplemental O2 overnight - Continue home inhalers: DuoNeb, budesonide - Ordered incentive spirometry as CXR reports: subsegmental bibasilar opacities favor atelectasis Dementia - Cont Donepezil. - Per daughter, she has a tendency to sundown and has required 1 to 1 obs in hospital previously - Can consider mild sedative and low-dose antipsychotic if needed VTE ppx - SCDs - Xarelto, as above Full code Attending addendum: I have physically seen this patient, have supervised the medical residents activities, and agree with the H&P unless as otherwise noted. Assessment and Plan: Altered mental status/history dementia aggravated by underlying cellulitis and CHF. Continue donepezil. Treat underlying processes Acute on chronic diastolic CHF/hypertension/PAF-- The patient will be admitted to telemetry for serial cardiac enzymes, serial EKG's, cardiac rhythm monitoring and a 2-D echocardiogram with Dopplers. Lasix 40 mg IV twice daily + KCl 20 mEq p.o. twice daily. Continue metoprolol, and diltiazem with hold parameters. Continue anticoagulation with Xarelto. Serial BMP and magnesium levels. Serial chest x-rays. Chronic venous insufficiency/acute retention with vacuoles/left lower extremity cellulitis-- Antibiotics as above vancomycin IV and doxycycline. Wound care consult. Unna boots Other treatments as above. Advanced Directives Existing Power of Dairy Management Specialist: Yes Resuscitation Status FULL VTE Prophylaxis Will order VTE Prophylaxis: Yes Resident Tracking Resident Involvement: Resident Care Provided Care Provided: Adult Hospital Medicine
[2017-08-29] MEDS ORDERED: NYSTATIN POWDER 15GM BTL EXT PRN (02:30)
[2017-08-29] MEDS ORDERED: TRAMADOL HCL 50 MG TAB PO PRN (02:30)
[2017-08-29] MEDS ORDERED: NITROGLYCERIN 0.4 MG SL PER TAB CHARGE SL PRN (02:30)
[2017-08-29] MEDS ORDERED: POLYETHYLENE (MIRALAX) 17 GM PACK PO PRN (02:30)
[2017-08-29] MEDS ORDERED: MAGNESIUM HYDROXIDE SUSP 30 ML UDC PO PRN (02:30)
[2017-08-29] MEDS ORDERED: ALUMINUM/MAGNESIUM/SIMETH (MAALOX MAX) 30 ML UDC PO PRN (02:30)
[2017-08-29] MEDS ORDERED: ONDANSETRON INJ 2 MG/ML 2 ML VIAL IV PRN (02:30)
[2017-08-29] MEDS ORDERED: ACETAMINOPHEN 325 MG TAB PO PRN (02:30)
[2017-08-29] MEDS ORDERED: PATIENT'S HEIGHT AND/OR WEIGHT NEEDED SCH (03:30)
[2017-08-29] MEDS ORDERED: IV FLUIDS COMPLETED PRN (05:45)
[2017-08-29 06:52] LABS: HEMATOCRIT 32.9 % (37-47); HEMOGLOBIN 10.8 g/dL (12.0-16.0); MEAN CELL VOLUME 92.9 fL (80-100); MEAN CORPUSCULAR HEMOGLOBIN 30.5 pg (25-34); MEAN CORPUSCULAR HGB CONC 32.8 g/dl (32-36); PLATELET COUNT 193 K/uL (130-400); RED CELL DISTRIBUTION WIDTH CV 14.5 % (11.5-14.5); RED CELL DISTRIBUTION WIDTH SD 49.8 fL (36.4-46.3); WHITE BLOOD COUNT 8.07 K/uL (4.8-10.8)
[2017-08-29] MEDS: ALBUT/IPRATROP 3MG/0.5MG NEB 3 ML VIAL INH SCH ×4 (07:01→20:01)
[2017-08-29] MEDS: BUDESONIDE 0.5 MG/2 ML VIAL (PULMICORT) INH SCH ×2 (07:02→20:01)
--- NOTE | 2017-08-29 07:10 | DIAGNOSTIC IMAGING REPORT ---
HEAD WITHOUT CONTRAST (CT) CLINICAL HISTORY: 87 years-old Female presenting with ams. TECHNIQUE: Multidetector CT imaging of the head was performed without the use of intravenous contrast. IV contrast: None. A dose lowering technique was used consistent with the principles of ALARA (as low as reasonably achievable). COMPARISON: 06/21/2017. CT DOSE (mGy.cm): The estimated cumulative dose is 767.83 mGy.cm. FINDINGS: Benzol Operator topogram: Unremarkable. Proportional ventricular and sulcal prominence, likely age-related parenchymal volume loss. Periventricular and subcortical white matter hypoattenuation, nonspecific but likely indicative of chronic small vessel ischemic change. No mass effect or midline shift. No hemorrhage or acute territorial infarct. No extra-axial fluid collection. Paranasal sinuses and mastoid air cells clear. Calvarium intact. Old displaced nasal bone fractures partially visualized. IMPRESSION: 1. Chronic small vessel ischemic change. No acute intracranial abnormality. Electronically signed by: Eugene Peralta M.D. 08/29/2017 7:09 AM Dictated Date/Time: 08/29/2017 6:53 AM
[2017-08-29 07:38] LABS: CALCIUM 8.2 mg/dl (8.5-10.1); CREATININE 0.88 mg/dl (0.60-1.20); POTASSIUM 3.3 mmol/L (3.5-5.1)
[2017-08-29] MEDS: FUROSEMIDE INJ 40 MG in SYRINGE 0 ML IV SCH ×2 (08:35→16:31)
[2017-08-29] MEDS: POTASSIUM CHLORIDE 20 MEQ TABCR PO SCH ×2 (08:35→20:31)
[2017-08-29] MEDS: SERTRALINE HCL 50 MG TAB PO SCH (08:35)
[2017-08-29] MEDS: RIVAROXABAN 10 MG TAB PO SCH (08:36)
[2017-08-29] MEDS: DILTIAZEM HCL 120 MG CAPCR PO SCH (08:36)
[2017-08-29] MEDS: DOXYCYCLINE HYCLATE 100 MG CAP PO SCH ×2 (08:36→20:33)
[2017-08-29] MEDS ORDERED: HEPARIN SOD 5000 UNIT/0.5 ML CARP SQ SCH (09:00)
[2017-08-29] MEDS ORDERED: METOPROLOL SUCC 50MG EXT REL TAB PO SCH (09:00)
[2017-08-29] MEDS ORDERED: VANCOMYCIN IV 1,000 MG in SODIUM CHLORIDE 0.9% 250ML 250 ML IV SCH (09:00)
--- NOTE | 2017-08-29 09:02 | Pharmacy Progress Note ---
Pharmacy Abx Initial Consult Date of Service August 29, 2017. Pharmacy Dosing Scope Date of Consult: 08/29/17 Consultation requested by: Dr. Gomez Pharmacy is consulted to initiate Vancomycin IV dosing therapy, order appropriate labs and adjust drug dose/frequency. Subjective The patient is a 87 year old female admitted on August 29, 2017 at 03:08. Objective Height (Feet): 5 Height (Inches): 2.00 Weight (Kilograms): 118.500 (BMI 47.8) Vital Signs (Past 12Hrs) Vital Signs Past 12 Hours Date Time Temp Pulse Resp B/P (MAP) Pulse Ox O2 Delivery O2 Flow Rate FiO2 08/29/17 07:02 77 18 94 Room Air 08/29/17 07:01 36.6 61 22 164/82 (109) 100 Nebulizer 08/29/17 04:12 36.7 60 16 141/74 (96) 96 Nasal Cannula 2.0 08/29/17 03:30 36.7 60 16 141/74 97 Nasal Cannula 2.0 08/29/17 02:57 62 22 162/62 97 Room Air 08/29/17 02:08 65 08/29/17 01:14 66 23 161/72 97 Nasal Cannula 2.0 08/29/17 00:06 36.7 64 24 161/72 94 Nasal Cannula 2.0 08/28/17 22:54 68 24 142/74 97 Nasal Cannula 2.0 08/28/17 22:53 63 08/28/17 22:00 94 Nasal Cannula 2.0 08/28/17 22:00 94 Nasal Cannula 2.0 08/28/17 21:39 36.7 74 18 150/59 93 Room Air Lab Results (24Hrs) Laboratory Tests (24 Hours) Test 08/28/17 22:07 08/29/17 06:30 White Blood Count 8.58 K/uL (4.8-10.8) 8.07 K/uL (4.8-10.8) Red Blood Count 3.51 M/uL (4.2-5.4) L Hemoglobin 10.7 g/dL (12.0-16.0) L Hematocrit 32.8 % (37-47) L Mean Corpuscular Volume 93.4 fL (80-100) Mean Corpuscular Hemoglobin 30.5 pg (25-34) Mean Corpuscular Hemoglobin Concent 32.6 g/dl (32-36) Platelet Count 198 K/uL (130-400) Mean Platelet Volume 9.8 fL (7.4-10.4) Neutrophils (%) (Auto) 65.2 % Lymphocytes (%) (Auto) 18.2 % Monocytes (%) (Auto) 10.4 % Eosinophils (%) (Auto) 5.1 % Basophils (%) (Auto) 0.6 % Neutrophils # (Auto) 5.60 K/uL (1.4-6.5) Lymphocytes # (Auto) 1.56 K/uL (1.2-3.4) Monocytes # (Auto) 0.89 K/uL (0.11-0.59) H Eosinophils # (Auto) 0.44 K/uL (0-0.5) Basophils # (Auto) 0.05 K/uL (0-0.2) Micro Results Date/Time Source Procedure Growth Status 08/28/17 22:07 Blood Blood Culture Pending Received 08/28/17 22:01 Blood Blood Culture Pending Received Risk Factors for Resistance * Resident in a retirement or extended-care facility * Antimicrobial use within the last 90 days Bactrim for treatment of UTI. Was on prior to admission Assessment & Plan Assessment 87 year old female admitted for bilateral cellulitis. Patient has swelling of bilateral lower extremities including mini bullous formations on the left leg. Worsening redness on right lower leg. Prior to admission was being treated for UTI with Bactrim Plan Vancomycin for treatment of bilateral cellulitis Vancomycin IV * Est. PK parameters: VD 0.54 L/kg; Osei ~0.052 hr-1; T1/2 ~13.3; CrCl 57.2 * Loading dose: 2000 mg (16.7 mg/kg) * Maintenance dose: 1500 mg IV (12.6 mg/kg) every 18 hours * Goal trough level for cellulitis : 15 to 20 mcg/mL * Trough level ordered for 08/31/17 @ 0730. Checking trough level prior to true steady state. * A less than traditional dose and/or extended dosing interval has/have been selected due to likelihood of drug accumulation in obese patient. Pharmacy will continue to follow and will adjust dose/frequency as necessary. Thank you.
[2017-08-29] MEDS ORDERED: DILTIAZEM HCL 5 MG/ML 5 ML VIAL IV STA ×3 (12:02→12:53)
[2017-08-29] MEDS ORDERED: DILTIAZEM HCL 5 MG/ML 5 ML VIAL ONE (12:04)
[2017-08-29] MEDS ORDERED: METOPROLOL TARTRATE 1 MG/ML VIAL IV STA (12:53)
[2017-08-29] MEDS: METOPROLOL TARTRATE 1 MG/ML VIAL IV SCH ×2 (13:17→13:38)
[2017-08-29] MEDS ORDERED: HALOPERIDOL 5 MG TAB PO PRN (14:30)
[2017-08-29] MEDS ORDERED: METOPROLOL TARTRATE 25 MG TAB PO ONE (15:00)
--- NOTE | 2017-08-29 16:23 | Progress Note ---
Subjective Date of Service: August 29, 2017. Subjective Pt evaluation today including: conversation w/ patient, physical exam, chart review, lab review, review of inpatient medication list feels OK no significant complaint HPI and ROS VERY limited by dementia, but pleasant Problem List Medical Problems: (1) Asthma exacerbation Status: Acute (2) Atrial fibrillation Status: Acute (3) Bilateral lower leg cellulitis Status: Acute (4) Bilateral pneumonia Status: Acute (5) Cellulitis of right leg Status: Acute (6) CHF (congestive heart failure) Status: Acute (7) Congestive heart failure Status: Acute (8) Contusion of right shoulder Status: Acute (9) Dyspnea due to congestive heart failure Status: Acute (10) Facial contusion Status: Acute (11) Facial laceration Status: Acute (12) Failure of outpatient treatment Status: Acute (13) Fall Status: Acute (14) Fall Status: Acute (15) Knee pain, left Status: Acute (16) Left leg cellulitis Status: Acute (17) Lower extremity edema Status: Acute (18) Paroxysmal A-fib Status: Acute Review of Systems ROS otherwise unobtainable except for as above Objective Vital Signs Date Time Temp Pulse Resp B/P (MAP) Pulse Ox O2 Delivery O2 Flow Rate FiO2 08/29/17 16:00 94 Nasal Cannula 2.0 08/29/17 15:13 74 20 93 Nasal Cannula 2.0 08/29/17 15:01 36.8 107 18 156/84 (108) 94 Nasal Cannula 2.0 08/29/17 13:38 97 128/76 08/29/17 13:17 96 148/75 08/29/17 13:07 110 125/67 08/29/17 12:09 120 22 120/77 (91) 92 Nasal Cannula 2.0 08/29/17 12:00 Nasal Cannula 2.0 08/29/17 11:21 79 18 94 Room Air 08/29/17 11:20 36.7 62 22 151/66 (94) 94 Room Air 08/29/17 08:00 Room Air 08/29/17 07:02 77 18 94 Room Air 08/29/17 07:01 36.6 61 22 164/82 (109) 100 Nebulizer 08/29/17 04:12 36.7 60 16 141/74 (96) 96 Nasal Cannula 2.0 08/29/17 03:30 36.7 60 16 141/74 97 Nasal Cannula 2.0 08/29/17 02:57 62 22 162/62 97 Room Air 08/29/17 02:08 65 08/29/17 01:14 66 23 161/72 97 Nasal Cannula 2.0 08/29/17 00:06 36.7 64 24 161/72 94 Nasal Cannula 2.0 08/28/17 22:54 68 24 142/74 97 Nasal Cannula 2.0 08/28/17 22:53 63 08/28/17 22:00 94 Nasal Cannula 2.0 08/28/17 22:00 94 Nasal Cannula 2.0 08/28/17 21:39 36.7 74 18 150/59 93 Room Air Physical Exam General Appearance: no apparent distress Eyes: EOMI ENT: hearing grossly normal Neck: trachea midline Respiratory/Chest: no respiratory distress, no accessory muscle use, + rales ( faint bibasilar) Cardiovascular: + irregularly irregular Neurologic/Psychiatric: tankroom tender II-XII nml as tested, alert Skin: normal color, warm/dry Laboratory Results Last 24 Hours Test 08/28/17 22:07 08/28/17 22:16 08/28/17 22:28 08/28/17 22:45 White Blood Count 8.58 K/uL Red Blood Count 3.51 M/uL Hemoglobin 10.7 g/dL Hematocrit 32.8 % Mean Corpuscular Volume 93.4 fL Mean Corpuscular Hemoglobin 30.5 pg Mean Corpuscular Hemoglobin Concent 32.6 g/dl Platelet Count 198 K/uL Mean Platelet Volume 9.8 fL Neutrophils (%) (Auto) 65.2 % Lymphocytes (%) (Auto) 18.2 % Monocytes (%) (Auto) 10.4 % Eosinophils (%) (Auto) 5.1 % Basophils (%) (Auto) 0.6 % Neutrophils # (Auto) 5.60 K/uL Lymphocytes # (Auto) 1.56 K/uL Monocytes # (Auto) 0.89 K/uL Eosinophils # (Auto) 0.44 K/uL Basophils # (Auto) 0.05 K/uL RDW Standard Deviation 50.6 fL RDW Coefficient of Variation 14.7 % Immature Granulocyte % (Auto) 0.5 % Immature Granulocyte # (Auto) 0.04 K/uL Sodium Level 136 mmol/L Potassium Level 3.7 mmol/L Chloride Level 101 mmol/L Carbon Dioxide Level 27 mmol/L Anion Gap 8.0 mmol/L Blood Urea Nitrogen 17 mg/dl Creatinine 1.10 mg/dl Estimated GFR () 53.0 Estimated GFR (Non- 45.7 BUN/Creatinine Ratio 15.8 Random Glucose 126 mg/dl Calcium Level 8.6 mg/dl Total Bilirubin 0.3 mg/dl Direct Bilirubin 0.1 mg/dl Aspartate Amino Transf (AST/SGOT) 22 U/L Alanine Aminotransferase (ALT/SGPT) 17 U/L Alkaline Phosphatase 55 U/L Troponin I < 0.015 ng/ml Pro-B-Type Natriuretic Peptide 562 pg/ml Total Protein 7.2 gm/dl Albumin 3.2 gm/dl Lipase 149 U/L Bedside Lactic Acid Venous 2.28 mmol/L Venous Blood pH 7.43 Venous Blood Partial Pressure CO2 42 mmHg Venous Blood Partial Pressure O2 67 mmHg Venous Blood HCO3 28 mmol/L Venous Blood Oxygen Saturation 90.6 % Venous Blood Base Excess 3.1 mEq/L Urine Color YELLOW Urine Appearance CLEAR Urine pH 5.0 Urine Specific [place] 1.017 Urine Protein NEG Urine Glucose (UA) NEG Urine Ketones NEG Urine Occult Blood TRACE Urine Nitrite NEG Urine Bilirubin NEG Urine Urobilinogen NEG Urine Leukocyte Esterase NEG Urine WBC (Auto) 0 /hpf Urine RBC (Auto) 0-4 /hpf Urine Hyaline Casts (Auto) 1-5 /lpf Urine Epithelial Cells (Auto) 0-5 /lpf Urine Bacteria (Auto) NEG Test 08/29/17 06:30 White Blood Count 8.07 K/uL Red Blood Count 3.54 M/uL Hemoglobin 10.8 g/dL Hematocrit 32.9 % Mean Corpuscular Volume 92.9 fL Mean Corpuscular Hemoglobin 30.5 pg Mean Corpuscular Hemoglobin Concent 32.8 g/dl RDW Standard Deviation 49.8 fL RDW Coefficient of Variation 14.5 % Platelet Count 193 K/uL Mean Platelet Volume 10.0 fL Sodium Level 138 mmol/L Potassium Level 3.3 mmol/L Chloride Level 102 mmol/L Carbon Dioxide Level 29 mmol/L Anion Gap 7.0 mmol/L Blood Urea Nitrogen 14 mg/dl Creatinine 0.88 mg/dl Est Creatinine Clear Calc Drug Dose 57.2 ml/min Estimated GFR () 69.4 Estimated GFR (Non- 59.9 BUN/Creatinine Ratio 15.8 Random Glucose 97 mg/dl Calcium Level 8.2 mg/dl Assessment and Plan Altered mental status - suspect multifactorial delirium / encephalopathy afib RVR -rate control improving - was given IV dilt, IV metoprolol - will increase PO metoprolol and continue to monitor -given lack of other clear exacerbating factors for CHF - suspect it was rate related -is anticoagulated Acute exacerbation of diastolic CHF /HTN - continue rate control for afib, continue diuresis - echo pending - continue to follow, supportive care Chronic leg edema now with cellulitis/stasis dermatitis - Empiric treatment with doxycycline - Wound consulted - Recommend Jeannine boots, as patient unable to tolerate KERRI - May benefit from outpatient lymphedema clinic follow up Weakness/fall - OT/PT ordered COPD - stable - Supplemental O2 overnight - Continue home inhalers: DuoNeb, budesonide Dementia - Cont Donepezil. - Per daughter, she has a tendency to sundown and has required 1 to 1 obs in hospital previously - Can consider mild sedative and low-dose antipsychotic if needed only for severe agitation VTE ppx - SCDs - Xarelto, as above Full code
[2017-08-29] MEDS: LORAZEPAM 0.5 MG TAB PO PRN (17:32)
[2017-08-29] MEDS ORDERED: VANCOMYCIN IV 1,500 MG in SODIUM CHLORIDE 0.9% 500ML 500 ML IV SCH (20:00)
[2017-08-29] MEDS: DONEPEZIL HCL 5 MG TAB PO SCH (20:31)
[2017-08-29] MEDS: METOPROLOL SUCC 50MG EXT REL TAB PO SCH (20:32)
[2017-08-30] VITALS (11 sets, daily range): BP systolic 128–165; BP diastolic 64–89; PULSE 60–116; TEMP 36.5–37; O2SAT 93–98
[2017-08-30] MEDS: LORAZEPAM 0.5 MG TAB PO PRN ×2 (04:11→14:26)
[2017-08-30] MEDS: ALBUT/IPRATROP 3MG/0.5MG NEB 3 ML VIAL INH SCH (06:59)
[2017-08-30] MEDS: BUDESONIDE 0.5 MG/2 ML VIAL (PULMICORT) INH SCH ×2 (06:59→19:14)
[2017-08-30] MEDS: FUROSEMIDE INJ 40 MG in SYRINGE 0 ML IV SCH ×2 (08:14→16:07)
[2017-08-30] MEDS: DILTIAZEM HCL 120 MG CAPCR PO SCH (08:15)
[2017-08-30] MEDS: RIVAROXABAN 10 MG TAB PO SCH (08:15)
[2017-08-30] MEDS: DOXYCYCLINE HYCLATE 100 MG CAP PO SCH ×2 (08:15→20:52)
[2017-08-30] MEDS: METOPROLOL SUCC 50MG EXT REL TAB PO SCH (08:15)
[2017-08-30] MEDS: POTASSIUM CHLORIDE 20 MEQ TABCR PO SCH ×2 (08:16→20:52)
[2017-08-30] MEDS: SERTRALINE HCL 50 MG TAB PO SCH (08:16)
[2017-08-30 08:17] LABS: CALCIUM 8.4 mg/dl (8.5-10.1); CREATININE 0.82 mg/dl (0.60-1.20); POTASSIUM 3.9 mmol/L (3.5-5.1)
--- NOTE | 2017-08-30 10:00 | Cardiology Consultation ---
Cardiology Consultation Date of Consultation: August 30, 2017. Requesting Physician: Gloria Reason for Consultation: AF Pt evaluation today including: conversation w/ patient, physical exam, chart review, lab review, review of studies, review of inpatient medication list, conversation w/ attending History of Present Illness The patient is an 87-year-old woman with a history of paroxysmal atrial fibrillation and presumed diastolic heart failure was admitted to [facility] with mental status changes. She is felt to have an infectious process and also had some symptoms of dyspnea. She is felt to have an element of congestive heart failure and underwent diuresis as well as initiation of antibiotic therapy for presumed cellulitis. Patient did have some elevated heart rates and evidence of atrial fibrillation. This was punctuated by conversion pauses of up to the 6.9 seconds in duration. The patient suffers from significant dementia. She is not appear to report symptoms associated with the above problems. During these episodes of sinus pauses she was not noted to have symptoms. However, she has been in bed for the majority of her hospitalization. On an outpatient basis she is ambulatory. She generally uses a walker. She lives at an assisted living facility. She does have some difficulty with lower extremity edema and has been on a fairly aggressive diuretic regimen. Past Medical/Surgical History Asthma Cellulitis of lower extremities Depression Congestive heart failure, presumed diastolic Lower extremity edema Dementia Paroxysmal atrial fibrillation COPD Obesity Past surgical history: Eye surgery Family History Heart disease Hypertension Noncontributory given her advanced age Social History Smoking Status: Never Smoker History of Alcohol Use: No Currently a resident at [facility] Review of Systems Respiratory: + cough, + wheezing The patient denies any symptoms of pain, chest pain, dizziness, palpitations or dyspnea. However, she has significant cognitive issues and this may be unreliable. All Other Systems: Reviewed and Negative Allergies Coded Allergies: No Known Allergies (Unverified , 08/28/17) Medications Current Inpatient Medications Medications (Trade) Dose Ordered Sig/Bryon Route Start Time Stop Time Status Last Admin Dose Admin Acetaminophen (Tylenol Tab) 650 mg Q4H PRN PO 08/29/17 02:30 09/28/17 02:29 Al Hydrox/Mg Hydrox/Simethicone (Maalox Max Susp) 15 ml Q4H PRN PO 08/29/17 02:30 09/28/17 02:29 Magnesium Hydroxide (Milk Of Magnesia Susp) 30 ml Q12H PRN PO 08/29/17 02:30 09/28/17 02:29 Ondansetron HCl (Zofran Inj) 4 mg Q6H PRN IV 08/29/17 02:30 09/28/17 02:29 Nitroglycerin (Nitrostat Tab) 0.4 mg UD PRN SL 08/29/17 02:30 09/28/17 02:29 Polyethylene (Miralax Powder Packet) 17 gm DAILY PRN PO 08/29/17 02:30 09/28/17 02:29 Budesonide (Pulmicort Respules 0.5MG/ 2ML Neb Soln) 1 mg BIDR INH 08/29/17 08:00 09/28/17 07:59 08/30/17 06:59 1 MG Diltiazem HCl (Cardizem Cd Cap) 120 mg QAM PO 08/29/17 09:00 09/28/17 08:59 08/30/17 08:15 120 MG Donepezil HCl (Aricept Tab) 5 mg HS PO 08/29/17 21:00 09/28/17 20:59 08/29/17 20:31 5 MG Nystatin (Mycostatin Powder) 1 appln TID PRN EXT 08/29/17 02:30 09/28/17 02:29 Rivaroxaban (Xarelto Tab) 20 mg QAM PO 08/29/17 09:00 09/28/17 08:59 08/30/17 08:15 20 MG Sertraline HCl (Zoloft Tab) 25 mg QAM PO 08/29/17 09:00 09/28/17 08:59 08/30/17 08:16 25 MG Tramadol HCl (Ultram Tab) 50 mg Q6H PRN PO 08/29/17 02:30 09/28/17 02:29 Miscellaneous Information (Order Awaiting Action) 1 ea QS N/A 08/29/17 08:00 09/28/17 07:59 Albuterol/ Ipratropium (Duoneb) 3 ml QIDR INH 08/29/17 08:00 09/28/17 07:59 08/30/17 06:59 3 ML Furosemide 40 mg/ Syringe 4 ml @ 4 mls/min BID17 IV 08/29/17 09:00 09/28/17 08:59 08/30/17 08:14 4 MLS/MIN Potassium Chloride (Klor-Con Tab) 20 meq BID PO 08/29/17 09:00 09/28/17 08:59 08/30/17 08:16 20 MEQ Doxycycline Hyclate (Vibramycin Cap) 100 mg BID PO 08/29/17 09:00 09/08/17 08:59 08/30/17 08:15 100 MG Miscellaneous (Iv Fluids Completed) 1 ea PRN PRN N/A 08/29/17 05:45 08/29/18 05:44 Metoprolol Succinate (Toprol Xl Tab) 50 mg BID PO 08/29/17 21:00 09/28/17 20:59 08/30/17 08:15 50 MG Lorazepam (Ativan Tab) 0.5 mg Q6H PRN PO 08/29/17 17:00 09/28/17 16:59 08/30/17 04:11 0.5 MG Haloperidol (Haldol Tab) 1 mg Q12H PRN PO 08/30/17 08:30 09/29/17 08:29 Physical Exam Vital Signs Past 12 Hours Date Time Temp Pulse Resp B/P (MAP) Pulse Ox O2 Delivery O2 Flow Rate FiO2 08/30/17 08:00 Room Air 08/30/17 07:20 36.7 110 22 149/80 (103) 98 Nasal Cannula 3.0 08/30/17 06:59 93 18 93 Nasal Cannula 2.0 08/30/17 05:08 94 129/79 (96) 08/30/17 04:00 95 Nasal Cannula 2.0 08/30/17 03:24 37.0 101 18 165/89 (114) 95 Nasal Cannula 2.0 08/30/17 00:04 97 Nasal Cannula 2.0 08/29/17 22:57 36.7 117 18 143/84 (103) 95 Nasal Cannula 2.0 She is alert and oriented to person. Mood affect appear normal. She answered all questions appropriately, but it is unclear if her answers were reliable given her known cognitive dysfunction. Obese HEENT: Sclerae are anicteric. Pupils are equal and reactive to light and accommodation. Extraocular movements were intact. Neuro: Cranial nerves intact Neck: Examination of the submandibular region did not reveal any significant lymphadenopathy. Carotids are palpable bilaterally and free of bruits on auscultation. There was no evidence of jugular venous distention. The thyroid was not enlarged. Lungs: Lungs are clear to auscultation bilaterally. There are no rales wheezes or rhonchi. She has normal respiratory effort without use of accessory muscles. There is normal pulmonary excursion. Cardiac: The rhythm was irregular. S1 and S2 were normal. There are no murmurs on examination. The PMI was not markedly displaced on palpation. Abdomen: The abdomen was soft and nontender. Extremities: She has some chronic trophic changes in both lower extremities. She has an abrasion on the left knee. There was some erythema on both legs. Minimal edema. Skin: There are no rashes noted on examination today except the legs as noted above. Data Laboratory Results: Last 24 Hours Test 08/30/17 07:06 Sodium Level 139 mmol/L Potassium Level 3.9 mmol/L Chloride Level 104 mmol/L Carbon Dioxide Level 30 mmol/L Anion Gap 5.0 mmol/L Blood Urea Nitrogen 14 mg/dl Creatinine 0.82 mg/dl Est Creatinine Clear Calc Drug Dose 61.7 ml/min Estimated GFR () 75.6 Estimated GFR (Non- 65.3 BUN/Creatinine Ratio 17.0 Random Glucose 100 mg/dl Calcium Level 8.4 mg/dl Magnesium Level 2.2 mg/dl Imaging: CT scan of the head revealed chronic changes. Chest x-ray demonstrated cardiomegaly and mild pulmonary vascular congestion EKG: Atrial fibrillation and rapid ventricular response Telemetry reviewed: Atrial fibrillation with conversion pauses Echocardiogram performed September 2016 revealed preserved LV systolic function with mild LVH. There is some chamber enlargement involving the atria and right ventricle. No significant valvular disease. Assessment & Plan 1. Congestive heart failure: Presumed diastolic. Patient has some chronic dyspnea. There was some evidence of pulmonary vascular congestion on x-ray the time of admission. However, her BNP was normal. She did undergo an aggressive diuresis with intravenous Lasix. I think she can be safely return to her usual outpatient regimen of diuretic. Her lung examination is benign currently I do not think she has any residual pulmonary edema. 2. Atrial fibrillation: This is paroxysmal. Patient is often in sinus rhythm in the outpatient setting. She has no discernible symptoms better cognitive dysfunction makes assessment difficult. Her rate control appears suboptimal although she is currently ill. Her beta-marquise was increased in the outpatient setting recently. Given her significant conversion pauses in her likely need for permanent pacing I think temporary option is reduction in her beta-marquise dose to 50 milligrams of succinate daily. Once the patient undergoes pacemaker implantation we can be more aggressive with her rate control. There is no significant concern about slightly higher heart rates for few days. She has been maintained on Xarelto which seems appropriate given her renal function. 3. Conversion pauses: No symptoms although she has been bed-bound and her cognitive dysfunction may preclude an accurate assessment. I think the real risk to her is syncope and falling if this were to occur outside the hospital setting. 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 I think a permanent pacemaker would be appropriate. However, her comorbidities are significant. I think I would have to have a discussion with her daughter in order to determine if this is an appropriate treatment for her. Unfortunately, the timing of implantation will be dictated by the course of her infection as well as her current use of anticoagulants. I do not think we can accomplish this tomorrow. I think this should be performed on Sunday provided her hospital course progresses as anticipated.
[2017-08-30] MEDS ORDERED: ALBUT/IPRATROP 3MG/0.5MG NEB 3 ML VIAL INH PRN (11:00)
--- NOTE | 2017-08-30 17:10 | Family Medicine Progress Note ---
Progress Note Date of Service August 30, 2017. Subjective Pt evaluation today including: conversation w/ patient, physical exam, chart review, lab review, review of studies Pain: No pain reported this morning Voiding: no voiding problems, no incontinence Patient is resting comfortably in bed this morning with no acute complains. The patient has been having frequent pauses on telemetry but denies any symptoms of palpitations, shortness of breath, chest pain, or lightheadedness. The patient denies any pain in her legs at this time. States her shortness of breath has improved from admission. Constitutional: No fever, No chills, No sweats, No fatigue Respiratory: No cough, No sputum, No wheezing, No shortness of breath Cardiovascular: No chest pain, No palpitations Abdomen: No pain, No nausea, No vomiting, No diarrhea Musculoskeletal: No joint pain, No muscle pain, No calf pain Endo: No fatigue Medications Current Inpatient Medications Medications (Trade) Dose Ordered Sig/Bryon Route Start Time Stop Time Status Last Admin Dose Admin Acetaminophen (Tylenol Tab) 650 mg Q4H PRN PO 08/29/17 02:30 09/28/17 02:29 Al Hydrox/Mg Hydrox/Simethicone (Maalox Max Susp) 15 ml Q4H PRN PO 08/29/17 02:30 09/28/17 02:29 Magnesium Hydroxide (Milk Of Magnesia Susp) 30 ml Q12H PRN PO 08/29/17 02:30 09/28/17 02:29 Ondansetron HCl (Zofran Inj) 4 mg Q6H PRN IV 08/29/17 02:30 09/28/17 02:29 Nitroglycerin (Nitrostat Tab) 0.4 mg UD PRN SL 08/29/17 02:30 09/28/17 02:29 Polyethylene (Miralax Powder Packet) 17 gm DAILY PRN PO 08/29/17 02:30 09/28/17 02:29 Budesonide (Pulmicort Respules 0.5MG/ 2ML Neb Soln) 1 mg BIDR INH 08/29/17 08:00 09/28/17 07:59 08/30/17 06:59 1 MG Diltiazem HCl (Cardizem Cd Cap) 120 mg QAM PO 08/29/17 09:00 09/28/17 08:59 08/30/17 08:15 120 MG Donepezil HCl (Aricept Tab) 5 mg HS PO 08/29/17 21:00 09/28/17 20:59 08/29/17 20:31 5 MG Nystatin (Mycostatin Powder) 1 appln TID PRN EXT 08/29/17 02:30 09/28/17 02:29 Rivaroxaban (Xarelto Tab) 20 mg QAM PO 08/29/17 09:00 09/28/17 08:59 08/30/17 08:15 20 MG Sertraline HCl (Zoloft Tab) 25 mg QAM PO 08/29/17 09:00 09/28/17 08:59 08/30/17 08:16 25 MG Tramadol HCl (Ultram Tab) 50 mg Q6H PRN PO 08/29/17 02:30 09/28/17 02:29 Miscellaneous Information (Order Awaiting Action) 1 ea QS N/A 08/29/17 08:00 09/28/17 07:59 Furosemide 40 mg/ Syringe 4 ml @ 4 mls/min BID17 IV 08/29/17 09:00 09/28/17 08:59 08/30/17 16:07 4 MLS/MIN Potassium Chloride (Klor-Con Tab) 20 meq BID PO 08/29/17 09:00 09/28/17 08:59 08/30/17 08:16 20 MEQ Doxycycline Hyclate (Vibramycin Cap) 100 mg BID PO 08/29/17 09:00 09/08/17 08:59 08/30/17 08:15 100 MG Miscellaneous (Iv Fluids Completed) 1 ea PRN PRN N/A 08/29/17 05:45 08/29/18 05:44 Lorazepam (Ativan Tab) 0.5 mg Q6H PRN PO 08/29/17 17:00 09/28/17 16:59 08/30/17 14:26 0.5 MG Haloperidol (Haldol Tab) 1 mg Q12H PRN PO 08/30/17 08:30 09/29/17 08:29 Metoprolol Succinate (Toprol Xl Tab) 50 mg QAM PO 08/31/17 09:00 09/30/17 08:59 Objective Vital Signs Date Time Temp Pulse Resp B/P (MAP) Pulse Ox O2 Delivery O2 Flow Rate FiO2 08/30/17 16:08 36.5 60 18 131/64 (86) 96 Nasal Cannula 2.0 08/30/17 16:00 Nasal Cannula 2.0 08/30/17 12:00 Nasal Cannula 2.0 08/30/17 12:00 36.7 116 16 129/82 (98) 97 Nasal Cannula 2.0 08/30/17 10:02 36.7 105 15 128/75 (92) 97 Nasal Cannula 2.0 08/30/17 08:00 Room Air 08/30/17 07:20 36.7 110 22 149/80 (103) 98 Nasal Cannula 3.0 08/30/17 06:59 93 18 93 Nasal Cannula 2.0 08/30/17 05:08 94 129/79 (96) 08/30/17 04:00 95 Nasal Cannula 2.0 08/30/17 03:24 37.0 101 18 165/89 (114) 95 Nasal Cannula 2.0 08/30/17 00:04 97 Nasal Cannula 2.0 08/29/17 22:57 36.7 117 18 143/84 (103) 95 Nasal Cannula 2.0 08/29/17 20:01 104 18 97 Nasal Cannula 2.0 08/29/17 20:00 94 Nasal Cannula 2.0 08/29/17 19:05 36.8 109 20 126/84 (98) 94 Nasal Cannula 2.0 Physical Exam General Appearance: WD/WN, no apparent distress Eyes: normal inspection, sclerae normal Neck: supple, no carotid bruits Respiratory/Chest: chest non-tender, + decreased breath sounds, + crackles ( bases) Cardiovascular: no murmur, + irregularly irregular Abdomen: normal bowel sounds, non tender, soft Extremities: no calf tenderness, + pertinent finding (Erythema of left lower extremity) Neurologic/Psychiatric: + disoriented Laboratory Results Results Past 24 Hours Test 08/30/17 07:06 Range/Units Sodium Level 139 136-145 mmol/L Potassium Level 3.9 3.5-5.1 mmol/L Chloride Level 104 98-107 mmol/L Carbon Dioxide Level 30 21-32 mmol/L Anion Gap 5.0 3-11 mmol/L Blood Urea Nitrogen 14 7-18 mg/dl Creatinine 0.82 0.60-1.20 mg/dl Est Creatinine Clear Calc Drug Dose 61.7 ml/min Estimated GFR () 75.6 Estimated GFR (Non- 65.3 BUN/Creatinine Ratio 17.0 10-20 Random Glucose 100 70-99 mg/dl Calcium Level 8.4 8.5-10.1 mg/dl Magnesium Level 2.2 1.8-2.4 mg/dl Assessment and Plan Patient is an 87 year old female with a past medical history of chronic diastolic CHF, COPD, HTN, HLD, dementia, and morbid obesity that presents with AMS, Afib, and Lower Extremity Cellulitis Altered mental status - Suspect multifactorial delirium / encephalopathy Afib RVR - Current HR between 80-110 on PO Metoprolol and Diltiazem - Experiencing frequent pauses on Telemetry - Late this afternoon flipped back into NSR - Given lack of other clear exacerbating factors for CHF - suspect it was rate related - Holding Xarelto for anticipated Pacemaker placement on Sunday Acute exacerbation of diastolic CHF /HTN - continue rate control for afib, continue diuresis - continue to follow, supportive care Chronic leg edema now with cellulitis/stasis dermatitis - Improving - Doxycycline Day 2 - Wound consulted - Recommend Jeannine boots, as patient unable to tolerate KERRI - May benefit from outpatient lymphedema clinic follow up Weakness/fall - OT/PT ordered COPD - stable - Supplemental O2 overnight - Continue home inhalers: DuoNeb, budesonide Dementia - Cont Donepezil. - Per daughter, she has a tendency to and has required 1 to 1 obs in hospital previously - Given Haldol 5mg PO yesterday for agitation - Can consider mild sedative and low-dose antipsychotic if needed only for severe agitation VTE ppx - SCDs - Holding Xarelto Full code Resident Physician Supervision Note: I interviewed and examined the patient. Discussed with Dr. Brooks and agree with findings and plan as documented in the note. Any exceptions or clarifications are listed here: None Documented By: Jefferson Castro no meaingful HPI or ROS obtainable pt appearing comfortable eating lunch has had pauses without sx vitals noted nad breathing unlabored no pallor or icterus - predominantly afib on monitor with pauses, then mid afternoon converts to NSR afib/sick sinus syndrome -for pacer -extensive d/w dtr who asked good questions/expressed understanding and noted that mom's quality of life is good despite the dementia and agrees pacer would be favorable venous stasis -explained in depth to dtr acute on chronic diastolic CHF -anneliese afib/rate related - now improved otherwise as above Resident Tracking Resident Involvement: Resident Care Provided Care Provided: Adult Hospital Medicine
[2017-08-30] MEDS: DONEPEZIL HCL 5 MG TAB PO SCH (20:52)
[2017-08-31] VITALS (8 sets, daily range): BP systolic 132–169; BP diastolic 73–85; PULSE 61–93; TEMP 36.6–37; O2SAT 92–98
[2017-08-31] MEDS: LORAZEPAM 0.5 MG TAB PO PRN ×3 (02:14→23:51)
[2017-08-31] MEDS: BUDESONIDE 0.5 MG/2 ML VIAL (PULMICORT) INH SCH ×2 (07:11→19:53)
[2017-08-31 07:15] LABS: CREATININE 0.87 mg/dl (0.60-1.20)
[2017-08-31 07:45] LABS: HEMATOCRIT 35.5 % (37-47); HEMOGLOBIN 11.6 g/dL (12.0-16.0); MEAN CELL VOLUME 95.2 fL (80-100); MEAN CORPUSCULAR HEMOGLOBIN 31.1 pg (25-34); MEAN CORPUSCULAR HGB CONC 32.7 g/dl (32-36); PLATELET COUNT 206 K/uL (130-400); RED CELL DISTRIBUTION WIDTH CV 14.6 % (11.5-14.5); RED CELL DISTRIBUTION WIDTH SD 50.6 fL (36.4-46.3); WHITE BLOOD COUNT 7.69 K/uL (4.8-10.8)
[2017-08-31 08:26] LABS: CALCIUM 8.6 mg/dl (8.5-10.1); CREATININE 0.91 mg/dl (0.60-1.20); POTASSIUM 4.1 mmol/L (3.5-5.1)
[2017-08-31] MEDS: SERTRALINE HCL 50 MG TAB PO SCH (08:35)
[2017-08-31] MEDS: METOPROLOL SUCC 50MG EXT REL TAB PO SCH (08:35)
[2017-08-31] MEDS: FUROSEMIDE INJ 40 MG in SYRINGE 0 ML IV SCH ×2 (08:35→15:54)
[2017-08-31] MEDS: DILTIAZEM HCL 120 MG CAPCR PO SCH (08:36)
[2017-08-31] MEDS: POTASSIUM CHLORIDE 20 MEQ TABCR PO SCH ×2 (08:37→20:32)
[2017-08-31] MEDS: DOXYCYCLINE HYCLATE 100 MG CAP PO SCH ×2 (08:37→20:32)
[2017-08-31] MEDS: RIVAROXABAN 10 MG TAB PO SCH (08:37)
--- NOTE | 2017-08-31 10:32 | Family Medicine Progress Note ---
Progress Note Date of Service August 31, 2017. Subjective Pt evaluation today including: conversation w/ patient, physical exam, chart review, lab review, conversation w/ senior application security consultant Pain: None Voiding: newell catheter in place No issues Notes she is comfortable No interval issues overnight; does have WASTE SPECIALIST sitting with patient because of intermittent agitation yesterday No nursing concerns Discussed with Dr. Cannon; plan for pacemaker on Sunday No pauses on monitor overnight. Additional Comments: A 10 point review of systems was negative unless stated above. Medications Current Inpatient Medications Medications (Trade) Dose Ordered Sig/Bryon Route Start Time Stop Time Status Last Admin Dose Admin Acetaminophen (Tylenol Tab) 650 mg Q4H PRN PO 08/29/17 02:30 09/28/17 02:29 Al Hydrox/Mg Hydrox/Simethicone (Maalox Max Susp) 15 ml Q4H PRN PO 08/29/17 02:30 09/28/17 02:29 Magnesium Hydroxide (Milk Of Magnesia Susp) 30 ml Q12H PRN PO 08/29/17 02:30 09/28/17 02:29 Ondansetron HCl (Zofran Inj) 4 mg Q6H PRN IV 08/29/17 02:30 09/28/17 02:29 Nitroglycerin (Nitrostat Tab) 0.4 mg UD PRN SL 08/29/17 02:30 09/28/17 02:29 Polyethylene (Miralax Powder Packet) 17 gm DAILY PRN PO 08/29/17 02:30 09/28/17 02:29 Budesonide (Pulmicort Respules 0.5MG/ 2ML Neb Soln) 1 mg BIDR INH 08/29/17 08:00 09/28/17 07:59 08/31/17 07:11 1 MG Diltiazem HCl (Cardizem Cd Cap) 120 mg QAM PO 08/29/17 09:00 09/28/17 08:59 08/31/17 08:36 120 MG Donepezil HCl (Aricept Tab) 5 mg HS PO 08/29/17 21:00 09/28/17 20:59 08/30/17 20:52 5 MG Nystatin (Mycostatin Powder) 1 appln TID PRN EXT 08/29/17 02:30 09/28/17 02:29 Rivaroxaban (Xarelto Tab) 20 mg QAM PO 08/29/17 09:00 09/28/17 08:59 08/31/17 08:37 20 MG Sertraline HCl (Zoloft Tab) 25 mg QAM PO 08/29/17 09:00 09/28/17 08:59 08/31/17 08:35 25 MG Tramadol HCl (Ultram Tab) 50 mg Q6H PRN PO 08/29/17 02:30 09/28/17 02:29 Miscellaneous Information (Order Awaiting Action) 1 ea QS N/A 08/29/17 08:00 09/28/17 07:59 Furosemide 40 mg/ Syringe 4 ml @ 4 mls/min BID17 IV 08/29/17 09:00 09/28/17 08:59 08/31/17 08:35 4 MLS/MIN Potassium Chloride (Klor-Con Tab) 20 meq BID PO 08/29/17 09:00 09/28/17 08:59 08/31/17 08:37 20 MEQ Doxycycline Hyclate (Vibramycin Cap) 100 mg BID PO 08/29/17 09:00 09/08/17 08:59 08/31/17 08:37 100 MG Miscellaneous (Iv Fluids Completed) 1 ea PRN PRN N/A 08/29/17 05:45 08/29/18 05:44 Lorazepam (Ativan Tab) 0.5 mg Q6H PRN PO 08/29/17 17:00 09/28/17 16:59 08/31/17 02:14 0.5 MG Haloperidol (Haldol Tab) 1 mg Q12H PRN PO 08/30/17 08:30 09/29/17 08:29 Metoprolol Succinate (Toprol Xl Tab) 50 mg QAM PO 08/31/17 09:00 09/30/17 08:59 08/31/17 08:35 50 MG Objective Vital Signs Date Time Temp Pulse Resp B/P (MAP) Pulse Ox O2 Delivery O2 Flow Rate FiO2 08/31/17 07:12 67 18 96 Nasal Cannula 2.0 08/31/17 06:49 36.8 69 24 132/73 (92) 92 Nasal Cannula 2.0 08/31/17 04:00 Nasal Cannula 2.0 08/31/17 03:41 36.9 65 18 138/77 (97) 98 Nasal Cannula 2.0 08/31/17 00:00 Nasal Cannula 2.0 08/30/17 20:00 Nasal Cannula 2.0 08/30/17 19:52 36.8 64 18 141/74 (96) 95 Nasal Cannula 2.0 08/30/17 19:14 63 18 97 Nasal Cannula 2.0 08/30/17 16:08 36.5 60 18 131/64 (86) 96 Nasal Cannula 2.0 08/30/17 16:00 Nasal Cannula 2.0 08/30/17 12:00 Nasal Cannula 2.0 08/30/17 12:00 36.7 116 16 129/82 (98) 97 Nasal Cannula 2.0 Physical Exam General Appearance: WD/WN, no apparent distress, + obese Eyes: normal inspection, PERRL, EOMI ENT: hearing grossly normal, pharynx normal Neck: supple, no adenopathy, no JVD Respiratory/Chest: lungs clear, no respiratory distress Cardiovascular: regular rate, rhythm, no gallop, no murmur Abdomen: normal bowel sounds, non tender, soft Extremities: + pertinent finding (erythema and chronic venous stasis changes on left lower extremity; no pain to palpation) Neurologic/Psychiatric: alert Skin: normal color, warm/dry, no rash Lymphatic: no adenopathy Laboratory Results Last 24 Hours Test 08/31/17 06:09 08/31/17 07:56 White Blood Count 7.69 K/uL Red Blood Count 3.73 M/uL Hemoglobin 11.6 g/dL Hematocrit 35.5 % Mean Corpuscular Volume 95.2 fL Mean Corpuscular Hemoglobin 31.1 pg Mean Corpuscular Hemoglobin Concent 32.7 g/dl RDW Standard Deviation 50.6 fL RDW Coefficient of Variation 14.6 % Platelet Count 206 K/uL Mean Platelet Volume 10.0 fL Creatinine 0.87 mg/dl 0.91 mg/dl Est Creatinine Clear Calc Drug Dose 58.1 ml/min 55.6 ml/min Estimated GFR () 70.4 66.7 Estimated GFR (Non- 60.7 57.5 Sodium Level 137 mmol/L Potassium Level 4.1 mmol/L Chloride Level 103 mmol/L Carbon Dioxide Level 30 mmol/L Anion Gap 4.0 mmol/L Blood Urea Nitrogen 22 mg/dl BUN/Creatinine Ratio 24.5 Random Glucose 138 mg/dl Calcium Level 8.6 mg/dl Magnesium Level 2.2 mg/dl Assessment and Plan Patient is an 87 year old female with a past medical history of chronic diastolic CHF, COPD, HTN, HLD, dementia, and morbid obesity that presents with AMS, Afib, and Lower Extremity Cellulitis - Paroxysmal Atrial Fibrillation: Patient is currently in sinus rhythm. Hemodynamically stable. Asymptomatic when in Afib. Toprol dose cut to 50 mg daily. Continue Diltazem 120 mg daily. Continue Xarelto. Will hold Xarelto starting 09/02 for pacemaker placement on 09/03; no need to bridge. Cardiology recommendations appreciated - Pauses: Only occur when patient is trying to convert from afib to sinus. Currently in sinus so risk of pauses for now seems low unless she goes back in to Afib. Continue to follow in telemetry. Asymptomatic with pauses and duration usually 5-6 seconds. None overnight. Continue to follow. - Chronic leg edema now with cellulitis/stasis dermatitis: Continue Doxycycline day 7. Would continue for 10 day course. TALHA boot. Wound care nurse. - Altered mental status: Dementia with possible superimposed component of left lower extremity cellulitis - Acute exacerbation of diastolic CHF: resolved, currently euvolemic. Follow daily I/O and weights/ - COPD: No evidence of exacerbation at this time. DuoNeb, Budesonide. Nasal cannula O2 overnight as needed. - Dementia with and Agitation: Continue Donepezil. Haldol and Lorazepam PRN for agitation - DVT Prophylaxis: SCD and Xarelto/ - Code Status: Level I Full Code - Disposition: Telemetry for the . Pacemaker planned for Sunday Resident Physician Supervision Note: I interviewed and examined the patient. Discussed with Dr. Martell and agree with findings and plan as documented in the note. Any exceptions or clarifications are listed here: None Documented By: Jefferson Castro no meaningful HPI or ROS for pacer as soon as can be feasibly placed chacha noted nad breathing unlabored no pallor or icterus sick sinus syndrome - continue on monitor w pacer pads on, continue supportive care, for pacer once possible Continued [facility] stay due to: abnormal vital signs Discharge planning: uncertain
--- NOTE | 2017-08-31 14:42 | Cardiology Follow-Up ---
Subjective Date of Service: August 31, 2017. Pt evaluation today including: conversation w/ patient, physical exam, chart review, lab review, review of studies, review of inpatient medication list, conversation w/ attending History of Present Illness This morning the patient claims to be feeling well. She did not verbalize any complaints. She did not endorse any symptoms of pain or breathing difficulty. Apparently she ate a good breakfast. Social History Smoking Status: Never Smoker History of Alcohol Use: No Review of Systems Respiratory: No cough, No sputum, No wheezing, No shortness of breath Cardiac: No chest pain, No palpitations The patient denies any symptoms of pain, chest pain, dizziness, palpitations or dyspnea. However, she has significant cognitive issues and this may be unreliable. Objective Vital Signs Past 12 Hours Date Time Temp Pulse Resp B/P (MAP) Pulse Ox O2 Delivery O2 Flow Rate FiO2 08/31/17 12:17 Nasal Cannula 2.0 08/31/17 12:00 Nasal Cannula 2.0 08/31/17 10:33 37.0 69 17 158/85 (109) 97 Nasal Cannula 2.0 08/31/17 08:00 Nasal Cannula 2.0 08/31/17 07:12 67 18 96 Nasal Cannula 2.0 08/31/17 06:49 36.8 69 24 132/73 (92) 92 Nasal Cannula 2.0 08/31/17 04:00 Nasal Cannula 2.0 08/31/17 03:41 36.9 65 18 138/77 (97) 98 Nasal Cannula 2.0 Last Recorded Weight-Kilograms: 119.600 Intake & Output 8-Hour Column 08/31/17 08/31/17 09/01/17 15:59 23:59 07:59 Intake Total 540 ml Output Total 900 ml Balance -360 ml 24-Hour Column 09/01/17 07:59 Intake Total 540 ml Output Total 900 ml Balance -360 ml Physical Exam She is alert and oriented to person. Mood affect appear normal. She answered all questions appropriately, but it is unclear if her answers were reliable given her known cognitive dysfunction. Obese HEENT: Sclerae are anicteric. Pupils are equal and reactive to light and accommodation. Extraocular movements were intact. Neuro: Cranial nerves intact Neck: Examination of the submandibular region did not reveal any significant lymphadenopathy. Carotids are palpable bilaterally and free of bruits on auscultation. There was no evidence of jugular venous distention. The thyroid was not enlarged. Lungs: Lungs are clear to auscultation bilaterally. There are no rales wheezes or rhonchi. She has normal respiratory effort without use of accessory muscles. There is normal pulmonary excursion. Cardiac: The rhythm was irregular. S1 and S2 were normal. There are no murmurs on examination. The PMI was not markedly displaced on palpation. Abdomen: The abdomen was soft and nontender. Extremities: She has some chronic trophic changes in both lower extremities. She has an abrasion on the left knee. There was some erythema on both legs. Minimal edema. Skin: There are no rashes noted on examination today except the legs as noted above. Data Laboratory Results: Last 24 Hours Test 08/31/17 06:09 08/31/17 07:56 White Blood Count 7.69 K/uL Red Blood Count 3.73 M/uL Hemoglobin 11.6 g/dL Hematocrit 35.5 % Mean Corpuscular Volume 95.2 fL Mean Corpuscular Hemoglobin 31.1 pg Mean Corpuscular Hemoglobin Concent 32.7 g/dl RDW Standard Deviation 50.6 fL RDW Coefficient of Variation 14.6 % Platelet Count 206 K/uL Mean Platelet Volume 10.0 fL Creatinine 0.87 mg/dl 0.91 mg/dl Est Creatinine Clear Calc Drug Dose 58.1 ml/min 55.6 ml/min Estimated GFR () 70.4 66.7 Estimated GFR (Non- 60.7 57.5 Sodium Level 137 mmol/L Potassium Level 4.1 mmol/L Chloride Level 103 mmol/L Carbon Dioxide Level 30 mmol/L Anion Gap 4.0 mmol/L Blood Urea Nitrogen 22 mg/dl BUN/Creatinine Ratio 24.5 Random Glucose 138 mg/dl Calcium Level 8.6 mg/dl Magnesium Level 2.2 mg/dl Imaging: EKG: Telemetry reviewed: Assessment and Plan 1. Congestive heart failure: Presumed diastolic. Well compensated currently. Return to her usual outpatient diuretic regimen. 2. Atrial fibrillation: She converted to sinus rhythm yesterday afternoon. She has been maintaining sinus rhythm currently. She has been maintained on Xarelto chronically. 3. Conversion pauses: 1 conversion pause yesterday afternoon. This all she maintained sinus rhythm or potentially maintains atrial fibrillation she is not likely to have any difficulties. I did stop her evening dose of metoprolol yesterday in the hopes of reducing the duration of her conversion pauses should she continue to cycle in and out of atrial fibrillation. I do think she meets criteria for permanent pacemaker based on what we have seen. I did discuss this with her daughter yesterday. Due to some issues with her anticoagulation we delayed implantation until Sunday. She should not have Xarelto on Sunday or Sunday. Will plan for implant on Sunday pending other issues.
[2017-08-31] MEDS ORDERED: VANCOMYCIN TROUGH ONE (17:30)
[2017-08-31] MEDS: DONEPEZIL HCL 5 MG TAB PO SCH (20:32)
[2017-09-01] VITALS (8 sets, daily range): BP systolic 114–156; BP diastolic 68–98; PULSE 65–122; TEMP 36.4–37; O2SAT 94–96
[2017-09-01] MEDS: HALOPERIDOL 1 MG TAB PO PRN ×2 (04:15→15:21)
[2017-09-01] MEDS: BUDESONIDE 0.5 MG/2 ML VIAL (PULMICORT) INH SCH ×2 (07:10→19:14)
[2017-09-01 07:23] LABS: HEMATOCRIT 34.9 % (37-47); HEMOGLOBIN 11.4 g/dL (12.0-16.0); MEAN CELL VOLUME 94.1 fL (80-100); MEAN CORPUSCULAR HEMOGLOBIN 30.7 pg (25-34); MEAN CORPUSCULAR HGB CONC 32.7 g/dl (32-36); MEAN PLATELET VOLUME 10.1 fL (7.4-10.4); PLATELET COUNT 213 K/uL (130-400); RED CELL DISTRIBUTION WIDTH CV 14.2 % (11.5-14.5); RED CELL DISTRIBUTION WIDTH SD 49.4 fL (36.4-46.3); WHITE BLOOD COUNT 8.13 K/uL (4.8-10.8)
[2017-09-01] MEDS: POTASSIUM CHLORIDE 20 MEQ TABCR PO SCH ×2 (07:28→20:27)
[2017-09-01] MEDS: RIVAROXABAN 10 MG TAB PO SCH (07:28)
[2017-09-01] MEDS: DOXYCYCLINE HYCLATE 100 MG CAP PO SCH ×2 (07:28→20:27)
[2017-09-01] MEDS: METOPROLOL SUCC 50MG EXT REL TAB PO SCH (07:28)
[2017-09-01] MEDS: DILTIAZEM HCL 120 MG CAPCR PO SCH (07:28)
[2017-09-01] MEDS: SERTRALINE HCL 50 MG TAB PO SCH (07:29)
[2017-09-01 07:48] LABS: CALCIUM 8.5 mg/dl (8.5-10.1); CREATININE 0.63 mg/dl (0.60-1.20); POTASSIUM 3.7 mmol/L (3.5-5.1)
[2017-09-01] MEDS: FUROSEMIDE INJ 40 MG in SYRINGE 0 ML IV SCH ×2 (08:13→16:30)
[2017-09-01] MEDS: LORAZEPAM 0.5 MG TAB PO PRN ×3 (11:39→23:40)
--- NOTE | 2017-09-01 13:42 | Family Medicine Progress Note ---
Progress Note Date of Service September 01, 2017. Subjective Pt evaluation today including: conversation w/ patient Voiding: no voiding problems asymptomatic, back in afib, had some pauses overnight. had a 9 sec pause this morning no concerns Constitutional: No fever, No chills Respiratory: No cough, No sputum, No shortness of breath, No dyspnea on exertion Cardiovascular: No chest pain Abdomen: No pain, No nausea, No vomiting, No diarrhea Female : No dysuria, No urinary frequency Objective Vital Signs Date Time Temp Pulse Resp B/P (MAP) Pulse Ox O2 Delivery O2 Flow Rate FiO2 09/01/17 15:04 36.4 104 18 132/70 (90) 96 Nasal Cannula 2.0 09/01/17 12:00 Nasal Cannula 2.0 09/01/17 11:45 37.0 100 18 132/68 (89) 95 2.0 09/01/17 08:00 Nasal Cannula 2.0 09/01/17 07:11 106 18 94 Nasal Cannula 2.0 09/01/17 07:10 36.7 106 20 129/83 (98) 94 Nasal Cannula 2.0 09/01/17 04:32 36.7 65 20 156/72 (100) 95 Nasal Cannula 09/01/17 04:00 Nasal Cannula 2.0 09/01/17 00:00 Nasal Cannula 2.0 08/31/17 23:26 37.0 67 22 169/83 (111) 93 Nasal Cannula 2.0 08/31/17 20:00 Nasal Cannula 2.0 08/31/17 19:53 85 18 96 Nasal Cannula 2.0 08/31/17 19:37 36.7 93 20 150/81 (104) 95 Nasal Cannula 2.0 Physical Exam General Appearance: no apparent distress Eyes: PERRL, EOMI ENT: hearing grossly normal Neck: no adenopathy, no JVD Respiratory/Chest: lungs clear, normal breath sounds, no respiratory distress, no accessory muscle use Cardiovascular: + irregularly irregular Abdomen: normal bowel sounds, non tender, soft Extremities: non-tender Neurologic/Psychiatric: alert, normal mood/affect Laboratory Results Last 24 Hours Test 09/01/17 06:33 White Blood Count 8.13 K/uL Red Blood Count 3.71 M/uL Hemoglobin 11.4 g/dL Hematocrit 34.9 % Mean Corpuscular Volume 94.1 fL Mean Corpuscular Hemoglobin 30.7 pg Mean Corpuscular Hemoglobin Concent 32.7 g/dl RDW Standard Deviation 49.4 fL RDW Coefficient of Variation 14.2 % Platelet Count 213 K/uL Mean Platelet Volume 10.1 fL Sodium Level 138 mmol/L Potassium Level 3.7 mmol/L Chloride Level 102 mmol/L Carbon Dioxide Level 31 mmol/L Anion Gap 5.0 mmol/L Blood Urea Nitrogen 20 mg/dl Creatinine 0.63 mg/dl Est Creatinine Clear Calc Drug Dose 79.7 ml/min Estimated GFR () 94.8 Estimated GFR (Non- 81.8 BUN/Creatinine Ratio 31.0 Random Glucose 89 mg/dl Calcium Level 8.5 mg/dl Assessment and Plan Patient is an 87 year old female with a past medical history of chronic diastolic CHF, COPD, HTN, HLD, dementia, and morbid obesity that presents with AMS, Afib, and Lower Extremity Cellulitis - Paroxysmal Atrial Fibrillation/ SIck Sinus: Patient is currently in Afib. Did have a 9 sec pause today, asymptomatic. Hemodynamically stable. Toprol 50 mg daily. Continue Diltazem 120 mg daily. Continue Xarelto. hold Xarelto starting 09/02 for pacemaker placement on 09/03; no need to bridge. Cardiology recommendations appreciated. Continue to follow in telemetry. Asymptomatic with pauses and duration usually 5-6 seconds. None overnight. Continue to follow. Pacer pads - Chronic leg edema now with cellulitis/stasis dermatitis: Continue Doxycycline day 7. Would continue for 10 day course. TALHA boot. Wound care nurse. - Altered mental status: Dementia with possible superimposed component of left lower extremity cellulitis - Acute exacerbation of diastolic CHF: resolved, currently euvolemic. Follow daily I/O and weights/ - COPD: No evidence of exacerbation at this time. DuoNeb, Budesonide. Nasal cannula O2 overnight as needed. - Dementia with and Agitation: Continue Donepezil. Haldol and Lorazepam PRN for agitation - DVT Prophylaxis: SCD and Xarelto/ - Code Status: Level I Full Code - Disposition: Telemetry for the . Pacemaker planned for Sunday Resident Physician Supervision Note: I interviewed and examined the patient. Discussed with Dr. Christianson and agree with findings and plan as documented in the note. Any exceptions or clarifications are listed here: None Documented By: Jefferson Castro no HPI or ROS obtainable no complaints nursing notes no problems - had about an 8 second pause, no symptoms vitals noted nad breathig unlabored no pallor or icterus, lungs clear sick sinus -asymptomatic but very concerning rhythms, for pacer -with slow and pauses currently being more of a problem than tachycardia - will reduce dilt to 90mg for now acute on chronic diastolic CHF in the setting of afib and inappropriate bradyarrhythmias - now euvolemic
[2017-09-01] MEDS: DONEPEZIL HCL 5 MG TAB PO SCH (20:27)
[2017-09-02] VITALS (7 sets, daily range): BP systolic 112–163; BP diastolic 61–90; PULSE 67–135; TEMP 36.6–37.2; O2SAT 93–97
[2017-09-02] MEDS: BUDESONIDE 0.5 MG/2 ML VIAL (PULMICORT) INH SCH ×2 (06:48→19:04)
[2017-09-02 07:02] LABS: HEMATOCRIT 42.2 % (37-47); HEMOGLOBIN 13.7 g/dL (12.0-16.0); MEAN CELL VOLUME 94.2 fL (80-100); MEAN CORPUSCULAR HEMOGLOBIN 30.6 pg (25-34); MEAN CORPUSCULAR HGB CONC 32.5 g/dl (32-36); PLATELET COUNT 241 K/uL (130-400); RED CELL DISTRIBUTION WIDTH SD 48.6 fL (36.4-46.3); WHITE BLOOD COUNT 8.58 K/uL (4.8-10.8)
[2017-09-02 07:36] LABS: CALCIUM 9.1 mg/dl (8.5-10.1); CREATININE 0.78 mg/dl (0.60-1.20)
[2017-09-02] MEDS: DILTIAZEM SR 60 MG CAP PO SCH (07:54)
[2017-09-02] MEDS: LORAZEPAM 0.5 MG TAB PO PRN ×2 (07:54→18:23)
[2017-09-02] MEDS: DOXYCYCLINE HYCLATE 100 MG CAP PO SCH ×2 (07:54→20:51)
[2017-09-02] MEDS: FUROSEMIDE INJ 40 MG in SYRINGE 0 ML IV SCH ×2 (07:54→16:09)
[2017-09-02] MEDS: METOPROLOL SUCC 50MG EXT REL TAB PO SCH (07:55)
[2017-09-02] MEDS: POTASSIUM CHLORIDE 20 MEQ TABCR PO SCH ×2 (07:55→20:51)
[2017-09-02] MEDS: SERTRALINE HCL 50 MG TAB PO SCH (07:55)
[2017-09-02] MEDS: HALOPERIDOL 1 MG TAB PO PRN (10:44)
--- NOTE | 2017-09-02 10:58 | Family Medicine Progress Note ---
Progress Note Date of Service September 02, 2017. Subjective no concerns, No acute /overnight events Constitutional: No fever, No chills ENT: No hearing loss Respiratory: No cough, No sputum, No shortness of breath, No dyspnea on exertion Cardiovascular: No chest pain Abdomen: No pain, No nausea Female : No dysuria, No urinary frequency Medications Medications (Trade) Dose Ordered Sig/Bryon Route Start Time Stop Time Status Last Admin Dose Admin Diltiazem HCl (Cardizem Sr) 60 mg QAM PO 09/02/17 09:00 09/28/17 08:59 09/02/17 07:54 60 MG Objective Vital Signs Date Time Temp Pulse Resp B/P (MAP) Pulse Ox O2 Delivery O2 Flow Rate FiO2 09/02/17 08:00 Nasal Cannula 2.0 09/02/17 06:51 108 16 97 Nasal Cannula 2.0 09/02/17 04:15 36.6 71 21 145/89 (107) 97 Nasal Cannula 2.0 09/02/17 04:00 Nasal Cannula 2.0 09/01/17 23:59 Nasal Cannula 2.0 09/01/17 23:42 36.7 122 22 152/98 (116) 96 Nasal Cannula 2.0 09/01/17 20:11 Room Air 09/01/17 19:20 36.9 108 20 114/74 (87) 94 Room Air 09/01/17 19:14 104 16 94 Nasal Cannula 2.0 09/01/17 16:00 Nasal Cannula 2.0 09/01/17 15:04 36.4 104 18 132/70 (90) 96 Nasal Cannula 2.0 09/01/17 12:00 Nasal Cannula 2.0 09/01/17 11:45 37.0 100 18 132/68 (89) 95 2.0 Physical Exam General Appearance: no apparent distress Eyes: PERRL, EOMI ENT: hearing grossly normal Neck: no adenopathy, no JVD Respiratory/Chest: lungs clear, normal breath sounds, no respiratory distress, no accessory muscle use Cardiovascular: + irregularly irregular Abdomen: normal bowel sounds, non tender, soft Extremities: non-tender, no calf tenderness, + pedal edema (trace) Neurologic/Psychiatric: alert Laboratory Results Last 24 Hours Test 09/02/17 06:23 White Blood Count 8.58 K/uL Red Blood Count 4.48 M/uL Hemoglobin 13.7 g/dL Hematocrit 42.2 % Mean Corpuscular Volume 94.2 fL Mean Corpuscular Hemoglobin 30.6 pg Mean Corpuscular Hemoglobin Concent 32.5 g/dl RDW Standard Deviation 48.6 fL RDW Coefficient of Variation 14.0 % Platelet Count 241 K/uL Mean Platelet Volume 10.0 fL Sodium Level 137 mmol/L Potassium Level 4.0 mmol/L Chloride Level 100 mmol/L Carbon Dioxide Level 31 mmol/L Anion Gap 6.0 mmol/L Blood Urea Nitrogen 18 mg/dl Creatinine 0.78 mg/dl Est Creatinine Clear Calc Drug Dose 64.2 ml/min Estimated GFR () 80.3 Estimated GFR (Non- 69.3 BUN/Creatinine Ratio 22.7 Random Glucose 100 mg/dl Calcium Level 9.1 mg/dl Assessment and Plan Patient is an 87 year old female with a past medical history of chronic diastolic CHF, COPD, HTN, HLD, dementia, and morbid obesity that presents with AMS, Afib, and Lower Extremity Cellulitis - Paroxysmal Atrial Fibrillation/ Sick Sinus: Patient is currently in Afib. Overnight had 3 second pauses. Hemodynamically stable, asymptomatic. Toprol 50 mg daily. Continue Diltazem 120 mg daily. hold Xarelto starting 09/02 for pacemaker placement on 09/03; no need to bridge. Cardiology recommendations appreciated. Continue to follow in telemetry. Continue to follow. Pacer pads - Chronic leg edema now with cellulitis/stasis dermatitis: Continue Doxycycline day 9/. TALHA boot. Wound care nurse. - Altered mental status: resolved - Acute exacerbation of diastolic CHF: resolved, currently euvolemic. Follow daily I/O and weights/ - COPD: No evidence of exacerbation at this time. DuoNeb, Budesonide. Nasal cannula O2 overnight as needed. - Dementia with Sundowning and Agitation: Continue Donepezil. Haldol and Lorazepam PRN for agitation - DVT Prophylaxis: SCD and Xarelto/ - Code Status: Level I Full Code - Disposition: Telemetry. Pacemaker planned for tomorrow AM Resident Physician Supervision Note: I interviewed and examined the patient. Discussed with Dr. Christianson and agree with findings and plan as documented in the note. Any exceptions or clarifications are listed here: None Documented By: Jefferson Castro no complaints. repeats asking what's going on and why she's here and if dtr knows. answered all questions several times vitals noted nad breathing unlabored no pallor or icterus sick sinus -asymptomatic but very concerning rhythms and long pauses, for pacer tomorrow -continue to follow acute on chronic diastolic CHF in the setting of afib and inappropriate bradyarrhythmias - now euvolemic no problems
[2017-09-02] MEDS: DONEPEZIL HCL 5 MG TAB PO SCH (20:51)
[2017-09-03] VITALS (12 sets, daily range): BP systolic 110–138; BP diastolic 56–78; PULSE 60–88; TEMP 36.5–37; O2SAT 92–98
[2017-09-03] MEDS: LORAZEPAM 0.5 MG TAB PO PRN ×2 (04:27→16:09)
[2017-09-03] MEDS ORDERED: CEFAZOLIN SOD 1000MG/7.5 ML IV PUSH IV SCH (06:00)
[2017-09-03] MEDS ORDERED: CEFAZOLIN 2000MG IV PUSH 15 ML IV SCH (06:00)
[2017-09-03 06:27] LABS: HEMATOCRIT 35.8 % (37-47); HEMOGLOBIN 11.9 g/dL (12.0-16.0); MEAN CELL VOLUME 94.2 fL (80-100); MEAN CORPUSCULAR HEMOGLOBIN 31.3 pg (25-34); MEAN CORPUSCULAR HGB CONC 33.2 g/dl (32-36); PLATELET COUNT 206 K/uL (130-400); RED CELL DISTRIBUTION WIDTH CV 14.1 % (11.5-14.5); RED CELL DISTRIBUTION WIDTH SD 48.6 fL (36.4-46.3); WHITE BLOOD COUNT 7.91 K/uL (4.8-10.8)
[2017-09-03] MEDS: BUDESONIDE 0.5 MG/2 ML VIAL (PULMICORT) INH SCH ×2 (06:47→19:21)
[2017-09-03 06:55] LABS: CALCIUM 8.7 mg/dl (8.5-10.1); CREATININE 0.71 mg/dl (0.60-1.20); POTASSIUM 3.7 mmol/L (3.5-5.1)
[2017-09-03] MEDS: POTASSIUM CHLORIDE 20 MEQ TABCR PO SCH ×2 (08:39→19:44)
[2017-09-03] MEDS: SERTRALINE HCL 50 MG TAB PO SCH (08:39)
[2017-09-03] MEDS: DILTIAZEM SR 60 MG CAP PO SCH (08:39)
[2017-09-03] MEDS: METOPROLOL SUCC 50MG EXT REL TAB PO SCH ×2 (08:39→19:45)
[2017-09-03] MEDS: DOXYCYCLINE HYCLATE 100 MG CAP PO SCH ×2 (08:40→19:44)
[2017-09-03] MEDS: HALOPERIDOL 1 MG TAB PO PRN ×2 (08:40→20:44)
[2017-09-03] MEDS: FUROSEMIDE INJ 40 MG in SYRINGE 0 ML IV SCH ×2 (09:28→17:09)
--- NOTE | 2017-09-03 09:49 | Family Medicine Progress Note ---
Progress Note Date of Service September 03, 2017. Subjective Pt evaluation today including: conversation w/ patient, physical exam, chart review, lab review, review of studies, review of inpatient medication list Pain: denies PO Intake: adequate Voiding: no voiding problems Per nursing, patient became agitated and screamed for approximatel an hr. She was subsequently given Haldol. Upon entering room patient was somnolent but awoke to voice. She denied any complaints at the time. She denied palpitation , chest pain, dizziness, sob, Constitutional: No fever, No chills Respiratory: No cough, No shortness of breath Cardiovascular: No chest pain, No edema, No palpitations Abdomen: No pain, No nausea, No vomiting, No diarrhea Female : No dysuria, No urinary frequency Skin: No rash, No itch Medications Current Inpatient Medications Medications (Trade) Dose Ordered Sig/Bryon Route Start Time Stop Time Status Last Admin Dose Admin Acetaminophen (Tylenol Tab) 650 mg Q4H PRN PO 08/29/17 02:30 09/28/17 02:29 Al Hydrox/Mg Hydrox/Simethicone (Maalox Max Susp) 15 ml Q4H PRN PO 08/29/17 02:30 09/28/17 02:29 Magnesium Hydroxide (Milk Of Magnesia Susp) 30 ml Q12H PRN PO 08/29/17 02:30 09/28/17 02:29 Ondansetron HCl (Zofran Inj) 4 mg Q6H PRN IV 08/29/17 02:30 09/28/17 02:29 Nitroglycerin (Nitrostat Tab) 0.4 mg UD PRN SL 08/29/17 02:30 09/28/17 02:29 Polyethylene (Miralax Powder Packet) 17 gm DAILY PRN PO 08/29/17 02:30 09/28/17 02:29 Budesonide (Pulmicort Respules 0.5MG/ 2ML Neb Soln) 1 mg BIDR INH 08/29/17 08:00 09/28/17 07:59 09/03/17 19:21 1 MG Donepezil HCl (Aricept Tab) 5 mg HS PO 08/29/17 21:00 09/28/17 20:59 09/03/17 19:45 5 MG Nystatin (Mycostatin Powder) 1 appln TID PRN EXT 08/29/17 02:30 09/28/17 02:29 Rivaroxaban (Xarelto Tab) 20 mg QAM PO 08/29/17 09:00 09/28/17 08:59 Future Hold 09/01/17 07:28 20 MG Sertraline HCl (Zoloft Tab) 25 mg QAM PO 08/29/17 09:00 09/28/17 08:59 09/03/17 08:39 25 MG Tramadol HCl (Ultram Tab) 50 mg Q6H PRN PO 08/29/17 02:30 09/28/17 02:29 Miscellaneous Information (Order Awaiting Action) 1 ea QS N/A 08/29/17 08:00 09/28/17 07:59 09/01/17 20:29 1 EA Furosemide 40 mg/ Syringe 4 ml @ 4 mls/min BID17 IV 08/29/17 09:00 09/28/17 08:59 09/03/17 17:09 4 MLS/MIN Potassium Chloride (Klor-Con Tab) 20 meq BID PO 08/29/17 09:00 09/28/17 08:59 09/03/17 19:44 20 MEQ Doxycycline Hyclate (Vibramycin Cap) 100 mg BID PO 08/29/17 09:00 09/08/17 08:59 09/03/17 19:44 100 MG Miscellaneous (Iv Fluids Completed) 1 ea PRN PRN N/A 08/29/17 05:45 08/29/18 05:44 Lorazepam (Ativan Tab) 0.5 mg Q6H PRN PO 08/29/17 17:00 09/28/17 16:59 09/03/17 16:09 0.5 MG Haloperidol (Haldol Tab) 1 mg Q12H PRN PO 08/30/17 08:30 09/29/17 08:29 09/03/17 20:44 1 MG Diltiazem HCl (Cardizem Sr) 60 mg QAM PO 09/02/17 09:00 09/28/17 08:59 09/03/17 08:39 60 MG Diphenhydramine HCl (Benadryl Cap) 25 mg HS PO 09/02/17 23:30 10/02/17 23:29 09/03/17 19:42 25 MG Cefazolin Sodium 2000 mg/Syringe 15 ml @ 3.75 mls/ min Q8H IV 09/03/17 20:00 09/04/17 04:03 09/03/17 19:42 3.75 MLS/MIN Metoprolol Succinate (Toprol Xl Tab) 50 mg BID PO 09/03/17 21:00 09/30/17 08:59 09/03/17 19:45 50 MG Objective Vital Signs Date Time Temp Pulse Resp B/P (MAP) Pulse Ox O2 Delivery O2 Flow Rate FiO2 09/04/17 00:00 Nasal Cannula 2.0 09/03/17 23:23 36.9 65 20 138/72 (94) 98 Nasal Cannula 2.0 09/03/17 20:00 Nasal Cannula 2.0 09/03/17 19:21 88 24 96 Room Air 09/03/17 19:16 36.6 63 22 126/73 (90) 92 Room Air 09/03/17 15:54 36.5 60 22 112/75 (87) 96 Room Air 09/03/17 15:00 60 119/74 (89) 95 Room Air 09/03/17 14:30 60 121/56 (77) 94 Room Air 09/03/17 14:00 60 120/73 (89) 95 Room Air 09/03/17 13:30 36.7 60 20 132/78 (96) 92 Room Air 09/03/17 13:20 57 16 125/65 (85) 98 Room Air 09/03/17 13:05 58 16 128/66 (86) 98 Room Air 09/03/17 11:01 37.0 74 16 131/69 (89) 95 09/03/17 07:13 37.0 66 18 110/63 (79) 98 2.0 09/03/17 06:48 69 20 98 Room Air 09/03/17 04:32 36.5 65 24 127/68 (87) 95 Nasal Cannula 2.0 09/03/17 04:00 Nasal Cannula 2.0 Physical Exam Notes: GENERAL: somnolent , no distress, EYE EXAM: normal conjunctiva, PERRL and EOM's grossly intact OROPHARYNX: no exudate, no erythema, lips, buccal mucosa, and tongue normal and mucous membranes are moist NECK: supple, no nuchal rigidity, no adenopathy, non-tender LUNGS: Clear to auscultation. Normal chest wall mechanics HEART: no murmurs, S1 normal and S2 normal ABDOMEN: abdomen soft, non-tender, normo-active bowel sounds, no masses, no rebound or guarding. BACK: Back is symmetrical on inspection and there is no deformity SKIN: no rashes and no bruising UPPER EXTREMITIES: upper extremities are grossly normal. LOWER EXTREMITIES: No pitting edema. NEURO EXAM: AOx1 , cranial nerves II-XII grossly intact, normal speech Laboratory Results Current Inpatient Medications Medications (Trade) Dose Ordered Sig/Bryon Route Start Time Stop Time Status Last Admin Dose Admin Acetaminophen (Tylenol Tab) 650 mg Q4H PRN PO 08/29/17 02:30 09/28/17 02:29 Al Hydrox/Mg Hydrox/Simethicone (Maalox Max Susp) 15 ml Q4H PRN PO 08/29/17 02:30 09/28/17 02:29 Magnesium Hydroxide (Milk Of Magnesia Susp) 30 ml Q12H PRN PO 08/29/17 02:30 09/28/17 02:29 Ondansetron HCl (Zofran Inj) 4 mg Q6H PRN IV 08/29/17 02:30 09/28/17 02:29 Nitroglycerin (Nitrostat Tab) 0.4 mg UD PRN SL 08/29/17 02:30 09/28/17 02:29 Polyethylene (Miralax Powder Packet) 17 gm DAILY PRN PO 08/29/17 02:30 09/28/17 02:29 Budesonide (Pulmicort Respules 0.5MG/ 2ML Neb Soln) 1 mg BIDR INH 08/29/17 08:00 09/28/17 07:59 09/03/17 19:21 1 MG Donepezil HCl (Aricept Tab) 5 mg HS PO 08/29/17 21:00 09/28/17 20:59 09/03/17 19:45 5 MG Nystatin (Mycostatin Powder) 1 appln TID PRN EXT 08/29/17 02:30 09/28/17 02:29 Rivaroxaban (Xarelto Tab) 20 mg QAM PO 08/29/17 09:00 09/28/17 08:59 Future Hold 09/01/17 07:28 20 MG Sertraline HCl (Zoloft Tab) 25 mg QAM PO 08/29/17 09:00 09/28/17 08:59 09/03/17 08:39 25 MG Tramadol HCl (Ultram Tab) 50 mg Q6H PRN PO 08/29/17 02:30 09/28/17 02:29 Miscellaneous Information (Order Awaiting Action) 1 ea QS N/A 08/29/17 08:00 09/28/17 07:59 09/01/17 20:29 1 EA Furosemide 40 mg/ Syringe 4 ml @ 4 mls/min BID17 IV 08/29/17 09:00 09/28/17 08:59 09/03/17 17:09 4 MLS/MIN Potassium Chloride (Klor-Con Tab) 20 meq BID PO 08/29/17 09:00 09/28/17 08:59 09/03/17 19:44 20 MEQ Doxycycline Hyclate (Vibramycin Cap) 100 mg BID PO 08/29/17 09:00 09/08/17 08:59 09/03/17 19:44 100 MG Miscellaneous (Iv Fluids Completed) 1 ea PRN PRN N/A 08/29/17 05:45 08/29/18 05:44 Lorazepam (Ativan Tab) 0.5 mg Q6H PRN PO 08/29/17 17:00 09/28/17 16:59 09/03/17 16:09 0.5 MG Haloperidol (Haldol Tab) 1 mg Q12H PRN PO 08/30/17 08:30 09/29/17 08:29 09/03/17 20:44 1 MG Diltiazem HCl (Cardizem Sr) 60 mg QAM PO 09/02/17 09:00 09/28/17 08:59 09/03/17 08:39 60 MG Diphenhydramine HCl (Benadryl Cap) 25 mg HS PO 09/02/17 23:30 10/02/17 23:29 09/03/17 19:42 25 MG Cefazolin Sodium 2000 mg/Syringe 15 ml @ 3.75 mls/ min Q8H IV 09/03/17 20:00 09/04/17 04:03 09/03/17 19:42 3.75 MLS/MIN Metoprolol Succinate (Toprol Xl Tab) 50 mg BID PO 09/03/17 21:00 09/30/17 08:59 09/03/17 19:45 50 MG Assessment and Plan 87 yo F with a PMHx of chronic diastolic CHF, COPD, HTN, HLD, dementia, and morbid obesity that presents with AMS, Afib, and Lower Extremity Cellulitis Paroxysmal Atrial Fibrillation/ Sick Sinus: - asx Hemodynamically stable, asymptomatic. - s/p pacemaker placement 09/03 - Toprol 50 mg daily. Continue Diltazem 120 mg daily. - Consider restarting Xarelto tomorrow, F/u Cardiology recommendation - Cardiology recommendations appreciated. Continue to follow in telemetry. Continue to follow. Pacer pads Chronic leg edema now with cellulitis/stasis dermatitis: - Continue Doxycycline day 01/23. Altered mental status: - acutely worse s/p Haldol administration - reassess in the am Acute exacerbation of diastolic CHF: - resolved, currently euvolemic - Follow daily I/O and weights COPD: - DuoNeb, Budesonide. Nasal cannula O2 overnight as needed. - stable Dementia with Sundowning and Agitation: -Continue Donepezil. Haldol and Lorazepam PRN for agitation DVT Prophylaxis: -CD and Xarelto/ - Code Status: Level I Full Code - Disposition: Telemetry. Pacemaker planned for tomorrow AM Continued [facility] stay due to: multiple IV medications needed Discharge planning: home, halfway facility Assessment/Plan Resident Physician Supervision Note: I was present with Dr. Robison during the history and exam. I discussed the case with the resident and agree with the findings and plan as documented in the note. Any exceptions or clarifications are listed here. Pt seen and examined s/p pacemaker placement - somewhat somnolent but still answering questions appropriately and oriented to self and place, if not time. Some discomfort at procedure site but no real complaints at present. Agree w/ optimal management of atrial fibrillation with pacemaker support. Completing doxycycline course for cellulitis today. Fluid balance is neutral today and down several liters from admission with improvement in presenting symptoms. Resident Tracking Resident Involvement: Resident Care Provided Care Provided: Adult Hospital Medicine
[2017-09-03] MEDS ORDERED: FENTANYL CITRATE INJ 50 MCG/1 ML 2 ML VIAL ONE (11:36)
[2017-09-03] MEDS ORDERED: MIDAZOLAM HCL 5 MG/ML 1 ML VIAL ONE (11:36)
[2017-09-03] MEDS ORDERED: BACITRACIN 50000 UNIT VIAL ONE (11:37)
[2017-09-03] MEDS ORDERED: LIDOCAINE HCL 1% 20 ML VIAL ONE (11:37)
[2017-09-03] MEDS ORDERED: BUPIVACAINE 0.5 % 5 MG/1 ML MPF 30ML VIAL ONE (11:37)
[2017-09-03] MEDS ORDERED: CEFAZOLIN SOD 1 GM VIAL ONE (12:10)
--- NOTE | 2017-09-03 13:10 | [facility] Operative Report ---
Operative Report Date of Service September 03, 2017. Operative Report Procedure performed: Implantation of dual-chamber permanent pacemaker Staff piano and organ refinisher: Aaron Cannon MD Indication: Procedure in detail: The patient was informed of the risks benefits and alternatives to the intended procedure and she wished to proceed. She was taken to the electrophysiology suite in a fasting state. A preoperative antibiotic had been administered. The patient was monitored electrocardiographically throughout today's procedure and conscious sedation was administered per protocol. The left upper pectoral area is prepped and draped in usual sterile fashion. This area was anesthetized using subcutaneous menstruation of a xylocaine solution. An incision was made at this site and carried down to the prepectoralis fascia using sharp dissection. Electrocautery was also employed for dissection as well as for hemostasis. A device pocket was fashioned tissues above the pectoralis muscle. Subsequent to this maneuver the left axillary vein was accessed using modified Seldinger technique. Sheaths were placed over guidewires at this site and used to facilitate passage of the pacing leads to the respective chambers under fluoroscopic guidance. This included right atrial and right ventricular leads. Adequate sensing and threshold parameters were obtained prior to Active fixation of the leads to the endocardial surface. The proximal portion leads were then sutured the prepectoral fascia using nonabsorbable suture. The device pocket was irrigated with antibiotic solution. The leads were then attached to the device. The device and leads were then placed in the pocket and pocket was closed in 3 layers of absorbable suture. Steri-Strips and sterile dressing were applied. The device was tested noninvasively prior to conclusion the procedure. The patient tolerated procedure well there no immediate complications. Equipment used: New pulse generator: [employer]. Model number:[id number] serial number are [id number] Right atrial lead: [employer]. Model number: [id number] serial number [id number] Right ventricular lead: [employer]. Model number: [id number] serial number [id number] Measured data: Right atrial lead: P-waves measured 2.5 mV pacing threshold was 0.7 volt at 0.4 milliseconds with a pacing impedance of 690 Ohms Right ventricular lead: R-waves measured 7.4 mV. Pacing threshold 0.3 volts at 0.4 milliseconds with a pacing impedance of 825 Ohms Impression: Successful implantation of dual-chamber permanent pacemaker I attest to the content of the Intraoperative Record and any orders documented therein. Any exceptions are noted below.
[2017-09-03] MEDS: CEFAZOLIN IV 2,000 MG in SYRINGE 0 ML IV SCH (19:42)
[2017-09-03] MEDS: DONEPEZIL HCL 5 MG TAB PO SCH (19:45)
[2017-09-04] VITALS (11 sets, daily range): BP systolic 105–134; BP diastolic 61–85; PULSE 85–112; TEMP 36.4–37.1; O2SAT 93–97
[2017-09-04] MEDS: CEFAZOLIN IV 2,000 MG in SYRINGE 0 ML IV SCH (03:13)
[2017-09-04] MEDS: LORAZEPAM 0.5 MG TAB PO PRN ×2 (03:13→10:54)
[2017-09-04] MEDS ORDERED: HALOPERIDOL 1 MG TAB PO PRN (03:30)
[2017-09-04] MEDS: BUDESONIDE 0.5 MG/2 ML VIAL (PULMICORT) INH SCH ×2 (07:07→19:11)
--- NOTE | 2017-09-04 07:50 | DIAGNOSTIC IMAGING REPORT ---
CHEST 2 VIEWS ROUTINE HISTORY: EXACT TIME ORDERED Evaluate for pneumothorax and lead placement COMPARISON: Chest 08/28/2017. FINDINGS: Interval placement left-sided dual-chamber pacemaker. The leads appear intact and are in good position. No pneumothorax. The heart is mildly enlarged. There is mild central pulmonary vascular congestion without overt edema. This has improved. Stable blunting of the left lateral costophrenic sulcus. Old posttraumatic deformities within the proximal left humerus. IMPRESSION: 1. Interval placement left-sided dual-chamber pacemaker. No pneumothorax. 2. Cardiomegaly and the pulmonary vascular congestion have improved. Electronically signed by: Jordon Espinal M.D. 09/04/2017 7:48 AM Dictated Date/Time: 09/04/2017 7:46 AM
[2017-09-04] MEDS: SERTRALINE HCL 50 MG TAB PO SCH (08:07)
[2017-09-04] MEDS: FUROSEMIDE INJ 40 MG in SYRINGE 0 ML IV SCH ×2 (08:07→17:01)
[2017-09-04] MEDS: DOXYCYCLINE HYCLATE 100 MG CAP PO SCH ×2 (08:08→20:22)
[2017-09-04] MEDS: METOPROLOL SUCC 50MG EXT REL TAB PO SCH ×2 (08:08→20:22)
[2017-09-04] MEDS: POTASSIUM CHLORIDE 20 MEQ TABCR PO SCH ×2 (08:08→20:22)
[2017-09-04] MEDS: DILTIAZEM SR 60 MG CAP PO SCH (08:08)
[2017-09-04 08:10] LABS: BASO % 0.6 %; BASO ABS # 0.05 K/uL (0-0.2); EOS % 2.8 %; EOS ABS # 0.24 K/uL (0-0.5); IG# 0.04 K/uL (0.00-0.02); LYMPH % 17.9 %; LYMPH ABS # 1.55 K/uL (1.2-3.4); MEAN CELL VOLUME 93.5 fL (80-100); MEAN CORPUSCULAR HEMOGLOBIN 30.4 pg (25-34); MEAN CORPUSCULAR HGB CONC 32.5 g/dl (32-36); MEAN PLATELET VOLUME 9.6 fL (7.4-10.4); MONO % 9.4 %; MONO ABS # 0.81 K/uL (0.11-0.59); NEUT % 68.8 %; NEUT ABS # 5.95 K/uL (1.4-6.5); PLATELET COUNT 213 K/uL (130-400); RED CELL DISTRIBUTION WIDTH CV 14.2 % (11.5-14.5); RED CELL DISTRIBUTION WIDTH SD 48.3 fL (36.4-46.3); WHITE BLOOD COUNT 8.64 K/uL (4.8-10.8)
[2017-09-04 08:34] LABS: CALCIUM 8.6 mg/dl (8.5-10.1); CREATININE 0.9 mg/dl (0.60-1.20); POTASSIUM 3.8 mmol/L (3.5-5.1)
--- NOTE | 2017-09-04 10:37 | Cardiology Follow-Up ---
Subjective Date of Service: September 04, 2017. Pt evaluation today including: conversation w/ patient, physical exam, chart review, lab review, review of studies, review of inpatient medication list, conversation w/ attending History of Present Illness This morning the patient was sleepy. She thought it was nighttime was daytime. She reports some mild discomfort at the implant site. Social History Smoking Status: Never Smoker History of Alcohol Use: No Review of Systems Respiratory: No cough, No shortness of breath Cardiac: No chest pain, No edema, No palpitations The patient denies any symptoms of pain, chest pain, dizziness, palpitations or dyspnea. However, she has significant cognitive issues and this may be unreliable. Objective Vital Signs Past 12 Hours Date Time Temp Pulse Resp B/P (MAP) Pulse Ox O2 Delivery O2 Flow Rate FiO2 09/04/17 07:45 37.0 102 16 126/78 (94) 94 09/04/17 07:08 102 20 95 Room Air 09/04/17 04:00 Nasal Cannula 2.0 09/04/17 03:15 36.4 107 20 127/85 (99) 97 Nasal Cannula 2.0 09/04/17 00:00 Nasal Cannula 2.0 09/03/17 23:23 36.9 65 20 138/72 (94) 98 Nasal Cannula 2.0 Last Recorded Weight-Kilograms: 116.300 Physical Exam She was easily arousable. She did answer questions but not appropriately. Chest: Well-healed pacemaker implant site. No significant hematoma or erythema. Data Laboratory Results: Last 24 Hours Test 09/04/17 07:56 White Blood Count 8.64 K/uL Red Blood Count 4.28 M/uL Hemoglobin 13.0 g/dL Hematocrit 40.0 % Mean Corpuscular Volume 93.5 fL Mean Corpuscular Hemoglobin 30.4 pg Mean Corpuscular Hemoglobin Concent 32.5 g/dl Platelet Count 213 K/uL Mean Platelet Volume 9.6 fL Neutrophils (%) (Auto) 68.8 % Lymphocytes (%) (Auto) 17.9 % Monocytes (%) (Auto) 9.4 % Eosinophils (%) (Auto) 2.8 % Basophils (%) (Auto) 0.6 % Neutrophils # (Auto) 5.95 K/uL Lymphocytes # (Auto) 1.55 K/uL Monocytes # (Auto) 0.81 K/uL Eosinophils # (Auto) 0.24 K/uL Basophils # (Auto) 0.05 K/uL RDW Standard Deviation 48.3 fL RDW Coefficient of Variation 14.2 % Immature Granulocyte % (Auto) 0.5 % Immature Granulocyte # (Auto) 0.04 K/uL Sodium Level 136 mmol/L Potassium Level 3.8 mmol/L Chloride Level 102 mmol/L Carbon Dioxide Level 28 mmol/L Anion Gap 7.0 mmol/L Blood Urea Nitrogen 21 mg/dl Creatinine 0.90 mg/dl Est Creatinine Clear Calc Drug Dose 55.3 ml/min Estimated GFR () 67.6 Estimated GFR (Non- 58.3 BUN/Creatinine Ratio 23.6 Random Glucose 166 mg/dl Calcium Level 8.6 mg/dl Imaging: Chest x-ray demonstrated stable lead position without evidence of pneumothorax Telemetry reviewed: Paced atrial rhythm with transition to atrial fibrillation around 1 a.m.. I performed a complete device interrogation which revealed normal sensing on both leads. Threshold could not be performed in the atrial lead due to atrial fibrillation. Ventricular threshold was normal. Normal device function. Assessment and Plan 1. Congestive heart failure: Presumed diastolic. Well compensated currently. Return to her usual outpatient diuretic regimen. 2. Atrial fibrillation: Back in atrial fibrillation this morning. I increased her metoprolol to her outpatient dose yesterday. Will not likely see the full effect of this change for few days. I think she still stable for discharge. Her Xarelto should be held for 2 day and tomorrow but could be resumed on . 3. Conversion pauses: Status post dual-chamber pacemaker implantation yesterday. Normal device function without evidence of complication. She will follow-up in our clinic for wound check in 1 week. She should keep the wound dry and Steri-Strips intact for 1 week until follow-up. She should refrain from lifting left arm above her shoulder or behind her neck for 6 weeks.
[2017-09-04] MEDS: HALOPERIDOL 1 MG TAB PO PRN (13:04)
--- NOTE | 2017-09-04 13:17 | Family Medicine Progress Note ---
Progress Note Date of Service September 04, 2017. Subjective Pt evaluation today including: conversation w/ patient, physical exam, chart review, lab review, review of studies, conversation w/ creative consultant, review of inpatient medication list Pain: denies PO Intake: adequate Voiding: newell catheter in place Overnight, patient converted back into Afib, HR in the low 100;s Additionally, due to increased agitation, patient received Haldol. Constitutional: No fever, No chills Respiratory: No shortness of breath Cardiovascular: No chest pain, No edema, No palpitations Abdomen: No nausea, No vomiting, No diarrhea Musculoskeletal: No muscle pain Medications Current Inpatient Medications Medications (Trade) Dose Ordered Sig/Bryon Route Start Time Stop Time Status Last Admin Dose Admin Acetaminophen (Tylenol Tab) 650 mg Q4H PRN PO 08/29/17 02:30 09/28/17 02:29 Al Hydrox/Mg Hydrox/Simethicone (Maalox Max Susp) 15 ml Q4H PRN PO 08/29/17 02:30 09/28/17 02:29 Magnesium Hydroxide (Milk Of Magnesia Susp) 30 ml Q12H PRN PO 08/29/17 02:30 09/28/17 02:29 Ondansetron HCl (Zofran Inj) 4 mg Q6H PRN IV 08/29/17 02:30 09/28/17 02:29 Nitroglycerin (Nitrostat Tab) 0.4 mg UD PRN SL 08/29/17 02:30 09/28/17 02:29 Polyethylene (Miralax Powder Packet) 17 gm DAILY PRN PO 08/29/17 02:30 09/28/17 02:29 Budesonide (Pulmicort Respules 0.5MG/ 2ML Neb Soln) 1 mg BIDR INH 08/29/17 08:00 09/28/17 07:59 09/04/17 19:11 1 MG Donepezil HCl (Aricept Tab) 5 mg HS PO 08/29/17 21:00 09/28/17 20:59 09/04/17 20:21 5 MG Nystatin (Mycostatin Powder) 1 appln TID PRN EXT 08/29/17 02:30 09/28/17 02:29 Rivaroxaban (Xarelto Tab) 20 mg QAM PO 08/29/17 09:00 09/28/17 08:59 Future Hold 09/01/17 07:28 20 MG Sertraline HCl (Zoloft Tab) 25 mg QAM PO 08/29/17 09:00 09/28/17 08:59 09/04/17 08:07 25 MG Tramadol HCl (Ultram Tab) 50 mg Q6H PRN PO 08/29/17 02:30 09/28/17 02:29 Miscellaneous Information (Order Awaiting Action) 1 ea QS N/A 08/29/17 08:00 09/28/17 07:59 09/01/17 20:29 1 EA Furosemide 40 mg/ Syringe 4 ml @ 4 mls/min BID17 IV 08/29/17 09:00 09/28/17 08:59 09/04/17 17:01 4 MLS/MIN Potassium Chloride (Klor-Con Tab) 20 meq BID PO 08/29/17 09:00 09/28/17 08:59 09/04/17 20:22 20 MEQ Doxycycline Hyclate (Vibramycin Cap) 100 mg BID PO 08/29/17 09:00 09/08/17 08:59 09/04/17 20:22 100 MG Miscellaneous (Iv Fluids Completed) 1 ea PRN PRN N/A 08/29/17 05:45 08/29/18 05:44 Haloperidol (Haldol Tab) 1 mg Q12H PRN PO 08/30/17 08:30 09/29/17 08:29 09/04/17 13:04 1 MG Diltiazem HCl (Cardizem Sr) 60 mg QAM PO 09/02/17 09:00 09/28/17 08:59 09/04/17 08:08 60 MG Diphenhydramine HCl (Benadryl Cap) 25 mg HS PO 09/02/17 23:30 10/02/17 23:29 09/04/17 20:25 25 MG Metoprolol Succinate (Toprol Xl Tab) 50 mg BID PO 09/03/17 21:00 09/30/17 08:59 09/04/17 20:22 50 MG Haloperidol (Haldol Tab) 1 mg ONE PRN PO 09/04/17 03:30 10/04/17 03:29 09/04/17 03:57 1 MG Objective Vital Signs Date Time Temp Pulse Resp B/P (MAP) Pulse Ox O2 Delivery O2 Flow Rate FiO2 09/04/17 20:00 93 Room Air 09/04/17 19:42 36.6 101 22 123/61 (81) 93 Room Air 09/04/17 19:11 104 20 95 Room Air 09/04/17 16:00 96 Room Air 09/04/17 15:54 36.8 85 20 105/70 (82) 96 09/04/17 15:45 112 93 09/04/17 12:06 36.8 108 18 132/73 (92) 96 09/04/17 12:00 Room Air 09/04/17 08:00 Room Air 09/04/17 07:45 37.0 102 16 126/78 (94) 94 09/04/17 07:08 102 20 95 Room Air 09/04/17 04:00 Nasal Cannula 2.0 09/04/17 03:15 36.4 107 20 127/85 (99) 97 Nasal Cannula 2.0 09/04/17 00:00 Nasal Cannula 2.0 09/03/17 23:23 36.9 65 20 138/72 (94) 98 Nasal Cannula 2.0 Physical Exam Notes: GENERAL: alert, no distress, obese EYE EXAM: normal conjunctiva, PERRL and EOM's grossly intact OROPHARYNX: no exudate, no erythema, lips, buccal mucosa, and tongue normal and mucous membranes are moist NECK: supple, no nuchal rigidity, no adenopathy, non-tender LUNGS: Clear to auscultation. Normal chest wall mechanics HEART: irregularly irregular rhythm ABDOMEN: abdomen soft, non-tender, normo-active bowel sounds, no masses, no rebound or guarding. BACK: Back is symmetrical on inspection and there is no deformity, no midline tenderness, no CVA tenderness. UPPER EXTREMITIES: upper extremities are grossly normal. LOWER EXTREMITIES: No pitting edema. NEURO EXAM: AOx2, cranial nerves II-XII grossly intact, normal speech, Laboratory Results Results Past 24 Hours Test 09/04/17 07:56 Range/Units White Blood Count 8.64 4.8-10.8 K/uL Red Blood Count 4.28 4.2-5.4 M/uL Hemoglobin 13.0 12.0-16.0 g/dL Hematocrit 40.0 37-47 % Mean Corpuscular Volume 93.5 80-100 fL Mean Corpuscular Hemoglobin 30.4 25-34 pg Mean Corpuscular Hemoglobin Concent 32.5 32-36 g/dl Platelet Count 213 130-400 K/uL Mean Platelet Volume 9.6 7.4-10.4 fL Neutrophils (%) (Auto) 68.8 % Lymphocytes (%) (Auto) 17.9 % Monocytes (%) (Auto) 9.4 % Eosinophils (%) (Auto) 2.8 % Basophils (%) (Auto) 0.6 % Neutrophils # (Auto) 5.95 1.4-6.5 K/uL Lymphocytes # (Auto) 1.55 1.2-3.4 K/uL Monocytes # (Auto) 0.81 0.11-0.59 K/uL Eosinophils # (Auto) 0.24 0-0.5 K/uL Basophils # (Auto) 0.05 0-0.2 K/uL RDW Standard Deviation 48.3 36.4-46.3 fL RDW Coefficient of Variation 14.2 11.5-14.5 % Immature Granulocyte % (Auto) 0.5 % Immature Granulocyte # (Auto) 0.04 0.00-0.02 K/uL Sodium Level 136 136-145 mmol/L Potassium Level 3.8 3.5-5.1 mmol/L Chloride Level 102 98-107 mmol/L Carbon Dioxide Level 28 21-32 mmol/L Anion Gap 7.0 3-11 mmol/L Blood Urea Nitrogen 21 7-18 mg/dl Creatinine 0.90 0.60-1.20 mg/dl Est Creatinine Clear Calc Drug Dose 55.3 ml/min Estimated GFR () 67.6 Estimated GFR (Non- 58.3 BUN/Creatinine Ratio 23.6 10-20 Random Glucose 166 70-99 mg/dl Calcium Level 8.6 8.5-10.1 mg/dl Assessment and Plan 87 yo F with a PMHx of chronic diastolic CHF, COPD, HTN, HLD, dementia, and morbid obesity that presents with AMS, Afib, and Lower Extremity Cellulitis Paroxysmal Atrial Fibrillation/ Sick Sinus: - converted back to Afib , currently asx Hemodynamically stable - s/p pacemaker placement 09/03 - Metoprol increased to 50 mg BID from 50 mg daily. - Continue Diltazem 120 mg daily. - Per Cardiology recommendation , Xarelto to be restarted 09/06 Chronic leg edema now with cellulitis/stasis dermatitis: -resolved - s/p Doxycycline (10 day course) Altered mental status: - acutely worse s/p Haldol administration - D/C Ativan orders - 1:1 if needed Acute exacerbation of diastolic CHF: - resolved, currently euvolemic - Follow daily I/O and weights COPD: - DuoNeb, Budesonide. Nasal cannula O2 overnight as needed. - stable Dementia with Sundowning and Agitation: -Continue Donepezil. Haldol and Lorazepam PRN for agitation DVT Prophylaxis: -SCD -Xarelto remains held Code Status: Level I Full Code Disposition: PT recommends inpatient rehab Continued [facility] stay due to: home environment unsafe for pt Discharge planning: rehab hospital Assessment/Plan Resident Physician Supervision Note: I was present with Dr. Robison during the history and exam. I discussed the case with the resident and agree with the findings and plan as documented in the note. Any exceptions or clarifications are listed here. Pt seen and examined at bedside. Oriented to self, place and month (but not time ). Denies any pain at present, and tolerating AF in the low 100's without complaint. Episodic disorientation likely 2/2 owning erin @ night - counseled nursing to reorient frequently and avoid sedating medications where possible. Per physical therapy, would benefit from rehab services, case mgmt and Debbi aware. Resident Tracking Resident Involvement: Resident Care Provided Care Provided: Adult Hospital Medicine
[2017-09-04] MEDS: DONEPEZIL HCL 5 MG TAB PO SCH (20:21)
[2017-09-05 03:52] VITALS: BP 140/82; PULSE 69; TEMP 36.7; O2SAT 92
[2017-09-05 07:03] VITALS: BP 132/76; PULSE 64; TEMP 36.4; O2SAT 97
[2017-09-05 07:09] VITALS: PULSE 99; O2SAT 95
[2017-09-05] MEDS: BUDESONIDE 0.5 MG/2 ML VIAL (PULMICORT) INH SCH (07:09)
[2017-09-05 07:30] LABS: BASO % 0.6 %; BASO ABS # 0.05 K/uL (0-0.2); EOS % 3.5 %; HEMATOCRIT 38.2 % (37-47); HEMOGLOBIN 12.4 g/dL (12.0-16.0); IG# 0.06 K/uL (0.00-0.02); LYMPH % 18.3 %; LYMPH ABS # 1.56 K/uL (1.2-3.4); MEAN CELL VOLUME 94.6 fL (80-100); MEAN CORPUSCULAR HEMOGLOBIN 30.7 pg (25-34); MEAN CORPUSCULAR HGB CONC 32.5 g/dl (32-36); MONO % 13.5 %; MONO ABS # 1.15 K/uL (0.11-0.59); NEUT % 63.4 %; PLATELET COUNT 192 K/uL (130-400); RED CELL DISTRIBUTION WIDTH CV 14.2 % (11.5-14.5); RED CELL DISTRIBUTION WIDTH SD 49.1 fL (36.4-46.3); WHITE BLOOD COUNT 8.52 K/uL (4.8-10.8)
[2017-09-05 07:57] LABS: CALCIUM 8.6 mg/dl (8.5-10.1); CREATININE 0.86 mg/dl (0.60-1.20)
[2017-09-05] MEDS: FUROSEMIDE INJ 40 MG in SYRINGE 0 ML IV SCH (08:35)
[2017-09-05] MEDS: DILTIAZEM SR 60 MG CAP PO SCH (08:35)
[2017-09-05] MEDS: POTASSIUM CHLORIDE 20 MEQ TABCR PO SCH (08:35)
[2017-09-05] MEDS: METOPROLOL SUCC 50MG EXT REL TAB PO SCH (08:35)
[2017-09-05] MEDS: DOXYCYCLINE HYCLATE 100 MG CAP PO SCH (08:35)
[2017-09-05] MEDS: SERTRALINE HCL 50 MG TAB PO SCH (08:36)
[2017-09-05 11:46] VITALS: BP 125/61; PULSE 62; TEMP 36.4; O2SAT 95
[2017-09-05] MEDS ORDERED: METO-479 PO ×4 (13:18→16:09)
--- NOTE | 2017-09-05 13:28 | Discharge Instructions ---
Discharge Instructions Date of Service September 05, 2017. Admission Reason for Admission: Cellulitis, Chf Exacerbation Discharge Discharge Diagnosis / Problem: Atrial Fibrillation with Pausea / Tacchycardia- Bradycardia Syndrome Discharge Goals Goal(s): Improve function, Diagnostic testing, Therapeutic intervention Activity Recommendations Activity Limitations: resume your previous activity Lifting Limitations: gradually increase as tolerated Exercise/Sports Limitations: gradually increase as tolerated Shower/Bathe: no limitations . Instructions / Follow-Up Instructions / Follow-Up 87 year old female with hx of PAF, CHF, HTN and severe dementia admitted for atrial fibrillation. Also incidentally had left lower extremity cellulitis. When converting to sinus rhythm, experience pauses as long as 9 seconds. Symptoms consistent with sick sinus / Tachy-Alan syndrome. Cardiology consulted for recommendations also treat. Decision made for pacemaker placement so that patient could tolerate further uptitration of Metoprolol: Her hospital course was remarkable for the following: - S/P Pacemaker placement on 09/05 - Metoprolol titrated up to Lopressor 50 mg BID; at discharged, will switch over to Toprol XL 100 mg daily - Xarelto on hold at discharge due to recent procedure; may re-start Xarelto on 09/06 - No changes to other cardiac medications - PCP at [facility] to arrange for cardiology follow-up in 2 weeks. - She was treated with course of Doxycycline PO during admission for left lower extremity cellulitis. No antibiotics required at discharge. She will be discharged back to [facility]. She was stable on day of discharge. It was a pleasure to be involved in her care. Current Hospital Diet Patient's current hospital diet: AHA Diet (Heart Healthy), Low Sodium Diet (2gm Na) Discharge Diet Recommended Diet: AHA Diet (Heart Healthy) Procedures Procedures Performed: Procedure performed: Implantation of dual-chamber permanent pacemaker Staff farm laborer: Aaron Cannon MD Indication: Procedure in detail: The patient was informed of the risks benefits and alternatives to the intended procedure and she wished to proceed. She was taken to the electrophysiology suite in a fasting state. A preoperative antibiotic had been administered. The patient was monitored electrocardiographically throughout today's procedure and conscious sedation was administered per protocol. The left upper pectoral area is prepped and draped in usual sterile fashion. This area was anesthetized using subcutaneous menstruation of a xylocaine solution. An incision was made at this site and carried down to the prepectoralis fascia using sharp dissection. Electrocautery was also employed for dissection as well as for hemostasis. A device pocket was fashioned tissues above the pectoralis muscle. Subsequent to this maneuver the left axillary vein was accessed using modified Seldinger technique. Sheaths were placed over guidewires at this site and used to facilitate passage of the pacing leads to the respective chambers under fluoroscopic guidance. This included right atrial and right ventricular leads. Adequate sensing and threshold parameters were obtained prior to Active fixation of the leads to the endocardial surface. The proximal portion leads were then sutured the prepectoral fascia using nonabsorbable suture. The device pocket was irrigated with antibiotic solution. The leads were then attached to the device. The device and leads were then placed in the pocket and pocket was closed in 3 layers of absorbable suture. Steri-Strips and sterile dressing were applied. The device was tested noninvasively prior to conclusion the procedure. The patient tolerated procedure well there no immediate complications. Equipment used: New pulse generator: [employer] Model number:[id number] serial number are [id number] Right atrial lead: Plan Nurse [employer]. Model number: [id number] serial number [id number] Right ventricular lead: Plan Nurse [employer]. Model number: 5076 serial number [id number] Measured data: Right atrial lead: P-waves measured 2.5 mV pacing threshold was 0.7 volt at 0.4 milliseconds with a pacing impedance of 690 Ohms Right ventricular lead: R-waves measured 7.4 mV. Pacing threshold 0.3 volts at 0.4 milliseconds with a pacing impedance of 825 Ohms Impression: Successful implantation of dual-chamber permanent pacemaker I attest to the content of the Intraoperative Record and any orders documented therein. Any exceptions are noted below. Pending Studies Studies pending at discharge: no Medical Emergencies . Who to Call and When: Medical Emergencies: If at any time you feel your situation is an emergency, please call 911 immediately. . Non-Emergent Contact Non-Emergency issues call your: Primary Care Provider, Information Technology Teacher Call Non-Emergent contact if: you have a fever, your pain is concerning you, you have any medication questions . . "Provider Documentation" section prepared by Mukund Martell. .
[2017-09-05 13:31] VITALS: BP 125/61; PULSE 62; TEMP 36.4; O2SAT 95
--- NOTE | 2017-09-05 16:50 | Discharge Summary ---
Discharge Summary Date of Service September 05, 2017. Discharge Summary Admission Date: August 29, 2017 at 03:08 Discharge Date: September 05, 2017 Immunizations: Have You Had Influenza Vaccine: Yes Influenza Vaccine Date: Feb 21, 2013 History of Tetanus Vaccine?: Unknown History of Pneumococcal: Yes History of Hepatitis B Vaccine: Unknown Hospital Course This includes examination of the patient, discharge planning, medication reconciliation, and communication with other providers. Discharge Instructions Please refer to the electronic Patient Visit Report (Discharge Instructions) for additional information. Assessment/Plan Resident Physician Supervision Note: I was present with Dr. Robison during the history and exam. I discussed the case with the resident and agree with the findings and plan as documented in the note. Any exceptions or clarifications are listed here. Pt seen and examined at bedside. Oriented to self only today, and behavior is at baseline per [facility] rep. Denies any pain, palpitations, lightheadedness or fatigue. For AF - will need progressive adjustment of beta blockade as outpatient with pacer in place to prevent symptomatic bradycardia, but tolerating well at present. Cellulitis has resolved and completed course of doxycycline inpatient. Presently euvolemic and should maintain diuretic therapy with daily weights as outpatient.
== END 2017-09-05 14:08 | disposition home or self-care (01) | DRG 242 ==
LOC: C.EDB 21:36 → ENRESERV 08-29 02:52 → C.2T 08-29 03:08 → EDBEDREQ 08-29 03:15 → C.2T 09-02 11:20
PROVIDERS: ADMIT Student in an Organized Health Care Education/Training Program; ATTEND Family Medicine
PROC: 0JH606Z Insertion of Pacemaker, Dual Chamber into Chest Subcutaneous Tissue and Fascia, Open Approach (ICD-10-PCS; principal; 2017-09-03 12:00)
PROC: 02HK3JZ Insertion of Pacemaker Lead into Right Ventricle, Percutaneous Approach (ICD-10-PCS; principal; 2017-09-03 12:00)
PROC: 02H63JZ Insertion of Pacemaker Lead into Right Atrium, Percutaneous Approach (ICD-10-PCS; principal; 2017-09-03 12:00)
DX: I49.5 Sick sinus syndrome (principal); I50.33 Acute on chronic diastolic (congestive) heart failure; G93.40 Encephalopathy, unspecified; L03.116 Cellulitis of left lower limb; Z68.42 Body mass index [BMI] 45.0-49.9, adult; F02.81 Dementia in other diseases classified elsewhere, unspecified severity, with behavioral disturbance; I48.0 Paroxysmal atrial fibrillation; I11.0 Hypertensive heart disease with heart failure; I45.5 Other specified heart block; I87.2 Venous insufficiency (chronic) (peripheral); G30.9 Alzheimer's disease, unspecified; J45.909 Unspecified asthma, uncomplicated; J44.9 Chronic obstructive pulmonary disease, unspecified; F32.9 Major depressive disorder, single episode, unspecified; E66.01 Morbid (severe) obesity due to excess calories; Z51.81 Encounter for therapeutic drug level monitoring; Z79.899 Other long term (current) drug therapy; Z79.01 Long term (current) use of anticoagulants; Z91.81 History of falling; Z87.440 Personal history of urinary (tract) infections; Z82.49 Family history of ischemic heart disease and other diseases of the circulatory system

== ENCOUNTER 2018-06-20 19:42 | Inpatient (IN) ==
--- NOTE | 2018-06-20 20:43 | Emergency Department Note ---
Entered by Carmelita Cortés acting as a scribe for History of Present Illness General Chief complaint: Abnormal Labs/Diagnostic Testing Stated complaint: POTASSIUM 2.4 Source: patient and family (daughter) Limitations: altered mental status History of Present Illness Provider complaint: abnormal labs Associated symptoms: + denies other symptoms (flu-like symptoms) and + other (+leg swelling); no cough The patient is a 88 year old female who presents to the Emergency Room with complaints of abnormal lab results. Per daughter, the patient's potassium levels are low and states that the patient is on Bumex. The patient states that she has leg swelling but denies any cough or flu-like symptoms. Per daughter, the patient's leg swelling has improved. The patient states that she lives at [facility]. The patient's HPI is limited secondary to dementia. Home Medications Home Medications Medication Instructions Recorded Confirmed Type acetaminophen [Tylenol Extra 500 mg PO Q4 PRN 06/20/18 06/20/18 History Strength] budesonide [Pulmicort] 1 vial INHALATION BID 06/20/18 06/20/18 History calcium carbonate-vitamin D3 1 tab PO DAILY 06/20/18 06/20/18 History [Oyster Shell Calcium-Vit D3] diltiazem HCl [Cardizem CD] 120 mg PO DAILY 06/20/18 06/20/18 History diphenhydramine HCl [Banophen] 25 mg PO Q6 PRN 06/20/18 06/20/18 History donepezil [Aricept] 10 mg PO HS 06/20/18 06/20/18 History fluticasone-vilanterol [Breo 1 puff INHALATION DAILY 06/20/18 06/20/18 History Ellipta] furosemide [Lasix] 80 mg PO BID 06/20/18 06/20/18 History ipratropium-albuterol 3 ml INHALATION Q6 PRN 06/20/18 06/20/18 History loperamide 2 mg PO UD PRN 06/20/18 06/20/18 History lorazepam 0.5 mg PO UD PRN 06/20/18 06/20/18 History memantine [Namenda] 5 mg PO DAILY 06/20/18 06/20/18 History metolazone 5 mg PO 3XWK 06/20/18 06/20/18 History metoprolol succinate [Toprol XL] 100 mg PO DAILY 06/20/18 06/20/18 History nystatin 1 applic TOPICAL TID PRN 06/20/18 06/20/18 History polyethylene glycol 3350 [Miralax] 17 g PO DAILY PRN 06/20/18 06/20/18 History potassium chloride [Klor-Con M20] 20 meq PO DAILY 06/20/18 06/20/18 History rivaroxaban [Xarelto] 20 mg PO DAILY 06/20/18 06/20/18 History sertraline [Zoloft] 50 mg PO DAILY 06/20/18 06/20/18 History Allergies Allergy/AdvReac Type Severity Reaction Status Date / Time No Known Allergies Allergy Verified 06/20/18 21:23 Past Med/Surg History Social History Preferred Language: [place] Feels Safe at Home: Yes Smoking Status: Never smoker Review of Systems The ROS is limited due to the patient's dementia. Physical Exam Vital Signs Vital Signs - 24 hr 06/20/18 19:44 06/20/18 20:17 06/20/18 20:20 Temperature 36.3 C L Temperature Source Oral Sepsis Recent Fever Within 48 Hours No Sepsis New/Unexplained Change in Mental Status No Sepsis Action Taken by Nursing No Action Required Pulse Rate 74 63 65 Pulse Rate from SpO2 Sensor Pulse Rhythm Regular Pulse Strength Normal Respiratory Rate 22 20 18 Respiratory Effort / Characteristics Non-Labored Spontaneous Respiratory Depth Normal Respiratory Pattern Regular Blood Pressure 174/79 H Blood Pressure Mean 110 Blood Pressure Position Sitting Pulse Oximetry 93 Oxygen Delivery Method Room Air 06/20/18 20:30 06/20/18 20:40 06/20/18 20:50 Temperature Temperature Source Sepsis Recent Fever Within 48 Hours Sepsis New/Unexplained Change in Mental Status Sepsis Action Taken by Nursing Pulse Rate 65 64 66 Pulse Rate from SpO2 Sensor Pulse Rhythm Pulse Strength Respiratory Rate 17 22 13 Respiratory Effort / Characteristics Respiratory Depth Respiratory Pattern Blood Pressure Blood Pressure Mean Blood Pressure Position Pulse Oximetry Oxygen Delivery Method 06/20/18 21:00 06/20/18 21:10 06/20/18 21:20 Temperature Temperature Source Sepsis Recent Fever Within 48 Hours Sepsis New/Unexplained Change in Mental Status Sepsis Action Taken by Nursing Pulse Rate 71 100 H 107 H Pulse Rate from SpO2 Sensor Pulse Rhythm Pulse Strength Respiratory Rate 18 19 22 Respiratory Effort / Characteristics Respiratory Depth Respiratory Pattern Blood Pressure Blood Pressure Mean Blood Pressure Position Pulse Oximetry Oxygen Delivery Method 06/20/18 21:24 06/20/18 21:25 06/20/18 21:30 Temperature Temperature Source Sepsis Recent Fever Within 48 Hours Sepsis New/Unexplained Change in Mental Status Sepsis Action Taken by Nursing Pulse Rate 82 89 66 Pulse Rate from SpO2 Sensor 71 73 66 Pulse Rhythm Pulse Strength Respiratory Rate 18 16 16 Respiratory Effort / Characteristics Respiratory Depth Respiratory Pattern Blood Pressure 116/55 L Blood Pressure Mean 75 Blood Pressure Position Pulse Oximetry 95 91 90 Oxygen Delivery Method 06/20/18 21:40 06/20/18 21:50 06/20/18 22:00 Temperature Temperature Source Sepsis Recent Fever Within 48 Hours Sepsis New/Unexplained Change in Mental Status Sepsis Action Taken by Nursing Pulse Rate 66 70 65 Pulse Rate from SpO2 Sensor 66 66 Pulse Rhythm Pulse Strength Respiratory Rate 20 15 18 Respiratory Effort / Characteristics Respiratory Depth Respiratory Pattern Blood Pressure Blood Pressure Mean Blood Pressure Position Pulse Oximetry 91 91 Oxygen Delivery Method 06/20/18 22:06 06/20/18 22:10 06/20/18 22:20 Temperature Temperature Source Sepsis Recent Fever Within 48 Hours Sepsis New/Unexplained Change in Mental Status Sepsis Action Taken by Nursing Pulse Rate 65 65 64 Pulse Rate from SpO2 Sensor 65 65 64 Pulse Rhythm Pulse Strength Respiratory Rate 19 18 17 Respiratory Effort / Characteristics Respiratory Depth Respiratory Pattern Blood Pressure 115/56 L Blood Pressure Mean 75 Blood Pressure Position Pulse Oximetry 96 93 94 Oxygen Delivery Method 06/20/18 22:30 06/20/18 22:40 Temperature Temperature Source Sepsis Recent Fever Within 48 Hours Sepsis New/Unexplained Change in Mental Status Sepsis Action Taken by Nursing Pulse Rate 66 73 Pulse Rate from SpO2 Sensor Pulse Rhythm Pulse Strength Respiratory Rate 20 21 Respiratory Effort / Characteristics Respiratory Depth Respiratory Pattern Blood Pressure Blood Pressure Mean Blood Pressure Position Pulse Oximetry Oxygen Delivery Method GENERAL: Awake, alert to person, well-appearing, in no distress. HENT: Normocephalic, atraumatic. EYES: Normal conjunctiva. Sclera non-icteric. NECK: Supple. No nuchal rigidity. RESPIRATORY: Diminished bases.Normal respiratory effort. CARDIAC: Normal rate. Normal rhythm. Extremities warm and well perfused. GI: Soft, non-distended. No tenderness to palpation. No rebound or guarding. MUSCULOSKELETAL: Atraumatic. Chest examination reveals no tenderness, pacemaker present. There is no CVA tenderness to palpation. LOWER EXTREMITIES: Calves are equal size bilaterally and non-tender. Chronic statasis changes with tracce edema bilaterally NEURO: No sensory or motor deficits noted. No facial droop. Unaware of events. Pleasant. SKIN: Warm and dry. No rash or jaundice noted. Course 1948: Past medical records reviewed. The patient was evaluated in room A10, and a complete history and physical examination were performed. 2118: I checked on the patient and updated her on her results. 2150: I [facility] the [facility] will [facility] the patient for further hospitalization. I updated the patient on her admission. Consultations Consultation #1: Dr. Bach [facility] Hospitalist Time: 21:51 Administered Medications Discontinued Medications Potassium Chloride (K Ricardo / Wtr) 10 meq in 100 mls @ 100 mls/hr IV ONE ONE Stop: 06/20/18 22:46 Last Admin: 06/20/18 22:00 Dose: 100 mls/hr Documented by: [id number] Sodium Chloride (Nss 1000ml) 250 mls @ 999 mls/hr IV .Q16M ONE Stop: 06/20/18 22:02 Last Admin: 06/20/18 22:01 Dose: 999 mls/hr Documented by: [id number] Medical Decision Making Differential Diagnosis Differential diagnosis includes etiologies such as premature contractions, electrolyte abnormality, cardiac dysrhythmia, thyroid dysfunction, pulmonary embolism, infection, gastrointestinal, as well as others were entertained. Medical Records Attestation: I reviewed the patient's medical records. Home Medications Current Medication List: was personally reviewed by me Laboratory Data Attestation: I reviewed the patient's lab results. Result diagrams: 06/20/18 21:06 06/20/18 21:06 Lab Results 06/20/18 06/20/18 Range/Units 21:06 21:06 WBC 11.00 H (4.8-10.8) K/uL RBC 4.58 (4.2-5.4) M/uL Hgb 14.4 (12.0-16.0) g/dL Hct 45.3 (37-47) % MCV 98.9 (80-100) fL MCH 31.4 (25-34) pg MCHC 31.8 L (32-36) g/dL RDW Std Deviation 53.3 H (36.4-46.3) fL RDW Coeff of Kerry 14.6 H (11.5-14.5) % Plt Count 165 (130-400) K/uL MPV 11.0 H (7.4-10.4) fL Immature Gran % (Auto) 0.5 % Neut % (Auto) 67.2 % Lymph % (Auto) 20.7 % Holt % (Auto) 9.5 % Eos % (Auto) 1.6 % Baso % (Auto) 0.5 % Immature Gran # (Auto) 0.05 H (0.00-0.02) K/uL Neut # (Auto) 7.39 H (1.4-6.5) K/uL Lymph # (Auto) 2.28 (1.2-3.4) K/uL Holt # (Auto) 1.05 H (0.11-0.59) K/uL Eos # (Auto) 0.18 (0-0.5) K/uL Baso # (Auto) 0.05 (0-0.2) K/uL Sodium 140 (136-145) mmol/L Potassium 2.5 L* (3.5-5.1) mmol/L Chloride 94 L (98-107) mmol/L Carbon Dioxide 38 H (21-32) mmol/L Anion Gap 9.0 (3-11) BUN 50 H (7-18) mg/dl Creatinine 1.81 H D (0.6-1.2) mg/dl Est Cr Clr Drug Dosing 28.2 ml/min Est GFR ( Amer) 28.8 Est GFR (Non-Af Amer) 24.9 BUN/Creatinine Ratio 27.5 H (10-20) Glucose 122 H (70-99) mg/dl Calcium 9.7 (8.5-10.1) mg/dl Magnesium 2.4 (1.8-2.4) mg/dl Total Bilirubin 0.4 (0.2-1) mg/dl AST 21 (15-37) U/L ALT 19 (12-78) U/L Alkaline Phosphatase 67 (45-117) U/L Troponin I < 0.015 (0-0.045) ng/ml Total Protein 7.5 (6.4-8.2) gm/dl Albumin 3.2 L (3.4-5.0) gm/dl Globulin 4.3 H (2.5-4.0) gm/dl Albumin/Globulin Ratio 0.8 L (0.9-2) TSH 3.350 (0.300-4.500) uIu/ml Specimen Hemolysis Imaging Data Radiologist's Impression: Radiology results as stated below per my review and the radiologist's interpretation: XR chest 1V portable HISTORY: Congestive heart failure. Shortness of breath. COMPARISON: Chest 05/24/2018. FINDINGS: No pneumothorax. No pleural effusions. The heart remains mildly enlarged. Left-sided dual-chamber pacemaker. Perihilar interstitial and vascular thickening persists. This suggest mild pulmonary vascular congestion without overt edema. There are low lung volumes. Old, healed left humeral fracture. IMPRESSION: No change in the mild cardiomegaly and mild pulmonary vascular congestion. Electronically signed by: Jordon Espinal M.D. 06/20/2018 9:01 PM ECG Data Attestation: I personally reviewed and interpreted this ECG as follows: Rate (beats per minute): 66 Rhythm: normal sinus Findings: + other (prolonged QTC, mild specific T wave changes); no PVC and no ST elevation Blood Pressure Blood Pressure Findings: Low blood pressure Blood Pressure Disposition: elevated BP felt to be situational MDM Narrative 88-year-old female with a history of CHF, COPD, A. fib, all times, asthma and pacemaker presenting today referred from her facility for laboratory abnormal really had issues with increase fluid retention CHF and increased Lasix. Laboratory results today showed signs of significant hypokalemia along with an elevated kidney function. Patient is pleasantly demented here without significant plane. Discussed with the patient's daughter states that they have diurese the patient with Bumex over the weekend and her edema is improving but again laboratory abnormalities were found today.EKG does show some slight QT prolongation no evidence of acute ischemia. Chest x-ray with slight pulmonary congestion but again the patient does not clinically agree that overloaded at this point. Significant hypokalemia headache and acute kidney injury is noted on laboratory studies here. Did start some potassium IV supplementation here and discussed with the hospitalist for admission. Impression & Plan Acute hypokalemia, AMBER (acute kidney injury) Discharge Plan Visit Data Chief Complaint: Abnormal Labs/Diagnostic Testing Stated Complaint: POTASSIUM 2.4 ED Provider: [facility] [facility] Discharge Problem: Acute hypokalemia, AMBER (acute kidney injury) Patient Disposition: Being Evaluated by Hospitalist Condition: Good Forms Stand Alone Forms: [facility] Prescriptions Prescriptions: No Action ipratropium-albuterol 0.5 mg-3 mg(2.5 mg base)/3 mL Solution For Nebulization 3 ml INHALATION Q6 PRN (Reason: Shortness Of Breath Or Wheezing) RF: 0 loperamide 2 mg Capsule 2 mg PO UD PRN (Reason: Diarrhea) RF: 0 polyethylene glycol 3350 [Miralax] 17 gram Powder In Packet 17 g PO DAILY PRN (Reason: Constipation) RF: 0 donepezil [Aricept] 10 mg tablet 10 mg PO HS RF: 0 metoprolol succinate [Toprol XL] 100 mg tablet extended release 24 hr 100 mg PO DAILY RF: 0 metolazone 5 mg tablet 5 mg PO 3XWK RF: 0 acetaminophen [Tylenol Extra Strength] 500 mg Tablet 500 mg PO Q4 PRN (Reason: Fever Or Pain) RF: 0 potassium chloride [Klor-Con M20] 20 mEq tablet,ER particles/crystals 20 meq PO DAILY RF: 0 lorazepam 0.5 mg Tablet 0.5 mg PO UD PRN (Reason: prior to transport) RF: 0 furosemide [Lasix] 80 mg tablet 80 mg PO BID RF: 0 diphenhydramine HCl [Banophen] 25 mg Tablet 25 mg PO Q6 PRN (Reason: itch/rash) RF: 0 budesonide [Pulmicort] 0.5 mg/2 mL suspension for nebulization 1 vial Inhalation BID RF: 0 diltiazem HCl [Cardizem CD] 120 mg capsule,extended release 24hr 120 mg PO DAILY RF: 0 nystatin 100,000 unit/gram Powder 1 applic TOPICAL TID PRN (Reason: Unknown) RF: 0 sertraline [Zoloft] 50 mg tablet 50 mg PO DAILY RF: 0 memantine [Namenda] 5 mg tablet 5 mg PO DAILY RF: 0 Xarelto 20 mg tablet 20 mg PO DAILY RF: 0 Breo Ellipta 200-25 mcg/dose blister with device 1 puff Inhalation DAILY RF: 0 Oyster Shell Calcium-Vit D3 500 mg(1,250mg) -200 unit Powder In Packet 1 tab PO DAILY RF: 0 Referrals Referrals: Kiara Lewis MD [Primary Care Provider] - The scribe's documentation has been prepared under my direction and personally reviewed by me in its entirety. I confirm that the note above accurately reflects all work, treatment, procedures, and medical decision making performed by me.
--- NOTE | 2018-06-20 21:03 | XRay Report ---
XR chest 1V portable HISTORY: Congestive heart failure. Shortness of breath. COMPARISON: Chest 05/24/2018. FINDINGS: No pneumothorax. No pleural effusions. The heart remains mildly enlarged. Left-sided dual-c hamber pacemaker. Perihilar interstitial and vascular thickening persists. This suggest mild pulmonar y vascular congestion without overt edema. There are low lung volumes. Old, healed left humeral fract ure. IMPRESSION: No change in the mild cardiomegaly and mild pulmonary vascular congestion. Electronically signed by: Jordon Espinal M.D. 06/20/2018 9:01 PM
[2018-06-20 21:13] LABS: Basophils # (auto) 0.05 K/uL (0-0.2); Basophils % (auto) 0.5 %; Eosinophils # (auto) 0.18 K/uL (0-0.5); Eosinophils % (auto) 1.6 %; Hematocrit (blood only) 45.3 % (37-47); Hemoglobin 14.4 g/dL (12.0-16.0); Immature Granulocytes # (auto) 0.05 K/uL (0.00-0.02); Immature Granulocytes % (auto) 0.5 %; Lymphocytes # (auto) 2.28 K/uL (1.2-3.4); Lymphocytes % (auto) 20.7 %; Mean Corpuscular Hgb Conc 31.8 g/dL (32-36); Mean Corpuscular Volume 98.9 fL (80-100); Monocytes # (auto) 1.05 K/uL (0.11-0.59); Monocytes % (auto) 9.5 %; Neutrophils # (auto) 7.39 K/uL (1.4-6.5); Neutrophils % (auto) 67.2 %; Platelet Count 165 K/uL (130-400); RDW Coefficient of Variation 14.6 % (11.5-14.5); RDW Standard Deviation 53.3 fL (36.4-46.3); Red Blood Count 4.58 M/uL (4.2-5.4)
[2018-06-20 21:46] LABS: Alanine Aminotransferase 19 U/L (12-78); Albumin Globulin Ratio 0.8 (0.9-2); Albumin Level 3.2 gm/dl (3.4-5.0); Alkaline Phosphatase 67 U/L (45-117); Aspartate Aminotransferase 21 U/L (15-37); BUN Creatinine Ratio 27.5 (10-20); Bilirubin,Total 0.4 mg/dl (0.2-1); Blood Urea Nitrogen 50 mg/dl (7-18); Calcium 9.7 mg/dl (8.5-10.1); Carbon Dioxide 38 mmol/L (21-32); Chloride 94 mmol/L (98-107); Creatinine Clr Calc Pharmacy 28.2 ml/min; Est GFR (African American) 28.8; Est GFR (Non-African American) 24.9; Globulin 4.3 gm/dl (2.5-4.0); Glucose 122 mg/dl (70-99); Magnesium 2.4 mg/dl (1.8-2.4); Potassium 2.5 mmol/L (3.5-5.1); Sodium 140 mmol/L (136-145); Total Protein 7.5 gm/dl (6.4-8.2); Troponin I < 0.015 ng/ml (0-0.045)
[2018-06-20] MEDS ORDERED: SODIUM CHLORIDE 0.9% 1000ML 250 ML IV ONE (21:47)
[2018-06-20] MEDS ORDERED: POTASSIUM CHLORIDE / WTR 10 MEQ/100 ML PLCT IV ONE (21:47)
--- NOTE | 2018-06-20 22:53 | History & Physical Report ---
Date of Service June 20, 2018 Assessment & Plan (1) Acute hypokalemia: Ms. Stover is an 88-year-old female with a history of chronic diastolic heart failure, hypertension, chronic leg edema, dementia, hyperlipidemia, COPD, and atrial fibrillation who presents to the emergency department, due to a potassium level of 2.5. ED course: 10 M EQ of potassium chloride, 250 mL bolus of normal saline -Admit to telemetry -Patient's potassium on admission is 2.5, significant drop from when it was checked a month ago and was 4.1 -Likely related to recent addition of metolazone to patient's diuretic regimen -Will administer 40 mEq of potassium chloride PO x2 and 10 mEq of potassium chloride x1 -recheck BMP tomorrow -Patient takes 20 mEq of potassium chloride 3 times a day, this will need to be increased on discharge -Recommend a reduction in metolazone +/- addition of Spironolactone to diuretic regimen -Hold home Lasix tonight, can restart tomorrow depending on potassium levels -Patient scheduled to get metolazone Sunday, Sunday and Sunday - will hold for now pending reassessment tomorrow Acute Kidney Injury -Creatinine is worse from baseline, likely related to aggressive diuresis -Creatinine 1.81 today, recheck tomorrow Congestive heart failure -Holding home Lasix and metolazone, as above -Strict I's and O's, daily weights, low-salt diet -Patient has reportedly lost 12 pounds, with the addition of metolazone to her diuretic regimen -Patient currently 276 pounds, dry weight upon review of outpatient heart failure clinic records appears to be 260 pounds -Continue 2 L of oxygen at night Hypertension -Continue home metoprolol and diltiazem Atrial fibrillation -Patient has a pacemaker that was placed in 08/2017 due to significant pauses that occurred when converting from atrial fibrillation to sinus rhythm -Continue home metoprolol, diltiazem and rivaroxaban Alzheimer's disease -Continue home memantine and donepezil COPD -Continue home Pulmicort, Breo, PRN DuoNebs Depression -Continue home sertraline CODE STATUS: DNR, per discussion with patient and daughter Disposition: Admit to telemetry. Patient resides at [facility] DVT prophylaxis: Xarelto F/E/N: Low-sodium diet. Electrolyte abnormalities addressed above. No IVF (2) AMBER (acute kidney injury): (3) Hypertension: (4) A-fib: (5) Alzheimers disease: (6) Congestive heart failure: (7) COPD (chronic obstructive pulmonary disease): History of Present Illness Primary Care Provider: Kiara Lewis MD Ms. Stover is an 88-year-old female with a history of chronic diastolic heart failure, hypertension, chronic leg edema, dementia, hyperlipidemia, COPD, atrial fibrillation presents to the emergency department, due to a potassium level of 2.3. She denies any complaints today, and states that she does not have chest pain, palpitations, shortness of breath. She was started on metolazone by her PCP on June 14, 2018 due to persistent shortness of breath, weight gain and lower extremity swelling. She had a follow-up BMP drawn this morning, which showed a potassium level of 2.4, and she was referred to the emergency depa rtment for further evaluation. The patient and her daughter state that Ms. Stover's legs appear much better, after starting the metolazone. They have no other complaints at this time. Of note, Ms. Stover resides at [facility]. Allergies Allergy/AdvReac Type Severity Reaction Status Date / Time No Known Allergies Allergy Verified 06/20/18 21:23 Home Medications Home Medications Medication Instructions Recorded Confirmed Type acetaminophen [Tylenol Extra 500 mg PO Q4 PRN 06/20/18 06/20/18 History Strength] budesonide [Pulmicort] 1 vial INHALATION BID 06/20/18 06/20/18 History calcium carbonate-vitamin D3 1 tab PO DAILY 06/20/18 06/20/18 History [Oyster Shell Calcium-Vit D3] diltiazem HCl [Cardizem CD] 120 mg PO DAILY 06/20/18 06/20/18 History diphenhydramine HCl [Banophen] 25 mg PO Q6 PRN 06/20/18 06/20/18 History donepezil [Aricept] 10 mg PO HS 06/20/18 06/20/18 History fluticasone-vilanterol [Breo 1 puff INHALATION DAILY 06/20/18 06/20/18 History Ellipta] furosemide [Lasix] 80 mg PO BID 06/20/18 06/20/18 History ipratropium-albuterol 3 ml INHALATION Q6 PRN 06/20/18 06/20/18 History loperamide 2 mg PO UD PRN 06/20/18 06/20/18 History lorazepam 0.5 mg PO UD PRN 06/20/18 06/20/18 History memantine [Namenda] 5 mg PO DAILY 06/20/18 06/20/18 History metolazone 5 mg PO 3XWK 06/20/18 06/20/18 History metoprolol succinate [Toprol XL] 100 mg PO DAILY 06/20/18 06/20/18 History nystatin 1 applic TOPICAL TID PRN 06/20/18 06/20/18 History polyethylene glycol 3350 [Miralax] 17 g PO DAILY PRN 06/20/18 06/20/18 History potassium chloride [Klor-Con M20] 20 meq PO DAILY 06/20/18 06/20/18 History rivaroxaban [Xarelto] 20 mg PO DAILY 06/20/18 06/20/18 History sertraline [Zoloft] 50 mg PO DAILY 06/20/18 06/20/18 History Past Med/Surg History Social History Communication Ability: Impaired Beliefs That Will Affect Care: None Current Living Situation: Personal Care Facility Current Living Situation Comment: [facility] Other Information That Helps Us Care for You: No Feels Safe at Home: Yes Safety Concerns: Feels Safe At This Time Smoking Status: Never smoker Hx Alcohol Use: No Hx Substance Use: No Review of Systems Constitutional: no fever and no chills Respiratory: no cough, no dyspnea and no wheezing Cardiovascular: + edema; no chest pain, no palpitations and no calf pain Gastrointestinal: no abdominal pain, no nausea, no vomiting and no change in bowel habits Genitourinary (Female): + urinary frequency (secondary to lasix and metolazone); no dysuria and no urinary hesitancy Integumentary: no rash and no lesions Physical Exam Vital Signs (Past 24 Hours): Last Vital Signs Temp 36.3 C L 06/20/18 19:44 Pulse 73 06/20/18 22:40 Resp 21 06/20/18 22:40 BP 115/56 L 06/20/18 22:06 Pulse Ox 94 06/20/18 22:20 Constitutional: well developed, well nourished, + morbidly obese, cooperative and comfortable Eyes: PERRL, conjunctivae normal, anicteric sclerae Respiratory: normal respiratory effort and able to speak in complete sentences; no cough Auscultation: + diminished lung sounds; no crackles and no wheezes Cardiovascular: Rate/Rhythm: regular rate; + abnormal rhythm Vessels: radial pulses present Extremities: + edema (1+ bilaterally); no calf tenderness Gastrointestinal (Abdomen): Percussion/Palpation: abdomen soft; abdomen nontender, no guarding and abdomen not rigid Skin: chronic venous stasis changes on b/l legs - mildly erythematous, but not tender or warm to touch Results & Data Laboratory Results Laboratory Results - last 24 hr 06/20/18 06/20/18 21:06 21:06 WBC 11.00 H RBC 4.58 Hgb 14.4 Hct 45.3 MCV 98.9 MCH 31.4 MCHC 31.8 L RDW Std Deviation 53.3 H RDW Coeff of Kerry 14.6 H Plt Count 165 MPV 11.0 H Immature Gran % (Auto) 0.5 Neut % (Auto) 67.2 Lymph % (Auto) 20.7 Simpson % (Auto) 9.5 Eos % (Auto) 1.6 Baso % (Auto) 0.5 Immature Gran # (Auto) 0.05 H Neut # (Auto) 7.39 H Lymph # (Auto) 2.28 Simpson # (Auto) 1.05 H Eos # (Auto) 0.18 Baso # (Auto) 0.05 Sodium 140 Potassium 2.5 L* Chloride 94 L Carbon Dioxide 38 H Anion Gap 9.0 BUN 50 H Creatinine 1.81 H D Est Cr Clr Drug Dosing 28.2 Est GFR ( Amer) 28.8 Est GFR (Non-Af Amer) 24.9 BUN/Creatinine Ratio 27.5 H Glucose 122 H Calcium 9.7 Magnesium 2.4 Total Bilirubin 0.4 AST 21 ALT 19 Alkaline Phosphatase 67 Troponin I < 0.015 Total Protein 7.5 Albumin 3.2 L Globulin 4.3 H Albumin/Globulin Ratio 0.8 L TSH 3.350 Specimen Hemolysis Supervising Physician Co-Signing Physician Notes Attending addendum: I have physically seen this patient, have supervised the medical residents activities, and agree with the H&P unless as otherwise noted. Assessment and Plan: Acute kidney injury/hypokalemia-- Potassium 2.5, creatinine 1.81. Give Klor-Con 40 mEq p.o. x2, and 10 mEq IV x1. Hold Lasix and metolazone tonight. Place on normal saline at 60 mils per hour. Repeat BMP and magnesium level in the a.m. CHF/hypertension/atrial fibrillation-- For tonight, hold Lasix and metolazone. Will readdress in the morning after laboratories completed. Continue metoprolol, diltiazem and Xarelto with hold parameters. Remaining orders and notations as noted. Resident Activity Tracking Resident Involvement: Resident Care Provided Care Provided: Adult Hospital Medicine
[2018-06-20 23:43] LABS: INR 1.1 (0.9-1.1); Partial Thromboplastin Ratio 0.9; Partial Thromboplastin Time 23.9 Seconds (21.0-31.0); Prothrombin Time 11.3 Seconds (9.0-12.0)
[2018-06-20] MEDS ORDERED: ACETAMINOPHEN 325 MG TAB PO PRN (23:43)
[2018-06-20] MEDS ORDERED: POLYETHYLENE (MIRALAX) 17 GM PACK PO PRN (23:43)
[2018-06-21] MEDS ORDERED: POTASSIUM CHLORIDE / WTR 10 MEQ/100 ML PLCT IV ONE
[2018-06-21] MEDS ORDERED: POTASSIUM CHLORIDE 20 MEQ TABCR PO ONE
[2018-06-21 06:05] LABS: Basophils # (auto) 0.04 K/uL (0-0.2); Basophils % (auto) 0.4 %; Eosinophils # (auto) 0.17 K/uL (0-0.5); Eosinophils % (auto) 1.7 %; Hematocrit (blood only) 43.2 % (37-47); Hemoglobin 14.1 g/dL (12.0-16.0); Immature Granulocytes # (auto) 0.04 K/uL (0.00-0.02); Immature Granulocytes % (auto) 0.4 %; Lymphocytes # (auto) 2.13 K/uL (1.2-3.4); Mean Corpuscular Hgb Conc 32.6 g/dL (32-36); Mean Corpuscular Volume 96.9 fL (80-100); Mean Platelet Volume 10.9 fL (7.4-10.4); Monocytes % (auto) 8.9 %; Neutrophils # (auto) 6.86 K/uL (1.4-6.5); Neutrophils % (auto) 67.6 %; Platelet Count 180 K/uL (130-400); RDW Coefficient of Variation 14.5 % (11.5-14.5); RDW Standard Deviation 51.2 fL (36.4-46.3); Red Blood Count 4.46 M/uL (4.2-5.4); White Blood Count 10.14 K/uL (4.8-10.8)
[2018-06-21 06:39] LABS: BUN Creatinine Ratio 32.4 (10-20); Calcium 8.9 mg/dl (8.5-10.1); Creatinine Clr Calc Pharmacy 34.4 ml/min; Est GFR (African American) 37.4; Est GFR (Non-African American) 32.3
[2018-06-21] MEDS: BUDESONIDE 0.5 MG/2 ML VIAL (PULMICORT) INH SCH ×2 (07:09→19:26)
[2018-06-21] MEDS ORDERED: POTASSIUM CHLORIDE 20 MEQ TABCR PO STA ×2 (08:41→16:41)
[2018-06-21] MEDS: POTASSIUM CHLORIDE / WTR 10 MEQ/100 ML PLCT IV SCH ×6 (09:12→18:20)
[2018-06-21] MEDS: METOPROLOL SUCC 50MG EXT REL TAB PO SCH (09:13)
[2018-06-21] MEDS: MEMANTINE HCL 5 MG TAB PO SCH (09:13)
[2018-06-21] MEDS: dilTIAZem HCL 120 MG CAPCR PO SCH (09:13)
[2018-06-21] MEDS: SERTRALINE HCL 50 MG TABLET PO SCH (09:13)
[2018-06-21] MEDS: CALCIUM 600MG + VIT D 400 IU TAB PO SCH (09:13)
--- NOTE | 2018-06-21 10:41 | Hospitalist Progress Note ---
Date of Service June 21, 2018 Assessment & Plan (1) Acute hypokalemia: Improved today to 3.0 from 2.4 on admission. Is secondary to metalozone daily since 06/14/18 -dc Metolazone -holding lasix as well for now -follow BMP at 1700 today and in AM-repeat potassium 3.3- -replace today with KCl 40meq IV and KCl 40 meq po in the morning, and now will give another 20 mEq IV and [address] with some [address] depressions anterolat leads--> repeat ECG again with anterolateral ST depression likely related to hypokalemia and tachycardia (2) A-fib: With RVR with rates into the 140s at times this morning Normally rate controlled on usual regimen but may be exacerbated by hypokalemia and dehydration -continue home Toprol XL 100mg daily and dilt 120mg CD daily -give one time dose of dilt 30mg po now and can give more later if needed -follow on tele -continue Xarelto but changed to renal dosing of 15 mg daily -consult Cardiology-discussed the case with cardiology PA who is in agreement with my plan -consider interrogation of pacer-last was 03/2018 and was with less Afib burden as per Cardio outpt notes (3) Congestive heart failure: With presumed chronic diastolic CHF as per previous cardiology notes. Last echocardiogram was many years ago. With chronic lower extremity edema and weight gain of 20 pounds in the last 7 months as per review of the outpatient record. Thought to be volume overloaded as an outpatient and was given metolazone starting 06/14. Now with euvolemia and hypokalemia with acute kidney injury -Daily weights, strict I's and O's -Holding all diuretics at this time (4) AMBER (acute kidney injury): Creatinine 1.8 on admission and now down to 1.46 likely secondary to metolazone and loop diuretic -Continue to hold diuresis at this time -Follow BMP (5) Hypertension: Blood pressures are fairly well-controlled -Continue diltiazem 120 mg daily -Continue Toprol XL 100 mg daily -Holding diuretics as above (6) Alzheimers disease: With known moderate-severe dementia -No behavioral disturbance noted -Continue donepezil 10 mg at bedtime, Namenda 5 mg daily -Supportive care (7) Chronic respiratory failure with hypoxia: Is on 2 and half liters nasal cannula nightly - will order for here (8) COPD (chronic obstructive pulmonary disease): Stable -Continue budesonide nebulizer twice daily to substitute for home Pulmicort, albuterol nebulizer as needed (9) Obesity: BMI 49 (10) DVT prophylaxis: Xarelto Disposition-remain on telemetry Subjective Patient has no complaints. She denies shortness of breath or chest pain. She is pleasantly confused and asked where she is. She does however recall me when I reminded her that I have known her since I was a child. Telemetry currently with atrial fibrillation in the 120s-150s, earlier today she was in the normal sinus rhythm. Review of Systems All systems reviewed & are unremarkable except as noted in HPI & below Physical Exam Vital Signs (Past 24 Hours): Last Vital Signs Temp 36.5 C 06/21/18 08:00 Pulse 88 06/21/18 08:00 Resp 18 06/21/18 08:00 BP 111/76 06/21/18 08:00 Pulse Ox 93 06/21/18 08:00 Constitutional: WD/WN, vitals as above Eyes: PERRL, conjunctivae normal, anicteric sclerae ENMT: external ear and nose normal, oropharynx normal Neck: trachea midline, no thyromegaly Respiratory: normal respiratory effort, lungs clear to auscultation Cardiovascular: Rate/Rhythm: + tachycardic; + abnormal rhythm (Irregularly irregular) Heart Sounds: no murmur Extremities: + edema (1+ pitting edema with chronic venous stasis changes in the legs bilaterally) Gastrointestinal (Abdomen): normal bowel sounds, soft, nontender, no hepatosplenomegaly Musculoskeletal: Extremities: extremities normal to inspection; no cyanosis and no clubbing Skin: no rashes, warm and dry Neurologic: moves all extremities and awake; no focal motor deficits Psychiatric: Orientation: alert, oriented to person and cooperative; + not oriented to place and + not oriented to time Results & Data Laboratory Results 06/21/18 06/21/18 06/21/18 Range/Units 16:00 05:35 05:35 WBC (4.8-10.8) K/uL RBC (4.2-5.4) M/uL Hgb (12.0-16.0) g/dL Hct (37-47) % MCV (80-100) fL MCH (25-34) pg MCHC (32-36) g/dL RDW Std Deviation (36.4-46.3) fL RDW Coeff of [place] (11.5-14.5) % Plt Count (130-400) K/uL MPV (7.4-10.4) fL Immature Gran % (Auto) % Neut % (Auto) % Lymph % (Auto) % [place] % (Auto) % Eos % (Auto) % Baso % (Auto) % Immature Gran # (Auto) (0.00-0.02) K/uL Neut # (Auto) (1.4-6.5) K/uL Lymph # (Auto) (1.2-3.4) K/uL [place] # (Auto) (0.11-0.59) K/uL Eos # (Auto) (0-0.5) K/uL Baso # (Auto) (0-0.2) K/uL PT (9.0-12.0) Seconds INR (0.9-1.1) APTT (21.0-31.0) Seconds PTT Ratio Sodium 142 142 (136-145) mmol/L Potassium 3.3 L 3.0 L D (3.5-5.1) mmol/L Chloride 101 98 (98-107) mmol/L Carbon Dioxide 36 H 37 H (21-32) mmol/L Anion Gap 5.0 7.0 (3-11) BUN 45 H 47 H (7-18) mg/dl Creatinine 1.21 H 1.46 H D (0.6-1.2) mg/dl Est Cr Clr Drug Dosing 41.5 34.4 ml/min Est GFR ( Amer) 46.9 37.4 Est GFR (Non-Af Amer) 40.5 32.3 BUN/Creatinine Ratio 36.9 H 32.4 H (10-20) Glucose 136 H 122 H (70-99) mg/dl Calcium 9.2 8.9 (8.5-10.1) mg/dl Magnesium (1.8-2.4) mg/dl Total Bilirubin (0.2-1) mg/dl AST (15-37) U/L ALT (12-78) U/L Alkaline Phosphatase (45-117) U/L Troponin I < 0.015 < 0.015 (0-0.045) ng/ml Total Protein (6.4-8.2) gm/dl Albumin (3.4-5.0) gm/dl Globulin (2.5-4.0) gm/dl Albumin/Globulin Ratio (0.9-2) TSH (0.300-4.500) uIu/ml Specimen Hemolysis 06/21/18 06/20/18 06/20/18 Range/Units 05:35 23:17 21:06 WBC 10.14 (4.8-10.8) K/uL RBC 4.46 (4.2-5.4) M/uL Hgb 14.1 (12.0-16.0) g/dL Hct 43.2 (37-47) % MCV 96.9 (80-100) fL MCH 31.6 (25-34) pg MCHC 32.6 (32-36) g/dL RDW Std Deviation 51.2 H (36.4-46.3) fL RDW Coeff of [place] 14.5 (11.5-14.5) % Plt Count 180 (130-400) K/uL MPV 10.9 H (7.4-10.4) fL Immature Gran % (Auto) 0.4 % Neut % (Auto) 67.6 % Lymph % (Auto) 21.0 % [place] % (Auto) 8.9 % Eos % (Auto) 1.7 % Baso % (Auto) 0.4 % Immature Gran # (Auto) 0.04 H (0.00-0.02) K/uL Neut # (Auto) 6.86 H (1.4-6.5) K/uL Lymph # (Auto) 2.13 (1.2-3.4) K/uL [place] # (Auto) 0.90 H (0.11-0.59) K/uL Eos # (Auto) 0.17 (0-0.5) K/uL Baso # (Auto) 0.04 (0-0.2) K/uL PT 11.3 (9.0-12.0) Seconds INR 1.1 (0.9-1.1) APTT 23.9 (21.0-31.0) Seconds PTT Ratio 0.9 Sodium 140 (136-145) mmol/L Potassium 2.5 L* (3.5-5.1) mmol/L Chloride 94 L (98-107) mmol/L Carbon Dioxide 38 H (21-32) mmol/L Anion Gap 9.0 (3-11) BUN 50 H (7-18) mg/dl Creatinine 1.81 H D (0.6-1.2) mg/dl Est Cr Clr Drug Dosing 28.2 ml/min Est GFR ( Amer) 28.8 Est GFR (Non-Af Amer) 24.9 BUN/Creatinine Ratio 27.5 H (10-20) Glucose 122 H (70-99) mg/dl Calcium 9.7 (8.5-10.1) mg/dl Magnesium 2.4 (1.8-2.4) mg/dl Total Bilirubin 0.4 (0.2-1) mg/dl AST 21 (15-37) U/L ALT 19 (12-78) U/L Alkaline Phosphatase 67 (45-117) U/L Troponin I < 0.015 (0-0.045) ng/ml Total Protein 7.5 (6.4-8.2) gm/dl Albumin 3.2 L (3.4-5.0) gm/dl Globulin 4.3 H (2.5-4.0) gm/dl Albumin/Globulin Ratio 0.8 L (0.9-2) TSH 3.350 (0.300-4.500) uIu/ml Specimen Hemolysis 06/20/18 Range/Units 21:06 WBC 11.00 H (4.8-10.8) K/uL RBC 4.58 (4.2-5.4) M/uL Hgb 14.4 (12.0-16.0) g/dL Hct 45.3 (37-47) % MCV 98.9 (80-100) fL MCH 31.4 (25-34) pg MCHC 31.8 L (32-36) g/dL RDW Std Deviation 53.3 H (36.4-46.3) fL RDW Coeff of [place] 14.6 H (11.5-14.5) % Plt Count 165 (130-400) K/uL MPV 11.0 H (7.4-10.4) fL Immature Gran % (Auto) 0.5 % Neut % (Auto) 67.2 % Lymph % (Auto) 20.7 % [place] % (Auto) 9.5 % Eos % (Auto) 1.6 % Baso % (Auto) 0.5 % Immature Gran # (Auto) 0.05 H (0.00-0.02) K/uL Neut # (Auto) 7.39 H (1.4-6.5) K/uL Lymph # (Auto) 2.28 (1.2-3.4) K/uL [place] # (Auto) 1.05 H (0.11-0.59) K/uL Eos # (Auto) 0.18 (0-0.5) K/uL Baso # (Auto) 0.05 (0-0.2) K/uL PT (9.0-12.0) Seconds INR (0.9-1.1) APTT (21.0-31.0) Seconds PTT Ratio Sodium (136-145) mmol/L Potassium (3.5-5.1) mmol/L Chloride (98-107) mmol/L Carbon Dioxide (21-32) mmol/L Anion Gap (3-11) BUN (7-18) mg/dl Creatinine (0.6-1.2) mg/dl Est Cr Clr Drug Dosing ml/min Est GFR ( Amer) Est GFR (Non-Af Amer) BUN/Creatinine Ratio (10-20) Glucose (70-99) mg/dl Calcium (8.5-10.1) mg/dl Magnesium (1.8-2.4) mg/dl Total Bilirubin (0.2-1) mg/dl AST (15-37) U/L ALT (12-78) U/L Alkaline Phosphatase (45-117) U/L Troponin I (0-0.045) ng/ml Total Protein (6.4-8.2) gm/dl Albumin (3.4-5.0) gm/dl Globulin (2.5-4.0) gm/dl Albumin/Globulin Ratio (0.9-2) TSH (0.300-4.500) uIu/ml Specimen Hemolysis (1) Congestive heart failure Heart failure type: diastolic Heart failure chronicity: chronic Qualified Code(s): I50.32 - Chronic diastolic (congestive) heart failure (2) A-fib Atrial fibrillation type: paroxysmal Qualified Code(s): I48.0 - Paroxysmal atrial fibrillation (3) Hypertension Hypertension type: essential hypertension Qualified Code(s): I10 - Essential (primary) hypertension
[2018-06-21] MEDS ORDERED: dilTIAZem HCL 30 MG TAB PO STA (10:49)
--- NOTE | 2018-06-21 12:01 | Cardiology Consultation ---
Date of Consultation June 21, 2018 Assessment & Plan (1) A-fib: 2. Chronic diastolic CHF 3. Hypokalemia 4. Acute renal insufficiency 5. Dementia 6. Dual chamber pacemaker Patient has a history of paroxysmal atrial fibrillation with significant pauses when converting to sinus rhythm post dual chamber pacemaker. She recently was started on metolazone in addition to her Lasix for hypervolemia. She then developed acute renal insufficiency and hypokalemia. She is in atrial fibrillation with RVR. She is asymptomatic. Her significant hypokalemia is likely contributing to her uncontrolled ventricular rate. Agree with potassium replacement. She was just given an extra dose of diltiazem 30 mg. If rate remains uncontrolled consider increasing her long acting diltiazem. She has a pacemaker so we do not need to worry about bradycardia. Continue anticoagulation for stroke risk reduction. On exam she appears well perfused without significant vascular congestion. Her diuretics are on hold given her hypokalemia and renal insufficiency. Would try to avoid the use of IV fluids if possible. History of Present Illness Reason for Consultation: Afib with RVR Attending Physician: Madonna Sloan MD History of Present Illness Mrs. Stover is an 88-year-old female with a medical history significant for paroxysmal atrial fibrillation with RVR, history of significant pauses status post dual chamber pacemaker implantation, chronic diastolic CHF, hypertension, obesity, cerebrovascular disease and dementia. She is followed in the Cardiology office by Dr. Cannon. Patient has dementia and resides at [facility]. She is unable to provide a history and no family was present at the time of my visit. She was admitted on 06/20/18 with significant hypokalemia (initial K 2.4) and acute renal insufficiency. Patient saw her PCP on 06/14/18 and was started on metolazone 5 mg daily in addition to her Lasix 80 mg twice daily due to weight gain, increased edema and shortness of breath. Today she has been in atrial fibrillation with RVR. She is asymptomatic without palpitations. She also denies chest pain, shortness of breath, orthopnea, PND, lightheadedness, near syncope or syncope. Her last pacemaker interrogation in March 2018 demonstrated she was in atrial fibrillation 18% of the time with controlled ventricular response. As an outpatient she takes diltiazem 120 mg daily and metoprolol succinate 100 mg daily for rate control. She is chronically anticoagulated with Xarelto. Allergies Allergy/AdvReac Type Severity Reaction Status Date / Time No Known Allergies Allergy Verified 06/20/18 21:23 Home Medications Home Medications Medication Instructions Recorded Confirmed Type Breo Ellipta 1 puff INHALATION DAILY 06/20/18 06/20/18 History Oyster Shell Calcium-Vit D3 1 tab PO DAILY 06/20/18 06/20/18 History Xarelto 20 mg PO DAILY 06/20/18 06/20/18 History acetaminophen [Tylenol Extra 500 mg PO Q4 PRN 06/20/18 06/20/18 History Strength] budesonide [Pulmicort] 1 vial INHALATION BID 06/20/18 06/20/18 History diltiazem HCl [Cardizem CD] 120 mg PO DAILY 06/20/18 06/20/18 History diphenhydramine HCl [Banophen] 25 mg PO Q6 PRN 06/20/18 06/20/18 History donepezil [Aricept] 10 mg PO HS 06/20/18 06/20/18 History ipratropium-albuterol 3 ml INHALATION Q6 PRN 06/20/18 06/20/18 History loperamide 2 mg PO UD PRN 06/20/18 06/20/18 History memantine [Namenda] 5 mg PO DAILY 06/20/18 06/20/18 History metoprolol succinate [Toprol XL] 100 mg PO DAILY 06/20/18 06/20/18 History nystatin 1 applic TOPICAL TID PRN 06/20/18 06/20/18 History polyethylene glycol 3350 [Miralax] 17 g PO DAILY PRN 06/20/18 06/20/18 History sertraline [Zoloft] 50 mg PO DAILY 06/20/18 06/20/18 History lorazepam 0.5 mg PO UD PRN #15 tab 06/24/18 06/20/18 Rx potassium chloride [Klor-Con M20] 20 meq PO BID #60 tab 06/24/18 06/20/18 Rx torsemide 20 mg PO BID #60 tab 06/24/18 Rx Patient History Social History Preferred Language: Bulgarian Beliefs That Will Affect Care: None Current Living Situation: Personal Care Facility Current Living Situation Comment: [facility] Feels Safe at Home: Yes Smoking Status: Never smoker Hx Alcohol Use: No Hx Substance Use: No Physical Exam Vital Signs (Past 24 Hours): Last Vital Signs Temp 36.6 C 06/21/18 10:43 Pulse 105 H 06/21/18 10:43 Resp 18 06/21/18 10:43 BP 130/82 06/21/18 10:43 Pulse Ox 93 06/21/18 10:43 Physical Exam: General: No acute distress, comfortable. HEENT: Head is normal. PERRLA. EOMI. Sclerae anicteric. Ears, nose and throat unremarkable. Mucous membranes moist. Neck: Normal carotid upstrokes, no bruits. JVD difficult to assess given body habitus Lungs: Clear to auscultation bilaterally without rales, rhonchi or wheezes. Cardiac: Irregularly irregular. Tachycardic. S1-S2 normal. No appreciable murmur, gallop or rub. Abdomen: Soft and nontender. Bowel sounds normal. No mass or organomegaly. No abdominal bruit. Extremities/vascular: Well perfused. No significant lower extremity edema. Radial, DP and PT pulses intact bilaterally Skin: No rash or abnormal lesions. Normal turgor. Neurologic: Nonfocal. Confused Results & Data Laboratory Results Laboratory Results - last 24 hr 06/20/18 06/20/18 06/20/18 21:06 21:06 23:17 WBC 11.00 H RBC 4.58 Hgb 14.4 Hct 45.3 MCV 98.9 MCH 31.4 MCHC 31.8 L RDW Std Deviation 53.3 H RDW Coeff of [place] 14.6 H Plt Count 165 MPV 11.0 H Immature Gran % (Auto) 0.5 Neut % (Auto) 67.2 Lymph % (Auto) 20.7 [place] % (Auto) 9.5 Eos % (Auto) 1.6 Baso % (Auto) 0.5 Immature Gran # (Auto) 0.05 H Neut # (Auto) 7.39 H Lymph # (Auto) 2.28 [place] # (Auto) 1.05 H Eos # (Auto) 0.18 Baso # (Auto) 0.05 PT 11.3 INR 1.1 APTT 23.9 PTT Ratio 0.9 Sodium 140 Potassium 2.5 L* Chloride 94 L Carbon Dioxide 38 H Anion Gap 9.0 BUN 50 H Creatinine 1.81 H D Est Cr Clr Drug Dosing 28.2 Est GFR ( Amer) 28.8 Est GFR (Non-Af Amer) 24.9 BUN/Creatinine Ratio 27.5 H Glucose 122 H Calcium 9.7 Magnesium 2.4 Total Bilirubin 0.4 AST 21 ALT 19 Alkaline Phosphatase 67 Troponin I < 0.015 Total Protein 7.5 Albumin 3.2 L Globulin 4.3 H Albumin/Globulin Ratio 0.8 L TSH 3.350 Specimen Hemolysis 06/21/18 06/21/18 06/21/18 05:35 05:35 05:35 WBC 10.14 RBC 4.46 Hgb 14.1 Hct 43.2 MCV 96.9 MCH 31.6 MCHC 32.6 RDW Std Deviation 51.2 H RDW Coeff of [place] 14.5 Plt Count 180 MPV 10.9 H Immature Gran % (Auto) 0.4 Neut % (Auto) 67.6 Lymph % (Auto) 21.0 [place] % (Auto) 8.9 Eos % (Auto) 1.7 Baso % (Auto) 0.4 Immature Gran # (Auto) 0.04 H Neut # (Auto) 6.86 H Lymph # (Auto) 2.13 [place] # (Auto) 0.90 H Eos # (Auto) 0.17 Baso # (Auto) 0.04 PT INR APTT PTT Ratio Sodium 142 Potassium 3.0 L D Chloride 98 Carbon Dioxide 37 H Anion Gap 7.0 BUN 47 H Creatinine 1.46 H D Est Cr Clr Drug Dosing 34.4 Est GFR ( Amer) 37.4 Est GFR (Non-Af Amer) 32.3 BUN/Creatinine Ratio 32.4 H Glucose 122 H Calcium 8.9 Magnesium Total Bilirubin AST ALT Alkaline Phosphatase Troponin I < 0.015 Total Protein Albumin Globulin Albumin/Globulin Ratio TSH Specimen Hemolysis (1) A-fib Atrial fibrillation type: paroxysmal Qualified Code(s): I48.0 - Paroxysmal atrial fibrillation
[2018-06-21] MEDS ORDERED: RIVAROXABAN 15 MG TAB PO SCH (16:30)
[2018-06-21] MEDS ORDERED: RIVAROXABAN 20 MG TAB PO SCH (16:30)
[2018-06-21 16:31] LABS: BUN Creatinine Ratio 36.9 (10-20); Blood Urea Nitrogen 45 mg/dl (7-18); Calcium 9.2 mg/dl (8.5-10.1); Carbon Dioxide 36 mmol/L (21-32); Chloride 101 mmol/L (98-107); Creatinine Clr Calc Pharmacy 41.5 ml/min; Est GFR (African American) 46.9; Est GFR (Non-African American) 40.5; Glucose 136 mg/dl (70-99); Potassium 3.3 mmol/L (3.5-5.1); Sodium 142 mmol/L (136-145)
[2018-06-21 16:36] LABS: Troponin I < 0.015 ng/ml (0-0.045)
[2018-06-21] MEDS: DONEPEZIL HCL 10 MG TAB PO SCH (20:48)
[2018-06-21 20:56] LABS: Appearance Urine Clear (Clear); Bilirubin Urine Negative (Negative); Blood Urine Negative (Negative); Color Urine Yellow; Glucose Urine UA Negative (Negative); Ketones Urine Negative (Negative); Leukocyte Esterase Urine Negative (Negative); Nitrite Urine Negative (Negative); Protein Urine Negative (Negative); Urobilinogen Urine Negative (Negative)
[2018-06-22 06:12] LABS: BUN Creatinine Ratio 39.6 (10-20); Calcium 8.7 mg/dl (8.5-10.1); Creatinine Clr Calc Pharmacy 54.6 ml/min; Est GFR (African American) 65.3; Est GFR (Non-African American) 56.4; Magnesium 2.6 mg/dl (1.8-2.4); Potassium 3.2 mmol/L (3.5-5.1)
[2018-06-22] MEDS: ALBUT/IPRATROP 3MG/0.5MG NEB 3 ML VIAL INH PRN (07:14)
[2018-06-22] MEDS: BUDESONIDE 0.5 MG/2 ML VIAL (PULMICORT) INH SCH ×2 (07:15→19:49)
[2018-06-22] MEDS: METOPROLOL SUCC 50MG EXT REL TAB PO SCH (08:25)
[2018-06-22] MEDS: CALCIUM 600MG + VIT D 400 IU TAB PO SCH (08:25)
[2018-06-22] MEDS: dilTIAZem HCL 120 MG CAPCR PO SCH (08:25)
[2018-06-22] MEDS: MEMANTINE HCL 5 MG TAB PO SCH (08:25)
[2018-06-22] MEDS: SERTRALINE HCL 50 MG TABLET PO SCH (08:25)
[2018-06-22] MEDS ORDERED: POTASSIUM CHLORIDE 20 MEQ TABCR PO STA (09:12)
[2018-06-22] MEDS: POTASSIUM CHLORIDE / WTR 10 MEQ/100 ML PLCT IV SCH ×4 (10:03→14:45)
--- NOTE | 2018-06-22 14:11 | Hospitalist Progress Note ---
Date of Service June 22, 2018 Assessment & Plan (1) Acute hypokalemia: Improved today to 3.2 from 2.4 on admission. Is secondary to metalozone but was started daily since 06/14/18 -dc Metolazone permanently -holding lasix and would consider torsemide for better oral absorption and bioavailability-does not need this today as she is not considerably hypervolemic -follow BMP again at 1800 today and in AM -replace today with KCl 40meq IV and KCl 40 meq po -With some ST depressions anterolat leads--> repeat ECG again with anterolateral ST depression likely related to hypokalemia and tachycardia on admission -Home oral potassium chloride dosing regimen can be worked out based on choice of diuretic upon discharge (2) AMBER (acute kidney injury): Creatinine 1.8 on admission and now down to 0.92-AMBER is resolved and was likely secondary to metolazone and loop diuretic combination -Continue to hold diuresis at this time as above -Follow BMP (3) Hypertension: Blood pressures are fairly well-controlled -Continue diltiazem 120 mg daily -Continue Toprol XL 100 mg daily -Holding diuretics as above (4) A-fib: With RVR with rates into the 140s after admission-now rate controlled after one only one extra dose of short acting diltiazem 30 mg on 06/21 Normally rate controlled on usual regimen but tachycardia was likely exacerbated by hypokalemia and dehydration -continue home Toprol XL 100mg daily and dilt 120mg CD daily -follow on tele -continue Xarelto and increase back to usual dose of 20 mg as renal function has improved-creatinine clearance is greater than 50 -consult Cardiology-appreciate consultation (5) Alzheimers disease: With known moderate-severe dementia -No behavioral disturbance noted -Continue donepezil 10 mg at bedtime, Namenda 5 mg daily -Supportive care (6) Congestive heart failure: With presumed chronic diastolic CHF as per previous cardiology notes. Last echocardiogram was many years ago. With chronic lower extremity edema and weight gain of 20 pounds in the last 7 months as per review of the outpatient record. Daughter reports she has essentially stopped responding to p.o. Lasix 80 mg twice daily -It is likely that she has got edema Currently after receiving metolazone, she is improved clinically -Continue to hold diuretics for now we will try and replace potassium -Would recommend starting her on torsemide 20 mg once daily for improved bioavailability with the p.o. route-possibly tomorrow if potassium improved -Daily weights, strict I's and O's, low-sodium diet (7) COPD (chronic obstructive pulmonary disease): Stable -Continue budesonide nebulizer twice daily to substitute for home Pulmicort, albuterol nebulizer as needed (8) Obesity: BMI 49 (9) Chronic respiratory failure with hypoxia: Is on 2 and half liters nasal cannula nightly -Is ordered for here (10) DVT prophylaxis: Xarelto Disposition-remain on telemetry, likely back to personal care in the next 1-2 days PT/OT consults placed Subjective Patient has no complaints today. She denies chest pain or shortness of breath. She is pleasantly confused. Her daughter is at the bedside reports that the patient's legs look the least swollen she seen them in a very long time. Telemetry much improved today with mostly paced rhythm in the 60s-70s, no further rapid atrial fibrillation Review of Systems All systems reviewed & are unremarkable except as noted in HPI & below Physical Exam Vital Signs (Past 24 Hours): Last Vital Signs Temp 36.5 C 06/22/18 10:54 Pulse 65 06/22/18 10:54 Resp 20 06/22/18 10:54 BP 138/83 06/22/18 10:54 Pulse Ox 97 06/22/18 10:54 Constitutional: WD/WN, vitals as above + morbidly obese Eyes: PERRL, conjunctivae normal, anicteric sclerae ENMT: external ear and nose normal, oropharynx normal Neck: trachea midline, no thyromegaly Respiratory: normal respiratory effort, lungs clear to auscultation Cardiovascular: Rate/Rhythm: regular rate and regular rhythm (Paced and regular) Heart Sounds: no murmur Extremities: + edema (Only trace pitting edema with chronic venous stasis changes in the legs bilaterally) Gastrointestinal (Abdomen): normal bowel sounds, soft, nontender, no hepatosplenomegaly Musculoskeletal: Extremities: extremities normal to inspection; no cyanosis and no clubbing Skin: no rashes, warm and dry Neurologic: moves all extremities and awake; no focal motor deficits Psychiatric: Orientation: alert, oriented to person and cooperative; + not oriented to place and + not oriented to time Results & Data Laboratory Results 0306/21/18 06/21/18 Range/Units 05:24 20:25 16:00 Sodium 143 142 (136-145) mmol/L Potassium 3.2 L 3.3 L (3.5-5.1) mmol/L Chloride 103 101 (98-107) mmol/L Carbon Dioxide 35 H 36 H (21-32) mmol/L Anion Gap 5.0 5.0 (3-11) BUN 37 H 45 H (7-18) mg/dl Creatinine 0.92 1.21 H (0.6-1.2) mg/dl Est Cr Clr Drug Dosing 54.6 41.5 ml/min Est GFR ( Amer) 65.3 46.9 Est GFR (Non-Af Amer) 56.4 40.5 BUN/Creatinine Ratio 39.6 H 36.9 H (10-20) Glucose 122 H 136 H (70-99) mg/dl Calcium 8.7 9.2 (8.5-10.1) mg/dl Magnesium 2.6 H (1.8-2.4) mg/dl Troponin I < 0.015 (0-0.045) ng/ml Urine Color Yellow Urine Appearance Clear (Clear) Urine pH 7.0 (4.5-7.5) Ur Specific [place] 1.020 (1.000-1.030) Urine Protein Negative (Negative) Urine Glucose (UA) Negative (Negative) Urine Ketones Negative (Negative) Urine Blood Negative (Negative) Urine Nitrite Negative (Negative) Urine Bilirubin Negative (Negative) Urine Urobilinogen Negative (Negative) Ur Leukocyte Esterase Negative (Negative) (1) Congestive heart failure Heart failure chronicity: chronic Heart failure type: diastolic Qualified Code(s): I50.32 - Chronic diastolic (congestive) heart failure (2) A-fib Atrial fibrillation type: paroxysmal Qualified Code(s): I48.0 - Paroxysmal atrial fibrillation (3) Hypertension Hypertension type: essential hypertension Qualified Code(s): I10 - Essential (primary) hypertension
[2018-06-22] MEDS: RIVAROXABAN 20 MG TAB PO SCH (16:18)
[2018-06-22 18:33] LABS: BUN Creatinine Ratio 29.8 (10-20); Calcium 8.5 mg/dl (8.5-10.1); Creatinine Clr Calc Pharmacy 47.1 ml/min; Est GFR (African American) 54.4
[2018-06-22 18:34] LABS: Potassium 3.9 mmol/L (3.5-5.1)
[2018-06-22] MEDS ORDERED: POTASSIUM CHLORIDE 10 MEQ TABCR PO STA (19:08)
[2018-06-22] MEDS: DONEPEZIL HCL 10 MG TAB PO SCH (21:23)
[2018-06-23 07:07] LABS: BUN Creatinine Ratio 39.5 (10-20); Calcium 8.5 mg/dl (8.5-10.1); Creatinine Clr Calc Pharmacy 67.1 ml/min; Est GFR (African American) 83.7; Est GFR (Non-African American) 72.2; Magnesium 2.7 mg/dl (1.8-2.4); Potassium 3.5 mmol/L (3.5-5.1)
[2018-06-23] MEDS: BUDESONIDE 0.5 MG/2 ML VIAL (PULMICORT) INH SCH ×2 (07:07→19:46)
[2018-06-23] MEDS: TORSEMIDE 20 MG TAB PO SCH (08:40)
[2018-06-23] MEDS: SERTRALINE HCL 50 MG TABLET PO SCH (08:40)
[2018-06-23] MEDS: METOPROLOL SUCC 50MG EXT REL TAB PO SCH (08:40)
[2018-06-23] MEDS: CALCIUM 600MG + VIT D 400 IU TAB PO SCH (08:40)
[2018-06-23] MEDS: MEMANTINE HCL 5 MG TAB PO SCH (08:40)
[2018-06-23] MEDS: POTASSIUM CHLORIDE 20 MEQ TABCR PO SCH (08:40)
[2018-06-23] MEDS: dilTIAZem HCL 120 MG CAPCR PO SCH (08:40)
[2018-06-23] MEDS: POLYETHYLENE (MIRALAX) 17 GM PACK PO SCH (08:40)
[2018-06-23] MEDS: SENNA 8.6 MG TAB PO SCH (09:21)
[2018-06-23] MEDS: RIVAROXABAN 20 MG TAB PO SCH (17:23)
--- NOTE | 2018-06-23 18:25 | Hospitalist Progress Note ---
Date of Service June 23, 2018 Assessment & Plan (1) Acute hypokalemia: resolved 2nd to recent diuretic usage at home bmp in am for stability (2) Chronic diastolic (congestive) heart failure: compensated resumed on oral diuretic therapy (torsemide) today (3) Status cardiac pacemaker: no issues (4) Morbid obesity: BMI 49 (5) Alzheimers disease: will have to check with family to see if patient is at baseline (6) Hypertension: controlled (7) COPD (chronic obstructive pulmonary disease): no exacerbation at this time (8) AMBER (acute kidney injury): resolved BMP in am for stability (9) DVT prophylaxis: xarelto daily PT,OT recommending 06/11 care will update family Subjective no issues per staff pleasantly confused tele stable overnight patient asks the same questions over and over unable to obtain accurate ROS due to dementia Review of Systems Unobtainable due to cognitive status Physical Exam Vital Signs (Past 24 Hours): Last Vital Signs Temp 36.4 C L 06/23/18 15:39 Pulse 60 06/23/18 15:39 Resp 23 06/23/18 15:39 BP 139/78 06/23/18 15:39 Pulse Ox 92 06/23/18 15:39 Constitutional: + morbidly obese and + altered mental status (baseline? from dementia...); no acute distress and not ill appearing ENMT: external ear and nose normal, oropharynx normal Respiratory: normal respiratory effort, lungs clear to auscultation Cardiovascular: Rate/Rhythm: regular rate; + abnormal rhythm (irregular) Heart Sounds: normal S1 and normal S2; no murmur Vessels: posterior tibial pulses present and dorsalis pedis pulses present; no JVD Extremities: + edema (trace b/l) Gastrointestinal (Abdomen): normal bowel sounds, soft, nontender, no hepatosplenomegaly Skin: venous stasis changes b/l legs Psychiatric: Orientation: alert; + not oriented x 3 (oriented only to person) Results & Data Laboratory Results Laboratory Results - last 24 hr 06/22/18 06/23/18 06/23/18 17:58 05:40 16:24 Sodium 140 141 Potassium 3.9 D 3.5 Chloride 103 104 Carbon Dioxide 34 H 33 H Anion Gap 3.0 4.0 BUN 32 H 30 H Creatinine 1.07 0.75 D Est Cr Clr Drug Dosing 47.1 67.1 Est GFR ( Amer) 54.4 83.7 Est GFR (Non-Af Amer) 47.0 72.2 BUN/Creatinine Ratio 29.8 H 39.5 H Glucose 106 H 116 H POC Glucose 122 H Calcium 8.5 8.5 Magnesium 2.7 H (1) Hypertension Hypertension type: essential hypertension Qualified Code(s): I10 - Essential (primary) hypertension
[2018-06-23] MEDS: DONEPEZIL HCL 10 MG TAB PO SCH (20:45)
[2018-06-24] MEDS: ALBUT/IPRATROP 3MG/0.5MG NEB 3 ML VIAL INH PRN (07:04)
[2018-06-24] MEDS: BUDESONIDE 0.5 MG/2 ML VIAL (PULMICORT) INH SCH (07:04)
[2018-06-24 07:44] LABS: Calcium 8.7 mg/dl (8.5-10.1); Creatinine Clr Calc Pharmacy 56.5 ml/min; Est GFR (Non-African American) 58.7; Potassium 3.3 mmol/L (3.5-5.1)
[2018-06-24] MEDS ORDERED: POTASSIUM CHLORIDE 10 MEQ TABCR PO STA (08:11)
[2018-06-24] MEDS: POLYETHYLENE (MIRALAX) 17 GM PACK PO SCH (08:50)
[2018-06-24] MEDS: METOPROLOL SUCC 50MG EXT REL TAB PO SCH (08:50)
[2018-06-24] MEDS: MEMANTINE HCL 5 MG TAB PO SCH (08:50)
[2018-06-24] MEDS: CALCIUM 600MG + VIT D 400 IU TAB PO SCH (08:50)
[2018-06-24] MEDS: SENNA 8.6 MG TAB PO SCH (08:50)
[2018-06-24] MEDS: POTASSIUM CHLORIDE 20 MEQ TABCR PO SCH (08:51)
[2018-06-24] MEDS: dilTIAZem HCL 120 MG CAPCR PO SCH (08:51)
[2018-06-24] MEDS: TORSEMIDE 20 MG TAB PO SCH ×2 (08:51→16:43)
[2018-06-24] MEDS: SERTRALINE HCL 50 MG TABLET PO SCH (08:51)
[2018-06-24] MEDS: RIVAROXABAN 20 MG TAB PO SCH (15:52)
--- NOTE | 2018-07-01 07:50 | Discharge Summary ---
Date of Service date of admission - June 20, 2018 date of discharge - June 24, 2018 Admission HPI Per Admitting Provider Ms. Stover is an 88-year-old female with a history of chronic diastolic heart failure, hypertension, chronic leg edema, dementia, hyperlipidemia, COPD, and atrial fibrillation who presents to the emergency department due to a potassium level of 2.3. She denies any complaints today, and states that she does not have chest pain, palpitations, shortness of breath. She was started on metolazone by her PCP on June 14, 2018 due to persistent shortness of breath, weight gain and lower extremity swelling. She had a follow-up BMP drawn this morning which showed a potassium level of 2.4; she was then referred to the emergency department for further evaluation. The patient and her daughter state that Ms. Stover's legs appear much better after starting the metolazone. They have no other complaints at this time. Of note, Ms. Stover resides at [facility]. Principal Diagnosis hypokalemia Discharge Exam Constitutional + morbidly obese and + altered mental status (2nd to dementia); no acute distress and not ill appearing ENMT external ear and nose normal, oropharynx normal Respiratory normal respiratory effort, lungs clear to auscultation Cardiovascular Rate/Rhythm: regular rate; + abnormal rhythm (irregular) Heart Sounds: normal S1 and normal S2; no murmur Vessels: posterior tibial pulses present and dorsalis pedis pulses present; no JVD Extremities: + edema (trace b/l) Gastrointestinal (Abdomen) normal bowel sounds, soft, nontender, no hepatosplenomegaly Psychiatric Orientation: alert; + not oriented x 3 (oriented only to person) Discharge Data Allergies Allergy/AdvReac Type Severity Reaction Status Date / Time No Known Allergies Allergy Verified 06/20/18 21:23 Consultations [facility] PT, OT Hospital Course (1) Acute hypokalemia: potassium level at discharge was 3.3. the severe hypokalemia was 2nd to recent diuretic usage at home - namely metazolone. her potassium supplement at discharge was 20meq BID. she will need a repeat potassium level in 3-4 days post-discharge to ensure stability. (2) Chronic diastolic (congestive) heart failure: She remained compensated from a CHF standpoint the entire stay. Her diuretic was held initially (she may have been mildly volume contracted early on in her stay) but it was resumed on day of discharge. (3) Status cardiac pacemaker: no issues while here (4) Morbid obesity: BMI 49 (5) Alzheimers disease: mental status appeared to be at baseline while hospitalized. (6) Hypertension: controlled during the stay. (7) COPD (chronic obstructive pulmonary disease): no exacerbation while here. (8) AMBER (acute kidney injury): creatinine at admission was 1.8, improving to 0.89 at discharge. likely due to overdiuresis prior to admission. (9) A-fib: remains on xarelto for anticoagulation and metoprolol xl with cardizem for chronic rate control. no issues while hospitalized. (10) Physical deconditioning: seen by PT, OT. there was some concern she may have needed SNF placement after discharge. discussions were held with [facility] and they felt they could continue to adequately address her needs. the patient returned to [facility] at discharge. Total Time Total Time Spent Total Time Spent (In Minutes): 45 Total Time Includes: Examination of the Patient, Discharge Planning and Medication Reconciliation Discharge Plan Discharge Items Patient Disposition: Personal Skilled Nursing Reason For Visit: HYPOKALEMIA Discharge Diagnosis: Hypokalemia (low potassium) Condition: Good Discharge Goals: Diagnostic testing and Therapeutic intervention Activity: Resume your previous activity Non-emergency contact: Primary Care Provider and Chief Nurse Call non-emergency contact if: you have any medication questions and your temperature is above 100.5 Follow-up/Referrals: Kiara Lewis MD [Primary Care Provider] - 06/27/18 10:20 am (Please, follow up with Dr. Lewis on June 27 at 10:20 am. *If you need to changet this appointment, call the office at [phone].) Minna Shah PA-C [Physician [facility]] - 07/01/18 4:00 pm (Please, follow up at [facility] Office with Minna Shah PA-C on SundayJuly 01 at 4:00 pm. *This office is located in [address] of [facility] - big building next to this [facility]. If you need to change this appointment, call the office at [phone].) Diet: Heart Healthy Fluids: 1800ml (7 cups) Addtl Provider Instructions: From Jorden Major -Hospitalist: Congestive Heart Failure instructions: Call your Primary Care doctor or shake out worker if any of the following symptoms or problems start or get worse: * Shortness of breath or difficulty breathing * Wake up at night short of breath * Chest pain * Cough * Swelling of your hands, feet, or legs * More fatigued or tired with your normal activity * Palpitations - sudden fast heart beats WEIGHT * Weigh yourself every morning after using the bathroom. * Use the same scale. * Wear the same amount of clothing. * Write your weight down on a chart. * Call your Primary Care doctor or Cardiologst if you gain more than 2-3 pounds in 1-2 days. MEDICATIONS * Use this discharge instruction sheet for medication instructions. * Take your medications at the time your doctor ordered. * Do not skip a dose of your medicines. * If you miss a dose of medicine, take it as soon as possible, but DO NOT DOUBLE A DOSE. * Read your medicine information when you get home. * Know all of the side effects of your medicine. If in doubt, ask your pharmacist * Call your Primary Care doctor's office if you have any side effects. * Be sure all of your doctors know what medicine and herbs you take (including cold, flu, and herbal medicine). Take the following with you to your follow-up doctor appointments: * Weight Chart * Medication List * List of questions Do not drink excessive alcohol, beer or wine. FOLLOW UP WITH [facility] WITHIN 7 DAYS. [phone]. BRING DAILY WEIGHT LOG AND MEDICATIONS TO APPT. Other instructions - 1. check daily weights every morning on same standing scale. 2. please notify shake out worker or primary care doctor of any weight gain of more than 3 pounds in 1-2 days. 3. recheck BMP (basic metabolic panel) on 06/27/18 (morning, please). Results to her family doctor and shake out worker. 4. stop lasix 5. stop metazolone 6. new diuretic -- torsemide 20mg twice a day 7. potassium supplement twice a day Return to [facility] [place] if - * severe shortness of breath * chest pain * fever over 100.5 degrees * any other concerns Prescriptions: New torsemide 20 mg Tablet 20 mg PO BID Qty: 60 RF: 1 Continued ipratropium-albuterol 0.5 mg-3 mg(2.5 mg base)/3 mL Solution For Nebulization 3 ml INHALATION Q6 PRN (Reason: Shortness Of Breath Or Wheezing) RF: 0 loperamide 2 mg Capsule 2 mg PO UD PRN (Reason: Diarrhea) RF: 0 polyethylene glycol 3350 [Miralax] 17 gram Powder In Packet 17 g PO DAILY PRN (Reason: Constipation) RF: 0 donepezil [Aricept] 10 mg tablet 10 mg PO HS RF: 0 metoprolol succinate [Toprol XL] 100 mg tablet extended release 24 hr 100 mg PO DAILY RF: 0 acetaminophen [Tylenol Extra Strength] 500 mg Tablet 500 mg PO Q4 PRN (Reason: Fever Or Pain) RF: 0 diphenhydramine HCl [Banophen] 25 mg Tablet 25 mg PO Q6 PRN (Reason: itch/rash) RF: 0 budesonide [Pulmicort] 0.5 mg/2 mL suspension for nebulization 1 vial Inhalation BID RF: 0 diltiazem HCl [Cardizem CD] 120 mg capsule,extended release 24hr 120 mg PO DAILY RF: 0 nystatin 100,000 unit/gram Powder 1 applic TOPICAL TID PRN (Reason: Unknown) RF: 0 sertraline [Zoloft] 50 mg tablet 50 mg PO DAILY RF: 0 memantine [Namenda] 5 mg tablet 5 mg PO DAILY RF: 0 Xarelto 20 mg tablet 20 mg PO DAILY RF: 0 Breo Ellipta 200-25 mcg/dose blister with device 1 puff Inhalation DAILY RF: 0 Oyster Shell Calcium-Vit D3 500 mg(1,250mg) -200 unit Powder In Packet 1 tab PO DAILY RF: 0 lorazepam 0.5 mg Tablet 0.5 mg PO UD PRN (Reason: prior to transport) Qty: 15 RF: 0 Changed potassium chloride [Klor-Con M20] 20 mEq tablet,ER particles/crystals 20 meq PO BID Qty: 60 RF: 1 Discontinued metolazone 5 mg tablet 5 mg PO 3XWK RF: 0 furosemide [Lasix] 80 mg tablet 80 mg PO BID RF: 0 Stand-Alone Forms: [facility], Work/School Release (Inpt) Discharge Orders: Discharge Order (Routine); Ordered 06/24/18 Ordered By: Jorden Major Admission Data Admit Date/Time: 06/21/18 10:31 Attending Provider: Jorden Major Admit Provider: Helena Priest Primary Care Provider: Kiara Lewis Other Providers: Nabor Jaramillo Service: Telemetry Other Interventions: Discharge Summary Assessment (RN) Last Done: 06/24/18 16:27 Pending Studies at Discharge: No DC Date/Time DO NOT enter until pt leaves facility: 06/24/18 17:13
== END 2018-06-24 17:13 | disposition home or self-care (01) | DRG 641 ==
LOC: 2S 19:42 → ED 19:42 → SUATTDRO 22:51 → 2S 23:29 → SUATTDRO 06-21 10:31 → 2S 06-22 20:25
DX: I48.91 Unspecified atrial fibrillation; Z99.81 Dependence on supplemental oxygen; E66.01 Morbid (severe) obesity due to excess calories; J44.9 Chronic obstructive pulmonary disease, unspecified; Z79.51 Long term (current) use of inhaled steroids; N17.9 Acute kidney failure, unspecified; F32.9 Major depressive disorder, single episode, unspecified; I11.0 Hypertensive heart disease with heart failure; E87.6 Hypokalemia; J96.11 Chronic respiratory failure with hypoxia; Z95.0 Presence of cardiac pacemaker; G30.9 Alzheimer's disease, unspecified; Z68.42 Body mass index [BMI] 45.0-49.9, adult; T50.2X5A Adverse effect of carbonic-anhydrase inhibitors, benzothiadiazides and other diuretics, initial encounter; I50.32 Chronic diastolic (congestive) heart failure; Z79.899 Other long term (current) drug therapy; F02.80 Dementia in other diseases classified elsewhere, unspecified severity, without behavioral disturbance, psychotic disturbance, mood disturbance, and anxiety; R60.0 Localized edema; Z79.01 Long term (current) use of anticoagulants

== ENCOUNTER 2018-11-10 11:48 | Inpatient (IN) ==
[2018-11-10] MEDS ORDERED: LORazepam 0.5 MG/1 ML VIAL IV STA (12:19)
[2018-11-10] MEDS ORDERED: ALBUT/IPRATROP 3MG/0.5MG NEB 3 ML VIAL NEB STA (12:19)
--- NOTE | 2018-11-10 12:38 | Emergency Department Note ---
Entered by Tori Rey acting as a scribe for Arie Bach MD History of Present Illness General Chief complaint: Altered Mental Status Time Seen by Provider: 11/10/18 12:11 Source: other (Nurse) Mode of arrival: EMS History of Present Illness Onset (ago): day(s) (a few days ago) Location: head (Altered mental status) Pain Consistency: + other (Worsening) Quality: + other (Altered mental status) Exacerbated By: + movement Associated symptoms: + confusion, + shortness of breath and + other (Anxious, worsening dementia); no chest pain Treatments prior to arrival: other (2L supplemental oxygen via nasal cannula) The patient is an 88 year old female presenting to the Emergency Department via EMS complaining of worsening Altered Mental Status staring a few days ago. The nurse reports that the patient has dementia and that it has worsened over the last few days. She states that the patient is short of breath and that this worsens upon exertion. She explains that the patient becomes very anxious when aroused. She notes that the patient does not usually use supplemental oxygen but received 2L via nasal cannula DIRECTOR OF NEUROLOGY from EMS. She adds that the patient is a resident at [facility]. The nurse reports that the patient regularly takes Xarelto. She states that DIRECTOR OF NEUROLOGY the patient denied chest pain. She adds that the patient has a DNR. The HPI and ROS are limited secondary to dementia. Home Medications Home Medications Medication Instructions Recorded Confirmed Type Star Stokes 1 puff INHALATION DAILY 06/20/18 11/10/18 History Oyster Shell Calcium-Vit D3 1 tab PO DAILY 06/20/18 11/10/18 History Xarelto 20 mg PO DAILY 06/20/18 11/10/18 History acetaminophen [Tylenol Extra 500 mg PO Q4 PRN 06/20/18 11/10/18 History Strength] budesonide [Pulmicort] 1 vial INHALATION BID 06/20/18 11/10/18 History diltiazem HCl [Cardizem CD] 120 mg PO DAILY 06/20/18 11/10/18 History diphenhydramine HCl [Banophen] 25 mg PO Q6 PRN 06/20/18 11/10/18 History donepezil [Aricept] 10 mg PO HS 06/20/18 11/10/18 History ipratropium-albuterol 3 ml INHALATION Q6 PRN 06/20/18 11/10/18 History loperamide 2 mg PO UD PRN 06/20/18 11/10/18 History memantine [Namenda] 5 mg PO DAILY 06/20/18 11/10/18 History metoprolol succinate [Toprol XL] 150 mg PO DAILY 06/20/18 11/10/18 History nystatin 1 applic TOPICAL TID PRN 06/20/18 11/10/18 History polyethylene glycol 3350 [Miralax] 17 g PO DAILY PRN 06/20/18 11/10/18 History sertraline [Zoloft] 50 mg PO DAILY 06/20/18 11/10/18 History lorazepam 0.5 mg PO UD PRN #15 tab 06/24/18 11/10/18 Rx potassium chloride [Klor-Con M20] 20 meq PO BID #60 tab 06/24/18 11/10/18 Rx inhalational spacing device #1 ea 10/24/18 11/10/18 History spironolactone 25 mg tablet 25 mg PO .Take 1 tablet daily #90 10/24/18 11/10/18 History tab wheelchair #1 ea 11/07/18 11/10/18 Rx metolazone 2.5 mg PO DAILY PRN 11/10/18 11/10/18 History torsemide 60 mg PO BID 11/10/18 11/10/18 History Allergies Allergy/AdvReac Type Severity Reaction Status Date / Time No Known Allergies Allergy Verified 11/10/18 13:04 Past Med/Surg History Medical History Urinary incontinence Tachycardia Symptomatic bradycardia Situational anxiety Pulmonary emphysema Mental status change resolved 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 Hypokalemia Edema Diastolic dysfunction Diastolic congestive heart failure Depression Dementia, in, senility Cardiac pacemaker AF (paroxysmal atrial fibrillation) Apnea, sleep Hypertension A-fib High cholesterol Alzheimers disease Asthma Heart disease Surgical History History of eye surgery Social History Preferred Language: Tamazight Communication Ability: Impaired Squirrel Man Required: No Beliefs That Will Affect Care: None Current Living Situation: [facility] Current Living Situation Comment: [facility] Other Information That Helps Us Care for You: No Feels Safe at Home: Yes Safety Concerns: Feels Safe At This Time Smoking Status: Smoker, status unknown Hx Alcohol Use: No Hx Substance Use: No Review of Systems The HPI and ROS are limited secondary to dementia. Physical Exam Vital Signs Vital Signs - 24 hr 11/10/18 11:39 11/10/18 12:05 11/10/18 12:15 Temperature 37.2 C Temperature Source Oral Sepsis Recent Fever Within 48 Hours Yes Sepsis New/Unexplained Change in Mental Status No Sepsis Action Taken by Nursing Physician Notified Oxygen Flow Rate - Titration 2 Pulse Oximetry Post Tiitration 99 Pulse Rate 67 64 65 Pulse Rate [Apical] Pulse Rate from SpO2 Sensor 64 63 Pulse Rhythm Regular Pulse Strength Normal Respiratory Rate 26 H 23 27 H Respiratory Effort / Characteristics Spontaneous SOB on Exertion Respiratory Depth Shallow Respiratory Pattern Tachypnea Blood Pressure 141/71 H 128/74 Blood Pressure Mean 94 92 Blood Pressure Position Lying Pulse Oximetry 88 L 100 100 Oxygen Delivery Method Oxymask Nasal Cannula Nasal Cannula Oxygen Flow Rate 0 2 2 11/10/18 12:19 11/10/18 12:20 11/10/18 12:30 Temperature Temperature Source Sepsis Recent Fever Within 48 Hours Sepsis New/Unexplained Change in Mental Status Sepsis Action Taken by Nursing Oxygen Flow Rate - Titration 2 Pulse Oximetry Post Tiitration 99 Pulse Rate 64 65 Pulse Rate [Apical] Pulse Rate from SpO2 Sensor 65 65 Pulse Rhythm Pulse Strength Respiratory Rate 24 27 H Respiratory Effort / Characteristics Respiratory Depth Respiratory Pattern Blood Pressure Blood Pressure Mean Blood Pressure Position Pulse Oximetry 98 100 99 Oxygen Delivery Method Room Air Nasal Cannula Nasal Cannula Oxygen Flow Rate 2 2 11/10/18 12:40 11/10/18 12:42 11/10/18 12:50 Temperature Temperature Source Sepsis Recent Fever Within 48 Hours Sepsis New/Unexplained Change in Mental Status Sepsis Action Taken by Nursing Oxygen Flow Rate - Titration Pulse Oximetry Post Tiitration Pulse Rate 68 74 Pulse Rate [Apical] 69 Pulse Rate from SpO2 Sensor 67 63 Pulse Rhythm Pulse Strength Respiratory Rate 33 H 22 24 Respiratory Effort / Characteristics Spontaneous Respiratory Depth Respiratory Pattern Blood Pressure Blood Pressure Mean Blood Pressure Position Pulse Oximetry 99 96 95 Oxygen Delivery Method Nasal Cannula Oxymask Nasal Cannula Oxygen Flow Rate 2 2 2 11/10/18 13:00 11/10/18 13:10 11/10/18 13:20 Temperature Temperature Source Sepsis Recent Fever Within 48 Hours Sepsis New/Unexplained Change in Mental Status Sepsis Action Taken by Nursing Oxygen Flow Rate - Titration Pulse Oximetry Post Tiitration Pulse Rate 73 88 73 Pulse Rate [Apical] Pulse Rate from SpO2 Sensor 75 76 72 Pulse Rhythm Pulse Strength Respiratory Rate 40 H 31 H 29 H Respiratory Effort / Characteristics Respiratory Depth Respiratory Pattern Blood Pressure Blood Pressure Mean Blood Pressure Position Pulse Oximetry 92 95 98 Oxygen Delivery Method Nasal Cannula Nasal Cannula Nasal Cannula Oxygen Flow Rate 2 2 2 11/10/18 13:30 11/10/18 13:40 11/10/18 13:50 Temperature Temperature Source Sepsis Recent Fever Within 48 Hours Sepsis New/Unexplained Change in Mental Status Sepsis Action Taken by Nursing Oxygen Flow Rate - Titration Pulse Oximetry Post Tiitration Pulse Rate 73 76 70 Pulse Rate [Apical] Pulse Rate from SpO2 Sensor 71 70 69 Pulse Rhythm Pulse Strength Respiratory Rate 32 H 39 H 40 H Respiratory Effort / Characteristics Respiratory Depth Respiratory Pattern Blood Pressure Blood Pressure Mean Blood Pressure Position Pulse Oximetry 93 91 95 Oxygen Delivery Method Nasal Cannula Nasal Cannula Oxygen Flow Rate 2 2 2 11/10/18 14:00 11/10/18 14:33 11/10/18 14:57 Temperature Temperature Source Sepsis Recent Fever Within 48 Hours Sepsis New/Unexplained Change in Mental Status Sepsis Action Taken by Nursing Oxygen Flow Rate - Titration Pulse Oximetry Post Tiitration Pulse Rate 99 H 71 73 Pulse Rate [Apical] Pulse Rate from SpO2 Sensor 71 75 Pulse Rhythm Pulse Strength Respiratory Rate 31 H 21 31 H Respiratory Effort / Characteristics Respiratory Depth Respiratory Pattern Blood Pressure 169/136 H Blood Pressure Mean 147 Blood Pressure Position Pulse Oximetry 94 96 Oxygen Delivery Method Nasal Cannula Nasal Cannula Oxygen Flow Rate 2 2 2 11/10/18 15:00 11/10/18 15:01 11/10/18 15:30 Temperature Temperature Source Sepsis Recent Fever Within 48 Hours Sepsis New/Unexplained Change in Mental Status Sepsis Action Taken by Nursing Oxygen Flow Rate - Titration Pulse Oximetry Post Tiitration Pulse Rate 75 74 71 Pulse Rate [Apical] Pulse Rate from SpO2 Sensor 76 71 Pulse Rhythm Pulse Strength Respiratory Rate 30 H 32 H 31 H Respiratory Effort / Characteristics Respiratory Depth Respiratory Pattern Blood Pressure 113/58 L Blood Pressure Mean 76 Blood Pressure Position Pulse Oximetry 93 96 Oxygen Delivery Method Nasal Cannula Nasal Cannula Oxygen Flow Rate 2 2 2 11/10/18 15:31 11/10/18 16:00 11/10/18 16:01 Temperature Temperature Source Sepsis Recent Fever Within 48 Hours Sepsis New/Unexplained Change in Mental Status Sepsis Action Taken by Nursing Oxygen Flow Rate - Titration Pulse Oximetry Post Tiitration Pulse Rate 72 69 71 Pulse Rate [Apical] Pulse Rate from SpO2 Sensor 72 70 70 Pulse Rhythm Pulse Strength Respiratory Rate 30 H 32 H 30 H Respiratory Effort / Characteristics Respiratory Depth Respiratory Pattern Blood Pressure 102/77 Blood Pressure Mean 76 85 Blood Pressure Position Pulse Oximetry 97 97 96 Oxygen Delivery Method Nasal Cannula Nasal Cannula Nasal Cannula Oxygen Flow Rate 2 2 2 11/10/18 16:30 Temperature Temperature Source Sepsis Recent Fever Within 48 Hours Sepsis New/Unexplained Change in Mental Status Sepsis Action Taken by Nursing Oxygen Flow Rate - Titration Pulse Oximetry Post Tiitration Pulse Rate 70 Pulse Rate [Apical] Pulse Rate from SpO2 Sensor 69 Pulse Rhythm Pulse Strength Respiratory Rate 31 H Respiratory Effort / Characteristics Respiratory Depth Respiratory Pattern Blood Pressure 112/64 Blood Pressure Mean 80 Blood Pressure Position Pulse Oximetry 95 Oxygen Delivery Method Nasal Cannula Oxygen Flow Rate 2 GENERAL: Patient is in mild distress, seems anxious. HEENT: No acute trauma, normocephalic atraumatic, mucous membranes moist, no nasal congestion, no scleral icterus. NECK: No stridor, no adenopathy, no meningismus, trachea is midline. LUNGS: Clear to auscultation bilaterally, no wheeze, no rhonchi, breath sounds equal. HEART: Without murmurs gallops or rubs, regular rate and rhythm. ABDOMEN: Soft, nontender, bowel sounds positive, no hernias, no peritonitis. EXTREMITIES: No cyanosis. Full range of motion of all the joints without pain or difficulty, no signs for acute trauma. Mild bilateral pedal edema. NEUROLOGIC: Some confusion noted. Moving all extremities. Answers simple questions yes or no. No speech slur. SKIN: No rash, no jaundice, no diaphoresis. Course 1213: The patient was evaluated in room B4B, and a complete history and physical examination were performed. 1534: I updated the patient and her daughter at this time. 1555: I discussed the patients case with Dr. Nathalia HARVEY hospitalist. She will evaluate the patient for further management. Consultations Consultation #1: I discussed the patients case with Dr. Nathalia HARVEY hospitalist. She will evaluate the patient for further management. Time: 15:55 Administered Medications Discontinued Medications Albuterol (Duoneb) 3 ml NEB NOW STA Stop: 11/10/18 12:20 Last Admin: 11/10/18 12:37 Dose: 3 ml Documented by: [id number] Furosemide (Lasix) Confirm Administered Dose 80 mg IV .STK-MED ONE Stop: 11/10/18 14:36 Last Admin: 11/10/18 15:04 Dose: Not Given Documented by: [id number] Lorazepam (Ativan) 0.5 mg in 1 mls @ 1 mls/min IV NOW STA Stop: 11/10/18 12:20 Last Admin: 11/10/18 12:45 Dose: 1 mls/min Documented by: [id number] Furosemide 60 mg/ Syringe 6 mls @ 4 mls/min IV NOW STA Stop: 11/10/18 13:07 Last Admin: 11/10/18 14:55 Dose: 4 mls/min Documented by: [id number] Medical Decision Making Differential Diagnosis Differential diagnoses include dehydration, hypoxia, CHF, electrolyte imbalance anemia, UTI, stroke, intracranial bleeding, medication reaction, renal or liver failure amongst others. Medical Records Attestation: I reviewed the patient's medical records. Home Medications Current Medication List: was personally reviewed by me Laboratory Data Attestation: I reviewed the patient's lab results. Result diagrams: 11/10/18 13:29 11/10/18 13:29 Lab Results 11/10/18 11/10/18 11/10/18 Range/Units 13:29 13:29 13:29 WBC 10.08 (4.8-10.8) K/uL RBC 3.97 L (4.2-5.4) M/uL Hgb 12.5 (12.0-16.0) g/dL Hct 39.6 (37-47) % MCV 99.7 (80-100) fL MCH 31.5 (25-34) pg MCHC 31.6 L (32-36) g/dL RDW Std Deviation 53.7 H (36.4-46.3) fL RDW Coeff of Kerry 14.6 H (11.5-14.5) % Plt Count 179 (130-400) K/uL MPV 10.6 H (7.4-10.4) fL Immature Gran % (Auto) 0.8 % Neut % (Auto) 72.8 % Lymph % (Auto) 14.1 % Spencer % (Auto) 10.2 % Eos % (Auto) 1.7 % Baso % (Auto) 0.4 % Immature Gran # (Auto) 0.08 H (0.00-0.02) K/uL Neut # (Auto) 7.34 H (1.4-6.5) K/uL Lymph # (Auto) 1.42 (1.2-3.4) K/uL Spencer # (Auto) 1.03 H (0.11-0.59) K/uL Eos # (Auto) 0.17 (0-0.5) K/uL Baso # (Auto) 0.04 (0-0.2) K/uL PT 14.7 H (9.0-12.0) Seconds INR 1.5 H (0.9-1.1) APTT 34.5 H (21.0-31.0) Seconds PTT Ratio 1.3 ABG pH (7.35-7.45) ABG pCO2 (35-46) mmHg ABG pO2 (80-95) mm/Hg ABG HCO3 (19-24) mmol/L ABG O2 Saturation (90-95) % ABG Base Excess (-9-1.8) mEq/L [place] Test (Pos) Barometric Pressure mm/Hg Oxygen Given Sodium 142 (136-145) mmol/L Potassium 4.4 (3.5-5.1) mmol/L Chloride 102 (98-107) mmol/L Carbon Dioxide 37 H (21-32) mmol/L Anion Gap 3.0 (3-11) BUN 21 H (7-18) mg/dl Creatinine 1.15 (0.6-1.2) mg/dl Est Cr Clr Drug Dosing 45.9 ml/min Est GFR ( Amer) 49.9 Est GFR (Non-Af Amer) 43.0 BUN/Creatinine Ratio 17.9 (10-20) Glucose 102 H (70-99) mg/dl Lactate (0.4-2.0) mmol/L Calcium 9.1 (8.5-10.1) mg/dl Magnesium 2.7 H (1.8-2.4) mg/dl Total Bilirubin 0.6 (0.2-1) mg/dl AST 23 (15-37) U/L ALT 18 (12-78) U/L Alkaline Phosphatase 66 (45-117) U/L Troponin I < 0.015 (0-0.045) ng/ml NT-Pro-B Natriuret Pep 784 (0-1800) pg/ml Total Protein 7.7 (6.4-8.2) gm/dl Albumin 3.1 L (3.4-5.0) gm/dl Globulin 4.6 H (2.5-4.0) gm/dl Albumin/Globulin Ratio 0.7 L (0.9-2) TSH 2.790 (0.300-4.500) uIu/ml Urine Color Urine Appearance (Clear) Urine pH (4.5-7.5) Ur Specific [place] (1.000-1.030) Urine Protein (Negative) Urine Glucose (UA) (Negative) Urine Ketones (Negative) Urine Blood (Negative) Urine Nitrite (Negative) Urine Bilirubin (Negative) Urine Urobilinogen (Negative) Ur Leukocyte Esterase (Negative) Urine WBC (Auto) (0-5) /hpf Urine RBC (Auto) (0-4) /hpf U Hyaline Cast (Auto) (0-5) /lpf U Epithel Cells (Auto) (0-5) /lpf Urine Bacteria (Auto) (Negative) 11/10/18 11/10/18 11/10/18 Range/Units 13:29 14:05 14:50 WBC (4.8-10.8) K/uL RBC (4.2-5.4) M/uL Hgb (12.0-16.0) g/dL Hct (37-47) % MCV (80-100) fL MCH (25-34) pg MCHC (32-36) g/dL RDW Std Deviation (36.4-46.3) fL RDW Coeff of Kerry (11.5-14.5) % Plt Count (130-400) K/uL MPV (7.4-10.4) fL Immature Gran % (Auto) % Neut % (Auto) % Lymph % (Auto) % Spencer % (Auto) % Eos % (Auto) % Baso % (Auto) % Immature Gran # (Auto) (0.00-0.02) K/uL Neut # (Auto) (1.4-6.5) K/uL Lymph # (Auto) (1.2-3.4) K/uL Spencer # (Auto) (0.11-0.59) K/uL Eos # (Auto) (0-0.5) K/uL Baso # (Auto) (0-0.2) K/uL PT (9.0-12.0) Seconds INR (0.9-1.1) APTT (21.0-31.0) Seconds PTT Ratio ABG pH 7.51 H* (7.35-7.45) ABG pCO2 38 (35-46) mmHg ABG pO2 166 H (80-95) mm/Hg ABG HCO3 29 H (19-24) mmol/L ABG O2 Saturation 99.4 H (90-95) % ABG Base Excess 6.1 H (-9-1.8) mEq/L [place] Test Pos (Pos) Barometric Pressure 734.5 mm/Hg Oxygen Given 2L Sodium (136-145) mmol/L Potassium (3.5-5.1) mmol/L Chloride (98-107) mmol/L Carbon Dioxide (21-32) mmol/L Anion Gap (3-11) BUN (7-18) mg/dl Creatinine (0.6-1.2) mg/dl Est Cr Clr Drug Dosing ml/min Est GFR ( Amer) Est GFR (Non-Af Amer) BUN/Creatinine Ratio (10-20) Glucose (70-99) mg/dl Lactate 1.3 (0.4-2.0) mmol/L Calcium (8.5-10.1) mg/dl Magnesium (1.8-2.4) mg/dl Total Bilirubin (0.2-1) mg/dl AST (15-37) U/L ALT (12-78) U/L Alkaline Phosphatase (45-117) U/L Troponin I (0-0.045) ng/ml NT-Pro-B Natriuret Pep (0-1800) pg/ml Total Protein (6.4-8.2) gm/dl Albumin (3.4-5.0) gm/dl Globulin (2.5-4.0) gm/dl Albumin/Globulin Ratio (0.9-2) TSH (0.300-4.500) uIu/ml Urine Color Yellow Urine Appearance Clear (Clear) Urine pH 8.0 H (4.5-7.5) Ur Specific [place] 1.014 (1.000-1.030) Urine Protein Negative (Negative) Urine Glucose (UA) Negative (Negative) Urine Ketones Negative (Negative) Urine Blood Trace H (Negative) Urine Nitrite Negative (Negative) Urine Bilirubin Negative (Negative) Urine Urobilinogen Negative (Negative) Ur Leukocyte Esterase Negative (Negative) Urine WBC (Auto) 0 (0-5) /hpf Urine RBC (Auto) 5-10 H (0-4) /hpf U Hyaline Cast (Auto) 0 (0-5) /lpf U Epithel Cells (Auto) 10-20 H (0-5) /lpf Urine Bacteria (Auto) Negative (Negative) Imaging Data Radiologist's Impression: Radiology results as stated below per my review and the radiologist's interpretation: CT SCAN OF THE BRAIN WITHOUT IV CONTRAST CLINICAL HISTORY: Change in mental status. COMPARISON STUDY: CT of the brain dated 06/25/2018. TECHNIQUE: Unenhanced axial CT scan of the brain is performed from the vertex to the skull base. A dose lowering technique was utilized adhering to the principles of ALARA. CT DOSE: 537.48 mGy.cm FINDINGS: Brain parenchyma: There are age-related involutional changes noting moderate to advanced subcortical and periventricular microangiopathic change. 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 There is no hemorrhage, mass effect, or evidence of acute territorial ischemia by CT criteria. Clarke-white matter differentiation is preserved. No extra-axial fluid collection is seen. Ventricles, sulci, cisterns: Prominent secondary to involutional change. Intracranial vasculature: There is atherosclerotic calcification of the cavernous carotid and vertebral arteries. Calvarium: Unremarkable. Sinuses and mastoids: The visualized paranasal sinuses are clear. The mastoid air cells are well pneumatized. Orbits: The bony orbits are grossly intact. There is a right ocular lens implant. IMPRESSION: Senescent changes as above with no hemorrhage, mass effect, or evidence of acute territorial ischemia by CT criteria. Electronically signed by: Arie Greenberg M.D. 11/10/2018 2:50 PM SINGLE VIEW CHEST CLINICAL HISTORY: Generalized weakness. FINDINGS: An AP, portable, upright chest radiograph is compared to study dated 06/20/2018 and correlated with chest CT dated 05/28/2017. The examination is degraded by portable technique, large body habitus, and patient rotation. A 2- lead cardiac pacemaker is unchanged in position. The heart is enlarged and there is atherosclerotic calcification of the thoracic aorta. There is pulmonary vascular congestion. Hazy bilateral airspace opacities likely represent interstitial edema. Trace pleural effusions are suspected. Bibasilar atelectasis is noted. No pneumothorax is seen. The skeletal structures are osteopenic. Posttraumatic deformity is partially visualized in the left proximal humerus. IMPRESSION: 1. Cardiomegaly and cardiac pacemaker with evidence of congestive failure. 2. Bilateral airspace opacities likely represent interstitial edema. Correlate clinically for evidence of superimposed pneumonia. 3. Suspect trace pleural effusions. Electronically signed by: Arie Greenberg M.D. 11/10/2018 12:59 PM ECG Data Attestation: I personally reviewed and interpreted this ECG as follows: Indication: altered mental status and SOB/dyspnea Rate (beats per minute): 65 Rhythm: normal sinus Findings: no PVC and no ST elevation Additional Comments: Repeat EKG per my interpretation: Atrial paced maker, occasional [place] beats. [address] elevation. 1 PVC present. Blood Pressure Blood Pressure Findings: Normal blood pressure Blood Pressure Disposition: further management by hospitalist [facility] Narrative There is no leukocytosis or concerning anemia. The patient has a normal platelet count. INR is somewhat elevated at 1.5, this is likely from her Xarelto use. ABG shows an alkalosis with a pH of 7.51. No CO2 retention, the PO2 was adequate. Renal panel testing does not show renal failure or significant electrolyte abnormality. The patient had a normal lactate value, this makes sepsis less likely. BNP was not significantly elevated. EKG initial ly showed a sinus rhythm and then a separate EKG showed a functioning atrial pacemaker. Cardiac enzyme testing x1 is not consistent with acute cardiac injury. The patient appeared to be in a euthyroid state. Urinalysis did not show infection. Chest film showed heart failure, no pneumonia. Brain CT showed no acute bleed or mass-effect. On exam, the patient seemed short of breath. She was not toxic or febrile. She did seem anxious. The patient received IV Lasix, 60 mg. She was given a DuoNeb. She received IV Ativan for anxiety. A [place] catheter was placed to monitor her urine output. The patient presents with a change in mental status, confusion, weakness and shortness of breath. She is in heart failure and certainly, the confusion may be from hypoxia. She is doing well now on supplemental oxygen. I did speak to the patient and case management, I talked with the patient's kirsty vizcarra. Hospitalization is warranted. The on-call hospitalist was consulted. Impression & Plan Change in mental status, CHF (congestive heart failure), Shortness of breath Discharge Plan Visit Data *Final* Discharge Date/Time: 11/10/18 17:37 Chief Complaint: Altered Mental Status ED Provider: Arie Bach Discharge Problem: Change in mental status, CHF (congestive heart failure), Shortness of breath Patient Disposition: Admitted As Inpatient Discharge Instructions Interventions: ED Discharge Assessment Last Done: 11/10/18 17:37 Discharge Problem: Change in mental status Qualifiers: Altered mental status type: unspecified Qualified Code(s): R41.82 - Altered mental status, unspecified CHF (congestive heart failure) Qualifiers: Heart failure type: unspecified Heart failure chronicity: acute on chronic Qualified Code(s): I50.9 - Heart failure, unspecified The cheribe's documentation has been prepared under my direction and personally reviewed by me in its entirety. I confirm that the note above accurately reflects all work, treatment, procedures, and medical decision making performed by me.
--- NOTE | 2018-11-10 13:00 | XRay Report ---
SINGLE VIEW CHEST CLINICAL HISTORY: Generalized weakness. FINDINGS: An AP, portable, upright chest radiograph is compared to study dated 06/20/2018 and correlate d with chest CT dated 05/28/2017. The examination is degraded by portable technique, large body habitu s, and patient rotation. A 2-lead cardiac pacemaker is unchanged in position. The heart is enlarged a nd there is atherosclerotic calcification of the thoracic aorta. There is pulmonary vascular congesti on. Hazy bilateral airspace opacities likely represent interstitial edema. Trace pleural effusions ar e suspected. Bibasilar atelectasis is noted. No pneumothorax is seen. The skeletal structures are ost eopenic. Posttraumatic deformity is partially visualized in the left proximal humerus. IMPRESSION: 1. Cardiomegaly and cardiac pacemaker with evidence of congestive failure. 2. Bilateral airspace opacities likely represent interstitial edema. Correlate clinically for evidenc e of superimposed pneumonia. 3. Suspect trace pleural effusions. Electronically signed by: Arie Greenberg M.D. 11/10/2018 12:59 PM
[2018-11-10] MEDS ORDERED: FUROSEMIDE 60 MG in SYRINGE 0 ML IV STA (13:06)
[2018-11-10 13:46] LABS: Basophils # (auto) 0.04 K/uL (0-0.2); Basophils % (auto) 0.4 %; Eosinophils # (auto) 0.17 K/uL (0-0.5); Eosinophils % (auto) 1.7 %; Hematocrit (blood only) 39.6 % (37-47); Hemoglobin 12.5 g/dL (12.0-16.0); Immature Granulocytes # (auto) 0.08 K/uL (0.00-0.02); Immature Granulocytes % (auto) 0.8 %; Lymphocytes # (auto) 1.42 K/uL (1.2-3.4); Lymphocytes % (auto) 14.1 %; Mean Corpuscular Hgb Conc 31.6 g/dL (32-36); Mean Corpuscular Volume 99.7 fL (80-100); Mean Platelet Volume 10.6 fL (7.4-10.4); Monocytes # (auto) 1.03 K/uL (0.11-0.59); Monocytes % (auto) 10.2 %; Neutrophils # (auto) 7.34 K/uL (1.4-6.5); Neutrophils % (auto) 72.8 %; Platelet Count 179 K/uL (130-400); RDW Coefficient of Variation 14.6 % (11.5-14.5); RDW Standard Deviation 53.7 fL (36.4-46.3); Red Blood Count 3.97 M/uL (4.2-5.4); White Blood Count 10.08 K/uL (4.8-10.8)
[2018-11-10 14:02] LABS: Alanine Aminotransferase 18 U/L (12-78); Albumin Level 3.1 gm/dl (3.4-5.0); Aspartate Aminotransferase 23 U/L (15-37); BUN Creatinine Ratio 17.9 (10-20); Blood Urea Nitrogen 21 mg/dl (7-18); Calcium 9.1 mg/dl (8.5-10.1); Carbon Dioxide 37 mmol/L (21-32); Chloride 102 mmol/L (98-107); Creatinine Clr Calc Pharmacy 45.9 ml/min; Est GFR (African American) 49.9; Glucose 102 mg/dl (70-99); Magnesium 2.7 mg/dl (1.8-2.4); Potassium 4.4 mmol/L (3.5-5.1); Sodium 142 mmol/L (136-145)
[2018-11-10 14:08] LABS: INR 1.5 (0.9-1.1); Partial Thromboplastin Ratio 1.3; Partial Thromboplastin Time 34.5 Seconds (21.0-31.0); Prothrombin Time 14.7 Seconds (9.0-12.0)
[2018-11-10 14:13] LABS: Albumin Globulin Ratio 0.7 (0.9-2); Alkaline Phosphatase 66 U/L (45-117); Bilirubin,Total 0.6 mg/dl (0.2-1); Globulin 4.6 gm/dl (2.5-4.0); NT Pro B Type Natriuretic Pept 784 pg/ml (0-1800); Total Protein 7.7 gm/dl (6.4-8.2); Troponin I < 0.015 ng/ml (0-0.045)
[2018-11-10 14:15] LABS: Base Excess ABG 6.1 mEq/L (-9-1.8); HCO3 ABG 29 mmol/L (19-24); Oxygen Saturation ABG 99.4 % (90-95); PCO2 ABG 38 mmHg (35-46); PO2 ABG 166 mm/Hg (80-95)
[2018-11-10 14:17] LABS: Allen Test Pos (Pos)
[2018-11-10 14:19] LABS: pH ABG 7.51 (7.35-7.45)
[2018-11-10] MEDS ORDERED: FUROSEMIDE 40 MG/4 ML VIAL IV ONE (14:35)
--- NOTE | 2018-11-10 14:51 | CT Scan Report ---
CT SCAN OF THE BRAIN WITHOUT IV CONTRAST CLINICAL HISTORY: Change in mental status. COMPARISON STUDY: CT of the brain dated 06/25/2018. TECHNIQUE: Unenhanced axial CT scan of the brain is performed from the vertex to the skull base. A do se lowering technique was utilized adhering to the principles of ALARA. CT DOSE: 537.48 mGy.cm FINDINGS: Brain parenchyma: There are age-related involutional changes noting moderate to advanced subcortical and periventricular microangiopathic change. A chronic lacunar infarct is noted in the right cerebel lar hemisphere. There is no hemorrhage, mass effect, or evidence of acute territorial ischemia by CT criteria. Clarke-white matter differentiation is preserved. No extra-axial fluid collection is seen. Ventricles, sulci, cisterns: Prominent secondary to involutional change. Intracranial vasculature: There is atherosclerotic calcification of the cavernous carotid and vertebr al arteries. Calvarium: Unremarkable. Sinuses and mastoids: The visualized paranasal sinuses are clear. The mastoid air cells are well pneu matized. Orbits: The bony orbits are grossly intact. There is a right ocular lens implant. IMPRESSION: Senescent changes as above with no hemorrhage, mass effect, or evidence of acute territor ial ischemia by CT criteria. Electronically signed by: Arie Greenberg M.D. 11/10/2018 2:50 PM
[2018-11-10 15:37] LABS: Appearance Urine Clear (Clear); Bacteria Urine Automated Negative (Negative); Bilirubin Urine Negative (Negative); Blood Urine Trace (Negative); Cast Urine Automated 0 /lpf (0-5); Color Urine Yellow; Glucose Urine UA Negative (Negative); Ketones Urine Negative (Negative); Leukocyte Esterase Urine Negative (Negative); Nitrite Urine Negative (Negative); Protein Urine Negative (Negative); Specific Gravity Urine 1.014 (1.000-1.030); Urobilinogen Urine Negative (Negative); WBC Urine Automated 0 /hpf (0-5)
--- NOTE | 2018-11-10 16:53 | History & Physical Report ---
Date of Service November 10, 2018 Assessment & Plan (1) Diastolic congestive heart failure: Presents with acute on chronic diastolic CHF Presented with tachypnea, hypoxia, evidence of pulmonary edema on chest x-ray, and weight is elevated in the ER compared to previous. She has been getting daily weights and PRN metolazone at the personal halfway, but daughter does report that the patient will be fed ham and processed cheese crackers at times. Her weight has steadily gone up over the past several months. Troponin negative upon admission, proBNP is within normal limits at 784 although it is elevated from previous Chest x-ray findings could be consistent with infectious pneumonitis as per radiology but she does not have any other signs or symptoms of pneumonia at this time and therefore does not need antibiotics -Admit to telemetry unit -Continue Lasix 60 mg IV every 12 hours -Strict I's and O's, low-sodium diet, daily weights -Consult cardiology as she is followed in the CHF clinic -Follow BMP and replace potassium as needed -Hold home torsemide for now and will continue home Spironolactone -Continue good blood pressure control and rate control with metoprolol (2) AF (paroxysmal atrial fibrillation): Currently in normal sinus rhythm upon admission Has pacemaker in place for tachybradycardia syndrome -Continue Toprol-XL 150 mg p.o. once daily, continue diltiazem 120 mill grams once daily -Continue Xarelto but will renally dose at 15 mg once daily -Follow on telemetry (3) Apnea, sleep: Continue CPAP nightly (4) Asthma: Daughter reports wheezing noted at home. No wheezing currently but was given a bronchodilator nebulizer treatment before I saw her -Continue scheduled albuterol nebs while here but no steroids necessary -Continue budesonide neb twice daily (5) Cardiac pacemaker: Placed for tachybradycardia syndrome -Followed by cardiology (6) Dementia, in, senility: Stable, does eat her meals but is not able to carry on simple conversations. She does recognize her family members -Continue supportive care -Continue donepezil 10 mg daily and memantine 5 mg daily (7) Depression: Stable -Continue sertraline 50 mill grams daily (8) High cholesterol: It does not appear that she is currently on any medication for this (9) Hypertension: Controlled -Continue Toprol, diltiazem, diuretics as above (10) Obesity: BMI 42.7 is noted (11) Acute metabolic encephalopathy: Mild alteration in mental status as per daughter could be related to the mild hypoxia Again, no infectious source noted for now, will watch for fevers but chest x-ray findings likely consistent with pulmonary edema rather than pneumonia. -Treat CHF and hypoxia as above (12) DVT prophylaxis: Xarelto Disposition-admit to telemetry unit DNR/DNI as discussed with her daughter, Debbi, at the bedside who is her [facility] power of state attorney History of Present Illness Chief Complaint: Shortness of breath Primary Care Provider: Chantell This patient is an 88-year-old female with a history of chronic diastolic CHF, HTN, PAF, tachybradycardia syndrome status post pacemaker, HILARIO on CPAP, moderate-severe dementia, asthma, morbid obesity, depression, glaucoma, and hyperlipidemia who was brought in by EMS from her personal halfway for progressively worsening shortness of breath over the last 2 days. Her daughter is a nurse and noticed 2 days prior that she was having wheezing and shortness of breath but did not notice a cough and she had no fever. She was given an extra dose of diuretics last week and had some improvement. The daughter reports her breathing was improved by yesterday, but then she was contacted by the personal halfway today stating that the patient was having worsening shortness of breath again and the daughter recommended she be transported to the ER. The daughter thinks that perhaps the patient is just slightly more confused than her baseline. The patient is not able to give any history at all due to her dementia. Daughter reports that the patient has gained weight over the last few months and knows that she is only been given the metolazone 2 times in the last month which is her PRN for weight gain. In the ER, she was noted to be hypoxic and requiring 2 L nasal cannula, tachypneic, afebrile, and was normotensive. Her chest x-ray showed pulmonary edema and trace bilateral pleural effusions consistent with CHF. An ABG showed evidence of respiratory alkalosis due to her tachypnea. She was in a normal sinus rhythm, and had a negative CT noncontrast of the head. A [place] catheter was placed and she was given 1 dose of IV Lasix 60 mg and already had 600 mL's out by the time I saw her. She will be admitted for an acute on chronic diastolic CHF exacerbation Allergies Allergy/AdvReac Type Severity Reaction Status Date / Time No Known Allergies Allergy Verified 11/10/18 13:04 Home Medications Home Medications Medication Instructions Recorded Confirmed Type [place] 1 puff INHALATION DAILY 06/20/18 11/10/18 History Oyster Shell Calcium-Vit D3 1 tab PO DAILY 06/20/18 11/10/18 History Xarelto 20 mg PO DAILY 06/20/18 11/10/18 History acetaminophen [Tylenol Extra 500 mg PO Q4 PRN 06/20/18 11/10/18 History Strength] budesonide [Pulmicort] 1 vial INHALATION BID 06/20/18 11/10/18 History diltiazem HCl [Cardizem CD] 120 mg PO DAILY 06/20/18 11/10/18 History diphenhydramine HCl [Banophen] 25 mg PO Q6 PRN 06/20/18 11/10/18 History donepezil [Aricept] 10 mg PO HS 06/20/18 11/10/18 History ipratropium-albuterol 3 ml INHALATION Q6 PRN 06/20/18 11/10/18 History loperamide 2 mg PO UD PRN 06/20/18 11/10/18 History memantine [Namenda] 5 mg PO DAILY 06/20/18 11/10/18 History metoprolol succinate [Toprol XL] 150 mg PO DAILY 06/20/18 11/10/18 History nystatin 1 applic TOPICAL TID PRN 06/20/18 11/10/18 History polyethylene glycol 3350 [Miralax] 17 g PO DAILY PRN 06/20/18 11/10/18 History sertraline [Zoloft] 50 mg PO DAILY 06/20/18 11/10/18 History lorazepam 0.5 mg PO UD PRN #15 tab 06/24/18 11/10/18 Rx potassium chloride [Klor-Con M20] 20 meq PO BID #60 tab 06/24/18 11/10/18 Rx inhalational spacing device #1 ea 10/24/18 11/10/18 History spironolactone 25 mg tablet 25 mg PO .Take 1 tablet daily #90 10/24/18 11/10/18 History tab wheelchair #1 ea 11/07/18 11/10/18 Rx metolazone 2.5 mg PO DAILY PRN 11/10/18 11/10/18 History torsemide 60 mg PO BID 11/10/18 11/10/18 History Past Med/Surg History Medical History Urinary incontinence Tachycardia Symptomatic bradycardia Situational anxiety Pulmonary emphysema 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 Hypokalemia Edema Diastolic dysfunction Diastolic congestive heart failure Depression Dementia, in, senility Cardiac pacemaker AF (paroxysmal atrial fibrillation) Apnea, sleep Hypertension High cholesterol Alzheimers disease Asthma Heart disease Glaucoma Obesity Surgical History History of arthroscopic knee surgery History of permanent cardiac pacemaker placement History of umbilical hernia repair History of eye surgery Social History Preferred Language: Venezuelan Communication Ability: Impaired Scientist Propagator Required: No Beliefs That Will Affect Care: None Current Living Situation: Personal Care Facility Current Living Situation Comment: [facility] Other Information That Helps Us Care for You: No Feels Safe at Home: Yes Safety Concerns: Feels Safe At This Time Smoking Status: Never smoker Hx Alcohol Use: No Hx Substance Use: No Review of Systems Review of Systems: Unobtainable due to cognitive status (But negative otherwise as per daughter) Physical Exam Constitutional: + acute distress (With mild tachypnea, occasionally moans) and + morbidly obese Eyes: PERRL, conjunctivae normal, anicteric sclerae ENMT: Mouth: + oral mucosal abnormality (Tongue and buccal mucosa appear dry) Neck: trachea midline, no thyromegaly Respiratory: + labored breathing Auscultation: + diminished lung sounds (Throughout due to obese body habitus) and + crackles (At the bases bilaterally); no wheezes Cardiovascular: Rate/Rhythm: regular rate and regular rhythm Heart Sounds: no murmur Extremities: + edema (1+ pitting edema of the right leg to the knee and trace pitting edema of the left leg to the knee) Gastrointestinal (Abdomen): normal bowel sounds, soft, nontender, no hepatosplenomegaly Musculoskeletal: Extremities: extremities normal to inspection; no cyanosis and no clubbing Skin: + erythema (Mild chronic appearing erythema of the legs bilaterally); no rashes Neurologic: moves all extremities and awake; no focal motor deficits Psychiatric: Orientation: alert; + not oriented x 3 Genitourinary: no vaginal lesions, no adnexal mass ([place] catheter in place) Results & Data Vital Signs (Past 12 Hours) Vital Signs Temp Pulse Pulse Resp BP Pulse Ox 11/10/18 13:50 70 40 H 95 11/10/18 13:40 76 39 H 91 11/10/18 13:30 73 32 H 93 11/10/18 13:20 73 29 H 98 11/10/18 13:10 88 31 H 95 11/10/18 13:00 73 40 H 92 11/10/18 12:50 74 24 95 11/10/18 12:42 69 22 96 11/10/18 12:40 68 33 H 99 11/10/18 12:30 65 27 H 99 11/10/18 12:20 64 24 100 11/10/18 12:19 98 11/10/18 12:15 65 27 H 100 11/10/18 12:05 64 23 128/74 100 11/10/18 11:39 37.2 C 67 26 H 141/71 H 88 L Laboratory Results 11/10/18 11/10/18 11/10/18 Range/Units 18:45 14:50 14:05 WBC (4.8-10.8) K/uL RBC (4.2-5.4) M/uL Hgb (12.0-16.0) g/dL Hct (37-47) % MCV (80-100) fL MCH (25-34) pg MCHC (32-36) g/dL RDW Std Deviation (36.4-46.3) fL RDW Coeff of Kerry (11.5-14.5) % Plt Count (130-400) K/uL MPV (7.4-10.4) fL Immature Gran % (Auto) % Neut % (Auto) % Lymph % (Auto) % [place] % (Auto) % Eos % (Auto) % Baso % (Auto) % Immature Gran # (Auto) (0.00-0.02) K/uL Neut # (Auto) (1.4-6.5) K/uL Lymph # (Auto) (1.2-3.4) K/uL [place] # (Auto) (0.11-0.59) K/uL Eos # (Auto) (0-0.5) K/uL Baso # (Auto) (0-0.2) K/uL PT (9.0-12.0) Seconds INR (0.9-1.1) APTT (21.0-31.0) Seconds PTT Ratio ABG pH 7.51 H* (7.35-7.45) ABG pCO2 38 (35-46) mmHg ABG pO2 166 H (80-95) mm/Hg ABG HCO3 29 H (19-24) mmol/L ABG O2 Saturation 99.4 H (90-95) % ABG Base Excess 6.1 H (-9-1.8) mEq/L Tacho Test Pos (Pos) Barometric Pressure 734.5 mm/Hg Oxygen Given 2L Sodium (136-145) mmol/L Potassium (3.5-5.1) mmol/L Chloride (98-107) mmol/L Carbon Dioxide (21-32) mmol/L Anion Gap (3-11) BUN (7-18) mg/dl Creatinine (0.6-1.2) mg/dl Est Cr Clr Drug Dosing ml/min Est GFR ( Amer) Est GFR (Non-Af Amer) BUN/Creatinine Ratio (10-20) Glucose (70-99) mg/dl Lactate (0.4-2.0) mmol/L Calcium (8.5-10.1) mg/dl Magnesium (1.8-2.4) mg/dl Total Bilirubin (0.2-1) mg/dl AST (15-37) U/L ALT (12-78) U/L Alkaline Phosphatase (45-117) U/L Troponin I (0-0.045) ng/ml NT-Pro-B Natriuret Pep (0-1800) pg/ml Total Protein (6.4-8.2) gm/dl Albumin (3.4-5.0) gm/dl Globulin (2.5-4.0) gm/dl Albumin/Globulin Ratio (0.9-2) TSH (0.300-4.500) uIu/ml Urine Color Yellow Urine Appearance Clear (Clear) Urine pH 8.0 H (4.5-7.5) Ur Specific [place] 1.014 (1.000-1.030) Urine Protein Negative (Negative) Urine Glucose (UA) Negative (Negative) Urine Ketones Negative (Negative) Urine Blood Trace H (Negative) Urine Nitrite Negative (Negative) Urine Bilirubin Negative (Negative) Urine Urobilinogen Negative (Negative) Ur Leukocyte Esterase Negative (Negative) Urine WBC (Auto) 0 (0-5) /hpf Urine RBC (Auto) 5-10 H (0-4) /hpf U Hyaline Cast (Auto) 0 (0-5) /lpf U Epithel Cells (Auto) 10-20 H (0-5) /lpf Urine Bacteria (Auto) Negative (Negative) Nasal Screen MRSA (PCR) Pending 11/10/18 11/10/18 11/10/18 Range/Units 13:29 13:29 13:29 WBC (4.8-10.8) K/uL RBC (4.2-5.4) M/uL Hgb (12.0-16.0) g/dL Hct (37-47) % MCV (80-100) fL MCH (25-34) pg MCHC (32-36) g/dL RDW Std Deviation (36.4-46.3) fL RDW Coeff of Kerry (11.5-14.5) % Plt Count (130-400) K/uL MPV (7.4-10.4) fL Immature Gran % (Auto) % Neut % (Auto) % Lymph % (Auto) % [place] % (Auto) % Eos % (Auto) % Baso % (Auto) % Immature Gran # (Auto) (0.00-0.02) K/uL Neut # (Auto) (1.4-6.5) K/uL Lymph # (Auto) (1.2-3.4) K/uL [place] # (Auto) (0.11-0.59) K/uL Eos # (Auto) (0-0.5) K/uL Baso # (Auto) (0-0.2) K/uL PT 14.7 H (9.0-12.0) Seconds INR 1.5 H (0.9-1.1) APTT 34.5 H (21.0-31.0) Seconds PTT Ratio 1.3 ABG pH (7.35-7.45) ABG pCO2 (35-46) mmHg ABG pO2 (80-95) mm/Hg ABG HCO3 (19-24) mmol/L ABG O2 Saturation (90-95) % ABG Base Excess (-9-1.8) mEq/L Tacho Test (Pos) Barometric Pressure mm/Hg Oxygen Given Sodium 142 (136-145) mmol/L Potassium 4.4 (3.5-5.1) mmol/L Chloride 102 (98-107) mmol/L Carbon Dioxide 37 H (21-32) mmol/L Anion Gap 3.0 (3-11) BUN 21 H (7-18) mg/dl Creatinine 1.15 (0.6-1.2) mg/dl Est Cr Clr Drug Dosing 45.9 ml/min Est GFR ( Amer) 49.9 Est GFR (Non-Af Amer) 43.0 BUN/Creatinine Ratio 17.9 (10-20) Glucose 102 H (70-99) mg/dl Lactate 1.3 (0.4-2.0) mmol/L Calcium 9.1 (8.5-10.1) mg/dl Magnesium 2.7 H (1.8-2.4) mg/dl Total Bilirubin 0.6 (0.2-1) mg/dl AST 23 (15-37) U/L ALT 18 (12-78) U/L Alkaline Phosphatase 66 (45-117) U/L Troponin I < 0.015 (0-0.045) ng/ml NT-Pro-B Natriuret Pep 784 (0-1800) pg/ml Total Protein 7.7 (6.4-8.2) gm/dl Albumin 3.1 L (3.4-5.0) gm/dl Globulin 4.6 H (2.5-4.0) gm/dl Albumin/Globulin Ratio 0.7 L (0.9-2) TSH 2.790 (0.300-4.500) uIu/ml Urine Color Urine Appearance (Clear) Urine pH (4.5-7.5) Ur Specific [place] (1.000-1.030) Urine Protein (Negative) Urine Glucose (UA) (Negative) Urine Ketones (Negative) Urine Blood (Negative) Urine Nitrite (Negative) Urine Bilirubin (Negative) Urine Urobilinogen (Negative) Ur Leukocyte Esterase (Negative) Urine WBC (Auto) (0-5) /hpf Urine RBC (Auto) (0-4) /hpf U Hyaline Cast (Auto) (0-5) /lpf U Epithel Cells (Auto) (0-5) /lpf Urine Bacteria (Auto) (Negative) Nasal Screen MRSA (PCR) 11/10/18 Range/Units 13:29 WBC 10.08 (4.8-10.8) K/uL RBC 3.97 L (4.2-5.4) M/uL Hgb 12.5 (12.0-16.0) g/dL Hct 39.6 (37-47) % MCV 99.7 (80-100) fL MCH 31.5 (25-34) pg MCHC 31.6 L (32-36) g/dL RDW Std Deviation 53.7 H (36.4-46.3) fL RDW Coeff of Kerry 14.6 H (11.5-14.5) % Plt Count 179 (130-400) K/uL MPV 10.6 H (7.4-10.4) fL Immature Gran % (Auto) 0.8 % Neut % (Auto) 72.8 % Lymph % (Auto) 14.1 % [place] % (Auto) 10.2 % Eos % (Auto) 1.7 % Baso % (Auto) 0.4 % Immature Gran # (Auto) 0.08 H (0.00-0.02) K/uL Neut # (Auto) 7.34 H (1.4-6.5) K/uL Lymph # (Auto) 1.42 (1.2-3.4) K/uL [place] # (Auto) 1.03 H (0.11-0.59) K/uL Eos # (Auto) 0.17 (0-0.5) K/uL Baso # (Auto) 0.04 (0-0.2) K/uL PT (9.0-12.0) Seconds INR (0.9-1.1) APTT (21.0-31.0) Seconds PTT Ratio ABG pH (7.35-7.45) ABG pCO2 (35-46) mmHg ABG pO2 (80-95) mm/Hg ABG HCO3 (19-24) mmol/L ABG O2 Saturation (90-95) % ABG Base Excess (-9-1.8) mEq/L Tacho Test (Pos) Barometric Pressure mm/Hg Oxygen Given Sodium (136-145) mmol/L Potassium (3.5-5.1) mmol/L Chloride (98-107) mmol/L Carbon Dioxide (21-32) mmol/L Anion Gap (3-11) BUN (7-18) mg/dl Creatinine (0.6-1.2) mg/dl Est Cr Clr Drug Dosing ml/min Est GFR ( Amer) Est GFR (Non-Af Amer) BUN/Creatinine Ratio (10-20) Glucose (70-99) mg/dl Lactate (0.4-2.0) mmol/L Calcium (8.5-10.1) mg/dl Magnesium (1.8-2.4) mg/dl Total Bilirubin (0.2-1) mg/dl AST (15-37) U/L ALT (12-78) U/L Alkaline Phosphatase (45-117) U/L Troponin I (0-0.045) ng/ml NT-Pro-B Natriuret Pep (0-1800) pg/ml Total Protein (6.4-8.2) gm/dl Albumin (3.4-5.0) gm/dl Globulin (2.5-4.0) gm/dl Albumin/Globulin Ratio (0.9-2) TSH (0.300-4.500) uIu/ml Urine Color Urine Appearance (Clear) Urine pH (4.5-7.5) Ur Specific [place] (1.000-1.030) Urine Protein (Negative) Urine Glucose (UA) (Negative) Urine Ketones (Negative) Urine Blood (Negative) Urine Nitrite (Negative) Urine Bilirubin (Negative) Urine Urobilinogen (Negative) Ur Leukocyte Esterase (Negative) Urine WBC (Auto) (0-5) /hpf Urine RBC (Auto) (0-4) /hpf U Hyaline Cast (Auto) (0-5) /lpf U Epithel Cells (Auto) (0-5) /lpf Urine Bacteria (Auto) (Negative) Nasal Screen MRSA (PCR) Diagnostic Findings Chest x-ray image personally reviewed by me and agree with the following report: SINGLE VIEW CHEST CLINICAL HISTORY: Generalized weakness. FINDINGS: An AP, portable, upright chest radiograph is compared to study dated 06/20/2018 and correlated with chest CT dated 05/28/2017. The examination is degraded by portable technique, large body habitus, and patient rotation. A 2- lead cardiac pacemaker is unchanged in position. The heart is enlarged and there is atherosclerotic calcification of the thoracic aorta. There is pulmonary vascular congestion. Hazy bilateral airspace opacities likely represent interstitial edema. Trace pleural effusions are suspected. Bibasilar atelectasis is noted. No pneumothorax is seen. The skeletal structures are osteopenic. Posttraumatic deformity is partially visualized in the left proximal humerus. IMPRESSION: 1. Cardiomegaly and cardiac pacemaker with evidence of congestive failure. 2. Bilateral airspace opacities likely represent interstitial edema. Correlate clinically for evidence of superimposed pneumonia. 3. Suspect trace pleural effusions. CT SCAN OF THE BRAIN WITHOUT IV CONTRAST CLINICAL HISTORY: Change in mental status. COMPARISON STUDY: CT of the brain dated 06/25/2018. TECHNIQUE: Unenhanced axial CT scan of the brain is performed from the vertex to the skull base. A dose lowering technique was utilized adhering to the principles of ALARA. CT DOSE: 537.48 mGy.cm FINDINGS: Brain parenchyma: There are age-related involutional changes noting moderate to advanced subcortical and periventricular microangiopathic change. A chronic lacunar infarct is noted in the right cerebellar hemisphere. There is no hemorrhage, mass effect, or evidence of acute territorial ischemia by CT criteria. Clarke-white matter differentiation is preserved. No extra-axial fluid collection is seen. Ventricles, sulci, cisterns: Prominent secondary to involutional change. Intracranial vasculature: There is atherosclerotic calcification of the cavernous carotid and vertebral arteries. Calvarium: Unremarkable. Sinuses and mastoids: The visualized paranasal sinuses are clear. The mastoid air cells are well pneumatized. Orbits: The bony orbits are grossly intact. There is a right ocular lens implant. IMPRESSION: Senescent changes as above with no hemorrhage, mass effect, or evidence of acute territorial ischemia by CT criteria. ECG Additional Comments: ECG #1 normal sinus rhythm ECG #2 sinus rhythm with PACs and probably blocked PACs as well as atrial demand pacing, no ischemic changes Code Status & VTE Plan Code Status DNR/DNI VTE Prophylaxis Plan VTE Prophylaxis will be ordered: Yes PG Care Time/CCT Total # of Minutes Spent Total Time Spent with Patient: Total time spent is greater than 50% in coordination of care (as documented) at patient's floor/unit and/or counseling patient: (1) Diastolic congestive heart failure Heart failure chronicity: acute on chronic Qualified Code(s): I50.33 - Acute on chronic diastolic (congestive) heart failure (2) Hypertension Hypertension type: essential hypertension Qualified Code(s): I10 - Essential (primary) hypertension
[2018-11-10] MEDS ORDERED: ACETAMINOPHEN 500 MG TAB PO PRN (18:16)
[2018-11-10] MEDS ORDERED: POLYETHYLENE (MIRALAX) 17 GM PACK PO PRN (18:16)
[2018-11-10] MEDS ORDERED: ONDANSETRON INJ 2 MG/ML 2 ML VIAL IV PRN (18:16)
[2018-11-10] MEDS: ALBUT/IPRATROP 3MG/0.5MG NEB 3 ML VIAL INH SCH (19:17)
[2018-11-10] MEDS: BUDESONIDE 0.5 MG/2 ML VIAL (PULMICORT) INH SCH (19:17)
[2018-11-10] MEDS: POTASSIUM CHLORIDE 20 MEQ TABCR PO SCH (20:31)
[2018-11-10] MEDS: FUROSEMIDE 60 MG in SYRINGE 0 ML IV SCH (20:31)
[2018-11-10] MEDS: DONEPEZIL HCL 10 MG TAB PO SCH (20:31)
[2018-11-11] MEDS: ALBUT/IPRATROP 3MG/0.5MG NEB 3 ML VIAL INH SCH ×4 (01:49→19:30)
[2018-11-11 06:58] LABS: Basophils # (auto) 0.06 K/uL (0-0.2); Basophils % (auto) 0.7 %; Eosinophils # (auto) 0.11 K/uL (0-0.5); Eosinophils % (auto) 1.2 %; Hematocrit (blood only) 38.8 % (37-47); Hemoglobin 12.1 g/dL (12.0-16.0); Immature Granulocytes # (auto) 0.07 K/uL (0.00-0.02); Immature Granulocytes % (auto) 0.8 %; Lymphocytes # (auto) 1.53 K/uL (1.2-3.4); Lymphocytes % (auto) 17.1 %; Mean Corpuscular Hgb Conc 31.2 g/dL (32-36); Mean Corpuscular Volume 100.8 fL (80-100); Mean Platelet Volume 10.3 fL (7.4-10.4); Monocytes # (auto) 1.01 K/uL (0.11-0.59); Monocytes % (auto) 11.3 %; Neutrophils # (auto) 6.19 K/uL (1.4-6.5); Neutrophils % (auto) 68.9 %; Platelet Count 173 K/uL (130-400); RDW Coefficient of Variation 14.8 % (11.5-14.5); RDW Standard Deviation 54.7 fL (36.4-46.3); Red Blood Count 3.85 M/uL (4.2-5.4); White Blood Count 8.97 K/uL (4.8-10.8)
[2018-11-11] MEDS: BUDESONIDE 0.5 MG/2 ML VIAL (PULMICORT) INH SCH ×2 (06:59→19:16)
[2018-11-11 07:29] LABS: Calcium 8.9 mg/dl (8.5-10.1); Creatinine Clr Calc Pharmacy 47.2 ml/min; Est GFR (African American) 53.2; Est GFR (Non-African American) 45.9; Magnesium 2.9 mg/dl (1.8-2.4); Potassium 3.9 mmol/L (3.5-5.1)
[2018-11-11] MEDS: POTASSIUM CHLORIDE 20 MEQ TABCR PO SCH ×2 (07:37→19:36)
[2018-11-11] MEDS: FUROSEMIDE 60 MG in SYRINGE 0 ML IV SCH (07:37)
[2018-11-11] MEDS: MEMANTINE HCL 5 MG TAB PO SCH (07:38)
[2018-11-11] MEDS: dilTIAZem HCL 120 MG CAPCR PO SCH (07:38)
[2018-11-11] MEDS: SPIRONOLACTONE 25 MG TAB PO SCH (07:38)
[2018-11-11] MEDS: SERTRALINE HCL 50 MG TABLET PO SCH (07:39)
[2018-11-11] MEDS ORDERED: VANCOMYCIN CONSULT ACTIVE PRN (08:56)
[2018-11-11] MEDS ORDERED: METOPROLOL SUCC 50MG EXT REL TAB PO SCH (09:00)
[2018-11-11] MEDS ORDERED: NON-FORMULARY MEDICATION (Fluticasone Furoate-Vilanterol [Breo Ellipta] 1 PUFFS) INH SCH (09:00)
[2018-11-11] MEDS ORDERED: VANCOMYCIN HCL 1,000 MG in SODIUM CHLORIDE 0.9% 250 ML IV SCH (09:00)
[2018-11-11] MEDS ORDERED: RIVAROXABAN 15 MG TAB PO SCH (09:00)
[2018-11-11] MEDS ORDERED: VANCOMYCIN HCL 2,750 MG in SODIUM CHLORIDE 0.9% 500 ML IV ONE (09:30)
--- NOTE | 2018-11-11 10:28 | Infectious Disease Consult ---
Date of Consultation November 11, 2018 Assessment & Plan (1) Gram positive sepsis: agree with vanco pending additional micro results. will repeat blood cultures x 2. UA negative, cxr negative, ? source. Concern for pacemaker - will need echo, may need DEDRA due to morbid obesity. will follow. History of Present Illness Attending Physician: Madonna Sloan MD pt admitted with increased sob x 2 days. pt has h/o underlying dementia, not able to provide ros, history obtained from chart. Pt is agitated on exam, refusing bath. she denies sob, cp, abd pain on my exam. In ER she was found to have temp 37.4, blood cultures obtained, now growing gpc in 4/4 bottles. On vanco emperically, tolerating well. currently afebrile. wbc 3.8, creat 1.0, UA negative, CXR showing edema, no infiltrate. Has pacemaker. newell in place. Allergies Allergy/AdvReac Type Severity Reaction Status Date / Time No Known Allergies Allergy Verified 11/10/18 13:04 Home Medications Home Medications Medication Instructions Recorded Confirmed Type [place] Ellipta 1 puff INHALATION DAILY 06/20/18 11/10/18 History Oyster Shell Calcium-Vit D3 1 tab PO DAILY 06/20/18 11/10/18 History Xarelto 20 mg PO DAILY 06/20/18 11/10/18 History acetaminophen [Tylenol Extra 500 mg PO Q4 PRN 06/20/18 11/10/18 History Strength] budesonide [Pulmicort] 1 vial INHALATION BID 06/20/18 11/10/18 History diltiazem HCl [Cardizem CD] 120 mg PO DAILY 06/20/18 11/10/18 History diphenhydramine HCl [Banophen] 25 mg PO Q6 PRN 06/20/18 11/10/18 History donepezil [Aricept] 10 mg PO HS 06/20/18 11/10/18 History ipratropium-albuterol 3 ml INHALATION Q6 PRN 06/20/18 11/10/18 History loperamide 2 mg PO UD PRN 06/20/18 11/10/18 History memantine [Namenda] 5 mg PO DAILY 06/20/18 11/10/18 History metoprolol succinate [Toprol XL] 150 mg PO DAILY 06/20/18 11/10/18 History nystatin 1 applic TOPICAL TID PRN 06/20/18 11/10/18 History polyethylene glycol 3350 [Miralax] 17 g PO DAILY PRN 06/20/18 11/10/18 History sertraline [Zoloft] 50 mg PO DAILY 06/20/18 11/10/18 History lorazepam 0.5 mg PO UD PRN #15 tab 06/24/18 11/10/18 Rx potassium chloride [Klor-Con M20] 20 meq PO BID #60 tab 06/24/18 11/10/18 Rx inhalational spacing device #1 ea 10/24/18 11/10/18 History spironolactone 25 mg tablet 25 mg PO .Take 1 tablet daily #90 10/24/18 11/10/18 History tab wheelchair #1 ea 11/07/18 11/10/18 Rx metolazone 2.5 mg PO DAILY PRN 11/10/18 11/10/18 History torsemide 60 mg PO BID 11/10/18 11/10/18 History Patient History Medical History Urinary incontinence Tachycardia Symptomatic bradycardia Situational anxiety Pulmonary emphysema 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 Hypokalemia Edema Diastolic dysfunction Diastolic congestive heart failure Depression Dementia, in, senility Cardiac pacemaker AF (paroxysmal atrial fibrillation) Apnea, sleep Hypertension High cholesterol Alzheimers disease Asthma Heart disease Glaucoma Obesity Surgical History History of arthroscopic knee surgery History of permanent cardiac pacemaker placement History of umbilical hernia repair History of eye surgery Social History Preferred Language: Dutch Communication Ability: Impaired 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 Beliefs That Will Affect Care: None Current Living Situation: Personal Care Facility Current Living Situation Comment: [facility] Other Information That Helps Us Care for You: No Feels Safe at Home: Yes Safety Concerns: Feels Safe At This Time Smoking Status: Never smoker Hx Alcohol Use: No Hx Substance Use: No Review of Systems Review of Systems: Unobtainable due to cognitive status Physical Exam Constitutional: WD/WN, vitals as above + morbidly obese Eyes: PERRL, conjunctivae normal, anicteric sclerae ENMT: external ear and nose normal, oropharynx normal Neck: normal visual inspection Respiratory: normal respiratory effort, lungs clear to auscultation Auscultation: + diminished lung sounds Cardiovascular: RRR, no murmur, no edema Gastrointestinal (Abdomen): normal bowel sounds, soft, nontender, no hepatosplenomegaly Musculoskeletal: no cyanosis or clubbing, extremities motor strength 5/5 moving all extremities but does not follow commands. Skin: no rashes, warm and dry Psychiatric: Orientation: alert Affect: + anxious affect Results & Data Vital Signs (Past 12 Hours) Vital Signs Temp Pulse Pulse Resp BP Pulse Ox 11/11/18 09:10 95 11/11/18 06:59 37.3 C 67 20 125/76 93 11/11/18 06:20 69 11/11/18 03:27 37.4 C 66 16 154/82 H 93 11/11/18 01:51 70 19 90 11/10/18 22:56 37.4 C 71 22 132/78 91 Laboratory Results Microbiology 11/10/18 13:29 Blood Aerobic Blood Culture - Preliminary Gram positive cocci in chains 11/10/18 13:29 Blood Anaerobic Blood Culture - Preliminary Gram positive cocci 11/10/18 13:34 Blood Aerobic Blood Culture - Preliminary Gram positive cocci 11/10/18 13:34 Blood Anaerobic Blood Culture - Preliminary Gram positive cocci
--- NOTE | 2018-11-11 11:58 | Cardiology Consultation ---
Date of Consultation November 11, 2018 Assessment & Plan (1) CHF (congestive heart failure): The patient can provide no significant history but was noted to be tachypneic by the nursing staff at her facility. There was some suggestion of pulmonary vascular congestion on her x-ray but other objective findings conflicted with that assumption. Patient has an terminal proBNP was in the normal range. She is on a very aggressive diuretic regimen on daily basis. She was tachypneic when I entered the room today and this may be more a response to a metabolic process or simply anxiety and function of her dementia. I think she could be returned to her regular diuretic regimen which includes b.i.d. torsemide and spironolactone. (2) AF (paroxysmal atrial fibrillation): Patient has had some episodes of atrial fibrillation recently. She 1 extended episode day prior to admission. It is possible that this resulted in some element of decompensation of her known diastolic heart failure. She is currently in a sinus rhythm. I did activate atrial preference pacing in the hopes of reducing some of her episodes of atrial fibrillation. I also think that her ventricular rates are slightly elevated during her episodes of atrial fibrillation we will attempt to be more aggressive with her rate control. She is currently on Xarelto, but perhaps transitioning her to Eliquis would be beneficial given the borderline nature of her renal function. (3) Cardiac pacemaker: Normal function. Atrial preference pacing activated today. (4) Bacteremia due to Gram-positive bacteria: Unknown source. Unknown organism. Will follow the cultures. No evidence of device infection based on her examination. History of Present Illness Reason for Consultation: Dyspnea Requesting Physician: Nathalia Attending Physician: Madonna Sloan MD History of Present Illness Patient is an 88-year-old woman with severe dementia and a history of diastolic heart failure, paroxysmal atrial fibrillation and tachy-mandy syndrome who was sent to the emergency room by her nursing facility for symptoms of dyspnea and altered mental status. Unfortunately, the patient could provide no significant history. She currently did not verbalize any complaints. She did not report any breathing difficulty, chest pain, sense of palpitation or insight into her current admission. She cannot provide me the name of her current residence. The medical record suggests that she was either sent here for altered mental status or possibly breathing difficulties. Patient is known to have an element of diastolic heart failure and occasionally requires additional diuretics. She is on an aggressive diuretic regimen normally and takes metolazone on a p.r.n. basis. Based on the perception of dyspnea and an abnormal chest x-ray she was administered intravenous diuretics yesterday with significant diuresis. Allergies Allergy/AdvReac Type Severity Reaction Status Date / Time No Known Allergies Allergy Verified 11/10/18 13:04 Home Medications Home Medications Medication Instructions Recorded Confirmed Type Breo Ellipta 1 puff INHALATION DAILY 06/20/18 11/10/18 History Oyster Shell Calcium-Vit D3 1 tab PO DAILY 06/20/18 11/10/18 History Xarelto 20 mg PO DAILY 06/20/18 11/10/18 History acetaminophen [Tylenol Extra 500 mg PO Q4 PRN 06/20/18 11/10/18 History Strength] budesonide [Pulmicort] 1 vial INHALATION BID 06/20/18 11/10/18 History diltiazem HCl [Cardizem CD] 120 mg PO DAILY 06/20/18 11/10/18 History diphenhydramine HCl [Banophen] 25 mg PO Q6 PRN 06/20/18 11/10/18 History donepezil [Aricept] 10 mg PO HS 06/20/18 11/10/18 History ipratropium-albuterol 3 ml INHALATION Q6 PRN 06/20/18 11/10/18 History loperamide 2 mg PO UD PRN 06/20/18 11/10/18 History memantine [Namenda] 5 mg PO DAILY 06/20/18 11/10/18 History metoprolol succinate [Toprol XL] 150 mg PO DAILY 06/20/18 11/10/18 History nystatin 1 applic TOPICAL TID PRN 06/20/18 11/10/18 History polyethylene glycol 3350 [Miralax] 17 g PO DAILY PRN 06/20/18 11/10/18 History sertraline [Zoloft] 50 mg PO DAILY 06/20/18 11/10/18 History lorazepam 0.5 mg PO UD PRN #15 tab 06/24/18 11/10/18 Rx potassium chloride [Klor-Con M20] 20 meq PO BID #60 tab 06/24/18 11/10/18 Rx inhalational spacing device #1 ea 10/24/18 11/10/18 History spironolactone 25 mg tablet 25 mg PO .Take 1 tablet daily #90 10/24/18 11/10/18 History tab wheelchair #1 ea 11/07/18 11/10/18 Rx metolazone 2.5 mg PO DAILY PRN 11/10/18 11/10/18 History torsemide 60 mg PO BID 11/10/18 11/10/18 History Patient History Medical History Urinary incontinence Tachycardia Symptomatic bradycardia Situational anxiety Pulmonary emphysema 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 Hypokalemia Edema Diastolic dysfunction Diastolic congestive heart failure Depression Dementia, in, senility Cardiac pacemaker AF (paroxysmal atrial fibrillation) Apnea, sleep Hypertension High cholesterol Alzheimers disease Asthma Heart disease Glaucoma Obesity Surgical History History of arthroscopic knee surgery History of permanent cardiac pacemaker placement History of umbilical hernia repair History of eye surgery Social History Preferred Language: Bengali Communication Ability: Impaired 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 Other Information That Helps Us Care for You: No Feels Safe at Home: Yes Safety Concerns: Feels Safe At This Time Smoking Status: Never smoker Hx Alcohol Use: No Hx Substance Use: No Review of Systems Review of Systems: Unobtainable due to cognitive status Physical Exam Physical Exam: She is alert and oriented x3. Mood affect appear normal. She answered all questions appropriately. Obese HEENT: Sclerae are anicteric. Pupils are equal and reactive to light and accommodation. Extraocular movements were intact. Neuro: Cranial nerves intact Neck: Examination of the submandibular region did not reveal any significant lymphadenopathy. Carotids are palpable bilaterally and free of bruits on auscultation. There was no evidence of jugular venous distention. The thyroid was not enlarged. Lungs: Lungs are clear to auscultation bilaterally. There are no rales wheezes or rhonchi. She has normal respiratory effort without use of accessory muscles. There is normal pulmonary excursion. Cardiac: The rhythm was regular. S1 and S2 were normal. There are no murmurs on examination. The PMI was not markedly displaced on palpation. Abdomen: The abdomen was soft and nontender. Obese Extremities: Patient has bilateral radial pulses that are equal in intensity. There is no evidence cyanosis or clubbing. Mild bilateral lower extremity edema. Skin: There are no rashes noted on examination today. Results & Data Vital Signs (Past 12 Hours) Vital Signs Temp Pulse Pulse Resp BP Pulse Ox 11/11/18 09:10 95 11/11/18 06:59 37.3 C 67 20 125/76 93 11/11/18 06:20 69 11/11/18 03:27 37.4 C 66 16 154/82 H 93 11/11/18 01:51 70 19 90 Laboratory Results Abnormal Lab Results 11/10/18 11/10/18 11/10/18 13:29 13:29 13:29 WBC 10.08 RBC 3.97 L Hgb 12.5 Hct 39.6 MCV 99.7 MCH 31.5 MCHC 31.6 L RDW Std Deviation 53.7 H RDW Coeff of Kerry 14.6 H Plt Count 179 MPV 10.6 H Immature Gran % (Auto) 0.8 Neut % (Auto) 72.8 Lymph % (Auto) 14.1 [place] % (Auto) 10.2 Eos % (Auto) 1.7 Baso % (Auto) 0.4 Immature Gran # (Auto) 0.08 H Neut # (Auto) 7.34 H Lymph # (Auto) 1.42 [place] # (Auto) 1.03 H Eos # (Auto) 0.17 Baso # (Auto) 0.04 PT 14.7 H INR 1.5 H APTT 34.5 H PTT Ratio 1.3 ABG pH ABG pCO2 ABG pO2 ABG HCO3 ABG O2 Saturation ABG Base Excess Tacho Test Barometric Pressure Oxygen Given Sodium 142 Potassium 4.4 Chloride 102 Carbon Dioxide 37 H Anion Gap 3.0 BUN 21 H Creatinine 1.15 Est Cr Clr Drug Dosing 45.9 Est GFR ( Amer) 49.9 Est GFR (Non-Af Amer) 43.0 BUN/Creatinine Ratio 17.9 Glucose 102 H Lactate Calcium 9.1 Magnesium 2.7 H Total Bilirubin 0.6 AST 23 ALT 18 Alkaline Phosphatase 66 Troponin I < 0.015 NT-Pro-B Natriuret Pep 784 Total Protein 7.7 Albumin 3.1 L Globulin 4.6 H Albumin/Globulin Ratio 0.7 L TSH 2.790 Urine Color Urine Appearance Urine pH Ur Specific Eclectic Urine Protein Urine Glucose (UA) Urine Ketones Urine Blood Urine Nitrite Urine Bilirubin Urine Urobilinogen Ur Leukocyte Esterase Urine WBC (Auto) Urine RBC (Auto) U Hyaline Cast (Auto) U Epithel Cells (Auto) Urine Bacteria (Auto) Nasal Screen MRSA (PCR) 11/10/18 11/10/18 11/10/18 13:29 14:05 14:50 WBC RBC Hgb Hct MCV MCH MCHC RDW Std Deviation RDW Coeff of Ekrry Plt Count MPV Immature Gran % (Auto) Neut % (Auto) Lymph % (Auto) [place] % (Auto) Eos % (Auto) Baso % (Auto) Immature Gran # (Auto) Neut # (Auto) Lymph # (Auto) [place] # (Auto) Eos # (Auto) Baso # (Auto) PT INR APTT PTT Ratio ABG pH 7.51 H* ABG pCO2 38 ABG pO2 166 H ABG HCO3 29 H ABG O2 Saturation 99.4 H ABG Base Excess 6.1 H Tacho Test Pos Barometric Pressure 734.5 Oxygen Given 2L Sodium Potassium Chloride Carbon Dioxide Anion Gap BUN Creatinine Est Cr Clr Drug Dosing Est GFR ( Amer) Est GFR (Non-Af Amer) BUN/Creatinine Ratio Glucose Lactate 1.3 Calcium Magnesium Total Bilirubin AST ALT Alkaline Phosphatase Troponin I NT-Pro-B Natriuret Pep Total Protein Albumin Globulin Albumin/Globulin Ratio TSH Urine Color Yellow Urine Appearance Clear Urine pH 8.0 H Ur Specific Eclectic 1.014 Urine Protein Negative Urine Glucose (UA) Negative Urine Ketones Negative Urine Blood Trace H Urine Nitrite Negative Urine Bilirubin Negative Urine Urobilinogen Negative Ur Leukocyte Esterase Negative Urine WBC (Auto) 0 Urine RBC (Auto) 5-10 H U Hyaline Cast (Auto) 0 U Epithel Cells (Auto) 10-20 H Urine Bacteria (Auto) Negative Nasal Screen MRSA (PCR) 11/10/18 11/11/18 11/11/18 18:45 06:37 06:37 WBC 8.97 RBC 3.85 L Hgb 12.1 Hct 38.8 MCV 100.8 H MCH 31.4 MCHC 31.2 L RDW Std Deviation 54.7 H RDW Coeff of Kerry 14.8 H Plt Count 173 MPV 10.3 Immature Gran % (Auto) 0.8 Neut % (Auto) 68.9 Lymph % (Auto) 17.1 [place] % (Auto) 11.3 Eos % (Auto) 1.2 Baso % (Auto) 0.7 Immature Gran # (Auto) 0.07 H Neut # (Auto) 6.19 Lymph # (Auto) 1.53 [place] # (Auto) 1.01 H Eos # (Auto) 0.11 Baso # (Auto) 0.06 PT INR APTT PTT Ratio ABG pH ABG pCO2 ABG pO2 ABG HCO3 ABG O2 Saturation ABG Base Excess Tacho Test Barometric Pressure Oxygen Given Sodium 143 Potassium 3.9 Chloride 103 Carbon Dioxide 35 H Anion Gap 5.0 BUN 18 Creatinine 1.09 Est Cr Clr Drug Dosing 47.2 Est GFR ( Amer) 53.2 Est GFR (Non-Af Amer) 45.9 BUN/Creatinine Ratio 17.0 Glucose 114 H Lactate Calcium 8.9 Magnesium 2.9 H Total Bilirubin AST ALT Alkaline Phosphatase Troponin I NT-Pro-B Natriuret Pep Total Protein Albumin Globulin Albumin/Globulin Ratio TSH Urine Color Urine Appearance Urine pH Ur Specific Eclectic Urine Protein Urine Glucose (UA) Urine Ketones Urine Blood Urine Nitrite Urine Bilirubin Urine Urobilinogen Ur Leukocyte Esterase Urine WBC (Auto) Urine RBC (Auto) U Hyaline Cast (Auto) U Epithel Cells (Auto) Urine Bacteria (Auto) Nasal Screen MRSA (PCR) Negative Diagnostic Findings Chest x-ray at admission reveals pulmonary vascular congestion Performed a complete device interrogation which revealed fairly for recent episode of extended atrial fibrillation. Overall ventricular rates are slightly elevated during periods of atrial fibrillation. Otherwise normal device function. Echocardiogram in 2017 revealed preserved LV systolic function with some biatrial dilation. No significant valvular heart disease. ECG Additional Comments: Normal sinus rhythm with occasional PACs (1) CHF (congestive heart failure) Heart failure chronicity: acute on chronic Heart failure type: unspecified Qualified Code(s): I50.9 - Heart failure, unspecified
--- NOTE | 2018-11-11 12:06 | Hospitalist Progress Note ---
Date of Service November 11, 2018 Assessment & Plan (1) Bacteremia due to Gram-positive bacteria: Presented with tachypnea and a temp noted at [facility] of 99.1 prior to arrival. BCxs drawn in ER now growing GPC in chains in 4/4 bottles Also had pulm edema vs infectious pneumonitis noted on CXR. Afebrile here, no leukocytosis. Has mild erythema of legs, cellulitis could be a source -start Vanco IV, Pharmacy to dose -consult ID -check ECHO for valvular vegetation, question if would need DEDRA? -will need at least 2 weeks of IV abx but also with pacer in place--> consider 4-6 weeks -eventually will need PICC line -follow BCxs and repeat BCXs which were drawn before IV abx started (2) Cellulitis: as above, mild erythema R>L legs, some chronic from LE edema but fdaughter noted them to be slightly more red on RLE on admission -treating with Vanco as above for cellulitis and bacteremia (3) Diastolic congestive heart failure: Presents with acute on chronic diastolic CHF suspected Presented with tachypnea, hypoxia, evidence of pulmonary edema on chest x-ray, and weight is elevated in the ER compared to previous. She has been getting daily weights and PRN metolazone at the [facility] [place] [facility], but daughter does report that the patient will be fed ham and processed cheese crackers at times. Her weight has steadily gone up over the past several months. Troponin negative upon admission, proBNP is within normal limits at 784 although it is elevated from previous Chest x-ray findings could be consistent with infectious pneumonitis as per radiology and is now on Vanco as above for bacteremia which would cover for a Strep PNA Tachypnea resolved, weight is down 4 kg and I/O net neg 1.9L since admission Improved Seen by Cardiology-appreciate consult Has had some rapid Afib which may have contributed -continue telemetry monitoring -received Lasix 60 mg IV every 12 hours and now will revert back to po torsemide 60 bid -Strict I's and O's, low-sodium diet, daily weights -Follow BMP and replace potassium as needed -continue home Spironolactone -Continue good blood pressure control and rate control with metoprolol -continue prn metolazone (4) AF (paroxysmal atrial fibrillation): Currently in normal sinus rhythm upon admission but had some intermittent brief Afib episodes to the 130s sine then 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 once daily, continue diltiazem 120 mg once daily -Continue Xarelto but will renally dose at 15 mg once daily -Follow on telemetry (5) Apnea, sleep: Continue CPAP nightly w/ 2L (6) Asthma: Daughter reports wheezing noted at home. No wheezing currently but is on bronchodilator nebulizer treatments -Continue scheduled albuterol nebs while here but no steroids necessary -Continue budesonide neb twice daily (7) Cardiac pacemaker: Placed for tachybradycardia syndrome -Followed by cardiology (8) Dementia, in, senility: Stable, does eat her meals but is not able to carry on simple conversations. She does recognize her family members -Continue supportive care -Continue donepezil 10 mg daily and memantine 5 mg daily (9) Depression: Stable -Continue sertraline 50 mill grams daily (10) High cholesterol: It does not appear that she is currently on any medication for this (11) Hypertension: Controlled -Continue Toprol, diltiazem, diuretics as above (12) Obesity: BMI 42.7 is noted (13) Acute metabolic encephalopathy: Mild alteration in mental status as per daughter on admission, likely rela kerry to bacteremia/infection, and hypoxia -seems improved today -continue treatment for infection, CHF (14) Pneumonitis: as above (15) DVT prophylaxis: Xarelto Disposition-continue on telemetry unit DNR/DNI as discussed with her daughter, Debbi, at the bedside who is her healthcare power of civil rights attorney Discussed her care with daughter at length on phone today Subjective Pt pleasantly confused this AM. Says yes when asked if feeling better. Overall looks less tachypneic. Blood cultures positive overnight, remains afebrile Tele with NSR, intermittent brief spells of Afib to the 130s, and paced rhythm. I discussed the case with Cardiology on the phone Review of Systems Review of Systems: Unobtainable due to cognitive status Physical Exam Constitutional: + morbidly obese; no acute distress Eyes: PERRL, conjunctivae normal, anicteric sclerae Neck: trachea midline, no thyromegaly Respiratory: Auscultation: + diminished lung sounds (Throughout due to obese body habitus); no crackles (resolved) and no wheezes Cardiovascular: Rate/Rhythm: regular rate and regular rhythm Heart Sounds: no murmur Extremities: + edema (1+ pitting edema of the right leg to the knee and trace pitting edema of the left leg to the knee) Gastrointestinal (Abdomen): normal bowel sounds, soft, nontender, no hepatosplenomegaly Musculoskeletal: Extremities: extremities normal to inspection; no cyanosis and no clubbing Skin: + erythema (Mild chronic appearing erythema of the legs bilaterally); no rashes Neurologic: moves all extremities and awake; no focal motor deficits Psychiatric: Orientation: alert; + not oriented x 3 Genitourinary: no vaginal lesions, no adnexal mass ([place] catheter in place) Results & Data Vital Signs (Past 12 Hours) Vital Signs Temp Pulse Pulse Pulse Resp BP BP 11/11/18 11:41 37.5 C 63 22 110/67 11/11/18 09:10 11/11/18 06:59 37.3 C 67 20 125/76 11/11/18 06:20 69 11/11/18 03:27 37.4 C 66 16 154/82 H 11/11/18 01:51 70 19 Pulse Ox 11/11/18 11:41 91 11/11/18 09:10 95 11/11/18 06:59 93 11/11/18 06:20 11/11/18 03:27 93 11/11/18 01:51 90 Laboratory Results 11/11/18 11/11/18 11/10/18 Range/Units 06:37 06:37 18:45 WBC 8.97 (4.8-10.8) K/uL RBC 3.85 L (4.2-5.4) M/uL Hgb 12.1 (12.0-16.0) g/dL Hct 38.8 (37-47) % MCV 100.8 H (80-100) fL MCH 31.4 (25-34) pg MCHC 31.2 L (32-36) g/dL RDW Std Deviation 54.7 H (36.4-46.3) fL RDW Coeff of [place] 14.8 H (11.5-14.5) % Plt Count 173 (130-400) K/uL MPV 10.3 (7.4-10.4) fL Immature Gran % (Auto) 0.8 % Neut % (Auto) 68.9 % Lymph % (Auto) 17.1 % [place] % (Auto) 11.3 % Eos % (Auto) 1.2 % Baso % (Auto) 0.7 % Immature Gran # (Auto) 0.07 H (0.00-0.02) K/uL Neut # (Auto) 6.19 (1.4-6.5) K/uL Lymph # (Auto) 1.53 (1.2-3.4) K/uL [place] # (Auto) 1.01 H (0.11-0.59) K/uL Eos # (Auto) 0.11 (0-0.5) K/uL Baso # (Auto) 0.06 (0-0.2) K/uL PT (9.0-12.0) Seconds INR (0.9-1.1) APTT (21.0-31.0) Seconds PTT Ratio ABG pH (7.35-7.45) ABG pCO2 (35-46) mmHg ABG pO2 (80-95) mm/Hg ABG HCO3 (19-24) mmol/L ABG O2 Saturation (90-95) % ABG Base Excess (-9-1.8) mEq/L [place] Test (Pos) Barometric Pressure mm/Hg Oxygen Given Sodium 143 (136-145) mmol/L Potassium 3.9 (3.5-5.1) mmol/L Chloride 103 (98-107) mmol/L Carbon Dioxide 35 H (21-32) mmol/L Anion Gap 5.0 (3-11) BUN 18 (7-18) mg/dl Creatinine 1.09 (0.6-1.2) mg/dl Est Cr Clr Drug Dosing 47.2 ml/min Est GFR ( Amer) 53.2 Est GFR (Non-Af Amer) 45.9 BUN/Creatinine Ratio 17.0 (10-20) Glucose 114 H (70-99) mg/dl Lactate (0.4-2.0) mmol/L Calcium 8.9 (8.5-10.1) mg/dl Magnesium 2.9 H (1.8-2.4) mg/dl Total Bilirubin (0.2-1) mg/dl AST (15-37) U/L ALT (12-78) U/L Alkaline Phosphatase (45-117) U/L Troponin I (0-0.045) ng/ml NT-Pro-B Natriuret Pep (0-1800) pg/ml Total Protein (6.4-8.2) gm/dl Albumin (3.4-5.0) gm/dl Globulin (2.5-4.0) gm/dl Albumin/Globulin Ratio (0.9-2) TSH (0.300-4.500) uIu/ml Urine Color Urine Appearance (Clear) Urine pH (4.5-7.5) Ur Specific [place] (1.000-1.030) Urine Protein (Negative) Urine Glucose (UA) (Negative) Urine Ketones (Negative) Urine Blood (Negative) Urine Nitrite (Negative) Urine Bilirubin (Negative) Urine Urobilinogen (Negative) Ur Leukocyte Esterase (Negative) Urine WBC (Auto) (0-5) /hpf Urine RBC (Auto) (0-4) /hpf U Hyaline Cast (Auto) (0-5) /lpf U Epithel Cells (Auto) (0-5) /lpf Urine Bacteria (Auto) (Negative) Nasal Screen MRSA (PCR) Negative (Negative) 11/10/18 11/10/18 11/10/18 Range/Units 14:50 14:05 13:29 WBC (4.8-10.8) K/uL RBC (4.2-5.4) M/uL Hgb (12.0-16.0) g/dL Hct (37-47) % MCV (80-100) fL MCH (25-34) pg MCHC (32-36) g/dL RDW Std Deviation (36.4-46.3) fL RDW Coeff of [place] (11.5-14.5) % Plt Count (130-400) K/uL MPV (7.4-10.4) fL Immature Gran % (Auto) % Neut % (Auto) % Lymph % (Auto) % [place] % (Auto) % Eos % (Auto) % Baso % (Auto) % Immature Gran # (Auto) (0.00-0.02) K/uL Neut # (Auto) (1.4-6.5) K/uL Lymph # (Auto) (1.2-3.4) K/uL [place] # (Auto) (0.11-0.59) K/uL Eos # (Auto) (0-0.5) K/uL Baso # (Auto) (0-0.2) K/uL PT (9.0-12.0) Seconds INR (0.9-1.1) APTT (21.0-31.0) Seconds PTT Ratio ABG pH 7.51 H* (7.35-7.45) ABG pCO2 38 (35-46) mmHg ABG pO2 166 H (80-95) mm/Hg ABG HCO3 29 H (19-24) mmol/L ABG O2 Saturation 99.4 H (90-95) % ABG Base Excess 6.1 H (-9-1.8) mEq/L [place] Test Pos (Pos) Barometric Pressure 734.5 mm/Hg Oxygen Given 2L Sodium (136-145) mmol/L Potassium (3.5-5.1) mmol/L Chloride (98-107) mmol/L Carbon Dioxide (21-32) mmol/L Anion Gap (3-11) BUN (7-18) mg/dl Creatinine (0.6-1.2) mg/dl Est Cr Clr Drug Dosing ml/min Est GFR ( Amer) Est GFR (Non-Af Amer) BUN/Creatinine Ratio (10-20) Glucose (70-99) mg/dl Lactate 1.3 (0.4-2.0) mmol/L Calcium (8.5-10.1) mg/dl Magnesium (1.8-2.4) mg/dl Total Bilirubin (0.2-1) mg/dl AST (15-37) U/L ALT (12-78) U/L Alkaline Phosphatase (45-117) U/L Troponin I (0-0.045) ng/ml NT-Pro-B Natriuret Pep (0-1800) pg/ml Total Protein (6.4-8.2) gm/dl Albumin (3.4-5.0) gm/dl Globulin (2.5-4.0) gm/dl Albumin/Globulin Ratio (0.9-2) TSH (0.300-4.500) uIu/ml Urine Color Yellow Urine Appearance Clear (Clear) Urine pH 8.0 H (4.5-7.5) Ur Specific [place] 1.014 (1.000-1.030) Urine Protein Negative (Negative) Urine Glucose (UA) Negative (Negative) Urine Ketones Negative (Negative) Urine Blood Trace H (Negative) Urine Nitrite Negative (Negative) Urine Bilirubin Negative (Negative) Urine Urobilinogen Negative (Negative) Ur Leukocyte Esterase Negative (Negative) Urine WBC (Auto) 0 (0-5) /hpf Urine RBC (Auto) 5-10 H (0-4) /hpf U Hyaline Cast (Auto) 0 (0-5) /lpf U Epithel Cells (Auto) 10-20 H (0-5) /lpf Urine Bacteria (Auto) Negative (Negative) Nasal Screen MRSA (PCR) (Negative) 11/10/18 11/10/18 11/10/18 Range/Units 13:29 13:29 13:29 WBC 10.08 (4.8-10.8) K/uL RBC 3.97 L (4.2-5.4) M/uL Hgb 12.5 (12.0-16.0) g/dL Hct 39.6 (37-47) % MCV 99.7 (80-100) fL MCH 31.5 (25-34) pg MCHC 31.6 L (32-36) g/dL RDW Std Deviation 53.7 H (36.4-46.3) fL RDW Coeff of [place] 14.6 H (11.5-14.5) % Plt Count 179 (130-400) K/uL MPV 10.6 H (7.4-10.4) fL Immature Gran % (Auto) 0.8 % Neut % (Auto) 72.8 % Lymph % (Auto) 14.1 % [place] % (Auto) 10.2 % Eos % (Auto) 1.7 % Baso % (Auto) 0.4 % Immature Gran # (Auto) 0.08 H (0.00-0.02) K/uL Neut # (Auto) 7.34 H (1.4-6.5) K/uL Lymph # (Auto) 1.42 (1.2-3.4) K/uL [place] # (Auto) 1.03 H (0.11-0.59) K/uL Eos # (Auto) 0.17 (0-0.5) K/uL Baso # (Auto) 0.04 (0-0.2) K/uL PT 14.7 H (9.0-12.0) Seconds INR 1.5 H (0.9-1.1) APTT 34.5 H (21.0-31.0) Seconds PTT Ratio 1.3 ABG pH (7.35-7.45) ABG pCO2 (35-46) mmHg ABG pO2 (80-95) mm/Hg ABG HCO3 (19-24) mmol/L ABG O2 Saturation (90-95) % ABG Base Excess (-9-1.8) mEq/L [place]acho Test (Pos) Barometric Pressure mm/Hg Oxygen Given Sodium 142 (136-145) mmol/L Potassium 4.4 (3.5-5.1) mmol/L Chloride 102 (98-107) mmol/L Carbon Dioxide 37 H (21-32) mmol/L Anion Gap 3.0 (3-11) BUN 21 H (7-18) mg/dl Creatinine 1.15 (0.6-1.2) mg/dl Est Cr Clr Drug Dosing 45.9 ml/min Est GFR ( Amer) 49.9 Est GFR (Non-Af Amer) 43.0 BUN/Creatinine Ratio 17.9 (10-20) Glucose 102 H (70-99) mg/dl Lactate (0.4-2.0) mmol/L Calcium 9.1 (8.5-10.1) mg/dl Magnesium 2.7 H (1.8-2.4) mg/dl Total Bilirubin 0.6 (0.2-1) mg/dl AST 23 (15-37) U/L ALT 18 (12-78) U/L Alkaline Phosphatase 66 (45-117) U/L Troponin I < 0.015 (0-0.045) ng/ml NT-Pro-B Natriuret Pep 784 (0-1800) pg/ml Total Protein 7.7 (6.4-8.2) gm/dl Albumin 3.1 L (3.4-5.0) gm/dl Globulin 4.6 H (2.5-4.0) gm/dl Albumin/Globulin Ratio 0.7 L (0.9-2) TSH 2.790 (0.300-4.500) uIu/ml Urine Color Urine Appearance (Clear) Urine pH (4.5-7.5) Ur Specific [place] (1.000-1.030) Urine Protein (Negative) Urine Glucose (UA) (Negative) Urine Ketones (Negative) Urine Blood (Negative) Urine Nitrite (Negative) Urine Bilirubin (Negative) Urine Urobilinogen (Negative) Ur Leukocyte Esterase (Negative) Urine WBC (Auto) (0-5) /hpf Urine RBC (Auto) (0-4) /hpf U Hyaline Cast (Auto) (0-5) /lpf U Epithel Cells (Auto) (0-5) /lpf Urine Bacteria (Auto) (Negative) Nasal Screen MRSA (PCR) (Negative) BCxs 2/2 with GPC in chains PG Care Time/CCT Total # of Minutes Spent Total Time Spent with Patient: Total time spent is greater than 50% in grievance and appeals coordinator rdination of care (as documented) at patient's floor/unit and/or counseling patient: (1) Diastolic congestive heart failure Heart failure chronicity: acute on chronic Qualified Code(s): I50.33 - Acute on chronic diastolic (congestive) heart failure (2) Hypertension Hypertension type: essential hypertension Qualified Code(s): I10 - Essential (primary) hypertension
--- NOTE | 2018-11-11 14:01 | Pharmacy Report ---
Pharmacy Abx Dose Short Note - Date of Service November 11, 2018 - Assessment & Plan A/P Pt is an 88yo F growing GPC in 4/4 blood bottles. No h/o MDR organisms. ECHO ordered. CXR/ausculatory findings consistent with infectious pneumonitis. Pt's population p'kinetics: t1/2=16, ke=0.0434. Pt is obesity stage III: BMI >40, indicative of vancomycin accumulation. Vancomycin * Vanco loading dose 2750mg (22mg/kg) IV x1 to quickly achieve a peak * then vancomycin 1500mg (12mg/kg) q18 * goal trough: 15-20mcg/mL * Trough ordered for 11/14/18 @0730, indicative of [facility] will continue to follow and will adjust dose/frequency as necessary. Thank you.
[2018-11-11] MEDS: TORSEMIDE 20 MG TAB PO SCH (15:11)
[2018-11-11] MEDS ORDERED: METOPROLOL TARTRATE 50 MG TAB PO STA (15:51)
[2018-11-11] MEDS ORDERED: METOPROLOL TARTRATE 1 MG/ML VIAL IV STA (17:42)
[2018-11-11] MEDS: DONEPEZIL HCL 10 MG TAB PO SCH (19:36)
[2018-11-11] MEDS ORDERED: SODIUM CHLORIDE 0.9% 1000ML 250 ML IV ONE (19:53)
[2018-11-11] MEDS: SODIUM CHLORIDE 0.9% 1000ML 1,000 ML IV SCH (20:11)
[2018-11-11] MEDS ORDERED: SODIUM CHLORIDE 0.9% 250 ML IV ONE (21:31)
[2018-11-12] MEDS: ALBUT/IPRATROP 3MG/0.5MG NEB 3 ML VIAL INH SCH ×5 (01:04→19:16)
[2018-11-12] MEDS ORDERED: VANCOMYCIN HCL 1,500 MG in SODIUM CHLORIDE 0.9% 500 ML IV SCH (02:00)
[2018-11-12 06:37] LABS: Basophils # (auto) 0.06 K/uL (0-0.2); Basophils % (auto) 0.6 %; Eosinophils # (auto) 0.26 K/uL (0-0.5); Eosinophils % (auto) 2.7 %; Hematocrit (blood only) 39.9 % (37-47); Hemoglobin 12.7 g/dL (12.0-16.0); Lymphocytes # (auto) 2.63 K/uL (1.2-3.4); Lymphocytes % (auto) 27.6 %; Mean Corpuscular Hgb Conc 31.8 g/dL (32-36); Mean Corpuscular Volume 100.8 fL (80-100); Mean Platelet Volume 10.5 fL (7.4-10.4); Monocytes # (auto) 1.13 K/uL (0.11-0.59); Monocytes % (auto) 11.8 %; Neutrophils # (auto) 5.36 K/uL (1.4-6.5); Neutrophils % (auto) 56.3 %; Platelet Count 166 K/uL (130-400); RDW Coefficient of Variation 14.8 % (11.5-14.5); Red Blood Count 3.96 M/uL (4.2-5.4); White Blood Count 9.54 K/uL (4.8-10.8)
[2018-11-12] MEDS: BUDESONIDE 0.5 MG/2 ML VIAL (PULMICORT) INH SCH ×2 (06:59→19:16)
[2018-11-12 07:11] LABS: BUN Creatinine Ratio 17.3 (10-20); Calcium 8.3 mg/dl (8.5-10.1); Creatinine Clr Calc Pharmacy 48.1 ml/min; Est GFR (African American) 54.4; Magnesium 2.5 mg/dl (1.8-2.4); Potassium 3.5 mmol/L (3.5-5.1)
[2018-11-12] MEDS: METOPROLOL SUCC 50MG EXT REL TAB PO SCH (08:37)
[2018-11-12] MEDS: SPIRONOLACTONE 25 MG TAB PO SCH (08:37)
[2018-11-12] MEDS: TORSEMIDE 20 MG TAB PO SCH ×2 (08:38→16:27)
[2018-11-12] MEDS: POTASSIUM CHLORIDE 20 MEQ TABCR PO SCH ×2 (08:38→20:29)
[2018-11-12] MEDS: MEMANTINE HCL 5 MG TAB PO SCH (08:38)
[2018-11-12] MEDS: dilTIAZem HCL 120 MG CAPCR PO SCH (08:38)
[2018-11-12] MEDS: SERTRALINE HCL 50 MG TABLET PO SCH (08:38)
[2018-11-12] MEDS: APIXABAN 5 MG TABLET PO SCH ×2 (08:38→20:29)
[2018-11-12] MEDS: SODIUM CHLORIDE 0.9% 1000ML 1,000 ML IV SCH (08:40)
[2018-11-12] MEDS ORDERED: POTASSIUM CHLORIDE 20 MEQ TABCR PO STA (09:48)
--- NOTE | 2018-11-12 13:22 | Infectious Disease Progress Nt ---
Date of Service November 12, 2018 Assessment & Plan (1) Gram positive sepsis: will change to dapto pending additional micro results. will repeat blood cultures x 2. UA negative, cxr negative, ? source. Concern for pacemaker -TTE but may need DEDRA due to morbid obesity, persisent + cultures and pacemaker, will likely require prolonged course of IV abx. will follow. Subjective pt more comfortable today. resting comfortably in bed but remains confused. Blood cultures growing Enterococcus, repeat cultures 2/4 bottle gpc in chains. remains on vanco., tolerating well. had fever 38.4 overnight, afebrile currently, denies fevers/chills. no abd pain, no cp, sob. wbc 9.5, creat normal. Echo without vegetation. Review of Systems Review of Systems: All systems reviewed & are unremarkable except as noted in HPI & below Physical Exam Constitutional: WD/WN, vitals as above + morbidly obese Eyes: PERRL, conjunctivae normal, anicteric sclerae ENMT: external ear and nose normal, oropharynx normal Neck: normal visual inspection Respiratory: normal respiratory effort, lungs clear to auscultation Auscultation: + diminished lung sounds Cardiovascular: RRR, no murmur, no edema Gastrointestinal (Abdomen): normal bowel sounds, soft, nontender, no hepatosplenomegaly Musculoskeletal: no cyanosis or clubbing, extremities motor strength 5/5 Skin: no rashes, warm and dry Psychiatric: Orientation: alert Affect: + anxious affect Results & Data Vital Signs (Past 12 Hours) Vital Signs Temp Pulse Pulse Pulse Resp BP Pulse Ox 11/12/18 11:52 36.8 C 74 18 118/63 96 11/12/18 07:06 36.4 C L 64 20 117/63 94 11/12/18 07:00 93 H 93 H 20 94 11/12/18 04:22 36.4 C L 106 H 20 110/68 93 11/12/18 01:57 94 H 16 98 Laboratory Results Microbiology 11/11/18 10:56 Blood Aerobic Blood Culture - Preliminary No growth in Aerobic bottle after 24 hours. 11/11/18 10:56 Blood Anaerobic Blood Culture - Preliminary Gram positive cocci in chains 11/11/18 10:59 Blood Aerobic Blood Culture - Preliminary Gram positive cocci in chains 11/11/18 10:59 Blood Anaerobic Blood Culture - Preliminary No growth in Anaerobic bottle after 24 hours. 11/10/18 13:34 Blood Aerobic Blood Culture - Preliminary Enterococcus species 11/10/18 13:34 Blood Anaerobic Blood Culture - Preliminary Gram positive cocci 11/10/18 13:29 Blood Aerobic Blood Culture - Preliminary Enterococcus species 11/10/18 13:29 Blood Anaerobic Blood Culture - Preliminary Enterococcus species
--- NOTE | 2018-11-12 13:33 | Hospitalist Progress Note ---
Date of Service November 12, 2018 Assessment & Plan (1) Bacteremia due to Gram-positive bacteria: Presented with tachypnea and a temp noted at [facility] of 99.1 prior to arrival. BCxs drawn in ER now growing GPC in chains in 4/4 bottles--> Enterococcus species identified today Repeat BCxs also with GPC but were drawn prior to getting abx Also had pulm edema vs infectious pneumonitis noted on CXR. Afebrile here, no leukocytosis. Has mild erythema of legs, cellulitis could be a source--> leg erythema now much improved -dc Vanco IV, start Dapto as per ID recommendations -consult ID appreciated - ECHO negative for valvular vegetation, question if would need DEDRA? Not sure if necessary due to comorbid conditions, also has pacer in place -will likely just treat with 4-6 weeks of IV abx -eventually will need PICC line or US-guided peripheral IV -follow all BCxs (2) Cellulitis: as above, mild erythema R>L legs now much improved, some chronic from LE edema but daughter noted them to be slightly more red on RLE on admission -treating with abx as above for cellulitis and bacteremia (3) Diastolic congestive heart failure: Presents with acute on chronic diastolic CHF suspected Presented with tachypnea, hypoxia, evidence of pulmonary edema on chest x-ray, and weight is elevated in the ER compared to previous. She has been getting daily weights and PRN metolazone at the personal assisted, but daughter does report that the patient will be fed ham and processed cheese crackers at times. Her weight has steadily gone up over the past several months. Troponin negative upon admission, proBNP is within normal limits at 784 although it is elevated from previous Chest x-ray findings could be consistent with infectious pneumonitis as per radiology and was on Vanco as above for bacteremia which would cover for a Strep PNA. Now on Dapto which does not give good coverage for pulm source but seems to be more likely source is cellulitis Tachypnea resolved, weight is stable and I/O net neg 0.9L since admission Improved Seen by Cardiology-appreciate consult Has had some rapid Afib which may have contributed -continue telemetry monitoring -received Lasix 60 mg IV every 12 hours and then reverted back to po torsemide 60 bid -actually received genrle NS overnight the night of 11/11 for hypotension and fever-will now dc IVFs -Strict I's and O's, low-sodium diet, daily weights -Follow BMP and replace potassium -continue home Spironolactone -Continue good blood pressure control and rate control with metoprolol -continue prn metolazone (4) AF (paroxysmal atrial fibrillation): Was in normal sinus rhythm upon admission but had some intermittent brief Afib episodes to the 130s. Then was in sustained Afib with rates in 120s-130s for over 12 hours, did not respond at all to extra IV lopressor or extra beta marquise -Spontaneously converted on AM of 11/12. Has pacemaker in place for tachybradycardia syndrome-Cardio made adjustments here to atrial preference pacing to reduce tachycardia -Cardio increased dose of Toprol-XL to 200 mg p.o. once daily, continue diltiazem 120 mg once daily -Cardio changed her from Xarelto to Eliquis 5mg bid -Follow on telemetry (5) Apnea, sleep: Continue CPAP nightly w/ 2L (6) Asthma: Daughter reports wheezing noted at home. No wheezing currently but is on bronchodilator nebulizer treatments -Continue scheduled albuterol nebs while here but no steroids necessary -Continue budesonide neb twice daily (7) Cardiac pacemaker: Placed for tachybradycardia syndrome -Followed by cardiology (8) Dementia, in, senility: Stable, does eat her meals but is not able to carry on simple conversations. She does recognize her family members -Continue supportive care -Continue donepezil 10 mg daily and memantine 5 mg daily (9) Depression: Stable -Continue sertraline 50 mg daily (10) High cholesterol: It does not appear that she is currently on any medication for this (11) Hypertension: Controlled, had hypotension with fever on evening of 11/11, responded to gentle IVFs -Continue Toprol, diltiazem, diuretics as above (12) Obesity: BMI 42.7 is noted (13) Acute metabolic encephalopathy: Mild alteration in mental status as per daughter on admission, likely related to bacteremia/infection, and hypoxia -seems improved now -continue treatment for infection, CHF (14) Pneumonitis: as above , likely ruled out (15) DVT prophylaxis: Eliquis Disposition-continue on telemetry unit DNR/DNI as discussed with her daughter, Debbi, at the bedside who is her healthcare power of ticket chopper assembler Discussed her care with daughter at length today Subjective Pt feels better today, denies any complaints, denies SOB or abd pain. Converted back to NSR at 11:30 today. Was hypotensive overnight and had a fever, was given gentle IVFs. Review of Systems Review of Systems: All systems reviewed & are unremarkable except as noted in HPI & below Physical Exam Constitutional: + morbidly obese; no acute distress Eyes: PERRL, conjunctivae normal, anicteric sclerae Neck: trachea midline, no thyromegaly Respiratory: Auscultation: + diminished lung sounds (Throughout due to obese body habitus) and + crackles (mild, at bases); no wheezes Cardiovascular: Rate/Rhythm: regular rate and regular rhythm Heart Sounds: no murmur Extremities: + edema (+ pitting edema of bilat LEs, improved) Gastrointestinal (Abdomen): normal bowel sounds, soft, nontender, no hepatosplenomegaly Musculoskeletal: Extremities: extremities normal to inspection; no cyanosis and no clubbing Skin: + erythema (Mild erythema of the legs bilaterally improved from previous); no rashes Neurologic: moves all extremities and awake; no focal motor deficits Psychiatric: Orientation: alert; + not oriented x 3 Results & Data Vital Signs (Past 12 Hours) Vital Signs Temp Pulse Pulse Pulse Resp BP Pulse Ox 11/12/18 11:52 36.8 C 74 18 118/63 96 11/12/18 07:06 36.4 C L 64 20 117/63 94 11/12/18 07:00 93 H 93 H 20 94 11/12/18 04:22 36.4 C L 106 H 20 110/68 93 11/12/18 01:57 94 H 16 98 Laboratory Results 11/12/18 11/12/18 Range/Units 05:57 05:57 WBC 9.54 (4.8-10.8) K/uL RBC 3.96 L (4.2-5.4) M/uL Hgb 12.7 (12.0-16.0) g/dL Hct 39.9 (37-47) % MCV 100.8 H (80-100) fL MCH 32.1 (25-34) pg MCHC 31.8 L (32-36) g/dL RDW Std Deviation 55.0 H (36.4-46.3) fL RDW Coeff of [place] 14.8 H (11.5-14.5) % Plt Count 166 (130-400) K/uL MPV 10.5 H (7.4-10.4) fL Immature Gran % (Auto) 1.0 % Neut % (Auto) 56.3 % Lymph % (Auto) 27.6 % [place] % (Auto) 11.8 % Eos % (Auto) 2.7 % Baso % (Auto) 0.6 % Immature Gran # (Auto) 0.10 H (0.00-0.02) K/uL Neut # (Auto) 5.36 (1.4-6.5) K/uL Lymph # (Auto) 2.63 (1.2-3.4) K/uL [place] # (Auto) 1.13 H (0.11-0.59) K/uL Eos # (Auto) 0.26 (0-0.5) K/uL Baso # (Auto) 0.06 (0-0.2) K/uL Sodium 145 (136-145) mmol/L Potassium 3.5 (3.5-5.1) mmol/L Chloride 108 H (98-107) mmol/L Carbon Dioxide 32 (21-32) mmol/L Anion Gap 6.0 (3-11) BUN 19 H (7-18) mg/dl Creatinine 1.07 (0.6-1.2) mg/dl Est Cr Clr Drug Dosing 48.1 ml/min Est GFR ( Amer) 54.4 Est GFR (Non-Af Amer) 47.0 BUN/Creatinine Ratio 17.3 (10-20) Glucose 106 H (70-99) mg/dl Calcium 8.3 L (8.5-10.1) mg/dl Magnesium 2.5 H (1.8-2.4) mg/dl PG Care Time/CCT Total # of Minutes Spent Total Time Spent with Patient: Total time spent is greater than 50% in coordination of care (as documented) at patient's floor/unit and/or counseling patient: (1) Diastolic congestive heart failure Heart failure chronicity: acute on chronic Qualified Code(s): I50.33 - Acute on chronic diastolic (congestive) heart failure (2) Hypertension Hypertension type: essential hypertension Qualified Code(s): I10 - Essential (primary) hypertension
[2018-11-12] MEDS: DAPTOmycin 500 MG in SYRINGE 0 ML IV SCH (14:16)
--- NOTE | 2018-11-12 17:08 | Cardiology Progress Note ---
Date of Service November 12, 2018 Assessment & Plan (1) CHF (congestive heart failure): Her volume status is difficult to assess, but she does not appear overtly tachypneic. Her lung examination is relatively benign. I think we can continue her usual outpatient medical regimen and monitor volume status closely. (2) AF (paroxysmal atrial fibrillation): She did transition back into atrial fibrillation yesterday afternoon. To continue has some high ventricular rates in till conversion this morning. I increased her metoprolol. We will see if she has additional high ventricular rates while she is an inpatient. We could also increase her diltiazem if necessary. (3) Cardiac pacemaker: Normal function. Atrial preference pacing activated yesterday. (4) Bacteremia due to Gram-positive bacteria: Now growing Enterococcus. Antibiotic regimen switched. Awaiting final identification. Subjective This morning the patient did not provide any meaningful history. She did not endorse any specific complaints such as pain or breathing difficulty. Review of Systems Review of Systems: Unobtainable due to cognitive status Physical Exam Physical Exam: She was easily arousable. She did that to questions but did not generally know the answers to any questions. HEENT: Sclerae are anicteric. Pupils are equal and reactive to light and accommodation. Extraocular movements were intact. Neuro: Cranial nerves intact Lungs: Lungs are clear to auscultation bilaterally. There are no rales wheezes or rhonchi. She has normal respiratory effort without use of accessory muscles. There is normal pulmonary excursion. Cardiac: The rhythm was regular. S1 and S2 were normal. There are no murmurs on examination. The PMI was not markedly displaced on palpation. Chest: Device implantation site without evidence of erythema, tenderness or swelling. Results & Data Vital Signs (Past 12 Hours) Vital Signs Temp Pulse Pulse Resp BP Pulse Ox 11/12/18 16:02 36.7 C 57 L 18 111/70 93 11/12/18 14:05 62 18 92 11/12/18 11:52 36.8 C 74 18 118/63 96 11/12/18 07:06 36.4 C L 64 20 117/63 94 11/12/18 07:00 93 H 93 H 20 94 Laboratory Results Abnormal Lab Results 11/12/18 11/12/18 05:57 05:57 WBC 9.54 RBC 3.96 L Hgb 12.7 Hct 39.9 MCV 100.8 H MCH 32.1 MCHC 31.8 L RDW Std Deviation 55.0 H RDW Coeff of Kerry 14.8 H Plt Count 166 MPV 10.5 H Immature Gran % (Auto) 1.0 Neut % (Auto) 56.3 Lymph % (Auto) 27.6 [place] % (Auto) 11.8 Eos % (Auto) 2.7 Baso % (Auto) 0.6 Immature Gran # (Auto) 0.10 H Neut # (Auto) 5.36 Lymph # (Auto) 2.63 [place] # (Auto) 1.13 H Eos # (Auto) 0.26 Baso # (Auto) 0.06 Sodium 145 Potassium 3.5 Chloride 108 H Carbon Dioxide 32 Anion Gap 6.0 BUN 19 H Creatinine 1.07 Est Cr Clr Drug Dosing 48.1 Est GFR ( Amer) 54.4 Est GFR (Non-Af Amer) 47.0 BUN/Creatinine Ratio 17.3 Glucose 106 H Calcium 8.3 L Magnesium 2.5 H (1) CHF (congestive heart failure) Heart failure chronicity: acute on chronic Heart failure type: unspecified Qualified Code(s): I50.9 - Heart failure, unspecified
[2018-11-12] MEDS: DONEPEZIL HCL 10 MG TAB PO SCH (20:29)
[2018-11-13] MEDS: ALBUT/IPRATROP 3MG/0.5MG NEB 3 ML VIAL INH SCH ×4 (01:24→19:20)
[2018-11-13 06:21] LABS: Basophils # (auto) 0.04 K/uL (0-0.2); Basophils % (auto) 0.5 %; Eosinophils # (auto) 0.33 K/uL (0-0.5); Eosinophils % (auto) 3.7 %; Hematocrit (blood only) 39.1 % (37-47); Hemoglobin 12.3 g/dL (12.0-16.0); Immature Granulocytes # (auto) 0.11 K/uL (0.00-0.02); Immature Granulocytes % (auto) 1.2 %; Lymphocytes % (auto) 23.6 %; Mean Corpuscular Hgb Conc 31.5 g/dL (32-36); Mean Platelet Volume 10.5 fL (7.4-10.4); Monocytes # (auto) 0.87 K/uL (0.11-0.59); Monocytes % (auto) 9.8 %; Neutrophils # (auto) 5.43 K/uL (1.4-6.5); Neutrophils % (auto) 61.2 %; Platelet Count 167 K/uL (130-400); RDW Coefficient of Variation 14.7 % (11.5-14.5); RDW Standard Deviation 53.5 fL (36.4-46.3); Red Blood Count 3.95 M/uL (4.2-5.4); White Blood Count 8.88 K/uL (4.8-10.8)
[2018-11-13 06:55] LABS: BUN Creatinine Ratio 17.8 (10-20); Calcium 8.7 mg/dl (8.5-10.1); Creatinine Clr Calc Pharmacy 44.6 ml/min; Est GFR (African American) 57.7; Est GFR (Non-African American) 49.8; Potassium 3.6 mmol/L (3.5-5.1)
[2018-11-13 06:58] LABS: Magnesium 2.5 mg/dl (1.8-2.4)
[2018-11-13] MEDS: BUDESONIDE 0.5 MG/2 ML VIAL (PULMICORT) INH SCH ×2 (06:58→19:20)
[2018-11-13] MEDS: POTASSIUM CHLORIDE 20 MEQ TABCR PO SCH ×2 (08:29→20:27)
[2018-11-13] MEDS: TORSEMIDE 20 MG TAB PO SCH ×2 (08:29→17:16)
[2018-11-13] MEDS: METOPROLOL SUCC 50MG EXT REL TAB PO SCH (08:29)
[2018-11-13] MEDS: SPIRONOLACTONE 25 MG TAB PO SCH (08:30)
[2018-11-13] MEDS: SERTRALINE HCL 50 MG TABLET PO SCH (08:31)
[2018-11-13] MEDS: MEMANTINE HCL 5 MG TAB PO SCH (08:31)
[2018-11-13] MEDS: dilTIAZem HCL 120 MG CAPCR PO SCH (08:31)
[2018-11-13] MEDS: APIXABAN 5 MG TABLET PO SCH ×2 (08:31→20:28)
--- NOTE | 2018-11-13 10:52 | Cardiology Progress Note ---
Date of Service November 13, 2018 Assessment & Plan (1) CHF (congestive heart failure): She had an effective diuresis again yesterday. I think we can continue her on her current medical regimen and monitor her electrolytes closely. (2) AF (paroxysmal atrial fibrillation): She transitions in and out of atrial fibrillation with a high frequency. She had an episode yesterday which was successfully treated by her device. Either with he can continue her on her current medical regimen and monitor her episodes including associated ventricular rates. I switched her to Eliquis based on her degree of renal dysfunction. (3) Cardiac pacemaker: Normal function. Atrial preference pacing activated. (4) Bacteremia due to Gram-positive bacteria: Growing enterococcus faecalis. This seems to have a lower propensity for device infection. Given her comorbidities and the organism identified, I would advocate treating this empirically rather than putting her through additional procedures. I think the likelihood that the device is infected is low. Subjective The patient did not provide any meaningful history. She denies any symptoms of pain or breathing difficulty. She could not remember which he had for breakfast and was not oriented to her place or situation. Review of Systems Review of Systems: Unobtainable due to cognitive status Physical Exam Physical Exam: She was alert and interactive. HEENT: Sclerae are anicteric. Pupils are equal and reactive to light and accommodation. Extraocular movements were intact. Neuro: Cranial nerves intact Lungs: Lungs are clear to auscultation bilaterally. There are no rales wheezes or rhonchi. She has normal respiratory effort without use of accessory muscles. There is normal pulmonary excursion. Cardiac: The rhythm was irregular. S1 and S2 were normal. There are no murmurs on examination. The PMI was not markedly displaced on palpation. Abdomen: Obese Results & Data Vital Signs (Past 12 Hours) Vital Signs Temp Pulse Resp BP BP Pulse Ox 11/13/18 06:58 86 16 94 11/13/18 06:56 36.6 C 67 22 117/72 91 11/13/18 03:57 36.7 C 61 20 104/68 95 11/13/18 01:25 67 18 93 11/12/18 23:35 36.4 C L 63 18 127/68 96 (1) CHF (congestive heart failure) Heart failure chronicity: acute on chronic Heart failure type: unspecified Qualified Code(s): I50.9 - Heart failure, unspecified
--- NOTE | 2018-11-13 11:28 | Hospitalist Progress Note ---
Date of Service November 13, 2018 Assessment & Plan (1) Bacteremia due to Gram-positive bacteria: Presented with tachypnea and a temp noted at [facility] of 99.1 prior to arrival. BCxs drawn in ER now growing GPC in chains in / bottles--> Enterococcus faecalis, pansensitive Repeat BCxs also with Enterococcus but were drawn prior to getting abx Repeat BCxs 11/12 NGTD Also had pulm edema vs infectious pneumonitis noted on CXR. Afebrile here, no leukocytosis. Has mild erythema of legs, cellulitis could be a source--> leg erythema now much improved -cont Dapto as per ID recommendations -consult ID appreciated - ECHO negative for valvular vegetation, question if would need DEDRA? Not sure if necessary due to comorbid conditions, also has pacer in place -will likely just treat with 4-6 weeks of IV abx -eventually will need PICC line or US-guided peripheral IV after cxs sterile for at least 48 hours -follow all BCxs (2) Cellulitis: as above, mild erythema R>L legs now much improved, some chronic from LE edema but daughter noted them to be slightly more red on RLE on admission -treating with abx as above for cellulitis and bacteremia (3) Diastolic congestive heart failure: Presents with acute on chronic diastolic CHF suspected Presented with tachypnea, hypoxia, evidence of pulmonary edema on chest x-ray, and weight is elevated in the ER compared to previous. She has been getting daily weights and PRN metolazone at the personal retirement, but daughter does report that the patient will be fed ham and processed cheese crackers at times. Her weight has steadily gone up over the past several month s. Troponin negative upon admission, proBNP is within normal limits at 784 although it is elevated from previous Chest x-ray findings could be consistent with infectious pneumonitis as per radiology and was on Vanco as above for bacteremia which would cover for a Strep PNA. Now on Dapto which does not give good coverage for pulm source but seems to be more likely source is cellulitis Tachypnea resolved, weight not being accurately recorded, and I/O net neg 3.1 L since admission Improved Seen by Cardiology-appreciate consult Has had some rapid Afib which may have contributed -continue telemetry monitoring -received Lasix 60 mg IV every 12 hours and then reverted back to po torsemide 60 bid -actually received gentle NS overnight the night of 7/29 for hypotension and fever and then were discontinued -Continue strict I's and O's, low-sodium diet, daily weights -Follow BMP and replace potassium -continue home Spironolactone -Continue good blood pressure control and rate control with metoprolol -continue prn metolazone (4) AF (paroxysmal atrial fibrillation): Was in normal sinus rhythm upon admission but had some intermittent brief Afib episodes to the 130s. Then was in sustained Afib with rates in 120s-130s for over 12 hours, did not respond at all to extra IV lopressor or extra beta marquise -Spontaneously converted on AM of 11/12. Has had just one quick burst of A. fib since then on 11/[address] for tachybradycardia syndrome-Cardio made adjustments here to atrial preference pacing to reduce tachycardia -Cardio increased dose of Toprol-XL to 200 mg p.o. once daily, continue diltiazem 120 mg once daily -Cardio changed her from Xarelto to Eliquis 5mg bid -Follow on telemetry (5) Apnea, sleep: Continue CPAP nightly w/ 2L (6) Asthma: Daughter reports wheezing noted at home. No wheezing currently but is on bronchodilator nebulizer treatments -Continue scheduled albuterol nebs while here but no steroids necessary -Continue budesonide neb twice daily (7) Cardiac pacemaker: Placed for tachybradycardia syndrome -Followed by cardiology (8) Dementia, in, senility: Stable, does eat her meals but is not able to carry on simple conversation s. She does recognize her family members -Continue supportive care -Continue donepezil 10 mg daily and memantine 5 mg daily (9) Depression: Stable -Continue sertraline 50 mg daily (10) High cholesterol: It does not appear that she is currently on any medication for this (11) Hypertension: Controlled, had hypotension with fever on evening of 11/11, responded to gentle IVFs -Continue Toprol, diltiazem, diuretics as above (12) Obesity: BMI 42.7 is noted (13) Acute metabolic encephalopathy: Mild alteration in mental status as per daughter on admission, likely related to bacteremia/infection, and hypoxia -seems improved now -continue treatment for infection, CHF (14) Pneumonitis: as above , likely ruled out (15) DVT prophylaxis: Eliquis Disposition-continue on telemetry unit until blood cultures remain negative and PICC line can be placed, will then need arrangements for home IV antibiotics at personal retirement-Case management is aware DNR/DNI as discussed with her daughter, Debbi, at the bedside who is her healthcare power of disability attorney Subjective Pt denies complaints. No SOB or cough, no abd pain. Pleasant but confused. Tele with paced rhythm and one burst of A-fib x 1 min Review of Systems Review of Systems: All systems reviewed & are unremarkable except as noted in HPI & below Physical Exam Constitutional: + morbidly obese; no acute distress Eyes: PERRL, conjunctivae normal, anicteric sclerae Neck: trachea midline, no thyromegaly Respiratory: Auscultation: + diminished lung sounds (Throughout due to obese body habitus) and + crackles (mild, at bases); no wheezes Cardiovascular: Rate/Rhythm: regular rate and regular rhythm Heart Sounds: no murmur Extremities: + edema (+ pitting edema of bilat LEs, improved) Gastrointestinal (Abdomen): normal bowel sounds, soft, nontender, no hepatos plenomegaly Musculoskeletal: Extremities: extremities normal to inspection; no cyanosis and no clubbing Skin: + erythema (Mild erythema of the legs bilaterally improved from previous); no rashes Neurologic: moves all extremities and awake; no focal motor deficits Psychiatric: Orientation: alert; + not oriented x 3 Genitourinary: no vaginal lesions, no adnexal mass ([place] catheter in place) Results & Data Vital Signs (Past 12 Hours) Vital Signs Temp Pulse Resp BP BP Pulse Ox 11/13/18 11:06 36.4 C L 60 20 113/66 97 11/13/18 06:58 86 16 94 11/13/18 06:56 36.6 C 67 22 117/72 91 11/13/18 03:57 36.7 C 61 20 104/68 95 11/13/18 01:25 67 18 93 11/12/18 23:35 36.4 C L 63 18 127/68 96 Laboratory Results 11/13/18 11/13/18 Range/Units 05:47 05:47 WBC 8.88 (4.8-10.8) K/uL RBC 3.95 L (4.2-5.4) M/uL Hgb 12.3 (12.0-16.0) g/dL Hct 39.1 (37-47) % MCV 99.0 (80-100) fL MCH 31.1 (25-34) pg MCHC 31.5 L (32-36) g/dL RDW Std Deviation 53.5 H (36.4-46.3) fL RDW Coeff of Kerry 14.7 H (11.5-14.5) % Plt Count 167 (130-400) K/uL MPV 10.5 H (7.4-10.4) fL Immature Gran % (Auto) 1.2 % Neut % (Auto) 61.2 % Lymph % (Auto) 23.6 % [place] % (Auto) 9.8 % Eos % (Auto) 3.7 % Baso % (Auto) 0.5 % Immature Gran # (Auto) 0.11 H (0.00-0.02) K/uL Neut # (Auto) 5.43 (1.4-6.5) K/uL Lymph # (Auto) 2.10 (1.2-3.4) K/uL [place] # (Auto) 0.87 H (0.11-0.59) K/uL Eos # (Auto) 0.33 (0-0.5) K/uL Baso # (Auto) 0.04 (0-0.2) K/uL Sodium 143 (136-145) mmol/L Potassium 3.6 (3.5-5.1) mmol/L Chloride 107 (98-107) mmol/L Carbon Dioxide 31 (21-32) mmol/L Anion Gap 5.0 (3-11) BUN 18 (7-18) mg/dl Creatinine 1.02 (0.6-1.2) mg/dl Est Cr Clr Drug Dosing 44.6 ml/min Est GFR ( Amer) 57.7 Est GFR (Non-Af Amer) 49.8 BUN/Creatinine Ratio 17.8 (10-20) Glucose 108 H (70-99) mg/dl Calcium 8.7 (8.5-10.1) mg/dl Magnesium 2.5 H (1.8-2.4) mg/dl Total Creatine Kinase 72 (26-192) U/L PG Care Time/CCT Total # of Minutes Spent Total Time Spent with Patient: Total time spent is greater than 50% in coordination of care (as documented) at patient's floor/unit and/or counseling patient: (1) Diastolic congestive heart failure Heart failure chronicity: acute on chronic Qualified Code(s): I50.33 - Acute on chronic diastolic (congestive) heart failure (2) Hypertension Hypertension type: essential hypertension Qualified Code(s): I10 - Essential (primary) hypertension
[2018-11-13] MEDS ORDERED: VANCOMYCIN TROUGH ONE (13:30)
[2018-11-13] MEDS: DAPTOmycin 500 MG in SYRINGE 0 ML IV SCH (14:30)
--- NOTE | 2018-11-13 14:35 | Infectious Disease Progress Nt ---
Date of Service November 13, 2018 Assessment & Plan (1) Gram positive sepsis: will change to dapto pending additional micro results. will repeat blood cultures x 2. UA negative, cxr negative, ? source. Concern for pacemaker -TTE but may need DEDRA due to morbid obesity, persisent + cultures and pacemaker, will likely require prolonged course of IV abx. will follow. Subjective appears more comfortable today, denies cp, sob, cough, no n/v/d/abd pain, tolerating abx. Remains on Dapto for blood cultures growing Enterococcus, additional ID/sensitivity pending. repeat cultures 11/12 pending. echo without veg on valve/pacer wire. wbc 8.8. Review of Systems Review of Systems: All systems reviewed & are unremarkable except as noted in HPI & below Physical Exam Constitutional: WD/WN, vitals as above + morbidly obese Eyes: PERRL, conjunctivae normal, anicteric sclerae ENMT: external ear and nose normal, oropharynx normal Neck: normal visual inspection Respiratory: normal respiratory effort, lungs clear to auscultation Auscultation: + diminished lung sounds Cardiovascular: RRR, no murmur, no edema Gastrointestinal (Abdomen): normal bowel sounds, soft, nontender, no hepatosplenomegaly Musculoskeletal: no cyanosis or clubbing, extremities motor strength 5/5 Skin: no rashes, warm and dry Psychiatric: Orientation: alert Affect: + anxious affect Results & Data Vital Signs (Past 12 Hours) Vital Signs Temp Pulse Pulse Resp BP BP Pulse Ox 11/13/18 13:58 60 16 95 11/13/18 11:06 36.4 C L 60 20 113/66 97 11/13/18 06:58 86 16 94 11/13/18 06:56 36.6 C 67 22 117/72 91 11/13/18 03:57 36.7 C 61 20 104/68 95 Laboratory Results Microbiology 11/10/18 13:34 Blood Aerobic Blood Culture - Preliminary Enterococcus species 11/10/18 13:34 Blood Anaerobic Blood Culture - Preliminary Enterococcus faecalis Gram positive cocci 11/11/18 10:59 Blood Aerobic Blood Culture - Preliminary Enterococcus faecalis 11/11/18 10:59 Blood Anaerobic Blood Culture - Preliminary No growth in Anaerobic bottle after 24 hours. 11/11/18 10:56 Blood Aerobic Blood Culture - Preliminary No growth in Aerobic bottle after 24 hours. 11/11/18 10:56 Blood Anaerobic Blood Culture - Preliminary Enterococcus faecalis 11/10/18 13:29 Blood Aerobic Blood Culture - Final Enterococcus faecalis 11/10/18 13:29 Blood Anaerobic Blood Culture - Final Enterococcus faecalis
[2018-11-13] MEDS: DONEPEZIL HCL 10 MG TAB PO SCH (20:27)
[2018-11-14] MEDS: ALBUT/IPRATROP 3MG/0.5MG NEB 3 ML VIAL INH SCH ×4 (02:28→19:02)
[2018-11-14] MEDS: BUDESONIDE 0.5 MG/2 ML VIAL (PULMICORT) INH SCH ×2 (07:05→19:02)
[2018-11-14 07:08] LABS: BUN Creatinine Ratio 14.3 (10-20); Calcium 8.7 mg/dl (8.5-10.1); Creatinine Clr Calc Pharmacy 50.3 ml/min; Est GFR (African American) 62.9; Est GFR (Non-African American) 54.2; Potassium 3.3 mmol/L (3.5-5.1)
[2018-11-14] MEDS ORDERED: VANCOMYCIN TROUGH ONE (07:30)
[2018-11-14] MEDS: POTASSIUM CHLORIDE 20 MEQ TABCR PO SCH ×2 (08:50→20:56)
[2018-11-14] MEDS: APIXABAN 5 MG TABLET PO SCH ×2 (08:50→20:56)
[2018-11-14] MEDS: METOPROLOL SUCC 50MG EXT REL TAB PO SCH (08:50)
[2018-11-14] MEDS: SPIRONOLACTONE 25 MG TAB PO SCH (08:51)
[2018-11-14] MEDS: MEMANTINE HCL 5 MG TAB PO SCH (08:51)
[2018-11-14] MEDS: TORSEMIDE 20 MG TAB PO SCH ×2 (08:51→16:30)
[2018-11-14] MEDS: dilTIAZem HCL 120 MG CAPCR PO SCH (08:51)
[2018-11-14] MEDS: SERTRALINE HCL 50 MG TABLET PO SCH (08:52)
[2018-11-14] MEDS ORDERED: POTASSIUM CHLORIDE 20 MEQ TABCR PO STA (08:59)
--- NOTE | 2018-11-14 10:29 | Hospitalist Progress Note ---
Date of Service November 14, 2018 Assessment & Plan (1) Bacteremia due to Gram-positive bacteria: Presented with tachypnea and a temp noted at [facility] of 99.1 prior to arrival. BCxs drawn in ER now growing Enterococcus faecalis, pansensitive in both sets Repeat BCxs also with Enterococcus but were drawn prior to getting abx Repeat BCxs 11/12 remain NGTD Also had pulm edema vs infectious pneumonitis noted on CXR. Most likely was pulmonary edema which is now resolved with IV diuresis initially Afebrile here, no leukocytosis. Had mild erythema of legs, cellulitis could be a source--> leg erythema now much improved with antibiotic therapy -cont Dapto as per ID recommendations x6 weeks -consult ID appreciated - ECHO negative for valvular vegetation, does have pacer in place, not a good candidate for DEDRA to confirm valvular vegetation -will empirically treat with 6 weeks of IV daptomycin, will need weekly CBC, CMP, CPK, ESR while on therapy -Consented the daughter for PICC line which can be placed tomorrow if cultures remain negative -follow repeat blood cultures (2) Cellulitis: as above, mild erythema R>L legs now much improved, some chronic from LE edema but daughter noted them to be slightly more red on RLE on admission -treating with abx as above for cellulitis and bacteremia (3) Diastolic congestive heart failure: Presents with mild acute on chronic diastolic CHF suspected Presented with tachypnea, hypoxia, evidence of pulmonary edema on chest x-ray, and weight is elevated in the ER compared to previous. She has been getting daily weights and PRN metolazone at the [facility], but daughter does report that the patient will be fed ham and processed cheese crackers at times. Her weight has steadily gone up over the past several months. Troponin negative upon admission, proBNP is within normal limits at 784 although it is elevated from previous Chest x-ray findings could be consistent with infectious pneumonitis as per radiology but was more likely mild pulmonary edema Tachypnea resolved, weight not being accurately recorded, and I/O net neg since admission, lower extremity edema improved Improved overall Seen by Cardiology-appreciate consult Has had some rapid Afib the day prior to admission on pacer interrogation which may have contributed -Okay to discontinue telemetry monitoring -received Lasix 60 mg IV every 12 hours and then reverted back to po torsemide 60 bid -Continue strict I's and O's, low-sodium diet, daily weights -Follow BMP and replace potassium -continue home Spironolactone -Continue good blood pressure control and rate control with metoprolol -continue prn metolazone for weight gain (4) AF (paroxysmal atrial fibrillation): Was in normal sinus rhythm upon admission but had some intermittent brief Afib episodes to the 130s. Then was in sustained Afib with rates in 120s-130s for over 12 hours, did not respond at all to extra IV lopressor or extra beta marquise -Spontaneously converted on AM of 11/12. Then back in rapid A. fib for approximately 6 to 7 hours on 11/14-again spontaneously converted Has pacemaker in place for tachybradycardia syndrome-Cardio made adjustments here to atrial preference pacing to reduce tachycardia -Cardio increased dose of Toprol-XL to 200 mg p.o. once daily, continue diltiazem 120 mg once daily -Cardio changed her from Xarelto to Eliquis 5mg bid due to her renal function -Discussed with cardiology-she will likely continue to go in and out of atrial fibrillation, there is possibility of adding on digoxin, however she seems to tolerate her A. fib just fine-will not to start digoxin at this time -Okay to transfer off telemetry-does not need to transfer back to telemetry for rapid heart rate and less has low blood pressures, shortness of breath, or is c linically decompensating (5) Apnea, sleep: Continue CPAP nightly w/ 2L (6) Asthma: Daughter reports wheezing noted at home. No wheezing currently but is on bronchodilator nebulizer treatments -Continue scheduled albuterol nebs while here but no steroids necessary -Continue budesonide neb twice daily (7) Cardiac pacemaker: Placed for tachybradycardia syndrome -Followed by cardiology (8) Dementia, in, senility: Stable, does eat her meals but is not able to carry on simple conversations. She does recognize her family members -Continue supportive care -Continue donepezil 10 mg daily and memantine 5 mg daily (9) Depression: Stable -Continue sertraline 50 mg daily (10) High cholesterol: It does not appear that she is currently on any medication for this (11) Hypertension: Controlled, had hypotension with fever on evening of 11/11, responded to gentle IVFs -Continue Toprol, diltiazem, diuretics as above (12) Obesity: BMI 42.7 is noted (13) Acute metabolic encephalopathy: Mild alteration in mental status as per daughter on admission, likely related to bacteremia/infection, and hypoxia -seems improved now -continue treatment for infection, CHF (14) Pneumonitis: as above , likely ruled out (15) Hypokalemia: Replace with p.o. potassium today -Follow BMP in the morning (16) DVT prophylaxis: Eliquis Disposition-transfer to medical floor, place PICC line tomorrow and hopeful for discharge to [facility] in the next 1 to 2 days DNR/DNI as discussed with her daughter, Debbi, at the bedside who is her healthcare power of title attorney Subjective Patient is doing very well today, has no complaints. Denies chest pain or shortness of breath. She is more alert and awake and conversational today although very forgetful. She is feeding herself when I saw her. Later in the day, I discussed her care with her daughter and her daughter consented for PICC line placement for tomorrow. Remains afebrile. On telemetry, she was in atrial fibrillation in the 110s to 140s at times for approximately 7 hours this morning and then spontaneously converted. I discussed the case with cardiology who recommended not doing anything extra as she was hemodynamically stable and is not symptomatic with her rapid A. fib and seems to spontaneously convert. He actually recommended no further telemetry monitoring. Review of Systems Review of Systems: Unobtainable due to cognitive status Physical Exam Constitutional: + morbidly obese; no acute distress Eyes: PERRL, conjunctivae normal, anicteric sclerae Neck: trachea midline, no thyromegaly Respiratory: no labored breathing Auscultation: + diminished lung sounds (Throughout due to obese body habitus); no crackles and no wheezes Cardiovascular: Rate/Rhythm: regular rate and regular rhythm Heart Sounds: no murmur Extremities: + edema (+ Trace pitting edema of bilat LEs, improved) Gastrointestinal (Abdomen): normal bowel sounds, soft, nontender, no hepatosplenomegaly Musculoskeletal: Extremities: extremities normal to inspection; no cyanosis and no clubbing Skin: + erythema (Very mild erythema of the legs bilaterally much improved from previous); no rashes Neurologic: moves all extremities and awake; no focal motor deficits Psychiatric: Orientation: alert; + not oriented x 3 Results & Data Vital Signs (Past 12 Hours) Vital Signs Temp Pulse Pulse Pulse Resp BP Pulse Ox 11/14/18 08:45 112 H 16 102/69 11/14/18 08:00 112 H 11/14/18 07:15 36.3 C L 89 19 97/61 L 95 11/14/18 07:05 92 H 18 95 11/14/18 04:00 36.4 C L 95 H 21 99/64 L 92 11/14/18 02:30 66 20 95 11/14/18 02:28 62 20 95 11/13/18 23:38 60 18 97 11/13/18 23:35 36.7 C 65 20 113/69 95 Laboratory Results 11/14/18 Range/Units 06:05 Sodium 140 (136-145) mmol/L Potassium 3.3 L (3.5-5.1) mmol/L Chloride 102 (98-107) mmol/L Carbon Dioxide 32 (21-32) mmol/L Anion Gap 6.0 (3-11) BUN 14 (7-18) mg/dl Creatinine 0.95 (0.6-1.2) mg/dl Est Cr Clr Drug Dosing 50.3 ml/min Est GFR ( Amer) 62.9 Est GFR (Non-Af Amer) 54.2 BUN/Creatinine Ratio 14.3 (10-20) Glucose 101 H (70-99) mg/dl Calcium 8.7 (8.5-10.1) mg/dl PG Care Time/CCT Total # of Minutes Spent Total Time Spent with Patient: Total time spent is greater than 50% in coordination of care (as documented) at patient's floor/unit and/or counseling patient: (1) Diastolic congestive heart failure Heart failure chronicity: acute on chronic Qualified Code(s): I50.33 - Acute on chronic diastolic (congestive) heart failure (2) Hypertension Hypertension type: essential hypertension Qualified Code(s): I10 - Essential (primary) hypertension
[2018-11-14] MEDS ORDERED: DIGOXIN 250 MCG in SYRINGE 9 ML IV SCH (12:45)
--- NOTE | 2018-11-14 14:11 | Infectious Disease Progress Nt ---
Date of Service November 14, 2018 Assessment & Plan (1) Gram positive sepsis: will continue dapto, repeat blood cultures negative.. UA negative, cxr negative, ? source. Concern for pacemaker -TTE but may need DEDRA due to morbid obesity, persisent + cultures and pacemaker, will likely require prolonged course of IV abx. will need 6 weeks IV abx, will need picc line, 11/12 cultures negative to date. will need weekly cbc, cmp, esr, cpk while on abx. will follow. Subjective oob to chair, no complaints, remains confused but comfortable. denies cp, sob, cough. tolerating abx. repeat cultures negative, initial cultures growing E. faecalis. appears more comfortable today, denies cp, sob, cough, no n/v/d/abd pain, tolerating abx. Remains on Dapto for blood cultures growing Enterococcus, additional ID/sensitivity pending. repeat cultures 11/12 pending. echo without veg on valve/pacer wire. wbc 8.8. Review of Systems Review of Systems: All systems reviewed & are unremarkable except as noted in HPI & below Physical Exam Constitutional: WD/WN, vitals as above + morbidly obese Eyes: PERRL, conjunctivae normal, anicteric sclerae ENMT: external ear and nose normal, oropharynx normal Neck: normal visual inspection Respiratory: normal respiratory effort, lungs clear to auscultation Auscultation: + diminished lung sounds Cardiovascular: RRR, no murmur, no edema Gastrointestinal (Abdomen): normal bowel sounds, soft, nontender, no hepatosplenomegaly Musculoskeletal: no cyanosis or clubbing, extremities motor strength 5/5 Skin: no rashes, warm and dry Psychiatric: Orientation: alert Affect: + anxious affect Results & Data Vital Signs (Past 12 Hours) Vital Signs Temp Pulse Pulse Pulse Resp BP Pulse Ox 11/14/18 13:44 68 18 93 11/14/18 11:57 36.6 C 94 H 21 107/55 L 94 11/14/18 08:45 112 H 16 102/69 11/14/18 08:00 112 H 11/14/18 07:15 36.3 C L 89 19 97/61 L 95 11/14/18 07:05 92 H 18 95 11/14/18 04:00 36.4 C L 95 H 21 99/64 L 92 11/14/18 02:30 66 20 95 11/14/18 02:28 62 20 95 Laboratory Results Microbiology 11/12/18 10:44 Blood Aerobic Blood Culture - Preliminary No growth in Aerobic bottle after 48 hours. 11/12/18 10:44 Blood Anaerobic Blood Culture - Preliminary No growth in Anaerobic bottle after 48 hours. 11/12/18 10:41 Blood Aerobic Blood Culture - Preliminary No growth in Aerobic bottle after 48 hours. 11/12/18 10:41 Blood Anaerobic Blood Culture - Preliminary No growth in Anaerobic bottle after 48 hours. 11/10/18 13:34 Blood Aerobic Blood Culture - Preliminary Enterococcus faecalis 11/10/18 13:34 Blood Anaerobic Blood Culture - Final Enterococcus faecalis Alpha strep. not enterococcus 11/11/18 10:56 Blood Aerobic Blood Culture - Preliminary No growth in Aerobic bottle after 48 hours. 11/11/18 10:56 Blood Anaerobic Blood Culture - Preliminary Enterococcus faecalis 11/11/18 10:59 Blood Aerobic Blood Culture - Preliminary Enterococcus faecalis 11/11/18 10:59 Blood Anaerobic Blood Culture - Preliminary No growth in Anaerobic bottle after 48 hours. 11/10/18 13:29 Blood Aerobic Blood Culture - Final Enterococcus faecalis 11/10/18 13:29 Blood Anaerobic Blood Culture - Final Enterococcus faecalis
[2018-11-14] MEDS: DAPTOmycin 500 MG in SYRINGE 0 ML IV SCH (14:32)
[2018-11-14] MEDS: DONEPEZIL HCL 10 MG TAB PO SCH (20:56)
[2018-11-15] MEDS: ALBUT/IPRATROP 3MG/0.5MG NEB 3 ML VIAL INH SCH ×4 (02:13→18:46)
[2018-11-15 07:02] LABS: BUN Creatinine Ratio 15.2 (10-20); Calcium 8.7 mg/dl (8.5-10.1); Creatinine Clr Calc Pharmacy 43.8 ml/min; Est GFR (African American) 53.2; Est GFR (Non-African American) 45.9; Potassium 3.5 mmol/L (3.5-5.1)
[2018-11-15] MEDS: BUDESONIDE 0.5 MG/2 ML VIAL (PULMICORT) INH SCH ×2 (07:37→18:46)
[2018-11-15] MEDS: MEMANTINE HCL 5 MG TAB PO SCH (08:46)
[2018-11-15] MEDS: METOPROLOL SUCC 50MG EXT REL TAB PO SCH (08:46)
[2018-11-15] MEDS: APIXABAN 5 MG TABLET PO SCH ×2 (08:46→20:33)
[2018-11-15] MEDS: SERTRALINE HCL 50 MG TABLET PO SCH (08:46)
[2018-11-15] MEDS: TORSEMIDE 20 MG TAB PO SCH ×2 (08:46→16:30)
[2018-11-15] MEDS: SPIRONOLACTONE 25 MG TAB PO SCH (08:46)
[2018-11-15] MEDS: dilTIAZem HCL 120 MG CAPCR PO SCH (08:47)
--- NOTE | 2018-11-15 12:26 | XRay Report ---
XR chest 1V portable CLINICAL HISTORY: R PICC placement; unable to sustain bullseye COMPARISON STUDY: 11/10/2018 FINDINGS: The heart is enlarged. There is a left subclavian dual-chamber central venous pacemaker. Th ere is radiographic evidence of mild congestive failure. There is been interval placement of a right- sided PICC catheter. The tip projects over the right atrium, and should be withdrawn approximately 7 cm.[ IMPRESSION: Right-sided PICC catheter with its tip in the right atrium. Electronically signed by: Shon Peres M.D. 11/15/2018 12:25 PM
--- NOTE | 2018-11-15 13:39 | XRay Report ---
SINGLE VIEW CHEST CLINICAL HISTORY: PICC repositioning. FINDINGS: An AP, portable, upright chest radiograph is compared to study performed earlier the same d ay 11/15/2018 and correlated with chest CT dated 05/28/2017. The examination is degraded by portable yang hnique, large body habitus, and patient rotation. A right PICC line has been repositioned. The tip pr ojects over the cavoatrial junction. A 2-lead cardiac pacemaker is unchanged in position. The heart i s enlarged and there is atherosclerotic calcification of the thoracic aorta. There is pulmonary vascu lar congestion. Hazy bilateral airspace opacities likely represent interstitial edema. Trace pleural effusions are suspected. Bibasilar atelectasis is noted. No pneumothorax is seen. The skeletal struct ures are osteopenic. Posttraumatic deformity is partially visualized in the left proximal humerus. IMPRESSION: 1. The right PICC line has been repositioned. The tip now projects over the cavoatrial junction. 2. Cardiomegaly and cardiac pacemaker with evidence of congestive failure. 3. Suspect trace pleural effusions. Electronically signed by: Arie Greenberg M.D. 11/15/2018 1:37 PM
[2018-11-15] MEDS: POTASSIUM CHLORIDE 20 MEQ TABCR PO SCH ×2 (13:52→20:33)
[2018-11-15] MEDS: DAPTOmycin 500 MG in SYRINGE 0 ML IV SCH (13:53)
--- NOTE | 2018-11-15 14:18 | Cardiology Progress Note ---
Date of Service November 15, 2018 Assessment & Plan (1) CHF (congestive heart failure): She seems to be doing very well on her current diuretic regimen. She is affecting good diuresis daily. Renal function has been stable. I would continue her current medical regimen in this regard. (2) AF (paroxysmal atrial fibrillation): She transitions in and out of atrial fibrillation with a high frequency. She continues to have some higher ventricular rates with atrial fibrillation. She was in sinus rhythm again today. Of course, she has few symptoms given her degree of dementia. However, improved rate control could be obtained with the digoxin which was started yesterday. Wild generally less desirable than other rate control agents, I think her relative lack of activity will make this a fairly efficacious medication. We will need to monitor her levels closely on an outpatient basis. (3) Cardiac pacemaker: Normal function. Atrial preference pacing activated. She did have some effective atrial therapies during an episode of atrial fibrillation a couple of days ago. (4) Bacteremia due to Gram-positive bacteria: Clinically doing well. I think the current plan is for an extended period of antibiotics which I would advocate. I do not think I would pursue an evaluation for device infection in that she has persistent bacteremia or recurrent infections. Removal of the device carries a significant morbidity and element of mortality which makes removal less attractive if there are other options. Subjective The patient did not verbalize any specific complaints this morning. She cannot remember if she had breakfast. She cannot remember of her daughter had visited her yesterday. She is not appear to have any significant insight into her current medical condition. No reliable history. Review of Systems Review of Systems: Unobtainable due to cognitive status Physical Exam Physical Exam: She is alert and answered questions. HEENT: Sclerae are anicteric. Pupils are equal and reactive to light and accommodation. Extraocular movements were intact. Neuro: Cranial nerves intact Lungs: Lungs are clear to auscultation bilaterally. There are no rales wheezes or rhonchi. She has normal respiratory effort without use of accessory muscles. There is normal pulmonary excursion. Cardiac: The rhythm was regular. S1 and S2 were normal. There are no murmurs on examination. The PMI was not markedly displaced on palpation. . Results & Data Vital Signs (Past 12 Hours) Vital Signs Temp Pulse Resp BP Pulse Ox 11/15/18 13:38 77 20 94 11/15/18 08:04 36.7 C 61 20 143/77 H 94 11/15/18 07:37 63 27 H 93 (1) CHF (congestive heart failure) Heart failure chronicity: acute on chronic Heart failure type: unspecified Qualified Code(s): I50.9 - Heart failure, unspecified
--- NOTE | 2018-11-15 14:51 | Hospitalist Progress Note ---
Date of Service November 15, 2018 Assessment & Plan (1) Bacteremia due to Gram-positive bacteria: Presented with tachypnea and a temp noted at [facility] of 99.1 prior to arrival. BCxs drawn in ER now growing Enterococcus faecalis, pansensitive in both sets, as well as now also with Alpha Step not enterococcus in 1/2 sets Repeat BCxs also with Enterococcus but were drawn prior to getting abx Repeat BCxs 11/12 remain NGTD Also had pulm edema vs infectious pneumonitis noted on CXR. Most likely was pulmonary edema which is now resolved with IV diuresis initially Afebrile here, no leukocytosis. Had mild erythema of legs, cellulitis could be a source--> leg erythema now much improved with antibiotic therapy -cont Dapto as per ID recommendations x6 weeks -consult ID appreciated - ECHO negative for valvular vegetation, does have pacer in place, not a good candidate for DEDRA to confirm valvular vegetation -will empirically treat with 6 weeks of IV daptomycin, will need weekly CBC, CMP, CPK, ESR while on therapy -has PICC line -follow repeat blood cultures-NGTD (2) Cellulitis: as above, mild erythema R>L legs now much improved, some chronic from LE edema but daughter noted them to be slightly more red on RLE on admission -treating with abx as above for cellulitis and bacteremia (3) Diastolic congestive heart failure: Presents with mild acute on chronic diastolic CHF suspected Presented with tachypnea, hypoxia, evidence of pulmonary edema on chest x-ray, and weight is elevated in the ER compared to previous. She has been getting daily weights and PRN metolazone at the [facility], but daughter does report that the patient will be fed ham and processed cheese crackers at times. Her weight has steadily gone up over the past several months. Troponin negative upon admission, proBNP is within normal limits at 784 although it is elevated from previous Chest x-ray findings could be consistent with infectious pneumonitis as per radiology but was more likely mild pulmonary edema Tachypnea resolved, weight not being accurately recorded, and I/O net neg since admission, lower extremity edema improved Improved overall Seen by Cardiology-appreciate consult Has had some rapid Afib the day prior to admission on pacer interrogation which may have contributed -Okay to discontinue telemetry monitoring -received Lasix 60 mg IV every 12 hours and then reverted back to po torsemide 60 bid -Continue strict I's and O's, low-sodium diet, daily weights -Follow BMP and replace potassium -continue home Spironolactone -Continue good blood pressure control and rate control with metoprolol -continue prn metolazone for weight gain (4) AF (paroxysmal atrial fibrillation): Was in normal sinus rhythm upon admission but had some intermittent brief Afib episodes to the 130s. Then was in sustained Afib with rates in 120s-130s for over 12 hours, did not respond at all to extra IV lopressor or extra beta marquise -Spontaneously converted on AM of 11/12. Then back in rapid A. fib for approximately 6 to 7 hours on 11/14-again spontaneously converted Has pacemaker in place for tachybradycardia syndrome-Cardio made adjustments here to atrial preference pacing to reduce tachycardia In regular rhythm on exam today -Cardio increased dose of Toprol-XL to 200 mg p.o. once daily, continue diltiazem 120 mg once daily -Cardio changed her from Xarelto to Eliquis 5mg bid due to her renal function -Discussed with cardiology-she will likely continue to go in and out of atrial fibrillation, will add on digoxin 0.125mg daily - however she seems to tolerate her A. fib just fine-will not to start digoxin at this time (5) Apnea, sleep: Continue CPAP nightly w/ 2L (6) Asthma: Daughter reports wheezing noted at home. No wheezing currently but is on bronchodilator nebulizer treatments -Continue scheduled albuterol nebs while here but no steroids necessary -Continue budesonide neb twice daily (7) Cardiac pacemaker: Placed for tachybradycardia syndrome -Followed by cardiology (8) Dementia, in, senility: Stable, does eat her meals but is not able to carry on simple conversations. She does recognize her family members -Continue supportive care -Continue donepezil 10 mg daily and memantine 5 mg daily (9) Depression: Stable -Continue sertraline 50 mg daily (10) High cholesterol: It does not appear that she is currently on any medication for this (11) Hypertension: Controlled, had hypotension with fever on evening of 11/11, responded to gentle IVFs -Continue Toprol, diltiazem, diuretics as above (12) Obesity: BMI 42.7 is noted (13) Acute metabolic encephalopathy: Mild alteration in mental status as per daughter on admission, likely related to bacteremia/infection, and hypoxia -seems improved now -continue treatment for infection, CHF (14) Pneumonitis: as above , likely ruled out (15) Hypokalemia: Replace with p.o. potassium today -Follow BMP in the morning (16) DVT prophylaxis: Eliquis Disposition-improving, starting digoxin, plan for dc tomorrow to [facility] for IV abx and PT DNR/DNI as discussed with her daughter, Debbi, at the bedside who is her healthcare power of attorney lawyer Subjective Pt has no complaints. She just walked with PT down the [address]. had her PICC line placed today Review of Systems Review of Systems: Unobtainable due to cognitive status Physical Exam Constitutional: + morbidly obese; no acute distress Eyes: PERRL, conjunctivae normal, anicteric sclerae Neck: trachea midline, no thyromegaly Respiratory: no labored breathing Auscultation: + diminished lung sounds (Throughout due to obese body habitus); no crackles and no wheezes Cardiovascular: Rate/Rhythm: regular rate and regular rhythm Heart Sounds: no murmur Extremities: + edema (+ Trace pitting edema of bilat LEs, improved) Gastrointestinal (Abdomen): normal bowel sounds, soft, nontender, no hepatosplenomegaly Musculoskeletal: Extremities: extremities normal to inspection; no cyanosis and no clubbing Skin: + erythema (Very mild erythema of the legs bilaterally much improved from previous); no rashes Neurologic: moves all extremities and awake; no focal motor deficits Psychiatric: Orientation: alert; + not oriented x 3 Results & Data Vital Signs (Past 12 Hours) Vital Signs Temp Pulse Resp BP Pulse Ox 11/15/18 13:38 77 20 94 11/15/18 08:04 36.7 C 61 20 143/77 H 94 11/15/18 07:37 63 27 H 93 Laboratory Results 11/15/18 Range/Units 05:31 Sodium 138 (136-145) mmol/L Potassium 3.5 (3.5-5.1) mmol/L Chloride 100 (98-107) mmol/L Carbon Dioxide 33 H (21-32) mmol/L Anion Gap 5.0 (3-11) BUN 17 (7-18) mg/dl Creatinine 1.09 (0.6-1.2) mg/dl Est Cr Clr Drug Dosing 43.8 ml/min Est GFR ( Amer) 53.2 Est GFR (Non-Af Amer) 45.9 BUN/Creatinine Ratio 15.2 (10-20) Glucose 107 H (70-99) mg/dl Calcium 8.7 (8.5-10.1) mg/dl PG Care Time/CCT Total # of Minutes Spent Total Time Spent with Patient: Total time spent is greater than 50% in coordination of care (as documented) at patient's floor/unit and/or counseling patient: (1) Diastolic congestive heart failure Heart failure chronicity: acute on chronic Qualified Code(s): I50.33 - Acute on chronic diastolic (congestive) heart failure (2) Hypertension Hypertension type: essential hypertension Qualified Code(s): I10 - Essential (primary) hypertension
[2018-11-15] MEDS ORDERED: DIGOXIN 0.125 MG TAB PO SCH (16:00)
[2018-11-15 16:19] LABS: BUN Creatinine Ratio 14.2 (10-20); Calcium 8.4 mg/dl (8.5-10.1); Creatinine Clr Calc Pharmacy 48.2 ml/min; Est GFR (African American) 59.8; Est GFR (Non-African American) 51.6; Potassium 3.4 mmol/L (3.5-5.1)
[2018-11-15] MEDS: DONEPEZIL HCL 10 MG TAB PO SCH (20:32)
[2018-11-16] MEDS: ALBUT/IPRATROP 3MG/0.5MG NEB 3 ML VIAL INH SCH ×2 (01:56→07:07)
[2018-11-16 06:05] LABS: Basophils # (auto) 0.05 K/uL (0-0.2); Basophils % (auto) 0.6 %; Eosinophils # (auto) 0.38 K/uL (0-0.5); Eosinophils % (auto) 4.9 %; Hematocrit (blood only) 37.4 % (37-47); Immature Granulocytes # (auto) 0.17 K/uL (0.00-0.02); Immature Granulocytes % (auto) 2.2 %; Lymphocytes # (auto) 2.21 K/uL (1.2-3.4); Lymphocytes % (auto) 28.7 %; Mean Corpuscular Hgb Conc 32.1 g/dL (32-36); Mean Corpuscular Volume 96.9 fL (80-100); Mean Platelet Volume 10.5 fL (7.4-10.4); Monocytes # (auto) 0.69 K/uL (0.11-0.59); Neutrophils % (auto) 54.6 %; Platelet Count 189 K/uL (130-400); RDW Coefficient of Variation 14.4 % (11.5-14.5); RDW Standard Deviation 51.2 fL (36.4-46.3); Red Blood Count 3.86 M/uL (4.2-5.4)
[2018-11-16 06:34] LABS: Creatinine Clr Calc Pharmacy 46.4 ml/min; Est GFR (Non-African American) 49.2; Magnesium 2.5 mg/dl (1.8-2.4)
[2018-11-16] MEDS: BUDESONIDE 0.5 MG/2 ML VIAL (PULMICORT) INH SCH (07:07)
[2018-11-16] MEDS: TORSEMIDE 20 MG TAB PO SCH (08:43)
[2018-11-16] MEDS: SPIRONOLACTONE 25 MG TAB PO SCH (08:44)
[2018-11-16] MEDS: dilTIAZem HCL 120 MG CAPCR PO SCH (08:44)
[2018-11-16] MEDS: APIXABAN 5 MG TABLET PO SCH (08:45)
[2018-11-16] MEDS: MEMANTINE HCL 5 MG TAB PO SCH (08:45)
[2018-11-16] MEDS: POTASSIUM CHLORIDE 20 MEQ TABCR PO SCH (08:45)
[2018-11-16] MEDS: METOPROLOL SUCC 50MG EXT REL TAB PO SCH (08:45)
[2018-11-16] MEDS: SERTRALINE HCL 50 MG TABLET PO SCH (08:47)
[2018-11-16 09:18] LABS: BUN Creatinine Ratio 13.5 (10-20); Calcium 8.4 mg/dl (8.5-10.1); Creatinine Clr Calc Pharmacy 44.6 ml/min; Est GFR (African American) 54.4; Potassium 3.4 mmol/L (3.5-5.1)
[2018-11-16] MEDS ORDERED: POTASSIUM CHLORIDE 20 MEQ TABCR PO ONE (10:00)
--- NOTE | 2018-11-16 10:27 | Discharge Summary ---
Date of Service November 16, 2018 Admission HPI Per Admitting Provider This patient is an 88-year-old female with a history of chronic diastolic CHF, HTN, PAF, tachybradycardia syndrome status post pacemaker, HILARIO on CPAP, moderate-severe dementia, asthma, morbid obesity, depression, glaucoma, and hyperlipidemia who was [facility] in [facility] for progressively worsening shortness of breath over the last 2 days. Her daughter is a nurse and noticed 2 days prior that she was having wheezing and shortness of breath but did not notice a cough and she had no fever. She was given an extra dose of diuretics last week and had some improvement. The daughter reports her breathing was improved by yesterday, but then she was contacted by the personal jail today stating that the patient was having worsening shortness of breath again and the daughter recommended she be transported to the ER. The daughter thinks that perhaps the patient is just slightly more confused than her baseline. The patient is not able to give any history at all due to her dementia. Daughter reports that the patient has gained weight over the last few months and knows that she is only been given the metolazone 2 times in the last month which is her PRN for weight gain. In the ER, she was noted to be hypoxic and requiring 2 L nasal cannula, tachypneic, afebrile, and was normotensive. Her chest x-ray showed pulmonary edema and trace bilateral pleural effusions consistent with CHF. An ABG showed evidence of respiratory alkalosis due to her tachypnea. She was in a normal sinus rhythm, and had a negative CT noncontrast of the head. A [place] catheter was placed and she was given 1 dose of IV Lasix 60 mg and already had 600 mL's out by the time I saw her. She will be admitted for an acute on chronic diastolic CHF exacerbation Principal Diagnosis Enterococcus and alpha Streptococcus Septicemia, Rapid atrial fibrillation, Acute on chronic diastolic CHF Discharge Exam Constitutional + morbidly obese; no acute distress Eyes PERRL, conjunctivae normal, anicteric sclerae Neck trachea midline, no thyromegaly Respiratory no labored breathing Auscultation: + diminished lung sounds (Throughout due to obese body habitus); no crackles and no wheezes Cardiovascular Rate/Rhythm: regular rate and regular rhythm Heart Sounds: no murmur Extremities: + edema (+ Trace pitting edema of bilat LEs, improved) Gastrointestinal (Abdomen) normal bowel sounds, soft, nontender, no hepatosplenomegaly Musculoskeletal Extremities: extremities normal to inspection; no cyanosis and no clubbing Skin + erythema (Very mild erythema of the legs bilaterally much improved from previous); no rashes Neurologic moves all extremities and awake; no focal motor deficits Psychiatric Orientation: alert; + not oriented x 3 Discharge Data Allergies Allergy/AdvReac Type Severity Reaction Status Date / Time No Known Allergies Allergy Verified 11/10/18 13:04 Consultations 11/10/18 15:48 ED Decision to Admit Stat 11/10/18 18:16 Consult Cardiology Routine Consult Case Management - Discharge Planning Routine 11/11/18 08:57 Consult Infectious Diseases Routine Procedures Performed ECHO Ordered Studies 11/10/18 12:19 CT head/brain wo con Stat CXRs Hospital Course (1) Bacteremia due to Gram-positive bacteria: Presented with tachypnea and a temp noted at [facility] of 99.1 prior to arrival. Then had a fever here to 38 C day after admission BCxs drawn in ER now growing Enterococcus faecalis, pansensitive in both sets, as well as now also with Alpha Step not enterococcus in 1/2 sets Repeat BCxs also with Enterococcus but were drawn prior to getting abx Repeat BCxs 11/12 remain NGTD Also had pulm edema vs infectious pneumonitis noted on CXR. Most likely was pulmonary edema which is now resolved with IV diuresis initially Afebrile here, no leukocytosis. Had mild erythema of legs, cellulitis could be a source--> leg erythema now much improved with antibiotic therapy -cont Dapto as per ID recommendations x6 weeks -consult ID appreciated - ECHO negative for valvular vegetation, does have pacer in place, not a good candidate for DEDRA to confirm valvular vegetation -will empirically treat with 6 weeks of IV daptomycin, will need weekly CBC, CMP, CPK, ESR while on therapy -has PICC line -follow repeat blood cultures-NGTD -f/u with ID within 2 weeks after discharge (2) Cellulitis: as above, mild erythema R>L legs now much improved, some chronic from LE edema but daughter noted them to be slightly more red on RLE on admission -treating with abx as above for cellulitis and bacteremia (3) Diastolic congestive heart failure: Presents with mild acute on chronic diastolic CHF suspected Presented with tachypnea, hypoxia, evidence of pulmonary edema on chest x-ray, and weight is elevated in the ER compared to previous. She has been getting daily weights and PRN metolazone at the [facility] jail, but daughter does report that the patient will be fed ham and processed cheese crackers at times. Her weight has steadily gone up over the past several months. Troponin negative upon admission, proBNP is within normal limits at 784 although it is elevated from previous Chest x-ray findings could be consistent with infectious pneumonitis as per radiology but was more likely mild pulmonary edema Tachypnea resolved, weight not being accurately recorded here, and I/O net neg since admission, lower extremity edema improved Improved overall Seen by Cardiology-appreciate consult Has had some rapid Afib the day prior to admission on pacer interrogation which may have contributed -received Lasix 60 mg IV every 12 hours and then reverted back to po torsemide 60 bid -Continue strict I's and O's, low-sodium diet, daily weights -Follow CMP once weekly while on abx and replace potassium daily -continue home Spironolactone -Continue good blood pressure control and rate control with metoprolol -continue prn metolazone for weight gain (4) AF (paroxysmal atrial fibrillation): Was in normal sinus rhythm upon admission but had some intermittent brief Afib episodes to the 130s. Then was in sustained Afib with rates in 120s-130s for over 12 hours, did not respond at all to extra IV lopressor or extra beta marquise -Spontaneously converted on AM of 11/12. Then back in rapid A. fib for approximately 6 to 7 hours on 11/14-again spontaneously converted Has pacemaker in place for tachybradycardia syndrome-Cardio made adjustments here to atrial preference pacing to reduce tachycardia In regular rhythm on exam for the last 2 days prior to admission -Cardio increased dose of Toprol-XL to 200 mg p.o. once daily, continue diltiazem 120 mg once daily -Cardio changed her from Xarelto to Eliquis 5mg bid due to her renal function -Discussed with cardiology-she will likely continue to go in and out of atrial fibrillation, will add on digoxin 0.125mg daily - however she seems to tolerate her A. fib just fine-will not to start digoxin at this time -she tends to convert spontaneously to a sinus rhythm after about 6-7 hours of rapid Afib, tolerates her Afib well (5) Apnea, sleep: Continue CPAP nightly w/ 2L (6) Asthma: Daughter reports wheezing noted at home. No wheezing currently but is on bronchodilator nebulizer treatments -Continue scheduled albuterol nebs while here but no steroids necessary -Continue budesonide neb twice daily (7) Cardiac pacemaker: Placed for tachybradycardia syndrome -Followed by cardiology (8) Dementia, in, senility: Stable, does eat her meals but is not able to carry on simple conversations. She does recognize her family members -Continue supportive care -Continue donepezil 10 mg daily and memantine 5 mg daily (9) Depression: Stable -Continue sertraline 50 mg daily (10) High cholesterol: It does not appear that she is currently on any medication for this (11) Hypertension: Controlled, had hypotension with fever on evening of 11/11, responded to gentle IVFs -Continue Toprol, diltiazem, diuretics as above (12) Obesity: BMI 42.7 is noted (13) Acute metabolic encephalopathy: Mild alteration in mental status as per daughter on admission, likely r elated to bacteremia/infection, and hypoxia -seems improved now -continue treatment for infection, CHF (14) Pneumonitis: as above , likely ruled out (15) Hypokalemia: Replace with p.o. potassium today -Follow BMP as outpt -continue bid standing dose of KCl (16) DVT prophylaxis: Eliquis Disposition-stable for dc to [facility] for IV abx and PT DNR/DNI as discussed with her daughter, Debbi, at the bedside who is her healthcare power of interventional physiatrist Total Time Total Time Spent Total Time Spent (In Minutes): >30 min Total Time Includes: Examination of the Patient, Discharge Planning and Medication Reconciliation Discharge Plan Discharge Items Patient Disposition: Transfer Inpatient Rehab Fac Reason For Visit: CHF EXACERBATION, HYPOXIA Discharge Diagnosis: Bacteremia, Sepsis,Acute on chronic diastolic CHF Condition: Fair Discharge Goals: Decrease discomfort, Diagnostic testing, Improve disease control, Learn about illness and Therapeutic intervention Activity: As commented below Lifting: Gradually increase as tolerated Bathing: No limitations Exercise/Sports: Gradually increase as tolerated Non-emergency contact: Primary Care Provider and [employer] Technician Call non-emergency contact if: you have any medication questions, your symptoms worsen and your temperature is above 100.5 Follow-up/Referrals: Lynette Thomas DO [Physician] - (Please follow up within 2 weeks, Infectious Disease ) Chris Cannon MD [Physician] - (Please follow up within 2-3 weeks. ) Chantell, [Primary Care Provider] - Diet: Low Sodium (2gm) Addtl Provider Instructions: You were admitted with respiratory distress from volume overload/CHF and also then found to have sepsis and bacteria in your blood stream. This will require treatment with IV antibiotics (Daptomycin) x 6 weeks; the last dose of antibiotics will be on 12/24/18. You will need weekly labs to include CBC, CMP, ESR, and CPK. You had some intermittent issues with rapid atrial fibrillation which was completely asymptomatic, but Cardiology added on digoxin 0.125mg by mouth once daily. You will need follow up with Cardiology within 2-3 weeks and will need to have your digoxin level checked in 1 week. Your pacer settings were also adjusted to help with this. Your metoprolol dose was increased to 200mg daily. Your Xarelto was also discontinued in favor of Eliquis as per Cardiology. Prescriptions: New Eliquis 5 mg Tablet 5 mg PO BID Qty: 60 RF: 0 metoprolol succinate 200 mg tablet extended release 24 hr 200 mg PO DAILY Qty: 30 RF: 0 digoxin 125 mcg Tablet 0.125 mg PO DAILY@1600 Qty: 30 RF: 0 daptomycin 500 mg recon soln 500 mg IV DAILY Qty: 38 RF: 0 Continued wheelchair device .ROUTE .MEDSUPPLY Qty: 1 RF: 0 spironolactone 25 mg tablet 25 mg PO .Take 1 tablet daily Qty: 90 RF: 0 Aerochamber Plus Flow-Vu spacer .ROUTE .MEDSUPPLY Qty: 1 RF: 0 torsemide 20 mg tablet 60 mg PO BID RF: 0 metolazone 2.5 mg Tablet 2.5 mg PO DAILY PRN (Reason: Wt gain>3lbs/day or >5lbs/week) RF: 0 ipratropium-albuterol 0.5 mg-3 mg(2.5 mg base)/3 mL Solution For Nebulization 3 ml INHALATION Q6 PRN (Reason: Shortness Of Breath Or Wheezing) RF: 0 loperamide 2 mg Capsule 2 mg PO UD PRN (Reason: Diarrhea) RF: 0 polyethylene glycol 3350 [Miralax] 17 gram Powder In Packet 17 g PO DAILY PRN (Reason: Constipation) RF: 0 donepezil [Aricept] 10 mg tablet 10 mg PO HS RF: 0 acetaminophen [Tylenol Extra Strength] 500 mg Tablet 500 mg PO Q4 PRN (Reason: Fever Or Pain) RF: 0 diphenhydramine HCl [Banophen] 25 mg Tablet 25 mg PO Q6 PRN (Reason: itch/rash) RF: 0 budesonide [Pulmicort] 0.5 mg/2 mL suspension for nebulization 1 vial Inhalation BID RF: 0 diltiazem HCl [Cardizem CD] 120 mg capsule,extended release 24hr 120 mg PO DAILY RF: 0 nystatin 100,000 unit/gram Powder 1 applic TOPICAL TID PRN (Reason: Unknown) RF: 0 sertraline [Zoloft] 50 mg tablet 50 mg PO DAILY RF: 0 memantine [Namenda] 5 mg tablet 5 mg PO DAILY RF: 0 Breo Ellipta 200-25 mcg/dose blister with device 1 puff Inhalation DAILY RF: 0 Oyster Shell Calcium-Vit D3 500 mg(1,250mg) -200 unit Powder In Packet 1 tab PO DAILY RF: 0 potassium chloride [Klor-Con M20] 20 mEq tablet,ER particles/crystals 20 meq PO BID Qty: 60 RF: 1 lorazepam 0.5 mg Tablet 0.5 mg PO UD PRN (Reason: prior to transport) Qty: 15 RF: 0 Discontinued Xarelto 20 mg tablet 20 mg PO DAILY Qty: 90 RF: 3 metoprolol succinate [Toprol XL] 100 mg tablet extended release 24 hr 150 mg PO DAILY RF: 0 Stand-Alone Forms: [facility] Discharge Orders: Discharge Order (Routine); Ordered 11/16/18 Ordered By: Madonna Sloan Skilled Items Patient informed of condition?: Yes DNR: Yes Discharge Level of Care: Acute rehab Communicable Disease: No Discharge Prognosis: Improving Admission Data Admit Date/Time: 11/10/18 16:52 Attending Provider: Madonna Sloan Admit Provider: Madonna Sloan Primary Care Provider: Capri Abdul Providers: Madonna Sloan ; Chris Cannon Jennifer Service: Medical Other Pending Studies at Discharge: Yes (Final Blood Cultures)
[2018-11-16] MEDS: DAPTOmycin 500 MG in SYRINGE 0 ML IV SCH (12:04)
== END 2018-11-16 12:00 | DRG 871 ==
LOC: ED 11:48 → 2S 16:52 → 4W 11-14 19:34

== ENCOUNTER 2018-12-06 19:29 | Inpatient (IN) ==
--- NOTE | 2018-12-06 20:24 | XRay Report ---
XR chest 1V portable CLINICAL HISTORY: weakness COMPARISON STUDY: Chest radiograph November 15, 2018. FINDINGS: Dual lead left subclavian pacemaker is in place. There is moderate cardiomegaly. Interstiti al thickening and bilateral opacities have progressed. There is no pneumothorax. There may be a small left pleural effusion. IMPRESSION: 1. Progression of interstitial thickening and bilateral opacities which may reflect pulmonary edema o r pneumonia. Radiographic follow-up to ensure resolution is recommended. 2. Moderate cardiomegaly. Electronically signed by: Marco Ribeiro M.D. 12/06/2018 8:23 PM
[2018-12-06] MEDS ORDERED: VANCOMYCIN CONSULT ACTIVE PRN (20:44)
[2018-12-06] MEDS ORDERED: PIPERACILL/TAZOBAC CONSULT ACTIVE PRN (20:44)
[2018-12-06] MEDS ORDERED: VANCOMYCIN HCL 2,500 MG in SODIUM CHLORIDE 0.9% 500 ML IV ONE (20:44)
[2018-12-06] MEDS ORDERED: ALBUT/IPRATROP 3MG/0.5MG NEB 3 ML VIAL NEB STA (20:44)
[2018-12-06] MEDS ORDERED: PIPERACILLIN/TAZOBACTAM 4.5 GM/120 ML BAG IV ONE (20:44)
[2018-12-06 21:48] LABS: Basophils # (auto) 0.04 K/uL (0-0.2); Basophils % (auto) 0.3 %; Eosinophils # (auto) 0.96 K/uL (0-0.5); Hemoglobin 12.1 g/dL (12.0-16.0); Immature Granulocytes # (auto) 0.29 K/uL (0.00-0.02); Immature Granulocytes % (auto) 2.4 %; Lymphocytes # (auto) 1.51 K/uL (1.2-3.4); Lymphocytes % (auto) 12.6 %; Mean Corpuscular Hgb Conc 32.7 g/dL (32-36); Mean Corpuscular Volume 93.9 fL (80-100); Monocytes # (auto) 0.74 K/uL (0.11-0.59); Monocytes % (auto) 6.2 %; Neutrophils # (auto) 8.42 K/uL (1.4-6.5); Neutrophils % (auto) 70.5 %; Platelet Count 265 K/uL (130-400); RDW Coefficient of Variation 14.4 % (11.5-14.5); RDW Standard Deviation 49.1 fL (36.4-46.3); Red Blood Count 3.94 M/uL (4.2-5.4); White Blood Count 11.96 K/uL (4.8-10.8)
[2018-12-06 21:52] LABS: Allen Test Pos (Pos); Base Excess ABG 4.4 mEq/L (-9-1.8); HCO3 ABG 28 mmol/L (19-24); Oxygen Saturation ABG 93.7 % (90-95); PCO2 ABG 38 mmHg (35-46); PO2 ABG 67 mm/Hg (80-95); pH ABG 7.49 (7.35-7.45)
[2018-12-06 22:06] LABS: Alanine Aminotransferase 24 U/L (12-78); Albumin Level 2.4 gm/dl (3.4-5.0); Aspartate Aminotransferase 20 U/L (15-37); BUN Creatinine Ratio 16.3 (10-20); Blood Urea Nitrogen 15 mg/dl (7-18); Calcium 8.4 mg/dl (8.5-10.1); Carbon Dioxide 28 mmol/L (21-32); Chloride 98 mmol/L (98-107); Est GFR (African American) 67.1; Est GFR (Non-African American) 57.9; Glucose 114 mg/dl (70-99); Magnesium 2.1 mg/dl (1.8-2.4); Potassium 3.3 mmol/L (3.5-5.1); Sodium 134 mmol/L (136-145)
[2018-12-06 22:17] LABS: Albumin Globulin Ratio 0.5 (0.9-2); Alkaline Phosphatase 66 U/L (45-117); Bilirubin,Total 0.4 mg/dl (0.2-1); Globulin 4.7 gm/dl (2.5-4.0); Total Protein 7.1 gm/dl (6.4-8.2)
--- NOTE | 2018-12-06 22:20 | CT Scan Report ---
CT OF THE HEAD WITHOUT CONTRAST CLINICAL HISTORY: Fall. COMPARISON STUDY: Head CT November 10, 2018. CT DOSE: 1284.19 mGy.cm TECHNIQUE: Helical axial images of the head were obtained without IV contrast. Automated exposure con trol was utilized for the study. A dose lowering technique was utilized adhering to the principles o f ALARA. FINDINGS: No acute intracranial hemorrhage, midline shift or mass effect is present. Ventricular syst em is stable. The basilar cisterns are patent. There are no extra axial collections. White matter hyp odensities are unchanged. These reflect small vessel disease. There is no calvarial fracture. IMPRESSION: 1. No acute intracranial findings. 2. No calvarial fracture. 3. Exam mildly compromised by motion artifact. Electronically signed by: Marco Ribeiro M.D. 12/06/2018 10:19 PM
--- NOTE | 2018-12-06 23:42 | Emergency Department Note ---
Entered by Rebecca Patel acting as a scribe for ED Provider Note CHIEF COMPLAINT: Fall HISTORY OF PRESENT ILLNESS: The patient is a 88 year old female who presents to the Emergency Room with complaints of an episode of a fall that occurred just prior to arrival. The patient's daughter states that the patient was found on hr right side by staff at [facility] where the patient is staying for IV Daptomycin for her sepsis. The patient denies any pain or injury from this fall. The patient's daughter states that before the fall the patient was eating her dinner when she began to vomit. Per the patient's daughter, the patient has been wheezing during this time. The patient's daughter states that the patient has a history of CHF and gets nebulizer treatments, but has not been getting nebulizer treatments since being at [facility]. Pt denies LOC, headache, fevers, chills, diaphoresis, visual changes, neck pain, chest pain, nausea, abdominal pain, back pain, melena, hematochezia, urinary symptoms, numbness, weakness, lymphadenopathy, rash, or other complaints. REVIEW OF SYSTEMS: See HPI for pertinent positives and negatives. ROS somewhat limited secondary to the patient's dementia. PMHx/PSHx: Mediastinal mass CHF Dementia Afib HTN Alzheimers disease SOCIAL HISTORY: Patient lives at home. PHYSICAL EXAM: GENERAL: Awake, alert, well-appearing, in no distress HENT: Normocephalic, atraumatic. Oropharynx unremarkable. EYES: PERRL. Normal conjunctiva. Sclera non-icteric. NECK: Inspection normal. Non-tender. Supple. No nuchal rigidity. FROM. No masses. RESPIRATORY: Bilateral wheezing, increased respiratory effort. No rales. CARDIAC: Normal rate. Normal rhythm. No murmurs. No rubs. Extremities warm and w ell perfused. Pulses equal. No JVD. GI: Soft, non-distended. No tenderness to palpation. No rebound or guarding. No masses. RECTAL: Deferred. MUSCULOSKELETAL: Atraumatic. Chest examination reveals no tenderness. The back is symmetrical on inspection without obvious abnormality. There is no CVA tenderness to palpation. No joint edema. LOWER EXTREMITIES: Trace lower extremity edema. Chronic skin discoloration of the bilateral lower extremities. Calves are equal size bilaterally and non- tender. NEURO: Demented sensorium. No sensory or motor deficits noted. SKIN: No rash or jaundice noted. EMERGENCY DEPARTMENT COURSE: 2037: Past medical records reviewed. The patient was evaluated in room C1B, and a complete history and physical examination were performed. 2114: I discussed the case with Dr. [facility] Hospitalist who accepts the patient for further evaluation. MEDICAL DECISION MAKING: C1 Nursing notes reviewed and agree them. Additional history obtained from patient's daughter. The patient's history was concerning for an unwitnessed fall, vomiting, possible aspiration. Differential diagnosis: Etiologies such as closed head injury, SDH, ICH, aspiration pneumonia, pneumonitis, metabolic, infection, hypo/hyperglycemia, electrolyte abnormalities, cardiac sources, intracerebral event, toxicologic, neurologic, as well as others were entertained. Physical examination: As above. ER treatment provided: IV Lock DuoNeb IV Zosyn IV vancomycin Diagnostics interpretation by me: ECG: No acute ischemia. The labs revealed a leukocytosis on CBC. Chemistry panel unremarkable.\ Imaging studies: Chest x-ray was performed and revealed bilateral infiltrates. CT scan of the head was negative. Consultation: A consultation was placed with the hospitalist. The case was discussed and diagnostics were reviewed. The patient was evaluated in the ER for further treatment. IMPRESSION: Pneumonia Fall PLAN: Admission The scribe's documentation has been prepared under my direction and personally reviewed by me in its entirety. I confirm that the note above accurately reflects all work, treatment, procedures, and medical decision making performed by me. 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 Hypokalemia Edema Diastolic dysfunction Diastolic congestive heart failure Depression Dementia, in, senility Cardiac pacemaker AF (paroxysmal atrial fibrillation) Apnea, sleep Hypertension Alzheimers disease Asthma Glaucoma High cholesterol Obesity Surgical History History of arthroscopic knee surgery History of eye surgery History of permanent cardiac pacemaker placement History of umbilical hernia repair Social History Preferred Language: Chinese Communication Ability: Impaired Chlorine Cell Tender Required: No Beliefs That Will Affect Care: None Current Living Situation: Personal Care Facility Current Living Situation Comment: [place] Feels Safe at Home: Yes Smoking Status: Never smoker Hx Alcohol Use: No Hx Substance Use: No Results & Data Vital Signs Vital Signs - 24 hr 12/06/18 19:30 12/06/18 20:26 12/06/18 20:30 Temperature 36.7 C Temperature Source Oral Sepsis Recent Fever Within 48 Hours No Sepsis New/Unexplained Change in Mental Status No Sepsis Action Taken by Nursing No Action Required Pulse Rate 89 71 Pulse Rate [Left Finger] Pulse Rate from SpO2 Sensor Respiratory Rate 24 20 Respiratory Effort / Characteristics Short of Breath Blood Pressure 121/75 144/72 H Blood Pressure Mean 90 96 Pulse Oximetry 94 96 Oxygen Delivery Method Nasal Cannula Nasal Cannula Oxygen Flow Rate 2 2 12/06/18 21:01 12/06/18 21:17 12/06/18 22:11 Temperature Temperature Source Sepsis Recent Fever Within 48 Hours Sepsis New/Unexplained Change in Mental Status Sepsis Action Taken by Nursing Pulse Rate 73 79 Pulse Rate [Left Finger] 74 Pulse Rate from SpO2 Sensor 73 78 Respiratory Rate 19 24 23 Respiratory Effort / Characteristics Non-Labored Spontaneous Blood Pressure 114/65 136/66 Blood Pressure Mean 81 89 Pulse Oximetry 92 96 92 Oxygen Delivery Method Nasal Cannula Oxygen Flow Rate 3 12/06/18 23:02 12/06/18 23:18 Temperature 36.7 C Temperature Source Oral Sepsis Recent Fever Within 48 Hours Sepsis New/Unexplained Change in Mental Status Sepsis Action Taken by Nursing Pulse Rate 72 Pulse Rate [Left Finger] Pulse Rate from SpO2 Sensor 72 Respiratory Rate 22 Respiratory Effort / Characteristics Blood Pressure 119/66 Blood Pressure Mean 83 Pulse Oximetry 93 Oxygen Delivery Method Room Air Oxygen Flow Rate 3 Home Medications Current Medication List: was personally reviewed by me Laboratory Data Attestation: I reviewed the patient's lab results. Result diagrams: 12/06/18 21:36 12/06/18 21:36 Lab Results 12/06/18 12/06/18 12/06/18 Range/Units 21:36 21:36 21:38 WBC 11.96 H (4.8-10.8) K/uL RBC 3.94 L (4.2-5.4) M/uL Hgb 12.1 (12.0-16.0) g/dL Hct 37.0 (37-47) % MCV 93.9 (80-100) fL MCH 30.7 (25-34) pg MCHC 32.7 (32-36) g/dL RDW Std Deviation 49.1 H (36.4-46.3) fL RDW Coeff of Kerry 14.4 (11.5-14.5) % Plt Count 265 (130-400) K/uL MPV 10.0 (7.4-10.4) fL Immature Gran % (Auto) 2.4 % Neut % (Auto) 70.5 % Lymph % (Auto) 12.6 % Bulloch % (Auto) 6.2 % Eos % (Auto) 8.0 % Baso % (Auto) 0.3 % Immature Gran # (Auto) 0.29 H (0.00-0.02) K/uL Neut # (Auto) 8.42 H (1.4-6.5) K/uL Lymph # (Auto) 1.51 (1.2-3.4) K/uL Bulloch # (Auto) 0.74 H (0.11-0.59) K/uL Eos # (Auto) 0.96 H (0-0.5) K/uL Baso # (Auto) 0.04 (0-0.2) K/uL ABG pH 7.49 H (7.35-7.45) ABG pCO2 38 (35-46) mmHg ABG pO2 67 L (80-95) mm/Hg ABG HCO3 28 H (19-24) mmol/L ABG O2 Saturation 93.7 (90-95) % ABG Base Excess 4.4 H (-9-1.8) mEq/L Tacho Test Pos (Pos) Barometric Pressure 734.8 mm/Hg Oxygen Given 3 LITERS Sodium 134 L (136-145) mmol/L Potassium 3.3 L (3.5-5.1) mmol/L Chloride 98 (98-107) mmol/L Carbon Dioxide 28 (21-32) mmol/L Anion Gap 8.0 (3-11) BUN 15 (7-18) mg/dl Creatinine 0.90 (0.6-1.2) mg/dl Est Cr Clr Drug Dosing Not Reportable Est GFR ( Amer) 67.1 Est GFR (Non-Af Amer) 57.9 BUN/Creatinine Ratio 16.3 (10-20) Glucose 114 H (70-99) mg/dl Calcium 8.4 L (8.5-10.1) mg/dl Magnesium 2.1 (1.8-2.4) mg/dl Total Bilirubin 0.4 (0.2-1) mg/dl AST 20 (15-37) U/L ALT 24 (12-78) U/L Alkaline Phosphatase 66 (45-117) U/L Total Protein 7.1 (6.4-8.2) gm/dl Albumin 2.4 L (3.4-5.0) gm/dl Globulin 4.7 H (2.5-4.0) gm/dl Albumin/Globulin Ratio 0.5 L (0.9-2) TSH 3.300 (0.300-4.500) uIu/ml Administered Medications Discontinued Medications Albuterol (Duoneb) 3 ml NEB NOW STA Stop: 12/06/18 20:45 Last Admin: 12/06/18 21:17 Dose: 3 ml Documented by: [id number] Piperacillin Sod/Tazobactam Sod (Zosyn) 4.5 gm in 120 mls @ 240 mls/hr IV NOW ONE Stop: 12/06/18 21:13 Last Infusion: 12/06/18 22:12 Dose: 0 mls/hr Documented by: [id number] Admin: 12/06/18 21:23 Dose: 240 mls/hr Documented by: [id number] Vancomycin HCl 2,500 mg/ (Sodium Chloride) 550 mls @ 200 mls/hr IV NOW ONE Stop: 12/06/18 23:28 Last Infusion: 12/06/18 23:24 Dose: 0 mls/hr Documented by: [id number] Admin: 12/06/18 22:35 Dose: 200 mls/hr Documented by: [id number] Imaging Data Radiologist's Impression: Radiology results as stated below per my review and the radiologist's interpretation: XR chest 1V portable CLINICAL HISTORY: weakness COMPARISON STUDY: Chest radiograph November 15, 2018. FINDINGS: Dual lead left subclavian pacemaker is in place. There is moderate cardiomegaly. Interstitial thickening and bilateral opacities have progressed. There is no pneumothorax. There may be a small left pleural effusion. IMPRESSION: 1. Progression of interstitial thickening and bilateral opacities which may reflect pulmonary edema or pneumonia. Radiographic follow-up to ensure resolution is recommended. 2. Moderate cardiomegaly. Electronically signed by: Marco Ribeiro M.D. 12/06/2018 8:[address] OF THE HEAD WITHOUT CONTRAST CLINICAL HISTORY: Fall. COMPARISON STUDY: Head CT November 10, 2018. CT DOSE: 1284.19 mGy.cm TECHNIQUE: Helical axial images of the head were obtained without IV contrast. Automated exposure control was utilized for the study. A dose lowering technique was utilized adhering to the principles of ALARA. FINDINGS: No acute intracranial hemorrhage, midline shift or mass effect is present. Ventricular system is stable. The basilar cisterns are patent. There are no extra axial collections. White matter hypodensities are unchanged. These reflect small vessel disease. There is no calvarial fracture. IMPRESSION: 1. No acute intracranial findings. 2. No calvarial fracture. 3. Exam mildly compromised by motion artifact. Electronically signed by: Marco Ribeiro M.D. 12/06/2018 10:19 PM ECG Data Attestation: I personally reviewed and interpreted this ECG as follows: Indication: weakness Rate (beats per minute): 75 Rhythm: other (paced rhythm ) Findings: + other (poor baseline ), + nonspecific-ST abn and + paced rhythm; no PVC and no ST elevation Blood Pressure Blood Pressure Findings: Normal blood pressure Discharge Plan Visit Data Chief Complaint: Fall Stated Complaint: fall/ eval ED Provider: Vladimir Marroquin Discharge Problem: Pneumonia, Fall Patient Disposition: Admitted As Inpatient Discharge Instructions Interventions: ED Discharge Assessment Last Done: 12/06/18 23:18 Forms Stand Alone Forms: My [facility] [employer] Prescriptions Prescriptions: No Action spironolactone 25 mg tablet 25 mg PO DAILY Qty: 90 RF: 0 torsemide 20 mg tablet 60 mg PO BID RF: 0 metolazone 2.5 mg Tablet 2.5 mg PO DAILY PRN (Reason: Wt gain>3lbs/day or >5lbs/week) RF: 0 Eliquis 5 mg Tablet 5 mg PO BID Qty: 60 RF: 0 digoxin 125 mcg Tablet 0.125 mg PO DAILY@1600 Qty: 30 RF: 0 daptomycin 500 mg recon soln 500 mg IV DAILY Qty: 38 RF: 0 albuterol sulfate 2.5 mg /3 mL (0.083 %) Solution For Nebulization 2.5 mg INHALATION QID PRN (Reason: Shortness Of Breath Or Wheezing) RF: 0 metoprolol succinate [Toprol XL] 50 mg tablet extended release 24 hr 50 mg PO DAILY RF: 0 diltiazem HCl 30 mg Tablet 30 mg PO TID RF: 0 calcium carbonate-vitamin D3 [Calcium 500 + D] 500 mg(1,250mg) -200 unit Tablet 1 tab PO DAILY RF: 0 ipratropium-albuterol 0.5 mg-3 mg(2.5 mg base)/3 mL Solution For Nebulization 3 ml INHALATION Q6 PRN (Reason: Shortness Of Breath Or Wheezing) RF: 0 loperamide 2 mg Capsule 2 mg PO Q4 PRN (Reason: Diarrhea) RF: 0 donepezil [Aricept] 10 mg tablet 10 mg PO HS RF: 0 diphenhydramine HCl [Banophen] 25 mg Tablet 25 mg PO Q6 PRN (Reason: itch/rash) RF: 0 budesonide [Pulmicort] 0.5 mg/2 mL suspension for nebulization 1 vial Inhalation BID RF: 0 nystatin 100,000 unit/gram Powder 1 applic TOPICAL TID PRN (Reason: Rash) RF: 0 sertraline [Zoloft] 50 mg tablet 50 mg PO DAILY RF: 0 memantine [Namenda] 5 mg tablet 5 mg PO DAILY RF: 0 Breo Ellipta 200-25 mcg/dose blister with device 1 puff Inhalation DAILY RF: 0 potassium chloride [Klor-Con M20] 20 mEq tablet,ER particles/crystals 20 meq PO BID Qty: 60 RF: 1 acetaminophen [Tylenol] 325 mg Tablet 650 mg PO Q6H PRN (Reason: Pain) RF: 0 docusate sodium 100 mg Tablet 100 mg PO DAILY RF: 0 Referrals Referrals: Ghada Adamson [Primary Care Provider] - Discharge Problem: Pneumonia Qualifiers: Pneumonia type: due to unspecified organism Laterality: bilateral Lung location: unspecified part of lung Qualified Code(s): J18.9 - Pneumonia, unsp ecified organism Fall Qualifiers: Encounter type: initial encounter Qualified Code(s): W19.XXXA - Unspecified f all, initial encounter The scribe's documentation has been prepared under my direction and personally reviewed by me in its entirety. I confirm that the note above accurately reflects all work, treatment, procedures, and medical decision making performed by me.
[2018-12-07] MEDS ORDERED: ALUMINUM/MAGNESIUM SUSP 30 ML UDC PO PRN (00:22)
[2018-12-07] MEDS ORDERED: POLYETHYLENE (MIRALAX) 17 GM PACK PO PRN (00:22)
[2018-12-07] MEDS ORDERED: BISACODYL 10 MG SUPP PR PRN (00:22)
[2018-12-07] MEDS ORDERED: MAGNESIUM HYDROXIDE SUSP 30 ML UDC PO PRN (00:22)
[2018-12-07] MEDS ORDERED: ONDANSETRON INJ 2 MG/ML 2 ML VIAL IV PRN (00:22)
[2018-12-07] MEDS: APIXABAN 5 MG TABLET PO SCH ×3 (01:31→20:24)
[2018-12-07] MEDS: PIPERACILLIN/TAZOBACTAM 4.5 GM in DEXTROSE 5% 100 ML IV SCH ×3 (01:36→18:40)
[2018-12-07 01:59] LABS: Appearance Urine Clear (Clear); Bilirubin Urine Negative (Negative); Blood Urine Negative (Negative); Color Urine Yellow; Glucose Urine UA Negative (Negative); Ketones Urine Negative (Negative); Leukocyte Esterase Urine Negative (Negative); Nitrite Urine Negative (Negative); Protein Urine Negative (Negative); Specific Gravity Urine 1.017 (1.000-1.030); Urobilinogen Urine Negative (Negative)
--- NOTE | 2018-12-07 02:34 | History & Physical Report ---
Date of Service December 07, 2018 Patient was seen and examined on December 06, 2018 Assessment & Plan (1) Pneumonia: Pneumonia involving right lung, probably aspiration- Admit to monitored bed. Vancomycin IV and Zosyn IV per pharmacokinetic monitoring. Duonebs every 4 hours while awake and every 2 hours when necessary. Recent enterococcus infection- Previously on daptomycin IV, but since has a pulmonary issue this time as well, are changing over to vancomycin IV Present on Admission?: Yes (2) AF (paroxysmal atrial fibrillation): Atrial fibrillation/hypertension- Continue apixaban, digoxin, diltiazem. Hold torsemide, spironolactone, metolazone and potassium chloride due to relative dehydrated state. Present on Admission?: Yes (3) Hypertension: See above Present on Admission?: Yes (4) Urinary incontinence: Will place [place] catheter during acute treatment Present on Admission?: Yes (5) Diastolic congestive heart failure: Diuretics on hold as noted above, due to relative dehydrated state. Present on Admission?: Yes (6) Asthma: Usual meds on hold while treating pneumonia. Present on Admission?: Yes (7) Apnea, sleep: CPAP as needed at bedtime Present on Admission?: Yes (8) Dementia, in, senility: Dementia/depression- Continue donepezil, Namenda and sertraline Present on Admission?: Yes (9) Depression: See above Present on Admission?: Yes History of Present Illness Chief Complaint: The patient was brought to the emergency department from [facility], where she was staying while receiving daptomycin IV for an enterococcus infection that was determined during admission from 11/10-11/16/2018. Her daughter reports that after supper, the patient vomited, the daughter was called, and she then brought the patient to the emergency department for assessment. [facility] The patient is a 88-year-old female with a past medical history including recent hospitalization at [facility] from 11/10-11/16/2018, where she was diagnosed with enterococcus infection, and was then discharged to [facility] for continuance of IV daptomycin. The patient became hypoxic after vomiting post supper this evening, was brought to the emergency department, and chest x-ray early on showed a probable right sided aspiration pneumonia. Allergies Allergy/AdvReac Type Severity Reaction Status Date / Time No Known Allergies Allergy Verified 12/06/18 23:08 Home Medications Home Medications Medication Instructions Recorded Confirmed Type [place] Ellipta 1 puff INHALATION DAILY 06/20/18 12/06/18 History budesonide [Pulmicort] 1 vial INHALATION BID 06/20/18 12/06/18 History diphenhydramine HCl [Banophen] 25 mg PO Q6 PRN 06/20/18 12/06/18 History donepezil [Aricept] 10 mg PO HS 06/20/18 12/06/18 History ipratropium-albuterol 3 ml INHALATION Q6 PRN 06/20/18 12/06/18 History loperamide 2 mg PO Q4 PRN 06/20/18 12/06/18 History memantine [Namenda] 5 mg PO DAILY 06/20/18 12/06/18 History nystatin 1 applic TOPICAL TID PRN 06/20/18 12/06/18 History sertraline [Zoloft] 50 mg PO DAILY 06/20/18 12/06/18 History potassium chloride [Klor-Con M20] 20 meq PO BID #60 tab 06/24/18 12/06/18 Rx metolazone 2.5 mg PO DAILY PRN 11/10/18 12/06/18 History torsemide 60 mg PO BID 11/10/18 12/06/18 History apixaban [Eliquis] 5 mg PO BID #60 tab 11/16/18 12/06/18 Rx daptomycin 500 mg IV DAILY #38 ea 11/16/18 12/06/18 Rx digoxin 0.125 mg PO DAILY@1600 #30 tab 11/16/18 12/06/18 Rx acetaminophen [Tylenol] 650 mg PO Q6H PRN 11/19/18 12/06/18 History docusate sodium 100 mg PO DAILY 11/19/18 12/06/18 History spironolactone 25 mg tablet 25 mg PO DAILY #90 tab 12/03/18 12/06/18 History albuterol sulfate 2.5 mg INHALATION QID PRN 12/06/18 12/06/18 History calcium carbonate-vitamin D3 1 tab PO DAILY 12/06/18 12/06/18 History [Calcium 500 + D] diltiazem HCl 30 mg PO TID 12/06/18 12/06/18 History metoprolol succinate [Toprol XL] 50 mg PO DAILY 12/06/18 12/06/18 History Past Med/Surg History Medical History Urinary incontinence Situational anxiety 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 Hypokalemia Edema Diastolic dysfunction Diastolic congestive heart failure Depression Dementia, in, senility Cardiac pacemaker AF (paroxysmal atrial fibrillation) Apnea, sleep Hypertension Alzheimers disease Asthma Glaucoma High cholesterol Obesity Surgical History History of arthroscopic knee surgery History of eye surgery History of permanent cardiac pacemaker placement History of umbilical hernia repair Social History Preferred Language: Nauruan Communication Ability: Effective Business Functional Analyst Required: No Beliefs That Will Affect Care: None Current Living Situation: Personal Care Facility Current Living Situation Comment: [facility] Other Information That Helps Us Care for You: No Feels Safe at Home: Yes Safety Concerns: Feels Safe At This Time Smoking Status: Never smoker Hx Alcohol Use: No Hx Substance Use: No Review of Systems Review of Systems: The patient denies chest pain, palpitations, lower extremity swelling, sore throat, fevers, chills, sweats,diarrhea , constipation, abdominal pain, pelvic pain, blood in urine or stool, dysuria, urinary frequency or urgency, lightheadedness, dizziness, headache, loss of consciousness, rash, abnormal bruising or bleeding, imbalance, focal or generalized weakness, numbness or tingling in arms or legs, generalized arthralgias or myalgias, back or neck pain, or night sweats. The review of systems is otherwise negative other than for that already noted above, and at least 10 systems have been reviewed. The patient herself is only able to partially contribute to review of systems due to her underlying dementia, and her daughter completes most of the HPI and review of systems for her. Physical Exam Physical Exam: The patient is awake, alert and oriented 3, well developed and well nourished, normocephalic and atraumatic, lying in bed and in no acute distress. HEENT--PERRL, EOMI, mucous membranes and oropharynx normal. Neck--supple. No JVD. No bruits. Thyroid normal, trachea midline, no debbie nopathy. Heart--normal S1 and S2. No murmurs, rubs or gallops. Lungs--coarse breath sounds right greater than left. Abdomen--normal bowel sounds and soft. Nontender. Nondistended. Extremities--no cyanosis or clubbing. No edema. There are good distal pulses b/l. Dermatologic--normal skin turgor, normal color, no abnormal lymph nodes, no rash. Neurologic--cranial nerves II through XII grossly intact. Rheumatologic--normal range of motion. Psychiatric--normal affect. Results & Data Vital Signs (Past 12 Hours) Vital Signs Temp Pulse Pulse Resp BP BP Pulse Ox 12/07/18 00:23 98.2 F 86 23 110/69 91 12/06/18 23:18 98.1 F 12/06/18 23:02 72 22 119/66 93 12/06/18 22:11 79 23 136/66 92 12/06/18 21:17 74 24 96 12/06/18 21:01 73 19 114/65 92 12/06/18 20:30 71 20 144/72 H 12/06/18 20:26 96 12/06/18 19:30 98.1 F 89 24 121/75 94 Laboratory Results Laboratory Results WBC 11.96 K/uL (4.8-10.8) H 12/06/18 21:36 RBC 3.94 M/uL (4.2-5.4) L 12/06/18 21:36 Hgb 12.1 g/dL (12.0-16.0) 12/06/18 21:36 Hct 37.0 % (37-47) 12/06/18 21:36 MCV 93.9 fL (80-100) 12/06/18 21:36 MCH 30.7 pg (25-34) 12/06/18 21:36 MCHC 32.7 g/dL (32-36) 12/06/18 21:36 RDW Std Deviation 49.1 fL (36.4-46.3) H 12/06/18 21:36 RDW Coeff of Kerry 14.4 % (11.5-14.5) 12/06/18 21:36 Plt Count 265 K/uL (130-400) 12/06/18 21:36 MPV 10.0 fL (7.4-10.4) 12/06/18 21:36 Immature Gran % (Auto) 2.4 % 12/06/18 21:36 Neut % (Auto) 70.5 % 12/06/18 21:36 Lymph % (Auto) 12.6 % 12/06/18 21:36 Weston % (Auto) 6.2 % 12/06/18 21:36 Eos % (Auto) 8.0 % 12/06/18 21:36 Baso % (Auto) 0.3 % 12/06/18 21:36 Immature Gran # (Auto) 0.29 K/uL (0.00-0.02) H 12/06/18 21:36 Neut # (Auto) 8.42 K/uL (1.4-6.5) H 12/06/18 21:36 Lymph # (Auto) 1.51 K/uL (1.2-3.4) 12/06/18 21:36 Weston # (Auto) 0.74 K/uL (0.11-0.59) H 12/06/18 21:36 Eos # (Auto) 0.96 K/uL (0-0.5) H 12/06/18 21:36 Baso # (Auto) 0.04 K/uL (0-0.2) 12/06/18 21:36 ABG pH 7.49 (7.35-7.45) H 12/06/18 21:38 ABG pCO2 38 mmHg (35-46) 12/06/18 21:38 ABG pO2 67 mm/Hg (80-95) L 12/06/18 21:38 ABG HCO3 28 mmol/L (19-24) H 12/06/18 21:38 ABG O2 Saturation 93.7 % (90-95) 12/06/18 21:38 ABG Base Excess 4.4 mEq/L (-9-1.8) H 12/06/18 21:38 Tacho Test Pos (Pos) 12/06/18 21:38 Barometric Pressure 734.8 mm/Hg 12/06/18 21:38 Oxygen Given 3 LITERS 12/06/18 21:38 Sodium 134 mmol/L (136-145) L 12/06/18 21:36 Potassium 3.3 mmol/L (3.5-5.1) L 12/06/18 21:36 Chloride 98 mmol/L (98-107) 12/06/18 21:36 Carbon Dioxide 28 mmol/L (21-32) 12/06/18 21:36 Anion Gap 8.0 (3-11) 12/06/18 21:36 BUN 15 mg/dl (7-18) 12/06/18 21:36 Creatinine 0.90 mg/dl (0.6-1.2) 12/06/18 21:36 Est Cr Clr Drug Dosing Not Reportable 12/06/18 21:36 Est GFR ( Amer) 67.1 12/06/18 21:36 Est GFR (Non-Af Amer) 57.9 12/06/18 21:36 BUN/Creatinine Ratio 16.3 (10-20) 12/06/18 21:36 Glucose 114 mg/dl (70-99) H 12/06/18 21:36 Calcium 8.4 mg/dl (8.5-10.1) L 12/06/18 21:36 Magnesium 2.1 mg/dl (1.8-2.4) 12/06/18 21:36 Total Bilirubin 0.4 mg/dl (0.2-1) 12/06/18 21:36 AST 20 U/L (15-37) 12/06/18 21:36 ALT 24 U/L (12-78) 12/06/18 21:36 Alkaline Phosphatase 66 U/L (45-117) 12/06/18 21:36 Total Protein 7.1 gm/dl (6.4-8.2) 12/06/18 21:36 Albumin 2.4 gm/dl (3.4-5.0) L 12/06/18 21:36 Globulin 4.7 gm/dl (2.5-4.0) H 12/06/18 21:36 Albumin/Globulin Ratio 0.5 (0.9-2) L 12/06/18 21:36 TSH 3.300 uIu/ml (0.300-4.500) 12/06/18 21:36 Urine Color Yellow 12/06/18 01:49 Urine Appearance Clear (Clear) 12/06/18 01:49 Urine pH 5.0 (4.5-7.5) 12/06/18 01:49 Ur Specific Allen 1.017 (1.000-1.030) 12/06/18 01:49 Urine Protein Negative (Negative) 12/06/18 01:49 Urine Glucose (UA) Negative (Negative) 12/06/18 01:49 Urine Ketones Negative (Negative) 12/06/18 01:49 Urine Blood Negative (Negative) 12/06/18 01:49 Urine Nitrite Negative (Negative) 12/06/18 01:49 Urine Bilirubin Negative (Negative) 12/06/18 01:49 Urine Urobilinogen Negative (Negative) 12/06/18 01:49 Ur Leukocyte Esterase Negative (Negative) 12/06/18 01:49 Nasal Screen MRSA (PCR) Negative (Negative) 12/07/18 00:52 Diagnostic Findings [place], [place] [phone] CT Scan Report Patient: AYDIN ANSARI Date: 12/06/18 MR#: [id number]: [address] Bro Acct ID:[id number]: POLLY Date: 1930[facility] Zip: [place] [address] Age: 88Location: ED Sex: F Room/Bed: Att Phy: Diagnosis: fall/ eval Lynette Phy: Ghada AdamsonSer Date: 12/06/18 Fam Phy: Interpreting Phy: Marco Ribeiro MD Admit Phy: Ordering Phy: Vladimir Marroquin MD cc: ~ CT OF THE HEAD WITHOUT CONTRAST CLINICAL HISTORY: Fall. COMPARISON STUDY: Head CT November 10, 2018. CT DOSE: 1284.19 mGy.cm TECHNIQUE: Helical axial images of the head were obtained without IV contrast. Automated exposure control was utilized for the study. A dose lowering technique was utilized adhering to the principles of ALARA. FINDINGS: No acute intracranial hemorrhage, midline shift or mass effect is present. Ventricular system is stable. The basilar cisterns are patent. There are no extra axial collections. White matter hypodensities are unchanged. These reflect small vessel disease. There is no calvarial fracture. IMPRESSION: 1. No acute intracranial findings. 2. No calvarial fracture. 3. Exam mildly compromised by motion artifact. Electronically signed by: Marco Ribeiro M.D. 12/06/2018 10:19 PM Dictated: 12/06/182216 Transcribed: 12/06/182216 [phone] Report Patient: AYDIN ANSARI Date: 12/06/18 MR#: [id number]: [address]ER[address] MASTERSON Acct ID:[id number]: ELMCROFT Date: 1930ity Zip: [place] [address] Age: 88Location: ED Sex: F Room/Bed: Att Phy: Diagnosis: fall/ eval Lynette Phy: ElmcroftService Date: 12/06/18 Fam Phy: Interpreting Phy: Marco Ribeiro MD Admit Phy: Ordering Phy: Vladimir Marroquin MD cc: ~ XR chest 1V portable CLINICAL HISTORY: weakness COMPARISON STUDY: Chest radiograph November 15, 2018. FINDINGS: Dual lead left subclavian pacemaker is in place. There is moderate cardiomegaly. Interstitial thickening and bilateral opacities have progressed. There is no pneumothorax. There may be a small left pleural effusion. IMPRESSION: 1. Progression of interstitial thickening and bilateral opacities which may reflect pulmonary edema or pneumonia. Radiographic follow-up to ensure resolution is recommended. 2. Moderate cardiomegaly. Electronically signed by: Marco Ribeiro M.D. 12/06/2018 8:23 PM Dictated: 12/06/182017 Transcribed: 12/06/182017 Code Status & VTE Plan VTE Prophylaxis Plan VTE Prophylaxis will be ordered: Yes PG Care Time/CCT Total # of Minutes Spent Total Time Spent with Patient: Total time spent is greater than 50% in coordination of care (as documented) at patient's floor/unit and/or counseling patient: (1) Pneumonia Laterality: bilateral Lung location: unspecified part of lung Pneumonia type: due to unspecified organism Qualified Code(s): J18.9 - Pneumonia, unspecified organism (2) Hypertension Hypertension type: essential hypertension Qualified Code(s): I10 - Essential (primary) hypertension (3) Diastolic congestive heart failure Heart failure chronicity: acute on chronic Qualified Code(s): I50.33 - Acute on chronic diastolic (congestive) heart failure
[2018-12-07] MEDS ORDERED: Nursing to Pharmacy Communication ONE ×2 (07:50→22:11)
[2018-12-07] MEDS: dilTIAZem HCL 30 MG TAB PO SCH ×3 (08:38→20:25)
[2018-12-07] MEDS: SERTRALINE HCL 50 MG TABLET PO SCH (08:38)
[2018-12-07] MEDS: MEMANTINE HCL 5 MG TAB PO SCH (08:39)
[2018-12-07] MEDS: DAPTOmycin 475 MG in SYRINGE 0 ML IV SCH (10:02)
--- NOTE | 2018-12-07 13:08 | Hospitalist Progress Note ---
Date of Service December 07, 2018 Assessment & Plan (1) Pneumonia: Admit to inpatient and observe on observation on telemetry to rule out pneumonia. Possible pneumonia versus pulmonary edema with some opacities. Could be related to involving right lung, probably do to aspiration. Mildly elevated white blood cell count to 11,000, trend down Vancomycin IV switched to daptomycin IV and continued with Zosyn IV per pharmacokinetic monitoring. Added Flagyl 500 every 8 hours IV empirically Duonebs every 4 hours while awake and every 2 hours when necessary. Follow-up blood cultures DVT prophylaxis apixaban CODE STATUS DNR/DNI (2) AF (paroxysmal atrial fibrillation): Atrial fibrillation/hypertension- Continue apixaban, digoxin, diltiazem. Restarted torsemide, spironolactone, metolazone and potassium chloride (3) Hypertension: See above (4) Urinary incontinence: Will place [place] catheter during acute treatment (5) Diastolic congestive heart failure: Diuretics on hold as noted above, due to relative dehydrated state. (6) Asthma: Usual meds on hold while treating pneumonia. (7) Apnea, sleep: CPAP as needed at bedtime (8) Dementia, in, senility: Dementia/depression- Continue donepezil, Namenda and sertraline (9) Depression: See above Subjective Patient seen and examined at the bedside. She came to the emergency department from [facility] where she was staying while receiving daptomycin IV for an enterococcus infection that she had from November 10 through November 16, 2018 on her last admission. Apparently patient vomited after the dinner and she brought patient in for further assessment. Today patient is sitting up in the chair resting comfortably she appears to be euvolemic and eupneic. Her CT of the scan was normal her chest x-ray shows possible pulmonary edema with some opacities. Patient is poor historian. Does not have any complaint at this time. She denies fever chills headache chest pain shortness of breath abdominal pain frequency urgency hematuria melena syncope near syncope. Patient white blood cell count if is very mildly elevated to 11,000 and that needs to be trended down. She was started on vancomycin and Zosyn last night but since she was already on daptomycin as superior medication we will continue daptomycin IV as patient is what was prior on it. For possible aspiration pneumonia coverage will add Flagyl empirically p.o. Review of Systems Review of Systems: All systems reviewed & are unremarkable except as noted in HPI & below Physical Exam Constitutional: WD/WN, vitals as above well developed and + morbidly obese Eyes: PERRL, conjunctivae normal, anicteric sclerae ENMT: external ear and nose normal, oropharynx normal Neck: trachea midline, no thyromegaly Respiratory: normal respiratory effort Auscultation: + wheezes Cardiovascular: Rate/Rhythm: regular rhythm Palpation: + palpable S3 Chest (Breasts): normal inspection/palpation of breasts Gastrointestinal (Abdomen): normal bowel sounds, soft, nontender, no hepatosplenomegaly Musculoskeletal: no cyanosis or clubbing, extremities motor strength 5/5 Skin: + dry skin Neurologic: patellar DTR's 2+ bilat, sensation intact Results & Data Vital Signs (Past 12 Hours) Vital Signs Temp Pulse Pulse Resp BP Pulse Ox 12/07/18 10:52 36.9 C 76 26 H 145/76 H 96 12/07/18 08:09 36.8 C 73 18 130/51 L 95 12/07/18 08:00 79 12/07/18 03:00 36.8 C 77 23 105/51 L 93 PG Care Time/CCT Total # of Minutes Spent Total Time Spent with Patient: Total time spent is greater than 50% in coordination of care (as documented) at patient's floor/unit and/or counseling patient: (1) Pneumonia Laterality: bilateral Lung location: unspecified part of lung Pneumonia type: due to unspecified organism Qualified Code(s): J18.9 - Pneumonia, unspecified organism (2) Hypertension Hypertension type: essential hypertension Qualified Code(s): I10 - Essential (primary) hypertension (3) Diastolic congestive heart failure Heart failure chronicity: acute on chronic Qualified Code(s): I50.33 - Acute on chronic diastolic (congestive) heart failure
[2018-12-07] MEDS: POTASSIUM CHLORIDE 20 MEQ TABCR PO SCH (13:34)
[2018-12-07] MEDS: SPIRONOLACTONE 25 MG TAB PO SCH (14:31)
[2018-12-07] MEDS: TORSEMIDE 20 MG TAB PO SCH ×2 (14:31→20:24)
[2018-12-07] MEDS ORDERED: DIGOXIN 0.125 MG TAB PO SCH (16:00)
[2018-12-07] MEDS ORDERED: metOLazone 2.5 MG TABLET PO SCH (18:30)
[2018-12-07] MEDS ORDERED: ALBUTEROL 0.083% NEBU SOLN 3 ML VIAL INH PRN (18:39)
[2018-12-07] MEDS ORDERED: ACETAMINOPHEN 325 MG TAB PO PRN (18:39)
[2018-12-07] MEDS ORDERED: LOPERAMIDE HCL 2 MG CAP PO PRN (18:39)
[2018-12-07] MEDS ORDERED: DONEPEZIL HCL 10 MG TAB PO SCH (21:00)
[2018-12-07] MEDS ORDERED: dilTIAZem HCL 30 MG TAB PO SCH (21:00)
[2018-12-07] MEDS ORDERED: METOPROLOL TARTRATE 1 MG/ML VIAL IV ONE (21:58)
[2018-12-07] MEDS: METOPROLOL TARTRATE 1 MG/ML VIAL IV STA ×2 (22:05→22:06)
[2018-12-07] MEDS ORDERED: METOPROLOL TARTRATE 1 MG/ML VIAL IV STA (22:29)
[2018-12-08] MEDS: LEVALBUTEROL HCL 0.63 MG/3 ML NEB NEB SCH ×4 (00:17→19:27)
[2018-12-08] MEDS: IPRATROPIUM BROMIDE NEB SOLN 0.02% 2.5 ML VIAL INH SCH ×4 (00:17→19:27)
[2018-12-08] MEDS ORDERED: POTASSIUM CHLORIDE 20 MEQ TABCR PO STA (00:41)
[2018-12-08] MEDS ORDERED: XOPENEX/ATROVENT 0.63mg/0.5MG NEB COMBO NEB SCH (01:00)
[2018-12-08] MEDS: ALBUMIN 25% 50 ML IV SCH ×2 (01:05→01:55)
[2018-12-08] MEDS ORDERED: DIGOXIN 250 MCG in SYRINGE 9 ML IV STA (01:48)
[2018-12-08] MEDS ORDERED: dilTIAZem HCl 5 MG/ML 5 ML VIAL IV STA (02:28)
[2018-12-08] MEDS: POTASSIUM CHLORIDE / WTR 10 MEQ/100 ML PLCT IV SCH ×4 (03:30→06:22)
[2018-12-08 04:08] LABS: Basophils # (auto) 0.04 K/uL (0-0.2); Basophils % (auto) 0.4 %; Eosinophils # (auto) 0.59 K/uL (0-0.5); Eosinophils % (auto) 6.4 %; Hematocrit (blood only) 38.2 % (37-47); Hemoglobin 12.4 g/dL (12.0-16.0); Immature Granulocytes % (auto) 1.1 %; Lymphocytes # (auto) 1.06 K/uL (1.2-3.4); Lymphocytes % (auto) 11.6 %; Mean Corpuscular Volume 95.5 fL (80-100); Mean Platelet Volume 9.6 fL (7.4-10.4); Monocytes # (auto) 0.58 K/uL (0.11-0.59); Monocytes % (auto) 6.3 %; Neutrophils % (auto) 74.2 %; Platelet Count 262 K/uL (130-400); RDW Coefficient of Variation 14.5 % (11.5-14.5); RDW Standard Deviation 51.2 fL (36.4-46.3); White Blood Count 9.17 K/uL (4.8-10.8)
[2018-12-08 04:10] LABS: Mean Corpuscular Hgb Conc 32.5 g/dL (32-36)
[2018-12-08 04:22] LABS: Albumin Level 2.8 gm/dl (3.4-5.0); BUN Creatinine Ratio 11.5 (10-20); Calcium 8.8 mg/dl (8.5-10.1); Creatinine Clr Calc Pharmacy 48.4 ml/min; Est GFR (African American) 56.3; Est GFR (Non-African American) 48.6; Magnesium 2.1 mg/dl (1.8-2.4); Potassium 3.2 mmol/L (3.5-5.1)
[2018-12-08 04:27] LABS: Albumin Globulin Ratio 0.6 (0.9-2); Bilirubin,Total 0.7 mg/dl (0.2-1); Globulin 4.7 gm/dl (2.5-4.0); Total Protein 7.5 gm/dl (6.4-8.2)
[2018-12-08 04:38] LABS: Polychromasia 1+
[2018-12-08] MEDS: PIPERACILLIN/TAZOBACTAM 4.5 GM in DEXTROSE 5% 100 ML IV SCH ×3 (05:46→21:34)
[2018-12-08] MEDS: BUDESONIDE 0.5 MG/2 ML VIAL (PULMICORT) INH SCH ×2 (07:05→19:27)
[2018-12-08] MEDS: ACETAMINOPHEN 325 MG TAB PO PRN (07:56)
[2018-12-08] MEDS: SPIRONOLACTONE 25 MG TAB PO SCH (07:57)
[2018-12-08] MEDS: CALCIUM 600MG + VIT D 400 IU TAB PO SCH (07:58)
[2018-12-08] MEDS: DOCUSATE SODIUM 100 MG CAP PO SCH (08:00)
[2018-12-08] MEDS: APIXABAN 5 MG TABLET PO SCH ×2 (08:01→20:05)
[2018-12-08] MEDS: POTASSIUM CHLORIDE 20 MEQ TABCR PO SCH (08:01)
[2018-12-08] MEDS: dilTIAZem HCL 30 MG TAB PO SCH (08:01)
[2018-12-08] MEDS: MEMANTINE HCL 5 MG TAB PO SCH (08:02)
[2018-12-08] MEDS: SERTRALINE HCL 50 MG TABLET PO SCH (08:02)
[2018-12-08] MEDS ORDERED: DAPTOmycin 500 MG VIAL IV SCH (09:00)
[2018-12-08] MEDS ORDERED: METOPROLOL SUCC 50MG EXT REL TAB PO SCH ×2 (09:00)
[2018-12-08] MEDS: DAPTOmycin 475 MG in SYRINGE 0 ML IV SCH (09:50)
[2018-12-08] MEDS ORDERED: AMIODARONE / D5W 150 MG/100 ML BAG IV ONE (10:15)
[2018-12-08] MEDS ORDERED: AMIODARONE / D5W 360 MG/200 ML BAG IV SCH (10:30)
--- NOTE | 2018-12-08 13:23 | Hospitalist Progress Note ---
Date of Service December 08, 2018 Assessment & Plan (1) Pneumonia: Transferred to MICU because of A. fib's with RVR. Started on amiodarone bolus/drip. Continue following on telemetry closely Seen empiric treatment for pneumonia added Flagyl 500 mg IV every 8 hours. White blood cell count improved from 11,000 9000 today. Continue daptomycin IV and continued with Zosyn IV. Duonebs every 4 hours while awake and every 2 hours when necessary. Follow-up blood cultures DVT prophylaxis apixaban CODE STATUS DNR/DNI (2) AF (paroxysmal atrial fibrillation): Atrial fibrillation/hypertension- Continue apixaban, hold digoxin, diltiazem due to severe interaction with amiodarone. Restarted torsemide, spironolactone, metolazone and potassium chloride (3) Hypertension: See above (4) Urinary incontinence: Will place [place] catheter during acute treatment (5) Diastolic congestive heart failure: Diuretics on hold as noted above, due to relative dehydrated state. (6) Asthma: Usual meds on hold while treating pneumonia. (7) Apnea, sleep: CPAP as needed at bedtime (8) Dementia, in, senility: Dementia/depression- Continue donepezil, Namenda and sertraline (9) Depression: See above Subjective Patient seen and examined at the bedside. Patient started to have A. fib's with RVR last night in 130s and 104 days. Transferred to MICU and started on amiodarone bolus 150/1 mg drip. Continue current medication for aspiration pneumonia and antibiotics. Patient says she did not sleep well last night and feels very tired. Patient denies fever chills chest pain shortness of breath abdominal pain frequency urgency melena and n/v. Stable now in MICU. Discussed with daughter about progress of care and she agrees with it. All questions answered. Review of Systems Review of Systems: All systems reviewed & are unremarkable except as noted in HPI & below Physical Exam Constitutional: WD/WN, vitals as above well developed and + morbidly obese Eyes: PERRL, conjunctivae normal, anicteric sclerae ENMT: external ear and nose normal, oropharynx normal Neck: trachea midline, no thyromegaly Respiratory: normal respiratory effort Auscultation: + wheezes Cardiovascular: Rate/Rhythm: regular rhythm Palpation: + palpable S3 Chest (Breasts): normal inspection/palpation of breasts Gastrointestinal (Abdomen): normal bowel sounds, soft, nontender, no hepatosplenomegaly Musculoskeletal: no cyanosis or clubbing, extremities motor strength 5/5 Skin: + dry skin Neurologic: patellar DTR's 2+ bilat, sensation intact Results & Data Vital Signs (Past 12 Hours) Vital Signs Temp Pulse Pulse Pulse Resp BP BP 12/08/18 12:03 36.8 C 110 H 23 140/80 12/08/18 08:05 36.8 C 111 H 18 96/66 L 12/08/18 08:00 118 H 12/08/18 07:06 68 24 12/08/18 04:00 36.7 C 116 H 22 100/56 L 12/08/18 03:16 107 H 119/73 12/08/18 03:01 106 H 12/08/18 02:38 142 H 112/72 12/08/18 01:51 36.9 C 119 H 22 121/68 Pulse Ox 12/08/18 12:03 92 12/08/18 08:05 93 12/08/18 08:00 12/08/18 07:06 93 12/08/18 04:00 91 12/08/18 03:16 12/08/18 03:01 12/08/18 02:38 12/08/18 01:51 92 PG Care Time/CCT Total # of Minutes Spent Total Time Spent with Patient: Total time spent is greater than 50% in coordination of care (as documented) at patient's floor/unit and/or counseling patient: (1) Pneumonia Laterality: bilateral Lung location: unspecified part of lung Pneumonia type: due to unspecified organism Qualified Code(s): J18.9 - Pneumonia, unspecified organism (2) Hypertension Hypertension type: essential hypertension Qualified Code(s): I10 - Essential (primary) hypertension (3) Diastolic congestive heart failure Heart failure chronicity: acute on chronic Qualified Code(s): I50.33 - Acute on chronic diastolic (congestive) heart failure
[2018-12-08] MEDS: metroNIDAZOLE 500 MG/100 ML BAG IV SCH ×2 (14:20→20:20)
[2018-12-08] MEDS: AMIODARONE / D5W 360 MG/200 ML BAG IV SCH (18:06)
[2018-12-09] MEDS: LEVALBUTEROL HCL 0.63 MG/3 ML NEB NEB SCH ×5 (01:00→19:07)
[2018-12-09] MEDS: IPRATROPIUM BROMIDE NEB SOLN 0.02% 2.5 ML VIAL INH SCH ×5 (01:00→19:07)
[2018-12-09] MEDS ORDERED: SODIUM CHLORIDE 0.9% 1000ML 500 ML IV ONE (02:28)
[2018-12-09] MEDS: POTASSIUM CHLORIDE / WTR 10 MEQ/100 ML PLCT IV SCH ×4 (02:40→05:59)
[2018-12-09] MEDS: ALBUMIN 25% 50 ML IV SCH ×2 (03:28→03:59)
[2018-12-09] MEDS: AMIODARONE / D5W 360 MG/200 ML BAG IV SCH (03:41)
[2018-12-09] MEDS: metroNIDAZOLE 500 MG/100 ML BAG IV SCH (05:35)
[2018-12-09] MEDS: PIPERACILLIN/TAZOBACTAM 4.5 GM in DEXTROSE 5% 100 ML IV SCH ×3 (06:06→21:42)
[2018-12-09 07:51] LABS: Basophils # (auto) 0.04 K/uL (0-0.2); Basophils % (auto) 0.4 %; Eosinophils # (auto) 0.67 K/uL (0-0.5); Eosinophils % (auto) 6.2 %; Hemoglobin 11.2 g/dL (12.0-16.0); Immature Granulocytes # (auto) 0.06 K/uL (0.00-0.02); Immature Granulocytes % (auto) 0.6 %; Lymphocytes # (auto) 1.29 K/uL (1.2-3.4); Mean Corpuscular Hgb Conc 32.9 g/dL (32-36); Mean Corpuscular Volume 93.4 fL (80-100); Mean Platelet Volume 9.7 fL (7.4-10.4); Monocytes # (auto) 0.78 K/uL (0.11-0.59); Monocytes % (auto) 7.2 %; Neutrophils # (auto) 7.92 K/uL (1.4-6.5); Neutrophils % (auto) 73.6 %; Platelet Count 288 K/uL (130-400); RDW Coefficient of Variation 14.5 % (11.5-14.5); RDW Standard Deviation 49.8 fL (36.4-46.3); Red Blood Count 3.64 M/uL (4.2-5.4); White Blood Count 10.76 K/uL (4.8-10.8)
[2018-12-09 08:24] LABS: Albumin Level 2.7 gm/dl (3.4-5.0); BUN Creatinine Ratio 10.5 (10-20); Calcium 8.7 mg/dl (8.5-10.1); Creatinine Clr Calc Pharmacy 49.6 ml/min; Est GFR (African American) 59.1; Potassium 3.7 mmol/L (3.5-5.1)
[2018-12-09 08:29] LABS: Albumin Globulin Ratio 0.6 (0.9-2); Bilirubin,Total 0.6 mg/dl (0.2-1); Globulin 4.2 gm/dl (2.5-4.0); Total Protein 6.9 gm/dl (6.4-8.2)
[2018-12-09] MEDS: CALCIUM 600MG + VIT D 400 IU TAB PO SCH (08:38)
[2018-12-09] MEDS: DOCUSATE SODIUM 100 MG CAP PO SCH (08:38)
[2018-12-09] MEDS: SERTRALINE HCL 50 MG TABLET PO SCH (08:39)
[2018-12-09] MEDS: APIXABAN 5 MG TABLET PO SCH ×2 (08:39→19:38)
[2018-12-09] MEDS: POTASSIUM CHLORIDE 20 MEQ TABCR PO SCH ×3 (08:39→19:37)
[2018-12-09] MEDS: SPIRONOLACTONE 25 MG TAB PO SCH (08:40)
[2018-12-09] MEDS: MEMANTINE HCL 5 MG TAB PO SCH (08:40)
--- NOTE | 2018-12-09 09:34 | Cardiology Consultation ---
Date of Consultation December 09, 2018 Assessment & Plan (1) Diastolic congestive heart failure: She currently has no complaints of breathing difficulty. Her x-ray was suggestive of mild pulmonary edema. Interestingly, during the initial part of her admission she had an aggressive diuresis. An N terminal proBNP obtained this morning was elevated. It seems that her outpatient diuretic regimen had been stopped. Perhaps this was due to concerns over sepsis. However, she appears quite stable and I would advocate reinstitution of her outpatient diuretic regimen including torsemide 60 mg twice daily. (2) Cardiac pacemaker: She is normally functioning dual-chamber pacemaker which was interrogated at her last admission. She has active atrial therapies for reduction in AFib frequency. However, she is known to cycle quite frequently in and out of atrial fibrillation. There was some concern regarding a possible device infection given her bacteremia at that her last admission. However, her current blood cultures are negative and there is no evidence of pocket infection on exam. (3) AF (paroxysmal atrial fibrillation): She has a long history of paroxysmal atrial fibrillation. Evaluation of her device during her last admission reveals frequent cycling in and out of atrial fibrillation. She has no symptoms related to the arrhythmia or associated high heart rates. At the last admission digoxin was added. Her digoxin level at the time of admission was in the normal range. There certainly has been some concern regarding increased mortality in patients with higher digoxin levels. However, I think she could resume her digoxin. In fact, it seems that all of her outpatient rate control medications have been discontinued. I would advocate stopping the amiodarone and restarting her dil tiazem, metoprolol and digoxin. I think she could tolerate higher doses of metoprolol. Her blood pressures appear quite stable and I think 100 mg of Toprol XL daily would be a good option. I do not believe there is a good role for rhythm control at this time. She will need to continue apixaban indefinitely in the absence of contraindication. History of Present Illness Reason for Consultation: Atrial fibrillation Requesting Physician: Maxx Attending Physician: Madonna Sloan MD History of Present Illness Patient is an 88-year-old woman with severe dementia who was recently admitted to [facility] with enterococcal bacteremia. Patient is currently a resident at a nursing facility. She had been discharged on outpatient antibiotic therapy for this infection but was noted by the nursing staff to have vomited. According to the record, there was some concern regarding this event and she was sent to the hospital for evaluation. An x-ray obtained in the emergency room was not normal and she was admitted for presumptive pneumonia. Her antibiotic regimen was changed. Yesterday she appears to have developed atrial fibrillation with high ventricular rates and was started on an amiodarone infusion. Cardiology was consulted as result. This morning the patient did not verbalize any complaints. She does have severe dementia and her history has not been reliable. However, she did deny any pain, chest pain or otherwise. She did not report any breathing difficulty. She believes she may have had breakfast but cannot recall eating anything. She was not aware of her current condition, reason for being in the hospital or where she lived. She could not remember the fact that her daughter works at our facility. Allergies Allergy/AdvReac Type Severity Reaction Status Date / Time No Known Allergies Allergy Verified 12/06/18 23:08 Home Medications Home Medications Medication Instructions Recorded Confirmed Type Star Ellipta 1 puff INHALATION DAILY 06/20/18 12/06/18 History budesonide [Pulmicort] 1 vial INHALATION BID 06/20/18 12/06/18 History diphenhydramine HCl [Banophen] 25 mg PO Q6 PRN 06/20/18 12/06/18 History donepezil [Aricept] 10 mg PO HS 06/20/18 12/06/18 History ipratropium-albuterol 3 ml INHALATION Q6 PRN 06/20/18 12/06/18 History loperamide 2 mg PO Q4 PRN 06/20/18 12/06/18 History memantine [Namenda] 5 mg PO DAILY 06/20/18 12/06/18 History nystatin 1 applic TOPICAL TID PRN 06/20/18 12/06/18 History sertraline [Zoloft] 50 mg PO DAILY 06/20/18 12/06/18 History potassium chloride [Klor-Con M20] 20 meq PO BID #60 tab 06/24/18 12/06/18 Rx metolazone 2.5 mg PO DAILY PRN 11/10/18 12/06/18 History torsemide 60 mg PO BID 11/10/18 12/06/18 History apixaban [Eliquis] 5 mg PO BID #60 tab 11/16/18 12/06/18 Rx daptomycin 500 mg IV DAILY #38 ea 11/16/18 12/06/18 Rx digoxin 0.125 mg PO DAILY@1600 #30 tab 11/16/18 12/06/18 Rx acetaminophen [Tylenol] 650 mg PO Q6H PRN 11/19/18 12/06/18 History docusate sodium 100 mg PO DAILY 11/19/18 12/06/18 History spironolactone 25 mg tablet 25 mg PO DAILY #90 tab 12/03/18 12/06/18 History albuterol sulfate 2.5 mg INHALATION QID PRN 12/06/18 12/06/18 History calcium carbonate-vitamin D3 1 tab PO DAILY 12/06/18 12/06/18 History [Calcium 500 + D] diltiazem HCl 30 mg PO TID 12/06/18 12/06/18 History metoprolol succinate [Toprol XL] 50 mg PO DAILY 12/06/18 12/06/18 History Patient History Medical History Urinary incontinence Situational anxiety 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 Hypokalemia Edema Diastolic dysfunction Diastolic congestive heart failure Depression Dementia, in, senility Cardiac pacemaker AF (paroxysmal atrial fibrillation) Apnea, sleep Hypertension Alzheimers disease Asthma Glaucoma High cholesterol Obesity Surgical History History of arthroscopic knee surgery History of eye surgery History of permanent cardiac pacemaker placement History of umbilical hernia repair Social History Preferred Language: Slovak Communication Ability: Impaired Industrial Safety And Health Manager Required: No Beliefs That Will Affect Care: None Current Living Situation: Personal Care Facility Current Living Situation Comment: [place] Feels Safe at Home: Yes Smoking Status: Never smoker Hx Alcohol Use: No Hx Substance Use: No Review of Systems Review of Systems: Unobtainable due to cognitive status Physical Exam Physical Exam: She is alert and oriented to person only. She answered questions and follow directions. HEENT: Sclerae are anicteric. Pupils are equal and reactive to light and accommodation. Extraocular movements were intact. Neuro: Cranial nerves intact Neck: Examination of the submandibular region did not reveal any significant lymphadenopathy. Carotids are palpable bilaterally and free of bruits on auscultation. There was no evidence of jugular venous distention. The thyroid was not enlarged. Lungs: Apices were clear. There are no rales wheezes or rhonchi. She has normal respiratory effort without use of accessory muscles. There is normal pulmonary excursion. Cardiac: The rhythm was regular. S1 and S2 were normal. There are no murmurs on examination. The PMI was not markedly displaced on palpation. Abdomen: The abdomen was soft and nontender. Extremities: Patient has bilateral radial pulses that are equal in intensity. There is no evidence cyanosis or clubbing. There was no evidence of significant peripheral edema bilaterally. Skin: There are no rashes noted on examination today. Results & Data Vital Signs (Past 12 Hours) Vital Signs Temp Pulse Pulse Resp BP Pulse Ox 12/09/18 08:00 81 12/09/18 07:05 36.5 C 87 24 119/69 92 12/09/18 06:24 83 24 95 12/09/18 04:54 36.3 C L 84 22 106/66 94 12/09/18 03:36 95 12/09/18 03:31 90 120/70 88 L 12/09/18 03:07 82 20 94 12/09/18 02:10 94 12/09/18 02:09 37.2 C 126 H 28 H 103/63 88 L 12/09/18 01:00 116 H 19 92 12/08/18 23:24 37.2 C 137 H 22 95/63 L 91 Laboratory Results Abnormal Lab Results 12/09/18 12/09/18 07:19 07:19 WBC 10.76 RBC 3.64 L Hgb 11.2 L Hct 34.0 L MCV 93.4 MCH 30.8 MCHC 32.9 RDW Std Deviation 49.8 H RDW Coeff of [place] 14.5 Plt Count 288 MPV 9.7 Immature Gran % (Auto) 0.6 Neut % (Auto) 73.6 Lymph % (Auto) 12.0 [place] % (Auto) 7.2 Eos % (Auto) 6.2 Baso % (Auto) 0.4 Immature Gran # (Auto) 0.06 H Neut # (Auto) 7.92 H Lymph # (Auto) 1.29 [place] # (Auto) 0.78 H Eos # (Auto) 0.67 H Baso # (Auto) 0.04 Sodium 134 L Potassium 3.7 D Chloride 97 L Carbon Dioxide 29 Anion Gap 8.0 BUN 11 Creatinine 1.00 Est Cr Clr Drug Dosing 49.6 Est GFR ( Amer) 59.1 Est GFR (Non-Af Amer) 51.0 BUN/Creatinine Ratio 10.5 Glucose 125 H Calcium 8.7 Total Bilirubin 0.6 AST 15 ALT 17 Alkaline Phosphatase 62 NT-Pro-B Natriuret Pep 2505 H Total Protein 6.9 Albumin 2.7 L Globulin 4.2 H Albumin/Globulin Ratio 0.6 L Diagnostic Findings Chest x-ray obtained at the time of admission suggested pulmonary edema versus interstitial pulmonary process. ECG Additional Comments: EKG obtained yesterday demonstrated atrial fibrillation and high ventricular rates. Telemetry monitoring this morning reveals an atrially paced rhythm. PG Care Time/CCT Total # of Minutes Spent Total Time Spent with Patient: Total time spent is greater than 50% in coordination of care (as documented) at patient's floor/unit and/or counseling patient: (1) Diastolic congestive heart failure Heart failure chronicity: acute on chronic Qualified Code(s): I50.33 - Acute on chronic diastolic (congestive) heart failure
[2018-12-09] MEDS: DAPTOmycin 475 MG in SYRINGE 0 ML IV SCH (10:13)
--- NOTE | 2018-12-09 10:57 | Hospitalist Progress Note ---
Date of Service December 09, 2018 Assessment & Plan (1) Pneumonia: Admitted with worsening respiratory distress and confusion after vomiting episode. Has infiltrates on CXR consistent with at least aspiration pneumonitis. No fevers, but did have a mild leukocytosis on admission. Improved with IV Zosyn and continued on IV Dapto --> dc Flagyl as already has aspiration coverage with Zosyn -Continue daptomycin IV and continued with Zosyn IV. -continue scheduled and prn nebs -Follow-up blood cultures-NGTD -respiratory status worse today likely secondary to acute CHF and asthma exacerbation (2) AF (paroxysmal atrial fibrillation): Rapid paroxysmal Atrial fibrillation She is known to go in and out of Afib quite frequently. Did have lower BPs yesterday with it and was transferred to PCU on amiodarone gtt Converted again to paced rhythm on 12/09 AM Her AV sanya blocking agents and digoxin had all been on hold -Appreciate Cardiology consultation Continue apixaban -restart digoxin -dc amiodarone gtt -restarted and increased dose of Toprol XL to 100mg daily (had been on 200mg daily at time of discharge 3 weeks ago) -continue to hold diltiazem 120mg daily from home until BPs improve -continue tele monitoring (3) Hypertension: BPs on lower side, improved today now that converted out of Afib -restart Toprol and increase to 100mg -restarted home diuretics aldactone 25 qday and torsemide 60mg po bid (4) Urinary incontinence: [place] catheter placed while critically ill -will continue for today given respiratory distress to minimize having to be turned frequently for changing of pads -consider dc of [place] tomorrow (5) Diastolic congestive heart failure: Acute on chronic diastolic CHF proBNP up significantly today to 2500, CXR appeared worse on admission than previous with volume overload Resp distress and wheezing worse today, weight back up from previous -was given IV albumin x 1 this admission -restart home diuretics torsemide 60mg po bid, aldactone 25mg qday -follow daily weights, I/Os (6) Asthma: With wheezing today-no need for steroids as will contribute to fluid retention -continue inhaled steroids -give extra albuterol neb this AM, continue scheduled nebs (7) Apnea, sleep: was not ordered CPAP--> daughter to bring in CPAP from home (8) Dementia, in, senility: Dementia/depression-at baseline Continue donepezil, Namenda and sertraline (9) Depression: See above (10) Bacteremia due to Gram-positive bacteria: Continue on IV Dapto for previous Enterococcus bacteremia-stop date tentatively 12/24 ID following as outpt -check CMP, CBC, ESR, CRP, CPK once weekly while on Dapto--> check all labs tomorrow (11) DVT prophylaxis: Amberly Dispo-remain on PCU Subjective Pt not able to tell me much due to dementia. Appears SOB. Is wheezing more than yesterday as per daughter. Tele with Rapid Afib which converted to paced rhythm at 0230 this AM. Discussed the case with Cardiology Review of Systems Review of Systems: All systems reviewed & are unremarkable except as noted in HPI & below Physical Exam Constitutional: + acute distress (mild resp distress) and + obese Eyes: + anicteric sclerae ENMT: Ears: no external ear abnormality Mouth: + oral mucosal abnormality (tongue appears dry) Neck: trachea midline, no thyromegaly Respiratory: + labored breathing, + cough, + tachypneic and + audible wheezes Auscultation: + crackles (bibasilar) and + wheezes (diffusely) Cardiovascular: RRR, no murmur, no edema Gastrointestinal (Abdomen): normal bowel sounds, soft, nontender, no hepatosplenomegaly Musculoskeletal: Extremities: extremities normal to inspection; no cyanosis and no clubbing Skin: no rashes, warm and dry Neurologic: moves all extremities and awake; no focal motor deficits Psychiatric: Orientation: alert, oriented to person and cooperative; + not oriented to place and + not oriented to time Genitourinary: [place] in place draining clear yellow urine Results & Data Vital Signs (Past 12 Hours) Vital Signs Temp Pulse Pulse Resp BP Pulse Ox 12/09/18 08:00 81 12/09/18 07:05 36.5 C 87 24 119/69 92 12/09/18 06:24 83 24 95 12/09/18 04:54 36.3 C L 84 22 106/66 94 12/09/18 03:36 95 12/09/18 03:31 90 120/70 88 L 12/09/18 03:07 82 20 94 12/09/18 02:10 94 12/09/18 02:09 37.2 C 126 H 28 H 103/63 88 L 08/26/19 01:00 116 H 19 92 12/08/18 23:24 37.2 C 137 H 22 95/63 L 91 Laboratory Results 12/09/18 12/09/18 Range/Units 07:19 07:19 WBC 10.76 (4.8-10.8) K/uL RBC 3.64 L (4.2-5.4) M/uL Hgb 11.2 L (12.0-16.0) g/dL Hct 34.0 L (37-47) % MCV 93.4 (80-100) fL MCH 30.8 (25-34) pg MCHC 32.9 (32-36) g/dL RDW Std Deviation 49.8 H (36.4-46.3) fL RDW Coeff of [place] 14.5 (11.5-14.5) % Plt Count 288 (130-400) K/uL MPV 9.7 (7.4-10.4) fL Immature Gran % (Auto) 0.6 % Neut % (Auto) 73.6 % Lymph % (Auto) 12.0 % [place] % (Auto) 7.2 % Eos % (Auto) 6.2 % Baso % (Auto) 0.4 % Immature Gran # (Auto) 0.06 H (0.00-0.02) K/uL Neut # (Auto) 7.92 H (1.4-6.5) K/uL Lymph # (Auto) 1.29 (1.2-3.4) K/uL [place] # (Auto) 0.78 H (0.11-0.59) K/uL Eos # (Auto) 0.67 H (0-0.5) K/uL Baso # (Auto) 0.04 (0-0.2) K/uL Sodium 134 L (136-145) mmol/L Potassium 3.7 D (3.5-5.1) mmol/L Chloride 97 L (98-107) mmol/L Carbon Dioxide 29 (21-32) mmol/L Anion Gap 8.0 (3-11) BUN 11 (7-18) mg/dl Creatinine 1.00 (0.6-1.2) mg/dl Est Cr Clr Drug Dosing 49.6 ml/min Est GFR ( Amer) 59.1 Est GFR (Non-Af Amer) 51.0 BUN/Creatinine Ratio 10.5 (10-20) Glucose 125 H (70-99) mg/dl Calcium 8.7 (8.5-10.1) mg/dl Total Bilirubin 0.6 (0.2-1) mg/dl AST 15 (15-37) U/L ALT 17 (12-78) U/L Alkaline Phosphatase 62 (45-117) U/L NT-Pro-B Natriuret Pep 2505 H (0-1800) pg/ml Total Protein 6.9 (6.4-8.2) gm/dl Albumin 2.7 L (3.4-5.0) gm/dl Globulin 4.2 H (2.5-4.0) gm/dl Albumin/Globulin Ratio 0.6 L (0.9-2) Diagnostic Findings CXR image personally reviewed by me and agree with the following report: XR chest 1V portable CLINICAL HISTORY: 88 years-old Female presenting with hypoxia, SOB, f/u PNA. TECHNIQUE: Portable upright AP view of the chest was obtained. COMPARISON: 12/06/2018. FINDINGS: Left subclavian pacer with leads in the right atrium and right ventricular apex. Atherosclerosis and prominence of the mildly tortuous thoracic aorta. Cardiac silhouette moderately enlarged as on prior. Pulmonary vascular prominence may have slightly decreased. Slightly improved aeration of the lung bases. Persistent diffuse patchy opacities right greater than left. Bronchial wall cuffing and prominent interstitial lung markings remain evident. Trace right pleural effusion may be present. No large pneumothorax. Deformity of the left humerus may indicate prior trauma. Upper abdomen normal. IMPRESSION: 1. Cardiomegaly with slight interval decrease in volume overload though a significant degree of congestive change remains. 2. Patchy infiltrates right greater than left. While this could represent edema, multifocal pneumonia is favored. Continued follow-up recommended. 3. Suspected trace right pleural effusion. PG Care Time/CCT Total # of Minutes Spent Total Time Spent with Patient: Total time spent is greater than 50% in coordination of care (as documented) at patient's floor/unit and/or counseling patient: (1) Diastolic congestive heart failure Heart failure chronicity: acute on chronic Qualified Code(s): I50.33 - Acute on chronic diastolic (congestive) heart failure (2) Hypertension Hypertension type: essential hypertension Qualified Code(s): I10 - Essential (primary) hypertension (3) Pneumonia Laterality: bilateral Lung location: unspecified part of lung Pneumonia type: due to unspecified organism Qualified Code(s): J18.9 - Pneumonia, unspecified organism
[2018-12-09] MEDS: BUDESONIDE 0.5 MG/2 ML VIAL (PULMICORT) INH SCH ×2 (11:02→19:07)
[2018-12-09] MEDS: METOPROLOL SUCC 50MG EXT REL TAB PO SCH (11:29)
--- NOTE | 2018-12-09 12:52 | XRay Report ---
XR chest 1V portable CLINICAL HISTORY: 88 years-old Female presenting with hypoxia, SOB, f/u PNA. TECHNIQUE: Portable upright AP view of the chest was obtained. COMPARISON: 12/06/2018. FINDINGS: Left subclavian pacer with leads in the right atrium and right ventricular apex. Atherosclerosis and prominence of the mildly tortuous thoracic aorta. Cardiac silhouette moderately enlarged as on prior. Pulmonary vascular prominence may have slightly decreased. Slightly improved aeration of the lung ba ses. Persistent diffuse patchy opacities right greater than left. Bronchial wall cuffing and prominen t interstitial lung markings remain evident. Trace right pleural effusion may be present. No large pn eumothorax. Deformity of the left humerus may indicate prior trauma. Upper abdomen normal. IMPRESSION: 1. Cardiomegaly with slight interval decrease in volume overload though a significant degree of franco estive change remains. 2. Patchy infiltrates right greater than left. While this could represent edema, multifocal pneumoni a is favored. Continued follow-up recommended. 3. Suspected trace right pleural effusion. Electronically signed by: Eugene Peralta M.D. 12/09/2018 12:50 PM
[2018-12-09] MEDS: TORSEMIDE 20 MG TAB PO SCH ×2 (13:39→19:38)
[2018-12-09] MEDS: DIGOXIN 0.125 MG TAB PO SCH (15:46)
[2018-12-09] MEDS: ACETAMINOPHEN 325 MG TAB PO PRN (23:38)
[2018-12-10] MEDS: LEVALBUTEROL HCL 0.63 MG/3 ML NEB NEB SCH ×4 (01:15→19:12)
[2018-12-10] MEDS: IPRATROPIUM BROMIDE NEB SOLN 0.02% 2.5 ML VIAL INH SCH ×4 (01:15→19:12)
[2018-12-10] MEDS ORDERED: METOPROLOL TARTRATE 1 MG/ML VIAL IV STA (03:48)
[2018-12-10] MEDS ORDERED: METOPROLOL TARTRATE 1 MG/ML VIAL IV ONE (03:49)
[2018-12-10] MEDS: ALBUMIN 25% 50 ML IV SCH ×2 (04:21→05:12)
[2018-12-10 04:30] LABS: Basophils # (auto) 0.03 K/uL (0-0.2); Basophils % (auto) 0.3 %; Eosinophils # (auto) 1.01 K/uL (0-0.5); Eosinophils % (auto) 8.5 %; Hematocrit (blood only) 35.7 % (37-47); Hemoglobin 11.8 g/dL (12.0-16.0); Immature Granulocytes # (auto) 0.08 K/uL (0.00-0.02); Immature Granulocytes % (auto) 0.7 %; Lymphocytes % (auto) 10.1 %; Mean Corpuscular Hgb Conc 33.1 g/dL (32-36); Mean Corpuscular Volume 93.5 fL (80-100); Mean Platelet Volume 9.7 fL (7.4-10.4); Monocytes # (auto) 0.66 K/uL (0.11-0.59); Monocytes % (auto) 5.6 %; Neutrophils # (auto) 8.87 K/uL (1.4-6.5); Neutrophils % (auto) 74.8 %; Platelet Count 273 K/uL (130-400); RDW Coefficient of Variation 14.3 % (11.5-14.5); RDW Standard Deviation 49.2 fL (36.4-46.3); Red Blood Count 3.82 M/uL (4.2-5.4); White Blood Count 11.85 K/uL (4.8-10.8)
[2018-12-10 04:58] LABS: Albumin Level 2.6 gm/dl (3.4-5.0); BUN Creatinine Ratio 9.1 (10-20); Calcium 8.5 mg/dl (8.5-10.1); Creatinine Clr Calc Pharmacy 44.4 ml/min; Est GFR (African American) 52.1; Est GFR (Non-African American) 44.9; Magnesium 1.8 mg/dl (1.8-2.4); Potassium 2.8 mmol/L (3.5-5.1)
[2018-12-10 05:02] LABS: Albumin Globulin Ratio 0.6 (0.9-2); Bilirubin,Total 0.8 mg/dl (0.2-1); Globulin 4.6 gm/dl (2.5-4.0); Total Protein 7.2 gm/dl (6.4-8.2)
[2018-12-10] MEDS ORDERED: POTASSIUM CHLORIDE 20 MEQ TABCR PO STA (05:23)
[2018-12-10] MEDS ORDERED: MAGNESIUM SULFATE / D5W 1 GM/100 ML BAG IV ONE ×2 (05:30→09:30)
[2018-12-10] MEDS: POTASSIUM CHLORIDE / WTR 10 MEQ/100 ML PLCT IV SCH ×4 (05:43→09:03)
[2018-12-10] MEDS: PIPERACILLIN/TAZOBACTAM 4.5 GM in DEXTROSE 5% 100 ML IV SCH ×3 (05:49→21:38)
[2018-12-10] MEDS: BUDESONIDE 0.5 MG/2 ML VIAL (PULMICORT) INH SCH ×2 (06:53→19:12)
[2018-12-10] MEDS: TORSEMIDE 20 MG TAB PO SCH (08:03)
[2018-12-10] MEDS: METOPROLOL SUCC 50MG EXT REL TAB PO SCH (08:03)
[2018-12-10] MEDS: CALCIUM 600MG + VIT D 400 IU TAB PO SCH (08:04)
[2018-12-10] MEDS: MEMANTINE HCL 5 MG TAB PO SCH (08:04)
[2018-12-10] MEDS: SPIRONOLACTONE 25 MG TAB PO SCH (08:04)
[2018-12-10] MEDS: SERTRALINE HCL 50 MG TABLET PO SCH (08:04)
[2018-12-10] MEDS: APIXABAN 5 MG TABLET PO SCH (08:04)
[2018-12-10] MEDS: POTASSIUM CHLORIDE 20 MEQ TABCR PO SCH ×2 (08:05→20:46)
[2018-12-10] MEDS: DOCUSATE SODIUM 100 MG CAP PO SCH (08:30)
[2018-12-10] MEDS ORDERED: POTASSIUM CHLORIDE 20 MEQ TABCR PO ONE (09:30)
[2018-12-10] MEDS ORDERED: POTASSIUM CHLORIDE / WTR 10 MEQ/100 ML PLCT IV SCH (09:30)
--- NOTE | 2018-12-10 09:32 | Cardiology Progress Note ---
Date of Service December 10, 2018 Assessment & Plan (1) Diastolic congestive heart failure: According to her records, she affected a very vigorous diuresis yesterday. I think we need to be cautious regarding continued use of her diuretics given her response yesterday. Perhaps reducing her diuretic to 60 milligrams once daily would be reasonable. (2) Cardiac pacemaker: She is normally functioning dual-chamber pacemaker which was interrogated at her last admission. She has active atrial therapies for reduction in AFib frequency. However, she is known to cycle quite frequently in and out of atrial fibrillation. There was some concern regarding a possible device infection given her bacteremia at that her last admission. However, her current blood cultures are negative and there is no evidence of pocket infection on exam. (3) AF (paroxysmal atrial fibrillation): She continues to cycle and out of atrial fibrillation. Her ventricular rates are high. She is not symptomatic. Metoprolol was increased yesterday. Digoxin was resume. We will start was some diltiazem today as well to achieve better rate control. We will need to monitor her blood pressures, otherwise no concerns regarding bradycardia given the presence of her pacemaker. She will continue on anticoagulation indefinitely. Subjective This morning the patient had no specific complaints. She denied pain. She denies breathing trouble. She cannot recall she eating her breakfast. She has some difficulty remembering her daughter's name. She was not oriented to location. Review of Systems Review of Systems: Unobtainable due to cognitive status Physical Exam Physical Exam: She is alert and oriented to person only. She answer some questions but was somnolent. HEENT: Sclerae are anicteric. Pupils are equal and reactive to light and accommodation. Extraocular movements were intact. Neuro: Cranial nerves intact Lungs: Coarse upper airway sounds. Coughing. Cardiac: The rhythm was irregular. S1 and S2 were normal. There are no murmurs on examination. The PMI was not markedly displaced on palpation. Abdomen: Obese Extremities: Patient has bilateral radial pulses that are equal in intensity. There is no evidence cyanosis or clubbing. Results & Data Vital Signs (Past 12 Hours) Vital Signs Temp Pulse Pulse Pulse Resp BP Pulse Ox 12/10/18 07:48 36.9 C 129 H 19 114/77 91 12/10/18 06:55 120 H 20 90 12/10/18 03:58 37.1 C 115 H 20 101/64 92 12/10/18 03:52 132 H 12/10/18 01:17 75 18 94 12/09/18 23:56 38.1 C H 83 20 91/48 L 93 ECG Additional Comments: I reviewed her telemetry demonstrated recurrent atrial fibrillation beginning slightly after midnight. PG Care Time/CCT Total # of Minutes Spent Total Time Spent with Patient: Total time spent is greater than 50% in coordination of care (as documented) at patient's floor/unit and/or counseling patient: (1) Diastolic congestive heart failure Heart failure chronicity: acute on chronic Qualified Code(s): I50.33 - Acute on chronic diastolic (congestive) heart failure
[2018-12-10] MEDS: DAPTOmycin 475 MG in SYRINGE 0 ML IV SCH (10:09)
--- NOTE | 2018-12-10 10:30 | Infectious Disease Consult ---
Date of Consultation December 10, 2018 Assessment & Plan (1) Aspiration pneumonia: 88-year-old female under treatment for enterococcal bacteremia now with what appears to be acute aspiration pneumonitis after episode of vomiting. Clinically appears to be improving, would recommend continuing Zosyn another 2448 hrs., then transition to oral Augmentin if continues to improve. Would complete 6-week course of daptomycin, as there is concern for possibility of infected pacemaker/wire. Will follow. (2) Enterococcal bacteremia: History of Present Illness Reason for Consultation: Fever cough ongoing treatment for bacteremia Attending Physician: Madonna Sloan MD History of Present Illness 88-year-old female known to the infectious disease service, with history of diastolic heart failure, atrial fibrillation, permanent pacemaker, who was admitted at the end of October with enterococcal bacteremia. Was undergoing treatment with IV daptomycin for planned 6-week course of therapy, but on December 07 had episode of vomiting then became acutely hypoxic and was admitted to the hospital. Chest x-ray shows patchy infiltrate consistent with possible aspiration pneumonia. Patient has been treated with IV Zosyn, and daptomycin has been continued. Blood cultures are negative. Patient appears comfortable and offers no specific complaints at present. Not fully oriented at present. Allergies Allergy/AdvReac Type Severity Reaction Status Date / Time No Known Allergies Allergy Verified 12/06/18 23:08 Home Medications Home Medications Medication Instructions Recorded Confirmed Type [place] 1 puff INHALATION DAILY 06/20/18 12/06/18 History budesonide [Pulmicort] 1 vial INHALATION BID 06/20/18 12/06/18 History diphenhydramine HCl [Banophen] 25 mg PO Q6 PRN 06/20/18 12/06/18 History donepezil [Aricept] 10 mg PO HS 06/20/18 12/06/18 History ipratropium-albuterol 3 ml INHALATION Q6 PRN 06/20/18 12/06/18 History loperamide 2 mg PO Q4 PRN 06/20/18 12/06/18 History memantine [Namenda] 5 mg PO DAILY 06/20/18 12/06/18 History nystatin 1 applic TOPICAL TID PRN 06/20/18 12/06/18 History sertraline [Zoloft] 50 mg PO DAILY 06/20/18 12/06/18 History potassium chloride [Klor-Con M20] 20 meq PO BID #60 tab 06/24/18 12/06/18 Rx metolazone 2.5 mg PO DAILY PRN 11/10/18 12/06/18 History torsemide 60 mg PO BID 11/10/18 12/06/18 History apixaban [Eliquis] 5 mg PO BID #60 tab 11/16/18 12/06/18 Rx daptomycin 500 mg IV DAILY #38 ea 11/16/18 12/06/18 Rx digoxin 0.125 mg PO DAILY@1600 #30 tab 11/16/18 12/06/18 Rx acetaminophen [Tylenol] 650 mg PO Q6H PRN 11/19/18 12/06/18 History docusate sodium 100 mg PO DAILY 11/19/18 12/06/18 History spironolactone 25 mg tablet 25 mg PO DAILY #90 tab 12/03/18 12/06/18 History albuterol sulfate 2.5 mg INHALATION QID PRN 12/06/18 12/06/18 History calcium carbonate-vitamin D3 1 tab PO DAILY 12/06/18 12/06/18 History [Calcium 500 + D] diltiazem HCl 30 mg PO TID 12/06/18 12/06/18 History metoprolol succinate [Toprol XL] 50 mg PO DAILY 12/06/18 12/06/18 History Patient History Medical History Urinary incontinence Situational anxiety 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 Hypokalemia Edema Diastolic dysfunction Diastolic congestive heart failure Depression Dementia, in, senility Cardiac pacemaker AF (paroxysmal atrial fibrillation) Apnea, sleep Hypertension Alzheimers disease Asthma Glaucoma High cholesterol Obesity Surgical History History of arthroscopic knee surgery History of eye surgery History of permanent cardiac pacemaker placement History of umbilical hernia repair Social History Preferred Language: Sammarinese Communication Ability: Impaired Seismograph Recorder Required: No Beliefs That Will Affect Care: None Current Living Situation: Personal Care Facility [facility] [place] Feels Safe at Home: Yes Smoking Status: Never smoker Hx Alcohol Use: No Hx Substance Use: No Review of Systems Review of Systems: Unobtainable due to cognitive status Physical Exam Constitutional: WD/WN, vitals as above no acute distress Eyes: PERRL, conjunctivae normal, anicteric sclerae ENMT: external ear and nose normal, oropharynx normal Neck: trachea midline, no thyromegaly neck nontender Respiratory: normal respiratory effort; no respiratory distress Auscultation: + rales Cardiovascular: Rate/Rhythm: + irregularly irregular Heart Sounds: no gallop, no murmur and no cardiac rub Gastrointestinal (Abdomen): normal bowel sounds, soft, nontender, no hepatosplenomegaly Percussion/Palpation: no abdominal mass Musculoskeletal: no cyanosis or clubbing, extremities motor strength 5/5 Head/Neck/Chest: normocephalic, head atraumatic and neck supple Skin: no rashes, warm and dry Neurologic: moves all extremities; no focal motor deficits and no meningeal signs Speech / Cognition: + abnormal cognition Psychiatric: Orientation: alert and oriented to person Lymphatic: no cervical or axillary lymphadenopathy no inguinal lymphadenopathy Results & Data Vital Signs (Past 12 Hours) Vital Signs Temp Pulse Pulse Pulse Resp BP Pulse Ox 12/10/18 07:48 36.9 C 129 H 19 114/77 91 12/10/18 06:55 120 H 20 90 12/10/18 03:58 37.1 C 115 H 20 101/64 92 12/10/18 03:52 132 H 12/10/18 01:17 75 18 94 12/09/18 23:56 38.1 C H 83 20 91/48 L 93 Laboratory Results Short CBC 12/10/18 Range/Units 04:23 WBC 11.85 H (4.8-10.8) K/uL Hgb 11.8 L (12.0-16.0) g/dL Hct 35.7 L (37-47) % Plt Count 273 (130-400) K/uL BMP 12/10/18 04:23 Sodium 135 L Potassium 2.8 L D Chloride 95 L Carbon Dioxide 33 H BUN 10 Creatinine 1.11 Glucose 109 H Calcium 8.5 Cardiac Enzymes 12/10/18 Range/Units 04:23 Total Creatine Kinase 99 (26-192) U/L Liver Function 12/10/18 Range/Units 04:23 Total Bilirubin 0.8 (0.2-1) mg/dl AST 18 (15-37) U/L ALT 17 (12-78) U/L Alkaline Phosphatase 66 (45-117) U/L Albumin 2.6 L (3.4-5.0) gm/dl Diagnostic Findings Microbiology 12/06/18 21:07 Blood Aerobic Blood Culture - Preliminary No growth in Aerobic bottle after 48 hours. 12/06/18 21:07 Blood Anaerobic Blood Culture - Final 12/06/18 21:20 Blood Aerobic Blood Culture - Preliminary No growth in Aerobic bottle after 48 hours. 12/06/18 21:20 Blood Anaerobic Blood Culture - Final XR chest 1V portable CLINICAL HISTORY: 88 years-old Female presenting with hypoxia, SOB, f/u PNA. TECHNIQUE: Portable upright AP view of the chest was obtained. COMPARISON: 12/06/2018. FINDINGS: Left subclavian pacer with leads in the right atrium and right ventricular apex. Atherosclerosis and prominence of the mildly tortuous thoracic aorta. Cardiac silhouette moderately enlarged as on prior. Pulmonary vascular prominence may have slightly decreased. Slightly improved aeration of the lung bases. Persistent diffuse patchy opacities right greater than left. Bronchial wall cuffing and prominent interstitial lung markings remain evident. Trace right pleural effusion may be present. No large pneumothorax. Deformity of the left humerus may indicate prior trauma. Upper abdomen normal. IMPRESSION: 1. Cardiomegaly with slight interval decrease in volume overload though a significant degree of congestive change remains. 2. Patchy infiltrates right greater than left. While this could represent edema, multifocal pneumonia is favored. Continued follow-up recommended. 3. Suspected trace right pleural effusion. Electronically signed by: Eugene Peralta M.D. 12/09/2018 12:50 PM PG Care Time/CCT Total # of Minutes Spent Total Time Spent with Patient: Total time spent is greater than 50% in coordination of care (as documented) at patient's floor/unit and/or counseling patient:
[2018-12-10] MEDS: dilTIAZem HCL 30 MG TAB PO SCH ×3 (11:04→20:46)
[2018-12-10] MEDS: methylPREDNISolone 60 MG in SYRINGE 0 ML IV SCH ×2 (11:59→20:45)
--- NOTE | 2018-12-10 12:30 | Hospitalist Progress Note ---
Date of Service December 10, 2018 Assessment & Plan (1) Pneumonia: Admitted with worsening respiratory distress and confusion after vomiting episode. Has infiltrates on CXR consistent with at least aspiration pneumonitis. No fevers until evening of 12/09, with mild leukocytosis on admission, slightly worse today at 11k. Was Improved with IV Zosyn and continued on IV Dapto fo rprevious bacteremia, however today seems worse, more productive cough, spiked fever ESR> 90, CRP 20 -Consult ID appreciated-recomends to remain on Zosyn and eventually convert to Augmentin -continue scheduled and prn nebs -Follow-up blood cultures-NGTD -pulm toilet, is OOB to chair today which will help (2) AF (paroxysmal atrial fibrillation): Rapid paroxysmal Atrial fibrillation She is known to go in and out of Afib quite frequently. Did have lower BPs with it and was transferred to PCU on amiodarone gtt on 12/08 which was then dcd by Cardio on 12/09 Converted again to paced rhythm on 12/09 AM and now back in and out of Afib since then -Appreciate Cardiology consultation -hold apixaban for hematuria -continue digoxin -restart po dilt 30mg tid as per Cardio -restarted and increased dose of Toprol XL to 100mg daily (had been on 200mg daily at time of discharge 3 weeks ago) -continue tele monitoring (3) Hypertension: BPs were on lower side, improved today -restart Toprol and increase to 100mg -restarted home diuretics aldactone 25 qday and now will decrease torsemide 60mg po just ONCE daily (4) Urinary incontinence: [place] catheter placed while critically ill -now with hematuria, could be secondary to [place] trauma while on Eliquis -could be infectious especially given fever -check UA with reflex to cx -keep [place] for now (5) Diastolic congestive heart failure: Acute on chronic diastolic CHF-now resolved proBNP was up significantly to 2500, now improved -CXR appeared worse on admission than previous with volume overload Resp distress and wheezing improved today, weight is down and diuresed 4L in 1 day -was given IV albumin x 1 this admission -continue diuretics but decrease to torsemide 60mg po qAM, aldactone 25mg qday -follow daily weights, I/Os (6) Asthma: With wheezing now improved but with continued resp distress -start IV Solu Medrol -continue inhaled steroids -continue scheduled and prn nebs (7) Apnea, sleep: was not ordered CPAP--> daughter brought in CPAP from home (8) Dementia, in, senility: Dementia/depression-at baseline Continue donepezil, Namenda and sertraline (9) Depression: See above (10) Bacteremia due to Gram-positive bacteria: Continue on IV Dapto for previous Enterococcus bacteremia-stop date tentatively 12/24 ID following as outpt -check CMP, CBC, ESR, CRP, CPK once weekly while on Dapto--> ESR>90, CRP 20, CPK 99 -needs another US-guided PIV (11) Hematuria: plan as above (12) DVT prophylaxis: Eliquis-on hold for hematuria Dispo-remain on PCU Subjective Pt spiked a fever overnight. Is coughing a lot today and I watched her bring up sputum. Otherwise not able to tell me anything. Was back in rapid A-fib since 0200 this AM. Review of Systems Review of Systems: Unobtainable due to cognitive status Physical Exam Constitutional: + obese; no acute distress Eyes: + anicteric sclerae ENMT: Ears: no external ear abnormality Neck: trachea midline, no thyromegaly Respiratory: + cough (prlonged coughing spell); not tachypneic and no audible wheezes Auscultation: + rhonchi (bilateral); no wheezes Cardiovascular: Rate/Rhythm: + tachycardic and + irregularly irregular Heart Sounds: no murmur Extremities: no edema Gastrointestinal (Abdomen): normal bowel sounds, soft, nontender, no hepatosplenomegaly Musculoskeletal: Extremities: extremities normal to inspection; no cyanosis and no clubbing Skin: no rashes, warm and dry Neurologic: moves all extremities and awake; no focal motor deficits Psychiatric: Orientation: alert, oriented to person and cooperative; + not oriented to place and + not oriented to time Genitourinary: [place] with berg red urine Results & Data Vital Signs (Past 12 Hours) Vital Signs Temp Pulse Pulse Pulse Resp BP Pulse Ox 12/10/18 10:55 37.2 C 92 H 20 107/70 92 12/10/18 07:48 36.9 C 129 H 19 114/77 91 12/10/18 06:55 120 H 20 90 12/10/18 03:58 37.1 C 115 H 20 101/64 92 12/10/18 03:52 132 H 12/10/18 01:17 75 18 94 Laboratory Results 12/10/18 12/10/18 12/10/18 Range/Units 04:23 04:23 04:23 WBC 11.85 H (4.8-10.8) K/uL RBC 3.82 L (4.2-5.4) M/uL Hgb 11.8 L (12.0-16.0) g/dL Hct 35.7 L (37-47) % MCV 93.5 (80-100) fL MCH 30.9 (25-34) pg MCHC 33.1 (32-36) g/dL RDW Std Deviation 49.2 H (36.4-46.3) fL RDW Coeff of [place] 14.3 (11.5-14.5) % Plt Count 273 (130-400) K/uL MPV 9.7 (7.4-10.4) fL Immature Gran % (Auto) 0.7 % Neut % (Auto) 74.8 % Lymph % (Auto) 10.1 % [place] % (Auto) 5.6 % Eos % (Auto) 8.5 % Baso % (Auto) 0.3 % Immature Gran # (Auto) 0.08 H (0.00-0.02) K/uL Neut # (Auto) 8.87 H (1.4-6.5) K/uL Lymph # (Auto) 1.20 (1.2-3.4) K/uL [place] # (Auto) 0.66 H (0.11-0.59) K/uL Eos # (Auto) 1.01 H (0-0.5) K/uL Baso # (Auto) 0.03 (0-0.2) K/uL ESR > 90 H (0-21) mm/hr Sodium 135 L (136-145) mmol/L Potassium 2.8 L D (3.5-5.1) mmol/L Chloride 95 L (98-107) mmol/L Carbon Dioxide 33 H (21-32) mmol/L Anion Gap 7.0 (3-11) BUN 10 (7-18) mg/dl Creatinine 1.11 (0.6-1.2) mg/dl Est Cr Clr Drug Dosing 44.4 ml/min Est GFR ( Amer) 52.1 Est GFR (Non-Af Amer) 44.9 BUN/Creatinine Ratio 9.1 L (10-20) Glucose 109 H (70-99) mg/dl Calcium 8.5 (8.5-10.1) mg/dl Magnesium 1.8 (1.8-2.4) mg/dl Total Bilirubin 0.8 (0.2-1) mg/dl AST 18 (15-37) U/L ALT 17 (12-78) U/L Alkaline Phosphatase 66 (45-117) U/L Total Creatine Kinase 99 (26-192) U/L C-Reactive Protein 20.00 H (0-0.29) mg/dl NT-Pro-B Natriuret Pep 1376 (0-1800) pg/ml Total Protein 7.2 (6.4-8.2) gm/dl Albumin 2.6 L (3.4-5.0) gm/dl Globulin 4.6 H (2.5-4.0) gm/dl Albumin/Globulin Ratio 0.6 L (0.9-2) PG Care Time/CCT Total # of Minutes Spent Total Time Spent with Patient: Total time spent is greater than 50% in coordination of care (as documented) at patient's floor/unit and/or counseling patient: (1) Pneumonia Laterality: bilateral Lung location: unspecified part of lung Pneumonia type: due to unspecified organism Qualified Code(s): J18.9 - Pneumonia, unspecified organism (2) Hypertension Hypertension type: essential hypertension Qualified Code(s): I10 - Essential (primary) hypertension (3) Diastolic congestive heart failure Heart failure chronicity: acute on chronic Qualified Code(s): I50.33 - Acute on chronic diastolic (congestive) heart failure
[2018-12-10 13:27] LABS: Appearance Urine Cloudy (Clear); Bacteria Urine Automated Negative (Negative); Bilirubin Urine Negative (Negative); Blood Urine 3+ (Negative); Color Urine Red; Glucose Urine UA Negative (Negative); Ketones Urine Negative (Negative); Leukocyte Esterase Urine 2+ (Negative); Nitrite Urine Negative (Negative); Protein Urine 1+ (Negative); RBC Urine Automated >30 /hpf (0-4); Specific Gravity Urine 1.017 (1.000-1.030); Urobilinogen Urine Negative (Negative)
[2018-12-10] MEDS: DIGOXIN 0.125 MG TAB PO SCH (16:33)
[2018-12-11] MEDS: IPRATROPIUM BROMIDE NEB SOLN 0.02% 2.5 ML VIAL INH SCH ×4 (01:18→19:15)
[2018-12-11] MEDS: LEVALBUTEROL HCL 0.63 MG/3 ML NEB NEB SCH ×4 (01:18→19:15)
[2018-12-11] MEDS: methylPREDNISolone 60 MG in SYRINGE 0 ML IV SCH ×3 (04:39→19:29)
[2018-12-11] MEDS: PIPERACILLIN/TAZOBACTAM 4.5 GM in DEXTROSE 5% 100 ML IV SCH ×3 (05:39→21:23)
[2018-12-11] MEDS: BUDESONIDE 0.5 MG/2 ML VIAL (PULMICORT) INH SCH ×2 (07:02→19:15)
[2018-12-11 08:08] LABS: Basophils # (auto) 0.01 K/uL (0-0.2); Basophils % (auto) 0.1 %; Hematocrit (blood only) 37.7 % (37-47); Hemoglobin 12.5 g/dL (12.0-16.0); Immature Granulocytes # (auto) 0.04 K/uL (0.00-0.02); Immature Granulocytes % (auto) 0.4 %; Lymphocytes # (auto) 1.26 K/uL (1.2-3.4); Lymphocytes % (auto) 12.3 %; Mean Corpuscular Hgb Conc 33.2 g/dL (32-36); Mean Corpuscular Volume 92.9 fL (80-100); Mean Platelet Volume 9.9 fL (7.4-10.4); Monocytes # (auto) 0.22 K/uL (0.11-0.59); Monocytes % (auto) 2.2 %; Platelet Count 330 K/uL (130-400); RDW Coefficient of Variation 14.1 % (11.5-14.5); RDW Standard Deviation 47.9 fL (36.4-46.3); Red Blood Count 4.06 M/uL (4.2-5.4); White Blood Count 10.23 K/uL (4.8-10.8)
[2018-12-11] MEDS: dilTIAZem HCL 30 MG TAB PO SCH ×3 (08:38→20:44)
[2018-12-11] MEDS: POTASSIUM CHLORIDE 20 MEQ TABCR PO SCH ×2 (08:38→20:41)
[2018-12-11] MEDS: CALCIUM 600MG + VIT D 400 IU TAB PO SCH (08:40)
[2018-12-11] MEDS: METOPROLOL SUCC 50MG EXT REL TAB PO SCH (08:40)
[2018-12-11] MEDS: SPIRONOLACTONE 25 MG TAB PO SCH (08:40)
[2018-12-11] MEDS: SERTRALINE HCL 50 MG TABLET PO SCH (08:41)
[2018-12-11] MEDS: TORSEMIDE 10 MG TAB PO SCH (08:41)
[2018-12-11] MEDS: MEMANTINE HCL 5 MG TAB PO SCH (08:41)
[2018-12-11 08:53] LABS: BUN Creatinine Ratio 18.1 (10-20); Calcium 9.4 mg/dl (8.5-10.1); Creatinine Clr Calc Pharmacy 41.7 ml/min; Est GFR (African American) 47.9; Est GFR (Non-African American) 41.3; Magnesium 2.3 mg/dl (1.8-2.4); Potassium 3.4 mmol/L (3.5-5.1)
--- NOTE | 2018-12-11 09:35 | Cardiology Progress Note ---
Date of Service December 11, 2018 Assessment & Plan (1) Diastolic congestive heart failure: She continues to have a net negative fluid balance. I would continue her current dose of daily torsemide. (2) Cardiac pacemaker: Normally functioning. Occasional atrial pacing when she is not in atrial fibrillation. No evidence of device infection based on exam. (3) AF (paroxysmal atrial fibrillation): She continues to cycle in and out of atrial fibrillation. She continues to have high ventricular rates. I think we can increase her metoprolol again. Apixaban currently being held for hematuria. This should be restarted at the earliest opportunity. Subjective This morning the patient claims to be feeling well. She denied pain. She did report having a cough on occasion. She wanted me to ask the nursing staff about her breathing. She did not have a response to questions regarding her breathing. She cannot recall many events from yesterday. Review of Systems Review of Systems: Unobtainable due to cognitive status Physical Exam Physical Exam: She is alert and oriented x3. Mood affect appear normal. She answered all questions appropriately. Obese HEENT: Sclerae are anicteric. Pupils are equal and reactive to light and accommodation. Extraocular movements were intact. Neuro: Cranial nerves intact Lungs: Normal respiratory effort. Some coarse upper respiratory sounds. No expiratory wheezing. Cardiac: The rhythm was irregular. S1 and S2 were normal. There are no murmurs on examination. The PMI was not markedly displaced on palpation. Extremities: Mild bilateral lower extremity edema Skin: There are no rashes noted on examination today. Results & Data Vital Signs (Past 12 Hours) Vital Signs Temp Pulse Resp BP Pulse Ox 12/11/18 07:05 36.3 C L 108 H 20 141/84 H 94 12/11/18 07:02 100 H 20 94 12/11/18 04:00 36.4 C L 83 22 106/53 L 92 12/11/18 01:22 92 H 18 98 12/11/18 00:07 36.3 C L 86 26 H 109/69 90 ECG Additional Comments: Review of her telemetry reveals intermittent atrial fibrillation and high ventricular rate PG Care Time/CCT Total # of Minutes Spent Total Time Spent with Patient: Total time spent is greater than 50% in coordination of care (as documented) at patient's floor/unit and/or counseling patient: (1) Diastolic congestive heart failure Heart failure chronicity: acute on chronic Qualified Code(s): I50.33 - Acute on chronic diastolic (congestive) heart failure
[2018-12-11] MEDS ORDERED: METOPROLOL SUCC 50MG EXT REL TAB PO ONE (09:45)
[2018-12-11] MEDS: DOCUSATE SODIUM 100 MG CAP PO SCH (10:05)
[2018-12-11] MEDS: DAPTOmycin 475 MG in SYRINGE 0 ML IV SCH (10:06)
[2018-12-11] MEDS ORDERED: CARBOHYDRATES FOR HYPOGLYCEMIA PO PRN (12:26)
[2018-12-11] MEDS ORDERED: GLUCOSE 40% GEL 15 GM TUBE PO PRN (12:26)
[2018-12-11] MEDS ORDERED: GLUCAGON FOR INJ 1 MG VIAL SQ PRN (12:26)
[2018-12-11] MEDS ORDERED: DEXTROSE 50% 50 ML SYRINGE IV PRN (12:26)
[2018-12-11] MEDS ORDERED: GLUCOSE 10 TABS/TUBE PO PRN (12:26)
[2018-12-11] MEDS ORDERED: POTASSIUM CHLORIDE 20 MEQ TABCR PO STA (12:27)
--- NOTE | 2018-12-11 15:05 | Infectious Disease Progress Nt ---
Date of Service December 11, 2018 Assessment & Plan (1) Aspiration pneumonia: 88-year-old female under treatment for enterococcal bacteremia now with what appears to be acute aspiration pneumonitis after episode of vomiting. Clinically appears to be improving, would recommend continuing Zosyn another 2448 hrs., then transition to oral Augmentin if continues to improve. Would complete 6-week course of daptomycin, as there is concern for possibility of infected pacemaker/wire. Will follow. (2) Enterococcal bacteremia: Subjective Patient seen in follow-up for aspiration pneumonia and previous enterococcal bacteremia. Feels better today, shortness of breath and cough improved. No fever. White count slightly better today. Tolerating antibiotic without apparent difficulty. Review of Systems Review of Systems: All systems reviewed & are unremarkable except as noted in HPI & below Physical Exam Constitutional: WD/WN, vitals as above no acute distress Eyes: PERRL, conjunctivae normal, anicteric sclerae ENMT: external ear and nose normal, oropharynx normal Neck: trachea midline, no thyromegaly neck nontender Respiratory: normal respiratory effort; no respiratory distress Auscultation: + rales Cardiovascular: Rate/Rhythm: + irregularly irregular Heart Sounds: no gallop, no murmur and no cardiac rub Gastrointestinal (Abdomen): normal bowel sounds, soft, nontender, no hepatosplenomegaly Percussion/Palpation: no abdominal mass Musculoskeletal: no cyanosis or clubbing, extremities motor strength 5/5 Head/Neck/Chest: normocephalic, head atraumatic and neck supple Skin: no rashes, warm and dry Neurologic: moves all extremities; no focal motor deficits and no meningeal signs Speech / Cognition: + abnormal cognition Psychiatric: Orientation: alert and oriented to person Lymphatic: no cervical or axillary lymphadenopathy no inguinal lymphadenopathy Results & Data Vital Signs (Past 12 Hours) Vital Signs Temp Pulse Resp BP Pulse Ox Pulse Ox Pulse Ox 12/11/18 13:33 90 20 92 12/11/18 10:18 90 92 12/11/18 07:05 36.3 C L 108 H 20 141/84 H 94 12/11/18 07:02 100 H 20 94 12/11/18 04:00 36.4 C L 83 22 106/53 L 92 Pulse Ox 12/11/18 13:33 12/11/18 10:18 88 L 12/11/18 07:05 12/11/18 07:02 12/11/18 04:00 Laboratory Results Short CBC 12/11/18 Range/Units 07:30 WBC 10.23 (4.8-10.8) K/uL Hgb 12.5 (12.0-16.0) g/dL Hct 37.7 (37-47) % Plt Count 330 (130-400) K/uL BMP 12/11/18 07:30 Sodium 134 L Potassium 3.4 L D Chloride 96 L Carbon Dioxide 29 BUN 22 H D Creatinine 1.19 Glucose 167 H Calcium 9.4 Diagnostic Findings Microbiology 12/10/18 13:00 Urine,Clean Catch Urine Culture - Preliminary No growth - Less than 1,000 colonies/mL, Final report to follow. 12/06/18 21:07 Blood Aerobic Blood Culture - Preliminary No growth in Aerobic bottle after 48 hours. 12/06/18 21:07 Blood Anaerobic Blood Culture - Final 12/06/18 21:20 Blood Aerobic Blood Culture - Preliminary No growth in Aerobic bottle after 48 hours. 12/06/18 21:20 Blood Anaerobic Blood Culture - Final PG Care Time/CCT Total # of Minutes Spent Total Time Spent with Patient: Total time spent is greater than 50% in coordi nation of care (as documented) at patient's floor/unit and/or counseling patient:
[2018-12-11] MEDS: DIGOXIN 0.125 MG TAB PO SCH (16:43)
[2018-12-11] MEDS: INSULIN ASPART 100 UNITS/ML 3 ML PEN SC SCH ×2 (17:54→21:25)
--- NOTE | 2018-12-11 18:14 | Hospitalist Progress Note ---
Date of Service December 11, 2018 Assessment & Plan (1) Pneumonia: Admitted with worsening respiratory distress and confusion after vomiting episode. Has infiltrates on CXR consistent with at least aspiration pneumonitis. No fevers until evening of 12/09, with mild leukocytosis on admission which is now resolved. No further fever Productive cough is now improved on 12/11 ESR> 90, CRP 20 likely secondary to pneumonia Blood cultures remain no growth to date -Consult ID appreciated-recomends to remain on Zosyn and eventually convert to Augmentin -continue scheduled and prn nebs -Follow-up blood cultures-NGTD -pulm toilet, is OOB to chair daily which will help -Follow chest x-ray in the morning (2) AF (paroxysmal atrial fibrillation): Rapid paroxysmal Atrial fibrillation She is known to go in and out of Afib quite frequently. Did have lower BPs with it and was transferred to PCU on amiodarone gtt on 12/08 which was then dcd by Cardio on 12/09 Converted again to paced rhythm on 12/09 AM and now back in and out of Afib since then -Appreciate Cardiology consultation -Will restart apixaban as hematuria resolved -continue digoxin -Continue po dilt 30mg tid as per Cardio - increased dose of Toprol XL to 150 mg daily (had been on 200mg daily at time of discharge 3 weeks ago but was reduced to 50 mg at the longterm prior to admission) -continue tele monitoring (3) Hypertension: BPs occasionally still running on the lower side -Continue Toprol with increased dose of 150 mg today -Continue home diuretics aldactone 25 qday -decreased torsemide to 60mg po just ONCE daily -Continue diltiazem 30 mg p.o. 3 times daily (4) Urinary incontinence: [place] catheter placed while critically ill -Developed hematuria on 12/10, likely secondary to [place] trauma while on Eliquis- now resolved -No signs of infection on UA -keep Tol[place] for now but will discontinue likely tomorrow (5) Diastolic congestive heart failure: Acute on chronic diastolic CHF-now resolved proBNP was up significantly to 2500, now improved -CXR appeared worse on admission than previous with volume overload Resp distress and wheezing had significantly worsened and now is improved today, weight was down and diuresed 4L in 1 day but now weight back up after decreasing torsemide dose -was given IV albumin x 1 this admission -continue diuretics but decrease to torsemide 60mg po qAM, aldactone 25mg qday -follow daily weights, I/Os-May need to increase torsemide again if continues to gain weight (6) Asthma: With wheezing improving -Continue IV Solu Medrol -continue inhaled steroids -continue scheduled and prn nebs (7) Apnea, sleep: -Daughter brought in CPAP from home (8) Dementia, in, senility: Dementia/depression-at baseline Continue donepezil, Namenda and sertraline (9) Depression: See above (10) Bacteremia due to Gram-positive bacteria: Continue on IV Dapto for previous Enterococcus bacteremia-stop date tentatively 12/24 ID following as outpt -check CMP, CBC, ESR, CRP, CPK once weekly while on Dapto--> ESR>90, CRP 20, CPK 99 on 12/10 Had US-guided PIV-placed on 12/10-this is good for 4 weeks (11) Hematuria: Resolved -Okay to restart Eliquis -Plan to remove [place] catheter in the morning (12) DVT prophylaxis: Eliquis-restart Dispo-remain on PCU PT/OT consults placed-both are recommending SNF Case management is involved DNR/DNI Subjective Patient remains confused but does say she is not coughing today. She denies shortness of breath, denies abdominal pain. Says she ate dinner. She asks "what is the next thing we are doing tonight?" No further hematuria in her [place] catheter bag Telemetry with rapid atrial fibrillation with rates in the 70s to low 100s Review of Systems Review of Systems: All systems reviewed & are unremarkable except as noted in HPI & below Physical Exam Constitutional: + obese; no acute distress Eyes: + anicteric sclerae ENMT: Ears: no external ear abnormality Neck: trachea midline, no thyromegaly Respiratory: not tachypneic Auscultation: + wheezes (Faint expiratory wheezes bilaterally); no rhonchi Cardiovascular: Rate/Rhythm: + tachycardic (Mild) and + irregularly irregular Heart Sounds: no murmur Extremities: no edema Gastrointestinal (Abdomen): normal bowel sounds, soft, nontender, no hepatosplenomegaly Musculoskeletal: Extremities: extremities normal to inspection; no cyanosis and no clubbing Skin: no rashes, warm and dry Neurologic: moves all extremities and awake; no focal motor deficits Psychiatric: Orientation: alert, oriented to person and cooperative; + not oriented to place and + not oriented to time Genitourinary: [place] catheter with clear yellow urine Results & Data Vital Signs (Past 12 Hours) Vital Signs Temp Pulse Pulse Resp BP Pulse Ox Pulse Ox 12/11/18 16:43 97 H 12/11/18 15:55 36.6 C 73 18 101/65 94 12/11/18 13:33 90 20 92 12/11/18 10:18 90 12/11/18 07:05 36.3 C L 108 H 20 141/84 H 94 12/11/18 07:02 100 H 20 94 Pulse Ox Pulse Ox 12/11/18 16:43 12/11/18 15:55 12/11/18 13:33 12/11/18 10:18 92 88 L 12/11/18 07:05 12/11/18 07:02 Laboratory Results 12/11/18 12/11/18 12/11/18 Range/Units 16:29 07:30 07:30 WBC 10.23 (4.8-10.8) K/uL RBC 4.06 L (4.2-5.4) M/uL Hgb 12.5 (12.0-16.0) g/dL Hct 37.7 (37-47) % MCV 92.9 (80-100) fL MCH 30.8 (25-34) pg MCHC 33.2 (32-36) g/dL RDW Std Deviation 47.9 H (36.4-46.3) fL RDW Coeff of Kerry 14.1 (11.5-14.5) % Plt Count 330 (130-400) K/uL MPV 9.9 (7.4-10.4) fL Immature Gran % (Auto) 0.4 % Neut % (Auto) 85.0 % Lymph % (Auto) 12.3 % [place] % (Auto) 2.2 % Eos % (Auto) 0.0 % Baso % (Auto) 0.1 % Immature Gran # (Auto) 0.04 H (0.00-0.02) K/uL Neut # (Auto) 8.70 H (1.4-6.5) K/uL Lymph # (Auto) 1.26 (1.2-3.4) K/uL [place] # (Auto) 0.22 (0.11-0.59) K/uL Eos # (Auto) 0.00 (0-0.5) K/uL Baso # (Auto) 0.01 (0-0.2) K/uL Sodium 134 L (136-145) mmol/L Potassium 3.4 L D (3.5-5.1) mmol/L Chloride 96 L (98-107) mmol/L Carbon Dioxide 29 (21-32) mmol/L Anion Gap 9.0 (3-11) BUN 22 H D (7-18) mg/dl Creatinine 1.19 (0.6-1.2) mg/dl Est Cr Clr Drug Dosing 41.7 ml/min Est GFR ( Amer) 47.9 Est GFR (Non-Af Amer) 41.3 BUN/Creatinine Ratio 18.1 (10-20) Glucose 167 H (70-99) mg/dl POC Glucose 202 H (70-99) Calcium 9.4 (8.5-10.1) mg/dl Magnesium 2.3 (1.8-2.4) mg/dl PG Care Time/CCT Total # of Minutes Spent Total Time Spent with Patient: Total time spent is greater than 50% in coordination of care (as documented) at patient's floor/unit and/or counseling patient: (1) Diastolic congestive heart failure Heart failure chronicity: acute on chronic Qualified Code(s): I50.33 - Acute on chronic diastolic (congestive) heart failure (2) Hypertension Hypertension type: essential hypertension Qualified Code(s): I10 - Essential (primary) hypertension (3) Pneumonia Laterality: bilateral Lung location: unspecified part of lung Pneumonia type: due to unspecified organism Qualified Code(s): J18.9 - Pneumonia, unspecified organism
[2018-12-11] MEDS: NYSTATIN SUSP 500,000 U/5 ML UDC PO SCH ×2 (19:28→20:43)
[2018-12-11] MEDS: APIXABAN 5 MG TABLET PO SCH (20:43)
[2018-12-11] MEDS: INSULIN GLARGINE SOLOSTAR 100 UNITS/ML 3 ML PEN SC SCH (21:24)
[2018-12-12] MEDS: LEVALBUTEROL HCL 0.63 MG/3 ML NEB NEB SCH ×4 (01:05→19:08)
[2018-12-12] MEDS: IPRATROPIUM BROMIDE NEB SOLN 0.02% 2.5 ML VIAL INH SCH ×4 (01:05→19:08)
[2018-12-12] MEDS: PIPERACILLIN/TAZOBACTAM 4.5 GM in DEXTROSE 5% 100 ML IV SCH ×3 (04:45→21:35)
[2018-12-12] MEDS: methylPREDNISolone 60 MG in SYRINGE 0 ML IV SCH ×3 (04:45→20:42)
[2018-12-12 06:48] LABS: Calcium 9.2 mg/dl (8.5-10.1); Creatinine Clr Calc Pharmacy 32.5 ml/min; Est GFR (African American) 35.3; Est GFR (Non-African American) 30.5; Potassium 3.8 mmol/L (3.5-5.1)
[2018-12-12] MEDS: BUDESONIDE 0.5 MG/2 ML VIAL (PULMICORT) INH SCH ×2 (06:58→19:08)
--- NOTE | 2018-12-12 07:07 | XRay Report ---
XR chest 1V portable HISTORY: 88 years-old Female Hypoxia, follow-up pneumonia acute hypoxia COMPARISON: Chest radiograph 12/09/2018 and 12/06/2018 TECHNIQUE: Portable AP view of the chest FINDINGS: Cardiac silhouette is enlarged, unchanged. Calcified plaque of the thoracic aortic arch. Stable posit ioning of the left subclavian pacer. No pneumothorax. Probable trace pleural effusions.. Persistent m ixed interstitial and alveolar opacities without significant change from comparison. Degenerative gerardo nges of the shoulders and spine. Healed remote fracture deformity of the proximal left humerus. IMPRESSION: 1. Bilateral mixed interstitial and alveolar opacities, greatest within the right upper lung appear u nchanged from comparison. Pulmonary edema versus pneumonia are the differential considerations. 2. Cardiomegaly. The above report was generated using voice recognition software. It may contain grammatical, syntax o r spelling errors. Electronically signed by: Kris Hahn M.D. 12/12/2018 7:06 AM
[2018-12-12] MEDS: DOCUSATE SODIUM 100 MG CAP PO SCH (08:06)
[2018-12-12] MEDS: MEMANTINE HCL 5 MG TAB PO SCH (08:09)
[2018-12-12] MEDS: TORSEMIDE 10 MG TAB PO SCH (08:09)
[2018-12-12] MEDS: SPIRONOLACTONE 25 MG TAB PO SCH (08:09)
[2018-12-12] MEDS: dilTIAZem HCL 30 MG TAB PO SCH ×3 (08:09→20:43)
[2018-12-12] MEDS: SERTRALINE HCL 50 MG TABLET PO SCH (08:09)
[2018-12-12] MEDS: CALCIUM 600MG + VIT D 400 IU TAB PO SCH (08:09)
[2018-12-12] MEDS: APIXABAN 5 MG TABLET PO SCH ×2 (08:09→20:43)
[2018-12-12] MEDS: NYSTATIN SUSP 500,000 U/5 ML UDC PO SCH ×4 (08:10→20:42)
[2018-12-12] MEDS: POTASSIUM CHLORIDE 20 MEQ TABCR PO SCH ×2 (08:10→20:42)
[2018-12-12] MEDS: INSULIN ASPART 100 UNITS/ML 3 ML PEN SC SCH ×4 (08:11→21:38)
[2018-12-12] MEDS ORDERED: METOPROLOL SUCC 50MG EXT REL TAB PO SCH (09:00)
[2018-12-12] MEDS: DAPTOmycin 475 MG in SYRINGE 0 ML IV SCH (09:16)
--- NOTE | 2018-12-12 10:43 | Hospitalist Progress Note ---
Date of Service December 12, 2018 Assessment & Plan (1) Pneumonia: Admitted with worsening respiratory distress and confusion after vomiting episode. Has infiltrates on CXR consistent with aspiration pneumonitis. No fevers until evening of 12/09, with mild leukocytosis on admission which is now resolved. No further fever since that time Productive cough is now improved ESR> 90, CRP 20 likely secondary to pneumonia Blood cultures remain no growth to date -Consult ID appreciated-recomends to remain on Zosyn x24-48 more hours and then convert to Augmentin-today is day #5 of treatment -continue scheduled and prn nebs -Follow-up blood cultures-NGTD -pulm toilet, is OOB to chair daily which will help -Follow chest x-ray to resolution-chest x-ray on 12/12 shows persistent opacities especially in the right upper lobe (2) AF (paroxysmal atrial fibrillation): Rapid paroxysmal Atrial fibrillation She is known to go in and out of Afib quite frequently. Did have lower BPs with it and was transferred to PCU on amiodarone gtt on 12/08 which was then dcd by Cardio on 12/09 Converted again to paced rhythm on 12/09 AM and now back in and out of Afib since then Rates are much improved today into the 80s to 90s, continues in A. fib -Appreciate Cardiology consultation -Continue apixaban for anticoagulation -continue digoxin 0.125 mg once daily -Continue po dilt 30mg tid as per Cardio and eventually convert back to long- acting daily form - increased dose of Toprol XL again to 200 mg daily (had been on 200mg daily at time of discharge 3 weeks ago but was reduced to 50 mg at the custodial prior to admission) -continue tele monitoring (3) Hypertension: BPs normal -Continue Toprol now at 200 mg daily as above -Hold home diuretics aldactone 25 qday -Hold torsemide for AMBER -Continue diltiazem 30 mg p.o. 3 times daily (4) Urinary incontinence: [place] catheter placed while critically ill -Developed hematuria on 12/10, likely secondary to [place] trauma while on Eliquis- now resolved -No signs of infection on UA -Discontinued [place] today (5) Diastolic congestive heart failure: Acute on chronic diastolic CHF-now resolved proBNP was up significantly to 2500, now improved -CXR appeared worse on admission than previous with volume overload Resp distress and wheezing had significantly worsened and now is significantly improved today, weight was down and diuresed 4L in 1 day and now remained stable Is now euvolemic, creatinine increased slightly today to 1.53 -was given IV albumin x 1 this admission -We will now hold diuretics of torsemide 60mg po qAM, aldactone 25mg qday due to AMBER -follow daily weights, I/Os (6) Asthma: With wheezing now resolved after starting steroids -Continue IV Solu Medrol but decrease to every 12 frequency -continue inhaled steroids -continue scheduled and prn nebs (7) Apnea, sleep: -Daughter brought in CPAP from home (8) Dementia, in, senility: Dementia/depression-at baseline Continue donepezil, Namenda and sertraline (9) Depression: See above (10) Bacteremia due to Gram-positive bacteria: Continue on IV Dapto for previous Enterococcus bacteremia-stop date tentatively 12/24 but may go 2 weeks further after that for a total of 6 weeks ID following as outpt -check CMP, CBC, ESR, CRP, CPK once weekly while on Dapto--> ESR>90, CRP 20, CPK 99 on 12/10 Had US-guided PIV-placed on 12/10-this is good for 4 weeks (11) Hematuria: Resolved -Have since restarted Eliquis -DC [place] catheter (12) AMBER (acute kidney injury): Creatinine increased to 1.53 today from 1.0, likely secondary to overdiuresis -Hold torsemide and Aldactone although she did already receive them today -Follow BMP in the morning (13) DVT prophylaxis: Amber[place] Dispo-remain on PCU PT/OT consults placed-both are recommending SNF, patient is medically accepted to [facility]-May be stable for discharge in the next 2 to 3 days if respiratory status continues to improve Case management is involved DNR/DNI Subjective Pt looks much better today. She denies cough or shortness of breath. She is eating. She is now in the mid 90s on 4 L of oxygen via nasal cannula. Her rates are better today with her atrial fibrillation in the 80s to low 100s. She is out of bed to chair. Review of Systems Review of Systems: Unobtainable due to cognitive status Physical Exam Constitutional: + obese; no acute distress Eyes: + anicteric sclerae ENMT: Ears: no external ear abnormality Neck: trachea midline, no thyromegaly Respiratory: not tachypneic Auscultation: + rhonchi (A few in the right upper lung field); no crackles and no wheezes Cardiovascular: Rate/Rhythm: regular rate and + irregularly irregular Heart Sounds: no murmur Extremities: no edema Gastrointestinal (Abdomen): normal bowel sounds, soft, nontender, no hepatosplenomegaly Musculoskeletal: Extremities: extremities normal to inspection; no cyanosis and no clubbing Skin: no rashes, warm and dry Neurologic: moves all extremities and awake; no focal motor deficits Psychiatric: Orientation: alert, oriented to person and cooperative; + not oriented to place and + not oriented to time Results & Data Vital Signs (Past 12 Hours) Vital Signs Temp Pulse Pulse Resp BP Pulse Ox 12/12/18 07:09 36.6 C 84 20 124/84 96 12/12/18 06:58 98 H 22 92 12/12/18 03:00 36.3 C L 97 H 20 140/72 93 12/12/18 01:07 89 20 94 12/12/18 00:07 97 H 12/11/18 23:49 36.6 C 93 H 20 138/72 93 Laboratory Results 12/12/18 12/12/18 12/12/18 Range/Units 16:21 11:24 07:20 Sodium (136-145) mmol/L Potassium (3.5-5.1) mmol/L Chloride (98-107) mmol/L Carbon Dioxide (21-32) mmol/L Anion Gap (3-11) BUN (7-18) mg/dl Creatinine (0.6-1.2) mg/dl Est Cr Clr Drug Dosing ml/min Est GFR ( Amer) Est GFR (Non-Af Amer) BUN/Creatinine Ratio (10-20) Glucose (70-99) mg/dl POC Glucose 166 H 191 H 149 H (70-99) Calcium (8.5-10.1) mg/dl 12/12/18 12/11/18 Range/Units 05:52 20:10 Sodium 135 L (136-145) mmol/L Potassium 3.8 (3.5-5.1) mmol/L Chloride 98 (98-107) mmol/L Carbon Dioxide 26 (21-32) mmol/L Anion Gap 11.0 (3-11) BUN 37 H D (7-18) mg/dl Creatinine 1.53 H D (0.6-1.2) mg/dl Est Cr Clr Drug Dosing 32.5 ml/min Est GFR ( Amer) 35.3 Est GFR (Non-Af Amer) 30.5 BUN/Creatinine Ratio 24.0 H (10-20) Glucose 160 H (70-99) mg/dl POC Glucose 183 H (70-99) Calcium 9.2 (8.5-10.1) mg/dl Diagnostic Findings Chest x-ray image personally reviewed by me and agree with the following report: XR chest 1V portable HISTORY: 88 years-old Female Hypoxia, follow-up pneumonia acute hypoxia COMPARISON: Chest radiograph 12/09/2018 and 12/06/2018 TECHNIQUE: Portable AP view of the chest FINDINGS: Cardiac silhouette is enlarged, unchanged. Calcified plaque of the thoracic aortic arch. Stable positioning of the left subclavian pacer. No pneumothorax. Probable trace pleural effusions.. Persistent mixed interstitial and alveolar opacities without significant change from comparison. Degenerative changes of the shoulders and spine. Healed remote fracture deformity of the proximal left humerus. IMPRESSION: 1. Bilateral mixed interstitial and alveolar opacities, greatest within the right upper lung appear unchanged from comparison. Pulmonary edema versus pneumonia are the differential considerations. 2. Cardiomegaly. PG Care Time/CCT Total # of Minutes Spent Total Time Spent with Patient: Total time spent is greater than 50% in coordination of care (as documented) at patient's floor/unit and/or counseling patient: (1) Diastolic congestive heart failure Heart failure chronicity: acute on chronic Qualified Code(s): I50.33 - Acute on chronic diastolic (congestive) heart failure (2) Hypertension Hypertension type: essential hypertension Qualified Code(s): I10 - Essential (primary) hypertension (3) Pneumonia Laterality: bilateral Lung location: unspecified part of lung Pneumonia type: due to unspecified organism Qualified Code(s): J18.9 - Pneumonia, unspecified organism
--- NOTE | 2018-12-12 12:13 | Cardiology Progress Note ---
Date of Service December 12, 2018 Assessment & Plan (1) Diastolic congestive heart failure: Continue current dose of torsemide (2) Cardiac pacemaker: Normally functioning. Occasional atrial pacing when she is not in atrial fibrillation. No evidence of device infection based on exam. (3) AF (paroxysmal atrial fibrillation): She continues to cycle in and out of atrial fibrillation. Some high ventricular rates at times. I think we can increase her metoprolol to her prior discharge dose of 200 milligrams daily. Apixaban has been resumed. Subjective This morning the patient had no complaints. She states that her cough is better. She cannot recall eating breakfast. She denies any pain or breathing trouble. Review of Systems Review of Systems: Unobtainable due to cognitive status Physical Exam Physical Exam: She is alert oriented to person Mood affect appear normal. She answered all questions appropriately. HEENT: Sclerae are anicteric. Pupils are equal and reactive to light and accommodation. Extraocular movements were intact. Neuro: Cranial nerves intact Lungs: Apices are clear. No expiratory wheezing. Occasional crackles at bases bilaterally. Normal respiratory effort. Cardiac: The rhythm was irregular. S1 and S2 were normal. There are no murmurs on examination. The PMI was not markedly displaced on palpation. Extremities: Mild lower extremity edema Skin: There are no rashes noted on examination today. Results & Data Vital Signs (Past 12 Hours) Vital Signs Temp Pulse Resp BP Pulse Ox 12/12/18 11:12 36.4 C L 87 20 111/67 92 12/12/18 07:09 36.6 C 84 20 124/84 96 12/12/18 06:58 98 H 22 92 12/12/18 03:00 36.3 C L 97 H 20 140/72 93 12/12/18 01:07 89 20 94 Laboratory Results Abnormal Lab Results 12/11/18 12/11/18 12/12/18 16:29 20:10 05:52 Sodium 135 L Potassium 3.8 Chloride 98 Carbon Dioxide 26 Anion Gap 11.0 BUN 37 H D Creatinine 1.53 H D Est Cr Clr Drug Dosing 32.5 Est GFR ( Amer) 35.3 Est GFR (Non-Af Amer) 30.5 BUN/Creatinine Ratio 24.0 H Glucose 160 H POC Glucose 202 H 183 H Calcium 9.2 12/12/18 12/12/18 07:20 11:24 Sodium Potassium Chloride Carbon Dioxide Anion Gap BUN Creatinine Est Cr Clr Drug Dosing Est GFR ( Amer) Est GFR (Non-Af Amer) BUN/Creatinine Ratio Glucose POC Glucose 149 H 191 H Calcium PG Care Time/CCT Total # of Minutes Spent Total Time Spent with Patient: Total time spent is greater than 50% in coordination of care (as documented) at patient's floor/unit and/or counseling patient: (1) Diastolic congestive heart failure Heart failure chronicity: acute on chronic Qualified Code(s): I50.33 - Acute on chronic diastolic (congestive) heart failure
[2018-12-12] MEDS: DIGOXIN 0.125 MG TAB PO SCH (16:09)
--- NOTE | 2018-12-12 19:01 | Infectious Disease Progress Nt ---
Date of Service December 12, 2018 Assessment & Plan (1) Aspiration pneumonia: 88-year-old female under treatment for enterococcal bacteremia now with what appears to be acute aspiration pneumonitis after episode of vomiting. Clinically appears to be improving, would recommend continuing Zosyn another 2448 hrs., then transition to oral Augmentin if continues to improve. Would complete 6-week course of daptomycin, as there is concern for possibility of infected pacemaker/wire. Will follow. (2) Enterococcal bacteremia: Subjective This morning the patient had no complaints. She states that her cough is better. She cannot recall eating breakfast. She denies any pain or breathing trouble. Review of Systems Review of Systems: All systems reviewed & are unremarkable except as noted in HPI & below Physical Exam Constitutional: WD/WN, vitals as above no acute distress Eyes: PERRL, conjunctivae normal, anicteric sclerae ENMT: external ear and nose normal, oropharynx normal Neck: trachea midline, no thyromegaly neck nontender Respiratory: normal respiratory effort; no respiratory distress Auscultation: + rales Cardiovascular: Rate/Rhythm: + irregularly irregular Heart Sounds: no gallop, no murmur and no cardiac rub Gastrointestinal (Abdomen): normal bowel sounds, soft, nontender, no hepatosplenomegaly Percussion/Palpation: no abdominal mass Musculoskeletal: no cyanosis or clubbing, extremities motor strength 5/5 Head/Neck/Chest: normocephalic, head atraumatic and neck supple Skin: no rashes, warm and dry Neurologic: moves all extremities; no focal motor deficits and no meningeal signs Speech / Cognition: + abnormal cognition Psychiatric: Orientation: alert and oriented to person Lymphatic: no cervical or axillary lymphadenopathy no inguinal lymphadenopathy Results & Data Vital Signs (Past 12 Hours) Vital Signs Temp Pulse Pulse Resp BP Pulse Ox 12/12/18 17:15 93 H 12/12/18 16:09 89 12/12/18 15:16 36.7 C 89 18 100/59 L 92 12/12/18 13:10 82 18 94 12/12/18 11:12 36.4 C L 87 20 111/67 92 12/12/18 07:09 36.6 C 84 20 124/84 96 Laboratory Results [facility] 12/12/18 05:52 Sodium 135 L Potassium 3.8 Chloride 98 Carbon Dioxide 26 BUN 37 H D Creatinine 1.53 H D Glucose 160 H Calcium 9.2 Diagnostic Findings Microbiology 12/10/18 13:00 Urine,Clean Catch Urine Culture - Final No growth - less than 1,000 colonies/mL. 12/06/18 21:20 Blood Aerobic Blood Culture - Final No growth in Aerobic bottle after 5 days. 12/06/18 21:20 Blood Anaerobic Blood Culture - Final 12/06/18 21:07 Blood Aerobic Blood Culture - Final No growth in Aerobic bottle after 5 days. 12/06/18 21:07 Blood Anaerobic Blood Culture - Final XR chest 1V portable HISTORY: 88 years-old Female Hypoxia, follow-up pneumonia acute hypoxia COMPARISON: Chest radiograph 12/09/2018 and 12/06/2018 TECHNIQUE: Portable AP view of the chest FINDINGS: Cardiac silhouette is enlarged, unchanged. Calcified plaque of the thoracic aortic arch. Stable positioning of the left subclavian pacer. No pneumothorax. Probable trace pleural effusions.. Persistent mixed interstitial and alveolar opacities without significant change from comparison. Degenerative changes of the shoulders and spine. Healed remote fracture deformity of the proximal left humerus. IMPRESSION: 1. Bilateral mixed interstitial and alveolar opacities, greatest within the right upper lung appear unchanged from comparison. Pulmonary edema versus pneumonia are the differential considerations. 2. Cardiomegaly. The above report was generated using voice recognition software. It may contain grammatical, syntax or spelling errors. PG Care Time/CCT Total # of Minutes Spent Total Time Spent with Patient: Total time spent is greater than 50% in coordination of care (as documented) at patient's floor/unit and/or counseling patient:
[2018-12-12] MEDS: INSULIN GLARGINE SOLOSTAR 100 UNITS/ML 3 ML PEN SC SCH (21:36)
[2018-12-13] MEDS: LEVALBUTEROL HCL 0.63 MG/3 ML NEB NEB SCH ×4 (01:08→19:23)
[2018-12-13] MEDS: IPRATROPIUM BROMIDE NEB SOLN 0.02% 2.5 ML VIAL INH SCH ×4 (01:08→19:22)
[2018-12-13] MEDS: PIPERACILLIN/TAZOBACTAM 4.5 GM in DEXTROSE 5% 100 ML IV SCH (05:43)
[2018-12-13 06:22] LABS: BUN Creatinine Ratio 30.9 (10-20); Calcium 9.1 mg/dl (8.5-10.1); Est GFR (African American) 34.8; Magnesium 2.6 mg/dl (1.8-2.4); Potassium 3.8 mmol/L (3.5-5.1)
[2018-12-13] MEDS: BUDESONIDE 0.5 MG/2 ML VIAL (PULMICORT) INH SCH ×2 (06:52→19:23)
[2018-12-13] MEDS: INSULIN ASPART 100 UNITS/ML 3 ML PEN SC SCH ×4 (07:54→20:29)
[2018-12-13] MEDS: methylPREDNISolone 60 MG in SYRINGE 0 ML IV SCH ×2 (08:39→20:27)
[2018-12-13] MEDS: MEMANTINE HCL 5 MG TAB PO SCH (08:39)
[2018-12-13] MEDS: SERTRALINE HCL 50 MG TABLET PO SCH (08:39)
[2018-12-13] MEDS: CALCIUM 600MG + VIT D 400 IU TAB PO SCH (08:40)
[2018-12-13] MEDS: METOPROLOL SUCC 50MG EXT REL TAB PO SCH (08:40)
[2018-12-13] MEDS: APIXABAN 5 MG TABLET PO SCH ×2 (08:41→20:24)
[2018-12-13] MEDS: POTASSIUM CHLORIDE 20 MEQ TABCR PO SCH ×2 (08:41→20:24)
[2018-12-13] MEDS: dilTIAZem HCL 30 MG TAB PO SCH ×3 (08:42→20:24)
[2018-12-13] MEDS: NYSTATIN SUSP 500,000 U/5 ML UDC PO SCH ×4 (08:42→20:24)
[2018-12-13] MEDS: DOCUSATE SODIUM 100 MG CAP PO SCH (08:43)
--- NOTE | 2018-12-13 09:02 | Cardiology Progress Note ---
Date of Service December 13, 2018 Assessment & Plan (1) Diastolic congestive heart failure: She diuresed quite a bit at the beginning of her admission. There is some concern for intravascular depletion currently based on her laboratory studies. Diuretics being held. (2) Cardiac pacemaker: Normally functioning. Occasional atrial pacing when she is not in atrial fibrillation. No evidence of device infection based on exam although appears the plan is to treat her for 6 weeks in any event. (3) AF (paroxysmal atrial fibrillation): Overall rates are better. I think we continue her on the current regimen. I will switch her diltiazem to the long-acting formulation beginning tomorrow. She will continue apixaban indefinitely. Subjective She did not verbalize any specific complaints this morning she denies any pain. She is not aware of any coughing really. She denies any breathing difficulty. Review of Systems Review of Systems: Unobtainable due to cognitive status Physical Exam Physical Exam: She is alert and oriented to person. She has her questions appropriately. Occasionally she cannot recall an answer. HEENT: Sclerae are anicteric. Pupils are equal and reactive to light and accommodation. Extraocular movements were intact. Neuro: Cranial nerves intact Lungs: Overall clear today with normal respiratory effort. No expiratory wheezing. Cardiac: The rhythm was irregular. S1 and S2 were normal. There are no murmurs on examination. The PMI was not markedly displaced on palpation. Abdomen: The abdomen was soft and nontender. Extremities: Mild lower extremity edema bilaterally Skin: There are no rashes noted on examination today. Results & Data Vital Signs (Past 12 Hours) Vital Signs Temp Pulse Resp BP Pulse Ox 12/13/18 07:02 36.7 C 110 H 20 122/69 95 12/13/18 06:52 105 H 18 93 12/13/18 03:23 36.5 C 66 16 150/78 H 95 12/13/18 01:11 87 18 94 12/12/18 23:30 36.6 C 96 H 21 118/77 92 Laboratory Results Abnormal Lab Results 12/12/18 12/12/18 12/12/18 07:20 11:24 16:21 Sodium Potassium Chloride Carbon Dioxide Anion Gap BUN Creatinine Est Cr Clr Drug Dosing Est GFR ( Amer) Est GFR (Non-Af Amer) BUN/Creatinine Ratio Glucose POC Glucose 149 H 191 H 166 H Calcium Magnesium 12/12/18 12/13/18 12/13/18 21:27 05:31 07:21 Sodium 135 L Potassium 3.8 Chloride 99 Carbon Dioxide 28 Anion Gap 8.0 BUN 48 H Creatinine 1.55 H Est Cr Clr Drug Dosing 32.0 Est GFR ( Amer) 34.8 Est GFR (Non-Af Amer) 30.0 BUN/Creatinine Ratio 30.9 H Glucose 154 H POC Glucose 145 H 158 H Calcium 9.1 Magnesium 2.6 H PG Care Time/CCT Total # of Minutes Spent Total Time Spent with Patient: Total time spent is greater than 50% in coordination of care (as documented) at patient's floor/unit and/or counseling patient: (1) Diastolic congestive heart failure Heart failure chronicity: acute on chronic Qualified Code(s): I50.33 - Acute on chronic diastolic (congestive) heart failure
[2018-12-13] MEDS: DAPTOmycin 475 MG in SYRINGE 0 ML IV SCH (09:54)
--- NOTE | 2018-12-13 11:29 | Hospitalist Progress Note ---
Date of Service December 13, 2018 Assessment & Plan (1) Pneumonia: Admitted with worsening respiratory distress and confusion after vomiting episode. Has infiltrates on CXR consistent with aspiration pneumonitis. No fevers until evening of 12/09, with mild leukocytosis on admission which is now resolved. No further fever since that time Productive cough is now improved , overall respiratory status improved ESR> 90, CRP 20 likely secondary to pneumonia Blood cultures remain no growth to date -Consult ID appreciated-received Zosyn and will now convert to Augmentin-today is day #6 of 7 of treatment -continue scheduled and prn nebs -Follow-up blood cultures-NGTD -pulm toilet, is OOB to chair daily which will help -Follow chest x-ray to resolution-chest x-ray on 12/12 shows persistent opacities especially in the right upper lobe (2) AF (paroxysmal atrial fibrillation): Rapid paroxysmal Atrial fibrillation She is known to go in and out of Afib quite frequently. Did have lower BPs with it and was transferred to PCU on amiodarone gtt on 12/08 which was then dcd by Cardio on 12/09 Converted again to paced rhythm on 12/09 AM and now back in and out of Afib since then Rates are much improved today into the 80s, continues in A. fib -Appreciate Cardiology consultation -Continue apixaban for anticoagulation -continue digoxin 0.125 mg once daily -Continue po dilt 30mg tid as per Cardio and eventually convert back to long- acting daily form - increased dose of Toprol XL again to 200 mg daily (had been on 200mg daily at time of discharge 3 weeks ago but was reduced to 50 mg at the [place] [facility] prior to admission) stable for transfer off tele (3) Hypertension: BPs normal -Continue Toprol now at 200 mg daily as above -Hold home diuretics aldactone 25 qday -continue to Hold torsemide for AMBER -Continue diltiazem 30 mg p.o. 3 times daily (4) Urinary incontinence: [place] catheter placed while critically ill -Developed hematuria on 12/10, likely secondary to [place] trauma while on Eliquis- now resolved -No signs of infection on UA -Discontinued [place] , voiding, incontinent (5) Diastolic congestive heart failure: Acute on chronic diastolic CHF-now resolved proBNP was up significantly to 2500, now improved -CXR appeared worse on admission than previous with volume overload Resp distress and wheezing had significantly worsened and now is significantly improved today, weight was down and diuresed 4L in 1 day and now remained stable Is now euvolemic, creatinine increased but stable at 1.5 -was given IV albumin x 1 this admission -continue to hold diuretics of torsemide 60mg po qAM, aldactone 25mg qday due to AMBER -follow daily weights, I/Os (6) Asthma: With wheezing now resolved after starting steroids -Continue IV Solu Medrol but decrease to every 12 frequency and switch to prednisone eventually -continue inhaled steroids -continue scheduled and prn nebs (7) Apnea, sleep: -Daughter brought in CPAP from home (8) Dementia, in, senility: Dementia/depression-at baseline Continue donepezil (restarted today), Namenda and sertraline (9) Depression: See above (10) Bacteremia due to Gram-positive bacteria: Continue on IV Dapto for previous Enterococcus bacteremia-stop date tentatively 12/24 but may go 2 weeks further after that for a total of 6 weeks ID following as outpt -check CMP, CBC, ESR, CRP, CPK once weekly while on Dapto--> ESR>90, CRP 20, CPK 99 on 12/10 Had US-guided PIV-placed on 12/10-this is good for 4 weeks (11) Hematuria: Resolved -Have since restarted Eliquis -DCd [place] catheter (12) AMBER (acute kidney injury): Creatinine increased to 1.5 from 1.0 and now stable, likely secondary to overdiuresis -continue to hold torsemide and Aldactone -Follow BMP in the morning (13) DVT prophylaxis: Eliquis Dispo-tx to med floor PT/OT consults placed-both are recommending SNF, patient [facility]-May be stable for discharge in the next 2 to 3 days if respiratory status continues to improve Case management is involved DNR/DNI Subjective Pt confused pleasantly but appears much better. Denies cough or problems. Had incontinence to urine and stool. Tele with Afib/flutter with rates [id number] Review of Systems Review of Systems: All systems reviewed & are unremarkable except as noted in HPI & below Physical Exam Constitutional: + obese; no acute distress Eyes: + anicteric sclerae ENMT: Ears: no external ear abnormality Neck: trachea midline, no thyromegaly Respiratory: not tachypneic Auscultation: no crackles, no rhonchi and no wheezes Cardiovascular: Rate/Rhythm: regular rate and + irregularly irregular Heart Sounds: no murmur Extremities: no edema Gastrointestinal (Abdomen): normal bowel sounds, soft, nontender, no hepatosplenomegaly Musculoskeletal: Extremities: extremities normal to inspection; no cyanosis and no clubbing Skin: no rashes, warm and dry Neurologic: moves all extremities and awake; no focal motor deficits Psychiatric: Orientation: alert, oriented to person and cooperative; + not oriented to place and + not oriented to time Results & Data Vital Signs (Past 12 Hours) Vital Signs Temp Pulse Pulse Resp BP Pulse Ox 12/13/18 11:14 94 12/13/18 11:12 36.4 C L 90 19 116/75 96 12/13/18 07:40 95 H 12/13/18 07:02 36.7 C 110 H 20 122/69 95 12/13/18 06:52 105 H 18 93 12/13/18 03:23 36.5 C 66 16 150/78 H 95 12/13/18 01:11 87 18 94 12/12/18 23:30 36.6 C 96 H 21 118/77 92 Laboratory Results 12/13/18 12/13/18 12/12/18 Range/Units 07:21 05:31 21:27 Sodium 135 L (136-145) mmol/L Potassium 3.8 (3.5-5.1) mmol/L Chloride 99 (98-107) mmol/L Carbon Dioxide 28 (21-32) mmol/L Anion Gap 8.0 (3-11) BUN 48 H (7-18) mg/dl Creatinine 1.55 H (0.6-1.2) mg/dl Est Cr Clr Drug Dosing 32.0 ml/min Est GFR ( Amer) 34.8 Est GFR (Non-Af Amer) 30.0 BUN/Creatinine Ratio 30.9 H (10-20) Glucose 154 H (70-99) mg/dl POC Glucose 158 H 145 H (70-99) Calcium 9.1 (8.5-10.1) mg/dl Magnesium 2.6 H (1.8-2.4) mg/dl 12/12/18 12/12/18 Range/Units 16:21 11:24 Sodium (136-145) mmol/L Potassium (3.5-5.1) mmol/L Chloride (98-107) mmol/L Carbon Dioxide (21-32) mmol/L Anion Gap (3-11) BUN (7-18) mg/dl Creatinine (0.6-1.2) mg/dl Est Cr Clr Drug Dosing ml/min Est GFR ( Amer) Est GFR (Non-Af Amer) BUN/Creatinine Ratio (10-20) Glucose (70-99) mg/dl POC Glucose 166 H 191 H (70-99) Calcium (8.5-10.1) mg/dl Magnesium (1.8-2.4) mg/dl PG Care Time/CCT Total # of Minutes Spent Total Time Spent with Patient: Total time spent is greater than 50% in coordination of care (as documented) at patient's floor/unit and/or counseling patient: (1) Diastolic congestive heart failure Heart failure chronicity: acute on chronic Qualified Code(s): I50.33 - Acute on chronic diastolic (congestive) heart failure (2) Hypertension Hypertension type: essential hypertension Qualified Code(s): I10 - Essential (primary) hypertension (3) Pneumonia Laterality: bilateral Lung location: unspecified part of lung Pneumonia type: due to unspecified organism Qualified Code(s): J18.9 - Pneumonia, unspecified organism
--- NOTE | 2018-12-13 16:10 | Infectious Disease Progress Nt ---
Date of Service December 13, 2018 Assessment & Plan (1) Aspiration pneumonia: 88-year-old female under treatment for enterococcal bacteremia now with what appears to be acute aspiration pneumonitis after episode of vomiting. Clinically appears to be improving, would recommend continuing Augmentin for another 7 days or so. Would complete 6-week course of daptomycin, as there is concern for possibility of infected pacemaker/wire. Will follow. (2) Enterococcal bacteremia: Subjective She did not verbalize any specific complaints this morning she denies any pain. She is not aware of any coughing really. She denies any breathing difficulty. Review of Systems Review of Systems: All systems reviewed & are unremarkable except as noted in HPI & below Physical Exam Constitutional: WD/WN, vitals as above no acute distress Eyes: PERRL, conjunctivae normal, anicteric sclerae ENMT: external ear and nose normal, oropharynx normal Neck: trachea midline, no thyromegaly neck nontender Respiratory: normal respiratory effort; no respiratory distress Auscultation: + rales Cardiovascular: Rate/Rhythm: + irregularly irregular Heart Sounds: no gallop, no murmur and no cardiac rub Gastrointestinal (Abdomen): normal bowel sounds, soft, nontender, no hepatosplenomegaly Percussion/Palpation: no abdominal mass Musculoskeletal: no cyanosis or clubbing, extremities motor strength 5/5 Head/Neck/Chest: normocephalic, head atraumatic and neck supple Skin: no rashes, warm and dry Neurologic: moves all extremities; no focal motor deficits and no meningeal signs Speech / Cognition: + abnormal cognition Psychiatric: Orientation: alert and oriented to person Lymphatic: no cervical or axillary lymphadenopathy no inguinal lymphad enopathy Results & Data Vital Signs (Past 12 Hours) Vital Signs Temp Pulse Pulse Resp BP Pulse Ox 12/13/18 13:28 86 18 96 12/13/18 13:15 36.5 C 85 16 116/71 92 12/13/18 11:14 94 12/13/18 11:12 36.4 C L 90 19 116/75 96 12/13/18 07:40 95 H 12/13/18 07:02 36.7 C 110 H 20 122/69 95 12/13/18 06:52 105 H 18 93 PG Care Time/CCT Total # of Minutes Spent Total Time Spent with Patient: Total time spent is greater than 50% in coordination of care (as documented) at patient's floor/unit and/or counseling patient:
[2018-12-13] MEDS: DIGOXIN 0.125 MG TAB PO SCH (17:10)
[2018-12-13] MEDS: AMOXICILLIN/CLAVULANATE 875 MG TAB PO SCH (17:10)
[2018-12-13] MEDS: DONEPEZIL HCL 10 MG TAB PO SCH (20:24)
[2018-12-13] MEDS: INSULIN GLARGINE SOLOSTAR 100 UNITS/ML 3 ML PEN SC SCH (20:26)
[2018-12-14] MEDS: LEVALBUTEROL HCL 0.63 MG/3 ML NEB NEB SCH ×4 (01:05→18:44)
[2018-12-14] MEDS: IPRATROPIUM BROMIDE NEB SOLN 0.02% 2.5 ML VIAL INH SCH ×4 (01:05→18:44)
[2018-12-14 06:16] LABS: Basophils # (auto) 0.02 K/uL (0-0.2); Basophils % (auto) 0.1 %; Hematocrit (blood only) 41.6 % (37-47); Immature Granulocytes # (auto) 0.19 K/uL (0.00-0.02); Immature Granulocytes % (auto) 1.4 %; Lymphocytes # (auto) 1.69 K/uL (1.2-3.4); Lymphocytes % (auto) 12.3 %; Mean Corpuscular Hgb Conc 33.7 g/dL (32-36); Mean Platelet Volume 9.6 fL (7.4-10.4); Monocytes # (auto) 0.85 K/uL (0.11-0.59); Monocytes % (auto) 6.2 %; Neutrophils # (auto) 10.94 K/uL (1.4-6.5); Platelet Count 361 K/uL (130-400); RDW Coefficient of Variation 14.5 % (11.5-14.5); Red Blood Count 4.38 M/uL (4.2-5.4); White Blood Count 13.69 K/uL (4.8-10.8)
[2018-12-14 06:42] LABS: BUN Creatinine Ratio 36.9 (10-20); Calcium 9.4 mg/dl (8.5-10.1); Creatinine Clr Calc Pharmacy 40.6 ml/min; Est GFR (African American) 46.5; Est GFR (Non-African American) 40.1; Magnesium 2.9 mg/dl (1.8-2.4); Potassium 4.1 mmol/L (3.5-5.1)
[2018-12-14] MEDS: BUDESONIDE 0.5 MG/2 ML VIAL (PULMICORT) INH SCH ×2 (06:56→18:44)
[2018-12-14] MEDS: APIXABAN 5 MG TABLET PO SCH ×2 (08:35→21:12)
[2018-12-14] MEDS: methylPREDNISolone 60 MG in SYRINGE 0 ML IV SCH ×2 (08:35→21:10)
[2018-12-14] MEDS: AMOXICILLIN/CLAVULANATE 875 MG TAB PO SCH ×2 (08:36→16:56)
[2018-12-14] MEDS: CALCIUM 600MG + VIT D 400 IU TAB PO SCH (08:36)
[2018-12-14] MEDS: NYSTATIN SUSP 500,000 U/5 ML UDC PO SCH ×4 (08:37→21:11)
[2018-12-14] MEDS: DOCUSATE SODIUM 100 MG CAP PO SCH (08:37)
[2018-12-14] MEDS: POTASSIUM CHLORIDE 20 MEQ TABCR PO SCH ×2 (08:37→21:13)
[2018-12-14] MEDS: SERTRALINE HCL 50 MG TABLET PO SCH (08:38)
[2018-12-14] MEDS: MEMANTINE HCL 5 MG TAB PO SCH (08:38)
[2018-12-14] MEDS: METOPROLOL SUCC 50MG EXT REL TAB PO SCH (08:38)
[2018-12-14] MEDS: INSULIN ASPART 100 UNITS/ML 3 ML PEN SC SCH ×4 (08:56→21:16)
[2018-12-14] MEDS ORDERED: dilTIAZem ER 120 MG CAPCR PO SCH (09:00)
[2018-12-14] MEDS: DAPTOmycin 475 MG in SYRINGE 0 ML IV SCH (10:06)
[2018-12-14] MEDS: DIGOXIN 0.125 MG TAB PO SCH (16:56)
[2018-12-14] MEDS: DONEPEZIL HCL 10 MG TAB PO SCH (21:13)
[2018-12-14] MEDS: INSULIN GLARGINE SOLOSTAR 100 UNITS/ML 3 ML PEN SC SCH (21:14)
--- NOTE | 2018-12-14 23:52 | Hospitalist Progress Note ---
Date of Service December 14, 2018 Assessment & Plan (1) Pneumonia: Admitted with worsening respiratory distress and confusion after vomiting episode. Has infiltrates on CXR consistent with aspiration pneumonitis. No fevers until evening of 12/09, with mild leukocytosis on admission which is now resolved. No further fever since that time Productive cough is now improved , overall respiratory status greatly improved ESR> 90, CRP 20 likely secondary to pneumonia Blood cultures remain no growth to date -Consult ID appreciated-received Zosyn and will then converted to Augmentin- today is day #7 of 14 as of treatment as per ID recommendation for 14 days -continue scheduled and prn nebs -Follow-up blood cultures-NGTD -pulm toilet, is OOB to chair daily-not today--> d/w RN to get her OOB for dinner -Follow chest x-ray to resolution-chest x-ray on 12/12 shows persistent opacities especially in the right upper lobe (2) AF (paroxysmal atrial fibrillation): Rapid paroxysmal Atrial fibrillation She is known to go in and out of Afib quite frequently. Did have lower BPs with it and was transferred to PCU on amiodarone gtt on 12/08 which was then dcd by Cardio on 12/09 Converted again to paced rhythm on 12/09 AM and now back in and out of Afib since then Rates are much improved now into the 80s, continues in A. 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 3 times daily (4) Urinary incontinence: [place] catheter placed while critically ill -Developed hematuria on 12/10, likely secondary to [place] trauma while on Eliquis- now resolved -No signs of infection on UA -Discontinued [place] , voiding, incontinent (5) Diastolic congestive heart failure: Acute on chronic diastolic CHF-now resolved proBNP was up significantly to 2500, now improved -CXR appeared worse on admission than previous with volume overload Resp distress and wheezing had significantly worsened and now is resolved, weight was down and diuresed 4L in 1 day and now remained stable Is now euvolemic, creatinine increased to 1.5 and now down to 1.2 -was given IV albumin x 1 this admission -continue to hold diuretics of torsemide 60mg po qAM, aldactone 25mg qday due to AMBER but may restart torsemide lower dose tomorrow -follow daily weights, I/Os (6) Asthma: With wheezing now resolved after starting steroids -Continue IV Solu Medrol and switch to prednisone tomorrow -continue inhaled steroids -continue scheduled and prn nebs (7) Apnea, sleep: -Daughter brought in CPAP from home (8) Dementia, in, senility: Dementia/depression-at baseline Continue donepezil (restarted today), Namenda and sertraline (9) Depression: See above (10) Bacteremia due to Gram-positive bacteria: Continue on IV Dapto for previous Enterococcus bacteremia-stop date tentatively 12/24 but may go 2 weeks further after that for a total of 6 weeks to 01/07 ID following as outpt -check CMP, CBC, ESR, CRP, CPK once weekly while on Dapto--> ESR>90, CRP 20, CPK 99 on 12/10 Had US-guided PIV-placed on 12/10-this is good for 4 weeks (11) Hematuria: Resolved -Have since restarted Eliquis -DCd [place] catheter (12) AMBER (acute kidney injury): Creatinine increased to 1.5 from 1.0 and now stable, likely secondary to overdiuresis. 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 She does wake up and say "what's the next thing after dinner?" Discussed with nursing and she has not been out of bed yet all day Review of Systems Review of Systems: All systems reviewed & are unremarkable except as noted in HPI & below Physical Exam Constitutional: + obese; no acute distress Eyes: + anicteric sclerae ENMT: Ears: no external ear abnormality Neck: trachea midline, no thyromegaly Respiratory: not tachypneic Auscultation: no crackles, no rhonchi and no wheezes Cardiovascular: Rate/Rhythm: regular rate and + irregularly irregular Heart Sounds: no murmur Extremities: no edema Gastrointestinal (Abdomen): normal bowel sounds, soft, nontender, no hepatosplenomegaly Musculoskeletal: Extremities: extremities normal to inspection; no cyanosis and no clubbing Skin: no rashes, warm and dry Neurologic: moves all extremities and awake; no focal motor deficits Psychiatric: Orientation: alert, oriented to person and cooperative; + not oriented to place and + not oriented to time Results & Data Vital Signs (Past 12 Hours) Vital Signs Temp Pulse Pulse Resp BP Pulse Ox 12/14/18 22:37 36.5 C 85 20 145/89 H 93 12/14/18 18:47 81 20 94 12/14/18 16:56 62 12/14/18 15:02 36.5 C 87 20 125/82 90 12/14/18 13:18 78 20 94 PG Care Time/CCT Total # of Minutes Spent Total Time Spent with Patient: Total time spent is greater than 50% in coordination of care (as documented) at patient's floor/unit and/or counseling patient: (1) Diastolic congestive heart failure Heart failure chronicity: acute on chronic Qualified Code(s): I50.33 - Acute on chronic diastolic (congestive) heart failure (2) Hypertension Hypertension type: essential hypertension Qualified Code(s): I10 - Essential (primary) hypertension (3) Pneumonia Laterality: bilateral Lung location: unspecified part of lung Pneumonia type: due to unspecified organism Qualified Code(s): J18.9 - Pneumonia, unspecified organism
[2018-12-15] MEDS: IPRATROPIUM BROMIDE NEB SOLN 0.02% 2.5 ML VIAL INH SCH ×4 (00:57→18:46)
[2018-12-15] MEDS: LEVALBUTEROL HCL 0.63 MG/3 ML NEB NEB SCH ×4 (00:57→18:46)
[2018-12-15] MEDS: BUDESONIDE 0.5 MG/2 ML VIAL (PULMICORT) INH SCH ×2 (06:50→18:46)
[2018-12-15 06:54] LABS: BUN Creatinine Ratio 40.3 (10-20); Calcium 9.1 mg/dl (8.5-10.1); Creatinine Clr Calc Pharmacy 54.5 ml/min; Est GFR (African American) 66.2; Est GFR (Non-African American) 57.1; Potassium 4.5 mmol/L (3.5-5.1)
[2018-12-15] MEDS: APIXABAN 5 MG TABLET PO SCH ×2 (07:52→20:07)
[2018-12-15] MEDS: NYSTATIN SUSP 500,000 U/5 ML UDC PO SCH ×4 (07:52→20:08)
[2018-12-15] MEDS: methylPREDNISolone 60 MG in SYRINGE 0 ML IV SCH ×2 (07:52→20:08)
[2018-12-15] MEDS: SERTRALINE HCL 50 MG TABLET PO SCH (07:53)
[2018-12-15] MEDS: POTASSIUM CHLORIDE 20 MEQ TABCR PO SCH ×2 (07:54→20:07)
[2018-12-15] MEDS: METOPROLOL SUCC 50MG EXT REL TAB PO SCH (07:54)
[2018-12-15] MEDS: CALCIUM 600MG + VIT D 400 IU TAB PO SCH (07:55)
[2018-12-15] MEDS: MEMANTINE HCL 5 MG TAB PO SCH (07:55)
[2018-12-15] MEDS: AMOXICILLIN/CLAVULANATE 875 MG TAB PO SCH ×2 (07:55→17:16)
[2018-12-15] MEDS: DOCUSATE SODIUM 100 MG CAP PO SCH (08:44)
[2018-12-15] MEDS: INSULIN ASPART 100 UNITS/ML 3 ML PEN SC SCH ×4 (08:46→20:17)
[2018-12-15] MEDS: DAPTOmycin 475 MG in SYRINGE 0 ML IV SCH (10:59)
[2018-12-15] MEDS: TORSEMIDE 10 MG TAB PO SCH (11:00)
[2018-12-15] MEDS: DIGOXIN 0.125 MG TAB PO SCH (16:10)
--- NOTE | 2018-12-15 17:00 | Hospitalist Progress Note ---
Date of Service December 15, 2018 Assessment & Plan (1) Pneumonia: Admitted with worsening respiratory distress and confusion after vomiting episode. Has infiltrates on CXR consistent with aspiration pneumonitis. No fevers until evening of 12/09, with mild leukocytosis on admission which is n ow resolved. No further fever since that time Productive cough is now much improved , overall respiratory status greatly improved ESR> 90, CRP 20 likely secondary to pneumonia Blood cultures finalized negative -Consult ID appreciated-received Zosyn and then converted to Augmentin-today is day #8 of 14 as of treatment as per ID recommendation for another 7 days of Augmentin after having 7 days of Zosyn -continue scheduled and prn nebs -pulm toilet, discussed again with nursing about the patient getting OOB to chair daily-for all meals-nursing did then get her to a chair and she did very well -Follow chest x-ray to resolution-chest x-ray on 12/12 shows persistent opacities especially in the right upper lobe -will order chest x-ray for the morning (2) AF (paroxysmal atrial fibrillation): Rapid paroxysmal Atrial fibrillation She is known to go in and out of Afib quite frequently. Did have lower BPs with it and was transferred to PCU on amiodarone gtt on 12/08 which was then dcd by Cardio on 12/09 Converted again to paced rhythm on 12/09 AM and now back in and out of Afib since then Rates continue to be much improved now in the 70s-80s, continues in A. fib clinically, has since been removed from telemetry -Appreciate Cardiology consultation -Continue apixaban for anticoagulation -continue digoxin 0.125 mg once daily -Was receiving po dilt 30mg tid as per Cardio and was to convert back to long- acting daily form, however cardiology then discontinued it and her rates remain normal-would not restart diltiazem at this time - increased dose of Toprol XL again to 200 mg daily (had been on 200mg daily at time of discharge 3 weeks ago but was reduced to 50 mg at the intermediate prior to admission) (3) Hypertension: BPs normal -Continue Toprol now at 200 mg daily as above -Continue to hold home aldactone 25 qday and would likely not restart -Restarted torsemide at 40 mg once daily on 12/15-her previous home dose was 60 mg twice daily and she was too dried out -Follow renal function (4) Urinary incontinence: [place] catheter placed while critically ill -Developed hematuria on 12/10, likely secondary to [place] trauma while on Eliquis- now resolved -No signs of infection on UA -Discontinued [place] , has a pure wick in place (5) Diastolic congestive heart failure: Acute on chronic diastolic CHF-now resolved proBNP was up significantly to 2500, now improved -CXR appeared worse on admission than previous with volume overload Resp distress and wheezing had significantly worsened and now is resolved, weight was down and essentially stable over the last 6 days at 122 kg Remains euvolemic, creatinine increased to 1.5 and now down to 0.9 with holding diuretics for a few days -was given IV albumin x 1 this admission -Restarted torsemide at lower dose of 40 mg po qAM as above -Discontinuing Aldactone permanently as above -follow daily weights, I/Os (6) Asthma: With wheezing now resolved after starting steroids -We will now discontinue IV Solu Medrol and switch to prednisone 40 mg daily tomorrow with plan to taper down -continue inhaled steroids -continue scheduled and prn nebs (7) Apnea, sleep: -Daughter brought in CPAP from home (8) Dementia, in, senility: Dementia/depression-at baseline Continue donepezil , Namenda and sertraline (9) Depression: Continue sertraline (10) Bacteremia due to Gram-positive bacteria: Continue on IV Dapto for previous Enterococcus bacteremia-stop date is 12/24 for a total of 6 weeks ID following as outpt -check CMP, CBC, ESR, CRP, CPK once weekly while on Dapto--> ESR>90, CRP 20, CPK 99 on 12/10 Had US-guided PIV-placed on 12/10-this is good for 4 weeks (11) Hematuria: Resolved -Have since restarted Eliquis -DCd [place] catheter many days ago (12) AMBER (acute kidney injury): Creatinine increased to 1.5 from 1.0 and now back to normal, likely secondary to overdiuresis. 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 She is sitting up in bed drinking a diet blaze odessa when I walked in. She asks me "what we are doing tonight?" Similar to all previous days I come to see her. She says she does not seem to be having any cough, she is eating today. Nursing reports she has copious urine output in her urine pure wick catheter. She did have a bowel movement today. Review of Systems Review of Systems: All systems reviewed & are unremarkable except as noted in HPI & below Physical Exam Constitutional: + obese; no acute distress Eyes: + anicteric sclerae ENMT: Ears: no external ear abnormality Neck: trachea midline, no thyromegaly Respiratory: not tachypneic Auscultation: no crackles, no rhonchi and no wheezes Cardiovascular: Rate/Rhythm: regular rate and + irregularly irregular Heart Sounds: no murmur Extremities: no edema Gastrointestinal (Abdomen): normal bowel sounds, soft, nontender, no hepatosplenomegaly Musculoskeletal: Extremities: extremities normal to inspection; no cyanosis and no clubbing Skin: no rashes, warm and dry Neurologic: moves all extremities and awake; no focal motor deficits Psychiatric: Orientation: alert, oriented to person and cooperative; + not oriented to place and + not oriented to time Results & Data Vital Signs (Past 12 Hours) Vital Signs Temp Pulse Pulse Pulse Resp BP Pulse Ox 12/15/18 16:10 88 12/15/18 14:58 36.5 C 88 20 133/82 94 12/15/18 13:33 83 20 94 12/15/18 08:16 36.5 C 76 20 157/109 H 94 12/15/18 06:51 84 20 96 Laboratory Results 12/15/18 12/15/18 12/15/18 Range/Units 20:14 16:35 11:48 Sodium (136-145) mmol/L Potassium (3.5-5.1) mmol/L Chloride (98-107) mmol/L Carbon Dioxide (21-32) mmol/L Anion Gap (3-11) BUN (7-18) mg/dl Creatinine (0.6-1.2) mg/dl Est Cr Clr Drug Dosing ml/min Est GFR ( Amer) Est GFR (Non-Af Amer) BUN/Creatinine Ratio (10-20) Glucose (70-99) mg/dl POC Glucose 128 H 146 H 164 H (70-99) Calcium (8.5-10.1) mg/dl Magnesium (1.8-2.4) mg/dl 12/15/18 12/15/18 Range/Units 07:57 05:04 Sodium 140 (136-145) mmol/L Potassium 4.5 (3.5-5.1) mmol/L Chloride 107 (98-107) mmol/L Carbon Dioxide 26 (21-32) mmol/L Anion Gap 7.0 (3-11) BUN 37 H (7-18) mg/dl Creatinine 0.91 D (0.6-1.2) mg/dl Est Cr Clr Drug Dosing 54.5 ml/min Est GFR ( Amer) 66.2 Est GFR (Non-Af Amer) 57.1 BUN/Creatinine Ratio 40.3 H (10-20) Glucose 142 H (70-99) mg/dl POC Glucose 136 H (70-99) Calcium 9.1 (8.5-10.1) mg/dl Magnesium 3.0 H (1.8-2.4) mg/dl PG Care Time/CCT Total # of Minutes Spent Total Time Spent with Patient: Total time spent is greater than 50% in short order fry cook rdination of care (as documented) at patient's floor/unit and/or counseling patient: (1) Diastolic congestive heart failure Heart failure chronicity: acute on chronic Qualified Code(s): I50.33 - Acute on chronic diastolic (congestive) heart failure (2) Hypertension Hypertension type: essential hypertension Qualified Code(s): I10 - Essential (primary) hypertension (3) Pneumonia Laterality: bilateral Lung location: unspecified part of lung Pneumonia type: due to unspecified organism Qualified Code(s): J18.9 - Pneumonia, unspecified organism
[2018-12-15] MEDS: DONEPEZIL HCL 10 MG TAB PO SCH (20:06)
[2018-12-15] MEDS: INSULIN GLARGINE SOLOSTAR 100 UNITS/ML 3 ML PEN SC SCH (20:18)
[2018-12-16] MEDS: IPRATROPIUM BROMIDE NEB SOLN 0.02% 2.5 ML VIAL INH SCH ×4 (01:07→18:55)
[2018-12-16] MEDS: LEVALBUTEROL HCL 0.63 MG/3 ML NEB NEB SCH ×4 (01:07→18:56)
[2018-12-16 06:34] LABS: BUN Creatinine Ratio 35.4 (10-20); Calcium 8.5 mg/dl (8.5-10.1); Creatinine Clr Calc Pharmacy 48.1 ml/min; Est GFR (Non-African American) 49.2; Potassium 4.3 mmol/L (3.5-5.1)
[2018-12-16] MEDS: BUDESONIDE 0.5 MG/2 ML VIAL (PULMICORT) INH SCH ×2 (07:07→18:55)
--- NOTE | 2018-12-16 07:36 | XRay Report ---
XR chest 1V portable CLINICAL HISTORY: 88 years-old Female presenting with Follow-up pneumonia. TECHNIQUE: Portable upright AP view of the chest was obtained. COMPARISON: 12/12/2018. FINDINGS: Left subclavian pacer with leads in the right atrium and right ventricular apex. Atherosclerosis of t he aortic arch. Cardiac silhouette moderately enlarged. Pulmonary vascular prominence and interlobula r septal prominence. Mildly low lung volumes. Side interval decrease in patchy upper lobe predominant opacities on the right. No new opacities. No large effusion or pneumothorax. Osseous structures norm al. Upper abdomen normal. IMPRESSION: 1. Slight interval decrease in right upper lung predominant infiltrates compatible with resolving pn eumonia. 2. Cardiomegaly with volume overload and mild congestive change. No branden pulmonary edema. Electronically signed by: Eugene Peralta M.D. 12/16/2018 7:35 AM
[2018-12-16] MEDS: MEMANTINE HCL 5 MG TAB PO SCH (07:41)
[2018-12-16] MEDS: predniSONE 20 MG TAB PO SCH (07:41)
[2018-12-16] MEDS: APIXABAN 5 MG TABLET PO SCH ×2 (07:42→20:22)
[2018-12-16] MEDS: METOPROLOL SUCC 50MG EXT REL TAB PO SCH (07:42)
[2018-12-16] MEDS: NYSTATIN SUSP 500,000 U/5 ML UDC PO SCH ×4 (07:42→20:21)
[2018-12-16] MEDS: POTASSIUM CHLORIDE 20 MEQ TABCR PO SCH ×2 (07:42→20:22)
[2018-12-16] MEDS: AMOXICILLIN/CLAVULANATE 875 MG TAB PO SCH ×2 (07:43→17:37)
[2018-12-16] MEDS: TORSEMIDE 10 MG TAB PO SCH (07:43)
[2018-12-16] MEDS: CALCIUM 600MG + VIT D 400 IU TAB PO SCH (07:43)
[2018-12-16] MEDS: SERTRALINE HCL 50 MG TABLET PO SCH (07:43)
[2018-12-16] MEDS: INSULIN ASPART 100 UNITS/ML 3 ML PEN SC SCH ×4 (08:43→21:32)
[2018-12-16] MEDS: DAPTOmycin 475 MG in SYRINGE 0 ML IV SCH (09:48)
[2018-12-16] MEDS: DOCUSATE SODIUM 100 MG CAP PO SCH (11:53)
--- NOTE | 2018-12-16 13:08 | Hospitalist Progress Note ---
Date of Service December 16, 2018 Assessment & Plan (1) Pneumonia: Admitted with worsening respiratory distress and confusion after vomiting episode. Infiltrates on CXR consistent with aspiration pneumonitis. - Consulted ID appreciated - Received Zosyn and then converted to Augmentin - End date: 12/20/2018 - Respiratory status greatly improved from admission. (2) AF (paroxysmal atrial fibrillation): She is known to go in and out of Afib quite frequently. Did have lower BPs with it and was transferred to PCU on amiodarone gtt on 12/08 which was then dcd by cardiology on 12/09. Converted again to paced rhythm on 12/09 AM and now back in and out of Afib since then.Rates continue to be much improved now in the 70s- 80s, continues in A. fib clinically, has since been removed from telemetry. - Continue apixaban for anticoagulation - Continue digoxin 0.125 mg once daily - Increased dose of Toprol XL to 200 mg daily (had been on 200mg daily at time of discharge 3 weeks ago but was reduced to 50 mg at the care home prior to admission) (3) Bacteremia due to Gram-positive bacteria: Continue on IV daptomycin for previous Enterococcus bacteremia - stop date is 12/24 for a total of 6 weeks. - ID following as outpt - Check CMP, CBC, ESR, CRP, CPK once weekly while on Dapto--> ESR>90, CRP 20, CPK 99 on 12/10 (4) Hypertension: BPs normal. - Continue Toprol now at 200 mg daily as above - Restarted torsemide at 40 mg once daily on 12/15 - her previous home dose was 60 mg twice daily and she was too dried out (5) Diastolic congestive heart failure: Acute on chronic diastolic CHF - now resolved. Baseline weight ~122 kg. Remains euvolemic, creatinine increased to 1.5 and now down to 0.9 with holding diuretics for a few days. - Restarted torsemide at lower dose of 40 mg po qAM as above (6) Urinary incontinence: [place] catheter placed while critically ill. - Developed hematuria on 12/10, likely secondary to [place] trauma while on Eliquis - now resolved (7) Asthma: With wheezing now resolved after starting steroids. - Initially on Solu-Medrol and switched to prednisone 40 mg daily with plan to taper down. - Continue inhaled steroids & DuoNebs PRN (8) Apnea, sleep: - Daughter brought in CPAP from home. (9) Dementia, in, senility: Dementia/depression - at baseline. - Continue donepezil , Namenda and sertraline (10) Depression: Continue sertraline (11) DVT prophylaxis: Amberly Subjective Reports that she is doing well this morning. No major concerns. She is AAOx2 for me, but thinks it is 2003. She is not sure why she is in the hospital, but denies shortness of breath or cough. Review of Systems Review of Systems: All systems reviewed & are unremarkable except as noted in HPI & below Physical Exam Constitutional: WD/WN, vitals as above Eyes: EOM intact bilaterally; no conjunctival abnormality ENMT: external ear and nose normal, oropharynx normal Neck: trachea midline, no thyromegaly normal visual inspection Respiratory: normal respiratory effort, lungs clear to auscultation no respiratory distress Cardiovascular: RRR, no murmur, no edema Gastrointestinal (Abdomen): Inspection/Auscultation: abdomen normal to inspection; abdomen not distended Musculoskeletal: no cyanosis or clubbing, extremities motor strength 5/5 Skin: no rashes, warm and dry Neurologic: moves all extremities and awake Psychiatric: Orientation: alert, oriented to person, oriented to place and cooperative; + not oriented to time Results & Data Vital Signs (Past 12 Hours) Vital Signs Temp Pulse Resp BP Pulse Ox 12/16/18 07:37 36.8 C 61 18 135/75 90 12/16/18 07:08 76 16 98 12/16/18 01:04 81 20 95 PG Care Time/CCT Total # of Minutes Spent Total Time Spent with Patient: Total time spent is greater than 50% in coordination of care (as documented) at patient's floor/unit and/or counseling patient: (1) Pneumonia Laterality: bilateral Lung location: unspecified part of lung Pneumonia type: due to unspecified organism Qualified Code(s): J18.9 - Pneumonia, unspecified organism (2) Hypertension Hypertension type: essential hypertension Qualified Code(s): I10 - Essential (primary) hypertension (3) Diastolic congestive heart failure Heart failure chronicity: acute on chronic Qualified Code(s): I50.33 - Acute on chronic diastolic (congestive) heart failure
[2018-12-16] MEDS: DIGOXIN 0.125 MG TAB PO SCH (17:37)
[2018-12-16] MEDS: DONEPEZIL HCL 10 MG TAB PO SCH (20:21)
[2018-12-16] MEDS: INSULIN GLARGINE SOLOSTAR 100 UNITS/ML 3 ML PEN SC SCH (21:32)
[2018-12-17] MEDS: LEVALBUTEROL HCL 0.63 MG/3 ML NEB NEB SCH ×2 (01:08→07:05)
[2018-12-17] MEDS: IPRATROPIUM BROMIDE NEB SOLN 0.02% 2.5 ML VIAL INH SCH ×2 (01:08→07:05)
[2018-12-17] MEDS: BUDESONIDE 0.5 MG/2 ML VIAL (PULMICORT) INH SCH (07:05)
[2018-12-17] MEDS: APIXABAN 5 MG TABLET PO SCH (09:38)
[2018-12-17] MEDS: POTASSIUM CHLORIDE 20 MEQ TABCR PO SCH (09:38)
[2018-12-17] MEDS: NYSTATIN SUSP 500,000 U/5 ML UDC PO SCH (09:38)
[2018-12-17] MEDS: METOPROLOL SUCC 50MG EXT REL TAB PO SCH (09:38)
[2018-12-17] MEDS: AMOXICILLIN/CLAVULANATE 875 MG TAB PO SCH (09:39)
[2018-12-17] MEDS: TORSEMIDE 10 MG TAB PO SCH (09:39)
[2018-12-17] MEDS: CALCIUM 600MG + VIT D 400 IU TAB PO SCH (09:39)
[2018-12-17] MEDS: predniSONE 20 MG TAB PO SCH (09:39)
[2018-12-17] MEDS: MEMANTINE HCL 5 MG TAB PO SCH (09:39)
[2018-12-17] MEDS: SERTRALINE HCL 50 MG TABLET PO SCH (09:39)
[2018-12-17] MEDS: INSULIN ASPART 100 UNITS/ML 3 ML PEN SC SCH ×2 (09:40→13:46)
[2018-12-17] MEDS: DOCUSATE SODIUM 100 MG CAP PO SCH (11:04)
[2018-12-17] MEDS: DAPTOmycin 475 MG in SYRINGE 0 ML IV SCH (11:19)
--- NOTE | 2018-12-17 12:57 | Discharge Summary ---
Date of Service December 17, 2018 Admission HPI Per Admitting Provider The patient is a 88-year-old female with a past medical history including recent hospitalization at [facility] from 11/10-11/16/2018, where she was diagnosed with enterococcus infection, and was then discharged to [facility] for continuance of IV daptomycin. The patient became hypoxic after vomiting post supper this evening, was brought to the emergency department, and chest x-ray early on showed a probable right sided aspiration pneumonia. Principal Diagnosis Aspiration pneumonia Discharge Exam Constitutional WD/WN, vitals as above Eyes EOM intact bilaterally; no conjunctival abnormality ENMT external ear and nose normal, oropharynx normal Neck trachea midline, no thyromegaly normal visual inspection Respiratory normal respiratory effort, lungs clear to auscultation no respiratory distress Cardiovascular RRR, no murmur, no edema Gastrointestinal (Abdomen) Inspection/Auscultation: abdomen normal to inspection; abdomen not distended Musculoskeletal no cyanosis or clubbing, extremities motor strength 5/5 Skin no rashes, warm and dry Neurologic moves all extremities and awake Psychiatric Orientation: alert, oriented to person, oriented to place and cooperative; + not oriented to time Discharge Data Allergies Allergy/AdvReac Type Severity Reaction Status Date / Time No Known Allergies Allergy Verified 12/06/18 23:08 Consultations 12/06/18 21:16 ED Decision to Admit Stat 12/07/18 00:22 Consult Case Management - Discharge Planning Routine 12/08/18 12:18 Consult Cardiology Routine 12/10/18 09:22 Consult Infectious Diseases Routine Ordered Studies 12/06/18 19:59 CT head/brain wo con Stat Hospital Course (1) Pneumonia: Admitted with worsening respiratory distress and confusion after vomiting episode. Infiltrates on CXR consistent with aspiration pneumonitis. - Consulted ID appreciated - Received Zosyn and then converted to Augmentin - End date: 12/20/2018 - Respiratory status greatly improved from admission. (2) AF (paroxysmal atrial fibrillation): She is known to go in and out of Afib quite frequently. Did have lower BPs with it and was transferred to PCU on amiodarone gtt on 12/08 which was then dcd by cardiology on 12/09. Converted again to paced rhythm on 12/09 AM and now back in and out of Afib since then.Rates continue to be much improved now in the 70s- 80s, continues in A. fib clinically, has since been removed from telemetry. - Continue apixaban for anticoagulation - Continue digoxin 0.125 mg once daily - Increased dose of Toprol XL to 200 mg daily (had been on 200mg daily at time of discharge 3 weeks ago but was reduced to 50 mg at the snf prior to admission) (3) Bacteremia due to Gram-positive bacteria: Continue on IV daptomycin for previous Enterococcus bacteremia - stop date is 12/24 for a total of 6 weeks. - ID following as outpt - Check CMP, CBC, ESR, CRP, CPK once weekly while on Dapto--> ESR>90, CRP 20, CPK 99 on 12/10 (4) Hypertension: BPs normal. - Continue Toprol now at 200 mg daily as above - Restarted torsemide at 40 mg once daily on 12/15 - her previous home dose was 60 mg twice daily and she was too dried out. Her baseline weight is probably around 121 kg, though she may have slightly more diuresis to offer. Recheck BMP in 3-4 days to be sure she is at baseline. (5) Diastolic congestive heart failure: Acute on chronic diastolic CHF - now resolved. Baseline weight ~122 kg. Remains euvolemic, creatinine increased to 1.5 and now down to 0.9 with holding diuretics for a few days. Baseline weight is probably ~121 kg. - Restarted torsemide at lower dose of 40 mg po qAM as above (6) Urinary incontinence: [place] catheter placed while critically ill. - Developed hematuria on 12/10, likely secondary to [place] trauma while on Eliquis - now resolved (7) Asthma: With wheezing now resolved after starting steroids. - Initially on Solu-Medrol and switched to prednisone 40 mg daily with plan to taper down. Taper steroids over the next 5-6 days. - Continue inhaled steroids & DuoNebs PRN (8) Apnea, sleep: - Daughter brought in CPAP from home. (9) Dementia, in, senility: Dementia/depression - at baseline. - Continue donepezil , Namenda and sertraline (10) Depression: Continue sertraline (11) DVT prophylaxis: Eliquis Total Time Total Time Spent Total Time Spent (In Minutes): 45 Discharge Plan Discharge Items Patient Disposition: Transfer Inpatient Rehab Fac Reason For Visit: ASPIRATION PNEUMONIA Discharge Diagnosis: Aspiration pneumonia Discharge Goals: Decrease discomfort, Improve function, Increase independence and Learn about illness Activity: Resume your previous activity Non-emergency contact: Primary Care Provider Call non-emergency contact if: you have any medication questions and your pain is not controlled Follow-up/Referrals: Kiara Lewis MD [Primary Care Provider] - Chris Cannon MD [Physician] - (Please see Dr. Cannon in 1-2 weeks.) Diet: Heart Healthy Addtl Provider Instructions: Ms. Stover was admitted for aspiration pneumonia. She was initially on IV antibiotics, then transitioned to Augmentin until 12/20/2018. She should be put on a fairly short steroid taper; likely prednisone 40mg PO daily x 2 more days, then 30mg x 2 days, then 20mg, then 10mg, then stop. By 12/17, she was on 3L of nasal cannula oxygen and this has been stable for quite some time and may be a baseline for her. She has been on IV daptomycin for a blood-stream infection from her prior admission, and this needs to go until 12/24/2018 last dose. There was some concern for diastolic CHF while here. She was aggressively diuresed with total fluid balance of -7L of fluid. Weight went down from 127 kg to 121 kg. This weight (121 kg) seems to be near baseline for her, though she probably has some small, slow diuresis possible. Her Cr was 1.0 on discharge which is her baseline. BMP could be check in 3-4 days. Her diuretics were lowered here, likely due to lower need from dietary intake. Prescriptions: New amoxicillin-pot clavulanate 875-125 mg Tablet 1 tab PO BIDM Qty: 1 RF: 0 prednisone 20 mg Tablet 40 mg PO QAM Qty: 1 RF: 0 Continued Eliquis 5 mg Tablet 5 mg PO BID Qty: 60 RF: 0 digoxin 125 mcg Tablet 0.125 mg PO DAILY@1600 Qty: 30 RF: 0 daptomycin 500 mg recon soln 500 mg IV DAILY Qty: 38 RF: 0 albuterol sulfate 2.5 mg /3 mL (0.083 %) Solution For Nebulization 2.5 mg INHALATION QID PRN (Reason: Shortness Of Breath Or Wheezing) RF: 0 calcium carbonate-vitamin D3 [Calcium 500 + D] 500 mg(1,250mg) -200 unit Tablet 1 tab PO DAILY RF: 0 ipratropium-albuterol 0.5 mg-3 mg(2.5 mg base)/3 mL Solution For Nebulization 3 ml INHALATION Q6 PRN (Reason: Shortness Of Breath Or Wheezing) RF: 0 loperamide 2 mg Capsule 2 mg PO Q4 PRN (Reason: Diarrhea) RF: 0 donepezil [Aricept] 10 mg tablet 10 mg PO HS RF: 0 diphenhydramine HCl [Banophen] 25 mg Tablet 25 mg PO Q6 PRN (Reason: itch/rash) RF: 0 budesonide [Pulmicort] 0.5 mg/2 mL suspension for nebulization 1 vial Inhalation BID RF: 0 nystatin 100,000 unit/gram Powder 1 applic TOPICAL TID PRN (Reason: Rash) RF: 0 sertraline [Zoloft] 50 mg tablet 50 mg PO DAILY RF: 0 memantine [Namenda] 5 mg tablet 5 mg PO DAILY RF: 0 Breo Ellipta 200-25 mcg/dose blister with device 1 puff Inhalation DAILY RF: 0 potassium chloride [Klor-Con M20] 20 mEq tablet,ER particles/crystals 20 meq PO BID Qty: 60 RF: 1 acetaminophen [Tylenol] 325 mg Tablet 650 mg PO Q6H PRN (Reason: Pain) RF: 0 docusate sodium 100 mg Tablet 100 mg PO DAILY RF: 0 Changed torsemide 20 mg tablet 40 mg PO DAILY Qty: 180 RF: 5 metoprolol succinate [Toprol XL] 50 mg tablet extended release 24 hr 200 mg PO DAILY Qty: 0 RF: 0 Discontinued spironolactone 25 mg tablet 25 mg PO DAILY Qty: 90 RF: 0 metolazone 2.5 mg Tablet 2.5 mg PO DAILY PRN (Reason: Wt gain>3lbs/day or >5lbs/week) RF: 0 diltiazem HCl 30 mg Tablet 30 mg PO TID RF: 0 Stand-Alone Forms: [facility] Discharge Orders: Discharge Order (Routine); Ordered 12/17/18 Ordered By: Jan Almeida Skilled Items Patient informed of condition?: Yes DNR: Yes Discharge Level of Care: Acute rehab Communicable Disease: No Discharge Prognosis: Improving Admission Data Admit Date/Time: 12/07/18 18:39 Attending Provider: Jan Almeida Admit Provider: Indra Fair Primary Care Provider: Kiara Lewis Other Providers: Quintin Bryan ; Lynette Thomas ; Jan Almeida Service: Medical
== END 2018-12-17 13:48 | DRG 177 ==
LOC: ED 19:29 → 2E 19:29 → SUATTDRO 22:27 → 2E 23:18 → SUATTDRO 12-07 18:39 → 2N 12-07 18:59 → 1E 12-08 10:17 → 2S 12-08 19:02 → 4W 12-13 13:13

== ENCOUNTER 2019-01-09 00:38 | Inpatient (IN) ==
[2019-01-09] MEDS ORDERED: METOPROLOL TARTRATE 1 MG/ML VIAL IV STA (01:28)
[2019-01-09 01:47] LABS: Basophils # (auto) 0.06 K/uL (0-0.2); Basophils % (auto) 0.8 %; Eosinophils # (auto) 0.46 K/uL (0-0.5); Eosinophils % (auto) 6.5 %; Hematocrit (blood only) 35.6 % (37-47); Hemoglobin 11.3 g/dL (12.0-16.0); Immature Granulocytes # (auto) 0.26 K/uL (0.00-0.02); Immature Granulocytes % (auto) 3.7 %; Lymphocytes # (auto) 1.55 K/uL (1.2-3.4); Mean Corpuscular Hemoglobin 30.9 pg (25-34); Mean Corpuscular Hgb Conc 31.7 g/dL (32-36); Mean Corpuscular Volume 97.3 fL (80-100); Mean Platelet Volume 9.2 fL (7.4-10.4); Monocytes # (auto) 0.94 K/uL (0.11-0.59); Monocytes % (auto) 13.3 %; Neutrophils # (auto) 3.79 K/uL (1.4-6.5); Neutrophils % (auto) 53.7 %; Platelet Count 253 K/uL (130-400); RDW Coefficient of Variation 16.4 % (11.5-14.5); RDW Standard Deviation 57.8 fL (36.4-46.3); Red Blood Count 3.66 M/uL (4.2-5.4); White Blood Count 7.06 K/uL (4.8-10.8)
[2019-01-09] MEDS ORDERED: SODIUM CHLORIDE 0.9% 1000ML 1,000 ML IV ONE (01:48)
[2019-01-09] MEDS ORDERED: FUROSEMIDE 40 MG/4 ML VIAL IV ONE (02:35)
[2019-01-09 03:16] LABS: BUN Creatinine Ratio 8.8 (10-20); Blood Urea Nitrogen 10 mg/dl (7-18); Calcium 8.6 mg/dl (8.5-10.1); Carbon Dioxide 30 mmol/L (21-32); Chloride 102 mmol/L (98-107); Creatinine Clr Calc Pharmacy 49.8 ml/min; Est GFR (African American) 52.1; Est GFR (Non-African American) 44.9; Glucose 125 mg/dl (70-99); NT Pro B Type Natriuretic Pept 3154 pg/ml (0-1800); Potassium 3.6 mmol/L (3.5-5.1); Sodium 139 mmol/L (136-145); Troponin I < 0.015 ng/ml (0-0.045)
--- NOTE | 2019-01-09 03:44 | History & Physical Report ---
Date of Service January 09, 2019 Assessment & Plan (1) Congestive heart failure: CHF exacerbation Admit to telemetry -Pt with dry MM, however peripheral edema and CXR suggest fluid overload Continue 40 mg IV Lasix daily; hold home torsemide Monitor I/O's and measure daily weights Monitor renal function Asthma/emphysema/wheeze -Duonebs q4h, convert to xopenex if HR not controlled -Cont home ICS Paroxysmal A. fib with RVR Currently rate controlled Monitor on telemetry PRN Lopressor Continue Xarelto Continue diltiazem, Toprol-XL Dementia/depression -Cont memantine, donepezil, sertraline HILARIO -Cont CPAP nightly Code: DNR/DNI Dispo: admit to tele DVTP: eliquis (2) Hypoxia: (3) A-fib: (4) Edema: (5) Apnea, sleep: (6) Hypertension: (7) Asthma: (8) Situational anxiety: (9) Diastolic congestive heart failure: (10) Alzheimers disease: (11) Depression: History of Present Illness Chief Complaint: CC: fall, dyspnea Primary Care Provider: [facility] Patient is a 88yo F PMH PAF (on xarelto), HTN, Severe dementia, depression, DCHF, emphysema, anxiety, tachybrady syndrome s/p pacemaker placement. HPI is provided by daughter, Debbi, who is a GI nurse. Patient is a resident at [facility]. She presents s/p unwitnessed fall; unknown if +LOC or if she hit her head. Daughter notes Desire has not been doing well since recent discharge on 12/17 for aspiration pneumonia. She notes increased peripheral edema, audible wheezing, and productive cough in the past week, and had set up a PCP appointment for her next week. On arrival to the emergency room she was found to be in A. fib with RVR. Chest x-ray revealed pulmonary edema. She was given 2 doses of Lopressor and upon my assessment her heart rate is controlled at 100 bpm. She was given 40 of IV Lasix and she is currently at 90% on 2 L nasal cannula. CBC and CMP were overall normal. CT head was reportedly normal however due to [facility] downtime this cannot be confirmed at time of dictation of this note. Allergies Allergy/AdvReac Type Severity Reaction Status Date / Time No Known Allergies Allergy Verified 01/09/19 03:30 Home Medications Home Medications Medication Instructions Recorded Confirmed Type budesonide [Pulmicort] 1 vial INHALATION BID 06/20/18 01/09/19 History donepezil [Aricept] 10 mg PO HS 06/20/18 01/09/19 History loperamide 2 mg PO Q4 PRN 06/20/18 01/09/19 History nystatin 1 applic TOPICAL TID PRN 06/20/18 01/09/19 History sertraline [Zoloft] 50 mg PO DAILY 06/20/18 01/09/19 History potassium chloride [Klor-Con M20] 20 meq PO BID #60 tab 06/24/18 01/09/19 Rx Eliquis 5 mg PO BID #60 tab 11/16/18 01/09/19 Rx digoxin 0.125 mg PO DAILY@1600 #30 tab 11/16/18 01/09/19 Rx docusate sodium 100 mg PO DAILY 11/19/18 01/09/19 History torsemide 40 mg PO DAILY #180 tab 12/17/18 01/09/19 Rx memantine 5 mg tablet 5 mg PO DAILY #90 tab 12/18/18 01/09/19 Rx metoprolol succinate ER 50 mg 150 mg PO DAILY #0 tab 12/30/18 01/09/19 Rx tablet,extended release 24 hr acetaminophen 500 mg capsule 500 mg PO Q4H PRN 01/03/19 01/09/19 History albuterol sulfate 0.63 mg INHALATION QID PRN 01/09/19 01/09/19 History calcium carbonate-vitamin D3 1 tab PO DAILY 01/09/19 01/09/19 History [Oyster Shell + D3] diphenhydramine HCl [Benadryl] 25 mg PO Q8H PRN 01/09/19 01/09/19 History fluticasone furoate-vilanterol 1 inh INHALATION DAILY 01/09/19 01/09/19 History [Breo Ellipta] metolazone 2.5 mg PO DAILY 01/09/19 01/09/19 History ondansetron HCl [Zofran] 4 mg PO Q4H PRN 01/09/19 01/09/19 History Past Med/Surg History Medical History Urinary incontinence (Chronic) Situational anxiety (Chronic) 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) Edema (Chronic) Diastolic dysfunction (Chronic) Diastolic congestive heart failure (Chronic) Depression (Chronic) Cardiac pacemaker (Chronic) AF (paroxysmal atrial fibrillation) (Chronic) Apnea, sleep (Chronic) Hypertension (Chronic) Alzheimers disease (Chronic) Asthma (Chronic) Hypokalemia (Resolved) Glaucoma High cholesterol Obesity Surgical History History of arthroscopic knee surgery History of eye surgery History of permanent cardiac pacemaker placement History of umbilical hernia repair Social History Preferred Language: Algerian Communication Ability: Effective Tube Sizer Operator Required: No Beliefs That Will Affect Care: None Current Living Situation: Prison Current Living Situation Comment: [facility] Other Information That Helps Us Care for You: No Feels Safe at Home: Yes Safety Concerns: Feels Safe At This Time Smoking Status: Smoker, status unknown Hx Alcohol Use: No Hx Substance Use: No Review of Systems Review of Systems: Unobtainable due to cognitive status Physical Exam Constitutional: WD/WN, vitals as above + morbidly obese; no acute distress, + uncomfortable and not in distress Eyes: PERRL, conjunctivae normal, anicteric sclerae ENMT: Mouth: + dry oral mucous membranes Neck: normal visual inspection Respiratory: + audible wheezes Auscultation: + diminished lung sounds Cardiovascular: Rate/Rhythm: regular rate and + irregularly irregular Extremities: + edema (2+ to shins bilaterally) Pacemaker in situ Gastrointestinal (Abdomen): normal bowel sounds, soft, nontender, no hepatosplenomegaly Neurologic: PERRL, EOMI, accommodation nl, no face palsy, no dysarthria Psychiatric: Orientation: alert and oriented to person; + not oriented to place and + not oriented to time Affect: + labile affect Results & Data Vital Signs (Past 12 Hours) Vital Signs Temp Pulse Resp BP Pulse Ox 01/09/19 01:50 126 H 103/75 01/09/19 00:44 98.4 F 126 H 20 103/75 92 Laboratory Results 01/09/19 01/09/19 Range/Units 01:39 01:39 WBC 7.06 (4.8-10.8) K/uL RBC 3.66 L (4.2-5.4) M/uL Hgb 11.3 L (12.0-16.0) g/dL Hct 35.6 L (37-47) % MCV 97.3 (80-100) fL MCH 30.9 (25-34) pg MCHC 31.7 L (32-36) g/dL RDW Std Deviation 57.8 H (36.4-46.3) fL RDW Coeff of [place] 16.4 H (11.5-14.5) % Plt Count 253 (130-400) K/uL MPV 9.2 (7.4-10.4) fL Immature Gran % (Auto) 3.7 % Neut % (Auto) 53.7 % Lymph % (Auto) 22.0 % [place] % (Auto) 13.3 % Eos % (Auto) 6.5 % Baso % (Auto) 0.8 % Immature Gran # (Auto) 0.26 H (0.00-0.02) K/uL Neut # (Auto) 3.79 (1.4-6.5) K/uL Lymph # (Auto) 1.55 (1.2-3.4) K/uL [place] # (Auto) 0.94 H (0.11-0.59) K/uL Eos # (Auto) 0.46 (0-0.5) K/uL Baso # (Auto) 0.06 (0-0.2) K/uL Sodium 139 (136-145) mmol/L Potassium 3.6 (3.5-5.1) mmol/L Chloride 102 (98-107) mmol/L Carbon Dioxide 30 (21-32) mmol/L Anion Gap 7.0 (3-11) BUN 10 (7-18) mg/dl Creatinine 1.11 (0.6-1.2) mg/dl Est Cr Clr Drug Dosing 49.8 ml/min Est GFR ( Amer) 52.1 Est GFR (Non-Af Amer) 44.9 BUN/Creatinine Ratio 8.8 L (10-20) Glucose 125 H (70-99) mg/dl Calcium 8.6 (8.5-10.1) mg/dl Magnesium 2.0 (1.8-2.4) mg/dl Troponin I < 0.015 (0-0.045) ng/ml NT-Pro-B Natriuret Pep 3154 H (0-1800) pg/ml Code Status & VTE Plan Code Status DNR/DNI VTE Prophylaxis Plan VTE Prophylaxis will be ordered: Yes Supervising Physician Co-Signing Physician Notes Patient seen and examined, chart reviewed, case discussed wt Dr. Marshall and I agree with her assessment and plan as documented above. Briefly, patient is an 88yo C female with history of PAF on anticoagulation with Xarelto, HTN, severe dementia, CHF presenting with SOB, cough and hypoxia. On arrival to the ER she was found to be in AF with RVR. She was administered Lopressor with good response. On physical exam she is afebrile, tachycardic, adequate saturation on 2L Gen: obese, patient resting comfortably, NAD. Does not wish to be in the hospital Skin: intact HEENT: NC/AT, PERRL, neck supple, difficult to assess for JVD secondary to body habitus Heart: +S1/S2, irregularly irregular, no m/r/g Lungs: diminished breath sounds bilaterally, patient somewhat uncooperative with exam Abd: obese, soft, NT/ND Ext: +edema 2+ to shins Assessment/Plan: 88yo C female with PAF on anticoagulation therapy, diastolic CHF presenting with cough/SOB/hypoxia -Admit to medical floor with telemetry. Lasix 40mg IV given in ER. Will monitor output and redose as necessary -I/Os, daily weights, low Na diet -Remainder of plan as above PG Care Time/CCT Total # of Minutes Spent Total Time Spent with Patient: Total time spent is greater than 50% in coordination of care (as documented) at patient's floor/unit and/or counseling patient: Resident Activity Tracking Resident Involvement: Resident Care Provided Care Provided: Adult Hospital Medicine (1) Diastolic congestive heart failure Heart failure chronicity: acute on chronic Qualified Code(s): I50.33 - Acute on chronic diastolic (congestive) heart failure (2) Congestive heart failure Heart failure chronicity: unspecified Heart failure type: unspecified Qualified Code(s): I50.9 - Heart failure, unspecified (3) A-fib Atrial fibrillation type: unspecified Qualified Code(s): I48.91 - Unspecified atrial fibrillation (4) Hypertension Hypertension type: essential hypertension Qualified Code(s): I10 - Essential (primary) hypertension
--- NOTE | 2019-01-09 04:39 | Emergency Department Note ---
Entered by Margarita Bowles acting as a scribe for Sumeet Peres MD ED Provider Note Name: Desire Stover Age: 88 F Arrives Via: Informant: Daughter and Record CC: Fall HPI: 88 female arrives for evaluation of a fall that occurred prior to arrival. The patient arrived through EMS who states that she fell from ground level in dementia unit and hit her head. EMS states that they did not observe any trauma to the head. The patient expresses that she does not feel any neck pain, bumps on her head. The patient had no medication prior to arrival. Daughter arrived and gave further info. Recent discharge from hospital and has been at shelter. Worsening leg swelling, cough, and increasing falls. No change in meds. Has been acting her normal self with no change in level of dementia. ROS: See above HPI for pertinent positives & negatives. A total of 10 systems reviewed and were otherwise negative. Past Medical History: See Below Past Surgical History: See below Family History: See below Social History: See below Home Medications: See below Allergies No Known Allergies Physical: Vitals: BP 103/75, P 126, R 20, O2 92% on RA , Temp 36.9 C Exam: GENERAL: Patient is angry, demented but otherwise in no acute distress. EYES: No scleral icterus, unremarkable pupils. ENT: Mucous membranes moist, no nasal congestion. NECK: No masses appreciated, no meningismus, trachea is midline. RESPIRATORY: No dyspnea. Crackles bilateral lung sounds. No wheeze, no rhonchi. CARDIOVASCULAR: Tachycardic and irregular. No murmurs, rubs, gallops appreci ated. GASTROINTESTINAL: Abdomen soft, non-tender, no peritonitis. Bowel sounds positive. No masses appreciated. BACK: No midline tenderness, no CVA tenderness EXTREMITIES: Normal motion all extremities, no cyanosis, 3+ edema bilateral lower legs. NEUROLOGIC: Alert and awake, answering no to almost everything, no acute motor or sensory deficits, no focal weakness, cranial nerves grossly intact. SKIN: No rash, no jaundice, no diaphoresis. ED Course: Prior Medical Record, Triage/Nursing Notes, Medications, Allergies reviewed by Me Vital Signs: reviewed and remarkable for tachy, mild hypoxia Labs: Reviewed and remarkable for BNP elevation, mild anemia Interventions: Saline Lock, Lopressor 5mg IV x 2, Lasix 40mg IV Imaging: X ray results are stated below per my interpretation: Chest: 1 view: increased vascular congestion from previous CXR consistent with pulmonary edema EKG: Per My Interpretation: Indication SHOB: Afib RVR 120 bpm without ischemia. QTC 469. Similar morphology Dec 07, 2018 Blood pressure: Normal. No Referral necessary Course: 0040: Past medical records reviewed. The patient was evaluated in room A10. A complete history and physical exam was performed. 0046: I discussed with daughter over the phone who should be in shortly to discuss patient's condition. 0108: The daughter has arrived and patient now has a junky cough, is tachycardic at 103 and has an O2 Sat of 88-90% RA. I discussed pros and cons of workup and the daughter wishes to proceed with further evaluations. The daughter notes patient has been falling multiple times since discharge last week. The daughter states cough is worsening with increased swelling of legs. 0210: The patient is at CAT scan. Discussed with daughter who is comfortable with hospitalization 0230: Daughter is comfortable with patient staying in hospital. The patient is somewhat hypoxic on RA. 0235: I reviewed the patient's case with Dr. Ramos, [facility] Hospitalist. She will evaluate the patient for further management. Consults: 0235: I reviewed the patient's case with Dr. Ramos, [facility] Hospitalist. She will evaluate the patient for further management. Disposition: Hospitalization Differentials: metabolic, infection, hypoglycemia, electrolyte abnormalities, cardiac sources, intracerebral event, toxicologic, neurologic, amongst other pathologies. Medical Decision Making: Chronically unwell 88 yr old female with recent hospitalization for pneumonia who arrives from shelter after fall. By exam tachy and in heart failure. CXR with congestion. EKG confirms Afib RVR. 2 Rounds Lopressor to get HR under control. Lasix given due to fluid overload. NC O2 needed for mild hypoxia. Labs otherwise looking OK. No evidence of ACS. On eliquis thus CT head done which was negative. No consistent with PE. Hospitalist consulted for further m anagement. This patient was seen during [facility] down-time and chart completed at later date/time. Please note that times of orders, medications, and testing as well as re-evaluations and consultations may not accurately reflect actual times they were placed/preformed. Impression: Atrial Fibrillation with rapid ventricular response Congestive heart Failure Hypoxia Accident due to mechanical fall without injury Critical Care Time: I have personally spent greater than 35 minutes of critical care time in the direct management of this patient. Congestive heart failure in setting of Afib RVR requiring 2 rounds IV lopressor and IV lasix. This was a life/limb threatening event. This includes time spent evaluating patient, direct bedside care, chart review, placing orders, interpretation of diagnostic studies, di scussion with consultants, patient, and family members, as well as other required patient management activities. This 35 minutes is in excess of all separately billable procedures. The scribe's documentation has been prepared under my direction and personally reviewed by me in its entirety. I confirm that the note above accurately reflects all work, treatment, procedures, and medical decision making performed by me. 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) Edema (Chronic) Diastolic dysfunction (Chronic) Diastolic congestive heart failure (Chronic) Depression (Chronic) Cardiac pacemaker (Chronic) AF (paroxysmal atrial fibrillation) (Chronic) Apnea, sleep (Chronic) Hypertension (Chronic) Alzheimers disease (Chronic) Asthma (Chronic) Hypokalemia (Resolved) Glaucoma High cholesterol Obesity Surgical History History of arthroscopic knee surgery History of eye surgery History of permanent cardiac pacemaker placement History of umbilical hernia repair Social History Preferred Language: Afghan Communication Ability: Impaired Tram Operator Required: No Beliefs That Will Affect Care: None Current Living Situation: Personal Care Facility [facility] Feels Safe at Home: Yes Smoking Status: Never smoker Hx Alcohol Use: No Hx Substance Use: No Results & Data Vital Signs Vital Signs - 24 hr 01/09/19 00:44 01/09/19 01:50 01/09/19 04:00 Temperature 36.9 C Temperature Source Oral Sepsis Recent Fever Within 48 Hours No Sepsis Action Taken by Nursing No Action Required Pulse Rate 126 H 126 H Pulse Rate [Apical] 107 H Respiratory Rate 20 18 Respiratory Effort / Characteristics Non-Labored Spontaneous Non-Labored Respiratory Depth Normal Normal Respiratory Pattern Regular Blood Pressure 103/75 103/75 Blood Pressure [Right Arm] 98/72 L Blood Pressure Mean 84 Blood Pressure Mean [Right Arm] 80 Blood Pressure Position [Right Arm] Lying Pulse Oximetry 92 98 Oxygen Delivery Method Room Air Nasal Cannula Oxygen Flow Rate 2 Home Medications Current Medication List: was personally reviewed by me Laboratory Data Attestation: I reviewed the patient's lab results. Result diagrams: 01/09/19 01:39 01/09/19 01:39 Lab Results 01/09/19 01/09/19 Range/Units 01:39 01:39 WBC 7.06 (4.8-10.8) K/uL RBC 3.66 L (4.2-5.4) M/uL Hgb 11.3 L (12.0-16.0) g/dL Hct 35.6 L (37-47) % MCV 97.3 (80-100) fL MCH 30.9 (25-34) pg MCHC 31.7 L (32-36) g/dL RDW Std Deviation 57.8 H (36.4-46.3) fL RDW Coeff of Keryr 16.4 H (11.5-14.5) % Plt Count 253 (130-400) K/uL MPV 9.2 (7.4-10.4) fL Immature Gran % (Auto) 3.7 % Neut % (Auto) 53.7 % Lymph % (Auto) 22.0 % [place] % (Auto) 13.3 % Eos % (Auto) 6.5 % Baso % (Auto) 0.8 % Immature Gran # (Auto) 0.26 H (0.00-0.02) K/uL Neut # (Auto) 3.79 (1.4-6.5) K/uL Lymph # (Auto) 1.55 (1.2-3.4) K/uL [place] # (Auto) 0.94 H (0.11-0.59) K/uL Eos # (Auto) 0.46 (0-0.5) K/uL Baso # (Auto) 0.06 (0-0.2) K/uL Sodium 139 (136-145) mmol/L Potassium 3.6 (3.5-5.1) mmol/L Chloride 102 (98-107) mmol/L Carbon Dioxide 30 (21-32) mmol/L Anion Gap 7.0 (3-11) BUN 10 (7-18) mg/dl Creatinine 1.11 (0.6-1.2) mg/dl Est Cr Clr Drug Dosing 49.8 ml/min Est GFR ( Amer) 52.1 Est GFR (Non-Af Amer) 44.9 BUN/Creatinine Ratio 8.8 L (10-20) Glucose 125 H (70-99) mg/dl Calcium 8.6 (8.5-10.1) mg/dl Magnesium 2.0 (1.8-2.4) mg/dl Troponin I < 0.015 (0-0.045) ng/ml NT-Pro-B Natriuret Pep 3154 H (0-1800) pg/ml Administered Medications Discontinued Medications Furosemide (Lasix) Confirm Administered Dose 40 mg IV .STK-MED ONE Stop: 01/09/19 02:36 Last Admin: 01/09/19 03:38 Dose: Not Given Documented by: [id number] Sodium Chloride (Nss 1000ml) 1,000 mls @ 999 mls/hr IV .Q1H1M ONE Stop: 01/09/19 02:48 Last Admin: 01/09/19 03:40 Dose: Not Given Documented by: [id number] Metoprolol Tartrate (Lopressor) 5 mg IV NOW STA Stop: 01/09/19 01:29 Last Admin: 01/09/19 01:50 Dose: 5 mg Documented by: [id number] Discharge Plan Visit Data Chief Complaint: Fall Stated Complaint: FALL ED Provider: Sumeet Peres Discharge Problem: Atrial fibrillation with rapid ventricular response, Accident due to mechanical fall without injury, Congestive heart failure, Hypoxia Forms Stand Alone Forms: My [facility] [place] [employer] Prescriptions Prescriptions: No Action memantine [Namenda] 5 mg tablet 5 mg PO DAILY Qty: 90 RF: 1 metoprolol succinate [Toprol XL] 50 mg tablet extended release 24 hr 150 mg PO DAILY Qty: 0 RF: 0 acetaminophen 500 mg capsule 500 mg PO Q4H PRN (Reason: Pain/fever) RF: 0 Eliquis 5 mg Tablet 5 mg PO BID Qty: 60 RF: 0 digoxin 125 mcg Tablet 0.125 mg PO DAILY@1600 Qty: 30 RF: 0 torsemide 20 mg tablet 40 mg PO DAILY Qty: 180 RF: 5 loperamide 2 mg Capsule 2 mg PO Q4 PRN (Reason: Diarrhea) RF: 0 donepezil [Aricept] 10 mg tablet 10 mg PO HS RF: 0 budesonide [Pulmicort] 0.5 mg/2 mL suspension for nebulization 1 vial Inhalation BID RF: 0 nystatin 100,000 unit/gram Powder 1 applic TOPICAL TID PRN (Reason: Rash) RF: 0 sertraline [Zoloft] 50 mg tablet 50 mg PO DAILY RF: 0 potassium chloride [Klor-Con M20] 20 mEq tablet,ER particles/crystals 20 meq PO BID Qty: 60 RF: 1 docusate sodium 100 mg Tablet 100 mg PO DAILY RF: 0 Breo Ellipta 200-25 mcg/dose Blister With Device 1 inh INHALATION DAILY RF: 0 calcium carbonate-vitamin D3 [Oyster Shell + D3] 250-125 mg-unit Tablet 1 tab PO DAILY RF: 0 metolazone 2.5 mg Tablet 2.5 mg PO DAILY RF: 0 ondansetron HCl [Zofran] 4 mg Tablet 4 mg PO Q4H PRN (Reason: Nausea) RF: 0 albuterol sulfate 0.63 mg/3 mL Solution For Nebulization 0.63 mg INHALATION QID PRN (Reason: Wheezing) RF: 0 diphenhydramine HCl [Benadryl] 25 mg Capsule 25 mg PO Q8H PRN (Reason: Itching) RF: 0 Referrals Referrals: [facility], [Primary Care Provider] - Discharge Problem: Accident due to mechanical fall without injury Qualifiers: Encounter type: initial encounter Qualified Code(s): W19.XXXA - Unspecified fall, initial encounter Congestive heart failure Qualifiers: Heart failure type: unspecified Heart failure chronicity: unspecified Qualified Code(s): I50.9 - Heart failure, unspecified The scribe's documentation has been prepared under my direction and personally reviewed by me in its entirety. I confirm that the note above accurately reflects all work, treatment, procedures, and medical decision making performed by me.
[2019-01-09] MEDS ORDERED: MAGNESIUM HYDROXIDE SUSP 30 ML UDC PO PRN (05:32)
[2019-01-09] MEDS ORDERED: POLYETHYLENE (MIRALAX) 17 GM PACK PO PRN (05:32)
[2019-01-09] MEDS ORDERED: METOPROLOL TARTRATE 1 MG/ML VIAL IV PRN (05:32)
[2019-01-09] MEDS ORDERED: ACETAMINOPHEN 325 MG TAB PO PRN (05:32)
[2019-01-09] MEDS ORDERED: ALUMINUM/MAGNESIUM SUSP 30 ML UDC PO PRN (05:32)
--- NOTE | 2019-01-09 06:33 | XRay Report ---
XR chest 1V portable HISTORY: 88 years-old Female Cough, hypoxia acute cough with hypoxia COMPARISON: Chest radiograph 12/16/2018, 12/12/2018 TECHNIQUE: Portable AP view of the chest FINDINGS: Cardiac silhouette is enlarged, unchanged. Calcified plaque of the thoracic aortic arch. Left subclav monet pacer is unchanged. Pulmonary vascular congestion. Progressive patchy opacities of the bilateral upper lobes and left greater the right lung bases. Background interstitial coarsening. Lungs are hypo inflated. Mild blunting of the costophrenic angles may reflect trace effusions. No pneumothorax. Heal ed remote fracture deformity about the left proximal humerus. Degenerative changes of the shoulders a nd spine. IMPRESSION: 1. Cardiomegaly with pulmonary vascular congestion and probable mild pulmonary edema. 2. Progressively worsened patchy bilateral airspace opacities may reflect a superimposed pneumonitis versus alveolar pulmonary edema. The above report was generated using voice recognition software. It may contain grammatical, syntax o r spelling errors. Electronically signed by: Kris Hahn M.D. 01/09/2019 6:32 AM
[2019-01-09] MEDS: ALBUT/IPRATROP 3MG/0.5MG NEB 3 ML VIAL NEB SCH ×4 (06:58→18:54)
[2019-01-09] MEDS: BUDESONIDE 0.5 MG/2 ML VIAL (PULMICORT) INH SCH ×2 (06:58→18:54)
--- NOTE | 2019-01-09 07:07 | CT Scan Report ---
HEAD CT NONCONTRAST CT DOSE: 663.41 mGy.cm HISTORY: fall on eliquis TECHNIQUE: Multiaxial CT images of the head were performed without the use of intravenous contrast. A utomated exposure control was utilized for this study. A dose lowering technique was utilized adheri ng to the principles of ALARA. Comparison: Head CT 12/06/2018. Findings: The paranasal sinuses and mastoid air cells are clear. The calvarium and skull base are int act. There is no mass, hematoma, midline shift, acute infarct. White matter hypodensity is nonspecifi c but suggestive of microvascular ischemic change. The ventricles and sulci demonstrate mild age-rela kerry involutional changes. 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 Impression: No significant change compared to the prior study. No acute intracranial abnormality. Electronically signed by: Jordon Espinal M.D. 01/09/2019 7:06 AM
[2019-01-09] MEDS ORDERED: INFLUENZA ADMINISTRATION CHARGE ONE (08:00)
[2019-01-09] MEDS ORDERED: INFLUENZA VIRUS QUAD VACCINE 0.5 ML SYR IM ONE (08:00)
[2019-01-09] MEDS ORDERED: PNEUMOCOCCAL POLYSACCHARIDES 25 MCG/0.5 ML VIAL/SYR IM ONE (08:00)
[2019-01-09] MEDS ORDERED: PNEUMOCOCCAL ADMINISTRATION CHARGE ONE (08:00)
[2019-01-09] MEDS ORDERED: TORSEMIDE 20 MG TAB PO SCH (09:00)
[2019-01-09] MEDS: FUROSEMIDE 40 MG in SYRINGE 0 ML IV SCH (09:06)
[2019-01-09] MEDS: SERTRALINE HCL 50 MG TABLET PO SCH (09:06)
[2019-01-09] MEDS: MEMANTINE HCL 5 MG TAB PO SCH (09:06)
[2019-01-09] MEDS: METOPROLOL SUCC 50MG EXT REL TAB PO SCH (09:06)
[2019-01-09] MEDS: DOCUSATE SODIUM 100 MG CAP PO SCH (09:06)
[2019-01-09] MEDS: POTASSIUM CHLORIDE 20 MEQ TABCR PO SCH ×2 (09:06→20:59)
[2019-01-09] MEDS: APIXABAN 5 MG TABLET PO SCH ×2 (09:06→20:58)
[2019-01-09] MEDS ORDERED: DIGOXIN 0.25 MG TAB PO ONE (16:15)
--- NOTE | 2019-01-09 16:27 | Hospitalist Progress Note ---
Date of Service January 09, 2019 Assessment & Plan (1) Congestive heart failure: Appears that the cause of her hypoxia is acute on chronic diastolic CHF. Given the erraticness of her rates, and the fact that it appears she normally does not feel her atrial fibrillation, it seems most likely diastolic failure predominantly rate related. Her blood pressures being somewhat low is precluding more aggressive diuresis with bolus dosing of Lasix, although once we have more predictable hemodynamics a Lasix drip would likely be helpful. We also need to affect better rate control, and will be utilizing additional digoxin, and asking for assistance from cardiology (see below). Fortunately she appears comfortable, in no distress. (2) Hypoxia: Appears to be all due to her diastolic CHF, the concern of whether or not she aspirated again, or had other recurrent pneumonias, was entertained. However, with her CRP and procalcitonin appearing so reassuring, no fever, no white count elevation, exam consistent with CHF and symmetric, and x-ray more consistent with CHF than infiltrate, it is extremely unlikely that there is pneumonia at play. (3) Atrial fibrillation with rapid ventricular response: Somewhat difficult situation due to her diastolic failure and lower and blood pressures. She will be given metoprolol this morning, rates are still somewhat fast and erratic. Digoxin level a month ago was 1.8, providing some margin of error to increase dosingthis afternoon will give her 0.25 instead of 0.125. Will also ask cardiology for assistance given her blood pressures being somewhat low and her rates been quite erratic. I suspect diastolic related CHF from her A. fib is probably the biggest reason for her hypoxia. (4) Aspiration pneumonia: This appears to have resolved. She is showing no swallowing difficulty today (5) Hypertension: Blood pressure somewhat low right now, other than what needs to be done for rate control and diuresis, we will hold antihypertensives (6) DVT prophylaxis: Anticoagulated for her atrial fibrillationEliquis (7) Discharge planning issues: She comes from [facility], I suspect when she is doing better she will be able to go back to [facility] as well. Subjective Very little if any meaningful HPI or review of systems obtainable. Patient herself is sitting in bed eating appearing happy and in no distress. She denies any shortness of breath, she denies any chest pain or pressure. Generally denies any symptoms whatsoever. Review of Systems Review of Systems: Unobtainable due to cognitive status Physical Exam Physical Exam: She is awake and alert pleasant no distress. HEENT normocephalic atraumatic mucous membranes are moist. Cardio is irregularly irregular and somewhat tachycardic, distant but no rubs murmurs gallops. Lungs show faint scattered rales more prevalent at the bases, no accessory muscle use, no rales or wheezes good effort. Extremities show no cyanosis. Neuro shows no focal deficits. Results & Data Vital Signs (Past 12 Hours) Vital Signs Temp Pulse Pulse Resp BP Pulse Ox 01/09/19 15:50 103 H 01/09/19 15:44 109 H 20 94 01/09/19 15:15 98.2 F 101 H 22 83/67 L 95 01/09/19 11:34 97.5 F L 106 H 24 78/53 L 92 01/09/19 10:50 90 20 95 01/09/19 07:52 115 H 01/09/19 07:30 97.5 F L 93 H 22 119/70 95 01/09/19 07:01 96 H 20 96 01/09/19 05:28 98.2 F 110 H 22 95 PG Care Time/CCT Total # of Minutes Spent Total Time Spent with Patient: Total time spent is greater than 50% in coordination of care (as documented) at patient's floor/unit and/or counseling patient: (1) Congestive heart failure Heart failure chronicity: unspecified Heart failure type: unspecified Qualified Code(s): I50.9 - Heart failure, unspecified (2) Hypertension Hypertension type: essential hypertension Qualified Code(s): I10 - Essential (primary) hypertension
[2019-01-09] MEDS ORDERED: dilTIAZem HCL 125 MG in DEXTROSE 5% 100 ML IV SCH (18:00)
[2019-01-09] MEDS ORDERED: AMIODARONE IV BOLUS / DRIP IV STA (20:35)
[2019-01-09] MEDS: DONEPEZIL HCL 10 MG TAB PO SCH (20:58)
[2019-01-09] MEDS ORDERED: AMIODARONE / D5W 360 MG/200 ML BAG IV SCH (21:00)
[2019-01-09] MEDS ORDERED: AMIODARONE / D5W 150 MG/100 ML BAG IV ONE (21:00)
[2019-01-09] MEDS: MICONAZOLE NITRATE POWDER 43 GM EXT SCH (21:03)
[2019-01-10] MEDS: AMIODARONE / D5W 360 MG/200 ML BAG IV SCH ×2 (02:36→15:27)
[2019-01-10 06:54] LABS: BUN Creatinine Ratio 11.8 (10-20); Creatinine Clr Calc Pharmacy 67.5 ml/min; Est GFR (African American) 75.1; Est GFR (Non-African American) 64.8; Potassium 3.3 mmol/L (3.5-5.1)
[2019-01-10] MEDS: BUDESONIDE 0.5 MG/2 ML VIAL (PULMICORT) INH SCH ×2 (06:56→19:10)
[2019-01-10] MEDS: ALBUT/IPRATROP 3MG/0.5MG NEB 3 ML VIAL NEB SCH ×4 (06:56→19:10)
[2019-01-10] MEDS: MICONAZOLE NITRATE POWDER 43 GM EXT SCH ×2 (09:23→20:33)
[2019-01-10] MEDS: DOCUSATE SODIUM 100 MG CAP PO SCH (09:23)
[2019-01-10] MEDS: MEMANTINE HCL 5 MG TAB PO SCH (09:25)
[2019-01-10] MEDS: POTASSIUM CHLORIDE 20 MEQ TABCR PO SCH ×2 (09:25→20:33)
[2019-01-10] MEDS: FUROSEMIDE 40 MG in SYRINGE 0 ML IV SCH (09:25)
[2019-01-10] MEDS: METOPROLOL SUCC 50MG EXT REL TAB PO SCH ×3 (09:25→10:50)
--- NOTE | 2019-01-10 09:25 | Cardiology Consultation ---
Date of Consultation January 10, 2019 Assessment & Plan (1) AF (paroxysmal atrial fibrillation): She has been in atrial fibrillation now for nearly a month. This is likely permanent at this point. At the time of her discharge she appeared to have good rate control based on her device interrogation and recorded rates at that time. Why her rates were higher the time of admission is unclear but may be responsive to some decompensation in her diastolic heart failure. Perhaps with an element of volume overload her overall rates are higher. She is not appear to tolerate a diltiazem infusion due to hypotension. I agree with increasing her metoprolol succinate. She is currently on an amiodarone infusion which could be employed long-term but I do not think will be necessary. I suspect that once we achieve a better volume status her heart rates or returned back to normal. She should continue systemic anticoagulation indefinitely (2) Diastolic congestive heart failure: Her volume status is difficult to ascertain but her weight appears to be 7 kg higher than it was the time of her discharge earlier this month. 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 I would agree with continued diuresis. Hopefully as her volume status improves we will see some improvement in her heart racing can discontinue her amiodarone. (3) Cardiac pacemaker: Normal function. I performed a device interrogation which did reveal essentially permanent atrial fibrillation. Overall ventricular rates are certainly higher over the past few days. History of Present Illness Reason for Consultation: Atrial fibrillation, pulmonary edema Requesting Physician: Gloria Attending Physician: Pedro Lind DO History of Present Illness The patient is an 88-year-old woman with severe dementia who also suffers from paroxysmal atrial fibrillation and occasional diastolic heart failure. She was recently discharged from our facility after an extended admission for presumed aspiration pneumonia. She was recently discharged from rehab facility back to her nursing residence. However, yesterday she was noted to have suffered a fall and brought to our medical center for an evaluation. There is not appear to be any overt trauma. The mechanism of the fall was unclear. Patient however was noted to have significant lower extremity edema and her daughter reported worsening coughing lately. She is therefore admitted for treatment of presumed pulmonary edema and diastolic heart failure. The patient cannot provide any meaningful history in this respect. This morning she did not report any breathing difficulty. She is unaware of a cough. She is not describe any pain. She claims to live with her parents at their residence in [place]. Allergies Allergy/AdvReac Type Severity Reaction Status Date / Time No Known Allergies Allergy Verified 01/09/19 03:30 Home Medications Home Medications Medication Instructions Recorded Confirmed Type budesonide [Pulmicort] 1 vial INHALATION BID 06/20/18 01/09/19 History donepezil [Aricept] 10 mg PO HS 06/20/18 01/09/19 History loperamide 2 mg PO Q4 PRN 06/20/18 01/09/19 History nystatin 1 applic TOPICAL TID PRN 06/20/18 01/09/19 History sertraline [Zoloft] 50 mg PO DAILY 06/20/18 01/09/19 History potassium chloride [Klor-Con M20] 20 meq PO BID #60 tab 06/24/18 01/09/19 Rx Eliquis 5 mg PO BID #60 tab 11/16/18 01/09/19 Rx digoxin 0.125 mg PO DAILY@1600 #30 tab 11/16/18 01/09/19 Rx docusate sodium 100 mg PO DAILY 11/19/18 01/09/19 History torsemide 40 mg PO DAILY #180 tab 12/17/18 01/09/19 Rx memantine 5 mg tablet 5 mg PO DAILY #90 tab 12/18/18 01/09/19 Rx metoprolol succinate ER 50 mg 150 mg PO DAILY #0 tab 12/30/18 01/09/19 Rx tablet,extended release 24 hr acetaminophen 500 mg capsule 500 mg PO Q4H PRN 01/03/19 01/09/19 History albuterol sulfate 0.63 mg INHALATION QID PRN 01/09/19 01/09/19 History calcium carbonate-vitamin D3 1 tab PO DAILY 01/09/19 01/09/19 History [Oyster Shell + D3] diphenhydramine HCl [Benadryl] 25 mg PO Q8H PRN 01/09/19 01/09/19 History fluticasone furoate-vilanterol 1 inh INHALATION DAILY 01/09/19 01/09/19 History [Breo Ellipta] metolazone 2.5 mg PO DAILY 01/09/19 01/09/19 History ondansetron HCl [Zofran] 4 mg PO Q4H PRN 01/09/19 01/09/19 History Patient History Medical History Urinary incontinence (Chronic) Situational anxiety (Chronic) 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) Edema (Chronic) Diastolic dysfunction (Chronic) Diastolic congestive heart failure (Chronic) Depression (Chronic) Cardiac pacemaker (Chronic) AF (paroxysmal atrial fibrillation) (Chronic) Apnea, sleep (Chronic) Hypertension (Chronic) Alzheimers disease (Chronic) Asthma (Chronic) Hypokalemia (Resolved) Glaucoma High cholesterol Obesity Surgical History History of arthroscopic knee surgery History of eye surgery History of permanent cardiac pacemaker placement History of umbilical hernia repair Social History Preferred Language: Slovak Communication Ability: Effective 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 She followed commands. HEENT: Sclerae are anicteric. Pupils are equal and reactive to light and accommodation. Extraocular movements were intact. Neuro: Cranial nerves intact Neck: Examination of the submandibular region did not reveal any significant lymphadenopathy. Carotids are palpable bilaterally and free of bruits on auscultation. There was no evidence of jugular venous distention. The thyroid was not enlarged. Lungs: Normal respiratory effort. Occasional crackles at the bases bilaterally. No expiratory wheezing. Cardiac: The rhythm was irregular. S1 and S2 were normal. There are no murmurs on examination. The PMI was not markedly displaced on palpation. Abdomen: The abdomen was soft and nontender. Obese Extremities: Patient has bilateral radial pulses that are equal in intensity. There is no evidence cyanosis or clubbing. Mild bilateral lower extremity edema. Skin: There are no rashes noted on examination today. Results & Data Vital Signs (Past 12 Hours) Vital Signs Temp Pulse Pulse Resp BP Pulse Ox 01/10/19 07:08 36.6 C 104 H 16 102/69 97 01/10/19 07:00 91 H 20 97 01/10/19 03:43 36.9 C 85 16 121/71 97 01/09/19 23:03 37.6 C H 104 H 19 136/92 96 01/09/19 22:10 117 H 117/75 01/09/19 21:48 87 18 97 01/09/19 21:46 96 H 107/73 Laboratory Results Abnormal Lab Results 01/09/19 01/10/19 01/10/19 08:21 05:44 05:44 Sodium 139 Potassium 3.3 L Chloride 101 Carbon Dioxide 31 Anion Gap 7.0 BUN 10 Creatinine 0.82 Est Cr Clr Drug Dosing 67.5 Est GFR ( Amer) 75.1 Est GFR (Non-Af Amer) 64.8 BUN/Creatinine Ratio 11.8 Glucose 108 H Calcium 8.0 L Procalcitonin < 0.05 Digoxin 1.1 Diagnostic Findings Echocardiogram performed in October 2018 revealed stage II diastolic dysfunction. Normal LV systolic function. No valvular disease. PG Care Time/CCT Total # of Minutes Spent Total Time Spent with Patient: Total time spent is greater than 50% in coordination of care (as documented) at patient's floor/unit and/or counseling patient: (1) Diastolic congestive heart failure Heart failure chronicity: acute on chronic Qualified Code(s): I50.33 - Acute on chronic diastolic (congestive) heart failure
[2019-01-10] MEDS: SERTRALINE HCL 50 MG TABLET PO SCH (09:26)
[2019-01-10] MEDS: APIXABAN 5 MG TABLET PO SCH ×2 (09:26→20:34)
[2019-01-10] MEDS: DIGOXIN 0.125 MG TAB PO SCH (16:06)
--- NOTE | 2019-01-10 16:31 | Hospitalist Progress Note ---
Date of Service January 10, 2019 Assessment & Plan (1) Congestive heart failure: acute on chronic HF with preserved EF likely due to afib with RVR however, cardiology also feels that rates will be better if volume status is corrected, both are related continue Lasix 40mg IV daily daily weights, I/Os are not showing much in way of negative fluid balance (2) Hypoxia: Appears to be all due to her diastolic CHF CRP and procalcitonin low so doubt pneumonia (3) A-fib: rates difficult to control but better today, in 80-90 range on Amiodarone on amiodarone drip, Digoxin and metoprolol should make every effort to use the metoprolol even if BP in the 90's systolic anticoagulated Dr. Cannon following (4) Edema: (5) Apnea, sleep: (6) Hypertension: Blood pressure somewhat low right now, other than what needs to be done for rate control and diuresis, we will hold antihypertensives (7) Asthma: (8) Situational anxiety: (9) Diastolic congestive heart failure: (10) Alzheimers disease: (11) Depression: (12) Acute and chronic respiratory failure: Subjective patient reports feeling a little better today, breathing easier rates better on the amiodarone drip, in the 80-[address] Cannon, he would like her to get metoprolol if possible, held this AM due to BP in the 90's systolic she was able to receive her Lasix 40mg IV reviewed labs, reviewed I/Os Review of Systems Review of Systems: Unobtainable due to cognitive status Physical Exam Constitutional: WD/WN, vitals as above + overweight Eyes: PERRL, conjunctivae normal, anicteric sclerae ENMT: external ear and nose normal, oropharynx normal Neck: trachea midline, no thyromegaly Respiratory: normal respiratory effort, lungs clear to auscultation Cardiovascular: Rate/Rhythm: regular rate and + irregularly irregular Heart Sounds: normal S1 and normal S2; no murmur Extremities: normal capillary refill and + edema Gastrointestinal (Abdomen): normal bowel sounds, soft, nontender, no hepatosplenomegaly Musculoskeletal: no cyanosis or clubbing, extremities motor strength 5/5 Skin: no rashes, warm and dry Neurologic: patellar DTR's 2+ bilat, sensation intact and PERRL, EOMI, accommodation nl, no face palsy, no dysarthria Psychiatric: Orientation: alert, oriented to person, oriented to place and cooperative; + not oriented to time Lymphatic: no cervical or axillary lymphadenopathy Results & Data Vital Signs (Past 12 Hours) Vital Signs Temp Pulse Pulse Resp BP Pulse Ox 01/10/19 15:23 36.4 C L 95 H 20 112/61 100 01/10/19 15:10 94 H 20 96 01/10/19 11:08 89 20 96 01/10/19 10:54 36.5 C 83 20 96/50 L 94 01/10/19 08:00 88 01/10/19 07:08 36.6 C 104 H 16 102/69 97 01/10/19 07:00 91 H 20 97 Laboratory Results Laboratory Results - last 24 hr 01/10/19 01/10/19 05:44 05:44 Sodium 139 Potassium 3.3 L Chloride 101 Carbon Dioxide 31 Anion Gap 7.0 BUN 10 Creatinine 0.82 Est Cr Clr Drug Dosing 67.5 Est GFR ( Amer) 75.1 Est GFR (Non-Af Amer) 64.8 BUN/Creatinine Ratio 11.8 Glucose 108 H Calcium 8.0 L Digoxin 1.1 Medications Administered Current Inpatient Medications Acetaminophen (Tylenol) 650 mg PO Q4H PRN PRN Reason: Pain or Fever Stop: 02/08/19 05:31 Al Hydrox/Mg Hydrox/Simethicone (Maalox) 15 ml PO Q4H PRN PRN Reason: Dyspepsia Stop: 02/08/19 05:31 Albuterol (Duoneb) 3 ml NEB QIDR [facility] Stop: 02/08/19 06:59 Last Admin: 01/10/19 19:10 Dose: 3 ml Documented by: Apixaban (Eliquis) 5 mg PO BID [facility] Stop: 02/08/19 08:59 Last Admin: 01/10/19 20:34 Dose: 5 mg Documented by: Budesonide (Pulmicort Respules) 0.5 mg INH BIDR [facility] Stop: 02/08/19 06:59 Last Admin: 01/10/19 19:10 Dose: 0.5 mg Documented by: Digoxin (Lanoxin) 0.125 mg PO DAILY@1600 [facility] Stop: 02/08/19 15:59 Last Admin: 01/10/19 16:06 Dose: 0.125 mg Documented by: Docusate Sodium (Colace) 100 mg PO DAILY [facility] Stop: 02/08/19 08:59 Last Admin: 01/10/19 09:23 Dose: Not Given Documented by: Donepezil HCl (Aricept) 10 mg PO HS [facility] Stop: 02/08/19 20:59 Last Admin: 01/10/19 20:34 Dose: 10 mg Documented by: Furosemide 40 mg/ Syringe 4 mls @ 4 mls/min IV QAM [facility]YA Stop: 02/08/19 08:59 Last Admin: 01/10/19 09:25 Dose: 4 mls/min Documented by: Amiodarone HCl/Dextrose (Nexterone / D5w) 360 mg in 200 mls @ 16.667 mls/hr IV .Q12H [facility]YA Stop: 02/09/19 02:59 Last Infusion: 01/10/19 19:18 Dose: 0.5 mg/min, 16.7 mls/hr Documented by: Magnesium Hydroxide (Milk Of Magnesia) 30 ml PO Q12H PRN PRN Reason: Constipation Stop: 02/08/19 05:31 Memantine (Namenda) 5 mg PO DAILY [facility] Stop: 02/08/19 08:59 Last Admin: 01/10/19 09:25 Dose: 5 mg Documented by: Metoprolol Succinate (Toprol Xl) 200 mg PO DAILY [facility] Stop: 02/08/19 08:59 Last Admin: 01/10/19 10:50 Dose: Not Given Documented by: Metoprolol Tartrate (Lopressor) 5 mg IV Q4 PRN PRN Reason: Tachycardia Stop: 02/08/19 05:31 Miconazole Nitrate (Desenex) 1 appln EXT BID [facility] Stop: 02/08/19 20:59 Last Admin: 01/10/19 20:33 Dose: 1 appln Documented by: Polyethylene Glycol (Miralax Powder Packet) 17 gm PO DAILY PRN PRN Reason: Constipation Stop: 02/08/19 05:31 Potassium Chloride (Klor-Con M20) 20 meq PO BID [facility] Stop: 02/08/19 08:59 Last Admin: 01/10/19 20:33 Dose: 20 meq Documented by: Sertraline HCl (Zoloft) 50 mg PO DAILY [facility] Stop: 10/26/19 08:59 Last Admin: 01/10/19 09:26 Dose: 50 mg Documented by: PG Care Time/CCT Total # of Minutes Spent Total Time Spent with Patient: Total time spent is greater than 50% in coordination of care (as documented) at patient's floor/unit and/or counseling patient: (1) Diastolic congestive heart failure Heart failure chronicity: acute on chronic Qualified Code(s): I50.33 - Acute on chronic diastolic (congestive) heart failure (2) Congestive heart failure Heart failure chronicity: unspecified Heart failure type: unspecified Qualified Code(s): I50.9 - Heart failure, unspecified (3) A-fib Atrial fibrillation type: unspecified Qualified Code(s): I48.91 - Unspecified atrial fibrillation (4) Hypertension Hypertension type: essential hypertension Qualified Code(s): I10 - Essential (primary) hypertension
[2019-01-10] MEDS: DONEPEZIL HCL 10 MG TAB PO SCH (20:34)
[2019-01-11] MEDS: AMIODARONE / D5W 360 MG/200 ML BAG IV SCH ×2 (03:55→15:13)
[2019-01-11] MEDS: BUDESONIDE 0.5 MG/2 ML VIAL (PULMICORT) INH SCH ×2 (07:10→19:17)
[2019-01-11] MEDS: ALBUT/IPRATROP 3MG/0.5MG NEB 3 ML VIAL NEB SCH ×4 (07:11→19:17)
[2019-01-11] MEDS: POTASSIUM CHLORIDE 20 MEQ TABCR PO SCH ×3 (08:13→21:16)
[2019-01-11] MEDS: SERTRALINE HCL 50 MG TABLET PO SCH (08:13)
[2019-01-11] MEDS: DOCUSATE SODIUM 100 MG CAP PO SCH (08:13)
[2019-01-11] MEDS: APIXABAN 5 MG TABLET PO SCH ×2 (08:13→21:15)
[2019-01-11] MEDS: FUROSEMIDE 40 MG in SYRINGE 0 ML IV SCH (08:13)
[2019-01-11] MEDS: MEMANTINE HCL 5 MG TAB PO SCH (08:13)
[2019-01-11] MEDS: METOPROLOL SUCC 50MG EXT REL TAB PO SCH (08:13)
[2019-01-11] MEDS: MICONAZOLE NITRATE POWDER 43 GM EXT SCH ×2 (08:14→21:13)
[2019-01-11 10:26] LABS: Hematocrit (blood only) 34.9 % (37-47)
[2019-01-11 10:27] LABS: BUN Creatinine Ratio 11.7 (10-20); Calcium 8.3 mg/dl (8.5-10.1); Creatinine Clr Calc Pharmacy 73.7 ml/min; Est GFR (African American) 83.7; Est GFR (Non-African American) 72.2
[2019-01-11] MEDS ORDERED: SODIUM CHLORIDE 0.65% NA SOLN 45 ML (OCEAN) PRN (14:36)
[2019-01-11] MEDS: DIGOXIN 0.125 MG TAB PO SCH (15:18)
[2019-01-11] MEDS: MUPIROCIN 2% OINT 22 GM TUBE EXT SCH ×2 (17:10→21:14)
--- NOTE | 2019-01-11 20:37 | Hospitalist Progress Note ---
Date of Service January 11, 2019 Assessment & Plan (1) Diastolic congestive heart failure: acute/chronic. likely exacerbation by rapid a.fib. continue IV lasix. continue amiodarone infusion. daily weights, I/O's, etc. dry weight ~121kg. continue beta marquise. (2) Acute and chronic respiratory failure: on 3 L NC continuously outside hospital (3) A-fib: remains on amiodarone drip, Digoxin and metoprolol continue apixaban 5mg bId for anticoagulation cardiology, Dr. Cannon, has made orozco recommendations for her care; appreciate his assistance rates overall stable overnight (4) Cardiac pacemaker: recent interrogation with good function (5) Apnea, sleep: cont night-time BIPAP (6) Hypertension: BPs controlled; transient hypotension at times. Follow BPs carefully. (7) Asthma: wheezing on exam - suspect it is "Cardiac" wheezing (ie wheezes due to pulm edema). was recently treated for aspiration pneumonia and asthma flare earlier this month and had been on steroid taper. defer on such. treat CHF. (8) Situational anxiety: cont SSRI (9) Alzheimers disease: advanced cont namenda cont aricept (10) Depression: SSRI (11) Morbid obesity with BMI of 45.0-49.9, adult: BMI 45.5 (12) Hypokalemia: replace repeat BMP am (13) DVT prophylaxis: apixaban BID PT, OT consults requested for dried blood in nose -- saline drops; bactroban to both nares BID Subjective patient sleeping upon my arrival she easily awoke when I called her name she denied any specific complaints when I told her she still had fluid in her lungs she said "oh really?" denies any specific complaints tele overnight - a.fib or paced rhythm Review of Systems Review of Systems: Unobtainable due to cognitive status Physical Exam Constitutional: + morbidly obese and + altered mental status; no acute distress ENMT: Nose: + turbinate abnormality (dried blood b/l nares ) Respiratory: Auscultation: + crackles (bases) and + wheezes (end-expiratory ) Cardiovascular: Rate/Rhythm: regular rate and + irregularly irregular Heart Sounds: normal S1 and normal S2 Vessels: posterior tibial pulses present and dorsalis pedis pulses present; no JVD (difficult to assess because of large neck ) Extremities: + edema Gastrointestinal (Abdomen): normal bowel sounds, soft, nontender, no hepatosplenomegaly Psychiatric: Orientation: alert; + not oriented x 3 Results & Data Vital Signs (Past 12 Hours) Vital Signs Temp Pulse Pulse Resp BP Pulse Ox 01/11/19 19:33 36.5 C 81 18 76/58 L 90 01/11/19 19:19 84 18 92 01/11/19 15:45 36.9 C 82 18 130/92 92 01/11/19 15:18 88 01/11/19 14:43 82 18 94 01/11/19 11:08 93 H 20 94 01/11/19 11:04 36.7 C 99 H 22 98/77 L 95 Laboratory Results Laboratory Results - last 24 hr 01/11/19 01/11/19 09:39 09:39 Hgb 11.0 L Hct 34.9 L Sodium 138 Potassium 3.0 L Chloride 101 Carbon Dioxide 29 Anion Gap 8.0 BUN 9 Creatinine 0.75 Est Cr Clr Drug Dosing 73.7 Est GFR ( Amer) 83.7 Est GFR (Non-Af Amer) 72.2 BUN/Creatinine Ratio 11.7 Glucose 130 H Calcium 8.3 L Magnesium 2.0 PG Care Time/CCT Total # of Minutes Spent Total Time Spent with Patient: Total time spent is greater than 50% in coordination of care (as documented) at patient's floor/unit and/or counseling patient: (1) Diastolic congestive heart failure Heart failure chronicity: acute on chronic Qualified Code(s): I50.33 - Acute on chronic diastolic (congestive) heart failure (2) Apnea, sleep Sleep apnea type: obstructive Qualified Code(s): G47.33 - Obstructive sleep apnea (adult) (pediatric) (3) Acute and chronic respiratory failure Respiratory failure complication: hypoxia Qualified Code(s): J96.21 - Acute and chronic respiratory failure with hypoxia (4) Alzheimers disease Alzheimer's disease onset: unspecified onset Dementia behavioral disturbance: without behavioral disturbance Qualified Code(s): G30.9 - Alzheimer's disease, unspecified; F02.80 - Dementia in other diseases classified elsewhere without behavioral disturbance (5) A-fib Atrial fibrillation type: unspecified Qualified Code(s): I48.91 - Unspecified atrial fibrillation (6) Depression Depression Type: other depression Qualified Code(s): F32.89 - Other specified depressive episodes (7) Hypertension Hypertension type: essential hypertension Qualified Code(s): I10 - Essential (primary) hypertension (8) Asthma Asthma severity: unspecified severity Asthma persistence: unspecified Asthma complication type: uncomplicated Qualified Code(s): J45.909 - Unspecified asthma, uncomplicated
[2019-01-11] MEDS: DONEPEZIL HCL 10 MG TAB PO SCH (21:14)
[2019-01-12] MEDS: AMIODARONE / D5W 360 MG/200 ML BAG IV SCH ×2 (02:47→14:30)
[2019-01-12] MEDS: ALBUT/IPRATROP 3MG/0.5MG NEB 3 ML VIAL NEB SCH ×2 (06:52→11:12)
[2019-01-12] MEDS: BUDESONIDE 0.5 MG/2 ML VIAL (PULMICORT) INH SCH ×2 (06:52→19:00)
[2019-01-12 06:57] LABS: BUN Creatinine Ratio 14.5 (10-20); Calcium 8.6 mg/dl (8.5-10.1); Creatinine Clr Calc Pharmacy 81.4 ml/min; Est GFR (African American) 91.8; Est GFR (Non-African American) 79.2; Potassium 3.8 mmol/L (3.5-5.1)
[2019-01-12] MEDS: APIXABAN 5 MG TABLET PO SCH ×2 (08:41→21:15)
[2019-01-12] MEDS: MEMANTINE HCL 5 MG TAB PO SCH (08:41)
[2019-01-12] MEDS: DOCUSATE SODIUM 100 MG CAP PO SCH (08:41)
[2019-01-12] MEDS: METOPROLOL SUCC 50MG EXT REL TAB PO SCH (08:41)
[2019-01-12] MEDS: MUPIROCIN 2% OINT 22 GM TUBE EXT SCH ×2 (08:41→21:13)
[2019-01-12] MEDS: SERTRALINE HCL 50 MG TABLET PO SCH (08:41)
[2019-01-12] MEDS: MICONAZOLE NITRATE POWDER 43 GM EXT SCH ×2 (08:42→21:13)
[2019-01-12] MEDS: POTASSIUM CHLORIDE 20 MEQ TABCR PO SCH ×3 (08:43→21:15)
[2019-01-12] MEDS ORDERED: FUROSEMIDE 60 MG in SYRINGE 0 ML IV SCH (09:00)
[2019-01-12] MEDS: LEVALBUTEROL 1.25MG/0.5ML NEB NEB SCH ×2 (14:41→19:00)
--- NOTE | 2019-01-12 16:17 | XRay Report ---
SINGLE VIEW CHEST CLINICAL HISTORY: Bilateral wheezing. FINDINGS: An AP, portable, upright chest radiograph is compared to study dated 01/09/2019 and correlat ed with chest CT dated 05/28/2017. The examination is degraded by portable technique, large body habit us, and patient rotation. A 2-lead cardiac pacemaker is unchanged in position. The heart is enlarged and there is atherosclerotic calcification of the thoracic aorta. There is pulmonary vascular conges tion with evidence of interstitial edema. Small pleural effusions are suspected. Bibasilar atelectasi s is noted. No pneumothorax is seen. The skeletal structures are osteopenic. Posttraumatic deformity is partially visualized in the left proximal humerus. IMPRESSION: 1. Cardiomegaly and cardiac pacemaker with evidence of congestive failure and interstitial edema. Thi s has modestly improved from 01/09/2019. 2. There are small pleural effusions. Electronically signed by: Arie Greenberg M.D. 01/12/2019 4:16 PM
[2019-01-12] MEDS: DIGOXIN 0.125 MG TAB PO SCH (16:44)
[2019-01-12] MEDS: FUROSEMIDE 60 MG in SYRINGE 0 ML IV SCH (16:45)
--- NOTE | 2019-01-12 20:31 | Hospitalist Progress Note ---
Date of Service January 12, 2019 Assessment & Plan (1) Diastolic congestive heart failure: acute/chronic. likely exacerbated by rapid a.fib. continue IV lasix but INCREASE to 60mg IV BID as she has had no change in weights or any significant net negative output. if this does not induce an effective diuresis consider increasing lasix again OR changing to IV bumex. continue amiodarone infusion. Defer management to cardiology. daily weights, I/O's, etc. dry weight ~121kg. continue beta marquise. repeat cxr today to ensure no other process present. (2) Acute and chronic respiratory failure: on 3 L NC continuously outside hospital O2 requirement is at baseline today (3) A-fib: remains on amiodarone drip, Digoxin and metoprolol continue apixaban 5mg bId for anticoagulation cardiology, Dr. Cannon, has made orozco recommendations for her care; appreciate his assistance rates uncontrolled despite the above will d/c albuterol; change to xopenex; this may help rates defer management to Dr Cannon and cardiology (4) Cardiac pacemaker: recent interrogation with good function (5) Apnea, sleep: cont night-time BIPAP (6) Hypertension: BPs controlled; transient hypotension at times but creatinine stable. (7) Asthma: wheezing on exam - suspect it is "Cardiac" wheezing (ie wheezes due to pulm edema). was recently treated for aspiration pneumonia and asthma flare earlier this month and had been on antibiotics / steroid taper. defer on such. treat underlying CHF. change duonebs to xopenex/atrovent - latter may be better for heart rate. (8) Situational anxiety: cont SSRI (9) Alzheimers disease: advanced cont namenda cont aricept (10) Depression: SSRI (11) Morbid obesity with BMI of 45.0-49.9, adult: BMI 45.5 (12) Hypokalemia: replaced and resolved repeat BMP am (13) DVT prophylaxis: apixaban BID PT, OT consults requested dried blood in nose -- cont saline drops and bactroban to both nares BID daughter updated by phone 01/12/19 Subjective no new issues overnight. tele - paced or a.fib with uncontrolled rates. during the visit she denied any complaints. she was pleasantly confused much like previous visits. eating well. cannot offer much in way of history. Review of Systems Review of Systems: Unobtainable due to cognitive status Physical Exam Constitutional: + morbidly obese and + altered mental status; no acute distress ENMT: external ear and nose normal, oropharynx normal Nose: + turbinate abnormality (dried blood b/l nares but improved today ) Respiratory: Auscultation: + crackles (bases) and + wheezes (end-expiratory ) Cardiovascular: Rate/Rhythm: regular rate and + irregularly irregular Heart Sounds: normal S1 and normal S2 Vessels: posterior tibial pulses present and dorsalis pedis pulses present; no JVD (difficult to assess because of large neck ) Extremities: + edema Gastrointestinal (Abdomen): normal bowel sounds, soft, nontender, no hepatosplenomegaly Psychiatric: Orientation: alert; + not oriented x 3 Results & Data Vital Signs (Past 12 Hours) Vital Signs Temp Pulse Pulse Resp BP Pulse Ox 01/12/19 19:05 36.5 C 94 H 22 105/53 L 98 01/12/19 19:02 95 H 20 93 01/12/19 16:44 114 H 01/12/19 15:45 36.6 C 101 H 16 92/60 L 98 01/12/19 14:42 90 20 94 01/12/19 12:07 36.8 C 102 H 21 102/65 96 01/12/19 12:00 62 01/12/19 11:12 101 H 20 93 01/12/19 09:53 95 Laboratory Results Laboratory Results - last 24 hr 01/12/19 05:38 Sodium 140 Potassium 3.8 D Chloride 104 Carbon Dioxide 30 Anion Gap 6.0 BUN 10 Creatinine 0.68 Est Cr Clr Drug Dosing 81.4 Est GFR ( Amer) 91.8 Est GFR (Non-Af Amer) 79.2 BUN/Creatinine Ratio 14.5 Glucose 113 H Calcium 8.6 PG Care Time/CCT Total # of Minutes Spent Total Time Spent with Patient: Total time spent is greater than 50% in coordination of care (as documented) at patient's floor/unit and/or counseling patient: (1) Diastolic congestive heart failure Heart failure chronicity: acute on chronic Qualified Code(s): I50.33 - Acute on chronic diastolic (congestive) heart failure (2) Apnea, sleep Sleep apnea type: obstructive Qualified Code(s): G47.33 - Obstructive sleep apnea (adult) (pediatric) (3) Acute and chronic respiratory failure Respiratory failure complication: hypoxia Qualified Code(s): J96.21 - Acute and chronic respiratory failure with hypoxia (4) Alzheimers disease Alzheimer's disease onset: unspecified onset Dementia behavioral disturbance: without behavioral disturbance Qualified Code(s): G30.9 - Alzheimer's disease, unspecified; F02.80 - Dementia in other diseases classified elsewhere without behavioral disturbance (5) A-fib Atrial fibrillation type: unspecified Qualified Code(s): I48.91 - Unspecified atrial fibrillation (6) Depression Depression Type: other depression Qualified Code(s): F32.89 - Other specified depressive episodes (7) Hypertension Hypertension type: essential hypertension Qualified Code(s): I10 - Essential (primary) hypertension (8) Asthma Asthma complication type: uncomplicated Asthma persistence: unspecified Asthma severity: unspecified severity Qualified Code(s): J45.909 - Unspecified asthma, uncomplicated
[2019-01-12] MEDS: DONEPEZIL HCL 10 MG TAB PO SCH (21:16)
[2019-01-13] MEDS: LEVALBUTEROL 1.25MG/0.5ML NEB NEB SCH ×4 (00:26→19:00)
[2019-01-13] MEDS: AMIODARONE / D5W 360 MG/200 ML BAG IV SCH (02:56)
[2019-01-13 06:40] LABS: BUN Creatinine Ratio 13.8 (10-20); Calcium 8.6 mg/dl (8.5-10.1); Creatinine Clr Calc Pharmacy 78.2 ml/min; Est GFR (African American) 89.4; Est GFR (Non-African American) 77.1; Potassium 3.9 mmol/L (3.5-5.1)
[2019-01-13] MEDS: BUDESONIDE 0.5 MG/2 ML VIAL (PULMICORT) INH SCH ×2 (06:54→19:00)
[2019-01-13] MEDS: DOCUSATE SODIUM 100 MG CAP PO SCH (07:57)
[2019-01-13] MEDS: MUPIROCIN 2% OINT 22 GM TUBE EXT SCH ×2 (07:57→21:19)
[2019-01-13] MEDS: SERTRALINE HCL 50 MG TABLET PO SCH (07:58)
[2019-01-13] MEDS: APIXABAN 5 MG TABLET PO SCH ×2 (07:58→21:20)
[2019-01-13] MEDS: MEMANTINE HCL 5 MG TAB PO SCH (07:58)
[2019-01-13] MEDS: METOPROLOL SUCC 50MG EXT REL TAB PO SCH (07:59)
[2019-01-13] MEDS: POTASSIUM CHLORIDE 20 MEQ TABCR PO SCH ×3 (07:59→21:21)
[2019-01-13] MEDS: FUROSEMIDE 60 MG in SYRINGE 0 ML IV SCH (08:00)
[2019-01-13] MEDS: MICONAZOLE NITRATE POWDER 43 GM EXT SCH ×2 (08:01→21:19)
--- NOTE | 2019-01-13 09:34 | Cardiology Progress Note ---
Date of Service January 13, 2019 Assessment & Plan (1) AF (paroxysmal atrial fibrillation): She was actually in a sinus rhythm for significant portion of her admission. She did revert back to atrial fibrillation. Overall rate control appears adequate given current lenient standards. This could change with agitation or ambulation. At this point we can certainly discontinue her amiodarone infusion. Given the fact that she still appears to oscillator between sinus rhythm and atrial fibrillation, there may be some continued efficacy in using amiodarone both for rate control and rhythm control. I will switch her to an oral regimen. For additional high heart rates at times could c onsider addition of diltiazem. She did have an element of hypotension with the infusion during the initial portion of her hospitalization. She will continue on her current anticoagulation with Eliquis. (2) Diastolic congestive heart failure: She has had some diuresis since admission. I think we can be more aggressive with her diuretics. Will continue to monitor her renal function and electrolytes closely. (3) Cardiac pacemaker: Normal function. Subjective She did not provide any meaningful history. However, she did not endorse any symptoms of pain or breathing difficulty. She was not aware of her surroundings. She had no insight into her current medical condition. She was very agitated when the nurses attempted to bathe her. Review of Systems Review of Systems: Unobtainable due to cognitive status Physical Exam Physical Exam: She is alert . She answered questions. She was not oriented except to person. HEENT: Sclerae are anicteric. Pupils are equal and reactive to light and accommodation. Extraocular movements were intact. Neuro: Cranial nerves intact Lungs: Apices are clear. Normal respiratory effort. Some expiratory wheezing. Cardiac: The rhythm was regular. S1 and S2 were normal. There are no murmurs on examination. The PMI was not markedly displaced on palpation. Abdomen: The abdomen was soft and nontender. Extremities: Patient has bilateral radial pulses that are equal in intensity. There is no evidence cyanosis or clubbing. Moderate lower extremity edema Results & Data Vital Signs (Past 12 Hours) Vital Signs Temp Pulse Pulse Resp BP Pulse Ox 01/13/19 07:45 36.9 C 79 18 130/56 L 94 01/13/19 06:55 86 86 21 92 01/13/19 05:43 87 20 97 01/13/19 03:36 36.9 C 109 H 18 129/64 95 01/13/19 00:28 90 18 94 01/13/19 00:26 90 18 94 01/12/19 23:56 36.8 C 108 H 18 134/46 L 94 01/12/19 23:00 91 H 01/12/19 22:00 104 H 20 96 Laboratory Results Abnormal Lab Results 01/13/19 05:28 Sodium 140 Potassium 3.9 Chloride 104 Carbon Dioxide 29 Anion Gap 7.0 BUN 10 Creatinine 0.71 Est Cr Clr Drug Dosing 78.2 Est GFR ( Amer) 89.4 Est GFR (Non-Af Amer) 77.1 BUN/Creatinine Ratio 13.8 Glucose 112 H Calcium 8.6 Diagnostic Findings chest x-ray obtained yesterday suggested some modest improvement in pulmonary edema. PG Care Time/CCT Total # of Minutes Spent Total Time Spent with Patient: Total time spent is greater than 50% in coordination of care (as documented) at patient's floor/unit and/or counseling patient: (1) Diastolic congestive heart failure Heart failure chronicity: acute on chronic Qualified Code(s): I50.33 - Acute on chronic diastolic (congestive) heart failure
--- NOTE | 2019-01-13 15:39 | Hospitalist Progress Note ---
Date of Service January 13, 2019 Assessment & Plan (1) Diastolic congestive heart failure: acute/chronic. likely exacerbated by rapid a.fib. continue IV lasix at 60mg IV BID, better output and Cr is holding repeat BMP in the AM, may push dosing further if Cr continues to hold change Amiodarone to PO today daily weights, I/O's, etc. weight is still up at 128kg dry weight ~121kg. negative 2300cc for admission continue beta marquise. (2) Acute and chronic respiratory failure: on 3 L NC continuously outside hospital O2 requirement is at baseline today no distress or increased work of breathing (3) A-fib: treated with amiodarone drip, Digoxin and metoprolol continue apixaban 5mg bId for anticoagulation cardiology, Dr. Cannon, has made orozco recommendations for her care; appreciate his assistance rates better controlled the past 24 hours, 80-90's change Amiodarone to PO today, continue Toprol 200mg, continue Digoxin will d/c albuterol; change to xopenex; this may help rates (4) Cardiac pacemaker: recent interrogation with good function (5) Apnea, sleep: cont night-time BIPAP (6) Hypertension: BPs controlled; transient hypotension at times but creatinine stable. (7) Asthma: wheezing on exam - suspect it is "Cardiac" wheezing (ie wheezes due to pulm edema). was recently treated for aspiration pneumonia and asthma flare earlier this month and had been on antibiotics / steroid taper. defer on such. treat underlying CHF. change duonebs to xopenex/atrovent - latter may be better for heart rate. (8) Situational anxiety: cont SSRI (9) Alzheimers disease: advanced cont namenda cont aricept (10) Depression: SSRI (11) Morbid obesity with BMI of 45.0-49.9, adult: BMI 45.5 (12) Hypokalemia: replaced and resolved repeat BMP am (13) DVT prophylaxis: apixaban BID PT, OT consults requested dried blood in nose -- cont saline drops and bactroban to both nares BID daughter updated by phone 01/12/[address] Major Subjective patient OOB in chair today which is an improvement she says she is breathing better appreciate recommendations from Dr. Cannon, spoke with him will change Amiodarone to PO, continue on Toprol monitor for improvement in fluid status with increase in Lasix to 60mg IV Cr is holding on this AM labs, below 1, electrolytes stable on I/O she is negative 2300cc Review of Systems Review of Systems: All systems reviewed & are unremarkable except as noted in HPI & below Constitutional: + fatigue and + weakness; no fever Respiratory: + dyspnea on exertion; no cough and no dyspnea Cardiovascular: + edema; no chest pain, no palpitations and no syncope Gastrointestinal: no abdominal pain, no nausea, no vomiting, no constipation and no diarrhea/loose stools Neurologic: + confusion Physical Exam Constitutional: WD/WN, vitals as above + overweight Eyes: PERRL, conjunctivae normal, anicteric sclerae ENMT: external ear and nose normal, oropharynx normal Neck: trachea midline, no thyromegaly Respiratory: normal respiratory effort, lungs clear to auscultation Cardiovascular: Rate/Rhythm: regular rate and + irregularly irregular Heart Sounds: normal S1 and normal S2; no murmur Extremities: normal capillary refill and + edema Gastrointestinal (Abdomen): normal bowel sounds, soft, nontender, no hepatosplenomegaly Musculoskeletal: no cyanosis or clubbing, extremities motor strength 5/5 Skin: no rashes, warm and dry Neurologic: patellar DTR's 2+ bilat, sensation intact and PERRL, EOMI, accommodation nl, no face palsy, no dysarthria Psychiatric: Orientation: alert, oriented to person, oriented to place and cooperative; + not oriented to time Lymphatic: no cervical or axillary lymphadenopathy Results & Data Vital Signs (Past 12 Hours) Vital Signs Temp Pulse Pulse Resp BP BP Pulse Ox 01/13/19 15:10 37.0 C 94 H 19 96/63 L 95 01/13/19 13:15 88 104/75 01/13/19 12:47 74 18 95 01/13/19 11:42 37.0 C 92 H 18 133/102 H 96 01/13/19 08:00 109 H 01/13/19 07:45 36.9 C 79 18 130/56 L 94 01/13/19 06:55 86 86 21 92 01/13/19 05:43 87 20 97 Laboratory Results Laboratory Results - last 24 hr 01/13/19 05:28 Sodium 140 Potassium 3.9 Chloride 104 Carbon Dioxide 29 Anion Gap 7.0 BUN 10 Creatinine 0.71 Est Cr Clr Drug Dosing 78.2 Est GFR ( Amer) 89.4 Est GFR (Non-Af Amer) 77.1 BUN/Creatinine Ratio 13.8 Glucose 112 H Calcium 8.6 Medications Administered Current Inpatient Medications Acetaminophen (Tylenol) 650 mg PO Q4H PRN PRN Reason: Pain or Fever Stop: 02/08/19 05:31 Al Hydrox/Mg Hydrox/Simethicone (Maalox) 15 ml PO Q4H PRN PRN Reason: Dyspepsia Stop: 02/08/19 05:31 Amiodarone HCl (Cordarone) 400 mg PO BIDM [facility] Stop: 02/12/19 16:59 Apixaban (Eliquis) 5 mg PO BID [facility] Stop: 02/08/19 08:59 Last Admin: 01/13/19 07:58 Dose: 5 mg Documented by: Budesonide (Pulmicort Respules) 0.5 mg INH BIDR [facility] Stop: 02/08/19 06:59 Last Admin: 01/13/19 06:54 Dose: 0.5 mg Documented by: Digoxin (Lanoxin) 0.125 mg PO DAILY@1600 [facility] Stop: 02/08/19 15:59 Last Admin: 01/12/19 16:44 Dose: 0.125 mg Documented by: Docusate Sodium (Colace) 100 mg PO DAILY [facility] Stop: 02/08/19 08:59 Last Admin: 01/13/19 07:57 Dose: 100 mg Documented by: Donepezil HCl (Aricept) 10 mg PO HS [facility] Stop: 02/08/19 20:59 Last Admin: 01/12/19 21:16 Dose: 10 mg Documented by: Furosemide 80 mg/ Syringe 8 mls @ 4 mls/min IV BID17 [facility] Stop: 02/12/19 16:59 Levalbuterol HCl (Xopenex 1.25mg/0.5ml Neb) 1.25 mg NEB Q6R [facility] Stop: 02/11/19 13:59 Last Admin: 01/13/19 12:45 Dose: 1.25 mg Documented by: Magnesium Hydroxide (Milk Of Magnesia) 30 ml PO Q12H PRN PRN Reason: Constipation Stop: 02/08/19 05:31 Memantine (Namenda) 5 mg PO DAILY [facility] Stop: 02/08/19 08:59 Last Admin: 01/13/19 07:58 Dose: 5 mg Documented by: Metoprolol Succinate (Toprol Xl) 200 mg PO DAILY [facility] Stop: 02/08/19 08:59 Last Admin: 01/13/19 07:59 Dose: 200 mg Documented by: Metoprolol Tartrate (Lopressor) 5 mg IV Q4 PRN PRN Reason: Tachycardia Stop: 02/08/19 05:31 Miconazole Nitrate (Desenex) 1 appln EXT BID [facility] Stop: 02/08/19 20:59 Last Admin: 01/13/19 08:01 Dose: 1 appln Documented by: Mupirocin (Bactroban 2%) 1 appln EXT BID [facility] Stop: 02/10/19 14:39 Last Admin: 01/13/19 07:57 Dose: 1 appln Documented by: Polyethylene Glycol (Miralax Powder Packet) 17 gm PO DAILY PRN PRN Reason: Constipation Stop: 02/08/19 05:31 Potassium Chloride (Klor-Con M20) 40 meq PO TID [facility] Stop: 02/10/19 15:14 Last Admin: 01/13/19 14:15 Dose: 40 meq Documented by: Sertraline HCl (Zoloft) 50 mg PO DAILY [facility] Stop: 02/08/19 08:59 Last Admin: 01/13/19 07:58 Dose: 50 mg Documented by: Sodium Chloride ([place] Nasal) 2 sprays NA Q1H PRN PRN Reason: Nasal Congestion Stop: 02/10/19 14:44 PG Care Time/CCT Total # of Minutes Spent Total Time Spent with Patient: Total time spent is greater than 50% in co ordination of care (as documented) at patient's floor/unit and/or counseling patient: (1) Diastolic congestive heart failure Heart failure chronicity: acute on chronic Qualified Code(s): I50.33 - Acute on chronic diastolic (congestive) heart failure (2) Apnea, sleep Sleep apnea type: obstructive Qualified Code(s): G47.33 - Obstructive sleep apnea (adult) (pediatric) (3) Acute and chronic respiratory failure Respiratory failure complication: hypoxia Qualified Code(s): J96.21 - Acute and chronic respiratory failure with hypoxia (4) Alzheimers disease Alzheimer's disease onset: unspecified onset Dementia behavioral disturbance: without behavioral disturbance Qualified Code(s): G30.9 - Alzheimer's disease, unspecified; F02.80 - Dementia in other diseases classified elsewhere without behavioral disturbance (5) A-fib Atrial fibrillation type: unspecified Qualified Code(s): I48.91 - Unspecified atrial fibrillation (6) Depression Depression Type: other depression Qualified Code(s): F32.89 - Other specified depressive episodes (7) Hypertension Hypertension type: essential hypertension Qualified Code(s): I10 - Essential (primary) hypertension (8) Asthma Asthma complication type: uncomplicated Asthma persistence: unspecified Asthma severity: unspecified severity Qualified Code(s): J45.909 - Unspecified asthma, uncomplicated
[2019-01-13] MEDS: DIGOXIN 0.125 MG TAB PO SCH (16:18)
[2019-01-13] MEDS: AMIODARONE 200 MG TAB PO SCH (16:19)
[2019-01-13] MEDS: FUROSEMIDE 80 MG in SYRINGE 0 ML IV SCH (16:23)
[2019-01-13] MEDS: DONEPEZIL HCL 10 MG TAB PO SCH (21:21)
[2019-01-14] MEDS: LEVALBUTEROL 1.25MG/0.5ML NEB NEB SCH ×4 (01:08→18:59)
[2019-01-14] MEDS: BUDESONIDE 0.5 MG/2 ML VIAL (PULMICORT) INH SCH ×2 (07:16→18:58)
[2019-01-14] MEDS: MICONAZOLE NITRATE POWDER 43 GM EXT SCH ×2 (08:26→21:19)
[2019-01-14] MEDS: METOPROLOL SUCC 50MG EXT REL TAB PO SCH (08:28)
[2019-01-14] MEDS: SERTRALINE HCL 50 MG TABLET PO SCH (08:29)
[2019-01-14] MEDS: DOCUSATE SODIUM 100 MG CAP PO SCH (08:29)
[2019-01-14] MEDS: FUROSEMIDE 80 MG in SYRINGE 0 ML IV SCH ×2 (08:29→16:24)
[2019-01-14] MEDS: POTASSIUM CHLORIDE 20 MEQ TABCR PO SCH ×3 (08:30→21:19)
[2019-01-14] MEDS: MUPIROCIN 2% OINT 22 GM TUBE EXT SCH ×2 (08:30→21:18)
[2019-01-14] MEDS: MEMANTINE HCL 5 MG TAB PO SCH (08:31)
[2019-01-14] MEDS: AMIODARONE 200 MG TAB PO SCH ×2 (08:31→16:24)
[2019-01-14] MEDS: APIXABAN 5 MG TABLET PO SCH ×2 (08:31→21:19)
[2019-01-14] MEDS ORDERED: Nursing to Pharmacy Communication ONE (09:36)
--- NOTE | 2019-01-14 10:53 | Cardiology Progress Note ---
Date of Service January 14, 2019 Assessment & Plan (1) AF (paroxysmal atrial fibrillation): I think her rate control is adequate. Generally speaking she performs very little activity. Her average heart rates however around 100 which according to current lenient guidelines would be reasonable. Not confident would need to be more aggressive. We will likely see some additional effect of the amiodarone as she takes more as an outpatient. She has been placed on 400 milligrams twice daily currently. In 1 week she could be transitioned to 200 milligrams daily. She will continue on her anticoagulation. (2) Diastolic congestive heart failure: She has had some diuresis since admission. Yesterday her diuretic dose was increased. No electrolytes were drawn this morning. At the time of discharge her current dose could be transitioned to oral torsemide. (3) Cardiac pacemaker: Normal function. Subjective She was more confused than usual this morning. She has not report any symptoms of pain or breathing difficulty. Review of Systems Review of Systems: Unobtainable due to cognitive status Physical Exam Physical Exam: She is alert and oriented x3. Mood affect appear normal. She answered all questions appropriately. Obese HEENT: Sclerae are anicteric. Pupils are equal and reactive to light and accommodation. Extraocular movements were intact. Neuro: Cranial nerves intact Lungs: Lungs are clear to auscultation bilaterally. There are no rales wheezes or rhonchi. She has normal respiratory effort without use of accessory muscles. There is normal pulmonary excursion. Cardiac: The rhythm was irregular. S1 and S2 were normal. There are no murmurs on examination. The PMI was not markedly displaced on palpation. Abdomen: The abdomen was soft and nontender. Obese Extremities: Patient has bilateral radial pulses that are equal in intensity. Mild bilateral lower extremity edema Skin: There are no rashes noted on examination today. Results & Data Vital Signs (Past 12 Hours) Vital Signs Temp Pulse Pulse Resp BP Pulse Ox 01/14/19 09:00 88 01/14/19 07:18 103 H 16 94 01/14/19 07:17 91 H 16 94 01/14/19 07:02 36.5 C 95 H 22 135/70 97 01/14/19 04:31 37.0 C 111 H 22 109/65 99 01/14/19 01:10 103 H 24 98 01/14/19 01:09 101 H 22 99 01/14/19 00:35 36.8 C 103 H 20 105/58 L 96 PG Care Time/CCT Total # of Minutes Spent Total Time Spent with Patient: Total time spent is greater than 50% in coordination of care (as documented) at patient's floor/unit and/or counseling patient: (1) Diastolic congestive heart failure Heart failure chronicity: acute on chronic Qualified Code(s): I50.33 - Acute on chronic diastolic (congestive) heart failure
[2019-01-14] MEDS: DIGOXIN 0.125 MG TAB PO SCH (16:23)
[2019-01-14] MEDS: DONEPEZIL HCL 10 MG TAB PO SCH (21:18)
--- NOTE | 2019-01-14 22:02 | Hospitalist Progress Note ---
Date of Service January 14, 2019 Assessment & Plan (1) Diastolic congestive heart failure: acute on chronic. likely exacerbated by rapid a.fib. increase lasix at 80mg IV BID more diuresis the past three days repeat BMP in the AM change Amiodarone to PO on 01/13 daily weights, I/O's, etc. weight coming down to 126kg dry weight ~121kg. negative 4000cc for admission continue beta marquise. Dr. Cannon following, appreciate his input (2) Acute and chronic respiratory failure: on 3 L NC continuously outside hospital O2 requirement is at baseline today no distress or increased work of breathing lungs without rales today (3) A-fib: treated with amiodarone drip, Digoxin and metoprolol continue apixaban 5mg bid for anticoagulation cardiology, Dr. Cannon, has made orozco recommendations for her care; appreciate his assistance rates better controlled the past 48 hours, 80-90's changed Amiodarone to PO 01/13, continue Toprol 200mg, continue Digoxin will d/c albuterol; change to xopenex; this may help rates (4) Cardiac pacemaker: recent interrogation with good function (5) Apnea, sleep: cont night-time BIPAP (6) Hypertension: BPs controlled; transient hypotension at times but creatinine stable. (7) Asthma: wheezing on exam - suspect it is "Cardiac" wheezing (ie wheezes due to pulm edema). was recently treated for aspiration pneumonia and asthma flare earlier this month and had been on antibiotics / steroid taper. defer on such. treat underlying CHF. change duonebs to xopenex/atrovent - latter may be better for heart rate. (8) Situational anxiety: cont SSRI (9) Alzheimers disease: advanced cont namenda cont aricept (10) Depression: SSRI (11) Morbid obesity with BMI of 45.0-49.9, adult: BMI 45.5 (12) Hypokalemia: replaced and resolved repeat BMP tomorrow (13) DVT prophylaxis: apixaban BID PT, OT consults requested dried blood in nose -- cont saline drops and bactroban to both nares BID Subjective patient is breathing well today, OOB in chair still with edema eating okay, she cannot tell me if she is moving her bowels clear yellow urine in the [place] discussed with Dr. Cannon, appreciate his input, increased Lasix to 80mg IV BID, good response thus far negative 4 liters of fluid weight down to 126kg, baseline is 121kg Review of Systems Review of Systems: All systems reviewed & are unremarkable except as noted in HPI & below Respiratory: + dyspnea on exertion; no cough and no dyspnea Cardiovascular: + edema; no chest pain Gastrointestinal: no abdominal pain, no nausea, no vomiting, no constipation and no diarrhea/loose stools Physical Exam Constitutional: WD/WN, vitals as above + overweight Eyes: PERRL, conjunctivae normal, anicteric sclerae ENMT: external ear and nose normal, oropharynx normal Neck: trachea midline, no thyromegaly Respiratory: normal respiratory effort, lungs clear to auscultation Cardiovascular: Rate/Rhythm: regular rate and + irregularly irregular Heart Sounds: normal S1 and normal S2; no murmur Extremities: normal capillary refill and + edema Gastrointestinal (Abdomen): normal bowel sounds, soft, nontender, no hepatosplenomegaly Musculoskeletal: no cyanosis or clubbing, extremities motor strength 5/5 Skin: no rashes, warm and dry Neurologic: patellar DTR's 2+ bilat, sensation intact and PERRL, EOMI, accom modation nl, no face palsy, no dysarthria Psychiatric: Orientation: alert, oriented to person, oriented to place and cooperative; + not oriented to time Lymphatic: no cervical or axillary lymphadenopathy Results & Data Vital Signs (Past 12 Hours) Vital Signs Temp Pulse Pulse Resp BP BP Pulse Ox 01/14/19 19:25 36.7 C 88 16 125/64 94 01/14/19 19:01 88 16 99 01/14/19 16:23 89 01/14/19 15:09 96 H 01/14/19 15:02 36.9 C 95 H 22 97/77 L 92 01/14/19 13:22 96 H 20 95 Medications Administered Current Inpatient Medications Acetaminophen (Tylenol) 650 mg PO Q4H PRN PRN Reason: Pain or Fever Stop: 02/08/19 05:31 Al Hydrox/Mg Hydrox/Simethicone (Maalox) 15 ml PO Q4H PRN PRN Reason: Dyspepsia Stop: 02/08/19 05:31 Amiodarone HCl (Cordarone) 400 mg PO BIDM [facility] Stop: 02/12/19 16:59 Last Admin: 01/14/19 16:24 Dose: 400 mg Documented by: Apixaban (Eliquis) 5 mg PO BID [facility] Stop: 02/08/19 08:59 Last Admin: 01/14/19 21:19 Dose: 5 mg Documented by: Budesonide (Pulmicort Respules) 0.5 mg INH BIDR [facility] Stop: 02/08/19 06:59 Last Admin: 01/14/19 18:58 Dose: 0.5 mg Documented by: Digoxin (Lanoxin) 0.125 mg PO DAILY@1600 [facility] Stop: 02/08/19 15:59 Last Admin: 01/14/19 16:23 Dose: 0.125 mg Documented by: Docusate Sodium (Colace) 100 mg PO DAILY [facility] Stop: 02/08/19 08:59 Last Admin: 01/14/19 08:29 Dose: 100 mg Documented by: Donepezil HCl (Aricept) 10 mg PO HS [facility] Stop: 02/08/19 20:59 Last Admin: 01/14/19 21:18 Dose: 10 mg Documented by: Furosemide 80 mg/ Syringe 8 mls @ 4 mls/min IV BID17 [facility] Stop: 02/12/19 16:59 Last Admin: 01/14/19 16:24 Dose: 4 mls/min Documented by: Levalbuterol HCl (Xopenex 1.25mg/0.5ml Neb) 1.25 mg NEB Q6R [facility] Stop: 02/11/19 13:59 Last Admin: 01/14/19 18:59 Dose: 1.25 mg Documented by: Magnesium Hydroxide (Milk Of Magnesia) 30 ml PO Q12H PRN PRN Reason: Constipation Stop: 02/08/19 05:31 Memantine (Namenda) 5 mg PO DAILY [facility] Stop: 02/08/19 08:59 Last Admin: 01/14/19 08:31 Dose: 5 mg Documented by: Metoprolol Succinate (Toprol Xl) 200 mg PO DAILY [facility] Stop: 02/08/19 08:59 Last Admin: 01/14/19 08:28 Dose: 200 mg Documented by: Metoprolol Tartrate (Lopressor) 5 mg IV Q4 PRN PRN Reason: Tachycardia Stop: 02/08/19 05:31 Miconazole Nitrate (Desenex) 1 appln EXT BID [facility] Stop: 02/08/19 20:59 Last Admin: 01/14/19 21:19 Dose: 1 appln Documented by: Mupirocin (Bactroban 2%) 1 appln EXT BID [facility] Stop: 02/10/19 14:39 Last Admin: 01/14/19 21:18 Dose: 1 appln Documented by: Polyethylene Glycol (Miralax Powder Packet) 17 gm PO DAILY PRN PRN Reason: Constipation Stop: 02/08/19 05:31 Potassium Chloride (Klor-Con M20) 40 meq PO TID [facility] Stop: 02/10/19 15:14 Last Admin: 01/14/19 21:19 Dose: 40 meq Documented by: Sertraline HCl (Zoloft) 50 mg PO DAILY [facility] Stop: 02/08/19 08:59 Last Admin: 01/14/19 08:29 Dose: 50 mg Documented by: Sodium Chloride ([place] Nasal) 2 sprays NA Q1H PRN PRN Reason: Nasal Congestion Stop: 02/10/19 14:44 PG Care Time/CCT Total # of Minutes Spent Total Time Spent with Patient: Total time spent is greater than 50% in coordination of care (as documented) at patient's floor/unit and/or counseling patient: (1) Diastolic congestive heart failure Heart failure chronicity: acute on chronic Qualified Code(s): I50.33 - Acute on chronic diastolic (congestive) heart failure (2) Acute and chronic respiratory failure Respiratory failure complication: hypoxia Qualified Code(s): J96.21 - Acute and chronic respiratory failure with hypoxia (3) A-fib Atrial fibrillation type: unspecified Qualified Code(s): I48.91 - Unspecified atrial fibrillation (4) Apnea, sleep Sleep apnea type: obstructive Qualified Code(s): G47.33 - Obstructive sleep apnea (adult) (pediatric) (5) Hypertension Hypertension type: essential hypertension Qualified Code(s): I10 - Essential (primary) hypertension (6) Asthma Asthma severity: unspecified severity Asthma persistence: unspecified Asthma complication type: uncomplicated Qualified Code(s): J45.909 - Unspecified asthma, uncomplicated (7) Alzheimers disease Alzheimer's disease onset: unspecified onset Dementia behavioral disturbance: without behavioral disturbance Qualified Code(s): G30.9 - Alzheimer's disease, unspecified; F02.80 - Dementia in other diseases classified elsewhere without behavioral disturbance (8) Depression Depression Type: other depression Qualified Code(s): F32.89 - Other specified depressive episodes
[2019-01-15] MEDS: LEVALBUTEROL 1.25MG/0.5ML NEB NEB SCH ×4 (00:42→18:53)
[2019-01-15 06:50] LABS: BUN Creatinine Ratio 12.7 (10-20); Calcium 8.2 mg/dl (8.5-10.1); Creatinine Clr Calc Pharmacy 69.5 ml/min; Est GFR (African American) 78.6; Est GFR (Non-African American) 67.8; Potassium 4.1 mmol/L (3.5-5.1)
[2019-01-15] MEDS: BUDESONIDE 0.5 MG/2 ML VIAL (PULMICORT) INH SCH ×2 (06:56→18:53)
[2019-01-15] MEDS: FUROSEMIDE 80 MG in SYRINGE 0 ML IV SCH ×2 (08:03→16:33)
[2019-01-15] MEDS: POTASSIUM CHLORIDE 20 MEQ TABCR PO SCH ×2 (08:03→13:40)
[2019-01-15] MEDS: MEMANTINE HCL 5 MG TAB PO SCH (08:04)
[2019-01-15] MEDS: DOCUSATE SODIUM 100 MG CAP PO SCH (08:04)
[2019-01-15] MEDS: MICONAZOLE NITRATE POWDER 43 GM EXT SCH ×2 (08:04→20:25)
[2019-01-15] MEDS: APIXABAN 5 MG TABLET PO SCH ×2 (08:04→20:24)
[2019-01-15] MEDS: METOPROLOL SUCC 50MG EXT REL TAB PO SCH (08:04)
[2019-01-15] MEDS: SERTRALINE HCL 50 MG TABLET PO SCH (08:05)
[2019-01-15] MEDS: AMIODARONE 200 MG TAB PO SCH ×2 (08:05→16:33)
[2019-01-15] MEDS: MUPIROCIN 2% OINT 22 GM TUBE EXT SCH ×2 (08:05→20:24)
--- NOTE | 2019-01-15 11:04 | Hospitalist Progress Note ---
Date of Service January 15, 2019 Assessment & Plan (1) Diastolic congestive heart failure: acute on chronic. likely exacerbated by rapid a.fib. continue lasix at 80mg IV BID, responding well will add a dose of Zaroxolyn 5mg in the AM to help with diuresis repeat BMP in the AM, K is 4.1 this morning changed Amiodarone to 400mg PO BID on 01/13 daily weights, I/O's, etc. weight coming down to 126kg dry weight ~121kg. negative 4700cc for admission continue beta marquise. Dr. Cannon following, appreciate his input (2) Acute and chronic respiratory failure: titrated down to room air today no distress or increased work of breathing lungs without rales today (3) A-fib: treated with amiodarone drip, Digoxin and metoprolol continue apixaban 5mg bid for anticoagulation cardiology, Dr. Cannon, has made orozco recommendations for her care; appreciate his assistance rates better controlled the past 48 hours, down to 60's today, paced on monitor changed Amiodarone to PO 01/13, continue Toprol 200mg, continue Digoxin will d/c albuterol; change to xopenex; this may help rates can downgrade to medical floor today since she is paced and not tachycardic (4) Cardiac pacemaker: recent interrogation with good function pacing today at 60 (5) Apnea, sleep: cont night-time BIPAP (6) Hypertension: BPs controlled; transient hypotension at times but creatinine stable. (7) Asthma: wheezing on exam - suspect it is "Cardiac" wheezing (ie wheezes due to pulm edema). was recently treated for aspiration pneumonia and asthma flare earlier this month and had been on antibiotics / steroid taper. defer on such. treat underlying CHF. change duonebs to xopenex/atrovent - latter may be better for heart rate. (8) Situational anxiety: cont SSRI (9) Alzheimers disease: advanced cont namenda cont aricept (10) Depression: SSRI (11) Morbid obesity with BMI of 45.0-49.9, adult: BMI 45.5 (12) Hypokalemia: replaced and resolved K is 4.1 today will change KCl to 40mEq daily from TID repeat BMP tomorrow (13) DVT prophylaxis: apixaban BID PT, OT consults requested, at baseline, can return to [facility] assisted living when medically stable likely needs 2-3 more days in hospital for diuresis, want her to be euvolemic on discharge Subjective patient OOB in chair, breathing well, off of oxygen this AM, no distress lungs are clear on the monitor her HR down to 60's, she is paced blood pressure stable continues to respond well to Lasix 80mg IV BID negative 4700mL for admission, weight down slightly at 126kg, unsure if entirely accurate edema is improving patient is eating okay reviewed labs, Cr is stable, K is 4.1 Review of Systems Review of Systems: All systems reviewed & are unremarkable except as noted in HPI & below Respiratory: + dyspnea on exertion; no cough and no dyspnea Cardiovascular: + edema (improved); no chest pain Gastrointestinal: no abdominal pain, no nausea, no vomiting, no constipation and no diarrhea/loose stools Physical Exam Constitutional: WD/WN, vitals as above + overweight Eyes: PERRL, conjunctivae normal, anicteric sclerae ENMT: external ear and nose normal, oropharynx normal Neck: trachea midline, no thyromegaly Respiratory: normal respiratory effort, lungs clear to auscultation Cardiovascular: Rate/Rhythm: regular rate and + irregularly irregular Heart Sounds: normal S1 and normal S2; no murmur Extremities: normal capillary refill and + edema Gastrointestinal (Abdomen): normal bowel sounds, soft, nontender, no hepatosplenomegaly Musculoskeletal: no cyanosis or clubbing, extremities motor strength 5/5 Skin: no rashes, warm and dry Neurologic: patellar DTR's 2+ bilat, sensation intact and PERRL, EOMI, accommodation nl, no face palsy, no dysarthria Psychiatric: Orientation: alert, oriented to person, oriented to place and cooperative; + not oriented to time Lymphatic: no cervical or axillary lymphadenopathy Results & Data Vital Signs (Past 12 Hours) Vital Signs Temp Pulse Pulse Resp BP BP Pulse Ox 01/15/19 10:39 36 C L 60 17 112/83 92 01/15/19 07:02 36.7 C 61 20 103/62 98 01/15/19 06:58 60 60 16 98 01/15/19 02:35 36.9 C 96 H 18 100/69 96 01/15/19 00:43 86 16 98 01/15/19 00:17 87 01/14/19 23:45 88 26 H 95 01/14/19 23:37 37.2 C 78 19 98/43 L 95 Laboratory Results Laboratory Results - last 24 hr 01/15/19 05:40 Sodium 143 Potassium 4.1 Chloride 105 Carbon Dioxide 28 Anion Gap 10.0 BUN 10 Creatinine 0.79 Est Cr Clr Drug Dosing 69.5 Est GFR ( Amer) 78.6 Est GFR (Non-Af Amer) 67.8 BUN/Creatinine Ratio 12.7 Glucose 96 Calcium 8.2 L Medications Administered Current Inpatient Medications Acetaminophen (Tylenol) 650 mg PO Q4H PRN PRN Reason: Pain or Fever Stop: 02/08/19 05:31 Al Hydrox/Mg Hydrox/Simethicone (Maalox) 15 ml PO Q4H PRN PRN Reason: Dyspepsia Stop: 02/08/19 05:31 Amiodarone HCl (Cordarone) 400 mg PO BIDM [facility] Stop: 02/12/19 16:59 Last Admin: 01/15/19 08:05 Dose: 400 mg Documented by: Apixaban (Eliquis) 5 mg PO BID [facility] Stop: 02/08/19 08:59 Last Admin: 01/15/19 08:04 Dose: 5 mg Documented by: Budesonide (Pulmicort Respules) 0.5 mg INH BIDR [facility] Stop: 02/08/19 06:59 Last Admin: 01/15/19 06:56 Dose: 0.5 mg Documented by: Digoxin (Lanoxin) 0.125 mg PO DAILY@1600 [facility] Stop: 02/08/19 15:59 Last Admin: 01/14/19 16:23 Dose: 0.125 mg Documented by: Docusate Sodium (Colace) 100 mg PO DAILY [facility] Stop: 02/08/19 08:59 Last Admin: 01/15/19 08:04 Dose: 100 mg Documented by: Donepezil HCl (Aricept) 10 mg PO HS [facility] Stop: 02/08/19 20:59 Last Admin: 01/14/19 21:18 Dose: 10 mg Documented by: Furosemide 80 mg/ Syringe 8 mls @ 4 mls/min IV BID17 [facility] Stop: 02/12/19 16:59 Last Admin: 01/15/19 08:03 Dose: 4 mls/min Documented by: Levalbuterol HCl (Xopenex 1.25mg/0.5ml Neb) 1.25 mg NEB Q6R [facility] Stop: 02/11/19 13:59 Last Admin: 01/15/19 06:56 Dose: 1.25 mg Documented by: Magnesium Hydroxide (Milk Of Magnesia) 30 ml PO Q12H PRN PRN Reason: Constipation Stop: 02/08/19 05:31 Memantine (Namenda) 5 mg PO DAILY [facility] Stop: 02/08/19 08:59 Last Admin: 01/15/19 08:04 Dose: 5 mg Documented by: Metoprolol Succinate (Toprol Xl) 200 mg PO DAILY [facility] Stop: 02/08/19 08:59 Last Admin: 01/15/19 08:04 Dose: 200 mg Documented by: Metoprolol Tartrate (Lopressor) 5 mg IV Q4 PRN PRN Reason: Tachycardia Stop: 02/08/19 05:31 Miconazole Nitrate (Desenex) 1 appln EXT BID [facility] Stop: 02/08/19 20:59 Last Admin: 01/15/19 08:04 Dose: 1 appln Documented by: Mupirocin (Bactroban 2%) 1 appln EXT BID [facility] Stop: 02/10/19 14:39 Last Admin: 01/15/19 08:05 Dose: 1 appln Documented by: Polyethylene Glycol (Miralax Powder Packet) 17 gm PO DAILY PRN PRN Reason: Constipation Stop: 02/08/19 05:31 Potassium Chloride (Klor-Con M20) 40 meq PO TID [facility] Stop: 02/10/19 15:14 Last Admin: 01/15/19 08:03 Dose: 40 meq Documented by: Sertraline HCl (Zoloft) 50 mg PO DAILY [facility] Stop: 02/08/19 08:59 Last Admin: 01/15/19 08:05 Dose: 50 mg Documented by: Sodium Chloride ([place] Nasal) 2 sprays NA Q1H PRN PRN Reason: Nasal Congestion Stop: 02/10/19 14:44 PG Care Time/CCT Total # of Minutes Spent Total Time Spent with Patient: Total time spent is greater than 50% in coordination of care (as documented) at patient's floor/unit and/or counseling patient: (1) Diastolic congestive heart failure Heart failure chronicity: acute on chronic Qualified Code(s): I50.33 - Acute on chronic diastolic (congestive) heart failure (2) Acute and chronic respiratory failure Respiratory failure complication: hypoxia Qualified Code(s): J96.21 - Acute and chronic respiratory failure with hypoxia (3) A-fib Atrial fibrillation type: unspecified Qualified Code(s): I48.91 - Unspecified atrial fibrillation (4) Apnea, sleep Sleep apnea type: obstructive Qualified Code(s): G47.33 - Obstructive sleep apnea (adult) (pediatric) (5) Hypertension Hypertension type: essential hypertension Qualified Code(s): I10 - Essential (primary) hypertension (6) Asthma Asthma severity: unspecified severity Asthma persistence: unspecified Asthma complication type: uncomplicated Qualified Code(s): J45.909 - Unspecified asthma, uncomplicated (7) Alzheimers disease Alzheimer's disease onset: unspecified onset Dementia behavioral disturbance: without behavioral disturbance Qualified Code(s): G30.9 - Alzheimer's disease, unspecified; F02.80 - Dementia in other diseases classified elsewhere without behavioral disturbance (8) Depression Depression Type: other depression Qualified Code(s): F32.89 - Other specified depressive episodes
--- NOTE | 2019-01-15 12:26 | Cardiology Progress Note ---
Date of Service January 15, 2019 Assessment & Plan (1) AF (paroxysmal atrial fibrillation): She converted back to sinus rhythm early this morning. I think this supports a continued use of amiodarone. I will continue her on her current dose and after approximately 6 more days I think we can reduce her to 200 milligrams daily. Her overall rate control seems adequate. Her average heart rates however around 100. She does get higher rates at times and will continue to monitor this. Could also add diltiazem if necessary. She will continue her anticoagulation. (2) Diastolic congestive heart failure: She appears to be affecting a good diuresis on her current dose of diuretic. Renal function electrolytes appear to be stable. I would not have any objection if she were to be transferred off of the telemetry [place]. (3) Cardiac pacemaker: Normal function. Subjective The patient appeared more confused and agitated this morning. She continued to deny breathing trouble or symptoms of chest discomfort. Review of Systems Review of Systems: Unobtainable due to cognitive status Physical Exam Physical Exam: She is alert. Not oriented. Agitated. HEENT: Sclerae are anicteric. Pupils are equal and reactive to light and accommodation. Extraocular movements were intact. Neuro: Cranial nerves intact Lungs: Lungs are clear to auscultation bilaterally. There are no rales wheezes or rhonchi. She has normal respiratory effort without use of accessory muscles. There is normal pulmonary excursion. Cardiac: The rhythm was regular. S1 and S2 were normal. Abdomen: The abdomen was soft and nontender. Extremities: Patient has bilateral radial pulses that are equal in intensity. There is no evidence cyanosis or clubbing. Moderate lower extremity edema. Skin: There are no rashes noted on examination today. Results & Data Vital Signs (Past 12 Hours) Vital Signs Temp Pulse Pulse Resp BP BP Pulse Ox 01/15/19 10:39 36 C L 60 17 112/83 92 01/15/19 10:31 94 01/15/19 07:02 36.7 C 61 20 103/62 98 01/15/19 06:58 60 60 16 98 01/15/19 02:35 36.9 C 96 H 18 100/69 96 01/15/19 00:43 86 16 98 Laboratory Results Abnormal Lab Results 01/15/19 05:40 Sodium 143 Potassium 4.1 Chloride 105 Carbon Dioxide 28 Anion Gap 10.0 BUN 10 Creatinine 0.79 Est Cr Clr Drug Dosing 69.5 Est GFR ( Amer) 78.6 Est GFR (Non-Af Amer) 67.8 BUN/Creatinine Ratio 12.7 Glucose 96 Calcium 8.2 L PG Care Time/CCT Total # of Minutes Spent Total Time Spent with Patient: Total time spent is greater than 50% in coordination of care (as documented) at patient's floor/unit and/or counseling patient: (1) Diastolic congestive heart failure Heart failure chronicity: acute on chronic Qualified Code(s): I50.33 - Acute on chronic diastolic (congestive) heart failure
[2019-01-15] MEDS: DIGOXIN 0.125 MG TAB PO SCH (16:33)
[2019-01-15] MEDS: DONEPEZIL HCL 10 MG TAB PO SCH (20:23)
[2019-01-16] MEDS: LEVALBUTEROL 1.25MG/0.5ML NEB NEB SCH ×4 (01:02→19:50)
[2019-01-16] MEDS: BUDESONIDE 0.5 MG/2 ML VIAL (PULMICORT) INH SCH ×2 (07:12→19:50)
[2019-01-16] MEDS: MICONAZOLE NITRATE POWDER 43 GM EXT SCH ×2 (08:14→21:07)
[2019-01-16] MEDS: POTASSIUM CHLORIDE 20 MEQ TABCR PO SCH (08:14)
[2019-01-16] MEDS: AMIODARONE 200 MG TAB PO SCH ×2 (08:15→16:50)
[2019-01-16] MEDS: MUPIROCIN 2% OINT 22 GM TUBE EXT SCH (08:15)
[2019-01-16] MEDS: APIXABAN 5 MG TABLET PO SCH ×2 (08:15→21:05)
[2019-01-16] MEDS: METOPROLOL SUCC 50MG EXT REL TAB PO SCH (08:16)
[2019-01-16] MEDS: DOCUSATE SODIUM 100 MG CAP PO SCH (08:16)
[2019-01-16] MEDS: SERTRALINE HCL 50 MG TABLET PO SCH (08:16)
[2019-01-16] MEDS: MEMANTINE HCL 5 MG TAB PO SCH (08:16)
[2019-01-16] MEDS ORDERED: metOLazone 5 MG TABLET PO SCH (08:30)
[2019-01-16] MEDS: FUROSEMIDE 80 MG in SYRINGE 0 ML IV SCH ×2 (08:45→16:55)
[2019-01-16 09:36] LABS: BUN Creatinine Ratio 12.4 (10-20); Calcium 8.8 mg/dl (8.5-10.1); Est GFR (African American) 63.7; Est GFR (Non-African American) 54.9; Potassium 3.8 mmol/L (3.5-5.1)
--- NOTE | 2019-01-16 13:58 | Hospitalist Progress Note ---
Date of Service January 16, 2019 Assessment & Plan (1) Diastolic congestive heart failure: acute on chronic. likely exacerbated by rapid a.fib. continue lasix at 80mg IV BID, responding well Zaroxolyn 5mg in the AM today to help with diuresis, responding well repeat BMP in the AM, K is 3.8 this morning changed Amiodarone to 400mg PO BID on 01/13 daily weights, I/O's, etc. weight coming down to 124.8kg dry weight ~121kg. negative 6100cc for admission continue beta marquise. Dr. Cannon following, appreciate his input may be ready for discharge by tomorrow, more likely on Sunday (2) Acute and chronic respiratory failure: titrated down to room air on .2 no distress or increased work of breathing lungs without rales (3) A-fib: treated with amiodarone drip, Digoxin and metoprolol continue apixaban 5mg bid for anticoagulation cardiology, Dr. Cannon, has made orozco recommendations for her care; appreciate his assistance rates better controlled the past 72 hours, down to 60's, paced when she was on monitor changed Amiodarone to PO 01/13, continue Toprol 200mg, continue Digoxin will d/c albuterol; change to xopenex; this may help rates (4) Cardiac pacemaker: recent interrogation with good function pacing today at 60 (5) Apnea, sleep: cont night-time BIPAP (6) Hypertension: BPs controlled; transient hypotension at times but creatinine stable. (7) Asthma: wheezing on exam - suspect it is "Cardiac" wheezing (ie wheezes due to pulm edema). was recently treated for aspiration pneumonia and asthma flare earlier this month and had been on antibiotics / steroid taper. defer on such. treat underlying CHF. change duonebs to xopenex/atrovent - latter may be better for heart rate. (8) Situational anxiety: cont SSRI (9) Alzheimers disease: advanced cont namenda cont aricept (10) Depression: SSRI (11) Morbid obesity with BMI of 45.0-49.9, adult: BMI 45.5 (12) Hypokalemia: replaced and resolved K is 3.8 today will change KCl to 40mEq daily from TID repeat BMP tomorrow (13) DVT prophylaxis: apixaban BID PT, OT consults requested, at baseline, can return to [facility] assisted [facility] when medically stable likely needs 1-2 more days in hospital for diuresis, want her to be euvolemic on discharge will pull newell catheter tomorrow AM Subjective patient remains stable today she is eating well her labs show Cr stable, K is 3.8 she is diuresing more with Lasix 80mg IV and Zaroxolyn given this morning negative 6100cc for the admission, weight down to 124.8kg, getting closer to [facility] weight reviewed plan with CM, plan for [facility] on discharge will need newell removed prior to going may be ready tomorrow depending on diuresis Review of Systems Review of Systems: All systems reviewed & are unremarkable except as noted in HPI & below Respiratory: + dyspnea on exertion; no cough and no dyspnea Cardiovascular: + edema (trace bilaterally); no chest pain Gastrointestinal: no abdominal pain, no nausea, no vomiting, no constipation and no diarrhea/loose stools Physical Exam Constitutional: WD/WN, vitals as above + overweight Eyes: PERRL, conjunctivae normal, anicteric sclerae ENMT: external ear and nose normal, oropharynx normal Neck: trachea midline, no thyromegaly Respiratory: normal respiratory effort, lungs clear to auscultation Cardiovascular: Rate/Rhythm: regular rate and + irregularly irregular Heart Sounds: normal S1 and normal S2; no murmur Extremities: normal capillary refill and + edema (improved) Gastrointestinal (Abdomen): normal bowel sounds, soft, nontender, no hepatosplenomegaly Musculoskeletal: no cyanosis or clubbing, extremities motor strength 5/5 Skin: no rashes, warm and dry Neurologic: patellar DTR's 2+ bilat, sensation intact and PERRL, EOMI, accommodation nl, no face palsy, no dysarthria Psychiatric: Orientation: alert, oriented to person, oriented to place and cooperative; + not oriented to time Lymphatic: no cervical or axillary lymphadenopathy Results & Data Vital Signs (Past 12 Hours) Vital Signs Temp Pulse Pulse Resp BP Pulse Ox 01/16/19 13:33 62 20 92 01/16/19 13:05 36.6 C 62 20 91/56 L 96 01/16/19 07:15 60 18 93 01/16/19 07:09 36.5 C 60 18 105/66 91 Laboratory Results Laboratory Results - last 24 hr 01/16/19 08:48 Sodium 139 Potassium 3.8 Chloride 105 Carbon Dioxide 27 Anion Gap 7.0 BUN 12 Creatinine 0.94 Est Cr Clr Drug Dosing 58.0 Est GFR ( Amer) 63.7 Est GFR (Non-Af Amer) 54.9 BUN/Creatinine Ratio 12.4 Glucose 138 H Calcium 8.8 Medications Administered Current Inpatient Medications Acetaminophen (Tylenol) 650 mg PO Q4H PRN PRN Reason: Pain or Fever Stop: 02/08/19 05:31 Al Hydrox/Mg Hydrox/Simethicone (Maalox) 15 ml PO Q4H PRN PRN Reason: Dyspepsia Stop: 02/08/19 05:31 Amiodarone HCl (Cordarone) 400 mg PO BIDM [facility] Stop: 02/12/19 16:59 Last Admin: 01/16/19 08:15 Dose: 400 mg Documented by: Apixaban (Eliquis) 5 mg PO BID [facility] Stop: 02/08/19 08:59 Last Admin: 01/16/19 08:15 Dose: 5 mg Documented by: Budesonide (Pulmicort Respules) 0.5 mg INH BIDR [facility] Stop: 02/08/19 06:59 Last Admin: 01/16/19 07:12 Dose: 0.5 mg Documented by: Digoxin (Lanoxin) 0.125 mg PO DAILY@1600 [facility] Stop: 02/08/19 15:59 Last Admin: 01/15/19 16:33 Dose: 0.125 mg Documented by: Docusate Sodium (Colace) 100 mg PO DAILY [facility] Stop: 02/08/19 08:59 Last Admin: 01/16/19 08:16 Dose: 100 mg Documented by: Donepezil HCl (Aricept) 10 mg PO HS [facility] Stop: 02/08/19 20:59 Last Admin: 01/15/19 20:23 Dose: 10 mg Documented by: Furosemide 80 mg/ Syringe 8 mls @ 4 mls/min IV BID17 [facility] Stop: 02/12/19 16:59 Last Admin: 01/16/19 08:45 Dose: 4 mls/min Documented by: Levalbuterol HCl (Xopenex 1.25mg/0.5ml Neb) 1.25 mg NEB Q6R [facility] Stop: 02/11/19 13:59 Last Admin: 01/16/19 13:33 Dose: 1.25 mg Documented by: Magnesium Hydroxide (Milk Of Magnesia) 30 ml PO Q12H PRN PRN Reason: Constipation Stop: 02/08/19 05:31 Memantine (Namenda) 5 mg PO DAILY [facility] Stop: 02/08/19 08:59 Last Admin: 01/16/19 08:16 Dose: 5 mg Documented by: Metolazone (Zaroxolyn) 5 mg PO DAILY@0830 [facility] Stop: 02/15/19 08:29 Last Admin: 01/16/19 08:14 Dose: 5 mg Documented by: Metoprolol Succinate (Toprol Xl) 200 mg PO DAILY [facility] Stop: 02/08/19 08:59 Last Admin: 01/16/19 08:16 Dose: 200 mg Documented by: Metoprolol Tartrate (Lopressor) 5 mg IV Q4 PRN PRN Reason: Tachycardia Stop: 02/08/19 05:31 Miconazole Nitrate (Desenex) 1 appln EXT BID [facility] Stop: 02/08/19 20:59 Last Admin: 01/16/19 08:14 Dose: 1 appln Documented by: Mupirocin (Bactroban 2%) 1 appln EXT BID [facility] Stop: 02/10/19 14:39 Last Admin: 01/16/19 08:15 Dose: 1 appln Documented by: Polyethylene Glycol (Miralax Powder Packet) 17 gm PO DAILY PRN PRN Reason: Constipation Stop: 02/08/19 05:31 Potassium Chloride (Klor-Con M20) 40 meq PO QAM [facility] Stop: 02/15/19 08:59 Last Admin: 01/16/19 08:14 Dose: 40 meq Documented by: Sertraline HCl (Zoloft) 50 mg PO DAILY [facility] Stop: 02/08/19 08:59 Last Admin: 01/16/19 08:16 Dose: 50 mg Documented by: Sodium Chloride ([place] Nasal) 2 sprays NA Q1H PRN PRN Reason: Nasal Congestion Stop: 02/10/19 14:44 PG Care Time/CCT Total # of Minutes Spent Total Time Spent with Patient: Total time spent is greater than 50% in coordination of care (as documented) at patient's floor/unit and/or counseling patient: (1) Diastolic congestive heart failure Heart failure chronicity: acute on chronic Qualified Code(s): I50.33 - Acute on chronic diastolic (congestive) heart failure (2) Acute and chronic respiratory failure Respiratory failure complication: hypoxia Qualified Code(s): J96.21 - Acute and chronic respiratory failure with hypoxia (3) A-fib Atrial fibrillation type: unspecified Qualified Code(s): I48.91 - Unspecified atrial fibrillation (4) Apnea, sleep Sleep apnea type: obstructive Qualified Code(s): G47.33 - Obstructive sleep apnea (adult) (pediatric) (5) Hypertension Hypertension type: essential hypertension Qualified Code(s): I10 - Essential (primary) hypertension (6) Asthma Asthma severity: unspecified severity Asthma persistence: unspecified Asthma complication type: uncomplicated Qualified Code(s): J45.909 - Unspecified asthma, uncomplicated (7) Alzheimers disease Alzheimer's disease onset: unspecified onset Dementia behavioral disturbance: without behavioral disturbance Qualified Code(s): G30.9 - Alzheimer's disease, unspecified; F02.80 - Dementia in other diseases classified elsewhere without behavioral disturbance (8) Depression Depression Type: other depression Qualified Code(s): F32.89 - Other specified depressive episodes
[2019-01-16] MEDS: DIGOXIN 0.125 MG TAB PO SCH (16:44)
[2019-01-16] MEDS: DONEPEZIL HCL 10 MG TAB PO SCH (21:08)
[2019-01-17] MEDS: LEVALBUTEROL 1.25MG/0.5ML NEB NEB SCH ×4 (01:15→19:26)
[2019-01-17] MEDS: MUPIROCIN 2% OINT 22 GM TUBE EXT SCH ×4 (07:13→21:43)
[2019-01-17] MEDS: BUDESONIDE 0.5 MG/2 ML VIAL (PULMICORT) INH SCH ×2 (07:18→19:26)
[2019-01-17] MEDS: METOPROLOL SUCC 50MG EXT REL TAB PO SCH (08:19)
[2019-01-17] MEDS: AMIODARONE 200 MG TAB PO SCH ×2 (08:24→16:10)
[2019-01-17] MEDS: APIXABAN 5 MG TABLET PO SCH ×2 (08:25→20:10)
[2019-01-17] MEDS: DOCUSATE SODIUM 100 MG CAP PO SCH (08:25)
[2019-01-17] MEDS: MICONAZOLE NITRATE POWDER 43 GM EXT SCH ×2 (08:25→20:13)
[2019-01-17] MEDS: SERTRALINE HCL 50 MG TABLET PO SCH (08:25)
[2019-01-17] MEDS: POTASSIUM CHLORIDE 20 MEQ TABCR PO SCH ×3 (08:25→20:08)
[2019-01-17] MEDS: FUROSEMIDE 80 MG in SYRINGE 0 ML IV SCH (08:25)
[2019-01-17] MEDS: MEMANTINE HCL 5 MG TAB PO SCH (08:25)
[2019-01-17 08:59] LABS: BUN Creatinine Ratio 9.9 (10-20); Creatinine Clr Calc Pharmacy 62.2 ml/min; Est GFR (African American) 69.9; Est GFR (Non-African American) 60.3; Potassium 2.5 mmol/L (3.5-5.1)
--- NOTE | 2019-01-17 09:22 | Hospitalist Progress Note ---
Date of Service January 17, 2019 Assessment & Plan (1) Diastolic congestive heart failure: acute on chronic. likely exacerbated by rapid a.fib. treated with lasix 80mg IV BID, responded very well, especially after dose of Zaroxolyn 5mg on 01/16 nearly euvolemic, will change Lasix to 80mg PO daily, add back Zaroxolyn 2.5mg daily pull newell catheter later this afternoon K down to 2.5 with extra diuresis, will address changed Amiodarone to 400mg PO BID on 01/13 plan to change to 200mg daily per cardiology daily weights, I/O's, etc. weight coming down to 123kg dry weight ~121kg. negative 10,000cc for admission continue beta marquise. Dr. Cannon following, appreciate his input may be ready for discharge by tomorrow, more likely on Sunday (2) Acute and chronic respiratory failure: titrated down to room air on . no distress or increased work of breathing lungs without rales (3) A-fib: treated with amiodarone drip, Digoxin and metoprolol continue apixaban 5mg bid for anticoagulation cardiology, Dr. Cannon, has made orozco recommendations for her care; appreciate his assistance rates better controlled the past 72 hours, down to 60's, paced when she was on monitor occasionally jumps to 80-90 range changed Amiodarone to PO 01/13, will decrease dose to 200mg daily per cardiology continue Toprol 200mg, continue Digoxin will d/c albuterol; change to xopenex; this may help rates (4) Hypokalemia: down to 2.5 today after addition of Zaroxolyn yesterday hold Zaroxolyn today will increase K to 40mg TID from daily repeat in the AM (5) Cardiac pacemaker: recent interrogation with good function pacing today at 60 (6) Apnea, sleep: cont night-time BIPAP (7) Hypertension: BPs controlled; transient hypotension at times but creatinine stable. (8) Asthma: wheezing on exam - suspect it is "Cardiac" wheezing (ie wheezes due to pulm edema). was recently treated for aspiration pneumonia and asthma flare earlier this month and had been on antibiotics / steroid taper. defer on such. treat underlying CHF. change duonebs to xopenex/atrovent - latter may be better for heart rate. (9) Situational anxiety: cont SSRI (10) Alzheimers disease: advanced cont namenda cont aricept (11) Depression: SSRI (12) Morbid obesity with BMI of 45.0-49.9, adult: BMI 45.5 (13) DVT prophylaxis: apixaban BID PT, OT consults requested, at baseline, can return to [facility] assisted living when medically stable pull newell today, repeat labs tomorrow, approaching euvolemic state can likely go to [facility] tomorrow, will ask CM if that is possible Subjective patient breathing easy, says she is eating well, had a BM reviewed chart, negative over 10 liters now, weight down to 123kg Cr is holding, K low at 2.5 this morning reviewed plan with CM, will go back to [facility] once medically stable, likely ready tomorrow, need to fix potassium level no chest pain, no cough, no fever or chills, no nausea, no diarrhea Review of Systems Review of Systems: All systems reviewed & are unremarkable except as noted in HPI & below Physical Exam Constitutional: WD/WN, vitals as above + overweight Eyes: PERRL, conjunctivae normal, anicteric sclerae ENMT: external ear and nose normal, oropharynx normal Neck: trachea midline, no thyromegaly Respiratory: normal respiratory effort, lungs clear to auscultation Cardiovascular: Rate/Rhythm: regular rate and + irregularly irregular Heart Sounds: normal S1 and normal S2; no murmur Extremities: normal capillary refill and + edema (improved) Gastrointestinal (Abdomen): normal bowel sounds, soft, nontender, no hepatosplenomegaly Musculoskeletal: no cyanosis or clubbing, extremities motor strength 5/5 Skin: no rashes, warm and dry Neurologic: patellar DTR's 2+ bilat, sensation intact and PERRL, EOMI, accommodation nl, no face palsy, no dysarthria Psychiatric: Orientation: alert, oriented to person, oriented to place and cooperative; + not oriented to time Lymphatic: no cervical or axillary lymphadenopathy Results & Data Vital Signs (Past 12 Hours) Vital Signs Temp Pulse Pulse Resp BP Pulse Ox 01/17/19 07:18 82 18 92 01/17/19 07:00 36.8 C 102 H 18 96/57 L 92 01/17/19 01:36 92 H 16 91 01/17/19 01:15 92 H 16 91 01/16/19 23:01 36.4 C L 95 H 18 110/70 90 01/16/19 22:17 72 16 91 Laboratory Results Laboratory Results - last 24 hr 01/16/19 01/16/19 01/17/19 08:48 12:19 08:03 Sodium 139 136 Potassium 3.8 2.5 L* D Chloride 105 96 L Carbon Dioxide 27 34 H Anion Gap 7.0 6.0 BUN 12 9 Creatinine 0.94 0.87 Est Cr Clr Drug Dosing 58.0 62.2 Est GFR ( Amer) 63.7 69.9 Est GFR (Non-Af Amer) 54.9 60.3 BUN/Creatinine Ratio 12.4 9.9 L Glucose 138 H 102 H POC Glucose 121 H Calcium 8.8 9.0 Medications Administered Current Inpatient Medications Acetaminophen (Tylenol) 650 mg PO Q4H PRN PRN Reason: Pain or Fever Stop: 02/08/19 05:31 Al Hydrox/Mg Hydrox/Simethicone (Maalox) 15 ml PO Q4H PRN PRN Reason: Dyspepsia Stop: 02/08/19 05:31 Amiodarone HCl (Cordarone) 400 mg PO BIDM [facility] Stop: 02/12/19 16:59 Last Admin: 01/17/19 08:24 Dose: 400 mg Documented by: Apixaban (Eliquis) 5 mg PO BID [facility] Stop: 02/08/19 08:59 Last Admin: 01/17/19 08:25 Dose: 5 mg Documented by: Budesonide (Pulmicort Respules) 0.5 mg INH BIDR [facility] Stop: 02/08/19 06:59 Last Admin: 01/17/19 07:18 Dose: 0.5 mg Documented by: Digoxin (Lanoxin) 0.125 mg PO DAILY@1600 [facility] Stop: 02/08/19 15:59 Last Admin: 01/16/19 16:44 Dose: 0.125 mg Documented by: Docusate Sodium (Colace) 100 mg PO DAILY [facility] Stop: 02/08/19 08:59 Last Admin: 01/17/19 08:25 Dose: 100 mg Documented by: Donepezil HCl (Aricept) 10 mg PO HS [facility] Stop: 02/08/19 20:59 Last Admin: 01/16/19 21:08 Dose: 10 mg Documented by: Furosemide (Lasix) 80 mg PO DAILY [facility] Stop: 02/17/19 08:59 Levalbuterol HCl (Xopenex 1.25mg/0.5ml Neb) 1.25 mg NEB Q6R [facility] Stop: 02/11/19 13:59 Last Admin: 01/17/19 07:18 Dose: 1.25 mg Documented by: Magnesium Hydroxide (Milk Of Magnesia) 30 ml PO Q12H PRN PRN Reason: Constipation Stop: 02/08/19 05:31 Memantine (Namenda) 5 mg PO DAILY [facility] Stop: 02/08/19 08:59 Last Admin: 01/17/19 08:25 Dose: 5 mg Documented by: Metolazone (Zaroxolyn) 2.5 mg PO QAM [facility] Stop: 02/17/19 08:59 Metoprolol Succinate (Toprol Xl) 200 mg PO DAILY [facility] Stop: 02/08/19 08:59 Last Admin: 01/17/19 08:19 Dose: Not Given Documented by: Metoprolol Tartrate (Lopressor) 5 mg IV Q4 PRN PRN Reason: Tachycardia Stop: 02/08/19 05:31 Miconazole Nitrate (Desenex) 1 appln EXT BID [facility] Stop: 02/08/19 20:59 Last Admin: 01/17/19 08:25 Dose: 1 appln Documented by: Mupirocin (Bactroban 2%) 1 appln EXT BID [facility] Stop: 02/10/19 14:39 Last Admin: 01/17/19 08:25 Dose: 1 appln Documented by: Polyethylene Glycol (Miralax Powder Packet) 17 gm PO DAILY PRN PRN Reason: Constipation Stop: 02/08/19 05:31 Potassium Chloride (Klor-Con M20) 40 meq PO TID [facility] Stop: 02/16/19 13:59 Sertraline HCl (Zoloft) 50 mg PO DAILY [facility] Stop: 02/08/19 08:59 Last Admin: 01/17/19 08:25 Dose: 50 mg Documented by: Sodium Chloride ([place] Nasal) 2 sprays NA Q1H PRN PRN Reason: Nasal Congestion Stop: 02/10/19 14:44 PG Care Time/CCT Total # of Minutes Spent Total Time Spent with Patient: Total time spent is greater than 50% in coordination of care (as documented) at patient's floor/unit and/or counseling patient: (1) Diastolic congestive heart failure Heart failure chronicity: acute on chronic Qualified Code(s): I50.33 - Acute on chronic diastolic (congestive) heart failure (2) Acute and chronic respiratory failure Respiratory failure complication: hypoxia Qualified Code(s): J96.21 - Acute and chronic respiratory failure with hypoxia (3) A-fib Atrial fibrillation type: unspecified Qualified Code(s): I48.91 - Unspecified atrial fibrillation (4) Apnea, sleep Sleep apnea type: obstructive Qualified Code(s): G47.33 - Obstructive sleep apnea (adult) (pediatric) (5) Hypertension Hypertension type: essential hypertension Qualified Code(s): I10 - Essential (primary) hypertension (6) Asthma Asthma severity: unspecified severity Asthma persistence: unspecified Asthma complication type: uncomplicated Qualified Code(s): J45.909 - Unspecified asthma, uncomplicated (7) Alzheimers disease Alzheimer's disease onset: unspecified onset Dementia behavioral disturbance: without behavioral disturbance Qualified Code(s): G30.9 - Alzheimer's disease, unspecified; F02.80 - Dementia in other diseases classified elsewhere without behavioral disturbance (8) Depression Depression Type: other depression Qualified Code(s): F32.89 - Other specified depressive episodes
--- NOTE | 2019-01-17 15:01 | Heart Failure Progress Note ---
Date of Service January 17, 2019 Assessment & Plan (1) Diastolic congestive heart failure: (2) Hypokalemia: (3) Morbid obesity with BMI of 45.0-49.9, adult: (4) Alzheimers disease: (5) Atrial fibrillation with rapid ventricular response: Patient has improved and has effected a significant diuresis during her hospitalization. She has been transitioned to oral diuretics and continues to diurese. Kidney function has remained stable. She is significantly hypokalemic today. Replenish as necessary. Anticipate discharge on Lasix 80 mg and Metolazone 2.5 mg MWF. She will need close monitoring of her kidney function and electrolytes. She historically has not been actively participating in the CHF program due to her dementia. I spoke to her daughter Debbi today on the phone and discussed the nature of the program and ways we can be more involved with Desire's care. Plan to update her orders at [facility] to include heart healthy/low sodium diet if available, daily weights with faxes to CHF team once per week, notifications of weight gain or heart failure symptoms, and routine follow up. Debbi is very supportive and involved in Desire's care. She is more than willing to bring Desire to more frequent office visits. Outpatient follow up is scheduled for 01/27/19 at 10:30 am. Subjective Ms. Stover is feeling improved. She is negative 10 L this admission and is down to her dry weight of 270 lb. She reports improvement in her breathing and has no obvious shortness of breath during our visit. Her lower extremity edema is improving. Results & Data Vital Signs (Past 12 Hours) Vital Signs Temp Pulse Resp BP Pulse Ox 01/17/19 13:39 79 16 93 01/17/19 07:18 82 18 92 01/17/19 07:00 98.2 F 102 H 18 96/57 L 92 PG Care Time/CCT Total # of Minutes Spent Total Time Spent with Patient: Total time spent is greater than 50% in coordination of care (as documented) at patient's floor/unit and/or counseling patient: (1) Diastolic congestive heart failure Heart failure chronicity: acute on chronic Qualified Code(s): I50.33 - Acute on chronic diastolic (congestive) heart failure (2) Alzheimers disease Alzheimer's disease onset: unspecified onset Dementia behavioral disturbance: without behavioral disturbance Qualified Code(s): G30.9 - Alzheimer's disease, unspecified; F02.80 - Dementia in other diseases classified elsewhere without behavioral disturbance
[2019-01-17] MEDS: DIGOXIN 0.125 MG TAB PO SCH (16:10)
[2019-01-17] MEDS ORDERED: FUROSEMIDE 40 MG TAB PO SCH (17:00)
[2019-01-17] MEDS: DONEPEZIL HCL 10 MG TAB PO SCH (20:09)
[2019-01-18] MEDS: LEVALBUTEROL 1.25MG/0.5ML NEB NEB SCH ×3 (00:16→13:27)
[2019-01-18] MEDS: BUDESONIDE 0.5 MG/2 ML VIAL (PULMICORT) INH SCH (07:30)
[2019-01-18 08:16] LABS: BUN Creatinine Ratio 10.3 (10-20); Calcium 8.8 mg/dl (8.5-10.1); Creatinine Clr Calc Pharmacy 70.8 ml/min; Est GFR (African American) 82.3; Potassium 2.8 mmol/L (3.5-5.1)
[2019-01-18] MEDS: MUPIROCIN 2% OINT 22 GM TUBE EXT SCH (08:56)
[2019-01-18] MEDS ORDERED: FUROSEMIDE 80 MG TAB PO SCH (09:00)
[2019-01-18] MEDS ORDERED: metOLazone 2.5 MG TABLET PO SCH (09:00)
[2019-01-18] MEDS: APIXABAN 5 MG TABLET PO SCH (09:20)
[2019-01-18] MEDS: SERTRALINE HCL 50 MG TABLET PO SCH (09:20)
[2019-01-18] MEDS: METOPROLOL SUCC 50MG EXT REL TAB PO SCH (09:21)
[2019-01-18] MEDS: AMIODARONE 200 MG TAB PO SCH (09:23)
[2019-01-18] MEDS: MEMANTINE HCL 5 MG TAB PO SCH (09:23)
[2019-01-18] MEDS: MICONAZOLE NITRATE POWDER 43 GM EXT SCH (09:24)
[2019-01-18] MEDS: POTASSIUM CHLORIDE 20 MEQ TABCR PO SCH ×2 (09:25→13:55)
[2019-01-18] MEDS: DOCUSATE SODIUM 100 MG CAP PO SCH (09:45)
--- NOTE | 2019-01-18 11:36 | Cardiology Progress Note ---
Date of Service January 18, 2019 Assessment & Plan (1) Diastolic congestive heart failure: She has affected a good diuresis on her for O some wide and metolazone. Medications have been switched to an oral regimen. I think discharging on a current oral regimen would be reasonable. (2) Hypokalemia: (3) Morbid obesity with BMI of 45.0-49.9, adult: (4) Alzheimers disease: (5) Atrial fibrillation with rapid ventricular response: She continues to have some mildly elevated rates at times. However, she does cycle between sinus rhythm and atrial fibrillation. Hopefully with continued amiodarone use will see left cycling and perhaps improved rate control. I do not think this precludes her discharge. She has no symptoms from the atrial fibrillation otherwise. She will continue on her current anticoagulation. Subjective This morning the patient denied symptoms of pain or breathing difficulty. She cannot provide any additional meaningful history Review of Systems Review of Systems: Unobtainable due to cognitive status Physical Exam Physical Exam: She was easily arousable. She answered questions but not appropriately. She did follow commands appropriately. HEENT: Sclerae are anicteric. Pupils are equal and reactive to light and accommodation. Extraocular movements were intact. Neuro: Cranial nerves intact Lungs: Lungs are clear to auscultation bilaterally. There are no rales wheezes or rhonchi. She has normal respiratory effort without use of accessory muscles. There is normal pulmonary excursion. Cardiac: The rhythm was irregular. S1 and S2 were normal. There are no murmurs on examination. The PMI was not markedly displaced on palpation. Abdomen: Obese Extremities: Patient has bilateral radial pulses that are equal in intensity. Lower extremity edema noted. Skin: There are no rashes noted on examination today. Results & Data Vital Signs (Past 12 Hours) Vital Signs Temp Pulse Pulse Pulse Pulse Resp BP 01/18/19 10:06 36.7 C 60 113 H 78 18 110/79 01/18/19 07:31 113 H 18 01/18/19 07:06 36.7 C 103 H 22 01/18/19 00:19 90 18 01/17/19 23:55 91 H 19 BP Pulse Ox 01/18/19 10:06 101/61 92 01/18/19 07:31 92 01/18/19 07:06 101/61 92 01/18/19 00:19 91 01/17/19 23:55 91 Laboratory Results Abnormal Lab Results 01/18/19 07:29 Sodium 137 Potassium 2.8 L Chloride 97 L Carbon Dioxide 32 Anion Gap 8.0 BUN 8 Creatinine 0.76 Est Cr Clr Drug Dosing 70.8 Est GFR ( Amer) 82.3 Est GFR (Non-Af Amer) 71.0 BUN/Creatinine Ratio 10.3 Glucose 108 H Calcium 8.8 PG Care Time/CCT Total # of Minutes Spent Total Time Spent with Patient: Total time spent is greater than 50% in coordination of care (as documented) at patient's floor/unit and/or counseling patient: (1) Diastolic congestive heart failure Heart failure chronicity: acute on chronic Qualified Code(s): I50.33 - Acute on chronic diastolic (congestive) heart failure (2) Alzheimers disease Alzheimer's disease onset: unspecified onset Dementia behavioral disturbance: without behavioral disturbance Qualified Code(s): G30.9 - Alzheimer's disease, unspecified; F02.80 - Dementia in other diseases classified elsewhere without behavioral disturbance
--- NOTE | 2019-01-18 13:15 | Discharge Summary ---
Date of Service January 18, 2019 Admission HPI Per Admitting Provider Patient is a 88yo F PMH PAF (on xarelto), HTN, Severe dementia, depression, DCHF, emphysema, anxiety, tachybrady syndrome s/p pacemaker placement. HPI is provided by daughter, Debbi, who is a GI nurse. Patient is a resident at [facility]. She presents s/p unwitnessed fall; unknown if +LOC or if she hit her head. Daughter notes Desire has not been doing well since recent discharge on 12/17 for aspiration pneumonia. She notes increased peripheral edema, audible wheezing, and productive cough in the past week, and had set up a PCP appointment for her next week. On arrival to the emergency room she was found to be in A. fib with RVR. Chest x-ray revealed pulmonary edema. She was given 2 doses of Lopressor and upon my assessment her heart rate is controlled at 100 bpm. She was given 40 of IV Lasix and she is currently at 90% on 2 L nasal cannula. CBC and CMP were overall normal. CT head was reportedly normal however due to [employer] downtime this cannot be confirmed at time of dictation of this note. Principal Diagnosis Acute on chronic diastolic heart failure Discharge Exam Constitutional WD/WN, vitals as above + overweight Eyes PERRL, conjunctivae normal, anicteric sclerae ENMT external ear and nose normal, oropharynx normal Neck trachea midline, no thyromegaly Respiratory normal respiratory effort, lungs clear to auscultation Cardiovascular Rate/Rhythm: regular rate and + irregularly irregular Heart Sounds: normal S1 and normal S2; no murmur Extremities: normal capillary refill and + edema (improved) Gastrointestinal (Abdomen) normal bowel sounds, soft, nontender, no hepatosplenomegaly Musculoskeletal no cyanosis or clubbing, extremities motor strength 5/5 Skin no rashes, warm and dry Neurologic patellar DTR's 2+ bilat, sensation intact and PERRL, EOMI, accommodation nl, no face palsy, no dysarthria Psychiatric Orientation: alert, oriented to person, oriented to place and cooperative; + not oriented to time Lymphatic no cervical or axillary lymphadenopathy Discharge Data Allergies Allergy/AdvReac Type Severity Reaction Status Date / Time No Known Allergies Allergy Verified 01/09/19 03:30 Consultations 01/09/19 04:09 ED Decision to Admit Stat 01/09/19 05:32 Consult Case Management - Discharge Planning Routine 01/09/19 16:05 Consult Cardiology Routine Ordered Studies 01/09/19 01:16 CT head/brain wo con Urgent Hospital Course (1) Diastolic congestive heart failure: acute on chronic. likely exacerbated by rapid a.fib. treated with lasix 80mg IV BID, responded very well, especially after dose of Zaroxolyn 5mg on 01/16 now euvolemic, will change Lasix to 80mg PO daily, add back Zaroxolyn 2.5mg daily newell removed K down to 2.8 with extra diuresis, will address changed Amiodarone to 400mg PO BID on 01/13 plan to change to 200mg daily after 4 more days daily weights, I/O's, etc. weight coming down to 122kg negative 12,000cc for admission continue beta marquise. Dr. Cannon following, appreciate his input may be ready for discharge by tomorrow, more likely on Sunday (2) Acute and chronic respiratory failure: titrated down to room air on . no distress or increased work of breathing lungs without rales (3) A-fib: treated with amiodarone drip, Digoxin and metoprolol continue apixaban 5mg bid for anticoagulation cardiology, Dr. Cannon, has made orozco recommendations for her care; appreciate his assistance rates better controlled the past 4 days, down to 60's, paced when she was on monitor occasionally jumps to 90-100 range changed Amiodarone to PO 01/13, will decrease dose to 200mg daily after 4 more days continue Toprol 200mg, continue Digoxin (4) Hypokalemia: down at 2.8 today, was 2.5 the day before dropped due to aggressive diuresis prior to admission she was on 20mEq BID will increase to 40mEq BID for the weekend, recommend repeat BMP on Saturday 01/20 (5) Cardiac pacemaker: recent interrogation with good function pacing today at 60 (6) Apnea, sleep: cont night-time BIPAP (7) Hypertension: BPs controlled; transient hypotension at times but creatinine stable. (8) Asthma: wheezing on exam - suspect it is "Cardiac" wheezing (ie wheezes due to pulm edema). was recently treated for aspiration pneumonia and asthma flare earlier this month and had been on antibiotics / steroid taper. defer on such. treat underlying CHF. change duonebs to xopenex/atrovent - latter may be better for heart rate. (9) Situational anxiety: cont SSRI (10) Alzheimers disease: advanced cont namenda cont aricept (11) Depression: SSRI (12) Morbid obesity with BMI of 45.0-49.9, adult: BMI 45.5 (13) DVT prophylaxis: apixaban BID PT, OT consults requested, at baseline, can return to [facility] assisted living when medically stable script provided for PT/OT at [facility] Total Time Total Time Spent Total Time Spent (In Minutes): 32 minutes Total Time Includes: Examination of the Patient, Discharge Planning and Medication Reconciliation Discharge Plan Discharge Items Patient Disposition: Personal [facility] Reason For Visit: CHF EXACERBATION Discharge Diagnosis: Atrial fibrillation with RVR Acute on chronic diastolic heart failure Condition on Discharge: Good Goals: improve disease control, monitor daily weights for management of heart failure follow with Lynette QUIÑONES with heart failure clinic Activity: Resume your previous activity Non-emergency contact: Primary Care Provider and Automotive Services Manager Call non-emergency contact if: you have any medication questions, your symptoms worsen, your pain is not controlled and you have a fever Follow-up/Referrals: Lynette Alex PA-C [Physician Statistics Manager] - 01/27/19 10:30 am (Congestive Heart Failure Program Appointment Information Early follow up is essential to managing your heart failure. An appointment has been scheduled for you with the [facility] Heart Failure Program within 7 days of discharge. Anticipate this visit to be 30-60 minutes long. Please expect a marine resource economist phone call from one of our nurses approximately 48 hours from discharge. They will also be placing an order for lab work to be completed 1-2 days prior to your heart failure follow up appointment. Please be sure to have this done so we can go over the results when you come in. Office Location The cardiology office building is located in front of the hospital at [address] Bring the following with you to your follow-up doctor appointments: Please bring your daily weight log any discharge paperwork all of your medication bottles with you to this visit. ) Chantell, [Primary Care Provider] - Diet: Heart Healthy Fluids: 2000ml (8 cups) Addtl Attending Provider Instructions: Medications: - AMIODARONE: new medication prescribed by Dr. Cannon, he recommends taking 400mg twice a day for 4 more days after 4 days you should reduce dose to 200mg daily and continue that indefinitely - TOPROL: dose increased to 200mg daily from 150mg daily - LASIX: 80mg daily, this replaces Torsemide - POTASSIUM: increase dose from 20mEq twice a day to 40mEq twice a day, continue this for three days, recommend checking BMP on Sunday01/20/19 if potassium is normal then resume 20mEq twice a day, management per medical resident at [facility] Acute on chronic diastolic heart failure, likely due to rapid ventricular response with afib heart rates are better, will occasionally be elevated in the morning prior to medications but they slow down, will be paced at 60 often during the day continue Amiodarone 400mg twice a day for 4 more days then reduce to 200mg daily continue Toprol 200mg daily, continue Apixaban for full anticoagulation diuresed 12 liters while here on lasix 80mg IV BID and Zaroxolyn, weight down to 122kg from 128kg breathing better, minimal edema in legs (at baseline) patient needs to be weighed EVERY morning, if weight goes up by 2-3 lbs from baseline then call heart failure clinic follow fluid restriction of 2 liters a day follow low salt diet Addtl [employer]fg Assoc Provider Instructions: Call your Primary Care doctor if any of the following symptoms or problems start or get worse: * Shortness of breath or difficulty breathing * Wake up at night short of breath * Chest pain * Cough * Swelling of your hands, feet, or legs * More fatigued or tired with your normal activity * Palpitations - sudden fast heart beats WEIGHT * Weigh yourself every morning after using the bathroom. * Use the same scale. * Wear the same amount of clothing. * Write your weight down on a chart. * Call your Primary Care doctor if you gain more than 2-3 pounds in 1-2 days. MEDICATIONS * Use this discharge instruction sheet for medication instructions. * Take your medications at the time your doctor ordered. * Do not skip a dose of your medicines. * If you miss a dose of medicine, take it as soon as possible, but DO NOT DOUBLE A DOSE. * Read your medicine information when you get home. * Know all of the side effects of your medicine. If in doubt, ask your pharmacist * Call your Primary Care doctor's office if you have any side effects. * Be sure all of your doctors know what medicine and herbs you take (including cold, flu, and herbal medicine). Take the following with you to your follow-up doctor appointments: * Weight Chart * Medication List * List of questions Do not drink excessive alcohol, beer or wine. -HEART HEALTHY DIET, LESS THAN 2,000 MG SODIUM/DAY - FLUID RESTRICTION, LESS THAN 1500 ML/DAY - DAILY STANDING WEIGHTS. PLEASE FAX WEEKLY REPORT TO CHF TEAM, ATTN JENNY AT [phone]. - PLEASE NOTIFY CHF TEAM FOR 2+ LB WEIGHT GAIN OVERNIGHT OR 5+ LB WEIGHT GAIN IN 1 WEEK. JENNY [phone] -FOLLOW UP WITHIN 7 DAYS OF DISCHARGE, 01/27 AT 10:30 AM. Pending Studies at Discharge: No Stand-Alone Forms: My [facility] Skilled Items Patient informed of condition?: Yes DNR: Yes Discharge Level of Care: Other Communicable Disease: No Discharge Prognosis: Stable Lines: None Urinary Catheter: No Medications and DC Order Prescriptions: New metoprolol succinate 50 mg Tablet Extended Release 24 Hr 200 mg PO DAILY 30 Days Qty: 120 RF: 0 potassium chloride [Klor-Con M20] 20 mEq Tablet,Er Particles/Crystals 40 meq PO BID 7 Days Qty: 28 RF: 0 furosemide 80 mg Tablet 80 mg PO DAILY 30 Days Qty: 30 RF: 1 amiodarone 200 mg Tablet 200 mg PO DAILY 30 Days Qty: 30 RF: 1 Continued memantine [Namenda] 5 mg tablet 5 mg PO DAILY Qty: 90 RF: 1 acetaminophen 500 mg capsule 500 mg PO Q4H PRN (Reason: Pain/fever) RF: 0 Eliquis 5 mg Tablet 5 mg PO BID Qty: 60 RF: 0 digoxin 125 mcg Tablet 0.125 mg PO DAILY@1600 Qty: 30 RF: 0 loperamide 2 mg Capsule 2 mg PO Q4 PRN (Reason: Diarrhea) RF: 0 donepezil [Aricept] 10 mg tablet 10 mg PO HS RF: 0 budesonide [Pulmicort] 0.5 mg/2 mL suspension for nebulization 1 vial Inhalation BID RF: 0 nystatin 100,000 unit/gram Powder 1 applic TOPICAL TID PRN (Reason: Rash) RF: 0 sertraline [Zoloft] 50 mg tablet 50 mg PO DAILY RF: 0 potassium chloride [Klor-Con M20] 20 mEq tablet,ER particles/crystals 20 meq PO BID Qty: 60 RF: 1 docusate sodium 100 mg Tablet 100 mg PO DAILY RF: 0 Breo Ellipta 200-25 mcg/dose Blister With Device 1 inh INHALATION DAILY RF: 0 calcium carbonate-vitamin D3 [Oyster Shell + D3] 250-125 mg-unit Tablet 1 tab PO DAILY RF: 0 metolazone 2.5 mg Tablet 2.5 mg PO DAILY RF: 0 ondansetron HCl [Zofran] 4 mg Tablet 4 mg PO Q4H PRN (Reason: Nausea) RF: 0 albuterol sulfate 0.63 mg/3 mL Solution For Nebulization 0.63 mg INHALATION QID PRN (Reason: Wheezing) RF: 0 diphenhydramine HCl [Benadryl] 25 mg Capsule 25 mg PO Q8H PRN (Reason: Itching) RF: 0 Discontinued metoprolol succinate [Toprol XL] 50 mg tablet extended release 24 hr 150 mg PO DAILY Qty: 0 RF: 0 torsemide 20 mg tablet 40 mg PO DAILY Qty: 180 RF: 5 Discharge Orders: Discharge Order (Routine); Ordered 01/18/19 Ordered By: Pedro Lind Admission Data Admit Date/Time: 01/09/19 03:42 Attending Provider: Pedro Lind Admit Provider: Cat Marshall Primary Care Provider: Chantell, Other Providers: Jane Ramos Christophe W. Other Interventions: Discharge Summary Assessment (RN) Last Done: 01/18/19 10:06
[2019-01-19] MEDS ORDERED: AMIODARONE 200 MG TAB PO SCH (09:00)
== END 2019-01-18 14:31 | disposition home or self-care (01) | DRG 291 ==
LOC: ED 00:38 → SUATTDRO 03:42 → 2E 03:42 → 2W 01-15 11:00

== ENCOUNTER 2019-04-22 11:36 | Inpatient (IN) ==
--- NOTE | 2019-04-22 12:43 | XRay Report ---
XR chest 1V portable CLINICAL HISTORY: 89 years-old Female presenting with Dyspnea. TECHNIQUE: Portable upright AP view of the chest was obtained. COMPARISON: 01/28/2019. FINDINGS: Left subclavian pacer with leads in the right atrium and right ventricular apex. Atherosclerosis of t he aortic arch. Cardiac silhouette moderately enlarged as on prior exam. Pulmonary vascular prominenc e and interstitial prominence overall mild and similar to prior. Mildly low lung volumes. No focal op acity. No large effusion or pneumothorax. Osteopenia may be present. Posttraumatic deformity of the l eft humerus unchanged. Upper abdomen normal. IMPRESSION: 1. Cardiomegaly with mild volume overload and congestive change. No branden pulmonary edema. This is s imilar to prior. 2. Mildly low lung volumes. ACT 112: Negative or not required by law. Electronically signed by: Eugene Peralta M.D. 04/22/2019 12:42 PM
[2019-04-22] MEDS ORDERED: SODIUM CHLORIDE 0.9% 1000ML 1,000 ML IV ONE (15:04)
[2019-04-22 15:43] LABS: INR 1.2 (0.9-1.1); Partial Thromboplastin Ratio 1.1; Partial Thromboplastin Time 29.2 Seconds (21.0-31.0); Prothrombin Time 12.4 Seconds (9.0-12.0)
[2019-04-22 15:50] LABS: Albumin Level 2.8 gm/dl (3.4-5.0); BUN Creatinine Ratio 9.6 (10-20); Calcium 8.9 mg/dl (8.5-10.1); Creatinine Clr Calc Pharmacy 26.8 ml/min; Potassium 3.3 mmol/L (3.5-5.1)
[2019-04-22 15:56] LABS: Albumin Globulin Ratio 0.7 (0.9-2); Bilirubin,Total 0.4 mg/dl (0.2-1); Globulin 3.8 gm/dl (2.5-4.0); Total Protein 6.6 gm/dl (6.4-8.2); Troponin I 0.032 ng/ml (0-0.045)
[2019-04-22 16:07] LABS: Appearance Urine Clear (Clear); Bilirubin Urine Negative (Negative); Blood Urine Negative (Negative); Color Urine Yellow; Glucose Urine UA Negative (Negative); Ketones Urine Negative (Negative); Leukocyte Esterase Urine Negative (Negative); Nitrite Urine Negative (Negative); Protein Urine Negative (Negative); Specific Gravity Urine 1.009 (1.000-1.030); Urobilinogen Urine Negative (Negative); pH Urine 7.5 (4.5-7.5)
--- NOTE | 2019-04-22 16:12 | Electrocardiogram Report ---
Test Reason : Blood Pressure : / mmHG Vent. Rate : 060 BPM Atrial Rate : 059 BPM P-R Int : 414 ms QRS Dur : 102 ms QT Int : 418 ms P-R-T Axes : 000 057 -85 degrees QTc Int : 418 ms Atrial-paced rhythm with prolonged AV conduction Abnormal ECG When compared with ECG of 28-JAN-2019 05:42, Electronic atrial pacemaker has replaced Atrial fibrillation Vent. rate has decreased BY [address] now depressed in Lateral leads T wave inversion now evident in Anterolateral leads Confirmed by Nabor Jaramillo ([id number]) on 04/22/2019 4:11:55 PM [facility] Confirmed By:Nabor Jaramillo
[2019-04-22 16:42] LABS: Basophils # (auto) 0.04 K/uL (0-0.2); Basophils % (auto) 0.5 %; Eosinophils # (auto) 0.34 K/uL (0-0.5); Eosinophils % (auto) 3.9 %; Hematocrit (blood only) 43.4 % (37-47); Hemoglobin 13.8 g/dL (12.0-16.0); Immature Granulocytes # (auto) 0.04 K/uL (0.00-0.02); Immature Granulocytes % (auto) 0.5 %; Lymphocytes # (auto) 2.15 K/uL (1.2-3.4); Lymphocytes % (auto) 24.9 %; Mean Corpuscular Hemoglobin 31.9 pg (25-34); Mean Corpuscular Hgb Conc 31.8 g/dL (32-36); Mean Corpuscular Volume 100.5 fL (80-100); Mean Platelet Volume 10.7 fL (7.4-10.4); Monocytes # (auto) 0.83 K/uL (0.11-0.59); Monocytes % (auto) 9.6 %; Neutrophils # (auto) 5.22 K/uL (1.4-6.5); Neutrophils % (auto) 60.6 %; Platelet Count 170 K/uL (130-400); RDW Coefficient of Variation 16.4 % (11.5-14.5); RDW Standard Deviation 60.5 fL (36.4-46.3); Red Blood Count 4.32 M/uL (4.2-5.4); White Blood Count 8.62 K/uL (4.8-10.8)
--- NOTE | 2019-04-22 19:14 | Emergency Department Note ---
Entered by Margarita Bowles acting as a scribe for Jefferson Lopez DO History of Present Illness General Chief complaint: Illness Source: patient History of Present Illness Provider complaint: hypoxia Onset (ago): minute(s) (prior to arrival) Location: chest Pain Consistency: + now resolved Maximum Pain Intensity: 0 Quality: + other (hypoxia ) Associated symptoms: + other (Positive fall; Negative dysuria; Negative abdominal pain; Negative neck pain; ); no chest pain, no headaches and no shortness of breath The patient, who is a 89 year old female with a medical history of aspiration pneumonia, urinary incontinence and Alzheimer's disease, presents to the Emergency Room with observed complaints of low oxygen levels and weakness that started prior to arrival. The caregivers at the patient's nursing facility were also concerned for build up of fluids. The patient's daughter states that her fdc informed her that the patient had low oxygen levels towards the 70s and was very lethargic/boarder line unresponsive. EMS reports that during tr ansport the patient had oxygen levels of 95. The patient's daughter states that the patient wears oxygen only at night. The patient' mother expresses that the patient had a fall a week and 1/2 ago. The patient denies headache, neck pain, chest pain, abdominal pain, dysuria, or shortness of breath. The patient's daughter confirms that the patient is on Eliquis and Digoxin. The patient's mother states that the patient started a new thyroid medication. Home Medications Home Medications Medication Instructions Recorded Confirmed Type donepezil [Aricept] 10 mg PO HS 06/20/18 04/22/19 History loperamide 2 mg PO Q4 PRN 06/20/18 04/22/19 History nystatin 1 applic TOPICAL TID PRN 06/20/18 04/22/19 History acetaminophen 500 mg capsule 500 mg PO Q4H PRN MDD 3 GRAMS/24 01/03/19 04/22/19 History HOURS diphenhydramine HCl [Benadryl] 25 mg PO Q6 PRN 01/09/19 04/22/19 History ondansetron HCl [Zofran] 4 mg PO Q4H PRN 01/09/19 04/22/19 History docusate sodium 100 mg capsule 100 mg PO BID PRN 01/22/19 04/22/19 History albuterol sulfate 2.5 mg INHALATION QID PRN 01/28/19 04/22/19 History amiodarone 200 mg PO QAM 01/28/19 04/22/19 History bisacodyl 10 mg DC DAILY PRN 01/28/19 04/22/19 History memantine [Namenda] 5 mg PO QAM 01/28/19 04/22/19 History sennosides [senna] 8.6 mg PO DAILY PRN 01/28/19 04/22/19 History sodium phosphates [Fleet Enema] 118 ml DC DAILY PRN 01/28/19 04/22/19 History furosemide 80 mg tablet 80 mg PO BID tab 01/30/19 04/22/19 History ipratropium 0.5 mg-albuterol 3 mg 3 ml INHALATION Q6 PRN #90 ml 02/03/19 04/22/19 Rx (2.5 mg base)/3 mL nebulization soln apixaban 5 mg tablet 5 mg PO BID #60 tab 02/04/19 04/22/19 Rx fluticasone furoate 200 1 inh INHALATION DAILY #60 ea 02/05/19 04/22/19 Rx mcg-vilanterol 25 mcg/dose inhalation powder digoxin 125 mcg (0.125 mg) tablet 0.125 mcg PO QAM #30 tab 02/10/19 04/22/19 Rx metoprolol succinate 200 mg 200 mg PO QAM #30 tab 02/11/19 04/22/19 Rx tablet,extended release 24 hr potassium chloride 20 mEq 40 meq PO TID #180 tab 02/11/19 04/22/19 Rx tablet,extended release(part/cryst) spironolactone 25 mg tablet 25 mg PO DAILY #15 tab 03/05/19 04/22/19 Rx omeprazole 20 mg capsule,delayed 20 mg PO DAILY #30 cap 03/17/19 04/22/19 Rx release sertraline 100 mg tablet 100 mg PO QAM #30 tab 03/17/19 04/22/19 Rx levothyroxine 25 mcg tablet 25 mcg PO DAILY #30 tab 04/04/19 04/22/19 Rx budesonide 2 ml INHALATION BID 04/22/19 04/22/19 History calcium carbonate-vitamin D3 1 tab PO DAILY 04/22/19 04/22/19 History [Oyster Shell Calcium-Vit D3] metolazone 2.5 mg PO 3XWK 04/22/19 04/22/19 History Allergies Allergy/AdvReac Type Severity Reaction Status Date / Time No Known Drug Allergies Allergy Verified 04/22/19 13:29 Past Med/Surg History Medical History AF (paroxysmal atrial fibrillation) (Chronic) Alzheimers disease (Chronic) Apnea, sleep (Chronic) Asthma (Chronic) Atrial fibrillation with rapid ventricular response (Resolved) Cardiac pacemaker (Chronic) Dementia Depression (Chronic) Diastolic congestive heart failure (Chronic) Diastolic dysfunction (Chronic) DVT prophylaxis (Resolved) Enterococcal bacteremia (Resolved) Glaucoma High cholesterol Hypertension (Chronic) Hypokalemia (Resolved) Hypokalemia (Chronic) Hypothyroidism 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) Obesity Situational anxiety (Chronic) Urinary incontinence (Chronic) Surgical History History of arthroscopic knee surgery History of eye surgery History of permanent cardiac pacemaker placement History of umbilical hernia repair Social History Preferred Language: Mexican Communication Ability: Effective Sailmaker Required: No Beliefs That Will Affect Care: None Current Living Situation: Senior Living Current Living Situation Comment: [place] Feels Safe at Home: Yes Smoking Status: Never smoker Hx Alcohol Use: No Hx Substance Use: No Review of Systems See HPI for pertinent positives & negatives. and A total of 10 systems reviewed and were otherwise negative Physical Exam Vital Signs Vital Signs - 24 hr 04/22/19 11:35 04/22/19 13:35 04/22/19 15:00 Temperature 36.7 C Temperature Source Oral Pulse Rate 61 Pulse Rate [Apical] 64 60 Pulse Rhythm Regular Pulse Rhythm [Apical] Regular Pulse Strength Normal Pulse Strength [Apical] Respiratory Rate 16 16 18 Respiratory Effort / Characteristics Non-Labored Spontaneous Non-Labored Non-Labored Respiratory Depth Normal Normal Normal Respiratory Pattern Regular Blood Pressure 126/94 Blood Pressure [Right Arm] 126/94 100/48 L Blood Pressure Mean 104 Blood Pressure Mean [Right Arm] 104 65 Blood Pressure Position Lying Blood Pressure Position [Right Arm] Lying Pulse Oximetry 95 97 99 Oxygen Delivery Method Room Air Room Air Room Air 04/22/19 17:00 04/22/19 19:00 Temperature Temperature Source Pulse Rate Pulse Rate [Apical] 60 60 Pulse Rhythm Pulse Rhythm [Apical] Regular Regular Pulse Strength Pulse Strength [Apical] Normal Respiratory Rate 13 17 Respiratory Effort / Characteristics Non-Labored Spontaneous Non-Labored Spontaneous Respiratory Depth Normal Normal Respiratory Pattern Regular Regular Blood Pressure Blood Pressure [Right Arm] 112/53 L 162/116 H Blood Pressure Mean Blood Pressure Mean [Right Arm] 72 131 Blood Pressure Position Blood Pressure Position [Right Arm] Lying Lying Pulse Oximetry 94 95 Oxygen Delivery Method Room Air Room Air GENERAL: obese, sitting up in bed, disheveled, following commands EYE EXAM: normal conjunctiva, OROPHARYNX: no exudate, no erythema, lips, buccal mucosa, and tongue normal and mucous membranes are moist NECK: supple, no nuchal rigidity, no adenopathy, non-tender LUNGS: Distant, Clear to auscultation. Normal chest wall mechanics HEART: distant, no murmurs, S1 normal and S2 normal ABDOMEN: abdomen soft, non-tender, normo-active bowel sounds, no masses, no rebound or guarding. BACK: Back is symmetrical on inspection and there is no deformity, no midline tenderness, no CVA tenderness. SKIN: no rashes and no bruising UPPER EXTREMITIES: upper extremities are grossly normal. LOWER EXTREMITIES: mild pitting edema NEURO EXAM: Awake, alert, following commands, moving all extremities, nonfocal Course Course ED COURSE: Vital signs were reviewed and showed normotensive The patients medical record was reviewed The above diagnostic studies were performed and reviewed. ED treatments and interventions as stated above. 1214: The patient was evaluated in room C4. A complete history and physical examination was performed. 1447: I reassessed that patient and called the nurse to do bloodwork on the patient. 1553: I reassessed the patient and updated her on her results so far. 1605: I reviewed the patient's case with Dr. Lilly, [facility] Hospitalist. She will evaluate the patient for further management. 1610: Upon reevaluation, the patient is resting.I discussed my findings with the patient and she understands and agrees with the treatment plan. 1652: I touched base with Dr. Lilly and the patient is being further evaluated at this time. Based on the patients age, coexisting illnesses, exam and lab findings the decision to treat as an inpatient was made. The patient remained stable while under my care. The patient will be evaluated for further management. Consultations Consultation #1: I reviewed the patient's case with Dr. Lilly, [facility] Hospita list. She will evaluate the patient for further management. Time: 16:05 Administered Medications Discontinued Medications Sodium Chloride (Nss 1000ml) 1,000 mls @ 999 mls/hr IV .Q1H1M ONE Stop: 04/22/19 16:04 Last Infusion: 04/22/19 17:05 Dose: 0 mls/hr Documented by: [id number] Admin: 04/22/19 15:10 Dose: 999 mls/hr Documented by: [id number] Medical Decision Making Differential Diagnosis Differential diagnoses includes but is not limited to pneumonia, bronchitis, COPD/Asthma exacerbation, pneumothorax, pulmonary embolism, congestive heart failure, acute coronary syndrome Medical Records Attestation: I reviewed the patient's medical records. Home Medications Current Medication List: was personally reviewed by me Laboratory Data Attestation: I reviewed the patient's lab results. Result diagrams: 04/22/19 16:32 04/22/19 15:19 Lab Results 04/22/19 04/22/19 04/22/19 Range/Units 15:19 15:19 15:19 WBC Cancelled RBC Cancelled Hgb Cancelled Hct Cancelled MCV Cancelled MCH Cancelled MCHC Cancelled RDW Std Deviation Cancelled RDW Coeff of [place] Cancelled Plt Count Cancelled MPV Cancelled Immature Gran % (Auto) Cancelled Neut % (Auto) Cancelled Lymph % (Auto) Cancelled Amelia % (Auto) Cancelled Eos % (Auto) Cancelled Baso % (Auto) Cancelled Immature Gran # (Auto) Cancelled Neut # (Auto) Cancelled Lymph # (Auto) Cancelled Amelia # (Auto) Cancelled Eos # (Auto) Cancelled Baso # (Auto) Cancelled Absolute Nucleated RBC Cancelled Nucleated RBC % (auto) Cancelled Neutrophils % (Manual) Cancelled Band Neutrophils % Cancelled Lymphocytes % (Manual) Cancelled Prolymphocyte % Cancelled Reactive Lymphs % (Man) Cancelled Monocytes % (Manual) Cancelled Eosinophils % (Manual) Cancelled Basophils % (Manual) Cancelled Metamyelocytes % (Man) Cancelled Myelocytes % (Man) Cancelled Promyelocytes % (Man) Cancelled Blast Cells % (Manual) Cancelled Plasma Cell % (Manual) Cancelled Other Cells % Cancelled Nucleated RBC % Cancelled Neutrophils # (Manual) Cancelled Band Neutrophils # Cancelled Total Absolute Neuts Cancelled Lymphocytes # (Manual) Cancelled Prolymphocyte # Cancelled Reactive Lymphs # Cancelled Total Abs Lymphocytes Cancelled Monocytes # (Manual) Cancelled Eosinophils # (Manual) Cancelled Basophils # (Manual) Cancelled Metamyelocytes # (Man) Cancelled Myelocytes # (Manual) Cancelled Promyelocytes # (Man) Cancelled Blast Cells # (Man) Cancelled Plasma Cell # (Manual) Cancelled Other Cells # Cancelled Nucleated RBCs # (Man) Cancelled Hypersegmented Neuts Cancelled Hyposegmented Neuts Cancelled Hypogranular Neuts Cancelled Large Granular Lymphs Cancelled # Lrg Granular Lymphs Cancelled Hairy Cells Cancelled Smudge Cells Cancelled Toxic Granulation Cancelled Toxic Vacuolation Cancelled Dohle Bodies Cancelled Herminia Rods Cancelled Platelet Estimate Cancelled Hypogranular Platelets Cancelled Clumped Platelets Cancelled Giant Platelets Cancelled Platelet Satelliting Cancelled RBC Morphology Cancelled Polychromasia Cancelled Hypochromasia Cancelled Poikilocytosis Cancelled Basophilic Stippling Cancelled Anisocytosis Cancelled Microcytosis Cancelled Macrocytosis Cancelled Spherocytes Cancelled Pappenheimer Bodies Cancelled Sickle Cells Cancelled Target Cells Cancelled Tear Drop Cells Cancelled Ovalocytes Cancelled Stomatocytes Cancelled [place] Bodies Cancelled Echinocytes Cancelled Acanthocytes (Spur) Cancelled Rouleaux Cancelled RBC Agglutinates Cancelled Schistocytes Cancelled RBC Morph Comment Cancelled Sezary Cell Cancelled PT 12.4 H (9.0-12.0) Seconds INR 1.2 H (0.9-1.1) APTT 29.2 (21.0-31.0) Seconds PTT Ratio 1.1 Sodium 142 (136-145) mmol/L Potassium 3.3 L (3.5-5.1) mmol/L Chloride 104 (98-107) mmol/L Carbon Dioxide 31 (21-32) mmol/L Anion Gap 7.0 (3-11) BUN 17 (7-18) mg/dl Creatinine 1.79 H (0.6-1.2) mg/dl Est Cr Clr Drug Dosing 26.8 ml/min Est GFR ( Amer) 29.0 Est GFR (Non-Af Amer) 25.0 BUN/Creatinine Ratio 9.6 L (10-20) Glucose 120 H (70-99) mg/dl Calcium 8.9 (8.5-10.1) mg/dl Total Bilirubin 0.4 (0.2-1) mg/dl AST 52 H (15-37) U/L ALT 25 (12-78) U/L Alkaline Phosphatase 51 (45-117) U/L Troponin I 0.032 (0-0.045) ng/ml Total Protein 6.6 (6.4-8.2) gm/dl Albumin 2.8 L (3.4-5.0) gm/dl Globulin 3.8 (2.5-4.0) gm/dl Albumin/Globulin Ratio 0.7 L (0.9-2) Urine Color Urine Appearance (Clear) Urine pH (4.5-7.5) Ur Specific [place] (1.000-1.030) Urine Protein (Negative) Urine Glucose (UA) (Negative) Urine Ketones (Negative) Urine Blood (Negative) Urine Nitrite (Negative) Urine Bilirubin (Negative) Urine Urobilinogen (Negative) Ur Leukocyte Esterase (Negative) Digoxin (0.8-2.0) ng/ml 04/22/19 04/22/19 04/22/19 Range/Units 15:19 15:55 16:32 WBC 8.62 RBC 4.32 Hgb 13.8 Hct 43.4 MCV 100.5 H MCH 31.9 MCHC 31.8 L RDW Std Deviation 60.5 H RDW Coeff of [place] 16.4 H Plt Count 170 MPV 10.7 H Immature Gran % (Auto) 0.5 Neut % (Auto) 60.6 Lymph % (Auto) 24.9 Amelia % (Auto) 9.6 Eos % (Auto) 3.9 Baso % (Auto) 0.5 Immature Gran # (Auto) 0.04 H Neut # (Auto) 5.22 Lymph # (Auto) 2.15 Amelia # (Auto) 0.83 H Eos # (Auto) 0.34 Baso # (Auto) 0.04 Absolute Nucleated RBC Nucleated RBC % (auto) Neutrophils % (Manual) Band Neutrophils % Lymphocytes % (Manual) Prolymphocyte % Reactive Lymphs % (Man) Monocytes % (Manual) Eosinophils % (Manual) Basophils % (Manual) Metamyelocytes % (Man) Myelocytes % (Man) Promyelocytes % (Man) Blast Cells % (Manual) Plasma Cell % (Manual) Other Cells % Nucleated RBC % Neutrophils # (Manual) Band Neutrophils # Total Absolute Neuts Lymphocytes # (Manual) Prolymphocyte # Reactive Lymphs # Total Abs Lymphocytes Monocytes # (Manual) Eosinophils # (Manual) Basophils # (Manual) Metamyelocytes # (Man) Myelocytes # (Manual) Promyelocytes # (Man) Blast Cells # (Man) Plasma Cell # (Manual) Other Cells # Nucleated RBCs # (Man) Hypersegmented Neuts Hyposegmented Neuts Hypogranular Neuts Large Granular Lymphs # Lrg Granular Lymphs Hairy Cells Smudge Cells Toxic Granulation Toxic Vacuolation Dohle Bodies Herminia Rods Platelet Estimate Hypogranular Platelets Clumped Platelets Giant Platelets Platelet Satelliting RBC Morphology Polychromasia Hypochromasia Poikilocytosis Basophilic Stippling Anisocytosis Microcytosis Macrocytosis Spherocytes Pappenheimer Bodies Sickle Cells Target Cells Tear Drop Cells Ovalocytes Stomatocytes [place] Bodies Echinocytes Acanthocytes (Spur) Rouleaux RBC Agglutinates Schistocytes RBC Morph Comment Sezary Cell PT (9.0-12.0) Seconds INR (0.9-1.1) APTT (21.0-31.0) Seconds PTT Ratio Sodium (136-145) mmol/L Potassium (3.5-5.1) mmol/L Chloride (98-107) mmol/L Carbon Dioxide (21-32) mmol/L Anion Gap (3-11) BUN (7-18) mg/dl Creatinine (0.6-1.2) mg/dl Est Cr Clr Drug Dosing ml/min Est GFR ( Amer) Est GFR (Non-Af Amer) BUN/Creatinine Ratio (10-20) Glucose (70-99) mg/dl Calcium (8.5-10.1) mg/dl Total Bilirubin (0.2-1) mg/dl AST (15-37) U/L ALT (12-78) U/L Alkaline Phosphatase (45-117) U/L Troponin I (0-0.045) ng/ml Total Protein (6.4-8.2) gm/dl Albumin (3.4-5.0) gm/dl Globulin (2.5-4.0) gm/dl Albumin/Globulin Ratio (0.9-2) Urine Color Yellow Urine Appearance Clear (Clear) Urine pH 7.5 (4.5-7.5) Ur Specific [place] 1.009 (1.000-1.030) Urine Protein Negative (Negative) Urine Glucose (UA) Negative (Negative) Urine Ketones Negative (Negative) Urine Blood Negative (Negative) Urine Nitrite Negative (Negative) Urine Bilirubin Negative (Negative) Urine Urobilinogen Negative (Negative) Ur Leukocyte Esterase Negative (Negative) Digoxin 2.0 (0.8-2.0) ng/ml Imaging Data Radiologist's Impression: Radiology results as stated below per my review and the radiologist's interpretation: XR chest 1V portable CLINICAL HISTORY: 89 years-old Female presenting with Dyspnea. TECHNIQUE: Portable upright AP view of the chest was obtained. COMPARISON: 01/28/2019. FINDINGS: Left subclavian pacer with leads in the right atrium and right ventricular apex. Atherosclerosis of the aortic arch. Cardiac silhouette moderately enlarged as on prior exam. Pulmonary vascular prominence and interstitial prominence overall mild and similar to prior. Mildly low lung volumes. No focal opacity. No large effusion or pneumothorax. Osteopenia may be present. Posttraumatic deformity of the left humerus unchanged. Upper abdomen normal. IMPRESSION: 1. Cardiomegaly with mild volume overload and congestive change. No branden pulmonary edema. This is similar to prior. 2. Mildly low lung volumes. ACT 112: Negative or not required by law. Electronically signed by: Eugene Peralta M.D. 04/22/2019 12:42 PM ECG Data Attestation: I personally reviewed and interpreted this ECG as follows: Indication: + SOB/dyspnea Rate (beats per minute): 60 Rhythm: + other (Atrial paced) ECG [place]: + Normal ECG ST segments: + ST depression (Inferior, Anterior and Lateral Leads) ECG Findings: no PVCs Comparison ECG Date: from (01/28/2019) Change: the following changes noted (ST depression worse in inferior lateral and high lateral compared to previous) Blood Pressure Blood Pressure Findings: Normal blood pressure MDM Narrative The patient, who is a 89 year old female with a medical history of aspiration pneumonia, urinary incontinence and Alzheimer's disease, presents to the Emergency Room with observed complaints of low oxygen levels and altered mental status that started prior to arrival. Patient has dementia and does not recall the events but it was reported that the patient was hypoxic in the 70s and was lethargic/borderline unresponsive. Upon arrival patient was an extremely difficult stick and there was a septic patient in the pod which delayed IV access and blood work. IV and blood work was eventually obtained and showed no significant leukocytosis or anemia. INR was at 1.2 as expected as patient is on a NOAC currently CT PE was not explored. BMP with mild hypo-kalemia. Creatinine is consistent with previous at 1.7. Troponin was detectable but not positive at 0.032. UA was negative. Digoxin was normal. EKG showed worsening ST depressions in the inferior and lateral leads in comparison to previous EKG. Patient has only had these changes when she was in A. fib with RVR in the 130s. With this hypoxic insult and these new EKG changes with a heart rate in the 60s question if there is an ischemic component versus worsening CHF as she does have some mild pitting edema and chest x-ray supports some mild vascular congestion. Also considered an arrhythmia as the patient was borderline hypoxic with O2 sats in the 70s and consequently believe that the patient would benefit from observation. Impression & Plan Weakness, Acute electrocardiogram changes, Hypoxia, CHF (congestive heart failure) Discharge Plan Visit Data Chief Complaint: Illness ED Provider: Jefferson Lopez Discharge Problem: Weakness, Acute electrocardiogram changes, Hypoxia, CHF (congestive heart failure) Patient Disposition: Being Evaluated by Hospitalist Forms Stand Alone Forms: [facility] Prescriptions Prescriptions: No Action ipratropium-albuterol 0.5 mg-3 mg(2.5 mg base)/3 mL solution for nebulization 3 ml INHALATION Q6 PRN (Reason: Shortness Of Breath Or Wheezing) Qty: 90 RF: 1 Eliquis 5 mg tablet 5 mg PO BID Qty: 60 RF: 5 Breo Ellipta 200-25 mcg/dose blister with device 1 inh INHALATION DAILY Qty: 60 RF: 5 digoxin 125 mcg (0.125 mg) tablet 0.125 mcg PO QAM Qty: 30 RF: 5 metoprolol succinate 200 mg tablet extended release 24 hr 200 mg PO QAM Qty: 30 RF: 5 potassium chloride [Klor-Con M20] 20 mEq tablet,ER particles/crystals 40 meq PO TID Qty: 180 RF: 5 spironolactone 25 mg tablet 25 mg PO DAILY Qty: 15 RF: 5 omeprazole 20 mg capsule,delayed release(DR/EC) 20 mg PO DAILY Qty: 30 RF: 2 sertraline 100 mg tablet 100 mg PO QAM Qty: 30 RF: 5 levothyroxine 25 mcg tablet 25 mcg PO DAILY Qty: 30 RF: 5 docusate sodium 100 mg capsule 100 mg PO BID PRN (Reason: Constipation) RF: 0 acetaminophen 500 mg capsule 500 mg PO Q4H MDD 3 GRAMS/24 HOURS PRN (Reason: Pain/fever) RF: 0 furosemide 80 mg tablet 80 mg PO BID RF: 0 sennosides [senna] 8.6 mg Tablet 8.6 mg PO DAILY PRN (Reason: Constipation) RF: 0 albuterol sulfate 2.5 mg /3 mL (0.083 %) Solution For Nebulization 2.5 mg INHALATION QID PRN (Reason: Wheezing) RF: 0 bisacodyl 10 mg Suppository 10 mg DC DAILY PRN (Reason: Constipation) RF: 0 Fleet Enema 19-7 gram/118 mL Enema 118 ml DC DAILY PRN (Reason: Constipation) RF: 0 amiodarone 200 mg tablet 200 mg PO QAM RF: 0 memantine [Namenda] 5 mg tablet 5 mg PO QAM RF: 0 metolazone 2.5 mg tablet 2.5 mg PO [id number] RF: 0 budesonide 0.5 mg/2 mL suspension for nebulization 2 ml inhalation BID RF: 0 calcium carbonate-vitamin D3 [Oyster Shell Calcium-Vit D3] 500 mg(1,250mg) - 200 unit Tablet 1 tab PO DAILY RF: 0 loperamide 2 mg Capsule 2 mg PO Q4 PRN (Reason: Diarrhea) RF: 0 donepezil [Aricept] 10 mg tablet 10 mg PO HS RF: 0 nystatin 100,000 unit/gram Powder 1 applic TOPICAL TID PRN (Reason: Rash) RF: 0 ondansetron HCl [Zofran] 4 mg Tablet 4 mg PO Q4H PRN (Reason: Nausea) RF: 0 diphenhydramine HCl [Benadryl] 25 mg Capsule 25 mg PO Q6 PRN (Reason: Itching/RASH) RF: 0 Referrals [facility], [Primary Care Provider] - Discharge Problem: CHF (congestive heart failure) Qualifiers: Heart failure type: unspecified Heart failure chronicity: acute Qualified Code(s): I50.9 - Heart failure, unspecified The scribe's documentation has been prepared under my direction and personally reviewed by me in its entirety. I confirm that the note above accurately reflects all work, treatment, procedures, and medical decision making performed by me.
--- NOTE | 2019-04-22 20:01 | History & Physical Report ---
Date of Service April 22, 2019 Assessment & Plan (1) Weakness: Admits to [facility] on telemetry Vital signs every 4 hours Patient has severe Alzheimer dementia and she is a poor historian. At this time patient appears to be euvolemic and chest x-rays are only positive for mild volume overload and congestive changes. It does not appear that patient has pneumonia. Weakness could be possibly explained with worsening thyroid function and TSH being over 100. T4 is pending. CT scan of the head is negative for any acute changes. VT prophylaxis patient is on apixaban for A. fib's continue that. Patient is a DNR/DNI as already discussed with her daughter. Present on Admission?: Yes (2) Acute respiratory failure: Per patient daughter patient use supplemental oxygen only at night. Now patient needed supplemental oxygen during the day. Patient has mild pulmonary congestion which could contribute to increase need for oxygen. We will start diuresis with Lasix 20 mg IV twice daily. Strict in and out Daily weight Restrict sodium to 2 g Restrict fluids p.o. to 1200 mils daily Present on Admission?: Yes (3) CHF (congestive heart failure): As the above. Patient does not appear to be in acute exacerbation but has pulmonary congestion. BNP is normal. Continue digoxin 125 MCG's p.o. every morning, furosemide 80 mg p.o. twice daily switched to 40 mg IV twice daily. Titrate up as needed. Strict in and out Daily weight Restrict p.o. fluid to 1200 mils daily Low-sodium diet Metolazone 2.5 mg 3 times a week Present on Admission?: Yes (4) Hypothyroidism: TSH over 100. Patient was started recently on levothyroxine 25 mg p.o. daily. Would recommend close follow-up. Increase levothyroxine if needed after T4 available result. Present on Admission?: Yes (5) Morbid obesity with BMI of 45.0-49.9, adult: Patient advised to try to lose some weight if possible. At this point it is difficult to expect that patient at the age of 89 with severe Alzheimer dementia has very good control over her eating habits. Recommended to caregivers dietary adjustments and possibly more passive access. Present on Admission?: Yes (6) AF (paroxysmal atrial fibrillation): Continue apixaban 5 mg p.o. twice daily and amiodarone 200 mg p.o. every morning. History of Present Illness Chief Complaint: Altered mental status, urinary tract infection, borderline troponin Primary Care Provider: [facility] Patient is a 89 years old female with past medical history of hypertension, severe Alzheimer dementia, obstructive sleep apnea, paroxysmal A atrial fibrillation, depression, congestive heart failure diastolic type, morbid obesity, hypothyroidism, who was brought to the emergency room by her caregiver stating that she was concerned about patient having volume overload and at senior living informed the patient that her oxygen levels are dropping below 70s and she is very lethargic and borderline unresponsive. Patient was brought by EMS in the transport she will receive supplemental oxygen and was able to keep her oxygen level above 95%. Patient daughter who takes care of her as well said that patient wears oxygen only at night. Patient had no conical fall approximately 10 days ago. Patient is very poor historian and it is difficult to obtain review of systems from her due to her underlying severe Alzheimer dementia but at this point of time patient denies any chest pain and abdominal pain. Patient daughter said that patient is on Eliquis and digoxin. And she was started on new thyroid medication. Labs are reviewed WBC is 8.62, hemoglobin 13.8, hematocrit 43.4 platelets 170. PT 12.4, INR 1.2, APTT 29.2. Sodium 142, potassium 3.3, chloride 104, creatinine 1.79 which is worsening from the patient baseline which is 1.29 and GFR is 25. In March patient GFR was 37.2. AST 52, ALT 25, TSH on April 03 was 109.000, today TSH is pending. BNP is pending. Urine is completely clear. Chest x-ray shows cardiomegaly with mild volume overload and congestive changes. No branden pulmonary edema. This chest x-rays are similar to the prior one. Mildly low lung volumes. Decision was made to admit patient for observation for altered mental status, possibly volume overload at [facility] on telemetry Allergies Allergy/AdvReac Type Severity Reaction Status Date / Time No Known Drug Allergies Allergy Verified 04/22/19 13:29 Home Medications Home Medications Medication Instructions Recorded Confirmed Type donepezil [Aricept] 10 mg PO HS 06/20/18 04/22/19 History loperamide 2 mg PO Q4 PRN 06/20/18 04/22/19 History nystatin 1 applic TOPICAL TID PRN 06/20/18 04/22/19 History acetaminophen 500 mg capsule 500 mg PO Q4H PRN MDD 3 GRAMS/24 01/03/19 04/22/19 History HOURS diphenhydramine HCl [Benadryl] 25 mg PO Q6 PRN 01/09/19 04/22/19 History ondansetron HCl [Zofran] 4 mg PO Q4H PRN 01/09/19 04/22/19 History docusate sodium 100 mg capsule 100 mg PO BID PRN 01/22/19 04/22/19 History albuterol sulfate 2.5 mg INHALATION QID PRN 01/28/19 04/22/19 History amiodarone 200 mg PO QAM 01/28/19 04/22/19 History bisacodyl 10 mg NC DAILY PRN 01/28/19 04/22/19 History memantine [Namenda] 5 mg PO QAM 01/28/19 04/22/19 History sennosides [senna] 8.6 mg PO DAILY PRN 01/28/19 04/22/19 History sodium phosphates [Fleet Enema] 118 ml NC DAILY PRN 01/28/19 04/22/19 History furosemide 80 mg tablet 80 mg PO BID tab 01/30/19 04/22/19 History ipratropium 0.5 mg-albuterol 3 mg 3 ml INHALATION Q6 PRN #90 ml 02/03/19 04/22/19 Rx (2.5 mg base)/3 mL nebulization soln apixaban 5 mg tablet 5 mg PO BID #60 tab 02/04/19 04/22/19 Rx fluticasone furoate 200 1 inh INHALATION DAILY #60 ea 02/05/19 04/22/19 Rx mcg-vilanterol 25 mcg/dose inhalation powder digoxin 125 mcg (0.125 mg) tablet 0.125 mcg PO QAM #30 tab 02/10/19 04/22/19 Rx metoprolol succinate 200 mg 200 mg PO QAM #30 tab 02/11/19 04/22/19 Rx tablet,extended release 24 hr potassium chloride 20 mEq 40 meq PO TID #180 tab 02/11/19 04/22/19 Rx tablet,extended release(part/cryst) spironolactone 25 mg tablet 25 mg PO DAILY #15 tab 03/05/19 04/22/19 Rx omeprazole 20 mg capsule,delayed 20 mg PO DAILY #30 cap 03/17/19 04/22/19 Rx release sertraline 100 mg tablet 100 mg PO QAM #30 tab 03/17/19 04/22/19 Rx levothyroxine 25 mcg tablet 25 mcg PO DAILY #30 tab 04/04/19 04/22/19 Rx budesonide 2 ml INHALATION BID 04/22/19 04/22/19 History calcium carbonate-vitamin D3 1 tab PO DAILY 04/22/19 04/22/19 History [Oyster Shell Calcium-Vit D3] metolazone 2.5 mg PO 3XWK 04/22/19 04/22/19 History Past Med/Surg History Medical History AF (paroxysmal atrial fibrillation) (Chronic) Alzheimers disease (Chronic) Apnea, sleep (Chronic) Asthma (Chronic) Atrial fibrillation with rapid ventricular response (Resolved) Cardiac pacemaker (Chronic) Dementia Depression (Chronic) Diastolic congestive heart failure (Chronic) Diastolic dysfunction (Chronic) DVT prophylaxis (Resolved) Enterococcal bacteremia (Resolved) Glaucoma High cholesterol Hypertension (Chronic) Hypokalemia (Resolved) Hypokalemia (Chronic) Hypothyroidism 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) Obesity Situational anxiety (Chronic) Urinary incontinence (Chronic) Surgical History History of arthroscopic knee surgery History of eye surgery History of permanent cardiac pacemaker placement History of umbilical hernia repair Social History Preferred Language: Serbian Communication Ability: Effective Chief [place]arfinger Required: No Beliefs That Will Affect Care: None Current Living Situation: [facility] Current Living Situation Comment: [facility] Feels Safe at Home: Yes Smoking Status: Never smoker Hx Alcohol Use: No Hx Substance Use: No Review of Systems Review of Systems: All systems reviewed & are unremarkable except as noted in HPI & below Physical Exam Constitutional: WD/WN, vitals as above well developed and + morbidly obese Eyes: PERRL, conjunctivae normal, anicteric sclerae ENMT: external ear and nose normal, oropharynx normal Neck: trachea midline, no thyromegaly Respiratory: Auscultation: + wheezes Cardiovascular: Rate/Rhythm: + irregularly irregular Vessels: dorsalis pedis pulses present Extremities: + pedal edema Gastrointestinal (Abdomen): normal bowel sounds, soft, nontender, no hepatosplenomegaly Musculoskeletal: no cyanosis or clubbing, extremities motor strength 5/5 Skin: no rashes, warm and dry Neurologic: patellar DTR's 2+ bilat, sensation intact Psychiatric: A+Ox3, euthymic affect Lymphatic: no cervical or axillary lymphadenopathy Results & Data Vital Signs (Past 12 Hours) Vital Signs Temp Pulse Pulse Resp BP BP Pulse Ox 04/22/19 19:00 60 17 162/116 H 95 04/22/19 17:00 60 13 112/53 L 94 04/22/19 15:00 60 18 100/48 L 99 04/22/19 13:35 64 16 126/94 97 04/22/19 11:35 36.7 C 61 16 126/94 95 Code Status & VTE Plan Code Status DNR/DNI VTE Prophylaxis Plan VTE Prophylaxis will be ordered: Yes PG Care Time/CCT Total # of Minutes Spent Total Time Spent with Patient: Total time spent is greater than 50% in coordination of care (as documented) at patient's floor/unit and/or counseling patient: (1) CHF (congestive heart failure) Heart failure chronicity: acute Heart failure type: unspecified Qualified Code(s): I50.9 - Heart failure, unspecified
[2019-04-22] MEDS ORDERED: POTASSIUM CHLORIDE 10 MEQ TABCR PO ONE (20:22)
[2019-04-22] MEDS ORDERED: POTASSIUM CHLORIDE 20 MEQ TABCR PO STA (20:59)
--- NOTE | 2019-04-22 21:18 | CT Scan Report ---
CT head/brain wo con CT DOSE: 926.01 mGy.cm HISTORY: Mental status change altered mental status TECHNIQUE: Multiaxial CT images of the head were performed without the use of intravenous contrast. A dose lowering technique was utilized adhering to the principles of ALARA. Comparison: 01/28/2019 Findings: The paranasal sinuses and mastoid air cells are clear. The calvarium and skull base are int act. The ventricles and sulci are within normal limits. There is no mass, hematoma, midline shift, or acute infarct. Age-related atrophy and chronic small vessel change. Impression: No acute intracranial abnormality. Age-related atrophy and chronic small vessel change ACT 112: Negative or not required by law. The above report was generated using voice recognition software. It may contain grammatical, syntax or spelling errors. Electronically signed by: Tommy Heart M.D. 04/22/2019 9:17 PM
[2019-04-22] MEDS ORDERED: SOD PHOSPHATE/SOD BIPHOSPHATE ENEMA 132 ML BTL PR PRN (21:25)
[2019-04-22] MEDS ORDERED: MAGNESIUM HYDROXIDE SUSP 30 ML UDC PO PRN (21:25)
[2019-04-22] MEDS ORDERED: NYSTATIN POWDER 15GM BTL EXT PRN (21:25)
[2019-04-22] MEDS ORDERED: bisacodyL 10 MG SUPP PR PRN (21:25)
[2019-04-22] MEDS ORDERED: LOPERAMIDE HCL 2 MG CAP PO PRN (21:25)
[2019-04-22] MEDS ORDERED: ALBUTEROL 0.083% NEBU SOLN 3 ML VIAL INH PRN (21:25)
[2019-04-22] MEDS ORDERED: ALBUT/IPRATROP 3MG/0.5MG NEB 3 ML VIAL INH PRN (21:25)
[2019-04-22] MEDS ORDERED: ALUMINUM/MAGNESIUM SUSP 30 ML UDC PO PRN (21:25)
[2019-04-22] MEDS ORDERED: FUROSEMIDE 80 MG TAB PO SCH (21:25)
[2019-04-22] MEDS ORDERED: ACETAMINOPHEN 325 MG TAB PO PRN (21:25)
[2019-04-22] MEDS ORDERED: SENNA 8.6 MG TAB PO PRN (21:25)
[2019-04-22] MEDS ORDERED: ONDANSETRON 4 MG TAB PO PRN (21:25)
[2019-04-22] MEDS ORDERED: POLYETHYLENE (MIRALAX) 17 GM PACK PO PRN (21:25)
[2019-04-22] MEDS ORDERED: DOCUSATE SODIUM 100 MG CAP PO PRN (21:25)
[2019-04-22] MEDS: BUDESONIDE 0.5 MG/2 ML VIAL (PULMICORT) INH SCH (21:50)
[2019-04-22] MEDS: POTASSIUM CHLORIDE 20 MEQ TABCR PO SCH (21:59)
[2019-04-22] MEDS: DONEPEZIL HCL 10 MG TAB PO SCH (21:59)
[2019-04-22] MEDS: APIXABAN 5 MG TABLET PO SCH (21:59)
[2019-04-23 03:50] LABS: Albumin Level 2.8 gm/dl (3.4-5.0); BUN Creatinine Ratio 9.6 (10-20); Calcium 8.3 mg/dl (8.5-10.1); Creatinine Clr Calc Pharmacy 31.5 ml/min; Est GFR (African American) 32.5; Potassium 3.7 mmol/L (3.5-5.1)
[2019-04-23 03:55] LABS: Albumin Globulin Ratio 0.7 (0.9-2); Bilirubin,Total 0.5 mg/dl (0.2-1); Globulin 3.8 gm/dl (2.5-4.0); Total Protein 6.6 gm/dl (6.4-8.2); Troponin I 0.03 ng/ml (0-0.045)
[2019-04-23 04:51] LABS: Basophils # (auto) 0.06 K/uL (0-0.2); Basophils % (auto) 0.7 %; Eosinophils # (auto) 0.24 K/uL (0-0.5); Eosinophils % (auto) 2.8 %; Hematocrit (blood only) 42.6 % (37-47); Hemoglobin 13.4 g/dL (12.0-16.0); Immature Granulocytes # (auto) 0.05 K/uL (0.00-0.02); Immature Granulocytes % (auto) 0.6 %; Lymphocytes # (auto) 2.13 K/uL (1.2-3.4); Lymphocytes % (auto) 25.3 %; Mean Corpuscular Hemoglobin 32.1 pg (25-34); Mean Corpuscular Hgb Conc 31.5 g/dL (32-36); Mean Corpuscular Volume 101.9 fL (80-100); Mean Platelet Volume 10.5 fL (7.4-10.4); Monocytes # (auto) 0.67 K/uL (0.11-0.59); Monocytes % (auto) 7.9 %; Neutrophils # (auto) 5.28 K/uL (1.4-6.5); Neutrophils % (auto) 62.7 %; Platelet Count 183 K/uL (130-400); RBC Morphology Unremarkable; RDW Coefficient of Variation 16.3 % (11.5-14.5); RDW Standard Deviation 60.8 fL (36.4-46.3); Red Blood Count 4.18 M/uL (4.2-5.4); White Blood Count 8.43 K/uL (4.8-10.8)
[2019-04-23] MEDS ORDERED: LEVOTHYROXINE SODIUM 25 MCG TABLET PO SCH (06:30)
[2019-04-23] MEDS: BUDESONIDE 0.5 MG/2 ML VIAL (PULMICORT) INH SCH ×2 (07:06→19:03)
[2019-04-23] MEDS ORDERED: metOLazone 2.5 MG TABLET PO SCH (08:00)
[2019-04-23 08:08] LABS: Estimated Average Glucose 154 mg/dl
[2019-04-23] MEDS: SPIRONOLACTONE 25 MG TAB PO SCH (08:39)
[2019-04-23] MEDS: CALCIUM 600MG + VIT D 400 IU TAB PO SCH (08:39)
[2019-04-23] MEDS: APIXABAN 5 MG TABLET PO SCH (08:39)
[2019-04-23] MEDS: POTASSIUM CHLORIDE 20 MEQ TABCR PO SCH ×3 (08:39→20:34)
[2019-04-23] MEDS: AMIODARONE 200 MG TAB PO SCH (08:39)
[2019-04-23] MEDS: METOPROLOL SUCC 50MG EXT REL TAB PO SCH (08:40)
[2019-04-23] MEDS: MEMANTINE HCL 5 MG TAB PO SCH (08:40)
[2019-04-23] MEDS: SERTRALINE HCL 100 MG TABLET PO SCH (08:40)
[2019-04-23] MEDS ORDERED: FUROSEMIDE 40 MG in SYRINGE 0 ML IV SCH (09:00)
--- NOTE | 2019-04-23 09:17 | Cardiology Consultation ---
Date of Consultation April 23, 2019 Assessment & Plan (1) Hypoxia: She was reported to have low oxygen saturations at the senior care. However, since her hospital admission her saturations have been normal. She was less responsive reportedly at the senior care as well. Perhaps she had periods of apnea or reduced respiratory effort due to her hypothyroidism. I do not think this is likely related to congestive heart failure. Her chest x-ray appears fairly benign. Objective measurements such as her BMP are normal. Review of her recent weights provided by the senior care also suggest she has not gained weight. She appears quite comfortable on examination. I think she could easily resume her usual outpatient dose of diuretic. (2) Diastolic dysfunction: She appears well compensated currently. She has been on an aggressive regimen for diastolic dysfunction to include high-dose Lasix, periodic metolazone and spironolactone. Recently she has been doing quite well. Her weight appears to be stable. She is followed closely in our [facility] failure [facility]. As noted above, I believe she could continue her usual outpatient regimen. (3) AF (paroxysmal atrial fibrillation): Currently in sinus rhythm. Paced atrial rhythm at times. She should continue her beta-marquise, digoxin and amiodarone. It is very likely that the amiodarone precipitated her hypothyroidism. She is currently being s upplemented. As the amiodarone appears to be working well I would continue her on her current dose. Digoxin level was drawn today and was in the normal range. However, I think we need to be careful with her digoxin moving forward. We may have an opportunity to simply discontinue her digoxin in the future if she has been maintaining sinus rhythm or otherwise has good rate control demonstrated t hrough interrogation of her device. History of Present Illness Reason for Consultation: Hypoxia Requesting Physician: Maxx Attending Physician: Jan Almeida MD History of Present Illness The patient is an 89-year-old woman with a longstanding history of diastolic heart failure, paroxysmal atrial fibrillation, bradycardia and prior placement of a dual-chamber permanent pacemaker. She has been admitted multiple times over the past year with symptoms of pulmonary congestion. At her last admission she was noted to have atrial fibrillation and high ventricular rates. She was started on amiodarone therapy at that time. It seems that she was sent from her senior care for symptoms of weakness and hypoxia. Patient reportedly was poorly responsive at times and required more supplemental oxygen. Curiously, in route to the hospital she appeared to be oxygenating well. She was recently discovered to be severely hypothyroid based on a severely elevated TSH. Thyroid supplementation had been started. At the time of my interview the patient claims to be feeling well. She is confused but appears to be at her baseline. She denies any breathing difficulty. She denies any chest pain or pain at any location. She was somewhat upset about not having dinner. She was unaware she had had breakfast this morning. Allergies Allergy/AdvReac Type Severity Reaction Status Date / Time No Known Drug Allergies Allergy Verified 04/22/19 13:29 Home Medications Home Medications Medication Instructions Recorded Confirmed Type donepezil [Aricept] 10 mg PO HS 06/20/18 04/22/19 History loperamide 2 mg PO Q4 PRN 06/20/18 04/22/19 History nystatin 1 applic TOPICAL TID PRN 06/20/18 04/22/19 History acetaminophen 500 mg capsule 500 mg PO Q4H PRN MDD 3 GRAMS/24 01/03/19 04/22/19 History HOURS diphenhydramine HCl [Benadryl] 25 mg PO Q6 PRN 01/09/19 04/22/19 History ondansetron HCl [Zofran] 4 mg PO Q4H PRN 01/09/19 04/22/19 History docusate sodium 100 mg capsule 100 mg PO BID PRN 01/22/19 04/22/19 History albuterol sulfate 2.5 mg INHALATION QID PRN 01/28/19 04/22/19 History amiodarone 200 mg PO QAM 01/28/19 04/22/19 History bisacodyl 10 mg CO DAILY PRN 01/28/19 04/22/19 History memantine [Namenda] 5 mg PO QAM 01/28/19 04/22/19 History sennosides [senna] 8.6 mg PO DAILY PRN 01/28/19 04/22/19 History sodium phosphates [Fleet Enema] 118 ml CO DAILY PRN 01/28/19 04/22/19 History furosemide 80 mg tablet 80 mg PO BID tab 01/30/19 04/22/19 History ipratropium 0.5 mg-albuterol 3 mg 3 ml INHALATION Q6 PRN #90 ml 02/03/19 04/22/19 Rx (2.5 mg base)/3 mL nebulization soln apixaban 5 mg tablet 5 mg PO BID #60 tab 02/04/19 04/22/19 Rx fluticasone furoate 200 1 inh INHALATION DAILY #60 ea 02/05/19 04/22/19 Rx mcg-vilanterol 25 mcg/dose inhalation powder digoxin 125 mcg (0.125 mg) tablet 0.125 mcg PO QAM #30 tab 02/10/19 04/22/19 Rx metoprolol succinate 200 mg 200 mg PO QAM #30 tab 02/11/19 04/22/19 Rx tablet,extended release 24 hr potassium chloride 20 mEq 40 meq PO TID #180 tab 02/11/19 04/22/19 Rx tablet,extended release(part/cryst) spironolactone 25 mg tablet 25 mg PO DAILY #15 tab 03/05/19 04/22/19 Rx omeprazole 20 mg capsule,delayed 20 mg PO DAILY #30 cap 03/17/19 04/22/19 Rx release sertraline 100 mg tablet 100 mg PO QAM #30 tab 03/17/19 04/22/19 Rx levothyroxine 25 mcg tablet 25 mcg PO DAILY #30 tab 04/04/19 04/22/19 Rx budesonide 2 ml INHALATION BID 04/22/19 04/22/19 History calcium carbonate-vitamin D3 1 tab PO DAILY 04/22/19 04/22/19 History [Oyster Shell Calcium-Vit D3] metolazone 2.5 mg PO 3XWK 04/22/19 04/22/19 History Patient History Medical History AF (paroxysmal atrial fibrillation) (Chronic) Alzheimers disease (Chronic) Apnea, sleep (Chronic) Asthma (Chronic) Atrial fibrillation with rapid ventricular response (Resolved) Cardiac pacemaker (Chronic) Dementia Depression (Chronic) Diastolic congestive heart failure (Chronic) Diastolic dysfunction (Chronic) DVT prophylaxis (Resolved) Enterococcal bacteremia (Resolved) Glaucoma High cholesterol Hypertension (Chronic) Hypokalemia (Resolved) Hypokalemia (Chronic) Hypothyroidism 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) Obesity Situational anxiety (Chronic) Urinary incontinence (Chronic) Surgical History History of arthroscopic knee surgery History of eye surgery History of permanent cardiac pacemaker placement History of umbilical hernia repair Social History Preferred Language: Setswana Communication Ability: Effective Nut Packer Required: No Beliefs That Will Affect Care: None Current Living Situation: Residential Current Living Situation Comment: [place] Feels Safe at Home: Yes Smoking Status: Never smoker Hx Alcohol Use: No Hx Substance Use: No Review of Systems Review of Systems: Unobtainable due to cognitive status Per HPI Physical Exam Physical Exam: She is alert and answered questions. Her answers were incorrect most of the time. She cannot remember her daughter's name. She had no understanding of her current circumstance. Obese HEENT: Sclerae are anicteric. Pupils are equal and reactive to light and accommodation. Extraocular movements were intact. Neuro: Cranial nerves intact Neck: Thick neck. Redundant neck tissue. Lungs: She had difficulty cooperating with exam. No expiratory wheezing. Good respiratory effort. No crackles in the apex. Cardiac: The rhythm was regular. Heart sounds were distant. S1 and S2 were normal. There are no murmurs on examination. The PMI was not markedly displaced on palpation. Abdomen: The abdomen was soft and nontender. Obese. Extremities: Patient has bilateral radial pulses that are equal in intensity. There is no evidence cyanosis or clubbing. There was no evidence of significant peripheral edema bilaterally. Skin: There are no rashes noted on examination today. Results & Data Vital Signs (Past 12 Hours) Vital Signs Temp Pulse Pulse Resp BP BP Pulse Ox 04/23/19 08:01 60 142/64 H 117/62 90 04/23/19 07:59 36.4 C L 60 20 89/49 L 96 04/23/19 07:45 62 04/23/19 07:06 90 16 95 04/23/19 04:11 36.6 C 61 20 114/80 93 04/23/19 02:38 60 04/23/19 01:21 62 24 96 04/22/19 23:42 36.6 C 62 20 114/59 L 97 04/22/19 22:22 60 22 95 04/22/19 21:53 60 20 90 04/22/19 21:23 36.4 C L 63 18 141/105 H 95 Laboratory Results Abnormal Lab Results 04/22/19 04/22/19 04/22/19 15:19 15:19 15:19 WBC Cancelled RBC Cancelled Hgb Cancelled Hct Cancelled MCV Cancelled MCH Cancelled MCHC Cancelled RDW Std Deviation Cancelled RDW Coeff of [place] Cancelled Plt Count Cancelled MPV Cancelled Immature Gran % (Auto) Cancelled Neut % (Auto) Cancelled Lymph % (Auto) Cancelled [place] % (Auto) Cancelled Eos % (Auto) Cancelled Baso % (Auto) Cancelled Immature Gran # (Auto) Cancelled Neut # (Auto) Cancelled Lymph # (Auto) Cancelled [place] # (Auto) Cancelled Eos # (Auto) Cancelled Baso # (Auto) Cancelled Absolute Nucleated RBC Cancelled Nucleated RBC % (auto) Cancelled Neutrophils % (Manual) Cancelled Band Neutrophils % Cancelled Lymphocytes % (Manual) Cancelled Prolymphocyte % Cancelled Reactive Lymphs % (Man) Cancelled Monocytes % (Manual) Cancelled Eosinophils % (Manual) Cancelled Basophils % (Manual) Cancelled Metamyelocytes % (Man) Cancelled Myelocytes % (Man) Cancelled Promyelocytes % (Man) Cancelled Blast Cells % (Manual) Cancelled Plasma Cell % (Manual) Cancelled Other Cells % Cancelled Nucleated RBC % Cancelled Neutrophils # (Manual) Cancelled Band Neutrophils # Cancelled Total Absolute Neuts Cancelled Lymphocytes # (Manual) Cancelled Prolymphocyte # Cancelled Reactive Lymphs # Cancelled Total Abs Lymphocytes Cancelled Monocytes # (Manual) Cancelled Eosinophils # (Manual) Cancelled Basophils # (Manual) Cancelled Metamyelocytes # (Man) Cancelled Myelocytes # (Manual) Cancelled Promyelocytes # (Man) Cancelled Blast Cells # (Man) Cancelled Plasma Cell # (Manual) Cancelled Other Cells # Cancelled Nucleated RBCs # (Man) Cancelled Hypersegmented Neuts Cancelled Hyposegmented Neuts Cancelled Hypogranular Neuts Cancelled Large Granular Lymphs Cancelled # Lrg Granular Lymphs Cancelled Hairy Cells Cancelled Smudge Cells Cancelled Toxic Granulation Cancelled Toxic Vacuolation Cancelled Dohle Bodies Cancelled Herminia Rods Cancelled Platelet Estimate Cancelled Hypogranular Platelets Cancelled Clumped Platelets Cancelled Giant Platelets Cancelled Platelet Satelliting Cancelled RBC Morphology Cancelled Polychromasia Cancelled Hypochromasia Cancelled Poikilocytosis Cancelled Basophilic Stippling Cancelled Anisocytosis Cancelled Microcytosis Cancelled Macrocytosis Cancelled Spherocytes Cancelled Pappenheimer Bodies Cancelled Sickle Cells Cancelled Target Cells Cancelled Tear Drop Cells Cancelled Ovalocytes Cancelled Stomatocytes Cancelled Long-Betances Bodies Cancelled Echinocytes Cancelled Acanthocytes (Spur) Cancelled Rouleaux Cancelled RBC Agglutinates Cancelled Schistocytes Cancelled RBC Morph Comment Cancelled Sezary Cell Cancelled PT 12.4 H INR 1.2 H APTT 29.2 PTT Ratio 1.1 Sodium 142 Potassium 3.3 L Chloride 104 Carbon Dioxide 31 Anion Gap 7.0 BUN 17 Creatinine 1.79 H Est Cr Clr Drug Dosing 26.8 Est GFR ( Amer) 29.0 Est GFR (Non-Af Amer) 25.0 BUN/Creatinine Ratio 9.6 L Glucose 120 H POC Glucose Estimat Average Glucose Hemoglobin A1c Calcium 8.9 Total Bilirubin 0.4 AST 52 H ALT 25 Alkaline Phosphatase 51 Troponin I 0.032 NT-Pro-B Natriuret Pep 425 Total Protein 6.6 Albumin 2.8 L Globulin 3.8 Albumin/Globulin Ratio 0.7 L Triglycerides Cholesterol LDL Cholesterol, Calc VLDL Cholesterol, Calc HDL Cholesterol Cholesterol/HDL Ratio TSH 104.000 H Free T4 Urine Color Urine Appearance Urine pH Ur Specific [place] Urine Protein Urine Glucose (UA) Urine Ketones Urine Blood Urine Nitrite Urine Bilirubin Urine Urobilinogen Ur Leukocyte Esterase Nasal Screen MRSA (PCR) Digoxin 04/22/19 04/22/19 04/22/19 15:19 15:19 15:55 WBC RBC Hgb Hct MCV MCH MCHC RDW Std Deviation RDW Coeff of [place] Plt Count MPV Immature Gran % (Auto) Neut % (Auto) Lymph % (Auto) [place] % (Auto) Eos % (Auto) Baso % (Auto) Immature Gran # (Auto) Neut # (Auto) Lymph # (Auto) [place] # (Auto) Eos # (Auto) Baso # (Auto) Absolute Nucleated RBC Nucleated RBC % (auto) Neutrophils % (Manual) Band Neutrophils % Lymphocytes % (Manual) Prolymphocyte % Reactive Lymphs % (Man) Monocytes % (Manual) Eosinophils % (Manual) Basophils % (Manual) Metamyelocytes % (Man) Myelocytes % (Man) Promyelocytes % (Man) Blast Cells % (Manual) Plasma Cell % (Manual) Other Cells % Nucleated RBC % Neutrophils # (Manual) Band Neutrophils # Total Absolute Neuts Lymphocytes # (Manual) Prolymphocyte # Reactive Lymphs # Total Abs Lymphocytes Monocytes # (Manual) Eosinophils # (Manual) Basophils # (Manual) Metamyelocytes # (Man) Myelocytes # (Manual) Promyelocytes # (Man) Blast Cells # (Man) Plasma Cell # (Manual) Other Cells # Nucleated RBCs # (Man) Hypersegmented Neuts Hyposegmented Neuts Hypogranular Neuts Large Granular Lymphs # Lrg Granular Lymphs Hairy Cells Smudge Cells Toxic Granulation Toxic Vacuolation Dohle Bodies [place] Rods Platelet Estimate Hypogranular Platelets Clumped Platelets Giant Platelets Platelet Satelliting RBC Morphology Polychromasia Hypochromasia Poikilocytosis Basophilic Stippling Anisocytosis Microcytosis Macrocytosis Spherocytes Pappenheimer Bodies Sickle Cells Target Cells Tear Drop Cells Ovalocytes Stomatocytes Long-Betances Bodies Echinocytes Acanthocytes (Spur) Rouleaux RBC Agglutinates Schistocytes RBC Morph Comment Sezary Cell PT INR APTT PTT Ratio Sodium Potassium Chloride Carbon Dioxide Anion Gap BUN Creatinine Est Cr Clr Drug Dosing Est GFR ( Amer) Est GFR (Non-Af Amer) BUN/Creatinine Ratio Glucose POC Glucose Estimat Average Glucose Hemoglobin A1c Calcium Total Bilirubin AST ALT Alkaline Phosphatase Troponin I NT-Pro-B Natriuret Pep Total Protein Albumin Globulin Albumin/Globulin Ratio Triglycerides Cholesterol LDL Cholesterol, Calc VLDL Cholesterol, Calc HDL Cholesterol Cholesterol/HDL Ratio TSH Free T4 0.42 L Urine Color Yellow Urine Appearance Clear Urine pH 7.5 Ur Specific [place] 1.009 Urine Protein Negative Urine Glucose (UA) Negative Urine Ketones Negative Urine Blood Negative Urine Nitrite Negative Urine Bilirubin Negative Urine Urobilinogen Negative Ur Leukocyte Esterase Negative Nasal Screen MRSA (PCR) Digoxin 2.0 04/22/19 04/22/19 04/22/19 16:32 21:46 23:30 WBC 8.62 RBC 4.32 Hgb 13.8 Hct 43.4 MCV 100.5 H MCH 31.9 MCHC 31.8 L RDW Std Deviation 60.5 H RDW Coeff of [place] 16.4 H Plt Count 170 MPV 10.7 H Immature Gran % (Auto) 0.5 Neut % (Auto) 60.6 Lymph % (Auto) 24.9 [place] % (Auto) 9.6 Eos % (Auto) 3.9 Baso % (Auto) 0.5 Immature Gran # (Auto) 0.04 H Neut # (Auto) 5.22 Lymph # (Auto) 2.15 [place] # (Auto) 0.83 H Eos # (Auto) 0.34 Baso # (Auto) 0.04 Absolute Nucleated RBC Nucleated RBC % (auto) Neutrophils % (Manual) Band Neutrophils % Lymphocytes % (Manual) Prolymphocyte % Reactive Lymphs % (Man) Monocytes % (Manual) Eosinophils % (Manual) Basophils % (Manual) Metamyelocytes % (Man) Myelocytes % (Man) Promyelocytes % (Man) Blast Cells % (Manual) Plasma Cell % (Manual) Other Cells % Nucleated RBC % Neutrophils # (Manual) Band Neutrophils # Total Absolute Neuts Lymphocytes # (Manual) Prolymphocyte # Reactive Lymphs # Total Abs Lymphocytes Monocytes # (Manual) Eosinophils # (Manual) Basophils # (Manual) Metamyelocytes # (Man) Myelocytes # (Manual) Promyelocytes # (Man) Blast Cells # (Man) Plasma Cell # (Manual) Other Cells # Nucleated RBCs # (Man) Hypersegmented Neuts Hyposegmented Neuts Hypogranular Neuts Large Granular Lymphs # Lrg Granular Lymphs Hairy Cells Smudge Cells Toxic Granulation Toxic Vacuolation Dohle Bodies [place] Rods Platelet Estimate Hypogranular Platelets Clumped Platelets Giant Platelets Platelet Satelliting RBC Morphology Polychromasia Hypochromasia Poikilocytosis Basophilic Stippling Anisocytosis Microcytosis Macrocytosis Spherocytes Pappenheimer Bodies Sickle Cells Target Cells Tear Drop Cells Ovalocytes Stomatocytes Long-Betances Bodies Echinocytes Acanthocytes (Spur) Rouleaux RBC Agglutinates Schistocytes RBC Morph Comment Sezary Cell PT INR APTT PTT Ratio Sodium Potassium Chloride Carbon Dioxide Anion Gap BUN Creatinine Est Cr Clr Drug Dosing Est GFR ( Amer) Est GFR (Non-Af Amer) BUN/Creatinine Ratio Glucose POC Glucose Estimat Average Glucose Hemoglobin A1c Calcium Total Bilirubin AST ALT Alkaline Phosphatase Troponin I 0.040 NT-Pro-B Natriuret Pep Total Protein Albumin Globulin Albumin/Globulin Ratio Triglycerides Cholesterol LDL Cholesterol, Calc VLDL Cholesterol, Calc HDL Cholesterol Cholesterol/HDL Ratio TSH Free T4 Urine Color Urine Appearance Urine pH Ur Specific [place] Urine Protein Urine Glucose (UA) Urine Ketones Urine Blood Urine Nitrite Urine Bilirubin Urine Urobilinogen Ur Leukocyte Esterase Nasal Screen MRSA (PCR) Negative Digoxin 04/23/19 04/23/19 04/23/19 03:17 03:17 03:17 WBC 8.43 RBC 4.18 L Hgb 13.4 Hct 42.6 MCV 101.9 H MCH 32.1 MCHC 31.5 L RDW Std Deviation 60.8 H RDW Coeff of [place] 16.3 H Plt Count 183 MPV 10.5 H Immature Gran % (Auto) 0.6 Neut % (Auto) 62.7 Lymph % (Auto) 25.3 [place] % (Auto) 7.9 Eos % (Auto) 2.8 Baso % (Auto) 0.7 Immature Gran # (Auto) 0.05 H Neut # (Auto) 5.28 Lymph # (Auto) 2.13 [place] # (Auto) 0.67 H Eos # (Auto) 0.24 Baso # (Auto) 0.06 Absolute Nucleated RBC Nucleated RBC % (auto) Neutrophils % (Manual) Band Neutrophils % Lymphocytes % (Manual) Prolymphocyte % Reactive Lymphs % (Man) Monocytes % (Manual) Eosinophils % (Manual) Basophils % (Manual) Metamyelocytes % (Man) Myelocytes % (Man) Promyelocytes % (Man) Blast Cells % (Manual) Plasma Cell % (Manual) Other Cells % Nucleated RBC % Neutrophils # (Manual) Band Neutrophils # Total Absolute Neuts Lymphocytes # (Manual) Prolymphocyte # Reactive Lymphs # Total Abs Lymphocytes Monocytes # (Manual) Eosinophils # (Manual) Basophils # (Manual) Metamyelocytes # (Man) Myelocytes # (Manual) Promyelocytes # (Man) Blast Cells # (Man) Plasma Cell # (Manual) Other Cells # Nucleated RBCs # (Man) Hypersegmented Neuts Hyposegmented Neuts Hypogranular Neuts Large Granular Lymphs # Lrg Granular Lymphs Hairy Cells Smudge Cells Toxic Granulation Toxic Vacuolation Dohle Bodies [place] Rods Platelet Estimate Hypogranular Platelets Clumped Platelets Giant Platelets Platelet Satelliting RBC Morphology Unremarkable Polychromasia Hypochromasia Poikilocytosis Basophilic Stippling Anisocytosis Microcytosis Macrocytosis Spherocytes Pappenheimer Bodies Sickle Cells Target Cells Tear Drop Cells Ovalocytes Stomatocytes Long-Betances Bodies Echinocytes Acanthocytes (Spur) Rouleaux RBC Agglutinates Schistocytes RBC Morph Comment Sezary Cell PT INR APTT PTT Ratio Sodium 141 Potassium 3.7 Chloride 106 Carbon Dioxide 31 Anion Gap 4.0 BUN 16 Creatinine 1.63 H Est Cr Clr Drug Dosing 31.5 Est GFR ( Amer) 32.5 Est GFR (Non-Af Amer) 28.0 BUN/Creatinine Ratio 9.6 L Glucose 112 H POC Glucose Estimat Average Glucose 154 Hemoglobin A1c 7.0 H Calcium 8.3 L Total Bilirubin 0.5 AST 65 H ALT 28 Alkaline Phosphatase 56 Troponin I 0.030 NT-Pro-B Natriuret Pep Total Protein 6.6 Albumin 2.8 L Globulin 3.8 Albumin/Globulin Ratio 0.7 L Triglycerides 317 H Cholesterol 326 H LDL Cholesterol, Calc 220 VLDL Cholesterol, Calc 63 HDL Cholesterol 43 Cholesterol/HDL Ratio 8 TSH Free T4 Urine Color Urine Appearance Urine pH Ur Specific [place] Urine Protein Urine Glucose (UA) Urine Ketones Urine Blood Urine Nitrite Urine Bilirubin Urine Urobilinogen Ur Leukocyte Esterase Nasal Screen MRSA (PCR) Digoxin 04/23/19 07:37 WBC RBC Hgb Hct MCV MCH MCHC RDW Std Deviation RDW Coeff of [place] Plt Count MPV Immature Gran % (Auto) Neut % (Auto) Lymph % (Auto) [place] % (Auto) Eos % (Auto) Baso % (Auto) Immature Gran # (Auto) Neut # (Auto) Lymph # (Auto) [place] # (Auto) Eos # (Auto) Baso # (Auto) Absolute Nucleated RBC Nucleated RBC % (auto) Neutrophils % (Manual) Band Neutrophils % Lymphocytes % (Manual) Prolymphocyte % Reactive Lymphs % (Man) Monocytes % (Manual) Eosinophils % (Manual) Basophils % (Manual) Metamyelocytes % (Man) Myelocytes % (Man) Promyelocytes % (Man) Blast Cells % (Manual) Plasma Cell % (Manual) Other Cells % Nucleated RBC % Neutrophils # (Manual) Band Neutrophils # Total Absolute Neuts Lymphocytes # (Manual) Prolymphocyte # Reactive Lymphs # Total Abs Lymphocytes Monocytes # (Manual) Eosinophils # (Manual) Basophils # (Manual) Metamyelocytes # (Man) Myelocytes # (Manual) Promyelocytes # (Man) Blast Cells # (Man) Plasma Cell # (Manual) Other Cells # Nucleated RBCs # (Man) Hypersegmented Neuts Hyposegmented Neuts Hypogranular Neuts Large Granular Lymphs # Lrg Granular Lymphs Hairy Cells Smudge Cells Toxic Granulation Toxic Vacuolation Dohle Bodies [place] Rods Platelet Estimate Hypogranular Platelets Clumped Platelets Giant Platelets Platelet Satelliting RBC Morphology Polychromasia Hypochromasia Poikilocytosis Basophilic Stippling Anisocytosis Microcytosis Macrocytosis Spherocytes Pappenheimer Bodies Sickle Cells Target Cells Tear Drop Cells Ovalocytes Stomatocytes Long-Betances Bodies Echinocytes Acanthocytes (Spur) Rouleaux RBC Agglutinates Schistocytes RBC Morph Comment Sezary Cell PT INR APTT PTT Ratio Sodium Potassium Chloride Carbon Dioxide Anion Gap BUN Creatinine Est Cr Clr Drug Dosing Est GFR ( Amer) Est GFR (Non-Af Amer) BUN/Creatinine Ratio Glucose POC Glucose 127 H Estimat Average Glucose Hemoglobin A1c Calcium Total Bilirubin AST ALT Alkaline Phosphatase Troponin I NT-Pro-B Natriuret Pep Total Protein Albumin Globulin Albumin/Globulin Ratio Triglycerides Cholesterol LDL Cholesterol, Calc VLDL Cholesterol, Calc HDL Cholesterol Cholesterol/HDL Ratio TSH Free T4 Urine Color Urine Appearance Urine pH Ur Specific [place] Urine Protein Urine Glucose (UA) Urine Ketones Urine Blood Urine Nitrite Urine Bilirubin Urine Urobilinogen Ur Leukocyte Esterase Nasal Screen MRSA (PCR) Digoxin Diagnostic Findings Chest x-ray obtained at the time of admission revealed low lung volumes and prominent pulmonary vasculature.Also performed which did not reveal any acute intracranial process. ECG Additional Comments: Paced atrial rhythm with narrow complex QRS and diffuse ST segment depressions. PG Care Time/CCT Total # of Minutes Spent Total Time Spent with Patient: Total time spent is greater than 50% in coordination of care (as documented) at patient's floor/unit and/or counseling patient:
--- NOTE | 2019-04-23 10:19 | Electrocardiogram Report ---
Test Reason : Blood Pressure : / mmHG Vent. Rate : 060 BPM Atrial Rate : 000 BPM P-R Int : 000 ms QRS Dur : 094 ms QT Int : 448 ms P-R-T Axes : 000 050 -78 degrees QTc Int : 448 ms Sinus bradycardia with 1st degree A-V block Abnormal ECG When compared with ECG of 22-APR-2019 14:01, Electronic atrial pacemaker no longer present Confirmed by Nabor Jaramillo ([id number]) on 04/23/2019 10:19:06 AM [facility] Confirmed By:Nabor Jaramillo
[2019-04-23] MEDS ORDERED: GLUCAGON FOR INJ 1 MG VIAL IM PRN (14:30)
[2019-04-23] MEDS ORDERED: CARBOHYDRATES FOR HYPOGLYCEMIA PO PRN (14:30)
[2019-04-23] MEDS ORDERED: GLUCOSE 10 TABS/TUBE PO PRN (14:30)
[2019-04-23] MEDS ORDERED: GLUCOSE 40% GEL 15 GM TUBE PO PRN (14:30)
[2019-04-23] MEDS ORDERED: DEXTROSE 50% 50 ML SYRINGE IV PRN (14:30)
[2019-04-23 14:41] LABS: Influenza A virus by PCR Neg for Influ A (Neg); Influenza B virus by PCR Neg for Influ B (Neg)
[2019-04-23] MEDS ORDERED: DIGOXIN 0.125 MG TAB PO SCH (16:00)
--- NOTE | 2019-04-23 16:03 | Hospitalist Progress Note ---
Date of Service April 23, 2019 Assessment & Plan (1) Hypoxia: Reported to have an O2 sat of 70% at her SNF; however, she has been 90%+ this entire admission. Cardiology do not feel she is overloaded, so pulmonary edema is unlikely. - Continue CPAP overnight - Monitor (2) AMBER (acute kidney injury): Looks to have AMBER vs. baseline worsening of her Cr. In 01/2019, her Cr was ~1.0. - Cr was 1.8 on admission, but also had prior Cr in the 1.7 range in 03/2019. - Lower diuresis for being euvolemic - Monitor Cr (3) Hypothyroidism: TSH over 100 in 03/2019 and again on admission. Patient was started recently on levothyroxine 25 mcg PO daily; however, this is probably underdosing her substantially. Per UpToDate, you generally want 1.6 mcg/kg per day. Likely correlates with ideal body weight rather than her actual weight given her obesity. As such, an ideal body weight of ~70 kg for her height, this would be ~112 mcg/day for her. - Increased levothyroxine to 112 mcg PO daily. - Recheck thyroid labs in 4-6 weeks. (4) Lethargic: Per notes, has been more lethargic in the last few weeks. - Likely component of hypothyroidism - TSH still elevated compared to 1 month ago. - May also be component of obesity hypoventilation syndrome and dementia (5) Diabetes: A1c was 7.0% this admission. - Sliding scale insulin - Diabetic diet (6) CHF (congestive heart failure): The patient does not appear to be in acute exacerbation. Weight is stable, and BNP is normal. - Continue home diuretic dose (7) Morbid obesity with BMI of 45.0-49.9, adult: Patient advised to try to lose some weight if possible. At this point it is difficult to expect that patient at the age of 89 with severe Alzheimer dementia has very good control over her eating habits. - Recommended to caregivers dietary adjustments and possibly more passive access. (8) AF (paroxysmal atrial fibrillation): She has been in sinus rhythm here. - Continue apixaban (dose reduced to 2.5 mg PO BID due to age and renal function) - Continue amiodarone and digoxin Subjective Wakes up relatively well for me. She overall does not have any complaints and cannot recall why she is in the hospital. Reports no fevers/chills, chest pain, shortness of breath, abdominal pain, nausea, or vomiting. Physical Exam Constitutional: WD/WN, vitals as above + obese and + lethargic Eyes: EOM intact bilaterally; no conjunctival abnormality ENMT: external ear and nose normal, oropharynx normal Neck: trachea midline, no thyromegaly normal visual inspection Respiratory: normal respiratory effort, lungs clear to auscultation no respiratory distress Cardiovascular: RRR, no murmur, no edema Gastrointestinal (Abdomen): Inspection/Auscultation: abdomen normal to inspection; abdomen not distended Musculoskeletal: no cyanosis or clubbing, extremities motor strength 5/5 Skin: no rashes, warm and dry Neurologic: moves all extremities and awake Psychiatric: Orientation: alert, oriented to person and cooperative Results & Data Vital Signs (Past 12 Hours) Vital Signs Temp Pulse Pulse Resp BP BP Pulse Ox 04/23/19 15:33 36.7 C 63 18 116/68 95 04/23/19 11:58 36.8 C 62 20 129/75 93 04/23/19 10:05 110/68 04/23/19 08:01 60 142/64 H 117/62 90 04/23/19 07:59 36.4 C L 60 20 89/49 L 96 04/23/19 07:45 62 04/23/19 07:06 90 16 95 04/23/19 04:11 36.6 C 61 20 114/80 93 PG Care Time/CCT Total # of Minutes Spent Total Time Spent with Patient: Total time spent is greater than 50% in coordination of care (as documented) at patient's floor/unit and/or counseling patient: (1) CHF (congestive heart failure) Heart failure chronicity: acute Heart failure type: unspecified Qualified Code(s): I50.9 - Heart failure, unspecified
[2019-04-23] MEDS: INSULIN ASPART 100 UNITS/ML 3 ML PEN SC SCH ×2 (17:30→20:36)
[2019-04-23] MEDS: APIXABAN 2.5 MG TAB PO SCH (20:32)
[2019-04-23] MEDS: DONEPEZIL HCL 10 MG TAB PO SCH (20:33)
[2019-04-23] MEDS: FLUTICASONE/SALMETEROL (ADVAIR) 500/50 INH 14 PUFF INH SCH (20:33)
[2019-04-24] MEDS ORDERED: LEVOTHYROXINE SODIUM 112 MCG TABLET PO SCH (06:30)
[2019-04-24 06:43] LABS: Basophils # (auto) 0.06 K/uL (0-0.2); Basophils % (auto) 0.7 %; Eosinophils # (auto) 0.31 K/uL (0-0.5); Eosinophils % (auto) 3.8 %; Hematocrit (blood only) 43.2 % (37-47); Hemoglobin 13.5 g/dL (12.0-16.0); Immature Granulocytes # (auto) 0.05 K/uL (0.00-0.02); Immature Granulocytes % (auto) 0.6 %; Lymphocytes % (auto) 28.5 %; Mean Corpuscular Hemoglobin 31.5 pg (25-34); Mean Corpuscular Hgb Conc 31.3 g/dL (32-36); Mean Corpuscular Volume 100.7 fL (80-100); Mean Platelet Volume 10.3 fL (7.4-10.4); Monocytes # (auto) 0.71 K/uL (0.11-0.59); Monocytes % (auto) 8.8 %; Neutrophils # (auto) 4.64 K/uL (1.4-6.5); Neutrophils % (auto) 57.6 %; Platelet Count 177 K/uL (130-400); RDW Coefficient of Variation 16.2 % (11.5-14.5); RDW Standard Deviation 59.9 fL (36.4-46.3); Red Blood Count 4.29 M/uL (4.2-5.4); White Blood Count 8.07 K/uL (4.8-10.8)
[2019-04-24] MEDS: BUDESONIDE 0.5 MG/2 ML VIAL (PULMICORT) INH SCH (07:03)
[2019-04-24 07:18] LABS: Albumin Level 2.7 gm/dl (3.4-5.0); Calcium 8.7 mg/dl (8.5-10.1); Creatinine Clr Calc Pharmacy 31.7 ml/min; Est GFR (Non-African American) 27.6; Potassium 3.6 mmol/L (3.5-5.1)
[2019-04-24 07:21] LABS: Albumin Globulin Ratio 0.8 (0.9-2); Bilirubin,Total 0.6 mg/dl (0.2-1); Globulin 3.4 gm/dl (2.5-4.0); Total Protein 6.1 gm/dl (6.4-8.2)
[2019-04-24] MEDS: FLUTICASONE/SALMETEROL (ADVAIR) 500/50 INH 14 PUFF INH SCH (08:10)
[2019-04-24] MEDS: SPIRONOLACTONE 25 MG TAB PO SCH (08:13)
[2019-04-24] MEDS: AMIODARONE 200 MG TAB PO SCH (08:13)
[2019-04-24] MEDS: CALCIUM 600MG + VIT D 400 IU TAB PO SCH (08:13)
[2019-04-24] MEDS: METOPROLOL SUCC 50MG EXT REL TAB PO SCH (08:14)
[2019-04-24] MEDS: APIXABAN 2.5 MG TAB PO SCH (08:14)
[2019-04-24] MEDS: MEMANTINE HCL 5 MG TAB PO SCH (08:14)
[2019-04-24] MEDS: SERTRALINE HCL 100 MG TABLET PO SCH (08:14)
[2019-04-24] MEDS: POTASSIUM CHLORIDE 20 MEQ TABCR PO SCH (08:14)
[2019-04-24] MEDS ORDERED: FUROSEMIDE 80 MG TAB PO SCH (09:00)
[2019-04-24] MEDS: INSULIN ASPART 100 UNITS/ML 3 ML PEN SC SCH ×2 (09:37→12:42)
--- NOTE | 2019-04-24 17:19 | Discharge Summary ---
Date of Service April 24, 2019 Admission HPI Per Admitting Provider Patient is a 89 years old female with past medical history of hypertension, severe Alzheimer dementia, obstructive sleep apnea, paroxysmal A atrial fibrillation, depression, congestive heart failure diastolic type, morbid obesity, hypothyroidism, who was brought to the emergency room by her caregiver stating that she was concerned about patient having volume overload and at care home informed the patient that her oxygen levels are dropping below 70s and she is very lethargic and borderline unresponsive. Patient was brought by EMS in the transport she will receive supplemental oxygen and was able to keep her oxygen level above 95%. Patient daughter who takes care of her as well said that patient wears oxygen only at night. Patient had no conical fall approximately 10 days ago. Patient is very poor historian and it is difficult to obtain review of systems from her due to her underlying severe Alzheimer dementia but at this point of time patient denies any chest pain and abdominal pain. Patient daughter said that patient is on Eliquis and digoxin. And she was started on new thyroid medication. Labs are reviewed WBC is 8.62, hemoglobin 13.8, hematocrit 43.4 platelets 170. PT 12.4, INR 1.2, APTT 29.2. Sodium 142, potassium 3.3, chloride 104, creatinine 1.79 which is worsening from the patient baseline which is 1.29 and GFR is 25. In March patient GFR was 37.2. AST 52, ALT 25, TSH on April 03 was 109.000, today TSH is pending. BNP is pending. Urine is completely clear. Chest x-ray shows cardiomegaly with mild volume overload and congestive changes. No branden pulmonary edema. This chest x-rays are similar to the prior one. Mildly low lung volumes. Decision was made to admit patient for observation for altered mental status, possibly volume overload at [facility] on telemetry Principal Diagnosis Lethargy and hypoxemia Discharge Exam Constitutional WD/WN, vitals as above + obese and + lethargic Eyes EOM intact bilaterally; no conjunctival abnormality ENMT external ear and nose normal, oropharynx normal Neck trachea midline, no thyromegaly normal visual inspection Respiratory normal respiratory effort, lungs clear to auscultation no respiratory distress Cardiovascular RRR, no murmur, no edema Gastrointestinal (Abdomen) Inspection/Auscultation: abdomen normal to inspection; abdomen not distended Musculoskeletal no cyanosis or clubbing, extremities motor strength 5/5 Skin no rashes, warm and dry Neurologic moves all extremities and awake Psychiatric Orientation: alert, oriented to person and cooperative Discharge Data Allergies Allergy/AdvReac Type Severity Reaction Status Date / Time No Known Drug Allergies Allergy Verified 04/22/19 13:29 Consultations 04/22/19 17:05 ED Decision to Admit Stat 04/22/19 21:25 Consult Cardiology Routine Consult Case Management - Discharge Planning Routine Ordered Studies 04/22/19 19:37 CT head/brain wo con Stat Hospital Course (1) Hypoxia: Reported to have an O2 sat of 70% at her SNF; however, she has been 90%+ this entire admission. Cardiology do not feel she is overloaded, so pulmonary edema is unlikely. - I think they maybe was an episode of apnea related to her fatigue. When she was awake and talkative, her O2 sat was >90% all the time. - Continue CPAP overnight & as needed if tired and low oxygen during the day. (2) AMBER (acute kidney injury): Looks to have AMBER vs. baseline worsening of her Cr. In 01/2019, her Cr was ~1.0. - Cr was 1.8 on admission, but also had prior Cr in the 1.7 range in 03/2019. - Lower diuresis for being euvolemic - Monitor Cr -> Stable on discharge. Will probably need a BMP next week just to determine how Cr is trending. Can work with Lynette Alex on diuretic dosing to prevent worsening Cr. (3) Hypothyroidism: TSH over 100 in 03/2019 and again on admission. Patient was started recently on levothyroxine 25 mcg PO daily; however, this is probably underdosing her substantially. Per UpToDate, you generally want 1.6 mcg/kg per day. Likely correlates with ideal body weight rather than her actual weight given her obesity. As such, an ideal body weight of ~70 kg for her height, this would be ~112 mcg/day for her. - Increased levothyroxine to 112 mcg PO daily. - Recheck thyroid labs in 4-6 weeks. (4) Lethargic: Per notes, has been more lethargic in the last few weeks. - Likely component of hypothyroidism - TSH still elevated compared to 1 month ago. - May also be component of obesity hypoventilation syndrome and dementia (5) Diabetes: A1c was 7.0% this admission. - Sliding scale insulin - Diabetic diet (6) CHF (congestive heart failure): The patient does not appear to be in acute exacerbation. Weight is stable, and BNP is normal. - Continue home diuretic dose (7) Morbid obesity with BMI of 45.0-49.9, adult: Patient advised to try to lose some weight if possible. At this point it is difficult to expect that patient at the age of 89 with severe Alzheimer dementia has very good control over her eating habits. - Recommended to caregivers dietary adjustments and possibly more passive access. (8) AF (paroxysmal atrial fibrillation): She has been in sinus rhythm here. - Continue apixaban (dose reduced to 2.5 mg PO BID due to age and renal function) - Continue amiodarone and digoxin Total Time Total Time Spent Total Time Spent (In Minutes): 35 Discharge Plan Discharge Items Patient Disposition: Trans Resident Long-Term Care Reason For Visit: UTI,LETHARGIC,ALTERED MENTAL STATUS Discharge Diagnosis: Low oxygen level and lethargy Activity: Resume your previous activity Non-emergency contact: Primary Care Provider Call non-emergency contact if: your symptoms worsen [facility] - Diet: Heart Healthy Addtl Attending Provider Instructions: Ms. Stover was sent to the hospital for lethargy and low oxygen levels. 1) For lethargy, likely her hypothyroid compounded by the low oxygen level. We increased her Synthroid substantially (to better fit UpToDate recommendations) and because her TSH had not changed since starting Synthroid 1 month ago. 2) For low oxygen levels, she was not felt to be volume overloaded and stayed on her home diuretic regimen. Cardiology saw her. Possibly her low O2 level was from sleep apnea and her lethargy. Her O2 level was normal the entire admission on room air and on her CPAP at night. If her O2 levels go low again, put her CPAP on and attempt to arouse her. If the O2 level returns to normal and she wakes up more, I do not think she would need to be sent to the hospital. If she has continued low O2 level or is unarousable, the [facility] staff will have to make that determination. Given her advanced dementia and multiple medical issues, a hospice consult could be considered once she is back at [facility]. Pending Studies at Discharge: No Stand-Alone Forms: My [facility] Skilled Items Patient informed of condition?: Yes DNR: Yes Discharge Level of Care: Skilled Communicable Disease: No Discharge Prognosis: Stable Lines: None Urinary Catheter: No Medications and DC Order Prescriptions: New levothyroxine [Synthroid] 112 mcg Tablet 112 mcg PO DAILYBB Qty: 0 RF: 0 Continued ipratropium-albuterol 0.5 mg-3 mg(2.5 mg base)/3 mL solution for nebulization 3 ml INHALATION Q6 PRN (Reason: Shortness Of Breath Or Wheezing) Qty: 90 RF: 1 Eliquis 5 mg tablet 5 mg PO BID Qty: 60 RF: 5 Breo Ellipta 200-25 mcg/dose blister with device 1 inh INHALATION DAILY Qty: 60 RF: 5 digoxin 125 mcg (0.125 mg) tablet 0.125 mcg PO QAM Qty: 30 RF: 5 metoprolol succinate 200 mg tablet extended release 24 hr 200 mg PO QAM Qty: 30 RF: 5 potassium chloride [Klor-Con M20] 20 mEq tablet,ER particles/crystals 40 meq PO TID Qty: 180 RF: 5 spironolactone 25 mg tablet 25 mg PO DAILY Qty: 15 RF: 5 omeprazole 20 mg capsule,delayed release(DR/EC) 20 mg PO DAILY Qty: 30 RF: 2 sertraline 100 mg tablet 100 mg PO QAM Qty: 30 RF: 5 docusate sodium 100 mg capsule 100 mg PO BID PRN (Reason: Constipation) RF: 0 acetaminophen 500 mg capsule 500 mg PO Q4H MDD 3 GRAMS/24 HOURS PRN (Reason: Pain/fever) RF: 0 furosemide 80 mg tablet 80 mg PO BID RF: 0 sennosides [senna] 8.6 mg Tablet 8.6 mg PO DAILY PRN (Reason: Constipation) RF: 0 albuterol sulfate 2.5 mg /3 mL (0.083 %) Solution For Nebulization 2.5 mg INHALATION QID PRN (Reason: Wheezing) RF: 0 bisacodyl 10 mg Suppository 10 mg MO DAILY PRN (Reason: Constipation) RF: 0 Fleet Enema 19-7 gram/118 mL Enema 118 ml MO DAILY PRN (Reason: Constipation) RF: 0 amiodarone 200 mg tablet 200 mg PO QAM RF: 0 memantine [Namenda] 5 mg tablet 5 mg PO QAM RF: 0 metolazone 2.5 mg tablet 2.5 mg PO 3XWK RF: 0 budesonide 0.5 mg/2 mL suspension for nebulization 2 ml inhalation BID RF: 0 calcium carbonate-vitamin D3 [Oyster Shell Calcium-Vit D3] 500 mg(1,250mg) - 200 unit Tablet 1 tab PO DAILY RF: 0 loperamide 2 mg Capsule 2 mg PO Q4 PRN (Reason: Diarrhea) RF: 0 donepezil [Aricept] 10 mg tablet 10 mg PO HS RF: 0 nystatin 100,000 unit/gram Powder 1 applic TOPICAL TID PRN (Reason: Rash) RF: 0 ondansetron HCl [Zofran] 4 mg Tablet 4 mg PO Q4H PRN (Reason: Nausea) RF: 0 diphenhydramine HCl [Benadryl] 25 mg Capsule 25 mg PO Q6 PRN (Reason: Itching/RASH) RF: 0 Discontinued levothyroxine 25 mcg tablet 25 mcg PO DAILY Qty: 30 RF: 5 Discharge Orders: Discharge Order (Routine); Ordered 04/24/19 Ordered By: Jan Luther/Other Patient Handouts: A1C Admission Data Admit Date/Time: 04/23/19 15:43 Attending Provider: Jan Almeida Admit Provider: Aguila Lilly Primary Care Provider: Chantell Other Providers: Nabor Jaramillo ; Jan Almeida Other Interventions: Discharge Summary Assessment (RN) Last Done: 04/24/19 13:20 DC Date/Time DO NOT enter until pt leaves facility: 04/24/19 14:00
--- NOTE | 2019-04-29 11:10 | Coding Query ---
To promote full compliance with coding requirements relating to patient care, provider participation is requested in all cases of gold leaf printer uncertainty. Please assist us with the question(s) below: Coding Question(s): The diagnosis below was documented in the H&P, then subsequently fell off all further documentation. Please indicate if it is still a possible diagnosis or ruled out. Physician's Response(s): ACUTE RESPIRATORY FAILURE ( ) Diagnosed and POA ( ) Diagnosed and not POA ( x ) Ruled out - No respiratory distress when in our hospital. Just reported at SNF, but I cannot in good jimy document that as an issue present on arrival. ( ) Other (please specify) MTDD
== END 2019-04-24 14:00 | disposition home or self-care (01) | DRG 644 ==
LOC: ED 11:36 → 2W 11:36 → SUATTDRO 19:44 → 2W 20:36

== ENCOUNTER 2019-06-16 13:42 | Inpatient (IN) ==
[2019-06-16] MEDS ORDERED: ALBUT/IPRATROP 3MG/0.5MG NEB 3 ML VIAL NEB STA (14:26)
[2019-06-16] MEDS ORDERED: DEXAMETHASONE SOD PHOSPHATE 10 MG in SYRINGE 0 ML IV STA (14:26)
--- NOTE | 2019-06-16 15:12 | XRay Report ---
XR chest 1V portable HISTORY: SEPSIS COMPARISON: Chest 04/22/2019. FINDINGS: No pneumothorax. No pleural effusions. There are low lung findings. Left-sided dual-chamber pacemaker. The heart remains enlarged. Mild interstitial thickening has improved. This suggests reso lving congestive change. Old, healed left humeral fracture. IMPRESSION: Stable cardiomegaly with resolving mild congestive change. ACT 112: Negative or not required by law. Electronically signed by: Jordon Espinal M.D. 06/16/2019 3:11 PM
[2019-06-16] MEDS ORDERED: DEXAMETHASONE **PF** INJ 10 MG/ML VIAL ONE (15:21)
[2019-06-16 15:42] LABS: HCO3 ABG 32 mmol/L (19-24); Oxygen Saturation ABG 87.1 % (90-95); PCO2 ABG 44 mmHg (35-46); PO2 ABG 50 mmHg (80-95); pH ABG 7.49 (7.35-7.45)
[2019-06-16 15:43] LABS: Allen Test Pos (Pos); INR 1.2 (0.9-1.1); Partial Thromboplastin Ratio 1.1; Partial Thromboplastin Time 29.6 Seconds (21.0-31.0); Prothrombin Time 12.3 Seconds (9.0-12.0)
[2019-06-16 15:56] LABS: Alanine Aminotransferase 26 U/L (12-78); Albumin Level 2.8 gm/dl (3.4-5.0); Aspartate Aminotransferase 34 U/L (15-37); BUN Creatinine Ratio 12.4 (10-20); Blood Urea Nitrogen 20 mg/dl (7-18); Calcium 9.1 mg/dl (8.5-10.1); Carbon Dioxide 29 mmol/L (21-32); Chloride 106 mmol/L (98-107); Est GFR (Non-African American) 28.5; Glucose 122 mg/dl (70-99); Potassium 4.1 mmol/L (3.5-5.1); Sodium 142 mmol/L (136-145)
[2019-06-16 16:00] LABS: Hematocrit (blood only) 41.7 % (37-47); Hemoglobin 13.4 g/dL (12.0-16.0); Mean Corpuscular Hemoglobin 32.6 pg (25-34); Mean Corpuscular Hgb Conc 32.1 g/dL (32-36); Mean Corpuscular Volume 101.5 fL (80-100); Platelet Count 202 K/uL (130-400); RDW Coefficient of Variation 17.1 % (11.5-14.5); RDW Standard Deviation 63.6 fL (36.4-46.3); Red Blood Count 4.11 M/uL (4.2-5.4); White Blood Count 8.29 K/uL (4.8-10.8)
[2019-06-16 16:01] LABS: Anisocytosis Present; Basophils # (auto) 0.05 K/uL (0-0.2); Basophils % (auto) 0.6 %; Eosinophils # (auto) 0.04 K/uL (0-0.5); Eosinophils % (auto) 0.5 %; Immature Granulocytes # (auto) 0.14 K/uL (0.00-0.02); Immature Granulocytes % (auto) 1.7 %; Lymphocytes # (auto) 1.66 K/uL (1.2-3.4); Monocytes # (auto) 0.73 K/uL (0.11-0.59); Monocytes % (auto) 8.8 %; Neutrophils # (auto) 5.67 K/uL (1.4-6.5); Neutrophils % (auto) 68.4 %; Platelet Estimate Normal (Normal)
[2019-06-16 16:28] LABS: Influenza A virus by PCR Neg for Influ A (Neg); Influenza B virus by PCR Neg for Influ B (Neg)
[2019-06-16 16:28] LABS: Albumin Globulin Ratio 0.7 (0.9-2); Alkaline Phosphatase 59 U/L (45-117); Bilirubin,Total 0.5 mg/dl (0.2-1); Globulin 3.9 gm/dl (2.5-4.0); NT Pro B Type Natriuretic Pept 1741 pg/ml (0-1800); Total Protein 6.7 gm/dl (6.4-8.2); Troponin I 0.049 ng/ml (0-0.045)
[2019-06-16] MEDS ORDERED: cefTRIAXone SODIUM 2,000 MG/70 ML BAG IV STA (16:34)
[2019-06-16] MEDS ORDERED: DOXYCYCLINE HYCLATE 100 MG in DEXTROSE 5% 100 ML IV STA (16:34)
[2019-06-16] MEDS ORDERED: FUROSEMIDE 40 MG/4 ML VIAL IV STA (16:34)
[2019-06-16 17:55] LABS: Appearance Urine Clear (Clear); Bacteria Urine Automated 1+ (Negative); Bilirubin Urine Negative (Negative); Blood Urine Trace (Negative); Color Urine Yellow; Epithelial Cell Urine Auto 0-5 /lpf (0-5); Glucose Urine UA Negative (Negative); Ketones Urine Negative (Negative); Leukocyte Esterase Urine 2+ (Negative); Nitrite Urine Negative (Negative); Protein Urine Negative (Negative); Specific Gravity Urine 1.012 (1.000-1.030); Urobilinogen Urine Negative (Negative); WBC Urine Automated >30 /hpf (0-5); pH Urine 6.5 (4.5-7.5)
--- NOTE | 2019-06-16 18:15 | History & Physical Report ---
Date of Service June 16, 2019 Assessment & Plan (1) Bronchitis: Started ceftriaxone and (2) Acute exacerbation of CHF (congestive heart failure): Admit to PCU on telemetry Vital signs every 4 hours Troponin mildly elevated, trended down x3 with EKG. Probably due to demand ischemia. Started ceftriaxone for urinary tract infection, and aspiration PNA in addition to Doxy 100 mg IB BID and Metronidazole 500 mg Q8hr. Duonebs Q4hr/sc/prn Solumedrol 40 mg iV BID and trend down. Strict in and out Daily weight Lasix 40mg IV twice daily switched from home Lasix 80 mg p.o. twice daily DVT prophylaxis SCDs and teds, Eliquis 5 mg p.o. every 12 hours Continue amiodarone 200 mg p.o. every morning, continue atropine 2 drops sublingual every 1 hour as needed, continue digoxin 125 MCG's p.o. every morning, continue donepezil 10 mg p.o. nightly, (3) UTI (urinary tract infection): Started empirically ceftriaxone 2 g IV daily per previous sensitivity. Urine culture pending for sensitivity and specificity. Present on Admission?: Yes (4) Diabetes: Last A1c was 7, continue controlling diabetes mellitus with diet. (5) Hypothyroidism: TSH significantly improved from the previous visit. T4 pending. Continue current dose of levothyroxine which is 125 MCG's p.o. every morning. Present on Admission?: Yes (6) AF (paroxysmal atrial fibrillation): Continue Eliquis 5 mg p.o. every 12 hours. Present on Admission?: Yes (7) Apnea, sleep: May use her own CPAP Present on Admission?: Yes (8) CKD (chronic kidney disease), stage III: At the baseline Cr 1,58-->1.61. Contine monitoring, avoid nephrotoxic agents. Present on Admission?: Yes History of Present Illness Chief Complaint: Confusion and fever Primary Care Provider: Chantell The patient is an 89 years old female with past medical history of congestive heart failure, chronic diastolic respiratory failure, dysphagia, morbid obesity, cardiac pacemaker, atrial fibrillation, obstructive sleep apnea, hypertension, Alzheimer disease, on hospice [facility] since March 2019, who was sent to the hospital for evaluation of her fever and worsening cough, congestion, fever and chills. Patient is poor historian and limited to ROS due to profound Alzheimer dementia. Patient is chronically on supplemental oxygen 3 L. Labs are reviewed: WBC is 8.29, hemoglobin 13.4, hematocrit 41.7, platelets 202, PT 12.3, INR 1.2, APTT 29.6, ABG 7.49, PO2 50, HCO3 32, PCO2 244, lactate 1.7, troponin 0.0 49, BNP 1729, albumin 2.8, TSH 6.7, T4 pending. Urine blood trace, leukocyte Estrace 2+, urine WBCs 30, urine RBCs 5-10, epithelial cells 0-5, urine bacteria 1+, negative for influenza A&B. Chest x-rays stable cardiomegaly with resolved mild congestive changes. Decision was made to admit patient to PCU on telemetry for acute on chronic respiratory failure, acute UTI and possibly aspiration pne umonia. Allergies Allergy/AdvReac Type Severity Reaction Status Date / Time No Known Allergies Allergy Verified 06/16/19 17:03 Home Medications Home Medications Medication Instructions Recorded Confirmed Type donepezil [Aricept] 10 mg PO HS 06/20/18 06/16/19 History loperamide 2 mg PO Q4H PRN 06/20/18 06/16/19 History nystatin 1 applic TOPICAL TID PRN 06/20/18 06/16/19 History acetaminophen 500 mg capsule 500 mg PO Q4H PRN MDD 3 GRAMS/24 01/03/19 06/16/19 History HOURS docusate sodium 100 mg capsule 100 mg PO BID PRN 01/22/19 06/16/19 History albuterol sulfate 2.5 mg INHALATION QID PRN 01/28/19 06/16/19 History amiodarone 200 mg PO QAM 01/28/19 06/16/19 History bisacodyl 10 mg OH DAILY PRN 01/28/19 06/16/19 History memantine [Namenda] 5 mg PO QAM 01/28/19 06/16/19 History sennosides [senna] 8.6 mg PO DAILY PRN 01/28/19 06/16/19 History furosemide 80 mg tablet 80 mg PO BID tab 01/30/19 06/16/19 History fluticasone furoate 200 1 inh INHALATION DAILY #60 ea 02/05/19 06/16/19 Rx mcg-vilanterol 25 mcg/dose inhalation powder digoxin 125 mcg (0.125 mg) tablet 0.125 mcg PO QAM #30 tab 02/10/19 06/16/19 Rx metoprolol succinate 200 mg 200 mg PO QAM #30 tab 02/11/19 06/16/19 Rx tablet,extended release 24 hr potassium chloride 20 mEq 40 meq PO TID #180 tab 02/11/19 06/16/19 Rx tablet,extended release(part/cryst) sertraline 100 mg tablet 100 mg PO QAM #30 tab 03/17/19 06/16/19 Rx budesonide 2 ml INHALATION BID 04/22/19 06/16/19 History calcium carbonate-vitamin D3 1 tab PO QAM 04/22/19 06/16/19 History [Oyster Shell Calcium-Vit D3] metolazone 2.5 mg tablet 2.5 mg PO 3XWK #12 tab 05/01/19 06/16/19 Rx miscellaneous medical supply #1 ea 05/13/19 05/29/19 Rx Eliquis 5 mg PO Q12H 06/16/19 06/16/19 History acetaminophen 650 mg OH Q4H PRN MDD 3 GRAMS/06/16/19 06/16/19 History HOURS atropine 2 drp SUBLINGUAL Q1H PRN 06/16/19 06/16/19 History diphenhydramine HCl [Banophen] 25 mg PO Q6H PRN 06/16/19 06/16/19 History ipratropium-albuterol 3 ml INHALATION Q6H PRN 06/16/19 06/16/19 History levothyroxine 125 mcg PO QAM 06/16/19 06/16/19 History morphine 10 mg SUBLINGUAL Q2H PRN 06/16/19 06/16/19 History omeprazole 20 mg PO QAM 06/16/19 06/16/19 History ondansetron 4 mg PO Q4H PRN 06/16/19 06/16/19 History spironolactone 25 mg PO QAM 06/16/19 06/16/19 History Past Med/Surg History Medical History AF (paroxysmal atrial fibrillation) (Chronic) Alzheimers disease (Chronic) Apnea, sleep (Chronic) Asthma (Chronic) Atrial fibrillation with rapid ventricular response (Resolved) Cardiac pacemaker (Chronic) Dementia Depression (Chronic) Diastolic congestive heart failure (Chronic) Diastolic dysfunction (Chronic) DVT prophylaxis (Resolved) Enterococcal bacteremia (Resolved) Glaucoma High cholesterol Hypertension (Chronic) Hypokalemia (Resolved) Hypokalemia (Chronic) Hypothyroidism 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) Obesity Situational anxiety (Chronic) Urinary incontinence (Chronic) Surgical History History of arthroscopic knee surgery History of eye surgery History of permanent cardiac pacemaker placement History of umbilical hernia repair Family History Denies family history of Ovarian cancer Prostate cancer Myocardial infarction Breast cancer Colorectal cancer Social History Preferred Language: Wallisian Communication Ability: Effective [employer] 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: No Beliefs That Will Affect Care: None marital status: / Current Living Situation: Assisted Current Living Situation Comment: [facility] Other Information That Helps Us Care for You: No Feels Safe at Home: Yes Safety Concerns: Feels Safe At This Time Smoking Status: Never smoker Hx Alcohol Use: No Hx Substance Use: No Review of Systems Review of Systems: All systems reviewed & are unremarkable except as noted in HPI & below Physical Exam Constitutional: WD/WN, vitals as above well developed and + morbidly obese Eyes: PERRL, conjunctivae normal, anicteric sclerae ENMT: external ear and nose normal, oropharynx normal Neck: trachea midline, no thyromegaly Respiratory: + respiratory distress, + labored breathing and + uses accessory muscles Cardiovascular: Rate/Rhythm: + irregularly irregular Heart Sounds: normal S1 and normal S2 Palpation: + palpable S3 Vessels: dorsalis pedis pulses present Extremities: + pedal edema Gastrointestinal (Abdomen): normal bowel sounds, soft, nontender, no hepatosplenomegaly Musculoskeletal: no cyanosis or clubbing, extremities motor strength 5/5 Skin: no rashes, warm and dry Neurologic: PERRL, EOMI, accommodation nl, no face palsy, no dysarthria Psychiatric: Judgement: + limited judgement Lymphatic: no cervical or axillary lymphadenopathy Results & Data Vital Signs (Past 12 Hours) Vital Signs Temp Pulse Pulse Resp BP Pulse Ox 06/16/19 16:45 61 21 95 06/16/19 16:30 61 20 96 06/16/19 16:15 70 21 91 06/16/19 16:00 60 18 94 06/16/19 15:45 60 22 93 06/16/19 15:30 60 18 89 L 06/16/19 15:15 60 26 H 90 06/16/19 15:00 59 L 22 06/16/19 14:45 60 21 98 06/16/19 14:40 60 18 94 06/16/19 14:30 60 19 94 06/16/19 14:15 60 26 H 94 06/16/19 14:01 61 21 96 06/16/19 13:54 37.0 C 66 26 H 131/65 98 06/16/19 13:52 62 20 131/65 94 Code Status & VTE Plan Code Status DNR/DNI VTE Prophylaxis Plan VTE Prophylaxis will be ordered: Yes PG Care Time/CCT Total # of Minutes Spent Total Time Spent with Patient: Total time spent is greater than 50% in coordination of care (as documented) at patient's floor/unit and/or counseling patient: Coding Level of Care Code 74187 Initial Inpt Care Lvl 3 Diagnoses Bronchitis J40 Acute exacerbation of CHF (congestive heart failure) I50.9 UTI (urinary tract infection) N39.0 Hematuria presence: without hematuria Urinary tract infection type: site unspecified Diabetes E11.9 Hypothyroidism E03.9 AF (paroxysmal atrial fibrillation) I48.0 Apnea, sleep G47.33 Sleep apnea type: obstructive CKD (chronic kidney disease), stage III N18.3 (1) UTI (urinary tract infection) Hematuria presence: without hematuria Urinary tract infection type: site unspecified Qualified Code(s): N39.0 - Urinary tract infection, site not specified (2) Apnea, sleep Sleep apnea type: obstructive Qualified Code(s): G47.33 - Obstructive sleep apnea (adult) (pediatric)
[2019-06-16] MEDS ORDERED: MAGNESIUM HYDROXIDE SUSP 30 ML UDC PO PRN (19:50)
[2019-06-16] MEDS ORDERED: ALBUT/IPRATROP 3MG/0.5MG NEB 3 ML VIAL INH PRN (19:50)
[2019-06-16] MEDS ORDERED: ALBUTEROL 0.083% NEBU SOLN 3 ML VIAL INH PRN (19:50)
[2019-06-16] MEDS ORDERED: ALUMINUM/MAGNESIUM SUSP 30 ML UDC PO PRN (19:50)
[2019-06-16] MEDS ORDERED: ONDANSETRON 4 MG OD TAB PO PRN (19:50)
[2019-06-16] MEDS ORDERED: SENNA 8.6 MG TAB PO PRN (19:50)
[2019-06-16] MEDS ORDERED: ACETAMINOPHEN 650 MG SUPP PR PRN (19:50)
[2019-06-16] MEDS ORDERED: LOPERAMIDE HCL 2 MG CAP PO PRN (19:50)
[2019-06-16] MEDS ORDERED: NYSTATIN POWDER 15GM BTL EXT PRN (19:50)
[2019-06-16] MEDS ORDERED: POLYETHYLENE (MIRALAX) 17 GM PACK PO PRN (19:50)
[2019-06-16] MEDS ORDERED: bisacodyL 10 MG SUPP PR PRN (19:50)
[2019-06-16] MEDS ORDERED: NITROGLYCERIN SL 0.4 MG/TAB TAB SL PRN (19:50)
[2019-06-16] MEDS ORDERED: FLUTICASONE/VILANTEROL 200/25MCG 14 PUFFS/INHALER INH SCH (19:50)
[2019-06-16] MEDS ORDERED: ONDANSETRON INJ 2 MG/ML 2 ML VIAL IV PRN (19:50)
[2019-06-16] MEDS ORDERED: ATROPINE SULFATE 1% OP SOLN 2 ML BTL SL PRN (19:50)
[2019-06-16] MEDS ORDERED: DOCUSATE SODIUM 100 MG CAP PO PRN (19:50)
[2019-06-16] MEDS ORDERED: ACETAMINOPHEN 325 MG TAB PO PRN (19:50)
[2019-06-16] MEDS ORDERED: MoRPHine SULFATE 10 MG/0.5 ML UDP PO PRN (20:34)
[2019-06-16 20:39] LABS: Thyroid Stimulating Hormone 6.7 uIu/ml (0.300-4.500); Troponin I 0.043 ng/ml (0-0.045)
[2019-06-16] MEDS: DONEPEZIL HCL 10 MG TAB PO SCH (20:47)
[2019-06-16] MEDS: POTASSIUM CHLORIDE 20 MEQ TABCR PO SCH (20:48)
[2019-06-16] MEDS: BUDESONIDE 0.5 MG/2 ML VIAL (PULMICORT) INH SCH (20:57)
[2019-06-16] MEDS ORDERED: FUROSEMIDE 40 MG/4 ML VIAL IV SCH (21:00)
[2019-06-16] MEDS ORDERED: methylPREDNISolone 40 MG in SYRINGE 0 ML IV SCH (21:00)
--- NOTE | 2019-06-16 21:37 | Emergency Department Note ---
Entered by Loco Pisano acting as a scribe for Miller Lou MD History of Present Illness General Chief complaint: Illness Time Seen by Provider: 06/16/19 14:06 Source: EMS History of Present Illness Provider complaint: fever Onset (ago): hour(s) less than 1 Location: head Radiation: non-radiation Pain Consistency: + intermittent Quality: + other (100.5) Relieved By: + medication Exacerbated By: + none The patient is an 89 y/o female who presents to the emergency department from [facility] for evaluation of intermittent fever of 100.5 that began prior to arrival. The patients family noted to EMS the patient has dementia chronically and recently a cough, congestions, and fever/chills. HPI and ROS limited secondary to patients dementia. Home Medications Home Medications Medication Instructions Recorded Confirmed Type donepezil [Aricept] 10 mg PO HS 06/20/18 06/16/19 History loperamide 2 mg PO Q4H PRN 06/20/18 06/16/19 History nystatin 1 applic TOPICAL TID PRN 06/20/18 06/16/19 History acetaminophen 500 mg capsule 500 mg PO Q4H PRN MDD 3 GRAMS/24 01/03/19 06/16/19 History HOURS docusate sodium 100 mg capsule 100 mg PO BID PRN 01/22/19 06/16/19 History albuterol sulfate 2.5 mg INHALATION QID PRN 01/28/19 06/16/19 History amiodarone 200 mg PO QAM 01/28/19 06/16/19 History bisacodyl 10 mg UT DAILY PRN 01/28/19 06/16/19 History memantine [Namenda] 5 mg PO QAM 01/28/19 06/16/19 History sennosides [senna] 8.6 mg PO DAILY PRN 01/28/19 06/16/19 History furosemide 80 mg tablet 80 mg PO BID tab 01/30/19 06/16/19 History fluticasone furoate 200 1 inh INHALATION DAILY #60 ea 02/05/19 06/16/19 Rx mcg-vilanterol 25 mcg/dose inhalation powder digoxin 125 mcg (0.125 mg) tablet 0.125 mcg PO QAM #30 tab 02/10/19 06/16/19 Rx metoprolol succinate 200 mg 200 mg PO QAM #30 tab 02/11/19 06/16/19 Rx tablet,extended release 24 hr potassium chloride 20 mEq 40 meq PO TID #180 tab 02/11/19 06/16/19 Rx tablet,extended release(part/cryst) sertraline 100 mg tablet 100 mg PO QAM #30 tab 03/17/19 06/16/19 Rx budesonide 2 ml INHALATION BID 04/22/19 06/16/19 History calcium carbonate-vitamin D3 1 tab PO QAM 04/22/19 06/16/19 History [Oyster Shell Calcium-Vit D3] metolazone 2.5 mg tablet 2.5 mg PO 3XWK #12 tab 05/01/19 06/16/19 Rx miscellaneous medical supply #1 ea 05/13/19 05/29/19 Rx Eliquis 5 mg PO Q12H 06/16/19 06/16/19 History acetaminophen 650 mg UT Q4H PRN MDD 3 /06/16/19 06/16/19 History HOURS atropine 2 drp SUBLINGUAL Q1H PRN 06/16/19 06/16/19 History diphenhydramine HCl [Banophen] 25 mg PO Q6H PRN 06/16/19 06/16/19 History ipratropium-albuterol 3 ml INHALATION Q6H PRN 06/16/19 06/16/19 History levothyroxine 125 mcg PO QAM 06/16/19 06/16/19 History morphine 10 mg SUBLINGUAL Q2H PRN 06/16/19 06/16/19 History omeprazole 20 mg PO QAM 06/16/19 06/16/19 History ondansetron 4 mg PO Q4H PRN 06/16/19 06/16/19 History spironolactone 25 mg PO QAM 06/16/19 06/16/19 History Allergies Allergy/AdvReac Type Severity Reaction Status Date / Time No Known Allergies Allergy Verified 06/16/19 17:03 Past Med/Surg History Medical History AF (paroxysmal atrial fibrillation) (Chronic) Alzheimers disease (Chronic) Apnea, sleep (Chronic) Asthma (Chronic) Atrial fibrillation with rapid ventricular response (Resolved) Cardiac pacemaker (Chronic) Dementia Depression (Chronic) Diastolic congestive heart failure (Chronic) Diastolic dysfunction (Chronic) DVT prophylaxis (Resolved) Enterococcal bacteremia (Resolved) Glaucoma High cholesterol Hypertension (Chronic) Hypokalemia (Resolved) Hypokalemia (Chronic) Hypothyroidism 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) Obesity Situational anxiety (Chronic) Urinary incontinence (Chronic) Surgical History History of arthroscopic knee surgery History of eye surgery History of permanent cardiac pacemaker placement History of umbilical hernia repair Family History Denies family history of Ovarian cancer Prostate cancer Myocardial infarction Breast cancer Colorectal cancer Social History Preferred Language: Hungarian Communication Ability: Effective Dynamiter Required: No Beliefs That Will Affect Care: None marital status: / Current Living Situation: Custodial Current Living Situation Comment[place] [facility] [place] Other Information That Helps Us Care for You: No Feels Safe at Home: Yes Safety Concerns: Feels Safe At This Time Smoking Status: Never smoker Hx Alcohol Use: No Hx Substance Use: No Review of Systems HPI and ROS limited secondary to patients dementia. Physical Exam Vital Signs Vital Signs - 24 hr 06/16/19 13:52 06/16/19 13:54 06/16/19 14:01 Temperature 37.0 C Temperature Source Oral Pulse Rate 62 66 61 Pulse Rate [Finger] Pulse Rate from SpO2 Sensor 62 61 Respiratory Rate 20 26 H 21 Respiratory Effort / Characteristics Spontaneous Blood Pressure 131/65 131/65 Blood Pressure Mean 102 87 Blood Pressure Position Lying Pulse Oximetry 94 98 96 Oxygen Delivery Method Nasal Cannula Oxygen Flow Rate 3 Sepsis Recent Fever Within 48 Hours Yes Sepsis New/Unexplained Change in Mental Status No Sepsis Action Taken by Nursing Physician Notified 06/16/19 14:15 06/16/19 14:25 06/16/19 14:30 Temperature Temperature Source Pulse Rate 60 60 Pulse Rate [Finger] Pulse Rate from SpO2 Sensor 60 60 Respiratory Rate 26 H 19 Respiratory Effort / Characteristics Blood Pressure Blood Pressure Mean Blood Pressure Position Pulse Oximetry 94 94 Oxygen Delivery Method Nasal Cannula Oxygen Flow Rate 3 Sepsis Recent Fever Within 48 Hours Sepsis New/Unexplained Change in Mental Status Sepsis Action Taken by Nursing 06/16/19 14:40 06/16/19 14:45 06/16/19 15:00 Temperature Temperature Source Pulse Rate 60 59 L Pulse Rate [Finger] 60 Pulse Rate from SpO2 Sensor 61 Respiratory Rate 18 21 22 Respiratory Effort / Characteristics Spontaneous Short of Breath Blood Pressure Blood Pressure Mean Blood Pressure Position Pulse Oximetry 94 98 Oxygen Delivery Method Nasal Cannula Oxygen Flow Rate 3 Sepsis Recent Fever Within 48 Hours Sepsis New/Unexplained Change in Mental Status Sepsis Action Taken by Nursing 06/16/19 15:15 06/16/19 15:30 06/16/19 15:45 Temperature Temperature Source Pulse Rate 60 60 60 Pulse Rate [Finger] Pulse Rate from SpO2 Sensor 60 60 60 Respiratory Rate 26 H 18 22 Respiratory Effort / Characteristics Blood Pressure Blood Pressure Mean Blood Pressure Position Pulse Oximetry 90 89 L 93 Oxygen Delivery Method Oxygen Flow Rate Sepsis Recent Fever Within 48 Hours Sepsis New/Unexplained Change in Mental Status Sepsis Action Taken by Nursing 06/16/19 16:00 06/16/19 16:15 06/16/19 16:30 Temperature Temperature Source Pulse Rate 60 70 61 Pulse Rate [Finger] Pulse Rate from SpO2 Sensor 60 60 61 Respiratory Rate 18 21 20 Respiratory Effort / Characteristics Blood Pressure Blood Pressure Mean Blood Pressure Position Pulse Oximetry 94 91 96 Oxygen Delivery Method Oxygen Flow Rate Sepsis Recent Fever Within 48 Hours Sepsis New/Unexplained Change in Mental Status Sepsis Action Taken by Nursing 06/16/19 16:45 06/16/19 17:41 Temperature Temperature Source Pulse Rate 61 67 Pulse Rate [Finger] Pulse Rate from SpO2 Sensor 61 67 Respiratory Rate 21 25 H Respiratory Effort / Characteristics Blood Pressure 108/42 L Blood Pressure Mean 58 Blood Pressure Position Pulse Oximetry 95 94 Oxygen Delivery Method Oxygen Flow Rate Sepsis Recent Fever Within 48 Hours Sepsis New/Unexplained Change in Mental Status Sepsis Action Taken by Nursing GENERAL: Awake, confused, chronically ill-appearing, in no distress. HENT: Normocephalic, atraumatic. Oropharynx unremarkable. EYES: Normal conjunctiva. Sclera non-icteric. NECK: Supple. No nuchal rigidity. FROM. Mild JVD. RESPIRATORY: Diminished breath sounds throughout with intermittent wheezes. CARDIAC: Regular rate, normal rhythm. Extremities warm and well perfused. Pulses equal. ABDOMEN: Soft, non-distended. No tenderness to palpation. No rebound or guarding . No masses. RECTAL: Deferred. MUSCULOSKELETAL: Chest examination reveals no tenderness. The back is symmetrical on inspection without obvious abnormality. There is no CVA tenderness to palpation. No joint edema. LOWER EXTREMITIES: Calves are equal size bilaterally and non-tender. 1+ bilateral edema. No discoloration. NEURO: Normal sensorium. No sensory or motor deficits noted. SKIN: No rash or jaundice noted. Course Course 1422: Past medical records reviewed. The patient was evaluated in room B05. A complete history and physical exam was performed. 1640: I spoke with [facility] Hospitalist. She will evaluate for further management. Administered Medications Albuterol (Duoneb) 3 ml NEB Q4R RIYA Stop: 07/16/19 22:59 Last Admin: 06/16/19 22:14 Dose: 3 ml Documented by: [id number] Apixaban (Eliquis) 2.5 mg PO Q12 RIYA; Protocol Stop: 07/16/19 20:59 Last Admin: 06/16/19 21:41 Dose: 2.5 mg Documented by: [id number] Budesonide (Pulmicort Respules) 0.5 mg INH BIDR RIYA Stop: 07/16/19 20:14 Last Admin: 06/16/19 20:57 Dose: 0.5 mg Documented by: [id number] Donepezil HCl (Aricept) 10 mg PO HS RIYA Stop: 07/16/19 20:59 Last Admin: 06/16/19 20:47 Dose: 10 mg Documented by: [id number] Metronidazole (Flagyl) 500 mg in 100 mls @ 100 mls/hr IV Q8H RIYA Stop: 06/23/19 21:59 Last Infusion: 06/16/19 23:10 Dose: 0 mls/hr Documented by: [id number] Admin: 06/16/19 21:41 Dose: 100 mls/hr Documented by: [id number] Methylprednisolone 40 mg/ (Syringe) 0.64 mls @ 1.5 mls/min IV BID RIYA Stop: 06/18/19 09:01 Last Admin: 06/16/19 20:48 Dose: 1.5 mls/min Documented by: [id number] Potassium Chloride (Klor-Con M20) 40 meq PO TID RIYA Stop: 07/16/19 20:59 Last Admin: 06/16/19 20:48 Dose: 40 meq Documented by: [id number] Discontinued Medications Albuterol (Duoneb) 3 ml NEB NOW STA Stop: 06/16/19 14:27 Last Admin: 06/16/19 14:38 Dose: 3 ml Documented by: [id number] Dexamethasone Sodium Phosphate (Decadron Pf) Confirm Administered Dose 10 mg .ROUTE .STK-MED ONE Stop: 06/16/19 15:22 Last Admin: 06/16/19 15:45 Dose: 10 mg Documented by: [id number] Furosemide (Lasix) 80 mg IV NOW STA Stop: 06/16/19 16:35 Last Admin: 06/16/19 18:03 Dose: 80 mg Documented by: [id number] Dexamethasone Sodium Phosphate (10 mg/ Syringe) 2.5 mls @ 1 mls/min IV NOW STA Stop: 06/16/19 14:28 Last Admin: 06/16/19 16:04 Dose: Not Given Documented by: [id number] Ceftriaxone Sodium (Rocephin) 2,000 mg in 70 mls @ 140 mls/hr IV NOW STA Stop: 06/16/19 17:03 Last Infusion: 06/16/19 18:46 Dose: 0 mls/hr Documented by: [id number] Admin: 06/16/19 18:03 Dose: 140 mls/hr Documented by: [id number] Doxycycline Hyclate 100 mg/ (Dextrose) 110 mls @ 50 mls/hr IV NOW STA Stop: 06/16/19 18:45 Last Infusion: 06/16/19 21:25 Dose: 0 mls/hr Documented by: [id number] Admin: 06/16/19 18:36 Dose: 50 mls/hr Documented by: [id number] Medical Decision Making Differential Diagnosis Differential includes viral illness, influenza, streptococcal pharyngitis, meningitis, pneumonia, sinusitis, UTI, pyelonephritis, otitis media. Medical Records Attestation: I reviewed the patient's medical records. Home Medications Current Medication List: was personally reviewed by me Laboratory Data Attestation: I reviewed the patient's lab results. Result diagrams: 06/16/19 15:20 06/16/19 15:20 Lab Results 06/16/19 06/16/19 06/16/19 Range/Units 15:20 15:20 15:20 WBC 8.29 (4.8-10.8) K/uL RBC 4.11 L (4.2-5.4) M/uL Hgb 13.4 (12.0-16.0) g/dL Hct 41.7 (37-47) % MCV 101.5 H (80-100) fL MCH 32.6 (25-34) pg MCHC 32.1 (32-36) g/dL RDW Std Deviation 63.6 H (36.4-46.3) fL RDW Coeff of Kerry 17.1 H (11.5-14.5) % Plt Count 202 (130-400) K/uL MPV 11.0 H (7.4-10.4) fL Immature Gran % (Auto) 1.7 % Neut % (Auto) 68.4 % Lymph % (Auto) 20.0 % Burke % (Auto) 8.8 % Eos % (Auto) 0.5 % Baso % (Auto) 0.6 % Immature Gran # (Auto) 0.14 H (0.00-0.02) K/uL Neut # (Auto) 5.67 (1.4-6.5) K/uL Lymph # (Auto) 1.66 (1.2-3.4) K/uL Burke # (Auto) 0.73 H (0.11-0.59) K/uL Eos # (Auto) 0.04 (0-0.5) K/uL Baso # (Auto) 0.05 (0-0.2) K/uL Platelet Estimate Normal (Normal) Anisocytosis Present PT 12.3 H (9.0-12.0) Seconds INR 1.2 H (0.9-1.1) APTT 29.6 (21.0-31.0) Seconds PTT Ratio 1.1 ABG pH (7.35-7.45) ABG pCO2 (35-46) mmHg ABG pO2 (80-95) mmHg ABG HCO3 (19-24) mmol/L ABG O2 Saturation (90-95) % ABG Base Excess (-9-1.8) mEq/L Tacho Test (Pos) Barometric Pressure mm/Hg Oxygen Given Sodium 142 (136-145) mmol/L Potassium 4.1 (3.5-5.1) mmol/L Chloride 106 (98-107) mmol/L Carbon Dioxide 29 (21-32) mmol/L Anion Gap 7.0 (3-11) BUN 20 H (7-18) mg/dl Creatinine 1.61 H (0.6-1.2) mg/dl Est Cr Clr Drug Dosing Not Reportable Est GFR ( Amer) 33.0 Est GFR (Non-Af Amer) 28.5 BUN/Creatinine Ratio 12.4 (10-20) Glucose 122 H (70-99) mg/dl Lactate (0.4-2.0) mmol/L Calcium 9.1 (8.5-10.1) mg/dl Phosphorus 3.0 (2.5-4.9) mg/dl Magnesium 2.0 (1.8-2.4) mg/dl Total Bilirubin 0.5 (0.2-1) mg/dl AST 34 (15-37) U/L ALT 26 (12-78) U/L Alkaline Phosphatase 59 (45-117) U/L Troponin I 0.049 H* (0-0.045) ng/ml NT-Pro-B Natriuret Pep 1741 (0-1800) pg/ml Total Protein 6.7 (6.4-8.2) gm/dl Albumin 2.8 L (3.4-5.0) gm/dl Globulin 3.9 (2.5-4.0) gm/dl Albumin/Globulin Ratio 0.7 L (0.9-2) Procalcitonin (0-0.5) ng/ml Urine Color Urine Appearance (Clear) Urine pH (4.5-7.5) Ur Specific Adams (1.000-1.030) Urine Protein (Negative) Urine Glucose (UA) (Negative) Urine Ketones (Negative) Urine Blood (Negative) Urine Nitrite (Negative) Urine Bilirubin (Negative) Urine Urobilinogen (Negative) Ur Leukocyte Esterase (Negative) Urine WBC (Auto) (0-5) /hpf Urine RBC (Auto) (0-4) /hpf U Hyaline Cast (Auto) (0-5) /lpf U Epithel Cells (Auto) (0-5) /lpf Urine Bacteria (Auto) (Negative) Influenza Type A (PCR) (Neg) Influenza Type B (PCR) (Neg) 06/16/19 06/16/19 06/16/19 Range/Units 15:20 15:20 15:23 WBC (4.8-10.8) K/uL RBC (4.2-5.4) M/uL Hgb (12.0-16.0) g/dL Hct (37-47) % MCV (80-100) fL MCH (25-34) pg MCHC (32-36) g/dL RDW Std Deviation (36.4-46.3) fL RDW Coeff of Kerry (11.5-14.5) % Plt Count (130-400) K/uL MPV (7.4-10.4) fL Immature Gran % (Auto) % Neut % (Auto) % Lymph % (Auto) % Burke % (Auto) % Eos % (Auto) % Baso % (Auto) % Immature Gran # (Auto) (0.00-0.02) K/uL Neut # (Auto) (1.4-6.5) K/uL Lymph # (Auto) (1.2-3.4) K/uL Burke # (Auto) (0.11-0.59) K/uL Eos # (Auto) (0-0.5) K/uL Baso # (Auto) (0-0.2) K/uL Platelet Estimate (Normal) Anisocytosis PT (9.0-12.0) Seconds INR (0.9-1.1) APTT (21.0-31.0) Seconds PTT Ratio ABG pH 7.49 H (7.35-7.45) ABG pCO2 44 (35-46) mmHg ABG pO2 50 L (80-95) mmHg ABG HCO3 32 H (19-24) mmol/L ABG O2 Saturation 87.1 L (90-95) % ABG Base Excess 8.0 H (-9-1.8) mEq/L Tacho Test Pos (Pos) Barometric Pressure 725.1 mm/Hg Oxygen Given 3 L Sodium (136-145) mmol/L Potassium (3.5-5.1) mmol/L Chloride (98-107) mmol/L Carbon Dioxide (21-32) mmol/L Anion Gap (3-11) BUN (7-18) mg/dl Creatinine (0.6-1.2) mg/dl Est Cr Clr Drug Dosing Est GFR ( Amer) Est GFR (Non-Af Amer) BUN/Creatinine Ratio (10-20) Glucose (70-99) mg/dl Lactate 2.0 (0.4-2.0) mmol/L Calcium (8.5-10.1) mg/dl Phosphorus (2.5-4.9) mg/dl Magnesium (1.8-2.4) mg/dl Total Bilirubin (0.2-1) mg/dl AST (15-37) U/L ALT (12-78) U/L Alkaline Phosphatase (45-117) U/L Troponin I (0-0.045) ng/ml NT-Pro-B Natriuret Pep (0-1800) pg/ml Total Protein (6.4-8.2) gm/dl Albumin (3.4-5.0) gm/dl Globulin (2.5-4.0) gm/dl Albumin/Globulin Ratio (0.9-2) Procalcitonin 0.12 (0-0.5) ng/ml Urine Color Urine Appearance (Clear) Urine pH (4.5-7.5) Ur Specific Adams (1.000-1.030) Urine Protein (Negative) Urine Glucose (UA) (Negative) Urine Ketones (Negative) Urine Blood (Negative) Urine Nitrite (Negative) Urine Bilirubin (Negative) Urine Urobilinogen (Negative) Ur Leukocyte Esterase (Negative) Urine WBC (Auto) (0-5) /hpf Urine RBC (Auto) (0-4) /hpf U Hyaline Cast (Auto) (0-5) /lpf U Epithel Cells (Auto) (0-5) /lpf Urine Bacteria (Auto) (Negative) Influenza Type A (PCR) (Neg) Influenza Type B (PCR) (Neg) 06/16/19 06/16/19 Range/Units 15:45 17:40 WBC (4.8-10.8) K/uL RBC (4.2-5.4) M/uL Hgb (12.0-16.0) g/dL Hct (37-47) % MCV (80-100) fL MCH (25-34) pg MCHC (32-36) g/dL RDW Std Deviation (36.4-46.3) fL RDW Coeff of Kerry (11.5-14.5) % Plt Count (130-400) K/uL MPV (7.4-10.4) fL Immature Gran % (Auto) % Neut % (Auto) % Lymph % (Auto) % Burke % (Auto) % Eos % (Auto) % Baso % (Auto) % Immature Gran # (Auto) (0.00-0.02) K/uL Neut # (Auto) (1.4-6.5) K/uL Lymph # (Auto) (1.2-3.4) K/uL Burke # (Auto) (0.11-0.59) K/uL Eos # (Auto) (0-0.5) K/uL Baso # (Auto) (0-0.2) K/uL Platelet Estimate (Normal) Anisocytosis PT (9.0-12.0) Seconds INR (0.9-1.1) APTT (21.0-31.0) Seconds PTT Ratio ABG pH (7.35-7.45) ABG pCO2 (35-46) mmHg ABG pO2 (80-95) mmHg ABG HCO3 (19-24) mmol/L ABG O2 Saturation (90-95) % ABG Base Excess (-9-1.8) mEq/L Tacho Test (Pos) Barometric Pressure mm/Hg Oxygen Given Sodium (136-145) mmol/L Potassium (3.5-5.1) mmol/L Chloride (98-107) mmol/L Carbon Dioxide (21-32) mmol/L Anion Gap (3-11) BUN (7-18) mg/dl Creatinine (0.6-1.2) mg/dl Est Cr Clr Drug Dosing Est GFR ( Amer) Est GFR (Non-Af Amer) BUN/Creatinine Ratio (10-20) Glucose (70-99) mg/dl Lactate (0.4-2.0) mmol/L Calcium (8.5-10.1) mg/dl Phosphorus (2.5-4.9) mg/dl Magnesium (1.8-2.4) mg/dl Total Bilirubin (0.2-1) mg/dl AST (15-37) U/L ALT (12-78) U/L Alkaline Phosphatase (45-117) U/L Troponin I (0-0.045) ng/ml NT-Pro-B Natriuret Pep (0-1800) pg/ml Total Protein (6.4-8.2) gm/dl Albumin (3.4-5.0) gm/dl Globulin (2.5-4.0) gm/dl Albumin/Globulin Ratio (0.9-2) Procalcitonin (0-0.5) ng/ml Urine Color Yellow Urine Appearance Clear (Clear) Urine pH 6.5 (4.5-7.5) Ur Specific Adams 1.012 (1.000-1.030) Urine Protein Negative (Negative) Urine Glucose (UA) Negative (Negative) Urine Ketones Negative (Negative) Urine Blood Trace H (Negative) Urine Nitrite Negative (Negative) Urine Bilirubin Negative (Negative) Urine Urobilinogen Negative (Negative) Ur Leukocyte Esterase 2+ H (Negative) Urine WBC (Auto) >30 H (0-5) /hpf Urine RBC (Auto) 5-10 H (0-4) /hpf U Hyaline Cast (Auto) 5-10 H (0-5) /lpf U Epithel Cells (Auto) 0-5 (0-5) /lpf Urine Bacteria (Auto) 1+ H (Negative) Influenza Type A (PCR) Neg for Influ A (Neg) Influenza Type B (PCR) Neg for Influ B (Neg) Imaging Data Radiologist's Impression: Radiology results as stated below per my review and the radiologist's interpretation: XR chest 1V portable HISTORY: SEPSIS COMPARISON: Chest 04/22/2019. FINDINGS: No pneumothorax. No pleural effusions. There are low lung findings. Left-sided dual-chamber pacemaker. The heart remains enlarged. Mild interstitial thickening has improved. This suggests resolving congestive change. Old, healed left humeral fracture. IMPRESSION: Stable cardiomegaly with resolving mild congestive change. ACT 112: Negative or not required by law. Electronically signed by: Jordon Espinal M.D. 06/16/2019 3:11 PM ECG Data Attestation: I personally reviewed and interpreted this ECG as follows: Indication: + altered mental status Rate (beats per minute): 60 Rhythm: + other (atrial paced ) ECG ST segments: + Nonspecific ST abnormalities; no ST depression and no ST elevation ECG Findings: + Other (T-wave abnormalities, QRS 94, QTC 378) Comparison ECG Date: from (04/23/19) Change: no significant change Blood Pressure Blood Pressure Findings: Elevated blood pressure Blood Pressure Disposition: further management by hospitalist DEBBI Narrative The patient is a pleasant 89-year-old woman with a complicated past medical history of hypertension, severe Alzheimer dementia, obstructive sleep apnea, paroxysmal A atrial fibrillation on Eliquis, depression, congestive heart failure diastolic type, morbid obesity, hypothyroidism, history of aspiration who presents emergency department from her [facility] facility for fever and worsening cough and congestion per HPI. On arrival the patient is confused at her baseline. Diminished throughout with intermittent wheezes. She has 1+ bilateral lower extremity edema. EKG is paced without overt acute ischemia. Chest x-ray with interpretation of improved CHF from prior. Troponin slightly elevated at 0.04 without prior elevations. Patient was treated empirically with ceftriaxone and doxycycline given her respiratory symptoms in the setting of reported fever at SNF. UA subsequently was also positive. WBC, H/H and platelets within normal limits. ABG without CO2 retention. Chemistry without acidosis. Lactate 2.0. Creatinine 1.6 within patient's prior range of values. Electrolytes and LFTs otherwise unremarkable. Influenza negative. Given the patient's comorbidities in the setting of her fever reasonable to proceed with admission at this time given unlikely to be able to be managed at her [facility] facility. Case was discussed with Dr. Lilly, [facility] [place], who will evaluate the patient for admission. Impression & Plan Bronchitis, CHF (congestive heart failure), UTI (urinary tract infection), Janis vated troponin Discharge Plan Visit Data *Final* Discharge Date/Time: 06/16/19 19:04 Chief Complaint: Illness ED Provider: Miller Lou Discharge Problem: Bronchitis, CHF (congestive heart failure), UTI (urinary tract infection), Elevated troponin Patient Disposition: Admitted As Inpatient Discharge Instructions Interventions: ED Discharge Assessment Last Done: 06/16/19 19:04 Discharge Problem: CHF (congestive heart failure) Qualifiers: Heart failure type: unspecified Heart failure chronicity: unspecified Qualified Code(s): I50.9 - Heart failure, unspecified UTI (urinary tract infection) Qualifiers: Urinary tract infection type: site unspecified Hematuria presence: without hematuria Qualified Code(s): N39.0 - Urinary tract infection, site not specified The scribe's documentation has been prepared under my direction and personally reviewed by me in its entirety. I confirm that the note above accurately reflects all work, treatment, procedures, and medical decision making performed by me.
[2019-06-16] MEDS: metroNIDAZOLE 500 MG/100 ML BAG IV SCH (21:41)
[2019-06-16] MEDS: APIXABAN 2.5 MG TAB PO SCH (21:41)
[2019-06-16] MEDS: ALBUT/IPRATROP 3MG/0.5MG NEB 3 ML VIAL NEB SCH (22:14)
[2019-06-17] MEDS: NITROGLYCERIN 2% OINTMENT 30GM TUBE EXT SCH ×4 (02:19→18:21)
[2019-06-17] MEDS: ALBUT/IPRATROP 3MG/0.5MG NEB 3 ML VIAL NEB SCH ×6 (03:01→23:36)
[2019-06-17] MEDS: metroNIDAZOLE 500 MG/100 ML BAG IV SCH (05:13)
[2019-06-17] MEDS: DOXYCYCLINE HYCLATE 100 MG in DEXTROSE 5% 100 ML IV SCH ×2 (05:13→17:03)
[2019-06-17] MEDS: LEVOTHYROXINE SODIUM 125 MCG TABLET PO SCH (05:14)
[2019-06-17 06:31] LABS: Estimated Average Glucose 146 mg/dl; Hemoglobin A1C 6.7 % (4.5-5.6)
[2019-06-17] MEDS: BUDESONIDE 0.5 MG/2 ML VIAL (PULMICORT) INH SCH ×2 (06:53→19:54)
[2019-06-17 08:03] LABS: Basophils # (auto) 0.02 K/uL (0-0.2); Basophils % (auto) 0.2 %; Hematocrit (blood only) 42.2 % (37-47); Hemoglobin 13.5 g/dL (12.0-16.0); Immature Granulocytes # (auto) 0.08 K/uL (0.00-0.02); Immature Granulocytes % (auto) 0.9 %; Lymphocytes # (auto) 1.66 K/uL (1.2-3.4); Lymphocytes % (auto) 17.8 %; Mean Corpuscular Hemoglobin 31.8 pg (25-34); Mean Corpuscular Volume 99.5 fL (80-100); Mean Platelet Volume 10.8 fL (7.4-10.4); Monocytes # (auto) 0.54 K/uL (0.11-0.59); Monocytes % (auto) 5.8 %; Neutrophils % (auto) 75.3 %; Platelet Count 179 K/uL (130-400); RDW Coefficient of Variation 16.9 % (11.5-14.5); RDW Standard Deviation 61.6 fL (36.4-46.3); Red Blood Count 4.24 M/uL (4.2-5.4)
[2019-06-17] MEDS: PANTOprazole 40 MG TAB PO SCH (08:34)
[2019-06-17] MEDS: SPIRONOLACTONE 25 MG TAB PO SCH (08:34)
[2019-06-17] MEDS: CALCIUM 600MG + VIT D 400 IU TAB PO SCH (08:34)
[2019-06-17] MEDS: MEMANTINE HCL 5 MG TAB PO SCH (08:34)
[2019-06-17] MEDS: AMIODARONE 200 MG TAB PO SCH (08:34)
[2019-06-17] MEDS: APIXABAN 2.5 MG TAB PO SCH ×2 (08:34→21:56)
[2019-06-17] MEDS: METOPROLOL SUCC 50MG EXT REL TAB PO SCH (08:34)
[2019-06-17] MEDS: SERTRALINE HCL 100 MG TABLET PO SCH (08:35)
[2019-06-17] MEDS: POTASSIUM CHLORIDE 20 MEQ TABCR PO SCH ×3 (08:35→21:56)
[2019-06-17 08:39] LABS: Albumin Level 2.7 gm/dl (3.4-5.0); BUN Creatinine Ratio 15.5 (10-20); Calcium 8.5 mg/dl (8.5-10.1); Creatinine Clr Calc Pharmacy 31.9 ml/min; Est GFR (African American) 33.5; Est GFR (Non-African American) 28.9; Potassium 3.7 mmol/L (3.5-5.1)
[2019-06-17 08:42] LABS: Albumin Globulin Ratio 0.7 (0.9-2); Bilirubin,Total 0.5 mg/dl (0.2-1); Globulin 4.1 gm/dl (2.5-4.0); Total Protein 6.8 gm/dl (6.4-8.2)
[2019-06-17] MEDS ORDERED: FUROSEMIDE 40 MG in SYRINGE 0 ML IV SCH (09:00)
--- NOTE | 2019-06-17 10:29 | Electrocardiogram Report ---
Test Reason : Blood Pressure : / mmHG Vent. Rate : 060 BPM Atrial Rate : 060 BPM P-R Int : 242 ms QRS Dur : 094 ms QT Int : 378 ms P-R-T Axes : 180 065 -88 degrees QTc Int : 378 ms Atrial-paced rhythm with prolonged AV conduction Abnormal ECG When compared with ECG of 23-APR-2019 07:51, Electronic atrial pacemaker has replaced Sinus rhythm QT has shortened Confirmed by Nabor Jaramillo ([id number]) on 06/17/2019 10:28:51 AM [facility] [place] Confirmed By:Nabor Jaramillo
--- NOTE | 2019-06-17 11:13 | Hospitalist Progress Note ---
Date of Service June 17, 2019 Assessment & Plan (1) UTI (urinary tract infection): 89 yo F with PMH CKD Stage 3, chronic hypoxic respiratory failure, diastolic heart failure, Afib s/p pacemaker placement, obesity who is on hospice care at [facility] and brought in to ED by her daughter for concern of a fever and worsening cough that she wanted investigated. Patient's dementia is quite debilitating and clarification of symptoms from her is difficult. 1. UTI - UA showed 2+ LE, >30 WBC, 1+ bacteria - newell output: 470 mL - coverage with Ceftriaxone IV given hx UTI susceptible to cephalosporins Urine culture pending Unlikely to be urosepsis given lack of white blood cell count, lack of hypotension, negative pro-True, normal lactate, afebrile status. Blood cultures pending 2. Elevated troponin -Patient had a mildly elevated troponin on admission at 0.043 which subsequently decreased and then bumped up to 0.056 Patient does not exhibit any chest pain on exam, has not had any abnormal heart rhythms, has not been tachycardic or hypertensive, has had a normal EKG. We will continue to trend, likely secondary to CKD stage III and stress 3. Stage II diastolic heart failure -proBNP of 1729 on admission Patient does not appear to be fluid overloaded on exam. No peripheral edema noted no crackles on exam. No JVD noted. Patient received 40 mg of IV Lasix in the emergency department. At this time switch back to p.o. 80 mg of Lasix twice a day as per home regimen. 4. Hospice status Have requested POLST form from hospice care center to be faxed Patient labeled as DNR/DNI for now 5. Hypothyroidism TSH on admission 6.7 - Patient takes 125 mcg of levothyroxine every morning. Vision and TSH may be acute secondary to stress or infection outpatient regimen may need to be adjusted after discharge. 6. Chronic hypoxic respiratory failure - Saturating well on 3 L of nasal cannula in room as per home regimen -Received IV steroids in the emergency department however this seems unlikely to be a COPD exacerbation. -Patient would benefit from continued DuoNeb use in the hospital. - given metronidazole in ED as well as doxycycline for aspiration coverage - will continue to monitor O2 needs and clinical image of PNA/pneumonitis 7. Alzheimer's -Continued home medications of memantine and donepezil 8. Atrial fibrillation status post pacemaker placement -Anticoagulation with Eliquis 2.5 mg twice a day -Control maintained with digoxin 125 mcg a day, Toprol 200 once a day 9. GERD - omeprazole 20 qAM DVT ppx: on Eliquis 2.5mg GI: heart healthy Code Status: DNR/DNI (2) CKD (chronic kidney disease), stage III: (3) Diabetes: (4) AMBER (acute kidney injury): (5) Diastolic congestive heart failure: (6) Cardiac pacemaker: (7) AF (paroxysmal atrial fibrillation): (8) Apnea, sleep: (9) Chronic respiratory failure with hypoxia: (10) Alzheimers disease: (11) Hypertension: Admission and Anticipated Discharge Date Admission Date: June 16, 2019 Supervising Physician Co-Signing Physician Notes I saw the patient with the resident physician and confirmed orozco portions the history and physical examination. Agree with the impression and plan as noted above. Patient is a poor historian as she has avanced dementia. At this time, no complaints. It appears she was brought in to the hosptial for fevers. She was on outpatient hospice, though she gets treated for infections with antibiotics if needed. POLST form was not available at the time of this encounter. Vitals are stable Awake, oriented x1. Heart regular; lungs are decreased bilaterally Fever possible Aspiration pneumonia and UTI. X-ray does not point to any consolidation that may be causing an aspiration pneumonia. Difficult to assess if patient truly has a UTI, as no further fevers in the hospital stay. Her labs do not appear to be in sepsis. WBC did slightly worsen but she did receive IV steroids on admission. Difficult to assess for symptoms as she has dementia and cannot evaluate for dysuria, incontinence, worsening frequency. At this time will continue antibiotics. May consider evaluating patient with palliative care to discuss goals of care. D/W Palliative care team, will have case fitter determine hospice agency and go from there. Subjective Patient is a 89-year-old female suffering from dementia who is on hospice care [facility], who was brought in by her daughter for concerns of a worsening cough and fever of 100.3 measured at the care center. Review of systems and HPI was severely limited by patient's inability to follow along with conversation. She is aware of being in a hospital in [place] however is not able to finish a full thought or effectively answer questions. Review of Systems Review of Systems: Unobtainable due to cognitive status Physical Exam Constitutional: well developed, well nourished and + altered mental status; no acute distress Respiratory: normal respiratory effort and + cough; no respiratory distress and no labored breathing Auscultation: + rhonchi and + wheezes; no crackles Cardiovascular: RRR, no murmur, no edema Gastrointestinal (Abdomen): Inspection/Auscultation: abdomen normal to inspection and normal bowel sounds; abdomen not distended Percussion/Palpation: abdomen nontender Results & Data ([facility]) Vital Signs (Past 12 Hours) Vital Signs Temp Pulse Pulse Pulse Resp BP Pulse Ox 06/17/19 09:45 62 06/17/19 07:26 36.5 C 60 14 157/74 H 94 06/17/19 06:53 60 18 93 06/17/19 03:03 62 24 91 06/17/19 03:02 62 24 91 06/17/19 00:01 37.2 C 60 24 112/56 L 87 L 06/17/19 06/17/19 06/17/19 Range/Units 07:53 07:53 07:53 WBC 9.30 (4.8-10.8) K/uL RBC 4.24 (4.2-5.4) M/uL Hgb 13.5 (12.0-16.0) g/dL Hct 42.2 (37-47) % MCV 99.5 (80-100) fL MCH 31.8 (25-34) pg MCHC 32.0 (32-36) g/dL RDW Std Deviation 61.6 H (36.4-46.3) fL RDW Coeff of Kerry 16.9 H (11.5-14.5) % Plt Count 179 (130-400) K/uL MPV 10.8 H (7.4-10.4) fL Immature Gran % (Auto) 0.9 % Neut % (Auto) 75.3 % Lymph % (Auto) 17.8 % [place] % (Auto) 5.8 % Eos % (Auto) 0.0 % Baso % (Auto) 0.2 % Immature Gran # (Auto) 0.08 H (0.00-0.02) K/uL Neut # (Auto) 7.00 H (1.4-6.5) K/uL Lymph # (Auto) 1.66 (1.2-3.4) K/uL [place] # (Auto) 0.54 (0.11-0.59) K/uL Eos # (Auto) 0.00 (0-0.5) K/uL Baso # (Auto) 0.02 (0-0.2) K/uL Platelet Estimate (Normal) Anisocytosis PT (9.0-12.0) Seconds INR (0.9-1.1) APTT (21.0-31.0) Seconds PTT Ratio ABG pH (7.35-7.45) ABG pCO2 (35-46) mmHg ABG pO2 (80-95) mmHg ABG HCO3 (19-24) mmol/L ABG O2 Saturation (90-95) % ABG Base Excess (-9-1.8) mEq/L Tacho Test (Pos) Barometric Pressure mm/Hg Oxygen Given Sodium 144 (136-145) mmol/L Potassium 3.7 (3.5-5.1) mmol/L Chloride 106 (98-107) mmol/L Carbon Dioxide 31 (21-32) mmol/L Anion Gap 7.0 (3-11) BUN 25 H (7-18) mg/dl Creatinine 1.59 H (0.6-1.2) mg/dl Est Cr Clr Drug Dosing 31.9 Est GFR ( Amer) 33.5 Est GFR (Non-Af Amer) 28.9 BUN/Creatinine Ratio 15.5 (10-20) Glucose 172 H (70-99) mg/dl Estimat Average Glucose mg/dl Hemoglobin A1c (4.5-5.6) % Lactate (0.4-2.0) mmol/L Calcium 8.5 (8.5-10.1) mg/dl Phosphorus (2.5-4.9) mg/dl Magnesium (1.8-2.4) mg/dl Total Bilirubin 0.5 (0.2-1) mg/dl AST 93 H (15-37) U/L ALT 26 (12-78) U/L Alkaline Phosphatase 58 (45-117) U/L Troponin I 0.056 H* (0-0.045) ng/ml NT-Pro-B Natriuret Pep (0-1800) pg/ml Total Protein 6.8 (6.4-8.2) gm/dl Albumin 2.7 L (3.4-5.0) gm/dl Globulin 4.1 H (2.5-4.0) gm/dl Albumin/Globulin Ratio 0.7 L (0.9-2) Triglycerides 151 H (0-150) mg/dl Cholesterol 277 H (0-200) mg/dl LDL Cholesterol, Calc 211 mg/dl VLDL Cholesterol, Calc 30 mg/dl HDL Cholesterol 36 mg/dl Cholesterol/HDL Ratio 8 Procalcitonin (0-0.5) ng/ml TSH (0.300-4.500) uIu/ml Urine Color Urine Appearance (Clear) Urine pH (4.5-7.5) Ur Specific [place] (1.000-1.030) Urine Protein (Negative) Urine Glucose (UA) (Negative) Urine Ketones (Negative) Urine Blood (Negative) Urine Nitrite (Negative) Urine Bilirubin (Negative) Urine Urobilinogen (Negative) Ur Leukocyte Esterase (Negative) Urine WBC (Auto) (0-5) /hpf Urine RBC (Auto) (0-4) /hpf U Hyaline Cast (Auto) (0-5) /lpf U Epithel Cells (Auto) (0-5) /lpf Urine Bacteria (Auto) (Negative) Influenza Type A (PCR) (Neg) Influenza Type B (PCR) (Neg) 06/17/19 06/16/19 06/16/19 Range/Units 01:32 20:01 20:01 WBC (4.8-10.8) K/uL RBC (4.2-5.4) M/uL Hgb (12.0-16.0) g/dL Hct (37-47) % MCV (80-100) fL MCH (25-34) pg MCHC (32-36) g/dL RDW Std Deviation (36.4-46.3) fL RDW Coeff of Kerry (11.5-14.5) % Plt Count (130-400) K/uL MPV (7.4-10.4) fL Immature Gran % (Auto) % Neut % (Auto) % Lymph % (Auto) % [place] % (Auto) % Eos % (Auto) % Baso % (Auto) % Immature Gran # (Auto) (0.00-0.02) K/uL Neut # (Auto) (1.4-6.5) K/uL Lymph # (Auto) (1.2-3.4) K/uL [place] # (Auto) (0.11-0.59) K/uL Eos # (Auto) (0-0.5) K/uL Baso # (Auto) (0-0.2) K/uL Platelet Estimate (Normal) Anisocytosis PT (9.0-12.0) Seconds INR (0.9-1.1) APTT (21.0-31.0) Seconds PTT Ratio ABG pH (7.35-7.45) ABG pCO2 (35-46) mmHg ABG pO2 (80-95) mmHg ABG HCO3 (19-24) mmol/L ABG O2 Saturation (90-95) % ABG Base Excess (-9-1.8) mEq/L Tacho Test (Pos) Barometric Pressure mm/Hg Oxygen Given Sodium (136-145) mmol/L Potassium (3.5-5.1) mmol/L Chloride (98-107) mmol/L Carbon Dioxide (21-32) mmol/L Anion Gap (3-11) BUN (7-18) mg/dl Creatinine (0.6-1.2) mg/dl Est Cr Clr Drug Dosing Est GFR ( Amer) Est GFR (Non-Af Amer) BUN/Creatinine Ratio (10-20) Glucose (70-99) mg/dl Estimat Average Glucose mg/dl Hemoglobin A1c (4.5-5.6) % Lactate 1.7 (0.4-2.0) mmol/L Calcium (8.5-10.1) mg/dl Phosphorus (2.5-4.9) mg/dl Magnesium (1.8-2.4) mg/dl Total Bilirubin (0.2-1) mg/dl AST (15-37) U/L ALT (12-78) U/L Alkaline Phosphatase (45-117) U/L Troponin I 0.041 0.043 (0-0.045) ng/ml NT-Pro-B Natriuret Pep 1729 (0-1800) pg/ml Total Protein (6.4-8.2) gm/dl Albumin (3.4-5.0) gm/dl Globulin (2.5-4.0) gm/dl Albumin/Globulin Ratio (0.9-2) Triglycerides (0-150) mg/dl Cholesterol (0-200) mg/dl LDL Cholesterol, Calc mg/dl VLDL Cholesterol, Calc mg/dl HDL Cholesterol mg/dl Cholesterol/HDL Ratio Procalcitonin (0-0.5) ng/ml TSH 6.700 H (0.300-4.500) uIu/ml Urine Color Urine Appearance (Clear) Urine pH (4.5-7.5) Ur Specific [place] (1.000-1.030) Urine Protein (Negative) Urine Glucose (UA) (Negative) Urine Ketones (Negative) Urine Blood (Negative) Urine Nitrite (Negative) Urine Bilirubin (Negative) Urine Urobilinogen (Negative) Ur Leukocyte Esterase (Negative) Urine WBC (Auto) (0-5) /hpf Urine RBC (Auto) (0-4) /hpf U Hyaline Cast (Auto) (0-5) /lpf U Epithel Cells (Auto) (0-5) /lpf Urine Bacteria (Auto) (Negative) Influenza Type A (PCR) (Neg) Influenza Type B (PCR) (Neg) 06/16/19 06/16/19 06/16/19 Range/Units 17:40 15:45 15:23 WBC (4.8-10.8) K/uL RBC (4.2-5.4) M/uL Hgb (12.0-16.0) g/dL Hct (37-47) % MCV (80-100) fL MCH (25-34) pg MCHC (32-36) g/dL RDW Std Deviation (36.4-46.3) fL RDW Coeff of Kerry (11.5-14.5) % Plt Count (130-400) K/uL MPV (7.4-10.4) fL Immature Gran % (Auto) % Neut % (Auto) % Lymph % (Auto) % [place] % (Auto) % Eos % (Auto) % Baso % (Auto) % Immature Gran # (Auto) (0.00-0.02) K/uL Neut # (Auto) (1.4-6.5) K/uL Lymph # (Auto) (1.2-3.4) K/uL [place] # (Auto) (0.11-0.59) K/uL Eos # (Auto) (0-0.5) K/uL Baso # (Auto) (0-0.2) K/uL Platelet Estimate (Normal) Anisocytosis PT (9.0-12.0) Seconds INR (0.9-1.1) APTT (21.0-31.0) Seconds PTT Ratio ABG pH (7.35-7.45) ABG pCO2 (35-46) mmHg ABG pO2 (80-95) mmHg ABG HCO3 (19-24) mmol/L ABG O2 Saturation (90-95) % ABG Base Excess (-9-1.8) mEq/L Tacho Test (Pos) Barometric Pressure mm/Hg Oxygen Given Sodium (136-145) mmol/L Potassium (3.5-5.1) mmol/L Chloride (98-107) mmol/L Carbon Dioxide (21-32) mmol/L Anion Gap (3-11) BUN (7-18) mg/dl Creatinine (0.6-1.2) mg/dl Est Cr Clr Drug Dosing Est GFR ( Amer) Est GFR (Non-Af Amer) BUN/Creatinine Ratio (10-20) Glucose (70-99) mg/dl Estimat Average Glucose mg/dl Hemoglobin A1c (4.5-5.6) % Lactate (0.4-2.0) mmol/L Calcium (8.5-10.1) mg/dl Phosphorus (2.5-4.9) mg/dl Magnesium (1.8-2.4) mg/dl Total Bilirubin (0.2-1) mg/dl AST (15-37) U/L ALT (12-78) U/L Alkaline Phosphatase (45-117) U/L Troponin I (0-0.045) ng/ml NT-Pro-B Natriuret Pep (0-1800) pg/ml Total Protein (6.4-8.2) gm/dl Albumin (3.4-5.0) gm/dl Globulin (2.5-4.0) gm/dl Albumin/Globulin Ratio (0.9-2) Triglycerides (0-150) mg/dl Cholesterol (0-200) mg/dl LDL Cholesterol, Calc mg/dl VLDL Cholesterol, Calc mg/dl HDL Cholesterol mg/dl Cholesterol/HDL Ratio Procalcitonin 0.12 (0-0.5) ng/ml TSH (0.300-4.500) uIu/ml Urine Color Yellow Urine Appearance Clear (Clear) Urine pH 6.5 (4.5-7.5) Ur Specific [place] 1.012 (1.000-1.030) Urine Protein Negative (Negative) Urine Glucose (UA) Negative (Negative) Urine Ketones Negative (Negative) Urine Blood Trace H (Negative) Urine Nitrite Negative (Negative) Urine Bilirubin Negative (Negative) Urine Urobilinogen Negative (Negative) Ur Leukocyte Esterase 2+ H (Negative) Urine WBC (Auto) >30 H (0-5) /hpf Urine RBC (Auto) 5-10 H (0-4) /hpf U Hyaline Cast (Auto) 5-10 H (0-5) /lpf U Epithel Cells (Auto) 0-5 (0-5) /lpf Urine Bacteria (Auto) 1+ H (Negative) Influenza Type A (PCR) Neg for Influ A (Neg) Influenza Type B (PCR) Neg for Influ B (Neg) 06/16/19 06/16/19 06/16/19 Range/Units 15:23 15:20 15:20 WBC (4.8-10.8) K/uL RBC (4.2-5.4) M/uL Hgb (12.0-16.0) g/dL Hct (37-47) % MCV (80-100) fL MCH (25-34) pg MCHC (32-36) g/dL RDW Std Deviation (36.4-46.3) fL RDW Coeff of Kerry (11.5-14.5) % Plt Count (130-400) K/uL MPV (7.4-10.4) fL Immature Gran % (Auto) % Neut % (Auto) % Lymph % (Auto) % [place] % (Auto) % Eos % (Auto) % Baso % (Auto) % Immature Gran # (Auto) (0.00-0.02) K/uL Neut # (Auto) (1.4-6.5) K/uL Lymph # (Auto) (1.2-3.4) K/uL [place] # (Auto) (0.11-0.59) K/uL Eos # (Auto) (0-0.5) K/uL Baso # (Auto) (0-0.2) K/uL Platelet Estimate (Normal) Anisocytosis PT (9.0-12.0) Seconds INR (0.9-1.1) APTT (21.0-31.0) Seconds PTT Ratio ABG pH 7.49 H (7.35-7.45) ABG pCO2 44 (35-46) mmHg ABG pO2 50 L (80-95) mmHg ABG HCO3 32 H (19-24) mmol/L ABG O2 Saturation 87.1 L (90-95) % ABG Base Excess 8.0 H (-9-1.8) mEq/L Tacho Test Pos (Pos) Barometric Pressure 725.1 mm/Hg Oxygen Given 3 L Sodium (136-145) mmol/L Potassium (3.5-5.1) mmol/L Chloride (98-107) mmol/L Carbon Dioxide (21-32) mmol/L Anion Gap (3-11) BUN (7-18) mg/dl Creatinine (0.6-1.2) mg/dl Est Cr Clr Drug Dosing Est GFR ( Amer) Est GFR (Non-Af Amer) BUN/Creatinine Ratio (10-20) Glucose (70-99) mg/dl Estimat Average Glucose 146 mg/dl Hemoglobin A1c 6.7 H (4.5-5.6) % Lactate 2.0 (0.4-2.0) mmol/L Calcium (8.5-10.1) mg/dl Phosphorus (2.5-4.9) mg/dl Magnesium (1.8-2.4) mg/dl Total Bilirubin (0.2-1) mg/dl AST (15-37) U/L ALT (12-78) U/L Alkaline Phosphatase (45-117) U/L Troponin I (0-0.045) ng/ml NT-Pro-B Natriuret Pep (0-1800) pg/ml Total Protein (6.4-8.2) gm/dl Albumin (3.4-5.0) gm/dl Globulin (2.5-4.0) gm/dl Albumin/Globulin Ratio (0.9-2) Triglycerides (0-150) mg/dl Cholesterol (0-200) mg/dl LDL Cholesterol, Calc mg/dl VLDL Cholesterol, Calc mg/dl HDL Cholesterol mg/dl Cholesterol/HDL Ratio Procalcitonin (0-0.5) ng/ml TSH (0.300-4.500) uIu/ml Urine Color Urine Appearance (Clear) Urine pH (4.5-7.5) Ur Specific [place] (1.000-1.030) Urine Protein (Negative) Urine Glucose (UA) (Negative) Urine Ketones (Negative) Urine Blood (Negative) Urine Nitrite (Negative) Urine Bilirubin (Negative) Urine Urobilinogen (Negative) Ur Leukocyte Esterase (Negative) Urine WBC (Auto) (0-5) /hpf Urine RBC (Auto) (0-4) /hpf U Hyaline Cast (Auto) (0-5) /lpf U Epithel Cells (Auto) (0-5) /lpf Urine Bacteria (Auto) (Negative) Influenza Type A (PCR) (Neg) Influenza Type B (PCR) (Neg) 06/16/19 06/16/19 06/16/19 Range/Units 15:20 15:20 15:20 WBC 8.29 (4.8-10.8) K/uL RBC 4.11 L (4.2-5.4) M/uL Hgb 13.4 (12.0-16.0) g/dL Hct 41.7 (37-47) % MCV 101.5 H (80-100) fL MCH 32.6 (25-34) pg MCHC 32.1 (32-36) g/dL RDW Std Deviation 63.6 H (36.4-46.3) fL RDW Coeff of Kerry 17.1 H (11.5-14.5) % Plt Count 202 (130-400) K/uL MPV 11.0 H (7.4-10.4) fL Immature Gran % (Auto) 1.7 % Neut % (Auto) 68.4 % Lymph % (Auto) 20.0 % [place] % (Auto) 8.8 % Eos % (Auto) 0.5 % Baso % (Auto) 0.6 % Immature Gran # (Auto) 0.14 H (0.00-0.02) K/uL Neut # (Auto) 5.67 (1.4-6.5) K/uL Lymph # (Auto) 1.66 (1.2-3.4) K/uL [place] # (Auto) 0.73 H (0.11-0.59) K/uL Eos # (Auto) 0.04 (0-0.5) K/uL Baso # (Auto) 0.05 (0-0.2) K/uL Platelet Estimate Normal (Normal) Anisocytosis Present PT 12.3 H (9.0-12.0) Seconds INR 1.2 H (0.9-1.1) APTT 29.6 (21.0-31.0) Seconds PTT Ratio 1.1 ABG pH (7.35-7.45) ABG pCO2 (35-46) mmHg ABG pO2 (80-95) mmHg ABG HCO3 (19-24) mmol/L ABG O2 Saturation (90-95) % ABG Base Excess (-9-1.8) mEq/L Tacho Test (Pos) Barometric Pressure mm/Hg Oxygen Given Sodium 142 (136-145) mmol/L Potassium 4.1 (3.5-5.1) mmol/L Chloride 106 (98-107) mmol/L Carbon Dioxide 29 (21-32) mmol/L Anion Gap 7.0 (3-11) BUN 20 H (7-18) mg/dl Creatinine 1.61 H (0.6-1.2) mg/dl Est Cr Clr Drug Dosing Not Reportable Est GFR ( Amer) 33.0 Est GFR (Non-Af Amer) 28.5 BUN/Creatinine Ratio 12.4 (10-20) Glucose 122 H (70-99) mg/dl Estimat Average Glucose mg/dl Hemoglobin A1c (4.5-5.6) % Lactate (0.4-2.0) mmol/L Calcium 9.1 (8.5-10.1) mg/dl Phosphorus 3.0 (2.5-4.9) mg/dl Magnesium 2.0 (1.8-2.4) mg/dl Total Bilirubin 0.5 (0.2-1) mg/dl AST 34 (15-37) U/L ALT 26 (12-78) U/L Alkaline Phosphatase 59 (45-117) U/L Troponin I 0.049 H* (0-0.045) ng/ml NT-Pro-B Natriuret Pep 1741 (0-1800) pg/ml Total Protein 6.7 (6.4-8.2) gm/dl Albumin 2.8 L (3.4-5.0) gm/dl Globulin 3.9 (2.5-4.0) gm/dl Albumin/Globulin Ratio 0.7 L (0.9-2) Triglycerides (0-150) mg/dl Cholesterol (0-200) mg/dl LDL Cholesterol, Calc mg/dl VLDL Cholesterol, Calc mg/dl HDL Cholesterol mg/dl Cholesterol/HDL Ratio Procalcitonin (0-0.5) ng/ml TSH (0.300-4.500) uIu/ml Urine Color Urine Appearance (Clear) Urine pH (4.5-7.5) Ur Specific [place] (1.000-1.030) Urine Protein (Negative) Urine Glucose (UA) (Negative) Urine Ketones (Negative) Urine Blood (Negative) Urine Nitrite (Negative) Urine Bilirubin (Negative) Urine Urobilinogen (Negative) Ur Leukocyte Esterase (Negative) Urine WBC (Auto) (0-5) /hpf Urine RBC (Auto) (0-4) /hpf U Hyaline Cast (Auto) (0-5) /lpf U Epithel Cells (Auto) (0-5) /lpf Urine Bacteria (Auto) (Negative) Influenza Type A (PCR) (Neg) Influenza Type B (PCR) (Neg) Resident Activity Tracking Resident Involvement: Resident Care Provided Care Provided: Adult Hospital Medicine (1) Diastolic congestive heart failure Heart failure chronicity: acute on chronic Qualified Code(s): I50.33 - Acute on chronic diastolic (congestive) heart failure (2) UTI (urinary tract infection) Hematuria presence: without hematuria Urinary tract infection type: site unspecified Qualified Code(s): N39.0 - Urinary tract infection, site not specified (3) Apnea, sleep Sleep apnea type: obstructive Qualified Code(s): G47.33 - Obstructive sleep apnea (adult) (pediatric) (4) Alzheimers disease Alzheimer's disease onset: unspecified onset Dementia behavioral disturbance: without behavioral disturbance Qualified Code(s): G30.9 - Alzheimer's disease, unspecified; F02.80 - Dementia in other diseases classified elsewhere without behavioral disturbance (5) Hypertension Hypertension type: essential hypertension Qualified Code(s): I10 - Essential (primary) hypertension
[2019-06-17] MEDS ORDERED: cefTRIAXone SODIUM 2,000 MG in DEXTROSE 5% 50 ML IV SCH (16:00)
[2019-06-17] MEDS: DIGOXIN 0.125 MG TAB PO SCH (17:04)
[2019-06-17] MEDS: FUROSEMIDE 80 MG TAB PO SCH (17:04)
[2019-06-17] MEDS: DONEPEZIL HCL 10 MG TAB PO SCH (21:56)
[2019-06-18] MEDS: NITROGLYCERIN 2% OINTMENT 30GM TUBE EXT SCH ×3 (00:25→13:05)
[2019-06-18] MEDS: ALBUT/IPRATROP 3MG/0.5MG NEB 3 ML VIAL NEB SCH ×6 (03:20→22:25)
[2019-06-18] MEDS: LEVOTHYROXINE SODIUM 125 MCG TABLET PO SCH (06:02)
[2019-06-18] MEDS: DOXYCYCLINE HYCLATE 100 MG in DEXTROSE 5% 100 ML IV SCH ×2 (06:09→17:22)
[2019-06-18] MEDS: BUDESONIDE 0.5 MG/2 ML VIAL (PULMICORT) INH SCH ×2 (07:02→19:42)
--- NOTE | 2019-06-18 07:13 | Billing Data ---
Date of Service June 17, 2019 Coding Level of Care Code 04052 Subseq Hosp Care Lvl 3 Time Spent (min) 35
[2019-06-18 08:05] LABS: Basophils # (auto) 0.03 K/uL (0-0.2); Basophils % (auto) 0.3 %; Eosinophils # (auto) 0.01 K/uL (0-0.5); Eosinophils % (auto) 0.1 %; Hematocrit (blood only) 45.4 % (37-47); Hemoglobin 14.2 g/dL (12.0-16.0); Immature Granulocytes % (auto) 0.9 %; Lymphocytes # (auto) 2.08 K/uL (1.2-3.4); Lymphocytes % (auto) 18.5 %; Mean Corpuscular Hemoglobin 31.9 pg (25-34); Mean Corpuscular Hgb Conc 31.3 g/dL (32-36); Mean Platelet Volume 10.8 fL (7.4-10.4); Monocytes # (auto) 0.83 K/uL (0.11-0.59); Monocytes % (auto) 7.4 %; Neutrophils % (auto) 72.8 %; Platelet Count 190 K/uL (130-400); RDW Coefficient of Variation 17.3 % (11.5-14.5); RDW Standard Deviation 64.6 fL (36.4-46.3); Red Blood Count 4.45 M/uL (4.2-5.4); White Blood Count 11.25 K/uL (4.8-10.8)
[2019-06-18] MEDS: CALCIUM 600MG + VIT D 400 IU TAB PO SCH (08:18)
[2019-06-18] MEDS: FUROSEMIDE 80 MG TAB PO SCH ×2 (08:18→16:57)
[2019-06-18] MEDS: AMIODARONE 200 MG TAB PO SCH (08:18)
[2019-06-18] MEDS: APIXABAN 2.5 MG TAB PO SCH ×2 (08:18→21:40)
[2019-06-18] MEDS: SPIRONOLACTONE 25 MG TAB PO SCH (08:18)
[2019-06-18] MEDS: SERTRALINE HCL 100 MG TABLET PO SCH (08:18)
[2019-06-18] MEDS: POTASSIUM CHLORIDE 20 MEQ TABCR PO SCH ×3 (08:19→21:39)
[2019-06-18] MEDS: MEMANTINE HCL 5 MG TAB PO SCH (08:19)
[2019-06-18] MEDS: PANTOprazole 40 MG TAB PO SCH (08:19)
[2019-06-18] MEDS ORDERED: metOLazone 2.5 MG TABLET PO SCH (08:30)
[2019-06-18 08:36] LABS: Albumin Level 2.7 gm/dl (3.4-5.0); BUN Creatinine Ratio 19.8 (10-20); Calcium 8.7 mg/dl (8.5-10.1); Creatinine Clr Calc Pharmacy 35.6 ml/min; Est GFR (African American) 38.4; Est GFR (Non-African American) 33.1; Potassium 3.6 mmol/L (3.5-5.1)
[2019-06-18 08:38] LABS: Albumin Globulin Ratio 0.7 (0.9-2); Bilirubin,Total 0.4 mg/dl (0.2-1); Total Protein 6.7 gm/dl (6.4-8.2)
[2019-06-18] MEDS: METOPROLOL SUCC 50MG EXT REL TAB PO SCH (11:25)
--- NOTE | 2019-06-18 12:37 | Hospitalist Progress Note ---
Date of Service June 18, 2019 Assessment & Plan (1) UTI (urinary tract infection): 89 yo F with PMH CKD Stage 3, chronic hypoxic respiratory failure, diastolic heart failure, Afib s/p pacemaker placement, obesity who is on hospice care at [facility] and brought in to ED by her daughter for concern of a fever and worsening cough that she wanted investigated. Patient's dementia is quite debilitating and clarification of symptoms from her is difficult. 1. UTI - UA showed 2+ LE, >30 WBC, 1+ bacteria - coverage with Ceftriaxone IV UCx growing enterococcus, awaiting sensitivities and will switch Abx at that time 2. Elevated troponin -Patient had a mildly elevated troponin on admission at 0.043 which subsequently decreased and then bumped up to 0.056 Patient does not exhibit any chest pain on exam, has not had any abnormal heart rhythms, has not been tachycardic or hypertensive, has had a normal EKG. We will continue to trend, likely secondary to CKD stage III and stress 3. Stage II diastolic heart failure -proBNP of 1729 on admission Patient does not appear to be fluid overloaded on exam. No peripheral edema noted no crackles on exam. No JVD noted. Patient received 40 mg of IV Lasix in the emergency department. At this time switch back to p.o. 80 mg of Lasix twice a day as per home regimen. 4. Hospice status Have requested POLST form from [facility] to be faxed Patient labeled as DNR/DNI for now 5. Hypothyroidism TSH on admission 6.7 - Patient takes 125 mcg of levothyroxine every morning. Vision and TSH may be acute secondary to stress or infection outpatient regimen may need to be adjusted after discharge. 6. Chronic hypoxic respiratory failure - Saturating well on 3 L of nasal cannula in room as per home regimen -Received IV steroids in the emergency department however this seems unlikely to be a COPD exacerbation. -Patient would benefit from continued DuoNeb use in the hospital. - given metronidazole in ED as well as doxycycline for aspiration coverage - will continue to monitor O2 needs and clinical image of PNA/pneumonitis 7. Alzheimer's -Continued home medications of memantine and donepezil 8. Atrial fibrillation status post pacemaker placement -Anticoagulation with Eliquis 2.5 mg twice a day -Control maintained with digoxin 125 mcg a day, Toprol 200 once a day 9. GERD - omeprazole 20 qAM DVT ppx: on Eliquis 2.5mg GI: heart healthy Code Status: DNR/DNI (2) CKD (chronic kidney disease), stage III: (3) Diabetes: (4) AMBER (acute kidney injury): (5) Diastolic congestive heart failure: (6) Cardiac pacemaker: (7) AF (paroxysmal atrial fibrillation): (8) Apnea, sleep: (9) Chronic respiratory failure with hypoxia: (10) Alzheimers disease: (11) Hypertension: Admission and Anticipated Discharge Date Admission Date: June 16, 2019 Supervising Physician Co-Signing Physician Notes I personally examined the patient and verified all orozco points of history and exam, discussed case, and agree with decision making with Dr Ferrari. No complaints. Notes that she is feeling okay. Denies pain or shortness of breath. Extremely limited historian due to severe dementia. Patient known to me from prior admission. Vitals noted, in general she is awake and alert pleasant no distress. HEENT normocephalic atraumatic mucous membranes moist. Lungs show coarse rhonchi throughout although she does have good air entry, no accessory muscle use good effort. Skin shows no rashes no pallor or icterus. Neuro shows no focal deficits. Febrile illnessgiven her lung findings and hypoxia, I strongly suspect she had a non-flu viral respiratory infection as the main culprit. Continue oxygen and supportive care. Questionable urinary tract infectiongiven her dementia it is nearly impossible to discern if she has any urinary symptoms, and given that the fever could have been from this as well, we feel obligated to treat. Awaiting culture results, streamline antibiotics to as narrow as possible. That said, given that she has been on ceftriaxone and doxycycline, ceftriaxone would not be covering enterococcus (discontinued), and if it is resistant to tetracyclines (as it had been in the past), then it may be good evidence that this was asymptomatic bacteriuria all along, and that the fever was related to her viral respiratory illness. Stable for medical, otherwise as above. Hopefully home to [facility] tomorrow pending final results of urine culture and ongoing clinical stability. Subjective Pleasant 85 yo F admitted for questionable fever and cough from [facility]. This morning more aware of surroundings and more responsive to questions. Review of Systems Constitutional: no fever, no chills, no body aches and no fatigue Respiratory: no cough and no dyspnea Cardiovascular: no chest pain, no dyspnea and no edema Gastrointestinal: no abdominal pain, no nausea, no vomiting, no constipation and no diarrhea/loose stools Genitourinary: no dysuria Physical Exam Constitutional: well developed and well nourished; no acute distress and no altered mental status Respiratory: normal respiratory effort and + cough; no respiratory distress and no labored breathing Auscultation: + rhonchi and + wheezes; no crackles Cardiovascular: RRR, no murmur, no edema Gastrointestinal (Abdomen): Inspection/Auscultation: abdomen normal to inspection and normal bowel sounds; abdomen not distended Percussion/Palpation: abdomen nontender Results & Data ([facility]) Vital Signs (Past 12 Hours) Vital Signs Temp Pulse Pulse Resp BP Pulse Ox 06/18/19 11:41 60 18 98 06/18/19 11:17 37.2 C 60 18 120/67 97 06/18/19 08:00 60 06/18/19 07:13 37 C 60 22 99/61 L 93 06/18/19 07:05 59 L 18 95 06/18/19 04:11 36.7 C 60 22 107/54 L 97 06/18/19 03:22 64 20 92 06/18/19 03:21 64 20 92 Resident Activity Tracking Resident Involvement: Resident Care Provided Care Provided: Adult Hospital Medicine (1) Diastolic congestive heart failure Heart failure chronicity: acute on chronic Qualified Code(s): I50.33 - Acute on chronic diastolic (congestive) heart failure (2) UTI (urinary tract infection) Hematuria presence: without hematuria Urinary tract infection type: site unspecified Qualified Code(s): N39.0 - Urinary tract infection, site not specified (3) Apnea, sleep Sleep apnea type: obstructive Qualified Code(s): G47.33 - Obstructive sleep apnea (adult) (pediatric) (4) Alzheimers disease Alzheimer's disease onset: unspecified onset Dementia behavioral disturbance: without behavioral disturbance Qualified Code(s): G30.9 - Alzheimer's disease, unspecified; F02.80 - Dementia in other diseases classified elsewhere without behavioral disturbance (5) Hypertension Hypertension type: essential hypertension Qualified Code(s): I10 - Essential (primary) hypertension
[2019-06-18] MEDS: DIGOXIN 0.125 MG TAB PO SCH (16:56)
--- NOTE | 2019-06-18 18:48 | Billing Data ---
Date of Service June 18, 2019 Coding Level of Care Code 56923 Subseq Hosp Care Lvl 2
[2019-06-18] MEDS: DONEPEZIL HCL 10 MG TAB PO SCH (21:40)
[2019-06-19] MEDS: ALBUT/IPRATROP 3MG/0.5MG NEB 3 ML VIAL NEB SCH ×3 (03:30→11:10)
[2019-06-19] MEDS: LEVOTHYROXINE SODIUM 125 MCG TABLET PO SCH (06:06)
[2019-06-19] MEDS: DOXYCYCLINE HYCLATE 100 MG in DEXTROSE 5% 100 ML IV SCH (06:36)
[2019-06-19 06:55] LABS: Basophils # (auto) 0.08 K/uL (0-0.2); Basophils % (auto) 0.8 %; Eosinophils # (auto) 0.09 K/uL (0-0.5); Eosinophils % (auto) 0.9 %; Hematocrit (blood only) 42.6 % (37-47); Hemoglobin 13.3 g/dL (12.0-16.0); Immature Granulocytes # (auto) 0.18 K/uL (0.00-0.02); Immature Granulocytes % (auto) 1.8 %; Lymphocytes # (auto) 2.73 K/uL (1.2-3.4); Lymphocytes % (auto) 26.7 %; Mean Corpuscular Hemoglobin 31.7 pg (25-34); Mean Corpuscular Hgb Conc 31.2 g/dL (32-36); Mean Corpuscular Volume 101.7 fL (80-100); Mean Platelet Volume 10.7 fL (7.4-10.4); Monocytes # (auto) 0.96 K/uL (0.11-0.59); Monocytes % (auto) 9.4 %; Neutrophils # (auto) 6.19 K/uL (1.4-6.5); Neutrophils % (auto) 60.4 %; Platelet Count 196 K/uL (130-400); RDW Coefficient of Variation 17.3 % (11.5-14.5); RDW Standard Deviation 65.2 fL (36.4-46.3); Red Blood Count 4.19 M/uL (4.2-5.4); White Blood Count 10.23 K/uL (4.8-10.8)
[2019-06-19] MEDS: BUDESONIDE 0.5 MG/2 ML VIAL (PULMICORT) INH SCH (07:05)
[2019-06-19 07:34] LABS: Albumin Globulin Ratio 0.6 (0.9-2); Albumin Level 2.5 gm/dl (3.4-5.0); BUN Creatinine Ratio 20.2 (10-20); Bilirubin,Total 0.5 mg/dl (0.2-1); Calcium 8.5 mg/dl (8.5-10.1); Est GFR (African American) 33.7; Est GFR (Non-African American) 29.1; Globulin 4.1 gm/dl (2.5-4.0); Potassium 4.3 mmol/L (3.5-5.1); Total Protein 6.6 gm/dl (6.4-8.2)
[2019-06-19] MEDS: METOPROLOL SUCC 50MG EXT REL TAB PO SCH (08:52)
[2019-06-19] MEDS: SERTRALINE HCL 100 MG TABLET PO SCH (08:52)
[2019-06-19] MEDS: CALCIUM 600MG + VIT D 400 IU TAB PO SCH (08:53)
[2019-06-19] MEDS: AMIODARONE 200 MG TAB PO SCH (08:53)
[2019-06-19] MEDS: FUROSEMIDE 80 MG TAB PO SCH (08:53)
[2019-06-19] MEDS: POTASSIUM CHLORIDE 20 MEQ TABCR PO SCH (08:53)
[2019-06-19] MEDS: SPIRONOLACTONE 25 MG TAB PO SCH (08:53)
[2019-06-19] MEDS: MEMANTINE HCL 5 MG TAB PO SCH (08:53)
[2019-06-19] MEDS: PANTOprazole 40 MG TAB PO SCH (08:53)
[2019-06-19] MEDS: APIXABAN 2.5 MG TAB PO SCH (08:53)
--- NOTE | 2019-06-19 09:30 | Discharge Summary ---
Date of Service June 19, 2019 Admission HPI Per Admitting Provider The patient is an 89 years old female with past medical history of congestive heart failure, chronic diastolic respiratory failure, dysphagia, morbid obesity, cardiac pacemaker, atrial fibrillation, obstructive sleep apnea, hypertension, Alzheimer disease, on hospice [facility] since March 2019, who was sent to the hospital for evaluation of her fever and worsening cough, congestion, fever and chills. Patient is poor historian and limited to ROS due to profound Alzheimer dementia. Patient is chronically on supplemental oxygen 3 L. Labs are reviewed: WBC is 8.29, hemoglobin 13.4, hematocrit 41.7, platelets 202, PT 12.3, INR 1.2, APTT 29.6, ABG 7.49, PO2 50, HCO3 32, PCO2 244, lactate 1.7, troponin 0.0 49, BNP 1729, albumin 2.8, TSH 6.7, T4 pending. Urine blood trace, leukocyte Estrace 2+, urine WBCs 30, urine RBCs 5-10, epithelial cells 0-5, urine bacteria 1+, negative for influenza A&B. Chest x-rays stable cardiomegaly with resolved mild congestive changes. Decision was made to admit patient to PCU on telemetry for acute on chronic respiratory failure, acute UTI and possibly aspiration pneumonia. Principal Diagnosis Urinary tract infection Discharge Exam Constitutional well developed and well nourished; no acute distress and no altered mental status Eyes PERRL, conjunctivae normal, anicteric sclerae Respiratory normal respiratory effort and + cough; no respiratory distress and no labored breathing Auscultation: + rhonchi and + wheezes; no crackles Cardiovascular RRR, no murmur, no edema Gastrointestinal (Abdomen) Inspection/Auscultation: abdomen normal to inspection and normal bowel sounds; abdomen not distended Percussion/Palpation: abdomen nontender Neurologic + confused Psychiatric Orientation: alert; + not oriented x 3 Eye Contact: + fair eye contact Discharge Data Allergies Allergy/AdvReac Type Severity Reaction Status Date / Time No Known Allergies Allergy Verified 06/16/19 17:03 Consultations 06/16/19 16:37 ED Decision to Admit Stat Hospital Course (1) UTI (urinary tract infection): 89 yo F with PMH CKD Stage 3, chronic hypoxic respiratory failure, diastolic heart failure, Afib s/p pacemaker placement, obesity who is on hospice care at [facility] and brought in to ED by her daughter for concern of a fever and worsening cough that she wanted investigated. Patient's dementia is quite debilitating and clarification of symptoms from her is difficult. 1. UTI - UA showed 2+ LE, >30 WBC, 1+ bacteria - covered with Ceftriaxone IV while inpatient x 3 days UCx growing enterococcus faecalis, sensitive to ampicillin and macrobid. - Will complete 5 day total course of abx by sending on 2 days of antibiotics: amoxicillin 250 BID x 2 days 2. Elevated troponin -Patient had a mildly elevated troponin on admission at 0.043 which subsequently decreased and then bumped up to 0.056 Patient does not exhibit any chest pain on exam, has not had any abnormal heart rhythms, has not been tachycardic or hypertensive, has had a normal EKG. We will continue to trend, likely secondary to CKD stage III and stress 3. Stage II diastolic heart failure -proBNP of 1729 on admission Patient does not appear to be fluid overloaded on exam. No peripheral edema noted no crackles on exam. No JVD noted. Patient received 40 mg of IV Lasix in the emergency department. -Switched back to p.o. 80 mg of Lasix twice a day as per home regimen. 4. Hospice status Have received POLST form from [facility] to be faxed Patient DNR/DNI, ok for antibiotics for conditions which would extend life/wellbeing. 5. Hypothyroidism TSH on admission 6.7 - Patient takes 125 mcg of levothyroxine every morning. Vision and TSH may be acute secondary to stress or infection outpatient regimen may need to be adjusted after discharge. 6. Chronic hypoxic respiratory failure - Saturating well on 3 L of nasal cannula in room as per home regimen - Received IV steroids in the emergency department however this seems unlikely to be a COPD exacerbation. - will continue to monitor O2 needs and clinical image of PNA/pneumonitis 7. Alzheimer's -Continued home medications of memantine and donepezil 8. Atrial fibrillation status post pacemaker placement -Anticoagulation with Eliquis 2.5 mg twice a day -Control maintained with digoxin 125 mcg a day, Toprol 200 once a day 9. GERD - omeprazole 20 qAM DVT ppx: continue Eliquis 2.5mg Code Status: DNR/DNI (2) CKD (chronic kidney disease), stage III: (3) Diabetes: (4) AMBER (acute kidney injury): (5) Diastolic congestive heart failure: (6) Cardiac pacemaker: (7) AF (paroxysmal atrial fibrillation): (8) Apnea, sleep: (9) Chronic respiratory failure with hypoxia: (10) Alzheimers disease: (11) Hypertension: Total Time Total Time Spent Total Time Spent (In Minutes): <30 Discharge Plan Discharge Items Patient Disposition: Hospice - Medical Facility Reason For Visit: ACUTE ON CHRONIC RESP FAILURE, UTI, ASPIRATION PNE Discharge Diagnosis: UTI Activity: Per Instructions section Non-emergency contact: Primary Care Provider Call non-emergency contact if: you have any medication questions, your symptoms worsen and your temperature is above 101.5 Follow-up/Referrals: [facility], [Primary Care Provider] - Diet: Regular and Other - See Diet Comment Diet Comment: Previous diet may be resumed Addtl Attending Provider Instructions: 89 yo F with PMH CKD Stage 3, chronic hypoxic respiratory failure, diastolic heart failure, Afib s/p pacemaker placement, obesity who is on hospice care at [facility] and brought in to ED by her daughter for concern of a fever and worsening cough that she wanted investigated. Patient's dementia is quite debilitating and clarification of symptoms from her is difficult. 1. UTI - UA showed 2+ LE, >30 WBC, 1+ bacteria - covered with Ceftriaxone IV while inpatient x 3 days UCx growing enterococcus faecalis, sensitive to ampicillin and macrobid. - Will complete 5 day total course of abx by sending on 2 days of antibiotics (amoxicillin 250 BID x 2 days) 2. Elevated troponin -Patient had a mildly elevated troponin on admission at 0.043 which subsequently decreased and then bumped up to 0.056 Patient does not exhibit any chest pain on exam, has not had any abnormal heart rhythms, has not been tachycardic or hypertensive, has had a normal EKG. We will continue to trend, likely secondary to CKD stage III and stress 3. Stage II diastolic heart failure -proBNP of 1729 on admission Patient does not appear to be fluid overloaded on exam. No peripheral edema noted no crackles on exam. No JVD noted. Patient received 40 mg of IV Lasix in the emergency department. -Switched back to p.o. 80 mg of Lasix twice a day as per home regimen. 4. Hospice status Have received POLST form from [facility] [place] to be faxed Patient DNR/DNI, ok for antibiotics for conditions which would extend life/wellbeing. 5. Hypothyroidism TSH on admission 6.7 - Patient takes 125 mcg of levothyroxine every morning. Vision and TSH may be acute secondary to stress or infection outpatient regimen may need to be adjusted after discharge. 6. Chronic hypoxic respiratory failure - Saturating well on 3 L of nasal cannula in room as per home regimen - Received IV steroids in the emergency department however this seems unlikely to be a COPD exacerbation. - will continue to monitor O2 needs and clinical image of PNA/pneumonitis 7. Alzheimer's -Continued home medications of memantine and donepezil 8. Atrial fibrillation status post pacemaker placement -Anticoagulation with Eliquis 2.5 mg twice a day -Control maintained with digoxin 125 mcg a day, Toprol 200 once a day 9. GERD - omeprazole 20 qAM DVT ppx: continue Eliquis 2.5mg Code Status: DNR/DNI Pending Studies at Discharge: No Stand-Alone Forms: My [facility] Skilled Items Patient informed of condition?: Yes DNR: Yes Discharge Level of Care: Skilled Communicable Disease: No Discharge Prognosis: Other Lines: None Urinary Catheter: No Medications and DC Order Prescriptions: New amoxicillin 250 mg capsule 250 mg PO BID 2 Days Qty: 4 RF: 0 Continued Breo Ellipta 200-25 mcg/dose blister with device 1 inh INHALATION DAILY Qty: 60 RF: 5 digoxin 125 mcg (0.125 mg) tablet 0.125 mcg PO QAM Qty: 30 RF: 5 metoprolol succinate 200 mg tablet extended release 24 hr 200 mg PO QAM Qty: 30 RF: 5 potassium chloride [Klor-Con M20] 20 mEq tablet,ER particles/crystals 40 meq PO TID Qty: 180 RF: 5 sertraline 100 mg tablet 100 mg PO QAM Qty: 30 RF: 5 metolazone 2.5 mg tablet 2.5 mg PO 3XWK Qty: 12 RF: 5 (DME) Hospital Bed Misc See Rx Instructions .ROUTE .MEDSUPPLY Qty: 1 RF: 0 docusate sodium 100 mg capsule 100 mg PO BID PRN (Reason: Constipation) RF: 0 acetaminophen 500 mg capsule 500 mg PO Q4H MDD 3 GRAMS/24 HOURS PRN (Reason: Pain/fever) RF: 0 furosemide 80 mg tablet 80 mg PO BID RF: 0 sennosides [senna] 8.6 mg Tablet 8.6 mg PO DAILY PRN (Reason: Constipation) RF: 0 albuterol sulfate 2.5 mg /3 mL (0.083 %) Solution For Nebulization 2.5 mg INHALATION QID PRN (Reason: Wheezing) RF: 0 bisacodyl 10 mg Suppository 10 mg MS DAILY PRN (Reason: Constipation) RF: 0 amiodarone 200 mg tablet 200 mg PO QAM RF: 0 memantine [Namenda] 5 mg tablet 5 mg PO QAM RF: 0 budesonide 0.5 mg/2 mL suspension for nebulization 2 ml inhalation BID RF: 0 calcium carbonate-vitamin D3 [Oyster Shell Calcium-Vit D3] 500 mg(1,250mg) - 200 unit Tablet 1 tab PO QAM RF: 0 acetaminophen 650 mg Suppository 650 mg MS Q4H MDD 3 GRAMS/24 HOURS PRN (Reason: Fever Or Pain) RF: 0 diphenhydramine HCl [Banophen] 25 mg Capsule 25 mg PO Q6H PRN (Reason: Itch/Rash) RF: 0 ondansetron 4 mg Tablet,Disintegrating 4 mg PO Q4H PRN (Reason: Nausea) RF: 0 ipratropium-albuterol 0.5 mg-3 mg(2.5 mg base)/3 mL solution for nebulization 3 ml INHALATION Q6H PRN (Reason: Shortness Of Breath Or Wheezing) RF: 0 spironolactone 25 mg tablet 25 mg PO QAM RF: 0 levothyroxine 125 mcg tablet 125 mcg PO QAM RF: 0 omeprazole 20 mg capsule,delayed release(DR/EC) 20 mg PO QAM RF: 0 Eliquis 5 mg tablet 5 mg PO Q12H RF: 0 morphine 10 mg/mL Solution 10 mg sublingual Q2H PRN (Reason: Pain or Respiratory Distress) RF: 0 atropine 1 % drops 2 drp sublingual Q1H PRN (Reason: S/S Terminal Secretions) RF: 0 loperamide 2 mg Capsule 2 mg PO Q4H PRN (Reason: Loose Stool) RF: 0 donepezil [Aricept] 10 mg tablet 10 mg PO HS RF: 0 nystatin 100,000 unit/gram Powder 1 applic TOPICAL TID PRN (Reason: Rash) RF: 0 Discharge Orders: Discharge Order (Routine); Ordered 06/19/19 Ordered By: Cat Luther/Other Patient Handouts: A1C Admission Data Admit Date/Time: 06/16/19 18:14 Attending Provider: Jefferson Castro Admit Provider: Aguila Lilly Primary Care Provider: Chantell, Other Providers: Jason Barnes ; Aguila Lilly Other Interventions: Discharge Summary Assessment (RN) Last Done: 06/19/19 11:09 DC Date/Time DO NOT enter until pt leaves facility: 06/19/19 13:26 Supervising Physician Co-Signing Physician Notes I personally examined the patient and verified all orozco points of history and exam, discussed case, and agree with decision making with Dr Ledezma. Resting comfortably, for discharge today. Vitals noted, in general she is resting comfortably no distress. HEENT normocephalic atraumatic. Breathing is unlabored no accessory muscle use, good even restful chest rise and fall. Skin shows no pallor or icterus. Febrile illnessgiven her lung findings and hypoxia, I strongly suspect she had a non-flu viral respiratory infection as the main culprit. Continue oxygen (unclear how long she will need this, but given her dementia and how familiar [facility] is to her, it is more beneficial for her to be at [facility] even with oxygen and then to continue to be in the hospital trying to titrate it down when it may take quite a while). Questionable urinary tract infectiongiven her dementia it is nearly impossible to discern if she has any urinary symptoms, and given that the fever could have been from this as well, we feel obligated to treat. Finish out short course of antibiotics Stable for return to [facility] Resident Activity Tracking Resident Involvement: Resident Care Provided Care Provided: Adult Hospital Medicine
--- NOTE | 2019-06-19 16:37 | Billing Data ---
Date of Service June 19, 2019 Coding Level of Care Code D/C Day Management <30 mins
--- NOTE | 2019-06-24 07:44 | Coding Query ---
To promote full compliance with coding requirements relating to patient care, provider participation is requested in all cases of manager of business operations uncertainty. Please assist us with the question(s) below: Coding Question(s): The diagnoses) below were documented in the progress notes, then subsequently fell off all further documentation. Please indicate if they were present during this admission and treated or ruled out. Physician's Response(s): ASPIRATION PNEUMONIA ( ) Diagnosed and POA ( ) Diagnosed and not POA ( x ) Ruled out ( ) Other (please specify) ACUTE ON CHRONIC RESPIRATORY FAILURE ( ) Diagnosed and POA ( ) Diagnosed and not POA ( ) Ruled out ( x ) Other (please specify) acute respiratory failure present on admission, no prior chronic; did have O2 when leaving but more due to ongoing/subacute ACUTE ON CHRONIC DIASTOLIC HEART FAILURE ( x ) Diagnosed and POA ( ) Diagnosed and not POA ( ) Ruled out ( ) Other (please specify) ACUTE KIDNEY INJURY ( ) Diagnosed and POA ( ) Diagnosed and not POA ( x ) Ruled out (baseline CKD3) ( ) Other (please specify) DEMAND ISCHEMIA x ) Diagnosed and POA ( ) Diagnosed and not POA ( ) Ruled out ( ) Other (please specify) COPD ( ) Diagnosed and POA ( ) Diagnosed and not POA ( x ) Ruled out ( ) Other (please specify) Thank you for your time, KRISTOFER Valentine, [facility]
== END 2019-06-19 13:26 | disposition hospice, inpatient (51) | DRG 689 ==
LOC: ED 13:42 → 2S 18:14 → SUATTDRO 18:14 → 2S 19:04 → 3N 06-18 12:34